=== PATIENT | female | born 1950 | race Caucasian/White ===

== ENCOUNTER → 2023-02-08 13:36 | Outpatient (BNVA) | payer MEDICARE, OTHER, SELFPAY | PROVIDERS: PCP Internal Medicine; Visit Provider Hospitalist | DX: J45.909 Unspecified asthma, uncomplicated (principal); R06.09 Other forms of dyspnea; I27.82 Chronic pulmonary embolism; I27.20 Pulmonary hypertension, unspecified; G47.33 Obstructive sleep apnea (adult) (pediatric) | CPT/HCPCS: 99202 ==

== ENCOUNTER 2023-02-21 10:24 | Outpatient (REF) | payer MEDICARE, OTHER, SELFPAY ==
--- NOTE | ~2023-02-21 | XR_ITS ---
EXAMINATION: XR CHEST 2 VIEWS CLINICAL INFORMATION: Cough. COMPARISON: Chest radiographs dated 05/19/2011. TECHNIQUE: Frontal and lateral views of the chest were obtained. FINDINGS: The heart, great vessels, pulmonary vasculature and mediastinum are normal. The lungs show no focal infiltrate, effusion or pneumothorax. There is minimal linear scar/subsegmental atelectasis at the lateral left base, similar to 05/19/2011. There is no acute osseous abnormality. XR/XR chest 2V IMPRESSION: 1. No focal infiltrate or congestive heart failure is seen. 2. There is chronic minimal scar/subsegmental atelectasis at the lateral left base.
== END 2023-02-21 10:25 | disposition home or self-care (01) ==
LOC: HO.RESP 10:24
PROVIDERS: PCP Internal Medicine; Visit Provider Hospitalist
DX: I27.82 Chronic pulmonary embolism (principal)
CPT/HCPCS: 71046; 78580; 94060; 94727; 94729; A9540

== ENCOUNTER 2023-03-16 09:53 | Outpatient (AMB) | payer MEDICARE, OTHER, SELFPAY ==
--- NOTE | 2023-03-16 09:56 | A.OFFVIS_ITS ---
Intake Vital Signs 03/16/23 09:57 Height 5 ft 4 in Weight 167 lb 8.821 oz BMI 28.8 BP 128/72 Blood Pressure Location Lt brachial Position Sitting Pulse 59 Pulse Source Pulse Oximeter Pulse Oximetry (%) 92 Oxygen Delivery Method Room Air Intake Visit Reasons: sick visit Allergies hydromorphone [From Dilaudid] Allergy (Severe, Verified 03/16/23 10:04) Confusion Sulfa Drugs Allergy (Severe, Uncoded 03/16/23 10:04) Rash HPI sick visit HPI Details is a very pleasant 72 year old female, followed for asthma, JACKIE on CPAP, supplemental oxygen with exertion and chronic pulmonary embolism, on eliquis, 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 At baseline, she is moderately controlled on flovent, singulair, spiriva, xopenex, lasix and flonase. Today she presents for an acute visit. She reports dry cough in the morning the past two days with associated fatigue and chills. She had brown sputum yesterday morning and then this morning had white sputum. Both only occurring once, upon awakening. She denies any fevers or sick contacts, but did report chills yesterday. She denies any chest tightness, new chest pain or hemoptysis. She denies any wheezing or persistent cough throughout the day. Her concern is that she had similar symptoms in the past and ended up admitted with pneumonia. Of note, she also reports redness of right wrist with associated swelling and pain with movement. She reports mild itchiness of the skin and initially though it was poison petra. She denied any injury. She has had this for three days and feels it has been worsening. Advised to go to urgent care for imaging to rule out cellulitis vs septic arthritis. [facility] Medical History (Updated 03/16/23 @ 12:08 by Marquita Mosqueda NP) Asthma Dyspnea JACKIE (obstructive sleep apnea) Pulmonary emboli Pulmonary hypertension Social History Patient Tobacco Use Status: Never used Tobacco Review of Systems ENT Reports Normal hearing present Neuro Reports Normal hearing present Physical Exam Vital Signs: Last Vital Signs Pulse 59 03/16/23 09:57 BP 128/72 03/16/23 09:57 Pulse Ox 92 03/16/23 09:57 Oxygen Delivery Method Room Air 03/16/23 09:57 BMI result Body Mass Index 28.8 Const General: cooperative, healthy appearing, comfortable, no acute distress, well developed and alert Orientation/consciousness: patient oriented x3 Limitations: no limitations HEENT Head: Yes normal to inspection, Yes normocephalic and Yes atraumatic Ears: hearing grossly normal bilaterally and external ears normal Eyes Other: subconjuctival hemorrhage of right eye per Ophthalmology Eyelids: Yes eyelids normal Sclerae: scleral abnormal right EOM: EOMs intact bilaterally Neck Neck: Yes normal visual inspection and Yes no lymphadenopathy Lymphatic: no lymphadenopathy noted Chest Chest palpation & inspection: normal inspection of the chest Resp Effort & Inspection: normal respiratory effort, able to speak in complete sentences, no audible wheezes, no cough, no stridor, not tachypneic, no tripod positioning and no use of accessory muscles Auscultation: clear to auscultation bilaterally Cardio Jugular venous distension: no JVD Rate: regular rate Rhythm: regular rhythm Skin Other: skin warm. right wrist with erythematous and edematous in proximity of distal radius with appearance of ulceration centrally as well as noted limited mobility of wrist Neuro General: patient oriented x3 Cranial nerves: Yes Normal hearing present Cognition (Neuro): normal cognition Gait exam (Neuro): Normal gait present Extrem General: Yes normal to inspection, Yes capillary refill normal and Yes no pedal edema Psych Appearance: grossly normal and well kempt Speech and movement: Normal speech and movement present and Clear speech present Affect: normal affect Attitude: cooperative Thought process: Normal thought process present Thought content: Normal thought content present Insight: Good insight present (Psych) Judgement: Good judgement present (Psych) Assessment & Plan Assessment & Plan (1) Asthma: Code(s): J45.909 - Unspecified asthma, uncomplicated (2) JACKIE (obstructive sleep apnea): Code(s): G47.33 - Obstructive sleep apnea (adult) (pediatric) (3) Pulmonary hypertension: Code(s): I27.20 - Pulmonary hypertension, unspecified (4) Pulmonary emboli: Code(s): I26.99 - Other pulmonary embolism without acute cor pulmonale Qualifiers: Pulmonary embolism type: other Chronicity: chronic Acute cor pulmonale presence: unspecified Qualified Code(s): I27.82 - Chronic pulmonary embolism Plan 's symptoms at this time do not warrant antibiotics but if increased sputum production develops or continued brown sputum occurs advised taking a zpak and obtain CXR. Will put orders in preemptively. Discussed with patient, given her prior history of PE, if she develops worsening shortness of breath or chest pain to seek emergent care. At this time, she denies any significant dyspnea or chest pain. She is not wearing oxygen, as she is sitting, and she is not hypoxic or tachycardic. In regards to her right wrist, strongly encouraged patient to go urgent care for evaluation as she may need antibiotics for cellulitis or imaging. All questions were answered and patient is in agreement of plan. She will follow up for her regularly scheduled appointment next week with Dr. Deleon. Orders: Orders XR chest 2V Today R05.9 - Cough, unspecified Overnight Pulse Oximetry Today R06.00 - Dyspnea, unspecified Medications: New azithromycin For 250 mg dose pack: take 500 mg today (day 1), then 250 mg for 4 days (days 2-5) PO 6 tabs 0RF Coding Level of Care Code Est Pt Level 4 (03373) Diagnoses Asthma J45.909 JACKIE (obstructive sleep apnea) G47.33 Pulmonary hypertension I27.20 Pulmonary emboli I27.82 Pulmonary embolism type: other Chronicity: chronic Acute cor pulmonale presence: unspecified
[2023-03-16 09:57] VITALS: BP 128/72; PULSE 59; O2SAT 92; BMI 28.8
== END 2023-03-16 10:54 | disposition home or self-care (01) ==
PROVIDERS: PCP Internal Medicine; Visit Provider Nurse Practitioner Family
DX: J45.909 Unspecified asthma, uncomplicated (principal); G47.33 Obstructive sleep apnea (adult) (pediatric); I27.20 Pulmonary hypertension, unspecified; I27.82 Chronic pulmonary embolism
CPT/HCPCS: 99214

== ENCOUNTER → 2023-03-16 09:53 | Outpatient (BNVA) | payer MEDICARE, OTHER, SELFPAY | PROVIDERS: PCP Internal Medicine; Visit Provider Nurse Practitioner Family | DX: J45.909 Unspecified asthma, uncomplicated (principal); I27.20 Pulmonary hypertension, unspecified; I27.82 Chronic pulmonary embolism; G47.33 Obstructive sleep apnea (adult) (pediatric) | CPT/HCPCS: 99212 ==

== ENCOUNTER 2023-03-20 14:20 | Outpatient (AMB) | payer MEDICARE, OTHER, SELFPAY ==
[2023-03-20 14:48] VITALS: BP 124/70; PULSE 53; O2SAT 92; BMI 28.8
--- NOTE | 2023-03-20 14:48 | A.OFFVIS_ITS ---
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 Apparently back in 2018 the patient has significant shortness of breath and was evaluated in the hospital. She did have a full cardiac evaluation in addition to a CTA. No evidence of any blood clots at that time. The patient did have an echocardiogram demonstrating pulmonary hypertension. Because her ongoing symptoms in the pulmonary hypertension she was referred to [place] for further care. There she had a level 3 cardiopulmonary exercise tolerance test. Her pulmonary pressures increased minimally without any significant evidence of significant pulmonary hyperten paul. She was not placed on any medicines. She also had a full pulmonary function study done at that time. It appeared that a pulmonary capacity was within normal limits. Only had a mild diffusion impairment. The patient continues to have ongoing symptoms without a clear explanation. She was also started on CPAP in the meantime. Still no improvement. Then in October she was evaluated in [place] which she had a CTA demonstrating evidence of pulmonary emboli. The patient started on Eliquis. Echocardiogram afterwards demonstrated a moderate amount of pulmonary hypertension. 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 She is tolerating the anticoagulation well. She is still short of breath. During the visit we did go for 6 minutes walk test. We did go up an incline. The patient was visibly dyspneic and also she became hypoxic down to 88%. Not only that when she was hypoxic it was noted that she had more ectopy in some degree of bigeminy. Likely induced by the level of hypoxia. I we did try her on oxygen and 2 L did improve her oxygenation and her energy with activity. So therefore will go ahead and start the patient on oxygen as we try to continue to monitor and evaluate her for her ongoing dyspnea symptoms. In part we have to assess the possibility of underlying chronic thromboembolic disease. We will do further testing for this condition. 03/20/2023 the patient is here for a pulmonary follow-up visit. she continues to have significant dyspnea on exertion even with minimal activity. The oxygen supplementation has been helpful for her per in the meantime regarding her history of blood clots she is using her anticoagulation with good effect and she has good adherence. She did undergo a V/Q scan ruling out the possibility of chronic thromboembolic disease. She also has been using her CPAP regularly. Her machine had been adjusted and the overnight oximetry had improved. Will go ahead and repeat that again just to make sure. In addition to this we did review her cardiopulmonary exercise stop all rinse test which was a level 3 study done in [place]. 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 She also had excessive systemic hypertension during the study although the wedge pressure did not demonstrate any evidence of any left- sided heart failure that may have resulted in the pulmonary hypertension. Today we had her undergo a 6 minutes walk test and she still desaturating some although better than the last time that she was here. Still requires the oxygen specially to exercise. Patient did undergo pulmonary function studies and we personally reviewed. No significant obstructive nor restrictive disease although she has a low normal total lung capacity. The diffuse capacity is mildly decreased. 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 She did have an echocardiogram back in January which also demonstrated that her pulmonary pressures were elevated even at rest though. at this point the patient has pulmonary attention that appears to be symptomatic and would benefit from vasodilator therapy. [facility] Medical History (Updated 03/16/23 @ 12:08 by Marquita Mosqueda NP) Asthma Dyspnea JACKIE (obstructive sleep apnea) Pulmonary emboli Pulmonary hypertension Social History Patient Tobacco Use Status: Never used Tobacco Review of Systems Const Denies fever(s) Eyes Reports no additional complaints ENT Denies nasal congestion Card Denies chest pain and Reports dyspnea on exertion Resp Reports dyspnea on exertion and Denies wheezing GI Reports no additional complaints Musc Reports no additional complaints Skin/Breast Denies rash Neuro Reports no additional complaints Endo Reports no additional complaints Cameron/Lymph Denies easy bleeding, Denies easy bruising and Denies lymphadenopathy Aller/Immun Denies wheezing Physical Exam Vital Signs: Last Vital Signs Pulse 53 03/20/23 14:48 BP 124/70 03/20/23 14:48 Pulse Ox 92 03/20/23 14:48 Oxygen Delivery Method Room Air 03/20/23 14:48 BMI result Body Mass Index 28.8 Const General: comfortable HEENT Head: Yes normal to inspection Neck Neck: Yes normal visual inspection Chest Chest palpation & inspection: normal inspection of the chest Resp Effort & Inspection: normal respiratory effort Auscultation: clear to auscultation bilaterally Cardio Rate: regular rate Rhythm: regular rhythm Heart sounds: S1 normal heart sound present and S2 normal heart sound present GI Palpation (GI): Soft to palpation Skin General skin exam: no rashes or lesions noted Extrem General: Yes no clubbing, cyanosis or edema Office Procedures 6 Minute Walk Time:: 15:10 SPO2 % at rest: 96 Pulse at rest: 60 SPO2 % during excercise: 91 Pulse during excercise: 86 SPO2 % after excercise: 94 Pulse after excercise: 60 Distance in yards walked: 300 Joe Score: 5 Supplemental Oxygen: NONE Performance Observations:: Pt walked on level surface for a total of 300 yards. Spo2 remained above 90% at all times. Pt did state her work of breathing was at a 5. [address] - 6 Minute Walk Assessment & Plan Assessment & Plan (1) Dyspnea: Code(s): R06.00 - Dyspnea, unspecified Qualifiers: Dyspnea type: dyspnea on exertion Qualified Code(s): R06.09 - Other forms of dyspnea (2) Pulmonary emboli: Code(s): I26.99 - Other pulmonary embolism without acute cor pulmonale Qualifiers: Acute cor pulmonale presence: unspecified Chronicity: chronic Pulmonary embolism type: other Qualified Code(s): I27.82 - Chronic pulmonary embolism (3) Pulmonary hypertension: Code(s): I27.20 - Pulmonary hypertension, unspecified (4) Asthma: Code(s): J45.909 - Unspecified asthma, uncomplicated (5) JACKIE (obstructive sleep apnea): Code(s): G47.33 - Obstructive sleep apnea (adult) (pediatric) Plan Oxygen supplementation 2L/pulse with b cylinders Continue Eliquis BID start Sildenafil 20mg PO TID (no nitrates) continue CPAP therapy repeat overnight oximetry on CPAP continue respiratory therapy with spiriva HARPAL as needed F/U 6-10 weeks Orders: Orders Overnight Pulse Oximetry Today I27.20 - Pulmonary hypertension, unspecified AMB 6 minute walk Today R06.00 - Dyspnea, unspecified Medications: New sildenafil (pulm.hypertension) administer doses at least 4-6 hours apart 20 mg PO TID 30 days 90 tabs 3RF Coding Level of Care Code Est Pt Level 5 (39099) Diagnoses Dyspnea R06.09 Dyspnea type: dyspnea on exertion Pulmonary emboli I27.82 Acute cor pulmonale presence: unspecified Chronicity: chronic Pulmonary embolism type: other Pulmonary hypertension I27.20 Asthma J45.909 JACKIE (obstructive sleep apnea) G47.33 CPT Codes Coding ([id number]) Time Spent (min) 45
[2023-03-20 15:37] VITALS: PULSE 60; O2SAT 96
== END 2023-03-20 15:29 | disposition home or self-care (01) ==
PROVIDERS: PCP Internal Medicine; Visit Provider Hospitalist
DX: I27.82 Chronic pulmonary embolism (principal); I27.20 Pulmonary hypertension, unspecified; R06.09 Other forms of dyspnea; G47.33 Obstructive sleep apnea (adult) (pediatric)
CPT/HCPCS: 94618; 99215

== ENCOUNTER → 2023-03-20 14:20 | Outpatient (BNVA) | payer MEDICARE, OTHER, SELFPAY | PROVIDERS: PCP Internal Medicine; Visit Provider Hospitalist | DX: R06.09 Other forms of dyspnea (principal); J45.909 Unspecified asthma, uncomplicated; I27.82 Chronic pulmonary embolism; I26.99 Other pulmonary embolism without acute cor pulmonale; G47.33 Obstructive sleep apnea (adult) (pediatric); Z99.89 Dependence on other enabling machines and devices | CPT/HCPCS: 94618; 99212 ==

== ENCOUNTER 2023-04-12 10:53 | Outpatient (AMB) | payer MEDICARE, OTHER, SELFPAY ==
[2023-04-12 11:21] VITALS: BP 126/70; PULSE 50; O2SAT 95; BMI 29.3
--- NOTE | 2023-04-12 11:21 | A.OFFVIS_ITS ---
Intake Vital Signs 04/12/23 11:21 Height 5 ft 4 in Weight 171 lb BMI 29.3 BP 126/70 Blood Pressure Location Lt brachial Position Sitting Pulse 50 Pulse Source Pulse Oximeter Pulse Oximetry (%) 95 Oxygen Delivery Method Room Air Intake Visit Reasons: Pulmonary Embolism Subject Scientific Research Required: No Allergies hydromorphone [From Dilaudid] Allergy (Severe, Verified 04/12/23 11:23) Confusion Sulfa Drugs Allergy (Severe, Uncoded 04/12/23 11:23) Rash HPI HPI Comments History of Present Illness Details The patient is a 72 year woman who has been complaining of worsening shortness of breath for the last several years. Apparently back in 2018 the patient has significant shortness of breath and was evaluated in the hospital. She did have a full cardiac evaluation in addition to a CTA. No evidence of any blood clots at that time. The patient did have an echocardiogram demonstrating pulmonary hypertension. Because her ongoing symptoms in the pulmonary hypertension she was referred to [place] for further care. There she had a level 3 cardiopulmonary exercise tolerance test. Her pulmonary pressures increased minimally without any significant evidence of significant pulmonary hypertension. She was not placed on any medicines. She also had a full pulmonary function study done at that time. It appeared that a pulmonary capacity was within normal limits. Only had a mild diffusion impairment. The patient continues to have ongoing symptoms without a clear explanation. She was also started on CPAP in the meantime. Still no improvement. Then in October she was evaluated in [place] which she had a CTA demonstrating evidence of pulmonary emboli. The patient started on Eliquis. Echocardiogram afterwards demonstrated a moderate amount of pulmonary hypertension. 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 She is tolerating the anticoagulation well. She is still short of breath. During the visit we did go for 6 minutes walk test. We did go up an incline. The patient was visibly dyspneic and also she became hypoxic down to 88%. Not only that when she was hypoxic it was noted that she had more ectopy in some degree of bigeminy. Likely induced by the level of hypoxia. I we did try her on oxygen and 2 L did improve her oxygenation and her energy with activity. So therefore will go ahead and start the patient on oxygen as we try to continue to monitor and evaluate her for her ongoing dyspnea symptoms. In part we have to assess the possibility of underlying chronic thromboembolic disease. We will do further testing for this condition. 03/20/2023 the patient is here for a pulmonary follow-up visit. she continues to have significant dyspnea on exertion even with minimal activity. The oxygen supplementation has been helpful for her per in the meantime regarding her history of blood clots she is using her anticoagulation with good effect and she has good adherence. She did undergo a V/Q scan ruling out the possibility of chronic thromboembolic disease. She also has been using her CPAP regularly. Her machine had been adjusted and the overnight oximetry had improved. Will go ahead and repeat that again just to make sure. In addition to this we did review her cardiopulmonary exercise stop all rinse test which was a level 3 study done in [place]. 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 She also had excessive systemic hypertension during the study although the wedge pressure did not demonstrate any evidence of any left- sided heart failure that may have resulted in the pulmonary hypertension. Today we had her undergo a 6 minutes walk test and she still desaturating some although better than the last time that she was here. Still requires the oxygen specially to exercise. Patient did undergo pulmonary function studies and we personally reviewed. No significant obstructive nor restrictive disease although she has a low normal total lung capacity. The diffuse capacity is mildly decreased. 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 She did have an echocardiogram back in January which also demonstrated that her pulmonary pressures were elevated even at rest though. at this point the patient has pulmonary attention that appears to be symptomatic and would benefit from vasodilator therapy. 04/12/2023 the patient is here for pulmonary follow-up visit. Continues to have dyspnea on exertion moderate severity. The oxygen continues to be helpful. She continues on the Lasix 20 mg daily. She is not weighing herself daily at this time. We were trying to get her on sildenafil although her insurance denied it. We did send a prior approval for in order to get her on sildenafil for the pulmonary hypertension but they still denied it. We did review her level 3 CPET that she had about 4 years ago demonstrating exercise-induced pulmonary hypertension. Ultimately after that she ended up with the thromboembolic disease back in October 2022. We did perform a V/Q scan that was reassuring she will have another CTA ordered by her scrap bunch maker to make sure that there is no further evidence of thrombolic disease. The patient had an echocardiogram demo nstrating elevated pulmonary pressures in addition to that had a brain natretic peptide was significantly elevated at 1900. Therefore, the appears to be some degree of ardiac strain. I do believe the patient will benefit from vaso- dilatory therapy for her pulmonary hypertension. At this point she will require a referral back to [place] to further address the degree of pulmonary hypertension with a repeat evaluation. Currently she is within the [facility] [facility] system therefore will go ahead and refer her to [facility]. In the meantime she will increase her Lasix to 40 mg daily for about 5 days and then she will weigh herself daily and monitor for any weight gain and she will take additional Lasix if her weight increases to a certain degree. I did give her instructions. She continues on the Eliquis and she is adherent to the therapy. She will follow-up with the scrap bunch maker regarding the thromboembolic disease and hyper hypercoagulable state. At this point it is considered to be unprovoked. Not clear if this is related to COVID or not. At this point she will follow up with scrap bunch maker for further evaluation. [facility] Medical History (Updated 03/16/23 @ 12:08 by Marquita Mosqueda NP) Asthma Dyspnea JACKIE (obstructive sleep apnea) Pulmonary emboli Pulmonary hypertension Social History Patient Tobacco Use Status: Never used Tobacco Review of Systems Const Denies fever(s) Eyes Reports no additional complaints ENT Denies nasal congestion Card Denies chest pain and Reports dyspnea on exertion Resp Reports dyspnea on exertion and Denies wheezing GI Reports no additional complaints Musc Reports no additional complaints Skin/Breast Denies rash Neuro Reports no additional complaints Endo Reports no additional complaints Cameron/Lymph Denies easy bleeding, Denies easy bruising and Denies lymphadenopathy Aller/Immun Denies wheezing Physical Exam Vital Signs: Last Vital Signs Pulse 50 04/12/23 11:21 BP 126/70 04/12/23 11:21 Pulse Ox 95 04/12/23 11:21 Oxygen Delivery Method Room Air 04/12/23 11:21 BMI result Body Mass Index 29.3 Const General: comfortable HEENT Head: Yes normal to inspection Neck Neck: Yes normal visual inspection Chest Chest palpation & inspection: normal inspection of the chest Resp Effort & Inspection: normal respiratory effort Auscultation: clear to auscultation bilaterally Cardio Palpation: thrill Rate: regular rate Rhythm: regular rhythm Heart sounds: S1 normal heart sound present, S2 normal heart sound present and Abnormal heart opening sounds loud S2 GI Palpation (GI): Soft to palpation Skin General skin exam: no rashes or lesions noted Extrem General: Yes no clubbing, cyanosis or edema Assessment & Plan Assessment & Plan (1) Dyspnea: Code(s): R06.00 - Dyspnea, unspecified Qualifiers: Dyspnea type: dyspnea on exertion Qualified Code(s): R06.09 - Other forms of dyspnea (2) Pulmonary emboli: Code(s): I26.99 - Other pulmonary embolism without acute cor pulmonale Qualifiers: Acute cor pulmonale presence: unspecified Chronicity: chronic Pulmonary embolism type: other Qualified Code(s): I27.82 - Chronic pulmonary embolism (3) Pulmonary hypertension: Code(s): I27.20 - Pulmonary hypertension, unspecified (4) Asthma: Code(s): J45.909 - Unspecified asthma, uncomplicated (5) JACKIE (obstructive sleep apnea): Code(s): G47.33 - Obstructive sleep apnea (adult) (pediatric) Plan Oxygen supplementation 2L/pulse with b cylinders Continue Eliquis BID increase lasix 40mg daily x 5 days, then back to 20mg daily weights continue CPAP therapy continue respiratory therapy with spiriva HARPAL as needed refer to [facility] pulmonary HTN clinic F/U 4 months Coding Level of Care Code Est Pt Level 5 (27947) Diagnoses Dyspnea R06.09 Dyspnea type: dyspnea on exertion Pulmonary emboli I27.82 Acute cor pulmonale presence: unspecified Chronicity: chronic Pulmonary embolism type: other Pulmonary hypertension I27.20 Asthma J45.909 JACKIE (obstructive sleep apnea) G47.33 Time Spent (min) 45
== END 2023-04-12 11:48 | disposition home or self-care (01) ==
PROVIDERS: PCP Internal Medicine; Visit Provider Hospitalist
DX: I27.82 Chronic pulmonary embolism (principal); J45.909 Unspecified asthma, uncomplicated; I27.20 Pulmonary hypertension, unspecified; G47.33 Obstructive sleep apnea (adult) (pediatric)
CPT/HCPCS: 99215

== ENCOUNTER → 2023-04-12 10:53 | Outpatient (BNVA) | payer MEDICARE, OTHER, SELFPAY | PROVIDERS: PCP Internal Medicine; Visit Provider Hospitalist | DX: I27.82 Chronic pulmonary embolism (principal); I27.20 Pulmonary hypertension, unspecified; J45.909 Unspecified asthma, uncomplicated; G47.33 Obstructive sleep apnea (adult) (pediatric); R06.09 Other forms of dyspnea | CPT/HCPCS: 99212 ==

== ENCOUNTER 2023-05-29 14:18 | Outpatient (REF) | payer MEDICARE, OTHER, SELFPAY | END 2023-05-29 14:19 | disposition home or self-care (01) | LOC: HO.LAB 14:18 | PROVIDERS: PCP Internal Medicine; Visit Provider Hospitalist | DX: R06.09 Other forms of dyspnea (principal) | CPT/HCPCS: 36415; 80048; 83735; 85025 ==

== ENCOUNTER 2023-06-01 10:27 | Outpatient (REF) | payer MEDICARE, OTHER, SELFPAY ==
[2023-06-01 11:48] LABS: Venous Blood Gas Refer to POC result
[2023-06-01 11:53] LABS: VBG Base Excess 7.1 mmol/L; VBG HCO3 32 mmol/L (22-26); VBG pCO2 47 mmHg; VBG pH 7.43 (7.32-7.43); VBG pO2 76 mmHg
[2023-06-01 11:54] LABS: Ammonia 31 umol/L (13-55)
[2023-06-01 11:59] LABS: B Type Natriuretic Peptide 1063 pg/mL (<100)
[2023-06-01 12:01] LABS: Troponin-I High Sensitivity < 2.7 ng/L (<3.5-17.0)
[2023-06-01 12:14] LABS: TSH reflex Free T4 2.47 uIU/mL (0.32-4.0)
[2023-06-09 18:34] LABS: Cortisol, Free 0.28 mcg/dL
== END 2023-06-01 10:28 | disposition home or self-care (01) ==
LOC: HO.LAB 10:27
PROVIDERS: PCP Internal Medicine; Visit Provider Hospitalist
DX: I27.20 Pulmonary hypertension, unspecified (principal); I27.82 Chronic pulmonary embolism; J45.40 Moderate persistent asthma, uncomplicated; R06.09 Other forms of dyspnea; G47.33 Obstructive sleep apnea (adult) (pediatric); Z79.01 Long term (current) use of anticoagulants; Z99.81 Dependence on supplemental oxygen
CPT/HCPCS: 36415; 82140; 82530; 82803; 83880; 84443; 84484; 99212

== ENCOUNTER 2023-06-01 10:27 | Outpatient (AMB) | payer MEDICARE, OTHER, SELFPAY ==
--- NOTE | 2023-06-01 10:33 | MHC.OFFVIS ---
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 Apparently back in 2018 the patient has significant shortness of breath and was evaluated in the hospital. She did have a full cardiac evaluation in addition to a CTA. No evidence of any blood clots at that time. The patient did have an echocardiogram demonstrating pulmonary hypertension. Because her ongoing symptoms in the pulmonary hypertension she was referred to [place] for further care. There she had a level 3 cardiopulmonary exercise tolerance test. Her pulmonary pressures increased minimally without any significant evidence of significant pulmonary hypertension. She was not placed on any medicines. She also had a full pulmonary function study done at that time. It appeared that a pulmonary capacity was within normal limits. Only had a mild diffusion impairment. The patient continues to have ongoing symptoms without a clear explanation. She was also started on CPAP in the meantime. Still no improvement. Then in October she was evaluated in [place] which she had a CTA demonstrating evidence of pulmonary emboli. The patient started on Eliquis. Echocardiogram afterwards demonstrated a moderate amount of pulmonary hypertension. She does have a disposition clerk in that area. She is tolerating the anticoagulation well. She is still short of breath. During the visit we did go for 6 minutes walk test. We did go up an incline. The patient was visibly dyspneic and also she became hypoxic down to 88%. Not only that when she was hypoxic it was noted that she had more ectopy in some degree of bigeminy. Likely induced by the level of hypoxia. I we did try her on oxygen and 2 L did improve her oxygenation and her energy with activity. So therefore will go ahead and start the patient on oxygen as we try to continue to monitor and evaluate her for her ongoing dyspnea symptoms. In part we have to assess the possibility of underlying chronic thromboembolic disease. We will do further testing for this condition. 03/20/2023 the patient is here for a pulmonary follow-up visit. she continues to have significant dyspnea on exertion even with minimal activity. The oxygen supplementation has been helpful for her per in the meantime regarding her history of blood clots she is using her anticoagulation with good effect and she has good adherence. She did undergo a V/Q scan ruling out the possibility of chronic thromboembolic disease. She also has been using her CPAP regularly. Her machine had been adjusted and the overnight oximetry had improved. Will go ahead and repeat that again just to make sure. In addition to this we did review her cardiopulmonary exercise stop all rinse test which was a level 3 study done in [place]. 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 She also had excessive systemic hypertension during the study although the wedge pressure did not demonstrate any evidence of any left-sided heart failure that may have resulted in the pulmonary hypertension. Today we had her undergo a 6 minutes walk test and she still desaturating some although better than the last time that she was here. Still requires the oxygen specially to exercise. Patient did undergo pulmonary function studies and we personally reviewed. No significant obstructive nor restrictive disease although she has a low normal total lung capacity. The diffuse capacity is mildly decreased. 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 She did have an echocardiogram back in January which also demonstrated that her pulmonary pressures were elevated even at rest though. at this point the patient has pulmonary attention that appears to be symptomatic and would benefit from vasodilator therapy. 04/12/2023 the patient is here for pulmonary follow-up visit. Continues to have dyspnea on exertion moderate severity. The oxygen continues to be helpful. She continues on the Lasix 20 mg daily. She is not weighing herself daily at this time. We were trying to get her on sildenafil although her insurance denied it. We did send a prior approval for in order to get her on sildenafil for the pulmonary hypertension but they still denied it. We did review her level 3 CPET that she had about 4 years ago demonstrating exercise-induced pulmonary hypertension. Ultimately after that she ended up with the thromboembolic disease back in October 2022. We did perform a V/Q scan that was reassuring she will have another CTA ordered by her disposition clerk to make sure that there is no further evidence of thrombolic disease. The patient had an echocardiogram demonstrating elevated pulmonary pressures in addition to that had a brain natretic peptide was significantly elevated at 1900. Therefore, the appears to be some degree of ardiac strain. I do believe the patient will benefit from vaso-dilatory therapy for her pulmonary hypertension. At this point she will require a referral back to [place] to further address the degree of pulmonary hypertension with a repeat evaluation. Currently she is within the [facility] system therefore will go ahead and refer her to [facility]. In the meantime she will increase her Lasix to 40 mg daily for about 5 days and then she will weigh herself daily and monitor for any weight gain and she will take additional Lasix if her weight increases to a certain degree. I did give her instructions. She continues on the Eliquis and she is adherent to the therapy. She will follow-up with the disposition clerk regarding the thromboembolic disease and hyper hypercoagulable state. At this point it is considered to be unprovoked. Not clear if this is related to COVID or not. At this point she will follow up with disposition clerk for further evaluation. 06/01/2023 the patient is here for a pulmonary follow-up visit. She is feeling more drowsy during the daytime. She says that she tends to fall asleep during the day. She has decreased energy. She has been also noticing she is been needing additional oxygen. She is wondering if that is related. Explained to her that is unlikely to be her oxygen. Although will go ahead and check a venous gas to make sure that his CO2 is okay. the patient did follow-up with cardiology. Her brain natriuretic peptide was elevated. She is already on Lasix. These recommended talking to pulmonary. The patient understands that this is likely due to significant straining to the right ventricle. She was given a referral to [facility] hypertension [facility] but there is a long delay. We will call them again to see if they can move up her appointment. In the meantime we will increase her diuretics if her brain atretic peptide continues be elevated and also if she is continues to be symptomatic. she continues use the oxygen with activity. We did go for brief walking oximetry and she actually did fairly well and there was reassuring for her. I encouraged her to stay active. Also did review her CT scan of the chest PE protocol demonstrating interval resolution her blood clots and otherwise stable findings. [facility] Medical History (Updated 06/01/23 @ 10:58 by Joni Deleon MD) JACKIE (obstructive sleep apnea) Asthma Pulmonary hypertension Pulmonary emboli Dyspnea Social History Patient Tobacco Use Status: Never used Tobacco Review of Systems Const Reports daytime sleepiness and Denies fever(s) Eyes Reports no additional complaints ENT Denies nasal congestion Card Denies chest pain and Reports dyspnea on exertion Resp Reports dyspnea on exertion and Denies wheezing GI Reports no additional complaints Musc Reports no additional complaints Skin/Breast Denies rash Neuro Reports no additional complaints Endo Reports no additional complaints Cameron/Lymph Denies easy bleeding, Denies easy bruising and Denies lymphadenopathy Aller/Immun Denies wheezing Physical Exam Vital Signs: Last Vital Signs Pulse 60 06/01/23 10:34 BP 140/90 H 06/01/23 10:34 Pulse Ox 97 06/01/23 10:34 Oxygen Delivery Method Room Air 06/01/23 10:34 BMI result Body Mass Index 29.2 Const General: comfortable HEENT Head: Yes normal to inspection Neck Neck: Yes normal visual inspection Chest Chest palpation & inspection: normal inspection of the chest Resp Effort & Inspection: normal respiratory effort Auscultation: clear to auscultation bilaterally Cardio Palpation: thrill Rate: regular rate Rhythm: regular rhythm Heart sounds: S1 normal heart sound present, S2 normal heart sound present and Abnormal heart opening sounds loud S2 GI Palpation (GI): Soft to palpation Skin General skin exam: no rashes or lesions noted Extrem General: Yes no clubbing, cyanosis or edema Results Reviewed Results Reviewed: reviewed by me. Assessment & Plan Assessment & Plan (1) Dyspnea: Code(s): R06.00 - Dyspnea, unspecified Qualifiers: Dyspnea type: dyspnea on exertion Qualified Code(s): R06.09 - Other forms of dyspnea (2) Pulmonary emboli: Code(s): I26.99 - Other pulmonary embolism without acute cor pulmonale Qualifiers: Acute cor pulmonale presence: unspecified Chronicity: chronic Pulmonary embolism type: other Qualified Code(s): I27.82 - Chronic pulmonary embolism (3) Pulmonary hypertension: Code(s): I27.20 - Pulmonary hypertension, unspecified (4) Asthma: Code(s): J45.909 - Unspecified asthma, uncomplicated Qualifiers: Asthma complication type: uncomplicated Asthma persistence: persistent Asthma severity: moderate Qualified Code(s): J45.40 - Moderate persistent asthma, uncomplicated (5) JACKIE (obstructive sleep apnea): Code(s): G47.33 - Obstructive sleep apnea (adult) (pediatric) Plan Oxygen supplementation 2L/pulse with b cylinders Continue Eliquis BID bloodwork increase lasix 40mg daily x 5 days, then back to 20mg daily weights continue CPAP therapy overnight oximetry on CPAP RA continue respiratory therapy with spiriva HARPAL as needed refer to [facility] [place] [place] pulmonary HTN clinic pending F/U 4 months Orders: Orders Venous Blood Gas 06/01/23 I27.20 - Pulmonary hypertension, unspecified Cortisol, Free 06/01/23 I27.20 - Pulmonary hypertension, unspecified Troponin-I High Sensitivity 06/01/23 I27.20 - Pulmonary hypertension, unspecified B Type Natriuretic Peptide 06/01/23 I27.20 - Pulmonary hypertension, unspecified TSH reflex Free T4 06/01/23 I27.20 - Pulmonary hypertension, unspecified Ammonia 06/01/23 I27.20 - Pulmonary hypertension, unspecified Overnight Pulse Oximetry Today I27.20 - Pulmonary hypertension, unspecified Coding Level of Care Code Est Pt Level 5 (50259) Diagnoses Dyspnea on exertion R06.09 Dyspnea type: dyspnea on exertion Other chronic pulmonary embolism, unspecified whether acute cor pulmonale present I27.82 Acute cor pulmonale presence: unspecified Chronicity: chronic Pulmonary embolism type: other Pulmonary hypertension I27.20 Moderate persistent asthma without complication J45.40 Asthma complication type: uncomplicated Asthma persistence: persistent Asthma severity: moderate JACKIE (obstructive sleep apnea) G47.33 Time Spent (min) 35
[2023-06-01 10:34] VITALS: BP 140/90; PULSE 60; O2SAT 97; BMI 29.2
== END 2023-06-01 11:12 | disposition home or self-care (01) ==
PROVIDERS: PCP Internal Medicine; Visit Provider Hospitalist
DX: J45.40 Moderate persistent asthma, uncomplicated (principal); I27.82 Chronic pulmonary embolism; I27.20 Pulmonary hypertension, unspecified; G47.33 Obstructive sleep apnea (adult) (pediatric)
CPT/HCPCS: 99214

== ENCOUNTER 2023-07-05 10:20 | Outpatient (AMB) | payer MEDICARE, OTHER, SELFPAY ==
--- NOTE | 2023-07-05 10:28 | A.OFFVIS_ITS ---
Intake Vital Signs 07/05/23 10:29 Height 5 ft 4 in Weight 170 lb BMI 29.2 BP 128/70 Blood Pressure Location Lt brachial Position Sitting Pulse 60 Pulse Source Pulse Oximeter Pulse Oximetry (%) 94 Oxygen Delivery Method Room Air Comment 2 Liters Oxygen(Inogen One) Intake Visit Reasons: Hypoxia Exhibit Electrician Required: No Allergies hydromorphone [From Dilaudid] Allergy (Severe, Verified 07/05/23 10:32) Confusion Sulfa Drugs Allergy (Severe, Uncoded 07/05/23 10:32) Rash HPI HPI Comments History of Present Illness Details The patient is a 73 year woman who has been complaining of worsening shortness of breath for the last several years. Apparently back in 2018 the patient has significant shortness of breath and was evaluated in the hospital. She did have a full cardiac evaluation in addition to a CTA. No evidence of any blood clots at that time. The patient did have an echocardiogram demonstrating pulmonary hypertension. Because her ongoing symptoms in the pulmonary hypertension she was referred to [place] for further care. There she had a level 3 cardiopulmonary exercise tolerance test. Her pulmonary pressures increased minimally without any significant evidence of significant pulmonary hypertension. She was not placed on any medicines. She also had a full pulmonary function study done at that time. It appeared that a pulmonary capacity was within normal limits. Only had a mild diffusion impairment. The patient continues to have ongoing symptoms without a clear explanation. She was also started on CPAP in the meantime. Still no improvement. Then in October she was evaluated in [place] which she had a CTA demonstrating evidence of pulmonary emboli. The patient started on Eliquis. Echocardiogram afterwards demonstrated a moderate amount of pulmonary hypertension. She does have a master pilot in that area. She is tolerating the anticoagulation well. She is still short of breath. During the visit we did go for 6 minutes walk test. We did go up an incline. The patient was visibly dyspneic and also she became hypoxic down to 88%. Not only that when she was hypoxic it was noted that she had more ectopy in some degree of bigeminy. Likely induced by the level of hypoxia. I we did try her on oxygen and 2 L did improve her oxygenation and her energy with activity. So therefore will go ahead and start the patient on oxygen as we try to continue to monitor and evaluate her for her ongoing dyspnea symptoms. In part we have to assess the possibility of underlying chronic thromboembolic disease. We will do further testing for this condition. 03/20/2023 the patient is here for a pulmonary follow-up visit. she continues to have significant dyspnea on exertion even with minimal activity. The oxygen supplementation has been helpful for her per in the meantime regarding her history of blood clots she is using her anticoagulation with good effect and she has good adherence. She did undergo a V/Q scan ruling out the possibility of chronic thromboembolic disease. She also has been using her CPAP regularly. Her machine had been adjusted and the overnight oximetry had improved. Will go ahead and repeat that again just to make sure. In addition to this we did review her cardiopulmonary exercise stop all rinse test which was a level 3 study done in [place]. 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 She also had excessive systemic hypertension during the study although the wedge pressure did not demonstrate any evidence of any left- sided heart failure that may have resulted in the pulmonary hypertension. Today we had her undergo a 6 minutes walk test and she still desaturating some although better than the last time that she was here. Still requires the oxygen specially to exercise. Patient did undergo pulmonary function studies and we personally reviewed. No significant obstructive nor restrictive disease although she has a low normal total lung capacity. The diffuse capacity is mildly decreased. 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 She did have an echocardiogram back in January which also demonstrated that her pulmonary pressures were elevated even at rest though. at this point the patient has pulmonary attention that appears to be symptomatic and would benefit from vasodilator therapy. 04/12/2023 the patient is here for pulmon thomas follow-up visit. Continues to have dyspnea on exertion moderate severity. The oxygen continues to be helpful. She continues on the Lasix 20 mg daily. She is not weighing herself daily at this time. We were trying to get her on sildenafil although her insurance denied it. We did send a prior approval for in order to get her on sildenafil for the pulmonary hypertension but they still denied it. We did review her level 3 CPET that she had about 4 years ago demonstrating exercise-induced pulmonary hypertension. Ultimately after that she ended up with the thromboembolic disease back in October 2022. We did perform a V/Q scan that was reassuring she will have another CTA ordered by her master pilot to make sure that there is no further evidence of thrombolic disease. The patient had an echocardiogram demonstrating elevated pulmonary pressures in addition to that had a brain natretic peptide was significantly elevated at 1900. Therefore, the appears to be some degree of ardiac strain. I do believe the patient will benefit from vaso-dilatory therapy for her pulmonary hypertension. At this point she will require a referral back to [place] to further address the degree of pulmonary hypertension with a repeat evaluation. Currently she is within the [facility] [employer] system therefore will go ahead and refer her to [facility]. In the meantime she will increase her Lasix to 40 mg daily for about 5 days and then she will weigh herself daily and monitor for any weight gain and she will take additional Lasix if her weight increases to a certain degree. I did give her instructions. She continues on the Eliquis and she is adherent to the therapy. She will follow-up with the master pilot regarding the thromboembolic disease and hyper hypercoagulable state. At this point it is considered to be unprovoked. Not clear if this is related to COVID or not. At this point she will follow up with master pilot for further evaluation. 06/01/2023 the patient is here for a pulmonary follow-up visit. She is feeling more drowsy during the daytime. She says that she tends to fall asleep during the day. She has decreased energy. She has been also noticing she is been needing additional oxygen. She is wondering if that is related. Explained to her that is unlikely to be her oxygen. Although will go ahead and check a venous gas to make sure that his CO2 is okay. the patient did follow-up with cardiology. Her brain natriuretic peptide was elevated. She is already on Lasix. These recommended talking to pulmonary. The patient understands that this is likely due to significant straining to the right ventricle. She was given a referral to [facility] but there is a long delay. We will call them again to see if they can move up her appointment. In the meantime we will increase her diuretics if her brain atretic peptide continues be elevated and also if she is continues to be symptomatic. she continues use the oxygen with activity. We did go for brief walking oximetry and she actually did fairly well and there was reassuring for her. I encouraged her to stay active. Also did review her CT scan of the chest PE protocol demonstrating interval resolution her blood clots and otherwise stable findings. 07/05/2023 the patient is here for a pulmonary follow-up visit. The patient overall is doing about the same. She is using her portable oxygen concentrator. The therapy has been effective providing her with better portability outside of the home. She continues with her diuresis. The lower extremity edema is overall better. The patient did have the visit with [facility] pulmonary hypertension clinic. They did go ahead and order a level 3 cardiopulmonary exercise study. Although it is not till September. The patient continues to be symptomatic therefore, I am going to speak to her cardiology team to see if we can at least do a right heart catheterization locally in to see if we can get all the answers that we need. If the right heart catheterization is not helpful then she can proceed have her level 3 CPAP. The patient continues to be more symptomatic so I do believe that the her CT hopefully can give us enough information to start her on vasodilators carole therapy if does what she needs. [facility] Medical History (Updated 06/01/23 @ 10:58 by Joni Deleon MD) JACKIE (obstructive sleep apnea) Asthma Pulmonary hypertension Pulmonary emboli Dyspnea Social History Patient Tobacco Use Status: Never used Tobacco Review of Systems Const Reports daytime sleepiness and Denies fever(s) Eyes Reports no additional complaints ENT Denies nasal congestion Card Denies chest pain and Reports dyspnea on exertion Resp Reports dyspnea on exertion and Denies wheezing GI Reports no additional complaints Musc Reports no additional complaints Skin/Breast Denies rash Neuro Reports no additional complaints Endo Reports no additional complaints Cameron/Lymph Denies easy bleeding, Denies easy bruising and Denies lymphadenopathy Aller/Immun Denies wheezing Physical Exam Vital Signs: Last Vital Signs Pulse 60 07/05/23 10:29 BP 128/70 07/05/23 10:29 Pulse Ox 94 07/05/23 10:29 Oxygen Delivery Method Room Air 07/05/23 10:29 BMI result Body Mass Index 29.2 Const General: comfortable HEENT Head: Yes normal to inspection Neck Neck: Yes normal visual inspection Chest Chest palpation & inspection: normal inspection of the chest Resp Effort & Inspection: normal respiratory effort Auscultation: clear to auscultation bilaterally Cardio Palpation: thrill Rate: regular rate Rhythm: regular rhythm Heart sounds: S1 normal heart sound present, S2 normal heart sound present and Abnormal heart opening sounds loud S2 GI Palpation (GI): Soft to palpation Skin General skin exam: no rashes or lesions noted Extrem General: Yes no clubbing, cyanosis or edema Assessment & Plan Assessment & Plan (1) Dyspnea: Code(s): R06.00 - Dyspnea, unspecified Qualifiers: Dyspnea type: dyspnea on exertion Qualified Code(s): R06.09 - Other forms of dyspnea (2) Pulmonary emboli: Code(s): I26.99 - Other pulmonary embolism without acute cor pulmonale Qualifiers: Acute cor pulmonale presence: unspecified Chronicity: chronic Pulmonary embolism type: other Qualified Code(s): I27.82 - Chronic pulmonary embolism (3) Pulmonary hypertension: Code(s): I27.20 - Pulmonary hypertension, unspecified (4) Asthma: Code(s): J45.909 - Unspecified asthma, uncomplicated Qualifiers: Asthma complication type: uncomplicated Asthma persistence: persistent Asthma severity: moderate Qualified Code(s): J45.40 - Moderate persistent asthma, uncomplicated (5) JACKIE (obstructive sleep apnea): Code(s): G47.33 - Obstructive sleep apnea (adult) (pediatric) Plan Oxygen supplementation 2L/pulse with POC Continue Eliquis BID continue diuresis as tolerated daily weights continue CPAP therapy continue respiratory therapy with spiriva HARPAL as needed refer to [facility] pulmonary HTN clinic, Level 3 CPET for September In the meantime, will request RHC from her cardiology team F/U 4 months Coding Level of Care Code Est Pt Level 4 ([id number]) Diagnoses Dyspnea on exertion R06.09 Dyspnea type: dyspnea on exertion Other chronic pulmonary embolism, unspecified whether acute cor pulmonale present I27.82 Acute cor pulmonale presence: unspecified Chronicity: chronic Pulmonary embolism type: other Pulmonary hypertension I27.20 Moderate persistent asthma without complication J45.40 Asthma complication type: uncomplicated Asthma persistence: persistent Asthma severity: moderate JACKIE (obstructive sleep apnea) G47.33 Time Spent (min) 18
[2023-07-05 10:29] VITALS: BP 128/70; PULSE 60; O2SAT 94; BMI 29.2
== END 2023-07-05 11:02 | disposition home or self-care (01) ==
PROVIDERS: PCP Internal Medicine; Visit Provider Hospitalist
DX: R06.09 Other forms of dyspnea (principal); I27.82 Chronic pulmonary embolism; I27.20 Pulmonary hypertension, unspecified; J45.40 Moderate persistent asthma, uncomplicated; G47.33 Obstructive sleep apnea (adult) (pediatric)
CPT/HCPCS: 99214

== ENCOUNTER → 2023-07-05 10:20 | Outpatient (BNVA) | payer MEDICARE, OTHER, SELFPAY | PROVIDERS: PCP Internal Medicine; Visit Provider Hospitalist | DX: R06.09 Other forms of dyspnea (principal); I27.20 Pulmonary hypertension, unspecified; I27.82 Chronic pulmonary embolism; J45.40 Moderate persistent asthma, uncomplicated; G47.33 Obstructive sleep apnea (adult) (pediatric) | CPT/HCPCS: 99212 ==

== ENCOUNTER 2023-08-17 09:39 | Outpatient (REF) | payer MEDICARE, OTHER, SELFPAY | END 2023-08-17 09:40 | disposition home or self-care (01) | LOC: HO.XRAY 09:39 | PROVIDERS: PCP Internal Medicine; Visit Provider Hospitalist | DX: R05.9 Cough, unspecified (principal) | CPT/HCPCS: 71046 ==

== ENCOUNTER 2023-11-26 15:21 | Outpatient (AMB) | payer MEDICARE, OTHER, SELFPAY ==
--- NOTE | 2023-11-26 15:31 | A.OFFVIS_ITS ---
Intake Vital Signs 11/26/23 15:32 Height 5 ft 4 in Weight 174 lb BMI 29.9 Pulse 90 Pulse Source Pulse Oximeter Pulse Oximetry (%) 95 Oxygen Delivery Method Room Air Intake Visit Reasons: Pulmonary embolism Integrity Manager Required: No Allergies hydromorphone [From Dilaudid] Allergy (Severe, Verified 11/26/23 15:33) Confusion Sulfa Drugs Allergy (Severe, Uncoded 11/26/23 15:33) Rash HPI HPI Comments History of Present Illness Details The patient is a 73 year woman who has been complaining of worsening shortness of breath for the last several years. Apparently back in 2018 the patient has significant shortness of breath and was evaluated in the hospital. She did have a full cardiac evaluation in addition to a CTA. No evidence of any blood clots at that time. The patient did have an echocardiogram demonstrating pulmonary hypertension. Because her ongoing symptoms in the pulmonary hypertension she was referred to [place] for further care. There she had a level 3 cardiopulmonary exercise tolerance test. Her pulmonary pressures increased minimally without any significant evidence of significant pulmonary hypertension. She was not placed on any medicines. She also had a full pulmonary function study done at that time. It appeared that a pulmonary capacity was within normal limits. Only had a mild diffusion impairment. The patient continues to have ongoing symptoms without a clear explanation. She was also started on CPAP in the meantime. Still no improvement. Then in October she was evaluated in [place] which she had a CTA demonstrating evidence of pulmonary emboli. The patient started on Eliquis. Echocardiogram afterwards demonstrated a moderate amount of pulmonary hypertension. She does have a mobile homes repairer in that area. She is tolerating the anticoagulation well. She is still short of breath. During the visit we did go for 6 minutes walk test. We did go up an incline. The patient was visibly dyspneic and also she became hypoxic down to 88%. Not only that when she was hypoxic it was noted that she had more ectopy in some degree of bigeminy. Likely induced by the level of hypoxia. I we did try her on oxygen and 2 L did improve her oxygenation and her energy with activity. So therefore will go ahead and start the patient on oxygen as we try to continue to monitor and evaluate her for her ongoing dyspnea symptoms. In part we have to assess the possibility of underlying chronic thromboembolic disease. We will do further testing for this condition. 03/20/2023 the patient is here for a pulmonary follow-up visit. she continues to have significant dyspnea on exertion even with minimal activity. The oxygen supplementation has been helpful for her per in the meantime regarding her history of blood clots she is using her anticoagulation with good effect and she has good adherence. She did undergo a V/Q scan ruling out the possibility of chronic thromboembolic disease. She also has been using her CPAP regularly. Her machine had been adjusted and the overnight oximetry had improved. Will go ahead and repeat that again just to make sure. In addition to this we did review her cardiopulmonary exercise stop all rinse test which was a level 3 study done in [place]. 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 She also had excessive systemic hypertension during the study although the wedge pressure did not demonstrate any evidence of any left- sided heart failure that may have resulted in the pulmonary hypertension. Today we had her undergo a 6 minutes walk test and she still desaturating some although better than the last time that she was here. Still requires the oxygen specially to exercise. Patient did undergo pulmonary function studies and we personally reviewed. No significant obstructive nor restrictive disease although she has a low normal total lung capacity. The diffuse capacity is mildly decreased. 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 She did have an echocardiogram back in January which also demonstrated that her pulmonary pressures were elevated even at rest though. at this point the patient has pulmonary attention that appears to be symptomatic and would benefit from vasodilator therapy. 04/12/2023 the patient is here for pulmon thomas follow-up visit. Continues to have dyspnea on exertion moderate severity. The oxygen continues to be helpful. She continues on the Lasix 20 mg daily. She is not weighing herself daily at this time. We were trying to get her on sildenafil although her insurance denied it. We did send a prior approval for in order to get her on sildenafil for the pulmonary hypertension but they still denied it. We did review her level 3 CPET that she had about 4 years ago demonstrating exercise-induced pulmonary hypertension. Ultimately after that she ended up with the thromboembolic disease back in October 2022. We did perform a V/Q scan that was reassuring she will have another CTA ordered by her mobile homes repairer to make sure that there is no further evidence of thrombolic disease. The patient had an echocardiogram demonstrating elevated pulmonary pressures in addition to that had a brain natretic peptide was significantly elevated at 1900. Therefore, the appears to be some degree of ardiac strain. I do believe the patient will benefit from vaso-dilatory therapy for her pulmonary hypertension. At this point she will require a referral back to [place] to further address the degree of pulmonary hypertension with a repeat evaluation. Currently she is within the [facility] system therefore will go ahead and refer her to [facility]. In the meantime she will increase her Lasix to 40 mg daily for about 5 days and then she will weigh herself daily and monitor for any weight gain and she will take additional Lasix if her weight increases to a certain degree. I did give her instructions. She continues on the Eliquis and she is adherent to the therapy. She will follow-up with the mobile homes repairer regarding the thromboembolic disease and hyper hypercoagulable state. At this point it is considered to be unprovoked. Not clear if this is related to COVID or not. At this point she will follow up with mobile homes repairer for further evaluation. 06/01/2023 the patient is here for a pulmonary follow-up visit. She is feeling more drowsy during the daytime. She says that she tends to fall asleep during the day. She has decreased energy. She has been also noticing she is been needing additional oxygen. She is wondering if that is related. Explained to her that is unlikely to be her oxygen. Although will go ahead and check a venous gas to make sure that his CO2 is okay. the patient did follow-up with cardiology. Her brain natriuretic peptide was elevated. She is already on Lasix. These recommended talking to pulmonary. The patient understands that this is likely due to significant straining to the right ventricle. She was given a referral to [facility] but there is a long delay. We will call them again to see if they can move up her appointment. In the meantime we will increase her diuretics if her brain atretic peptide continues be elevated and also if she is continues to be symptomatic. she continues use the oxygen with activity. We did go for brief walking oximetry and she actually did fairly well and there was reassuring for her. I encouraged her to stay active. Also did review her CT scan of the chest PE protocol demonstrating interval resolution her blood clots and otherwise stable findings. 07/05/2023 the patient is here for a pulmonary follow-up visit. The patient overall is doing about the same. She is using her portable oxygen concentrator. The therapy has been effective providing her with better portability outside of the home. She continues with her diuresis. The lower extremity edema is overall better. The patient did have the visit with [facility] pulmonary hypertension clinic. They did go ahead and order a level 3 cardiopulmonary exercise study. Although it is not till September. The patient continues to be symptomatic therefore, I am going to speak to her cardiology team to see if we can at least do a right heart catheterization locally in to see if we can get all the answers that we need. If the right heart catheterization is not helpful then she can proceed have her level 3 CPAP. The patient continues to be more symptomatic so I do believe that the her CT hopefully can give us enough information to start her on vasodilators carole therapy if does what she needs. 11/26/2023 the patient is here for a pulmonary follow-up visit. She continues to struggle with her breathing. Although it has improved to some degree. She did follow-up in [place]. She was placed on diltiazem for significant PVCs. It appears to be helping. She also has been using her oxygen with activity, but less. She did undergo a level 3 CPET in [place]. Demonstrated that she does have pulmonary vascular disease with exercise suggesting exercise-induced pulmonary hypertension. The patient did have a repeat 6 minutes walk test today with me. We did go up 4 flights of stairs. The patient did desaturate down to 89% heart rate went up to about 130 beats per minute. Her hypoxia worsened after rested. She did take around 2-3 minutes to recover. Therefore, will continue providing her with the oxygen with activity specially as we psych where his to start pulmonary rehabilitation. The patient was prescribed sildenafil based on her exercise-induced pulmonary hypertension and I did speak to her specialist in [place] and they did agree with the intervention. Will hoping to start on sildenafil soon with the help improvement her vascular resistance with exercise and improve her hypoxia and tachycardia. I did answer all her questions. We did talk about her inhalers. She is going to try to simplify them at this time specially since she has not seen a significant improvement on the improved. [facility] Medical History (Updated 06/01/23 @ 10:58 by Joni Deleon MD) JACKIE (obstructive sleep apnea) Asthma Pulmonary hypertension Pulmonary emboli Dyspnea Social History Patient Tobacco Use Status: Never used Tobacco Review of Systems Const Reports daytime sleepiness and Denies fever(s) Eyes Reports no additional complaints ENT Denies nasal congestion Card Denies chest pain and Reports dyspnea on exertion Resp Reports dyspnea on exertion and Denies wheezing GI Reports no additional complaints Musc Reports no additional complaints Skin/Breast Denies rash Neuro Reports no additional complaints Endo Reports no additional complaints Cameron/Lymph Denies easy bleeding, Denies easy bruising and Denies lymphadenopathy Aller/Immun Denies wheezing Physical Exam Vital Signs: Last Vital Signs Pulse 90 11/26/23 15:32 Pulse Ox 95 11/26/23 15:32 Oxygen Delivery Method Room Air 11/26/23 15:32 BMI result Body Mass Index 29.9 Const General: comfortable HEENT Head: Yes normal to inspection Neck Neck: Yes normal visual inspection Chest Chest palpation & inspection: normal inspection of the chest Resp Effort & Inspection: normal respiratory effort Auscultation: clear to auscultation bilaterally Cardio Palpation: thrill Rate: regular rate Rhythm: regular rhythm Heart sounds: S1 normal heart sound present, S2 normal heart sound present and Abnormal heart opening sounds loud S2 GI Palpation (GI): Soft to palpation Skin General skin exam: no rashes or lesions noted Extrem General: Yes no clubbing, cyanosis or edema Office Procedures 6 Minute Walk Time:: 22:33 SPO2 % at rest: 95 Pulse at rest: 87 SPO2 % during excercise: 89 Pulse during excercise: 130 Distance in yards walked: 300 Joe Score: 8 [id number] - 6 Minute Walk Assessment & Plan Assessment & Plan (1) Dyspnea: Code(s): R06.00 - Dyspnea, unspecified Qualifiers: Dyspnea type: dyspnea on exertion Qualified Code(s): R06.09 - Other forms of dyspnea (2) Pulmonary emboli: Code(s): I26.99 - Other pulmonary embolism without acute cor pulmonale Qualifiers: Acute cor pulmonale presence: unspecified Chronicity: chronic Pulmonary embolism type: other Qualified Code(s): I27.82 - Chronic pulmonary embolism (3) Pulmonary hypertension: Code(s): I27.20 - Pulmonary hypertension, unspecified (4) Asthma: Code(s): J45.909 - Unspecified asthma, uncomplicated Qualifiers: Asthma complication type: uncomplicated Asthma persistence: persistent Asthma severity: moderate Qualified Code(s): J45.40 - Moderate persistent asthma, uncomplicated (5) JACKIE (obstructive sleep apnea): Code(s): G47.33 - Obstructive sleep apnea (adult) (pediatric) Plan Oxygen supplementation 2L/pulse with POC, still desats with activity Continue Eliquis BID continue diuresis as tolerated daily weights continue CPAP therapy continue respiratory therapy with spiriva HARPAL as needed start pulmonary rehab Awaiting [facility] medicine TID F/U 2-3 months Orders: Orders Pulmonary Rehab Today I27.20 - Pulmonary hypertension, unspecified Coding Level of Care Code Est Pt Level 5 (59191) Diagnoses Dyspnea on exertion R06.09 Dyspnea type: dyspnea on exertion Other chronic pulmonary embolism, unspecified whether acute cor pulmonale present I27.82 Acute cor pulmonale presence: unspecified Chronicity: chronic Pulmonary embolism type: other Pulmonary hypertension I27.20 Moderate persistent asthma without complication J45.40 Asthma complication type: uncomplicated Asthma persistence: persistent Asthma severity: moderate JACKIE (obstructive sleep apnea) G47.33 CPT Codes Coding ([id number]) Time Spent (min) 60
[2023-11-26 15:32] VITALS: PULSE 90; O2SAT 95; BMI 29.9
[2023-11-26 22:32] VITALS: PULSE 87; O2SAT 95
== END 2023-11-26 16:11 | disposition home or self-care (01) ==
PROVIDERS: PCP Internal Medicine; Visit Provider Hospitalist
DX: I27.82 Chronic pulmonary embolism (principal); I27.20 Pulmonary hypertension, unspecified; J45.40 Moderate persistent asthma, uncomplicated; G47.33 Obstructive sleep apnea (adult) (pediatric)
CPT/HCPCS: 94618; 99215

== ENCOUNTER → 2023-11-26 15:21 | Outpatient (BNVA) | payer MEDICARE, OTHER, SELFPAY | PROVIDERS: PCP Internal Medicine; Visit Provider Hospitalist | DX: J45.40 Moderate persistent asthma, uncomplicated (principal); G47.33 Obstructive sleep apnea (adult) (pediatric); R06.09 Other forms of dyspnea; I27.82 Chronic pulmonary embolism; I27.20 Pulmonary hypertension, unspecified | CPT/HCPCS: 94618; 99212 ==

== ENCOUNTER 2023-12-11 12:14 | Outpatient (REF) | payer MEDICARE, OTHER, SELFPAY ==
--- NOTE | ~2023-12-11 | XR_ITS ---
EXAMINATION: XR CHEST CLINICAL INFORMATION: Chest pain COMPARISON: Chest 08/17/2023 TECHNIQUE: 2 views of the chest were obtained. FINDINGS: No significant abnormality is noted involving the heart, lungs, mediastinum or soft tissues. No interstitial pulmonary edema or pleural effusion. Interval moderate compression of a midthoracic vertebral body suggestive of osteoporosis. XR/XR chest 2V IMPRESSION: No acute cardiopulmonary disease. Interval moderate compression of a midthoracic vertebral body suggestive of osteoporosis.
[2023-12-11 12:59] LABS: MANUAL DIFF FLAG NO
[2023-12-11 13:45] LABS: Basophils Percent Auto 0.4 % (0-2); Eosinophils Absolute Auto 0.1 X10*3/uL (0.0-0.4); Eosinophils Percent Auto 1.6 % (0-4); Hematocrit 42.2 % (37.0-47.0); Hemoglobin 14.3 g/dl (12.0-16.0); Imm Gran Abs Auto 0.01 X10*3/uL (0.00-0.03); Imm Gran Pct Auto 0.2 % (0.0-0.4); Lymphocytes Percent Auto 36.2 % (20-40); Mean Corpuscular HGB Conc 33.9 g/dl (31.0-35.0); Mean Corpuscular Hemoglobin 31.7 pg (27.0-33.0); Mean Corpuscular Volume 93.6 fL (80.0-98.0); Mean Platelet Volume 11.6 fL (9.4-12.3); Monocytes Absolute Auto 0.4 X10*3/uL (0.1-1.2); Monocytes Percent Auto 7.9 % (2-11); Neutrophils Absolute Auto 2.9 x10*3/uL (2.0-8.3); Neutrophils Percent Auto 53.7 % (45-73); Platelet Count 153 X10*3/uL (160-400); Red Blood Count 4.51 X10*6/uL (4.20-5.50); Red Cell Distribution Width 12.3 % (11.0-16.0); White Blood Count 5.5 X10*3/uL (4.8-10.8)
[2023-12-11 14:08] LABS: Anion Gap 11 (12-20); Blood Urea Nitrogen 18 mg/dL (9-16); Calcium 9.7 mg/dL (8.4-10.2); Carbon Dioxide 33 mmol/L (22-29); Chloride 102 mmol/L (96-108); Estimated Glomerular Filt Rate > 60; Glucose Random 103 mg/dL (60-115); Sodium 142 mmol/L (135-145)
[2023-12-11 14:15] LABS: B Type Natriuretic Peptide 152 pg/mL (<100)
[2023-12-11 14:18] LABS: Troponin-I High Sensitivity < 2.7 ng/L (<3.5-17.0)
== END 2023-12-11 12:15 | disposition home or self-care (01) ==
LOC: HO.LAB 12:14
PROVIDERS: PCP Internal Medicine; Visit Provider Hospitalist
DX: I50.9 Heart failure, unspecified (principal); R06.09 Other forms of dyspnea; I27.20 Pulmonary hypertension, unspecified
CPT/HCPCS: 36415; 71046; 80048; 83880; 84484; 85025; 99212

== ENCOUNTER 2023-12-11 13:14 | Outpatient (AMB) | payer MEDICARE, OTHER, SELFPAY ==
--- NOTE | 2023-12-11 13:18 | A.OFFVIS_ITS ---
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 Apparently back in 2018 the patient has significant shortness of breath and was evaluated in the hospital. She did have a full cardiac evaluation in addition to a CTA. No evidence of any blood clots at that time. The patient did have an echocardiogram demonstrating pulmonary hypertension. Because her ongoing symptoms in the pulmonary hypertension she was referred to [place] for further care. There she had a level 3 cardiopulmonary exercise tolerance test. Her pulmonary pressures increased minimally without any significant evidence of significant pulmonary hypertension. She was not placed on any medicines. She also had a full pulmonary function study done at that time. It appeared that a pulmonary capacity was within normal limits. Only had a mild diffusion impairment. The patient continues to have ongoing symptoms without a clear explanation. She was also started on CPAP in the meantime. Still no improvement. Then in October she was evaluated in [place] which she had a CTA demonstrating evidence of pulmonary emboli. The patient started on Eliquis. Echocardiogram afterwards demonstrated a moderate amount of pulmonary hypertension. She does have a informatics scientist in that area. She is tolerating the anticoagulation well. She is still short of breath. During the visit we did go for 6 minutes walk test. We did go up an incline. The patient was visibly dyspneic and also she became hypoxic down to 88%. Not only that when she was hypoxic it was noted that she had more ectopy in some degree of bigeminy. Likely induced by the level of hypoxia. I we did try her on oxygen and 2 L did improve her oxygenation and her energy with activity. So therefore will go ahead and start the patient on oxygen as we try to continue to monitor and evaluate her for her ongoing dyspnea symptoms. In part we have to assess the possibility of underlying chronic thromboembolic disease. We will do further testing for this condition. 03/20/2023 the patient is here for a pulmonary follow-up visit. she continues to have significant dyspnea on exertion even with minimal activity. The oxygen supplementation has been helpful for her per in the meantime regarding her history of blood clots she is using her anticoagulation with good effect and she has good adherence. She did undergo a V/Q scan ruling out the possibility of chronic thromboembolic disease. She also has been using her CPAP regularly. Her machine had been adjusted and the overnight oximetry had improved. Will go ahead and repeat that again just to make sure. In addition to this we did review her cardiopulmonary exercise stop all rinse test which was a level 3 study done in [place]. 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 She also had excessive systemic hypertension during the study although the wedge pressure did not demonstrate any evidence of any left- sided heart failure that may have resulted in the pulmonary hypertension. Today we had her undergo a 6 minutes walk test and she still desaturating some although better than the last time that she was here. Still requires the oxygen specially to exercise. Patient did undergo pulmonary function studies and we personally reviewed. No significant obstructive nor restrictive disease although she has a low normal total lung capacity. The diffuse capacity is mildly decreased. 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 She did have an echocardiogram back in January which also demonstrated that her pulmonary pressures were elevated even at rest though. at this point the patient has pulmonary attention that appears to be symptomatic and would benefit from vasodilator therapy. 04/12/2023 the patient is here for pulmonary follow-up visit. Continues to have dyspnea on exertion moderate severity. The oxygen continues to be helpful. She continues on the Lasix 20 mg daily. She is not weighing herself daily at this time. We were trying to get her on sildenafil although her insurance denied it. We did send a prior approval for in order to get her on sildenafil for the pulmonary hypertension but they still denied it. We did review her level 3 CPET that she had about 4 years ago demonstrating exercise-induced pulmonary hypertension. Ultimately after that she ended up with the thromboembolic disease back in October 2022. We did perform a V/Q scan that was reassuring she will have another CTA ordered by her informatics scientist to make sure that there is no further evidence of thrombolic disease. The patient had an echocardiogram demonstrating elevated pulmonary pressures in addition to that had a brain natretic peptide was significantly elevated at 1900. Therefore, the appears to be some degree of ardiac strain. I do believe the patient will benefit from vaso-dilatory therapy for her pulmonary hypertension. At this point she will require a referral back to [place] to further address the degree of pulmonary hypertension with a repeat evaluation. Currently she is within the [facility] system therefore will go ahead and refer her to [facility]. In the meantime she will increase her Lasix to 40 mg daily for about 5 days and then she will weigh herself daily and monitor for any weight gain and she will take additional Lasix if her weight increases to a certain degree. I did give her instructions. She continues on the Eliquis and she is adherent to the therapy. She will follow-up with the informatics scientist regarding the thromboembolic disease and hyper hypercoagulable state. At this point it is considered to be unprovoked. Not clear if this is related to COVID or not. At this point she will follow up with informatics scientist for further evaluation. 06/01/2023 the patient is here for a pulmonary follow-up visit. She is feeling more drowsy during the daytime. She says that she tends to fall asleep during the day. She has decreased energy. She has been also noticing she is been needing additional oxygen. She is wondering if that is related. Explained to her that is unlikely to be her oxygen. Although will go ahead and check a venous gas to make sure that his CO2 is okay. the patient did follow-up with cardiology. Her brain natriuretic peptide was elevated. She is already on Lasix. These recommended talking to pulmonary. The patient understands that this is likely due to significant straining to the right ventricle. She was given a referral to [facility] but there is a long delay. We will call them again to see if they can move up her appointment. In the meantime we will increase her diuretics if her brain atretic peptide continues be elevated and also if she is continues to be symptomatic. she continues use the oxygen with activity. We did go for brief walking oximetry and she actually did fairly well and there was reassuring for her. I encouraged her to stay active. Also did review her CT scan of the chest PE protocol demonstrating interval resolution her blood clots and otherwise stable findings. 07/05/2023 the patient is here for a pulmonary follow-up visit. The patient overall is doing about the same. She is using her portable oxygen concentrator. The therapy has been effective providing her with better portability outside of the home. She continues with her diuresis. The lower extremity edema is overall better. The patient did have the visit with [facility] pulmonary hypertension clinic. They did go ahead and order a level 3 cardiopulmonary exercise study. Although it is not till September. The patient continues to be symptomatic therefore, I am going to speak to her cardiology team to see if we can at least do a right heart catheterization locally in to see if we can get all the answers that we need. If the right heart catheterization is not helpful then she can proceed have her level 3 CPAP. The patient continues to be more symptomatic so I do believe that the her CT hopefully can give us enough information to start her on vasodilators carole therapy if does what she needs. 11/26/2023 the patient is here for a pulmonary follow-up visit. She continues to struggle with her breathing. Although it has improved to some degree. She did follow-up in [place]. She was placed on diltiazem for significant PVCs. It appears to be helping. She also has been using her oxygen with activity, but less. She did undergo a level 3 CPET in [place]. Demonstrated that she does have pulmonary vascular disease with exercise suggesting exercise-induced pulmonary hypertension. The patient did have a repeat 6 minutes walk test today with me. We did go up 4 flights of stairs. The patient did desaturate down to 89% heart rate went up to about 130 beats per minute. Her hypoxia worsened afte r rested. She did take around 2-3 minutes to recover. Therefore, will continue providing her with the oxygen with activity specially as we psych where his to start pulmonary rehabilitation. The patient was prescribed sildenafil based on her exercise-induced pulmonary hypertension and I did speak to her specialist in [place] and they did agree with the intervention. Will hoping to start on silde nafil soon with the help improvement her vascular resistance with exercise and improve her hypoxia and tachycardia. I did answer all her questions. We did talk about her inhalers. She is going to try to simplify them at this time specially since she has not seen a significant improvement on the improved. 12/11/2023 the patient is here for a sick visit. The patient ultimately started on sildenafil. She is started slow in a low dose half a tablet initially and then increase to full tablet 3 times a day. She was started to feel ?funny?. She started noticing some leg swelling. Although she did make anything of it. And ultimately she started developing worsening shortness of breath in noticed that she was more hypoxic requiring oxygen more regularly. At that point she did call us and also called [facility]. They stopped the sildenafil the patient has started taking her additional diuretic. She still feels like she has not her baseline she is still using the oxygen more regularly. Therefore we had a firemen. The patient did have a chest x-ray which I personally reviewed without any overt heart failure or any pulmonary edema which is reassuring. Her blood work is also reassuring with normal cardiac enzymes and a normal brain atretic peptide where it was elevated before. In addition to that we did go for brief walking oximetry the patient did desaturate down to 88% on room air. Although she maintain her pulse ox around 91% for most of the ambulation. She did have a portable oxygen concentrator and she had been wearing it. At this point we did review her previous echocardiogram from January of 2023 demonstrating normal EF although it did mentioned about the [id number] mitral regurgitation. From wondering if this could have resulted in worsening heart failure from full the mitral valve. In addition to that we talked about diastolic dysfunction and also veno-occlusive disease that is less likely. For now though she will stop the vasodilators therapy will continue with diuretic therapy as she is responding well. Will go ahead and request a repeat echocardiogram and she should follow-up with cardiology. [facility] Medical History (Updated 12/11/23 @ 19:14 by Joni Deleon MD) CHF (congestive heart failure) JACKIE (obstructive sleep apnea) Asthma Pulmonary hypertension Pulmonary emboli Dyspnea Social History Patient Tobacco Use Status: Never used Tobacco Review of Systems Const Denies fever(s) Eyes Reports no additional complaints ENT Denies nasal congestion Card Denies chest pain, Reports leg edema, Reports dyspnea and Reports dyspnea on exertion Resp Reports dyspnea, Reports dyspnea on exertion and Denies wheezing GI Reports no additional complaints Musc Reports no additional complaints Skin/Breast Denies rash Neuro Reports no additional complaints Endo Reports no additional complaints Cameron/Lymph Denies easy bleeding, Denies easy bruising and Denies lymphadenopathy Aller/Immun Denies wheezing Physical Exam Vital Signs: Last Vital Signs Pulse 76 12/11/23 13:20 Pulse Ox 94 12/11/23 13:20 Oxygen Delivery Method Room Air 12/11/23 13:20 BMI result Body Mass Index 30.4 Const General: comfortable HEENT Head: Yes normal to inspection Neck Neck: Yes normal visual inspection Chest Chest palpation & inspection: normal inspection of the chest Resp Effort & Inspection: normal respiratory effort Auscultation: clear to auscultation bilaterally Cardio Rate: regular rate Rhythm: regular rhythm Heart sounds: S1 normal heart sound present and S2 normal heart sound present GI Palpation (GI): Soft to palpation Skin General skin exam: no rashes or lesions noted Extrem General: Yes no clubbing, cyanosis or edema Results Reviewed Results Reviewed: personally reviewed CXR-no acute disease, labs reviewed Assessment & Plan Assessment & Plan (1) Dyspnea: Code(s): R06.00 - Dyspnea, unspecified Category: Medical Qualifiers: Dyspnea type: dyspnea on exertion Qualified Code(s): R06.09 - Other forms of dyspnea (2) Pulmonary emboli: Code(s): I26.99 - Other pulmonary embolism without acute cor pulmonale Category: Medical Qualifiers: Acute cor pulmonale presence: unspecified Chronicity: chronic Pulmonary embolism type: other Qualified Code(s): I27.82 - Chronic pulmonary embolism (3) Pulmonary hypertension: Code(s): I27.20 - Pulmonary hypertension, unspecified Category: Medical (4) Asthma: Code(s): J45.909 - Unspecified asthma, uncomplicated Category: Medical Qualifiers: Asthma complication type: uncomplicated Asthma persistence: persistent Asthma severity: moderate Qualified Code(s): J45.40 - Moderate persistent asthma, uncomplicated (5) JACKIE (obstructive sleep apnea): Code(s): G47.33 - Obstructive sleep apnea (adult) (pediatric) Category: Medical (6) CHF (congestive heart failure): Code(s): I50.9 - Heart failure, unspecified Category: Medical Qualifiers: Heart failure type: high output Qualified Code(s): I50.83 - High output heart failure Plan Oxygen supplementation 2L/pulse with POC. Will request oxygen adapter from [employer] for her CPAP so she can also use it while sleeping Continue Eliquis BID continue diuresis as tolerated, BNP is better daily weights continue CPAP therapy continue respiratory therapy with spiriva HARPAL as needed start pulmonary rehab Stop vasodilator due to high output HF. I suspect that this was due to diastolic dysfuction or worsening MR. Doubt veno-occlussive disease. I will request a repeat ECHO F/U 1-2 months Orders: Orders CA echo transthoracic complete Today I27.20 - Pulmonary hypertension, unspecified, I50.9 - Heart failure, unspecified Coding Level of Care Code Est Pt Level 5 (13897) Diagnoses Dyspnea on exertion R06.09 Dyspnea type: dyspnea on exertion Other chronic pulmonary embolism, unspecified whether acute cor pulmonale present I27.82 Acute cor pulmonale presence: unspecified Chronicity: chronic Pulmonary embolism type: other Pulmonary hypertension I27.20 Moderate persistent asthma without complication J45.40 Asthma complication type: uncomplicated Asthma persistence: persistent Asthma severity: moderate JACKIE (obstructive sleep apnea) G47.33 High output congestive heart failure I50.83 Heart failure type: high output Time Spent (min) 35
[2023-12-11 13:20] VITALS: PULSE 76; O2SAT 94; BMI 30.4
== END 2023-12-11 13:58 | disposition home or self-care (01) ==
PROVIDERS: PCP Internal Medicine; Visit Provider Hospitalist
DX: I27.82 Chronic pulmonary embolism (principal); J45.40 Moderate persistent asthma, uncomplicated; I27.20 Pulmonary hypertension, unspecified; I50.83 High output heart failure; G47.33 Obstructive sleep apnea (adult) (pediatric)
CPT/HCPCS: 99214

== ENCOUNTER → 2024-01-03 10:48 | Outpatient (REF) | payer MEDICARE, OTHER, SELFPAY ==
--- NOTE | 2024-01-03 10:51 | CA_ITS ---
Transthoracic Echocardiogram Patient (Last, First, Middle): Mary Delgado S Gender: Female Date of : 1950 Age: 73 Procedure Date: 01/03/2024 Procedure Type: Transthoracic Echocardiogram Location: OP Height: 160.02 cm Weight: 79.38 kg BSA: 1.83 m2 Heart Rate: 73 bpm BP: 128 / 85 mmHg Compliance Reviewer: FERNANDO Referring MD: Joni Deleon MD Sourcing Analyst: Sean Pichardo MD Symptoms: I27.20 - Pulmonary hypertension, unspecified Study Quality: Adequate ECG Rhythm: Frequent ventricular premature beats Conclusions: - 1. Normal LV ejection fraction of 60 65% with impaired relaxation filling pattern 2. Moderately dilated left atrium 3. Mild aortic stenosis 4. Moderate mitral annular calcification and mild mitral regurgitation 5. Normal RV systolic pressure 6. No gross pericardial effusion Findings Left Ventricle Normal left ventricular size, thickness, and systolic function. The visually estimated ejection fraction is between 60-65%. Spectral Doppler is indicative of an impaired relaxation filling pattern. E/E prime ratio is between 8 and 15 consistent with indeterminate filling pressures. Right Ventricle Normal right ventricular cavity size and systolic function. Atria The left atrium is moderately dilated. There is no evidence of interatrial shunt. The right atrium is mildly dilated. Aortic Valve There is mild aortic valve stenosis. The peak aortic gradient is 11 mmHg.The mean gradient is 7 mmHg. The aortic valve area is 1.98 cm2. There is no aortic valve regurgitation. Mitral Valve There is mild anterior and moderate posterior mitral leaflet thickening. There is moderate mitral annular calcification. There is mild mitral valve regurgitation. There is no mitral valve stenosis. Pulmonic Valve The pulmonic valve is likely normal. There is trace pulmonic valve regurgitation. Tricuspid Valve Normal tricuspid valve structure. There is mild tricuspid valve regurgitation. The right ventricular systolic pressure is normal. The right ventricular systolic pressure is 19 mmHg. Normal right atrial pressure. There is no evidence of pulmonary hypertension. Great Vessels The pulmonary artery was not well visualized. There is no dilatation of the ascending aorta measuring 3.00 cm. Small plaque is seen in the sino tubular ridge. Venous The inferior vena cava is normal in size and collapses greater than 50% with inspiration. Pericardium/Pleural There is no evidence of pericardial effusion. Prior Study Comparison No prior study available for comparison. Measurements 2D Linear Measurements IVSd: 1.02 0.6-0.9/0.6-1.0 cm LVIDd: 4.56 3.9-5.3/4.2-5.9 cm LVIDd Index: 2.49 2.4-3.2/2.2-3.1 cm/m2 LVIDs: 2.14 2.0-3.6 cm LVPWd: 0.82 0.7-1.1 cm LA Diam: 4.40 2.7-3.8/3.0-4.0 cm LAIDs Index: 2.40 1.5-2.3 cm/m2 LV Mass: 173.63 67-162/88-224 g LV Mass Index: 94.88 43-95/49-115 g/m2 LVOT Diam: 1.80 3.0+(-)1.3 cm 2D Systolic Function EF 4C: 59.40 >55% EF 2C: 69.20 >55% EF BiP: 65.40 >55% Mitral Valve MV Pk E: 0.87 MV PK A: 0.88 MV Decel Time: 258.00 E/A: 1.00 E'Lateral: 7.98 E'Medial: 5.66 E/E' Med: 15.40 E/E' Lat: 11.00 PHT: 76.00 MVA PHT: 2.89 Decel [place]: 3.38 Aortic Valve AoV Pk Gerardo: 1.69 AoV Mn Gerardo: 1.19 AoV VTI: 0.36 AoV Pk Grad: 11.00 Aov Mn Grad: 7.00 MIGUELITO Cont.VTI: 1.98 LVOT LVOT Pk Gearrdo: 1.35 LVOT Mn Gerardo: 0.91 LVOT VTI: 0.28 LVOT Pk Grad: 7.00 LVOT Mn Grad: 4.00 LVOT Diam: 1.80 LVOT Area: 2.54 Diastolic Function MV Pk E: 0.87 MV Pk A: 0.88 E/A: 1.00 E'Medial: 5.66 E/E' Med: 15.40 E' Laterial: 7.98 E/E' Lat: 11.00 Right Ventricle TAPSE (mm): 23.30 TVS' Gerardo: 15.33 Tricuspid Valve TR Pk Gerardo: 2.01 TR Pk Grad: 16.00 RA Press: 3.00 RVSP: 19.00 Great Vessels Aorta Sinus of Valsalva: 3.10 2.0-3.5 cm Ao Asc: 3.00 2.1-3.4 cm Pulmonary Valve PV Pk Gerardo: 0.84 Peak PV Grad: 3.00 Updated in Other Vendor System with Status of Final Sean Pichardo MD electronically signed on 01/03/2024 6:13:32 PM with status of Final
== END ==
LOC: HO.CARD 10:48
PROVIDERS: PCP Internal Medicine; Visit Provider Hospitalist
DX: I27.20 Pulmonary hypertension, unspecified (principal); I50.9 Heart failure, unspecified
CPT/HCPCS: 93306

== ENCOUNTER → 2024-01-03 10:51 | Outpatient (BNV) | payer MEDICARE, OTHER, SELFPAY | PROVIDERS: PCP Internal Medicine; Visit Provider Internal Medicine Cardiovascular Disease | DX: I35.0 Nonrheumatic aortic (valve) stenosis (principal); I34.0 Nonrheumatic mitral (valve) insufficiency; I34.81 Nonrheumatic mitral (valve) annulus calcification; I36.1 Nonrheumatic tricuspid (valve) insufficiency | CPT/HCPCS: 93306 ==

== ENCOUNTER 2024-01-10 10:50 | Outpatient (AMB) | payer MEDICARE, OTHER, SELFPAY ==
[2024-01-10 10:56] VITALS: PULSE 87; O2SAT 93; BMI 29.7
--- NOTE | 2024-01-10 10:56 | A.OFFVIS_ITS ---
Vital Signs 01/10/24 10:56 Height 5 ft 4 in Weight 173 lb BMI 29.7 Pulse 87 Pulse Source Pulse Oximeter Pulse Oximetry (%) 93 Oxygen Delivery Method Room Air Intake Visit Reasons: Pulmonary Embolism Vessel Manager Required: No Allergies hydromorphone [From Dilaudid] Allergy (Severe, Verified 01/10/24 10:58) Confusion Sulfa Drugs Allergy (Severe, Uncoded 01/10/24 10:58) Rash HPI Comments Details: The patient is a 73 year woman who has been complaining of worsening shortness of breath for the last several years. Apparently back in 2018 the patient has significant shortness of breath and was evaluated in the hospital. She did have a full cardiac evaluation in addition to a CTA. No evidence of any blood clots at that time. The patient did have an echocardiogram demonstrating pulmonary hypertension. Because her ongoing symptoms in the pulmonary hypertension she was referred to [place] for further care. There she had a level 3 cardiopulmonary exercise tolerance test. Her pulmonary pressures increased minimally without any significant evidence of significant pulmonary hypertension. She was not placed on any medicines. She also had a full pulmonary function study done at that time. It appeared that a pulmonary capacity was within normal limits. Only had a mild diffusion impairment. The patient continues to have ongoing symptoms without a clear explanation. She was also started on CPAP in the meantime. Still no improvement. Then in October she was evaluated in [place] which she had a CTA demonstrating evidence of pulmonary emboli. The patient started on Eliquis. Echocardiogram afterwards demonstrated a moderate amount of pulmonary hypertension. She does have a dragsaw operator in that area. She is tolerating the anticoagulation well. She is still short of breath. During the visit we did go for 6 minutes walk test. We did go up an incline. The patient was visibly dyspneic and also she became hypoxic down to 88%. Not only that when she was hypoxic it was noted that she had more ectopy in some degree of bigeminy. Likely induced by the level of hypoxia. I we did try her on oxygen and 2 L did improve her oxygenation and her energy with activity. So therefore will go ahead and start the patient on oxygen as we try to continue to monitor and evaluate her for her ongoing dyspnea symptoms. In part we have to assess the possibility of underlying chronic thromboembolic disease. We will do further testing for this condition. 03/20/2023 the patient is here for a pulmonary follow-up visit. she continues to have significant dyspnea on exertion even with minimal activity. The oxygen supplementation has been helpful for her per in the meantime regarding her history of blood clots she is using her anticoagulation with good effect and she has good adherence. She did undergo a V/Q scan ruling out the possibility of chronic thromboembolic disease. She also has been using her CPAP regularly. Her machine had been adjusted and the overnight oximetry had improved. Will go ahead and repeat that again just to make sure. In addition to this we did review her cardiopulmonary exercise stop all rinse test which was a level [address] udy done in [place]. 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 She also had excessive systemic hypertension during the study although the wedge pressure did not demonstrate any evidence of any left- sided heart failure that may have resulted in the pulmonary hypertension. Today we had her undergo a 6 minutes walk test and she still desaturating some although better than the last time that she was here. Still requires the oxygen specially to exercise. Patient did undergo pulmonary function studies and we personally reviewed. No significant obstructive nor restrictive disease although she has a low normal total lung capacity. The diffuse capacity is mildly decreased. 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 She did have an echocardiogram back in January which also demonstrated that her pulmonary pressures were elevated even at rest though. at this point the patient has pulmonary attention that appears to be symptomatic and would benefit from vasodilator therapy. 04/12/2023 the patient is here for pulmonary follow-up visit. Continues to have dyspnea on exertion moderate severity. The oxygen continues to be helpful. She continues on the Lasix 20 mg daily. She is not weighing herself daily at this time. We were trying to get her on sildenafil although her insurance denied it. We did send a prior approval for in order to get her on sildenafil for the pulmonary hypertension but they still denied it. We did review her level 3 CPET that she had about 4 years ago demonstrating exercise-induced pulmonary hypertension. Ultimately after that she ended up with the thromboembolic disease back in October 2022. We did perform a V/Q scan that was reassuring she will have another CTA ordered by her dragsaw operator to make sure that there is no further evidence of thrombolic disease. The patient had an echocardiogram demonstrating elevated pulmonary pressures in addition to that had a brain natretic peptide was significantly elevated at 1900. Therefore, the appears to be some degree of ardiac strain. I do believe the patient will benefit from vaso-dilatory therapy for her pulmonary hypertension. At this point she will require a referral back to [place] to further address the degree of pulmonary hypertension with a repeat evaluation. Currently she is within the [facility] [employer] system therefore will go ahead and refer her to [facility]. In the meantime she will increase her Lasix to 40 mg daily for about 5 days and then she will weigh herself daily and monitor for any weight gain and she will take additional Lasix if her weight increases to a certain degree. I did give her instructions. She continues on the Eliquis and she is adherent to the therapy. She will follow-up with the dragsaw operator regarding the thromboembolic disease and hyper hypercoagulable state. At this point it is considered to be unprovoked. Not clear if this is related to COVID or not. At this point she will follow up with dragsaw operator for further evaluation. 06/01/2023 the patient is here for a pulmonary follow-up visit. She is feeling more drowsy during the daytime. She says that she tends to fall asleep during the day. She has decreased energy. She has been also noticing she is been needing additional oxygen. She is wondering if that is related. Explained to her that is unlikely to be her oxygen. Although will go ahead and check a venous gas to make sure that his CO2 is okay. the patient did follow-up with cardiology. Her brain natriuretic peptide was elevated. She is already on Lasix. These recommended talking to pulmonary. The patient understands that this is likely due to significant straining to the right ventricle. She was given a referral to [facility] hypertension [facility] but there is a long delay. We will call them again to see if they can move up her appointment. In the meantime we will increase her diuretics if her brain atretic peptide continues be elevated and also if she is continues to be symptomatic. she continues use the oxygen with activity. We did go for brief walking oximetry and she actually did fairly well and there was reassuring for her. I encouraged her to stay active. Also did review her CT scan of the chest PE protocol demonstrating interval resolution her blood clots and otherwise stable findings. 07/05/2023 the patient is here for a pulmonary follow-up visit. The patient overall is doing about the same. She is using her portable oxygen concentrator. The therapy has been effective providing her with better portability outside of the home. She continues with her diuresis. The lower extremity edema is overall better. The patient did have the visit with [facility] pulmonary hypertension clinic. They did go ahead and order a level 3 cardiopulmonary exercise study. Although it is not till September. The patient continues to be symptomatic therefore, I am going to speak to her cardiology team to see if we can at least do a right heart catheterization locally in to see if we can get all the answers that we need. If the right heart catheterization is not helpful then she can proceed have her level 3 CPAP. The patient continues to be more symptomatic so I do believe that the her CT hopefully can give us enough information to start her on vasodilators carole therapy if does what she needs. 11/26/2023 the patient is here for a pulmonary follow-up visit. She continues to struggle with her breathing. Although it has improved to some degree. She did follow-up in [place]. She was placed on diltiazem for significant PVCs. It appears to be helping. She also has been using her oxygen with activity, but less. She did undergo a level 3 CPET in [place]. Demonstrated that she does have pulmonary vascular disease with exercise suggesting exercise-induced pulmonary hypertension. The patient did have a repeat 6 minutes walk test today with me. We did go up 4 flights of stairs. The patient did desaturate down to 89% heart rate went up to about 130 beats per minute. Her hypoxia worsened after rested. She did take around 2-3 minutes to recover. Therefore, will continue providing her with the oxygen with activity specially as we psych where his to start pulmonary rehabilitation. The patient was prescribed sildenafil based on her exercise-induced pulmonary hypertension and I did speak to her specialist in [place] and they did agree with the intervention. Will hoping to start on sildenafil soon with the help improvement her vascular resistance with exercise and improve her hypoxia and tachycardia. I did answer all her questions. We did talk about her inhalers. She is going to try to simplify them at this time specially since she has not seen a significant improvement on the improved. 12/11/2023 the patient is here for a sick visit. The patient ultimately started on sildenafil. She is started slow in a low dose half a tablet initially and then increase to full tablet 3 times a day. She was started to feel ?funny?. She started noticing some leg swelling. Although she did make anything of it. And ultimately she started developing worsening shortness of breath in noticed that she was more hypoxic requiring oxygen more regularly. At that point she did call us and also called [facility]. They stopped the sildenafil the patient has started taking her additional diuretic. She still feels like she has not her baseline she is still using the oxygen more regularly. Therefore we had a firemen. The patient did have a chest x-ray which I personally reviewed without any overt heart failure or any pulmonary edema which is reassuring. Her blood work is also reassuring with normal cardiac enzymes and a normal brain atretic peptide where it was elevated before. In addition to that we did go for brief walking oximetry the patient did desaturate down to 88% on room air. Although she maintain her pulse ox around 91% for most of the ambulation. She did have a portable oxygen concentrator and she had been wearing it. At this point we did review her previous echocardiogram from January of 2023 demonstrating normal EF although it did mentioned about the [id number] mitral regurgitation. From wondering if this could have resulted in worsening heart failure from full the mitral valve. In addition to that we talked about diastolic dysfunction and also veno-occlusive disease that is less likely. For now though she will stop the vasodilators therapy will continue with diuretic therapy as she is responding well. Will go ahead and request a repeat echocardiogram and she should follow-up with cardiology. 01/10/2024 the patient is here for a pulmonary follow-up visit. Overall she is feeling better. She did have a follow-up with her electrophysiology physician who will start her on antiarrhythmic agent for persistent abnormal findings on her Holter monitor. I do not have those results. In addition to that she did have an echocardiogram demonstrating some degree of diastolic dysfunction and also mitral valve regurgitation. The patient is wondering why she has difficulty with the medication. We and talked about the possibility of veno- occlusive disease and also talked about the possibility of the heart not been able to tolerate the increase in the blood return after the vasodilators was provided. The patient does have a follow-up with [facility] pulmonary to see if they have any further recommendations regarding the exercise-induced pulmonary hypertension. She continues on the Eliquis for history of pulmonary emboli although her V/Q scan was very reassuring that she does not have any residual clots. Her volume status is better. She continues on diuretics. She is having some issues with leg swelling and pain. Will go ahead and request blood work. The patient follow-up in 4 months. If he has any worsening symptoms she will call for [facility] Medical History (Updated 12/11/23 @ 19:14 by Joni Deleon MD) CHF (congestive heart failure) JACKIE (obstructive sleep apnea) Asthma Pulmonary hypertension Pulmonary emboli Dyspnea Social History Patient Tobacco Use Status: Never used Tobacco Review of Systems Const Denies fever(s) Eyes Reports no additional complaints ENT Denies nasal congestion Card Denies chest pain, Reports leg edema, Reports dyspnea and Reports dyspnea on exertion Resp Reports dyspnea, Reports dyspnea on exertion and Denies wheezing GI Reports no additional complaints Musc Reports no additional complaints Skin/Breast Denies rash Neuro Reports no additional complaints Endo Reports no additional complaints Cameron/Lymph Denies easy bleeding, Denies easy bruising and Denies lymphadenopathy Aller/Immun Denies wheezing Physical Exam Vital Signs: Last Vital Signs Pulse 87 01/10/24 10:56 Pulse Ox 93 01/10/24 10:56 Oxygen Delivery Method Room Air 01/10/24 10:56 BMI result Body Mass Index 29.7 Const General: comfortable HEENT Head: Yes normal to inspection Neck Neck: Yes normal visual inspection Chest Chest palpation & inspection: normal inspection of the chest Resp Effort & Inspection: normal respiratory effort Auscultation: clear to auscultation bilaterally Cardio Rate: regular rate Rhythm: regular rhythm Heart sounds: S1 normal heart sound present and S2 normal heart sound present GI Palpation (GI): Soft to palpation Skin General skin exam: no rashes or lesions noted Extrem General: Yes no clubbing, cyanosis or edema Results Reviewed Results Reviewed: [address] [address] Cardiology Report Signed Patient: Mary Delgado MR#: [id number] : 1950 Acct:[id number] Age/Sex: 73 / F ADM Date: 01/03/24 Loc: HO.CARD Attending Dr: Joni Deleon MD Ordering Physician: Joni Deleon MD Date of Service: 01/03/24 Procedure(s): CA echo transthoracic complete Accession Number(s): cc: Joni Deleon MD~ Transthoracic Echocardiogram Patient (Last, First, Middle): Mary Delgado S Gender: Female Date of : 1950 Age: 73 Procedure Date: 01/03/2024 Procedure Type: Transthoracic Echocardiogram Location: OP Height: 160.02 cm Weight: 79.38 kg BSA: 1.83 m2 Heart Rate: 73 bpm BP: 128 / 85 mmHg Clinical Statistical Programmer: FERNANDO Referring MD: Joni Deleon MD Edge Glue Machine Tender: Sean Pichardo MD Symptoms: I27.20 - Pulmonary hypertension, unspecified Study Quality: Adequate ECG Rhythm: Frequent ventricular premature beats Conclusions: - 1. Normal LV ejection fraction of 60 65% with impaired relaxation filling pattern 2. Moderately dilated left atrium 3. Mild aortic stenosis 4. Moderate mitral annular calcification and mild mitral regurgitation 5. Normal RV systolic pressure 6. No gross pericardial effusion Findings Left Ventricle Normal left ventricular size, thickness, and systolic function. The visually estimated ejection fraction is between 60-65%. Spectral Doppler is indicative of an impaired relaxation filling pattern. E/E prime ratio is between 8 and 15 consistent with indeterminate filling pressures. Right Ventricle Normal right ventricular cavity size and systolic function. Atria The left atrium is moderately dilated. There is no evidence of interatrial shunt. The right atrium is mildly dilated. Aortic Valve There is mild aortic valve stenosis. The peak aortic gradient is 11 mmHg.The mean gradient is 7 mmHg. The aortic valve area is 1.98 cm2. There is no aortic valve regurgitation. Mitral Valve There is mild anterior and moderate posterior mitral leaflet thickening. There is moderate mitral annular calcification. There is mild mitral valve regurgitation. There is no mitral valve stenosis. Pulmonic Valve The pulmonic valve is likely normal. There is trace pulmonic valve regurgitation. Tricuspid Valve Normal tricuspid valve structure. There is mild tricuspid valve regurgitation. The right ventricular systolic pressure is normal. The right ventricular systolic pressure is 19 mmHg. Normal right atrial pressure. There is no evidence of pulmonary hypertension. Great Vessels The pulmonary artery was not well visualized. There is no dilatation of the ascending aorta measuring 3.00 cm. Small plaque is seen in the sino tubular ridge. Venous The inferior vena cava is normal in size and collapses greater than 50% with inspiration. Pericardium/Pleural There is no evidence of pericardial effusion. Prior Study Comparison No prior study available for comparison. Measurements 2D Linear Measurements IVSd: 1.02 0.6-0.9/0.6-1.0 cm LVIDd: 4.56 3.9-5.3/4.2-5.9 cm LVIDd Index: 2.49 2.4-3.2/2.2-3.1 cm/m2 LVIDs: 2.14 2.0-3.6 cm LVPWd: 0.82 0.7-1.1 cm LA Diam: 4.40 2.7-3.8/3.0-4.0 cm LAIDs Index: 2.40 1.5-2.3 cm/m2 LV Mass: 173.63 67-162/88-224 g LV Mass Index: 94.88 43-95/49-115 g/m2 LVOT Diam: 1.80 3.0+(-)1.3 cm 2D Systolic Function EF 4C: 59.40 >55% EF 2C: 69.20 >55% EF BiP: 65.40 >55% Mitral Valve MV Pk E: 0.87 MV PK A: 0.88 MV Decel Time: 258.00 E/A: 1.00 E'Lateral: 7.98 E'Medial: 5.66 E/E' Med: 15.40 E/E' Lat: 11.00 PHT: 76.00 MVA PHT: 2.89 Decel [place]: 3.38 Aortic Valve AoV Pk Gerardo: 1.69 AoV Mn Gerardo: 1.19 AoV VTI: 0.36 AoV Pk Grad: 11.00 Aov Mn Grad: 7.00 MIGUELITO Cont.VTI: 1.98 LVOT LVOT Pk Gerardo: 1.35 LVOT Mn Gerardo: 0.91 LVOT VTI: 0.28 LVOT Pk Grad: 7.00 LVOT Mn Grad: 4.00 LVOT Diam: 1.80 LVOT Area: 2.54 Diastolic Function MV Pk E: 0.87 MV Pk A: 0.88 E/A: 1.00 E'Medial: 5.66 E/E' Med: 15.40 E' Laterial: 7.98 E/E' Lat: 11.00 Right Ventricle TAPSE (mm): 23.30 TVS' Gerardo: 15.33 Tricuspid Valve TR Pk Gerardo: 2.01 TR Pk Grad: 16.00 RA Press: 3.00 RVSP: 19.00 Great Vessels Aorta Sinus of Valsalva: 3.10 2.0-3.5 cm Ao Asc: 3.00 2.1-3.4 cm Pulmonary Valve PV Pk Gerardo: 0.84 Peak PV Grad: 3.00 Updated in Other Vendor System with Status of Final Sean Pichardo MD electronically signed on 01/03/2024 6:13:32 PM with status of Final Dictated By: Sean Pichardo MD Signed By: <Electronically signed by Sean Pichardo MD in OV> 01/03/24 1813 DD/ 1102 TD/TT: Fisher: Assessment & Plan Assessment & Plan (1) Dyspnea: Code(s): R06.00 - Dyspnea, unspecified Category: Medical Qualifiers: Dyspnea type: dyspnea on exertion Qualified Code(s): R06.09 - Other forms of dyspnea (2) Pulmonary emboli: Code(s): I26.99 - Other pulmonary embolism without acute cor pulmonale Category: Medical Qualifiers: Acute cor pulmonale presence: unspecified Chronicity: chronic Pulmonary embolism type: other Qualified Code(s): I27.82 - Chronic pulmonary embolism (3) Pulmonary hypertension: Code(s): I27.20 - Pulmonary hypertension, unspecified Category: Medical (4) Asthma: Code(s): J45.909 - Unspecified asthma, uncomplicated Category: Medical Qualifiers: Asthma complication type: uncomplicated Asthma persistence: persistent Asthma severity: moderate Qualified Code(s): J45.40 - Moderate persistent asthma, uncomplicated (5) JACKIE (obstructive sleep apnea): Code(s): G47.33 - Obstructive sleep apnea (adult) (pediatric) Category: Medical (6) CHF (congestive heart failure): Code(s): I50.9 - Heart failure, unspecified Category: Medical Qualifiers: Heart failure type: high output Qualified Code(s): I50.83 - High output heart failure Plan Oxygen supplementation 2L/pulse with POC. Will request oxygen adapter from [facility] for her CPAP so she can also use it while sleeping Continue Eliquis BID daily weights continue CPAP therapy continue respiratory therapy with spiriva HARPAL as needed pulmonary rehab F/U 4 months Orders: Orders IRON PROFILE Today G47.33 - Obstructive sleep apnea (adult) (pediatric), I50.83 - High output heart failure, R06.09 - Other forms of dyspnea Complete Blood Count Auto Diff Today G47.33 - Obstructive sleep apnea (adult) ( pediatric), I50.83 - High output heart failure, R06.09 - Other forms of dyspnea B Type Natriuretic Peptide Today I50.83 - High output heart failure Ferritin Today G47.33 - Obstructive sleep apnea (adult) (pediatric), I50.83 - High output heart failure, R06.09 - Other forms of dyspnea Basic Metabolic Panel Today G47.33 - Obstructive sleep apnea (adult) (pediatric), I50.83 - High output heart failure, R06.09 - Other forms of dyspnea Coding Level of Care Code Est Pt Level 4 (22296) Diagnoses Dyspnea on exertion R06.09 Dyspnea type: dyspnea on exertion Other chronic pulmonary embolism, unspecified whether acute cor pulmonale present I27.82 Acute cor pulmonale presence: unspecified Chronicity: chronic Pulmonary embolism type: other Pulmonary hypertension I27.20 Moderate persistent asthma without complication J45.40 Asthma complication type: uncomplicated Asthma persistence: persistent Asthma severity: moderate JACKIE (obstructive sleep apnea) G47.33 High output congestive heart failure I50.83 Heart failure type: high output Time Spent (min) 18
== END 2024-01-10 11:27 | disposition home or self-care (01) ==
PROVIDERS: PCP Internal Medicine; Visit Provider Hospitalist
DX: R06.09 Other forms of dyspnea (principal); I27.82 Chronic pulmonary embolism; I27.20 Pulmonary hypertension, unspecified; J45.40 Moderate persistent asthma, uncomplicated; G47.33 Obstructive sleep apnea (adult) (pediatric); I50.83 High output heart failure
CPT/HCPCS: 99214

== ENCOUNTER → 2024-01-10 10:50 | Outpatient (BNVA) | payer MEDICARE, OTHER, SELFPAY | PROVIDERS: PCP Internal Medicine; Visit Provider Hospitalist | DX: I11.0 Hypertensive heart disease with heart failure (principal); I50.83 High output heart failure; R06.09 Other forms of dyspnea; J45.40 Moderate persistent asthma, uncomplicated; I27.82 Chronic pulmonary embolism; G47.33 Obstructive sleep apnea (adult) (pediatric); Z79.01 Long term (current) use of anticoagulants; Z99.89 Dependence on other enabling machines and devices | CPT/HCPCS: 99212 ==

== ENCOUNTER 2024-01-29 13:17 | Outpatient (REF) | payer MEDICARE, OTHER, SELFPAY ==
[2024-01-29 13:36] LABS: MANUAL DIFF FLAG NO
[2024-01-29 14:03] LABS: Basophils Percent Auto 0.6 % (0-2); Eosinophils Absolute Auto 0.1 X10*3/uL (0.0-0.4); Eosinophils Percent Auto 1.2 % (0-4); Hematocrit 39.2 % (37.0-47.0); Hemoglobin 13.1 g/dl (12.0-16.0); Imm Gran Abs Auto 0.02 X10*3/uL (0.00-0.03); Imm Gran Pct Auto 0.4 % (0.0-0.4); Lymphocytes Absolute Auto 1.8 X10*3/uL (1.2-4.9); Lymphocytes Percent Auto 35.3 % (20-40); Mean Corpuscular HGB Conc 33.4 g/dl (31.0-35.0); Mean Corpuscular Hemoglobin 31.7 pg (27.0-33.0); Mean Corpuscular Volume 94.9 fL (80.0-98.0); Mean Platelet Volume 11.5 fL (9.4-12.3); Monocytes Absolute Auto 0.4 X10*3/uL (0.1-1.2); Monocytes Percent Auto 8.1 % (2-11); Neutrophils Absolute Auto 2.7 x10*3/uL (2.0-8.3); Neutrophils Percent Auto 54.4 % (45-73); Platelet Count 149 X10*3/uL (160-400); Red Blood Count 4.13 X10*6/uL (4.20-5.50); Red Cell Distribution Width 12.8 % (11.0-16.0)
[2024-01-29 14:26] LABS: B Type Natriuretic Peptide 105 pg/mL (<100)
[2024-01-29 14:33] LABS: Anion Gap 12 (12-20); Blood Urea Nitrogen 12 mg/dL (9-16); Calcium 9.4 mg/dL (8.4-10.2); Carbon Dioxide 27 mmol/L (22-29); Chloride 105 mmol/L (96-108); Estimated Glomerular Filt Rate > 60; Glucose Random 107 mg/dL (60-115); Iron 108 mcg/dL (30-160); Percent Iron Saturation 43 % (15-50); Potassium 3.7 mmol/L (3.3-5.1); Sodium 140 mmol/L (135-145); Total Iron Binding Capacity 251 mcg/dL (228-428); Unsaturated Iron Binding 143 ug/dL
[2024-01-29 14:47] LABS: Ferritin 67 ng/mL (10-250)
== END 2024-01-29 13:18 | disposition home or self-care (01) ==
LOC: HO.LAB 13:17
PROVIDERS: PCP Internal Medicine; Visit Provider Hospitalist
DX: I50.83 High output heart failure (principal); R06.09 Other forms of dyspnea; G47.33 Obstructive sleep apnea (adult) (pediatric)
CPT/HCPCS: 36415; 80048; 82728; 83540; 83880; 85025

== ENCOUNTER 2024-03-04 13:30 | Outpatient (RCR) | payer MEDICARE, OTHER, SELFPAY | END 2024-05-23 14:41 | disposition home or self-care (01) | LOC: HO.PR 13:30 | PROVIDERS: PCP Internal Medicine; Visit Provider Hospitalist | DX: I27.20 Pulmonary hypertension, unspecified (principal) | CPT/HCPCS: 94618; 99212; G0237; G0239 ==

== ENCOUNTER 2024-04-24 10:50 | Outpatient (AMB) | payer MEDICARE, OTHER, SELFPAY ==
--- NOTE | 2024-04-24 10:55 | A.OFFVIS_ITS ---
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 Apparently back in 2018 the patient has significant shortness of breath and was evaluated in the hospital. She did have a full cardiac evaluation in addition to a CTA. No evidence of any blood clots at that time. The patient did have an echocardiogram demonstrating pulmonary hypertension. Because her ongoing symptoms in the pulmonary hypertension she was referred to [place] for further care. There she had a level 3 cardiopulmonary exercise tolerance test. Her pulmonary pressures increased minimally without any significant evidence of significant pulmonary hypertension. She was not placed on any medicines. She also had a full pulmonary function study done at that time. It appeared that a pulmonary c apacity was within normal limits. Only had a mild diffusion impairment. The patient continues to have ongoing symptoms without a clear explanation. She was also started on CPAP in the meantime. Still no improvement. Then in October she was evaluated in [place] which she had a CTA demonstrating evidence of pulmonary emboli. The patient started on Eliquis. Echocardiogram afterwards demonstrated a moderate amount of pulmonary hypertension. She does have a artificial limb maker in that area. She is tolerating the anticoagulation well. She is still short of breath. During the visit we did go for 6 minutes walk test. We did go up an incline. The patient was visibly dyspneic and also she became hypoxic down to 88%. Not only that when she was hypoxic it was noted that she had more ectopy in some degree of bigeminy. Likely induced by the level of hypoxia. I we did try her on oxygen and 2 L did improve her oxygenation and her energy with activity. So therefore will go ahead and start the patient on oxygen as we try to continue to monitor and evaluate her for her ongoing dyspnea symptoms. In part we have to assess the possibility of underlying chronic thromboembolic disease. We will do further testing for this condition. 03/20/2023 the patient is here for a pulmonary follow-up visit. she continues to have significant dyspnea on exertion even with minimal activity. The oxygen supplementation has been helpful for her per in the meantime regarding her history of blood clots she is using her anticoagulation with good effect and she has good adherence. She did undergo a V/Q scan ruling out the possibility of chronic thromboembolic disease. She also has been using her CPAP regularly. Her machine had been adjusted and the overnight oximetry had improved. Will go ahead and repeat that again just to make sure. In addition to this we did review her cardiopulmonary exercise stop all rinse test which was a level 3 study done in [place]. 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 She also had excessive systemic hypertension during the study although the wedge pressure did not demonstrate any evidence of any left- sided heart failure that may have resulted in the pulmonary hypertension. Today we had her undergo a 6 minutes walk test and she still desaturating some although better than the last time that she was here. Still requires the oxygen specially to exercise. Patient did undergo pulmonary function studies and we personally reviewed. No significant obstructive nor restrictive disease although she has a low normal total lung capacity. The diffuse capacity is mildly decreased. 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 She did have an echocardiogram back in January which also demonstrated that her pulmonary pressures were elevated even at rest though. at this point the patient has pulmonary attention that appears to be symptomatic and would benefit from vasodilator therapy. 04/12/2023 the patient is here for pulmonary follow-up visit. Continues to have dyspnea on exertion moderate severity. The oxygen continues to be helpful. She continues on the Lasix 20 mg daily. She is not weighing herself daily at this time. We were trying to get her on sildenafil although her insurance denied it. We did send a prior approval for in order to get her on sildenafil for the pulmonary hypertension but they still denied it. We did review her level 3 CPET that she had about 4 years ago demonstrating exercise-induced pulmonary hypertension. Ultimately after that she ended up with the thromboembolic disease back in October 2022. We did perform a V/Q scan that was reassuring she will have another CTA ordered by her artificial limb maker to make sure that there is no further evidence of thrombolic disease. The patient had an echocardiogram demonstrating elevated pulmonary pressures in addition to that had a brain natretic peptide was significantly elevated at 1900. Therefore, the appears to be some degree of ardiac strain. I do believe the patient will benefit from vaso-dilatory therapy for her pulmonary hypertension. At this point she will require a referral back to [place] to further address the degree of pulmonary hypertension with a repeat evaluation. Currently she is within the [facility] system therefore will go ahead and refer her to [facility]. In the meantime she will increase her Lasix to 40 mg daily for about 5 days and then she will weigh herself daily and monitor for any weight gain and she will take additional Lasix if her weight increases to a certain degree. I did give her instructions. She continues on the Eliquis and she is adherent to the therapy. She will follow-up with the artificial limb maker r egarding the thromboembolic disease and hyper hypercoagulable state. At this point it is considered to be unprovoked. Not clear if this is related to COVID or not. At this point she will follow up with artificial limb maker for further evaluation. 06/01/2023 the patient is here for a pulmonary follow-up visit. She is feeling more drowsy during the daytime. She says that she tends to fall asleep during the day. She has decreased energy. She has been also noticing she is been needing additional oxygen. She is wondering if that is related. Explained to her that is unlikely to be her oxygen. Although will go ahead and check a venous gas to make sure that his CO2 is okay. the patient did follow-up with cardiology. Her brain natriuretic peptide was elevated. She is already on Lasix. These recommended talking to pulmonary. The patient understands that this is likely due to significant straining to the right ventricle. She was given a referral to [facility] but there is a long delay. We will call them again to see if they can move up her appointment. In the meantime we will increase her diuretics if her brain atretic peptide continues be elevated and also if she is continues to be symptomatic. she continues use the oxygen with activity. We did go for brief walking oximetry and she actually did fairly well and there was reassuring for her. I encouraged her to stay active. Also did review her CT scan of the chest PE protocol demonstrating interval resolution her blood clots and otherwise stable findings. 07/05/2023 the patient is here for a pulmonary follow-up visit. The patient overall is doing about the same. She is using her portable oxygen concentrator. The therapy has been effective providing her with better portability outside of the home. She continues with her diuresis. The lower extremity edema is overall better. The patient did have the visit with [facility] pulmonary hypertension clinic. They did go ahead and order a level 3 cardiopulmonary exercise study. Although it is not till September. The patient continues to be symptomatic therefore, I am going to speak to her cardiology team to see if we can at least do a right heart catheterization locally in to see if we can get all the answers that we need. If the right heart catheterization is not helpful then she can proceed have her level 3 CPAP. The patient continues to be more symptomatic so I do believe that the her CT hopefully can give us enough information to start her on vasodilators carole therapy if does what she needs. 11/26/2023 the patient is here for a pulmonary follow-up visit. She continues to struggle with her breathing. Although it has improved to some degree. She did follow-up in [place]. She was placed on diltiazem for significant PVCs. It appears to be helping. She also has been using her oxygen with activity, but less. She did undergo a level 3 CPET in [place]. Demonstrated that she does have pulmonary vascular disease with exercise suggesting exercise-induced pulmonary hypertension. The patient did have a repeat 6 minutes walk test today with me. We did go up 4 flights of stairs. The patient did desaturate down to 89% heart rate went up to about 130 beats per minute. Her hypoxia worsened after rested. She did take around 2-3 minutes to recover. Therefore, will continue providing her with the oxygen with activity specially as we psych where his to start pulmonary rehabilitation. The patient was prescribed sildenafil based on her exercise-induced pulmonary hypertension and I did speak to her specialist in [place] and they did agree with the intervention. Will hoping to start on sildenafil soon with the help improvement her vascular resistance with exercise and improve her hypoxia and tachycardia. I did answer all her questions. We did talk about her inhalers. She is going to try to simplify them at this time specially since she has not seen a significant improvement on the improved. 12/11/2023 the patient is here for a sick visit. The patient ultimately started on sildenafil. She is started slow in a low dose half a tablet initially and then increase to full tablet 3 times a day. She was started to feel ?funny?. She started noticing some leg swelling. Although she did make anything of it. And ultimately she started developing worsening shortness of breath in noticed that she was more hypoxic requiring oxygen more regularly. At that point she did call us and also called [facility]. They stopped the sildenafil the patient has started taking her additional diuretic. She still feels like she has not her baseline she is still using the oxygen more regularly. Therefore we had a firemen. The patient did have a chest x-ray which I personally reviewed without any overt heart failure or any pulmonary edema which is reassuring. Her blood work is also reassuring with normal cardiac enzymes and a normal brain atretic peptide where it was elevated before. In addition to that we did go for brief walking oximetry the patient did desaturate down to 88% on room air. Although she maintain her pulse ox around 91% for most of the ambulation. She did have a portable oxygen concentrator and she had been wearing it. At this point we did review her previous echocardiogram from January of 2023 demonstrating normal EF although it did mentioned about the [id number] mitral regurgitation. From wondering if this could have resulted in worsening heart failure from full the mitral valve. In addition to that we talked about diastolic dysfunction and also veno-occlusive disease that is less likely. For now though she will stop the vasodilators therapy will continue with diuretic therapy as she is responding well. Will go ahead and request a repeat echocardiogram and she should follow-up with cardiology. 01/10/2024 the patient is here for a pulmonary follow-up visit. Overall she is feeling better. She did have a follow-up with her electrophysiology physician who will start her on antiarrhythmic agent for persistent abnormal findings on her Holter monitor. I do not have those results. In addition to that she did have an echocardiogram demonstrating some degree of diastolic dysfunction and also mitral valve regurgitation. The patient is wondering why she has difficulty with the medication. We and talked about the possibility of veno- occlusive disease and also talked about the possibility of the heart not been able to tolerate the increase in the blood return after the vasodilators was provided. The patient does have a follow-up with [facility] pulmonary to see if they have any further recommendations regarding the exercise-induced pulmonary hypertension. She continues on the Eliquis for history of pulmonary emboli although her V/Q scan was very reassuring that she does not have any residual clots. Her volume status is better. She continues on diuretics. She is having some issues with leg swelling and pain. Will go ahead and request blood work. The patient follow-up in 4 months. If he has any worsening symptoms she will call for 04/24/2024 the patient is here for a pulmonary follow-up visit. The patient has been having some difficulties with her sleep. She is having some insomnia. She is using the trazodone 100 mg at nighttime. In addition to that sometimes she uses a small dose of Ativan. Although she can only get about 3-4 hours asleep. The patient also has gabapentin. She is going to start taking the gabapentin more regularly. She uses her more her pain issues. The patient has a CPAP. She is having some difficulties tolerating the CPAP because of her insomnia. We did download her data. Seems like her AHI is less than 1. her pressure settings are adequate. Her average pressure is 11 cm of water. Will go ahead and decrease her maximum pressure from 16-13 to minimize significant elevations in the pressures. From a respiratory status she is doing better after completing pulmonary rehabilitation. She also continues with diuresis. She does continue to have the oxygen. She did have COVID and she was using the oxygen more regularly then. I am hopeful that when she comes back in 2-3 months we can do 6 minute walk test and see if we can hopefully discontinue the oxygen for her. She continues with her diuretics. Will plan to follow-up 2 months. If any issues arise prior to that she will call for an earlier assessment. [facility] Medical History (Updated 04/24/24 @ 22:25 by Joni Deleon MD) Insomnia CHF (congestive heart failure) JACKIE (obstructive sleep apnea) Asthma Pulmonary hypertension Pulmonary emboli Dyspnea Social History Patient Tobacco Use Status: Never used Tobacco Review of Systems Const Denies fever(s) Eyes Reports no additional complaints ENT Denies nasal congestion Card Denies chest pain and Reports dyspnea on exertion Resp Reports dyspnea on exertion and Denies wheezing GI Reports no additional complaints Musc Reports no additional complaints Skin/Breast Denies rash Neuro Reports no additional complaints Endo Reports no additional complaints Cameron/Lymph Denies easy bleeding, Denies easy bruising and Denies lymphadenopathy Aller/Immun Denies wheezing Physical Exam Vital Signs: Last Vital Signs Pulse 74 04/24/24 10:58 BP 132/70 04/24/24 10:58 Pulse Ox 96 04/24/24 10:58 Oxygen Delivery Method Room Air 04/24/24 10:58 BMI result Body Mass Index 30.3 Const General: comfortable HEENT Head: Yes normal to inspection Neck Neck: Yes normal visual inspection Chest Chest palpation & inspection: normal inspection of the chest Resp Effort & Inspection: normal respiratory effort Auscultation: clear to auscultation bilaterally Cardio Rate: regular rate Rhythm: regular rhythm Heart sounds: S1 normal heart sound present and S2 normal heart sound present GI Palpation (GI): Soft to palpation Skin General skin exam: no rashes or lesions noted Extrem General: Yes no clubbing, cyanosis or edema Assessment & Plan Assessment & Plan (1) Dyspnea: Code(s): R06.00 - Dyspnea, unspecified Category: Medical Qualifiers: Dyspnea type: dyspnea on exertion Qualified Code(s): R06.09 - Other forms of dyspnea (2) Pulmonary emboli: Code(s): I26.99 - Other pulmonary embolism without acute cor pulmonale Category: Medical Qualifiers: Pulmonary embolism type: other Chronicity: chronic Acute cor pulmonale presence: unspecified Qualified Code(s): I27.82 - Chronic pulmonary embolism (3) Pulmonary hypertension: Code(s): I27.20 - Pulmonary hypertension, unspecified Category: Medical (4) Asthma: Code(s): J45.909 - Unspecified asthma, uncomplicated Category: Medical Qualifiers: Asthma severity: moderate Asthma persistence: persistent Asthma complication type: uncomplicated Qualified Code(s): J45.40 - Moderate persistent asthma, uncomplicated (5) JACKIE (obstructive sleep apnea): Code(s): G47.33 - Obstructive sleep apnea (adult) (pediatric) Category: Medical (6) CHF (congestive heart failure): Code(s): I50.9 - Heart failure, unspecified Category: Medical Qualifiers: Heart failure type: high output Qualified Code(s): I50.83 - High output heart failure (7) Insomnia: Code(s): G47.00 - Insomnia, unspecified Category: Medical Qualifiers: Insomnia type: primary Qualified Code(s): F51.01 - Primary insomnia Plan Oxygen supplementation 2L/pulse with POC. Will request oxygen adapter from [facility] for her CPAP so she can also use it while sleeping Continue Eliquis BID daily weights continue CPAP therapy, adjusted 8-13 continue respiratory therapy with spiriva HARPAL as needed pulmonary rehab increase Trazodone 150mg QHS should use the gabapentin at night avoid benzos F/U 2-3 months with 6MWT Medications: New trazodone 50 mg PO BEDTIME PRN 30 tabs 3RF sleep 30 days benzonatate 200 mg PO BID PRN 60 caps 4RF cough 30 days Coding Level of Care Code Est Pt Level 4 (33913) Complex EM visit Add On G2211 Diagnoses Dyspnea on exertion R06.09 Dyspnea type: dyspnea on exertion Other chronic pulmonary embolism, unspecified whether acute cor pulmonale present I27.82 Pulmonary embolism type: other Chronicity: chronic Acute cor pulmonale presence: unspecified Pulmonary hypertension I27.20 Moderate persistent asthma without complication J45.40 Asthma severity: moderate Asthma persistence: persistent Asthma complication type: uncomplicated JACKIE (obstructive sleep apnea) G47.33 High output congestive heart failure I50.83 Heart failure type: high output Primary insomnia F51.01 Insomnia type: primary Time Spent (min) 20
[2024-04-24 10:58] VITALS: BP 132/70; PULSE 74; O2SAT 96; BMI 30.3
== END 2024-04-24 11:35 | disposition home or self-care (01) ==
PROVIDERS: PCP Internal Medicine; Visit Provider Hospitalist
DX: R06.09 Other forms of dyspnea (principal); I27.82 Chronic pulmonary embolism; I27.20 Pulmonary hypertension, unspecified; J45.40 Moderate persistent asthma, uncomplicated; G47.33 Obstructive sleep apnea (adult) (pediatric); I50.83 High output heart failure; F51.01 Primary insomnia
CPT/HCPCS: 99214; G2211

== ENCOUNTER → 2024-04-24 10:50 | Outpatient (BNVA) | payer MEDICARE, OTHER, SELFPAY | PROVIDERS: PCP Internal Medicine; Visit Provider Hospitalist | DX: G47.33 Obstructive sleep apnea (adult) (pediatric) (principal); J45.40 Moderate persistent asthma, uncomplicated; R06.09 Other forms of dyspnea; I27.20 Pulmonary hypertension, unspecified; I27.82 Chronic pulmonary embolism; I50.9 Heart failure, unspecified; Z99.81 Dependence on supplemental oxygen; Z99.89 Dependence on other enabling machines and devices | CPT/HCPCS: 99212 ==

== ENCOUNTER 2024-06-27 10:54 | Outpatient (REF) | payer MEDICARE, OTHER, SELFPAY ==
--- NOTE | 2024-06-27 11:11 | PFT_ITS ---
Flows: FEV1: 91 % of predicted at 1.95 L FVC: 95 % of predicted at 2.63 L FEV1/FVC: 74 % Bronchodilator response: Absent Volumes: Total lung capacity: 83 % of predicted at 4.10 L Residual volume: 68 % of predicted at 1.36 L Slow vital capacity: 94 % of predicted at 2.74 L Expiratory reserve volume: 44 % of predicted at 0.31 L Diffusion capacity: Normal Impression: No obstructive or restrictive ventilatory defect. No bronchodilator response. Essentially normal pulmonary function test. MTDD
== END 2024-06-27 10:55 | disposition home or self-care (01) ==
LOC: HO.RESP 10:54
PROVIDERS: Visit Provider Internal Medicine Pulmonary Disease
DX: R06.02 Shortness of breath (principal)
CPT/HCPCS: 94010; 94640; 94727; 94729

== ENCOUNTER → 2024-06-27 11:11 | Outpatient (BNV) | payer MEDICARE, OTHER, SELFPAY | PROVIDERS: Visit Provider Internal Medicine Pulmonary Disease | DX: R06.02 Shortness of breath (principal) | CPT/HCPCS: 94060; 94727; 94729 ==

== ENCOUNTER 2024-08-06 11:29 | Outpatient (AMB) | payer MEDICARE, OTHER, SELFPAY ==
--- OUTSIDE RECORDS SUMMARY | 2024-08-06 11:31 | XMS_ITS | Continuity of Care Document ---
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 No skin changes or drainage to suggest underlying infection. Suggest use of OTC hydrocortisone cream as needed for the itching. We will extend her follow up to annually and we will plan on audiogram next year. [email or web address] Not available 05/20/2024 09:47:28 Plan of Treatment Reminders Order Date Submit Date Provider Last Modified By Organization Details Last Modified Time Details Appointments Establish ed 15 2024 09:00A M Hearing Test Not available Not available Not available Establish ed 15 2024 09:30A M LEE GENAO PA-C Not available Not available Not available Lab None recorded. Referral None recorded. Procedures None recorded. Surgeries None recorded. Imaging None recorded. Medication Orders None recorded. Patient TargetsNo targets recorded. Patient InstructionsNo instructions recorded. Reason for Referral None Reported. Problems Name Problem SNOMED Code Status Onset Date Resolution Date Notes Provider Name and Address Organization Details Recorded Time Sensorin eural hearing loss of bilatera l ears 718192281 Active 2019 Sensorin eural hearing loss, bilatera l; Note: Date Diagnose d: 0 2:40 PM (H90.3) Not Available [facility] 4 02:45:12 Disorder of right Eustachi an tube 24941964345 33095 Active 2019 Other specifie d disorder s of Eustachi an tube, right ear; Note: Date Diagnose d: 04/20/2020 4:01 PM (H69.81) Not Available [facility] 4 02:45:15 Impacted cerumen in right ear 93363384622 38393 Active 2022 Impacted cerumen, right ear; Note: Date Diagnose d: 3 11:11 AM (H61.21) Not Available [facility] 4 02:45:12 Acute serous otitis media of right ear 67791619524 05369 Completed 201903/21/2024 Acute serous otitis media, right ear; Note: Date Diagnose d: 0 2:34 PM (H65.01) Not Available [facility] 4 02:45:08 Posterio r rhinorrh ea 57703359 Active 2017 Postnasa l drip; Note: Date Diagnose d: 12/25/2017 2:12 PM (R09.82) Not Available [facility] 4 02:45:11 Allergic rhinitis 72982236 Active 2017 Allergic rhinitis , unspecif ied; Note: Date Diagnose d: 12/25/2017 2:12 PM (J30.9) Not Available [facility] 4 02:45:10 Cough 74027208 Active 2018 Cough; Note: Date Diagnose d: 09/24/2018 11:18 AM (R05) Not Available [facility] 4 02:45:09 Cough variant asthma 093831009 Active 2018 Cough variant asthma; Note: Date Diagnose d: 11/19/2018 11:34 AM (J45.991 ) Not Available [facility] 4 02:45:09 Impacted cerumen of bilatera l ears 17417385542 59600 Active 2018 Impacted cerumen, bilatera l; Note: Date Diagnose d: 09/24/2018 11:18 AM (H61.23) Not Available [facility] 4 02:45:10 Headache 21303929 Active 2017 Headache ; Note: Date Diagnose d: 12/25/2017 2:12 PM (R51) Not Available [facility] 4 02:45:09 Otalgia of right ear 3644002229 Active 2018 Otalgia, right ear; Note: Date Diagnose d: 09/24/2018 12:52 PM (H92.01) Not Available [facility] 4 02:45:14 Obstruct demarco sleep apnea syndrome 61858282 Active 2018 Obstruct demarco sleep apnea (adult) (pediatr ic); Note: Date Diagnose d: 9 11:20 AM (G47.33) Not Available [facility] 4 02:45:14 Itching of skin 576385880 Active 2023 LEE GENAO PA-C [address] [place] [address], [facility] [place], [address] , [facility] - [facility] 4 09:46:48 Problem Notes None recorded. Medical Equipment None Reported. Allergies Allergen ID Allergen Name Allergen Category Reaction Reaction Severity Criticality Documentation Date Start Date Code Code System Note Provider Name and Address Organization Details Recorded Time 94373 Substance with sulfonami de structure and antibacte rial mechanism of action (substanc e) medicatio n other Not available Not available 01/01/2024 39452 8003 SNOMED React ion: unkno wn, unspe cifie d;; Not Available [facility] 4 00:49:45 Medications Name Sig Start Date Stop Date Status Note LastModified by Organization Details LastModified Time benzonata te 200 mg capsule TAKE 1 CAPSULE BY MOUTH TWICE A DAY NEEDED COUGH active Not Available Not Available No t Available lisinopri l 20 mg tablet TAKE 1 TABLET BY MOUTH TWICE A DAY active Not Available Not Available No t Available gabapenti n 400 mg capsule TAKE 3 CAPSULES (1,200 MG) BY MOUTH AT BEDTIME. active Not Available Not Available No t Available sertralin e 100 mg tablet TAKE 1 TABLET BY MOUTH EVERY DAY active Not Available Not Available No t Available amlodipin e 2.5 mg tablet 02/02 completed Medicati on ID: [id number] D uration Value: 30 Brand Name: amlodipi ne Send Method: E-Prescr ibed Sub s Allowed: subs OK Speci al Instruct ion: take 1 tablet by mouth once daily Me dication GenericN manuela: amlodipi ne Not Available Not Available Not Available bisoprolo l fumarate 10 mg tablet TAKE 1 TABLET BY MOUTH EVERY DAY active Not Available Not Available No t Available bisoprolo l fumarate 5 mg tablet active Medicati on ID: [id number] B rand Name: bisoprol ol fumarate Send Method: E-Prescr ibed Sub s Allowed: subs OK Medic ationGen ericName : bisoprol ol fumarate Not Available Not Available Not Available alprazola m 0.5 mg tablet TAKE 1/2 TO 1 TABLET DAILY NEEDED FOR ANXIETY active Not Available Not Available No t Available gabapenti n 800 mg tablet 02/02 completed Medicati on ID: [id number] D uration Value: 30 Brand Name: gabapent in Send Method: E-Prescr ibed Sub s Allowed: subs OK Speci al Instruct ion: take 1 tablet by mouth at bedtime Medicati onGeneri cName: gabapent in Not Available Not Available Not Available meclizine 25 mg tablet 11/13 completed Medicati on ID: [id number] B rand Name: meclizin e Send Method: E-Prescr ibed Sub s Allowed: subs OK Medic ationGen ericName : meclizin e Not Available Not Available Not Available mexiletin e 150 mg capsule TAKE 1 CAPSULE BY MOUTH TWICE A DAY active Not Available Not Available No t Available cephalexi n 500 mg capsule TAKE 1 CAPSULE BY MOUTH 4 TIMES DAILY FOR 7 DAYS. active Not Available Not Available No t Available lansopraz ole 30 mg capsule,d elayed release TAKE 1 CAPSULE BY MOUTH TWICE A DAY BEFORE A MEAL active Not Available Not Available No t Available metronida zole 0.75 % topical cream APPLY TO FACE IN THE MORNING active Not Available Not Available No t Available diltiazem CD 120 mg capsule,e xtended release 24 hr TAKE 1 CAPSULE BY MOUTH EVERY DAY active Not Available Not Available No t Available mont[address] st 10 mg tablet 1 tablet by mouth active Not Available Not Available No t Available zolpidem 5 mg tablet 02/02 completed Medicati on ID: [id number] D uration Value: 30 Brand Name: zolpidem Send Method: E-Prescr ibed Sub s Allowed: subs OK Speci al Instruct ion: TAKE 1 TABLET BY MOUTH AT BEDTIME Medicati onGeneri cName: zolpidem Not Available Not Available Not Available furosemid e 20 mg tablet TAKE 2 TABLETS BY MOUTH ONCE DAILY active Not Available Not Available No t Available metoprolo l succinate ER 25 mg tablet,ex tended release 24 hr 2020 active Medicati on ID: [id number] B rand Name: metoprol ol succinat e Send Method: E-Prescr ibed Sub s Allowed: subs OK Medic ationGen ericName : metoprol ol succinat e Not Available Not Available Not Available lotepredn ol etabonate 0.5 % eye drops,[facility] ADMIN[facility] ER 1 DROP INTO BOTH EYES 4 TIMES DAILY FOR 14 DAYS. active Not Available Not Available No t Available zolpidem 10 mg tablet 2020 active Medicati on ID: [id number] B rand Name: zolpidem Send Method: E-Prescr ibed Sub s Allowed: subs OK Medic ationGen ericName : zolpidem Not Available Not Available Not Available fluticaso ne propionat e 50 mcg/actua tion nasal spray,david pension 2020 active Medicati on ID: [id number] B rand Name: fluticas one propiona te Send Method: E-Prescr ibed Sub s Allowed: subs OK Medic ationGen ericName : fluticas one propiona te Not Available Not Available Not Available sertralin e 50 mg tablet TAKE 1 TABLET BY MOUTH EVERY DAY WITH 100MG TABLET active Not Available Not Available No t Available bupropion HCl SR 200 mg tablet,12 hr sustained -release 11/13 completed Medicati on ID: [id number] B rand Name: bupropio n HCl Send Method: E-Prescr ibed Sub s Allowed: subs OK Medic ationGen ericName : bupropio n HCl Not Available Not Available Not Available azithromy evelin 500 mg tablet TAKE 1 TABLET ORALLY DAILY FOR 5 DAYS active Not Available Not Available No t Available azelaic acid 15 % topical gel APPLY A THIN LAYER TO FACE IN THE EVENING active Not Available Not Available No t Available Restasis 0.05 % eye drops in a dropperet te ADMINIST ER 1 DROP INTO BOTH EYES 2 TIMES DAILY. active Not Available Not Available No t Available rosuvasta tin 20 mg tablet TAKE 1 TABLET BY MOUTH EVERY DAY active Not Available Not Available No t Available Flovent HFA 110 mcg/actua tion aerosol inhaler 2020 active Medicati on ID: [id number] B rand Name: Flovent HFA Send Method: E-Prescr ibed Sub s Allowed: subs OK Medic ationGen ericName : Flovent HFA Not Available Not Available Not Available Flovent HFA 220 mcg/actua tion aerosol inhaler 11/13 completed Medicati on ID: [id number] B rand Name: Flovent HFA Send Method: E-Prescr ibed Sub s Allowed: subs OK Medic ationGen ericName : Flovent HFA Not Available Not Available Not Available levalbute rol HFA 45 mcg/actua tion aerosol inhaler INHALE 2 PUFF BY MOUTH EVERY 6 HOURS NEEDED FOR SHORTNES S OF BREATH OR WHEEZING FOR 30 DAYS active Not Available Not Available No t Available sildenafi l (pulmonar y hypertens ion) 20 mg tablet active Not Available Not Available No t Available Prolia 60 mg/mL subcutane ous syringe active Not Available Not Available Not Available Eliquis 5 mg tablet TAKE 1 TABLET BY MOUTH TWICE A DAY active Not Available Not Available No t Available Eliquis 2.5 mg tablet TAKE 1 TABLET BY MOUTH 2 TIMES DAILY active Not Available Not Available No t Available Spiriva Respimat 2.5 mcg/actua tion solution for inhalatio n INHALE 2 PUFFS IN THE MORNING active Not Available Not Available No t Available Eliquis DVT-PE Treatment 30-Day Starter 5 mg (74 tablets) in dose pack active Medicati on ID: [id number] B rand Name: Eliquis DVT-PE Treat 30D Start Se nd Method: E-Prescr ibed Sub s Allowed: subs OK Medic ationGen ericName : Eliquis DVT-PE Treat 30D Start Not Available Not Available Not Available Plenvu 140 gram-9 gram-5.2 gram powder packs TAKE DIRECTED active Not Available Not Available No t Available Vitals Date Recorded Body height Body mass index (BMI) Body weight Provider Name and Address Organization Details Last Updated DateTime 05/20/2024 162.56 cm 30 kg/m2 52694.66 g Ruperto Hull [place] - [facility] 05/20/2024 09:37:03 Social History None recorded. Functional Status None recorded. Mental Status None recorded. Family History Nothing Reported. Medical History No medical history recorded. Gynecological HistoryNo gynecological history recorded. Obstetrics History GPAL:G 0 P 0 0 0 0 Past Encounters Encounter ID Performer Location Encounter Start Date Encounter Closed Date Diagnosis/Indication Diagnosis SNOMED-CT Code Diagnosis ICD10 Code [id number] HAYDEN IRBY MD [facility] [address] [place] [address] 05/20/2024 09:25:09 05/20/2024 09:48:11 Itching of skin 938067399 L29.9 Health Concerns Section Related Observation LastModified by Organization Detai ls LastModified Time None Recorded Concern Status LastModified by Organization Details LastModified Time None Recorded Payers Encounter Date Sequence Insurance Name Policy Number Policy Adan Covered Member ID Adan Member ID Guarantor Name 05/20/2024 1 [place] [employer] Mary Delgado [id number] Mary Delgado 05/20/2024 2 [facility] INDEMNITY PLAN - [employer] [id number] Mary Delgado [id number] Mary Delgado Notes Date Note Type Note Provider Name and Address Organization Details Recorded Time 05/20/2024 text/html 74 year old female presents today for an ear cleaning.No specific concerns today. She does have some itching at the ear canal opening. No drainage or pain. HAYDEN BEARDEN MD [address] [place] [address], [phone], [place] - [facility] 05/20/2024 10:12:08 OBGyn Episode No OBEpisode recorded.
--- OUTSIDE RECORDS SUMMARY | 2024-08-06 11:31 | XMS_ITS | Data Portability ---
Author Organization [place] - [facility], Allergy Address [address] [address] Care Team Providers Care Assistant Professor Nurse Education Name Role Phone CARLOS CHILDERS Primary Care Provider [phone] Assessment Encounter Date Assessment Date Assessment LastModified [...] eural hearing loss of bilatera l ears 501884312 Active 2019 Sensorin eural hearing loss, bilatera l; Note: Date Diagnose d: 0 2:40 PM (H90.3) Not Available [facility] 4 02:45:12 Disorder of right Eustachi an tube 06744640138 92265 Active 2019 Other specifie d disorder s of Eustachi an tube, right ear; Note: Date Diagnose d: 04/20/2020 4:01 PM (H69.81) Not Available [facility] 4 02:45:15 Impacted cerumen in right ear 88777119227 41351 Active 2022 Impacted cerumen, right ear; Note: Date Diagnose d: 3 11:11 AM (H61.21) Not Available [facility] 4 02:45:12 Acute serous otitis media of right ear 88648283311 60302 Completed 201903/21/2024 Acute serous otitis media, right ear; Note: Date Diagnose d: 0 2:34 PM (H65.01) Not Available [facility] 4 02:45:08 Posterio r rhinorrh ea 02274331 Active 2017 Postnasa l drip; Note: Date Diagnose d: 12/25/2017 2:12 PM (R09.82) Not Available [facility] 4 02:45:11 Allergic rhinitis 61368378 Active 2017 Allergic rhinitis , unspecif ied; Note: Date Diagnose d: 12/25/2017 2:12 PM (J30.9) Not Available [facility] 4 02:45:10 Cough 96611044 Active 2018 Cough; Note: Date Diagnose d: 09/24/2018 11:18 AM (R05) Not Available [facility] 4 02:45:09 Cough variant asthma 627759050 Active 2018 Cough variant asthma; Note: Date Diagnose d: 11/19/2018 11:34 AM (J45.991 ) Not Available [facility] 4 02:45:09 Impacted cerumen of bilatera l ears 52943117614 67392 Active 2018 Impacted cerumen, bilatera l; Note: Date Diagnose d: 09/24/2018 11:18 AM (H61.23) Not Available [facility] 4 02:45:10 Headache 05022762 Active 2017 Headache ; Note: Date Diagnose d: 12/25/2017 2:12 PM (R51) Not Available [facility] 4 02:45:09 Otalgia of right ear 9609430866 Active 2018 Otalgia, right ear; Note: Date Diagnose d: 09/24/2018 12:52 PM (H92.01) Not Available [facility] 4 02:45:14 Obstruct demarco sleep apnea syndrome 13880077 Active 2018 Obstruct demarco sleep apnea (adult) (pediatr ic); Note: Date Diagnose d: 9 11:20 AM (G47.33) Not Available [facility] 4 02:45:14 Itching of skin 341436263 Active 2023 LEE GENAO PA-C [address] [place] [address],[facility] [address], [place], [address] , [facility] - [facility] 4 09:46:48 Problem Notes None recorded. Medical Equipment None Reported. Allergies Allergen ID Allergen Name Allergen Category Reaction Reaction Severity Criticality Documentation Date Start Date Code Code System Note Provider Name and Address Organization Details Recorded Time 84549 Substance with sulfonami de structure and antibacte rial mechanism of action (substanc e) medicatio n other Not available Not available 01/01/2024 33554 8003 SNOMED React ion: unkno wn, unspe cifie d;; Not Available [facility] 4 00:49:45 Medications Name Sig Start [...] mg tablet 02/02 completed Medicati on ID: [id number] D uration Value: 30 Brand Name: amlodipi [...] 5 mg tablet active Medicati on ID: [id number] B rand Name: bisoprol ol fumarate Send Method: E-Prescr ibed Sub s Allowed: subs OK Medic ationGen ericName : bisoprol ol fumarate Not Available Not Available Not Available alprazola m 0.5 mg tablet TAKE 1/2 TO 1 TABLET DAILY NEEDED FOR ANXIETY active Not Available Not Available No t Available gabapenti n 800 mg tablet 02/02 completed Medicati on ID: [id number] D uration Value: 30 Brand Name: gabapent in Send Method: E-Prescr ibed Sub s Allowed: subs OK Speci al Instruct ion: take 1 tablet by mouth at bedtime Medicati onGeneri cName: gabapent in Not Available Not Available Not Available meclizine 25 mg tablet 11/13 completed Medicati on ID: [id number] B rand Name: meclizin e Send Method: [...] mg tablet 02/02 completed Medicati on ID: [id number] D uration Value: 30 Brand Name: zolpidem [...] 24 hr 2020 active Medicati on ID: [id number] B rand Name: metoprol ol succinat e Send Method: E-Prescr ibed Sub s Allowed: subs OK Medic ationGen ericName : metoprol ol succinat e Not Available Not Available Not Available lotepredn ol etabonate 0.5 % eye drops,david penon ADMINIST ER 1 DROP INTO BOTH EYES 4 TIMES DAILY FOR 14 DAYS. active Not Available Not Available No t Available zolpidem 10 mg tablet 2020 active Medicati on ID: [id number] B rand Name: zolpidem Send Method: E-Prescr ibed Sub s Allowed: subs OK Medic ationGen ericName : zolpidem Not Available Not Available Not Available fluticaso ne propionat e 50 mcg/actua tion nasal spray,david pension 2020 active Medicati on ID: [id number] B rand Name: fluticas one propiona te [...] sustained -release 11/13 completed Medicati on ID: [id number] B rand Name: bupropio n HCl Send [...] aerosol inhaler 2020 active Medicati on ID: [id number] B rand Name: Flovent HFA Send Method: E-Prescr ibed Sub s Allowed: subs OK Medic ationGen ericName : Flovent HFA Not Available Not Available Not Available Flovent HFA 220 mcg/actua tion aerosol inhaler 11/13 completed Medicati on ID: [id number] B rand Name: Flovent HFA Send Method: [...] in dose pack active Medicati on ID: [id number] B rand Name: Eliquis DVT-PE Treat 30D [...] Updated DateTime 05/20/2024 162.56 cm 30 kg/m2 32326.66 g Ruperto Della [place] - [facility] 05/20/2024 09:37:03 Social History None recorded. Functional Status None recorded. Mental Status None recorded. Family History Nothing Reported. Medical History No medical history recorded. Gynecological HistoryNo gynecological history recorded. Obstetrics History GPAL:G 0 P 0 0 0 0 Past Encounters Encounter ID Performer Location Encounter Start Date Encounter Closed Date Diagnosis/Indication Diagnosis SNOMED-CT Code Diagnosis ICD10 Code [id number] HAYDEN IRBY MD [facility] on [address] [place] [address] 05/20/2024 09:25:09 05/20/2024 09:48:11 Itching of skin 979018681 L29.9 Health Concerns Section Related Observation LastModified by Organization Detai ls LastModified Time None Recorded Concern Status LastModified by Organization Details LastModified Time None Recorded Advance Directives Directive None Recorded Payers Encounter Date Sequence Insurance Name Policy Number Policy Adan Covered Member ID Adan Member ID Guarantor Name 05/20/2024 1 [place] [employer] Mary Delgado [id number] Mary Delgado 05/20/2024 2 [facility] INDEMNITY PLAN - [facility] [id number] Mary Delgado [id number] Mary Delgado Notes Date Note Type Note Provider Name and Address Organization Details Recorded Time 05/20/2024 text/html 74 year old female presents today for an ear cleaning.No specific concerns today. She does have some itching at the ear canal opening. No drainage or pain. HAYDEN BEARDEN MD [address] [place] [address], [phone], [place] - [facility] 05/20/2024 10:12:08 OBGyn Episode No OBEpisode recorded.
--- NOTE | 2024-08-06 11:33 | MHC.OFFVIS ---
Vital Signs 08/06/24 11:34 Weight 180 lb 12.465 oz BP 150/90 H Blood Pressure Location Rt brachial Position Sitting Pulse 83 Pulse Source Pulse Oximeter Pulse Oximetry (%) 92 Oxygen Delivery Method Room Air Intake Visit Reasons: Pulmonary embolism Allergies hydromorphone [From Dilaudid] Allergy (Severe, Verified 08/06/24 11:39) Confusion Sulfa Drugs Allergy (Severe, Uncoded 08/06/24 11:39) Rash Medication List - Last Reconciled 08/06/24 by Debbie Villeda LPN alprazolam 0.5 mg PO BID PRN apixaban (Eliquis) 5 mg PO BID azelaic acid 15% 1 appl topical BID benzonatate 200 mg PO BID PRN 30 days CPAP (CPAP Machine/Device) As directed cyclosporine 0.05% (Restasis) drps ophthalmic (eye) ONCE PRN diltiazem HCl CD mg PO ONCE fluticasone propionate 110 mcg/actuation (Flovent HFA) 2 puffs inhalation BID 30 days fluticasone propionate 50 mcg/actuation 1 spray intranasal BID furosemide 40 mg (2 x 20 mg) PO DAILY 30 days furosemide (Lasix) 20 mg PO DAILY PRN 14 days gabapentin mg PO lansoprazole 30 mg PO DAILY levalbuterol HCl mg inhalation levalbuterol tartrate 45 mcg/actuation 2 inhalations inhalation Q6H PRN 30 days lisinopril 20 mg PO BID loteprednol etabonate 0.5% drps ophthalmic (eye) mexiletine 300 mg PO Q8H nebulizers As directed Oxygen Home Use As directed rosuvastatin 20 mg PO DAILY sertraline 100 mg PO DAILY sertraline 50 mg PO DAILY sumatriptan succinate 100 mg PO DAILY PRN tiotropium bromide 2.5 mcg/actuation (Spiriva Respimat) 2 puffs inhalation QAM trazodone 50 mg PO BEDTIME PRN 30 days HPI Comments Details: The patient is a 74 year woman who has been complaining of worsening shortness of breath for the last several years. Apparently back in 2019 the patient has significant shortness of breath and was evaluated in the hospital. She did have a full cardiac evaluation in addition to a CTA. No evidence of any blood clots at that time. The patient did have an echocardiogram demonstrating pulmonary hypertension. Because her ongoing symptoms in the pulmonary hypertension she was referred to [place] for further care. There she had a level 3 cardiopulmonary exercise tolerance test. Her pulmonary pressures increased minimally without any significant evidence of significant pulmonary hypertension. She was not placed on any medicines. She also had a full pulmonary function study done at that time. It appeared that a pulmonary capacity was within normal limits. Only had a mild diffusion impairment. The patient continues to have ongoing symptoms without a clear explanation. She was also started on CPAP in the meantime. Still no improvement. Then in October she was evaluated in [place] which she had a CTA demonstrating evidence of pulmonary emboli. The patient started on Eliquis. Echocardiogram afterwards demonstrated a moderate amount of pulmonary hypertension. She does have a processor helper in that area. She is tolerating the anticoagulation well. She is still short of breath. During the visit we did go for 6 minutes walk test. We did go up an incline. The patient was visibly dyspneic and also she became hypoxic down to 88%. Not only that when she was hypoxic it was noted that she had more ectopy in some degree of bigeminy. Likely induced by the level of hypoxia. I we did try her on oxygen and 2 L did improve her oxygenation and her energy with activity. So therefore will go ahead and start the patient on oxygen as we try to continue to monitor and evaluate her for her ongoing dyspnea symptoms. In part we have to assess the possibility of underlying chronic thromboembolic disease. We will do further testing for this condition. 03/20/2023 the patient is here for a pulmonary follow-up visit. she continues to have significant dyspnea on exertion even with minimal activity. The oxygen supplementation has been helpful for her per in the meantime regarding her history of blood clots she is using her anticoagulation with good effect and she has good adherence. She did undergo a V/Q scan ruling out the possibility of chronic thromboembolic disease. She also has been using her CPAP regularly. Her machine had been adjusted and the overnight oximetry had improved. Will go ahead and repeat that again just to make sure. In addition to this we did review her cardiopulmonary exercise stop all rinse test which was a level 3 study done in [place]. 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 She also had excessive systemic hypertension during the study although the wedge pressure did not demonstrate any evidence of any left-sided heart failure that may have resulted in the pulmonary hypertension. Today we had her undergo a 6 minutes walk test and she still desaturating some although better than the last time that she was here. Still requires the oxygen specially to exercise. Patient did undergo pulmonary function studies and we personally reviewed. No significant obstructive nor restrictive disease although she has a low normal total lung capacity. The diffuse capacity is mildly decreased. 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 She did have an echocardiogram back in January which also demonstrated that her pulmonary pressures were elevated even at rest though. at this point the patient has pulmonary attention that appears to be symptomatic and would benefit from vasodilator therapy. 04/12/2023 the patient is here for pulmonary follow-up visit. Continues to have dyspnea on exertion moderate severity. The oxygen continues to be helpful. She continues on the Lasix 20 mg daily. She is not weighing herself daily at this time. We were trying to get her on sildenafil although her insurance denied it. We did send a prior approval for in order to get her on sildenafil for the pulmonary hypertension but they still denied it. We did review her level 3 CPET that she had about 4 years ago demonstrating exercise-induced pulmonary hypertension. Ultimately after that she ended up with the thromboembolic disease back in October 2022. We did perform a V/Q scan that was reassuring she will have another CTA ordered by her processor helper to make sure that there is no further evidence of thrombolic disease. The patient had an echocardiogram demonstrating elevated pulmonary pressures in addition to that had a brain natretic peptide was significantly elevated at 1900. Therefore, the appears to be some degree of ardiac strain. I do believe the patient will benefit from vaso-dilatory therapy for her pulmonary hypertension. At this point she will require a referral back to [place] to further address the degree of pulmonary hypertension with a repeat evaluation. Currently she is within the [facility] system therefore will go ahead and refer her to [facility]. In the meantime she will increase her Lasix to 40 mg daily for about 5 days and then she will weigh herself daily and monitor for any weight gain and she will take additional Lasix if her weight increases to a certain degree. I did give her instructions. She continues on the Eliquis and she is adherent to the therapy. She will follow-up with the processor helper regarding the thromboembolic disease and hyper hypercoagulable state. At this point it is considered to be unprovoked. Not clear if this is related to COVID or not. At this point she will follow up with processor helper for further evaluation. 06/01/2023 the patient is here for a pulmonary follow-up visit. She is feeling more drowsy during the daytime. She says that she tends to fall asleep during the day. She has decreased energy. She has been also noticing she is been needing additional oxygen. She is wondering if that is related. Explained to her that is unlikely to be her oxygen. Although will go ahead and check a venous gas to make sure that his CO2 is okay. the patient did follow-up with cardiology. Her brain natriuretic peptide was elevated. She is already on Lasix. These recommended talking to pulmonary. The patient understands that this is likely due to significant straining to the right ventricle. She was given a referral to [facility] but there is a long delay. We will call them again to see if they can move up her appointment. In the meantime we will increase her diuretics if her brain atretic peptide continues be elevated and also if she is continues to be symptomatic. she continues use the oxygen with activity. We did go for brief walking oximetry and she actually did fairly well and there was reassuring for her. I encouraged her to stay active. Also did review her CT scan of the chest PE protocol demonstrating interval resolution her blood clots and otherwise stable findings. 07/05/2023 the patient is here for a pulmonary follow-up visit. The patient overall is doing about the same. She is using her portable oxygen concentrator. The therapy has been effective providing her with better portability outside of the home. She continues with her diuresis. The lower extremity edema is overall better. The patient did have the visit with [facility] pulmonary hypertension clinic. They did go ahead and order a level 3 cardiopulmonary exercise study. Although it is not till September. The patient continues to be symptomatic therefore, I am going to speak to her cardiology team to see if we can at least do a right heart catheterization locally in to see if we can get all the answers that we need. If the right heart catheterization is not helpful then she can proceed have her level 3 CPAP. The patient continues to be more symptomatic so I do believe that the her CT hopefully can give us enough information to start her on vasodilators carole therapy if does what she needs. 11/26/2023 the patient is here for a pulmonary follow-up visit. She continues to struggle with her breathing. Although it has improved to some degree. She did follow-up in [place]. She was placed on diltiazem for significant PVCs. It appears to be helping. She also has been using her oxygen with activity, but less. She did undergo a level 3 CPET in [place]. Demonstrated that she does have pulmonary vascular disease with exercise suggesting exercise-induced pulmonary hypertension. The patient did have a repeat 6 minutes walk test today with me. We did go up 4 flights of stairs. The patient did desaturate down to 89% heart rate went up to about 130 beats per minute. Her hypoxia worsened after rested. She did take around 2-3 minutes to recover. Therefore, will continue providing her with the oxygen with activity specially as we psych where his to start pulmonary rehabilitation. The patient was prescribed sildenafil based on her exercise-induced pulmonary hypertension and I did speak to her specialist in [place] and they did agree with the intervention. Will hoping to start on sildenafil soon with the help improvement her vascular resistance with exercise and improve her hypoxia and tachycardia. I did answer all her questions. We did talk about her inhalers. She is going to try to simplify them at this time specially since she has not seen a significant improvement on the improved. 12/11/2023 the patient is here for a sick visit. The patient ultimately started on sildenafil. She is started slow in a low dose half a tablet initially and then increase to full tablet 3 times a day. She was started to feel ?funny?. She started noticing some leg swelling. Although she did make anything of it. And ultimately she started developing worsening shortness of breath in noticed that she was more hypoxic requiring oxygen more regularly. At that point she did call us and also called [facility]. They stopped the sildenafil the patient has started taking her additional diuretic. She still feels like she has not her baseline she is still using the oxygen more regularly. Therefore we had a firemen. The patient did have a chest x-ray which I personally reviewed without any overt heart failure or any pulmonary edema which is reassuring. Her blood work is also reassuring with normal cardiac enzymes and a normal brain atretic peptide where it was elevated before. In addition to that we did go for brief walking oximetry the patient did desaturate down to 88% on room air. Although she maintain her pulse ox around 91% for most of the ambulation. She did have a portable oxygen concentrator and she had been wearing it. At this point we did review her previous echocardiogram from January of 2023 demonstrating normal EF although it did mentioned about the [id number]-be-rwdibcey mitral regurgitation. From wondering if this could have resulted in worsening heart failure from full the mitral valve. In addition to that we talked about diastolic dysfunction and also veno-occlusive disease that is less likely. For now though she will stop the vasodilators therapy will continue with diuretic therapy as she is responding well. Will go ahead and request a repeat echocardiogram and she should follow-up with cardiology. 01/10/2024 the patient is here for a pulmonary follow-up visit. Overall she is feeling better. She did have a follow-up with her electrophysiology physician who will start her on antiarrhythmic agent for persistent abnormal findings on her Holter monitor. I do not have those results. In addition to that she did have an echocardiogram demonstrating some degree of diastolic dysfunction and also mitral valve regurgitation. The patient is wondering why she has difficulty with the medication. We and talked about the possibility of veno-occlusive disease and also talked about the possibility of the heart not been able to tolerate the increase in the blood return after the vasodilators was provided. The patient does have a follow-up with [facility] pulmonary to see if they have any further recommendations regarding the exercise-induced pulmonary hypertension. She continues on the Eliquis for history of pulmonary emboli although her V/Q scan was very reassuring that she does not have any residual clots. Her volume status is better. She continues on diuretics. She is having some issues with leg swelling and pain. Will go ahead and request blood work. The patient follow-up in 4 months. If he has any worsening symptoms she will call for 04/24/2024 the patient is here for a pulmonary follow-up visit. The patient has been having some difficulties with her sleep. She is having some insomnia. She is using the trazodone 100 mg at nighttime. In addition to that sometimes she uses a small dose of Ativan. Although she can only get about 3-4 hours asleep. The patient also has gabapentin. She is going to start taking the gabapentin more regularly. She uses her more her pain issues. The patient has a CPAP. She is having some difficulties tolerating the CPAP because of her insomnia. We did download her data. Seems like her AHI is less than 1. her pressure settings are adequate. Her average pressure is 11 cm of water. Will go ahead and decrease her maximum pressure from 16-13 to minimize significant elevations in the pressures. From a respiratory status she is doing better after completing pulmonary rehabilitation. She also continues with diuresis. She does continue to have the oxygen. She did have COVID and she was using the oxygen more regularly then. I am hopeful that when she comes back in 2-3 months we can do 6 minute walk test and see if we can hopefully discontinue the oxygen for her. She continues with her diuretics. Will plan to follow-up 2 months. If any issues arise prior to that she will call for an earlier assessment. 08/06/2024 the patient is here for a pulmonary follow-up visit. Overall the patient feels like she is getting worse. Feels like she is having more shortness of breath. She is having to use the oxygen more. In the meantime she has been using her CPAP. The CPAP therapy has been affecting beneficial and she does use it for more than 4 hours a night. We had done an overnight oximetry before she did not need oxygen but will go ahead and repeated again to make sure specially with the issue with the pulmonary hypertension. At this point it appears that her pulmonary hypertension is more related to her stiffen left ventricle and diastolic dysfunction specially since she could not tolerate the vasodilators therapy therapy resulting in flash edema. Veno-occlusive diseases less likely specially with her very severe dilated left atrium. The patient is currently on diuretics. She was placed on torsemide for moment but she develops significant reactions to that. She is going to be following up with the congestive Heart failure Clinic at [facility] which is believe is very good option for her. I did ask her to discuss Jardiance with the team there. In the meantime she is going to continue with the oxygen with activity. She was going to have the overnight oximetry test again. The patient will undergo blood work a couple weeks and we can check her electrolytes make sure that she is tolerating the diuresis. She is also having some chest congestion some sinus congestion. Will go ahead and start her on nasal prior and also started on Singulair she had before she seemed to tolerate okay. [facility] Medical History (Updated 08/06/24 @ 22:30 by Joni Deleon MD) Insomnia CHF (congestive heart failure) JACKIE (obstructive sleep apnea) Asthma Pulmonary hypertension Pulmonary emboli Dyspnea Social History Patient Tobacco Use Status: Never used Tobacco Review of Systems Const Denies fever(s) Eyes Reports no additional complaints ENT Denies nasal congestion Card Denies chest pain and Reports dyspnea on exertion Resp Reports dyspnea on exertion and Denies wheezing GI Reports no additional complaints Musc Reports no additional complaints Skin/Breast Denies rash Neuro Reports no additional complaints Endo Reports no additional complaints Cameron/Lymph Denies easy bleeding, Denies easy bruising and Denies lymphadenopathy Aller/Immun Denies wheezing Physical Exam Vital Signs: Last Vital Signs Pulse 83 08/06/24 11:34 BP 150/90 H 08/06/24 11:34 Pulse Ox 92 08/06/24 11:34 Oxygen Delivery Method Room Air 08/06/24 11:34 Const General: comfortable HEENT Head: Yes normal to inspection Neck Neck: Yes normal visual inspection Chest Chest palpation & inspection: normal inspection of the chest Resp Effort & Inspection: normal respiratory effort Auscultation: diminished lung sounds Cardio Rate: regular rate Rhythm: regular rhythm Heart sounds: S1 normal heart sound present and S2 normal heart sound present GI Palpation (GI): Soft to palpation Skin General skin exam: no rashes or lesions noted Extrem General: Yes no clubbing, cyanosis or edema Results Reviewed Results Reviewed: reviewed ECHO, bloodwork Assessment & Plan Assessment & Plan (1) Pulmonary hypertension: Comment: Likely WHO 2>3, no evidence of CTED; Did not tolerate vasodilator therapy due to cardiogenic pulmonary edema Code(s): I27.20 - Pulmonary hypertension, unspecified Category: Medical (2) CHF (congestive heart failure): Comment: HFPEF Code(s): I50.9 - Heart failure, unspecified Category: Medical Qualifiers: Heart failure type: diastolic Heart failure chronicity: chronic Qualified Code(s): I50.32 - Chronic diastolic (congestive) heart failure (3) Dyspnea: Code(s): R06.00 - Dyspnea, unspecified Category: Medical Qualifiers: Dyspnea type: dyspnea on exertion Qualified Code(s): R06.09 - Other forms of dyspnea (4) Pulmonary emboli: Comment: No evidence of CTED Code(s): I26.99 - Other pulmonary embolism without acute cor pulmonale Category: Medical Qualifiers: Acute cor pulmonale presence: unspecified Chronicity: chronic Pulmonary embolism type: other Qualified Code(s): I27.82 - Chronic pulmonary embolism (5) Asthma: Code(s): J45.909 - Unspecified asthma, uncomplicated Category: Medical Qualifiers: Asthma complication type: uncomplicated Asthma persistence: persistent Asthma severity: moderate Qualified Code(s): J45.40 - Moderate persistent asthma, uncomplicated (6) JACKIE (obstructive sleep apnea): Code(s): G47.33 - Obstructive sleep apnea (adult) (pediatric) Category: Medical (7) Insomnia: Code(s): G47.00 - Insomnia, unspecified Category: Medical Qualifiers: Insomnia type: primary Qualified Code(s): F51.01 - Primary insomnia Plan Oxygen supplementation 2L/pulse with POC. Repeat overnight oximetry on CPAP/RA Continue Eliquis BID daily weights continue CPAP therapy, adjusted 8-13 continue respiratory therapy with spiriva HARPAL as needed pulmonary rehab/exercise program Trazodone 150mg QHS gabapentin at night avoid benzos bloodwork CXR F/U with Cardiology/CHF clinic F/U 6-8 weeks Orders: Orders Overnight Pulse Oximetry Today I27.20 - Pulmonary hypertension, unspecified, I50.83 - High output heart failure Complete Blood Count Auto Diff Today I50.83 - High output heart failure, R06.09 - Other forms of dyspnea Basic Metabolic Panel Today I50.83 - High output heart failure, R06.09 - Other forms of dyspnea B Type Natriuretic Peptide Today I50.83 - High output heart failure, R06.09 - Other forms of dyspnea Erythrocyte Sedimentation Rate Today I50.83 - High output heart failure, R06.09 - Other forms of dyspnea Phosphorus Today I50.83 - High output heart failure, R06.09 - Other forms of dyspnea XR chest 2V Today I50.83 - High output heart failure Overnight Pulse Oximetry Today Venous Blood Gas Today I50.83 - High output heart failure, R06.09 - Other forms of dyspnea Magnesium Today I50.83 - High output heart failure, R06.09 - Other forms of dyspnea Ferritin Today I50.83 - High output heart failure, R06.09 - Other forms of dyspnea Medications: New fluticasone propionate 50 mcg/actuation 2 sprays intranasal DAILY 15.8 mL 11RF 30 days J31.0 - Chronic rhinitis Coding Level of Care Code Est Pt Level 5 (22754) Complex EM visit Add On G2211 Diagnoses Pulmonary hypertension I27.20 Chronic diastolic congestive heart failure I50.32 Heart failure type: diastolic Heart failure chronicity: chronic Dyspnea on exertion R06.09 Dyspnea type: dyspnea on exertion Other chronic pulmonary embolism, unspecified whether acute cor pulmonale present I27.82 Acute cor pulmonale presence: unspecified Chronicity: chronic Pulmonary embolism type: other Moderate persistent asthma without complication J45.40 Asthma complication type: uncomplicated Asthma persistence: persistent Asthma severity: moderate JACKIE (obstructive sleep apnea) G47.33 Primary insomnia F51.01 Insomnia type: primary Time Spent (min) 45
[2024-08-06 11:34] VITALS: BP 150/90; PULSE 83; O2SAT 92
== END 2024-08-06 12:17 | disposition home or self-care (01) ==
PROVIDERS: PCP Internal Medicine; Visit Provider Hospitalist
DX: I27.20 Pulmonary hypertension, unspecified (principal); I50.32 Chronic diastolic (congestive) heart failure; I27.82 Chronic pulmonary embolism; J45.40 Moderate persistent asthma, uncomplicated; G47.33 Obstructive sleep apnea (adult) (pediatric); F51.01 Primary insomnia
CPT/HCPCS: 99215; G2211

== ENCOUNTER → 2024-08-06 11:29 | Outpatient (BNVA) | payer MEDICARE, OTHER, SELFPAY | PROVIDERS: PCP Internal Medicine; Visit Provider Hospitalist | DX: I27.82 Chronic pulmonary embolism (principal); I27.20 Pulmonary hypertension, unspecified; I50.32 Chronic diastolic (congestive) heart failure; R06.09 Other forms of dyspnea; J45.40 Moderate persistent asthma, uncomplicated; G47.33 Obstructive sleep apnea (adult) (pediatric); F51.01 Primary insomnia | CPT/HCPCS: 99212 ==

== ENCOUNTER 2024-09-29 11:42 | Outpatient (REF) | payer MEDICARE, OTHER, SELFPAY ==
[2024-09-29 12:16] LABS: MANUAL DIFF FLAG NO
[2024-09-29 12:20] LABS: Basophils Percent Auto 0.4 % (0-2); Eosinophils Absolute Auto 0.1 X10*3/uL (0.0-0.4); Eosinophils Percent Auto 1.3 % (0-4); Hematocrit 37.2 % (37.0-47.0); Hemoglobin 12.4 g/dl (12.0-16.0); Imm Gran Abs Auto 0.01 X10*3/uL (0.00-0.03); Imm Gran Pct Auto 0.2 % (0.0-0.4); Lymphocytes Absolute Auto 1.6 X10*3/uL (1.2-4.9); Lymphocytes Percent Auto 30.1 % (20-40); Mean Corpuscular HGB Conc 33.3 g/dl (31.0-35.0); Mean Corpuscular Hemoglobin 31.6 pg (27.0-33.0); Mean Corpuscular Volume 94.7 fL (80.0-98.0); Mean Platelet Volume 11.6 fL (9.4-12.3); Monocytes Absolute Auto 0.4 X10*3/uL (0.1-1.2); Monocytes Percent Auto 6.9 % (2-11); Neutrophils Absolute Auto 3.3 x10*3/uL (2.0-8.3); Neutrophils Percent Auto 61.1 % (45-73); Platelet Count 130 X10*3/uL (160-400); Red Blood Count 3.93 X10*6/uL (4.20-5.50); Red Cell Distribution Width 12.9 % (11.0-16.0); White Blood Count 5.4 X10*3/uL (4.8-10.8)
[2024-09-29 12:22] LABS: Venous Blood Gas Refer to POC result
[2024-09-29 12:22] LABS: VBG pH 7.43 (7.32-7.43)
[2024-09-29 12:23] LABS: VBG Base Excess 12.2 mmol/L; VBG HCO3 38 mmol/L (22-26); VBG pCO2 58 mmHg; VBG pO2 38 mmHg
[2024-09-29 12:40] LABS: B Type Natriuretic Peptide 155 pg/mL (<100)
[2024-09-29 12:41] LABS: Anion Gap 11 (12-20); Blood Urea Nitrogen 17 mg/dL (9-16); Calcium 9.1 mg/dL (8.4-10.2); Carbon Dioxide 32 mmol/L (22-29); Chloride 105 mmol/L (96-108); Estimated Glomerular Filt Rate > 60; Glucose Random 105 mg/dL (60-115); Magnesium 1.9 mg/dL (1.6-2.6); Phosphorus 3.3 mg/dL (2.7-4.5); Potassium 3.7 mmol/L (3.3-5.1); Sodium 144 mmol/L (135-145)
[2024-09-29 12:55] LABS: Ferritin 46 ng/mL (10-250)
[2024-09-29 12:57] LABS: Erythrocyte Sedimentation Rate 10 MM/HR (0-20)
--- OUTSIDE RECORDS SUMMARY | 2024-09-29 13:03 | XMS_ITS | Encounter Summary ---
Author Organization [employer] Address [address] [place] [address] Care Team Providers Care Print Operator Name Role Phone Sherice John MD Primary Care Provider [phone] Encounter Details Date Type Department Care Team (Late st Contact Info) Description 01/16/2024 Orders Only [facility] MEDICAL [address] [place] [address] Provider, MD Kiersten Social History Tobacco Use Types Packs/Day Years Used Date Smoking Tobacco: Never Passive Smoke Exposure: Past Smokeless Tobacco: Never Alcohol Use Standard Drinks/Week Comments Yes 0 (1 standard drink = 0.6 oz pur e alcohol) Housing Stability Answer Date Recorded What is your housing situation today? I have magda hoskins 06/04/[address] you li ve. Do you have problems with any of the following? None of the above 06/04/2023 Food Insecurity Answer Date Recorded Within the past 12 months, y ou worried that your food would run out before you got money to buy more: Never True 12/04/2023 Within the past 12 months,th e food you bought just didn't last and you didn't have enough money to get more: Never True Transportation Answer Date Recorded In the past 12 months, has l ack of transportation kept you from medical appts, meetings, work or from getting things needed for daily living? No 06/04/2023 Utilities Answer Date Recorded In the past 12 months, has t he electric, gas, oil or water company threatened to shut off services in your home? No 06/04/2023 Depression Answer Date Recorded Patient Health Questionnaire-2 Score 0 12/04/2023 Comments Unknown Sex and Gender Information Value Date Recorded Sex Assigned at Female 08/01/2022 12:40 PM EST Legal Sex Female 8:36 PM EDT Gender Identity Female 08/01/2022 12:40 PM EST Sexual Orientation Straight 10/04/2022 3: 13 PM EST documented as of this encounter Plan of Treatment Upcoming Encounters Date Type Department Care Team (Late st Contact Info) Description 11/20/2024 11:00 AM EDT Office Visit [facility] OPTOMETRY [address] [place] [address] Parris Torres, OD [address] [place] [address] 12/25/2024 10:30 AM EDT Office Visit [facility] MEDICAL [address] [place] [address] Sherice John MD [address] [place] [address] documented as of this encounter Procedures Procedure Name Priority Date/Time Associated Diagnosis Comments TRANSTHORACIC ECHO (TTE) COMPLETE Routine 01/03/2024 4:27 AM EDT documented in this encounter Results * Transthoracic echo (TTE) complete (01/03/2024 4:27 AM EDT) us Historical Provider CV ECHO PROCEDURES Final Result documented in this encounter Visit Diagnoses Not on filedocumented in this encounter Care Teams Print Operator Relationship Specialty Start Date End Date Sherice John MD [address] [place] [address] PCP - General Internal Medicine 08/08/22 documented as of this encounter
--- OUTSIDE RECORDS SUMMARY | 2024-09-29 13:03 | XMS_ITS | Clinical Summary ---
Author Organization [facility] [employer] [facility] Address [address] [place] [address] Phone Care Team Providers Care Recovery Assistant Name Role Phone Sherice John MD Primary Care Provider Allergies Active Allergy Reactions Criticality Noted Date Comments House Dust 03/25/2019 Hydromorphone Nausea And Vomiting 04/19/2022 Other Reaction(s): Hives/Urticaria Hydromorphone Hcl 06/13/2024 Mold 03/25/2019 Sulfa (Sulfonamide Antibiotics) 02/07/2019 Other Reaction(s): Rash/Dermatitis Medications gabapentin (NEURONTIN) 400 mg capsule Take 3 capsules (1,200 mg total) by mouth 1 (one) time each day. Active lansoprazole (PREVACID) [address] capsule Take 1 capsule (30 mg total) by mouth 1 (one) time each day. Active lisinopriL (PRINIVIL,ZESTRI L) 20 mg tablet Take 1 tablet (20 mg total) by mouth 1 (one) time each day. Active rosuvastatin (CRESTOR) 20 mg tablet Take 1 tablet (20 mg total) by mouth 1 (one) time each day. Active sertraline (ZOLOFT) 100 mg tablet Take 1.5 tablets (150 mg total) by mouth 1 (one) time each day. Active SUMAtriptan (IMITREX) 100 mg tablet Take 1 Tab by mouth daily as needed. At the onset of a headache Active mexiletine (MEXITIL) 150 mg capsule Take 1 capsule (150 mg total) by mouth 2 (two) times a day. Active tiotropium (SPIRIVA) 18 mcg per inhalation capsule Inhale into the lungs daily. Inhale the contents of one capsule through the Spiriva device every AM Active dilTIAZem (CARDIZEM) 120 mg immediate release tablet Take 1 tablet (120 mg total) by mouth 1 (one) time each day. Active denosumab (Prolia) 60 mg/mL syringe syringe Inject 60 mg into the skin Every 6 Months. Active cholecalciferol (VITAMIN D-3) 50 mcg (2,000 unit) tablet Take 1 tablet (2,000 Units total) by mouth 1 (one) time each day. Active calcium carbonate (OS-MILLA) 1,250 mg (500 mg elemental calcium) tablet Take 1 tablet by mouth daily. After a meal Active apixaban (Eliquis) 5 mg tablet Take 1 tablet (5 mg total) by mouth 2 (two) times a day. 3 Active ALPRAZolam (NIRAVAM) 0.25 mg dispersible tablet Take 1 tablet (0.25 mg total) by mouth at bedtime as needed for sleep. Take 2 Tabs by mouth at bedtime as needed. Active Oxygen Therapy (O2) gas Inhale by mouth 1 (one) time each day. Oxygen Historical (HISTORICAL OXYGEN) Active LEVALBUTEROL HCL INHL Inhale into the lungs every 4 hours as needed. Active cyclosporine (RESTASIS OPHT) apply 1 Drop to the eye 2 times daily Active BENZONATATE ORAL Take by mouth as needed Active ACETAMINOPHEN ORAL Take by mouth if needed. Active guaifenesin/dext romethorphan (MUCINEX DM ORAL) Take by mouth. Activ e furosemide (LASIX) 40 mg tablet Take 1 tablet (40 mg total) by mouth 1 (one) time each day. 90 each 1 4 Active empagliflozin (JARDIANCE) 10 mg tablet Take 1 tablet (10 mg total) by mouth 1 (one) time each day in the morning. 30 tablet 11 5 Active Active Problems Problem Noted Date Diagnosed Date Chronic diastolic heart failure 09/08/2024 Assessment & Plan (09/08/2024 2:03 PM EST): HfpEF with improved symptoms on adjusted diuretic therapy although remains on O2 and with dyspnea. Interestingly her BNP when last checked was entirely normal and recent echo with normalized PA pressures. Her condition has been challenging to identify because the only sign has consistently been an increased LA size without other typical markers of HFpEF. Nonetheless she clinically has HF. I recommended starting Jardiance. Will plan to check BMP in around 1 week. I will follow up with her and consider Aldactone as a next step. BP is well controlled. I suggested a cardiac MRI to evaluate for other causes of HFpEF such as infiltrative cardiomyopathy or pericardial disease which can be missed on echocardiogram. Pulmonary embolus 11/09/2022 PVC (premature ventricular contraction) 11/08/19 Overview (06/13/2024): Last Assessment & Plan: Symptomatic control and low frequency of PVCs on most recent rhythm monitor. Continue diltiazem and mexiletine. Appreciate management from [facility] [place]. Seasonal allergies 11/07/2022 Moderate persistent asthma 11/07/2022 Bradycardia 03/13/2022 Shortness of breath 03/13/2022 Palpitations 08/09/2020 Overview (06/13/2024): +symptomatic PVCs on ROCT Last Assessment & Plan: Symptomatic PVCs which have been effectively suppressed with bisoprolol. I do not believe these are contributing to her clinical presentation at this time. Osteoporosis 03/25/2019 Nephrolithiasis 03/25/2019 Migraine without aura 03/25/2019 Hypertension 03/25/2019 Overview (06/13/2024): Last Assessment & Plan: Blood pressures controlled on current regimen. Cataract 03/25/2019 Overview (06/13/2024): Bilateral Insomnia 03/25/2019 Restless leg syndrome 03/25/2019 Osteoarthritis 03/25/2019 Overview (06/13/2024): Knees Allergic rhinitis 03/25/2019 Depression 03/25/2019 CAD (coronary artery disease) 03/25/2019 Vitamin D deficiency 03/25/2019 Aortic atherosclerosis 03/25/2019 Mitral valve regurgitation 03/25/2019 Overview (06/13/2024): 11/2018 CAIT: Mild Last Assessment & Plan: Mild to moderate mitral regurgitation. Blood pressure goal less than 130/80. Will plan to repeat echocardiogram in around 6 months. Dilated cardiomyopathy 03/25/2019 Overview (06/13/2024): 11/2018 CAIT: severly dilated Left atrium Pulmonary hypertension 02/07/2019 Overview (06/13/2024): 11/22/18 CAIT: Mild Last Assessment & Plan: Exercise-induced pulmonary hypertension. She did not respond well to sildenafil. I would defer management of this issue to her route relief driver. Fortunately her dyspnea on exertion has been stable and is not significantly interfering with her quality of life. Mild persistent asthma 02/07/2019 GERD (gastroesophageal reflux disease) 9 Encounters Date Type Department Care Team Description 09/19/[address] [facility] [address] [place] [address] Racheal Sears MD Appointment (Cardiac MRI) 09/18/[address] [facility] [address] [place] [address] Racheal Sears MD Med Refill; Other 09/11/2024 Telephone [facility] Cardiology [facility] [address] [facility] [address] [place] [address] Racheal Sears MD Pre-operative Clearance 09/05/2024 11:30 AM EST Office Visit [facility] [address] [place] [address] Racheal Sears MD Hypertension, unspecified type (Primary Dx); Dilated cardiomyopathy (CMS/HCC); Chronic diastolic heart failure (CMS/HCC) 08/25/[address] [facility] [address] [place] [address] Racheal Sears MD Fatigue from Last 3 Months Immunizations Name Administration Dates Next Due Influenza trivalent, 0.5mL, preservative free (Fluarix; FluLaval; Fluzone) ages 6mo and older (Afluria) 3 years and older 06/21/2018,08/24/2017 Moderna SARS-CoV-2 COVID-19, mRNA, LNP-S, preservative free 06/10/2021,11/12/2020,10/15/2020 Pneumococcal polysaccharide 23 valent (Pneumovax 23) 2yo and older 08/24/2017 Tdap Tetanus diptheria acell ular pertussis (Boostrix; Adacel) 7yo and older 05/10/2012 Surgical History Surgery Date Site/Laterality Comments TOTAL KNEE ARTHROPLASTY 08/2017 Left PROCEDURE: HISTORICAL TOTAL KNEE REPLACE KIDNEY STONE SURGERY 01/2017 PROCEDURE: [place] NEPHROLITHOTOMY REMOVAL CALCULUS; COMMENT: Ureteroscopy/stone removal /stent placement & removal Dr Marshall CATARACT EXTRACTION 2011 PROCEDURE: HISTORICAL CATARACT REMOVAL Medical History Medical History Date Comments GERD (gastroesophageal reflu x disease) 02/07/2019 DX:GERD (gastroesophageal re flux disease) Osteoporosis 03/25/2019 DX:Osteoporosis Anxiety 03/25/2019 DX:Anxiety Hyperlipidemia 03/25/2019 DX:Hyperlipidemi a Nephrolithiasis 03/25/2019 DX:Nephrolithias is Migraine without aura 03/25/2019 DX:Migrain e without aura Hypertension 03/25/2019 DX:Hypertension Cataract 03/25/2019 DX:Cataract; COM MENT: Bilateral Insomnia 03/25/2019 DX:Insomnia Restless leg syndrome 03/25/2019 DX:Restles s leg syndrome Osteoarthritis 03/25/2019 DX:Osteoarthriti s; COMMENT: Knees Allergic rhinitis 03/25/2019 DX:Allergic rh initis Depression 03/25/2019 DX:Depression Total knee replacement status 03/25/2019 DX :Total knee replacement status; COMMENT: 2018 Left CAD (coronary artery disease) 03/25/2019 DX :CAD (coronary artery disease) Vitamin D deficiency 03/25/2019 DX:Vitamin D deficiency Mild persistent asthma 02/07/2019 DX:Mild p ersistent asthma JACKIE (obstructive sleep apnea) 02/07/2019 DX :JACKIE (obstructive sleep apnea) Aortic atherosclerosis (CMS/HCC) 03/25/2019 DX:Aortic atherosclerosis (HCC) Mitral valve regurgitation 03/25/2019 DX:Mi tral valve regurgitation; COMMENT: 11/2018 CAIT: Mild Dilated cardiomyopathy (CMS/HCC) 03/25/2019 DX:Dilated cardiomyopathy (HCC); COMMENT: 11/2018 CAIT: severly dilated Left atrium Pulmonary hypertension (CMS/HCC) 02/07/2019 DX:Pulmonary hypertension (HCC); COMMENT: 11/22/18 CAIT: Mild Primary insomnia DX:Primary inso mnia Seasonal allergies DX:Seasonal a llergies Vertigo DX:Vertigo Recurrent sinusitis DX:Recurrent sinusitis Family History Medical History Relation Name Comments Other: Heart Disease Father Stroke Mother Relation Name Status Comments Father Mother Social History Tobacco Use Types Packs/Day Years Used Date Smoking Tobacco: Never Smokeless Tobacco: Never Alcohol Use Standard Drinks/Week Comments Yes 0 (1 standard drink = 0.6 oz pur e alcohol) beer/wine - 2 per wk Comments Unknown Sex and Gender Information Value Date Recorded Sex Assigned at Not on file Legal Sex Female 12:11 PM EST Gender Identity Not on file Sexual Orientation Not on file Obstetrics History Last Filed Vital Signs Vital Sign Reading Time Taken Comments Blood Pressure 124/78 09/05/2024 11:29 AM EST Pulse 87 09/05/2024 11:29 AM EST Temperature - - Respiratory Rate - - Oxygen Saturation 98% 09/05/2024 11:29 AM EST Inhaled Oxygen Concentration - - Weight 80.7 kg (178 lb) 09/05/2024 11:29 AM EST Height 161.3 cm (5' 3.5 ) 09/05/2024 11:29 AM ES T Body Mass Index 31.04 09/05/2024 11:29 AM EST Plan of Treatment Health Maintenance Due Date Last Done Comments Zoster Vaccines (1 of 2) 2002 DTaP,Tdap,and Td Vaccines (2 - Td or Tdap) 06/07/2012 05/10/2012 Colorectal Cancer Screening: Colonoscopy 07/29/2022 Depression Screening 07/29/2022 Falls Risk Assessment 07/29/2022 Hepatitis C Screening 07/29/2022 Medicare Annual Wellness Visit 07/29/2022 Osteoporosis Screening (Bone Density Screening) 07/29/2022 Social Influencers of Health Screening 07/29/2022 Hypertension/CHF/CAD Annual BMP Blood Test 06/25/2025 06/25/2024, 12/06/2023, 10/01/2023, Additional history exists Breast Cancer Screening 12/31/2025 01/01/2024 Cholesterol Screening (Lipid Panel) 09/07/2027 09/07/2022 Pneumococcal Vaccine: 50+ Years Completed 07/14/2019, 08/24/2017 Influenza Vaccine Completed 05/15/2024, , 06/27/2022, Additional history exists RSV Immunization Patients 60+ Years Old Completed 05/21/2024 COVID-19 Vaccine Completed 07/25/2024, , 05/18/2023, Additional history exists HIB Vaccines Aged Out No longer eligi ble based on patient's age to complete this topic HPV Vaccines Aged Out No longer eligi ble based on patient's age to complete this topic Hepatitis A Vaccines Aged Out No long er eligible based on patient's age to complete this topic Hepatitis B Vaccines Aged Out No long er eligible based on patient's age to complete this topic IPV Vaccines Aged Out No longer eligi ble based on patient's age to complete this topic MMR Vaccines Aged Out No longer eligi ble based on patient's age to complete this topic Meningococcal ACWY Vaccine Aged Out N o longer eligible based on patient's age to complete this topic Meningococcal B Vacine Aged Out No lo nger eligible based on patient's age to complete this topic RSV Immunization Patients Under 20 months Aged Out No longer eligible based on patient's age to complete this topic Varicella Vaccines Aged Out No longer eligible based on patient's age to complete this topic Procedures Procedure Name Priority Date/Time Associated Diagnosis Comments ECG 12-LEAD Routine 09/05/2024 11:42 AM EST Hypertension, unspecified type COMPREHENSIVE METABOLIC PANEL Routine 06/25/2024 12:42 PM EST from Last 3 Months or Most Recently Relevant to Health Maintenance Results * ECG 12 lead (09/05/2024 11:42 AM EST) Ventricular Rate ECG 77 BPM GEMUSE Atrial Rate 77 BPM GEMUSE P-R Interval 146 ms GEMUSE QRS Duration 74 ms GEMUSE Q-T Interval 370 ms GEMUSE QTc 418 ms GEMUSE P Wave [place] 66 degrees GEMUSE R [place] 65 degrees GEMUSE T [place] 65 degrees GEMUSE ECG Interpretation Normal sinus rhythm Septal infarct , age undetermined Abnormal ECG No previous ECGs available Confirmed by RACHEAL SEARS ([id number]) on 09/08/2024 1:46:46 PM GEMUSE 09/05/2024 11:4 2 AM EST 09/08/2024 1:46 PM EST Racheal Saers MD ECG ORDERABLES Final Result ISAURA * Comprehensive metabolic panel (06/25/2024 12:42 PM EST) Glucose 85 70 - 99 mg/dL [facility] Blood Urea Nitrogen (BUN) 24 8 - 27 mg/dL [facility] Creatinine 0.93 0.57 - 1.00 mg/dL [facility] 1 eGFR 65 >59 mL/min/1. 73 [facility] 1 BUN/Creatinine Ratio 26 12 - 28 [facility] 1 Sodium 140 134 - 144 mmol/L [facility] 1 Potassium 4.2 3.5 - 5.2 mmol/L [facility] 1 Chloride 98 96 - 106 mmol/L [facility] 1 Carbon Dioxide 28 20 - 29 mmol/L [facility] 1 Calcium 9.5 8.7 - 10.3 mg/dL [facility] 1 Protein Total 6.6 6.0 - 8.5 g/dL [facility] 1 Albumin 4.4 3.8 - 4.8 g/dL [facility] 1 Globulin Total 2.2 1.5 - 4.5 g/dL [facility] 1 Bilirubin Total 0.5 0.0 - 1.2 mg/dL [facility] 1 Alkaline Phosphatase 54 44 - 121 IU/L [facility] 1 Aspartate aminotransferase??(A ST) 22 0 - 40 IU/L [facility] 1 Alanine Aminotransferase (ALT) 24 0 - 32 IU/L [facility] 1 06/25/2024 12:4 2 PM EST 06/25/2024 Narrative [facility] 1 - 06/26/2024 4:07 AM EST Performed at: ??01 - [facility] [address] ??[id number] Whitewasher: Trudy Zamudio MD, Phone: ??[phone] us Reshma Valderrama LEAD SOFTWARE DEVELOPMENT ENGINEER LAB BLOOD ORDERABLES Final R esult [facility] 1 from Last 3 Months or Most Recently Relevant to Health Maintenance Insurance MEDICARE [facility] Care Teams Recovery Assistant Relationship Specialty Start Date End Date Sherice John MD [address] [place] [id number] PCP - General Internal Medicine 01/10/19
--- OUTSIDE RECORDS SUMMARY | 2024-09-29 13:03 | XMS_ITS | Encounter Summary ---
Author Organization [facility] Address [address] [place] [address] Care Team Providers Care Clinical Manager Name Role Phone Sherice John MD Primary Care Provider [phone] Reason for Visit * Reason Onset Date Comments Med Refill 09/18/2024 Other 09/18/2024 Encounter Details Date Type Department Care Team (Late st Contact Info) Description 09/18/2024 Telephone [facility] Cardiology [facility] [address] [place] [address] [place] [id number] Mikal Jones MD [address] [place] [address] [address] [place] [address] Med Refill; Other Social History Tobacco Use Types Packs/Day Years [...] on file Sexual Orientation Not on file documented as of this encounter Progress Notes * Toshia Figueroa RN - 09/25/2024 10:26 AM EST Spoke to and informed her of the below message. * Toshia Figueroa RN - 09/24/2024 4:43 PM EST I spoke to for 18 minutes. She does not need refills for Jardiance. Pt relayed she hasn't noticed much of a difference in her symptoms while taking Jardiance. Pt continues to endorse SOB intermittently. Pt reports her O2 levels are getting worse. Yesterday, she checked her O2 as she was feeling fatigued and off. Her O2 level was 85%. She then applied 2 L of O2 via n/c, then her O2 was rechecked at the doctor's office- 92%. The same thing occurred today and her O2 went up to 94% after applying her oxygen. She denies rapid weight gain or issues voiding. hasn't been able to get BMP drawn as advised during [facility], but she is planning to go next week. She was supposed to see her Differential Tester tomorrow, but had to reschedule to October because she didn't have a ride. Her cardiac [place] [facility] She also mentioned her father did not have ALS. He had his aortic valve replaced twice, believes healso had rheumatic fever and heart failure. Her mother had a stroke. She would like this changed inher record. * Toshia Figueroa RN - 09/18/2024 1:35 PM EST DEMET[facility]O noted, I recommended starting Jardiance. Will plan to check BMP in around 1 week. I will follow up with her and consider Aldactone as a next step. I left a message on 's machine for call back. * N'Renu Mock - 09/18/2024 12:02 PM EST Patient needs a refill for Jardiance 10 mg 1 tab daily. Send to [facility] in [place] for a 90 day supply.She has notice any new changes on this medication. She is able to tolerate her Lasix using this medication. Patient states on her chart under family history it states her father has ALS. This is incorrect. She would like this changed. documented in this encounter Plan of Treatment Not on file documented as of this encounter Visit Diagnoses Not on filedocumented in this encounter Care Teams Clinical Manager Relationship Specialty Start Date End Date Sherice John MD [address] [place] [id number] PCP - General Internal Medicine 01/10/19 documented as of this encounter
--- OUTSIDE RECORDS SUMMARY | 2024-09-29 13:03 | XMS_ITS | Encounter Summary ---
Author Organization [employer] Address [address] [facility] [address] [place] [address] Care Team Providers Care Aircraft Machinist Helper Name Role Phone Sherice John MD Primary Care Provider [phone] Encounter Details Date Type Department Care Team (Late st Contact Info) Description 05/14/2024 Orders Only [facility] [address] [place] [address] Sherice John MD [address] [place] [address] Social History Tobacco Use Types Packs/Day Years [...] Description 11/20/2024 11:00 AM EDT Office Visit [facility] OPTOMETRY [address] [place] [address] Parris Torres, OD [address] [place] [address] 12/25/2024 10:30 AM EDT Office Visit [facility] MEDICAL [address] [place] [address] Sherice John MD [address] [place] [address] documented as of this encounter Procedures Procedure Name Priority Date/Time Associated Diagnosis Comments PATHOLOGY REPORT (HISTOPATHOLOGY) Routine 05/06/2024 11:01 AM EDT PATHOLOGY REPORT (HISTOPATHOLOGY) Routine 05/05/2024 11:01 AM EDT documented in this encounter Results * Pathology Report (Histopathology) (05/06/2024 11:01 AM EDT) Tissue Sherice John MD LAB PATHOLOGY ORDERABLES Final R esult * Pathology Report (Histopathology) (05/05/2024 11:01 AM EDT) Tissue us Sherice John MD LAB PATHOLOGY ORDERABLES Final R esult documented in this encounter Visit Diagnoses Not on filedocumented in this encounter Care Teams Aircraft Machinist Helper Relationship Specialty Start Date End Date Sherice John MD [address] [place] [address] PCP - General Internal Medicine 08/08/22 documented as of this encounter
--- OUTSIDE RECORDS SUMMARY | 2024-09-29 13:03 | XMS_ITS | Encounter Summary ---
Author Organization [employer] Address [address] [facility] [address] [place] [address] Care Team Providers Care Wood Experimental Mechanic Name Role Phone Sherice John MD Primary Care Provider [phone] Encounter Details Date Type Department Care Team (Late st Contact Info) Description 10/01/2023 Orders Only [facility] [address] [place] [address] Sherice John MD [address] [place] [address] Social History Tobacco Use Types Packs/Day Years [...] before you got money to buy more: Sometimes True 2022 Within the past 12 months,th e food you bought just didn't last and you didn't have enough money to get more: Sometimes True 06/04/2023 Transportation Answer Date Recorded In the past 12 months, has l ack of transportation kept you from medical appts, meetings, work or from getting things needed for daily living? No 06/04/2023 Utilities Answer Date Recorded In the past 12 months, has t he electric, gas, oil or water company threatened to shut off services in your home? No 06/04/2023 Comments Unknown Sex and Gender Information Value [...] Description 11/20/2024 11:00 AM EDT Office Visit [facility] OPTOMETRY [address] [place] [address] Parris Torres, OD [address] [place] [address] 12/25/2024 10:30 AM EDT Office Visit [facility] MEDICAL [address] [place] [address] Sherice John MD [address] [place] [address] documented as of this encounter Procedures Procedure Name Priority Date/Time Associated Diagnosis Comments CBC WITH AUTO DIFFERENTIAL Routine 10/01/2023 documented in this encounter Results * CBC auto differential (10/01/2023) Blood Venous blood specimen / Unknown Sherice John MD LAB BLOOD ORDERABLES Edited Resu lt - Final documented in this encounter Visit Diagnoses Not on filedocumented in this encounter Care Teams Wood Experimental Mechanic Relationship Specialty Start Date End Date Sherice John MD [address] [place] [phone] PCP - General Internal Medicine 08/08/22 documented as of this encounter
--- OUTSIDE RECORDS SUMMARY | 2024-09-29 13:03 | XMS_ITS | Encounter Summary ---
Author Organization [employer] Address 75 [facility] 7t [place] [address] Care Team Providers Care Piping Engineer Name Role Phone Sherice John MD Primary Care Provider [phone] Encounter Details Date Type Department Care Team (Late st Contact Info) Description 01/07/2024 Orders Only [facility] [address] [place] [address] Sherice John MD [address] [place] [address] Social History Tobacco Use Types Packs/Day Years [...] Description 11/20/2024 11:00 AM EDT Office Visit [facility] OPTOMETRY [address] [place] [address] Parris Torres, OD [address] [place] [address] 12/25/2024 10:30 AM EDT Office Visit [facility] MEDICAL [address] [place] [address] Sherice John MD [address] [place] [address] documented as of this encounter Procedures Procedure Name Priority Date/Time Associated Diagnosis Comments BI MAMMOGRAM SCREENING TOMOSYNTHESIS BILATERAL Routine 01/01/2024 2:48 PM EDT documented in this encounter Results * BI Mammogram Screening Tomosynthesis Bilateral (01/01/2024 2:48 PM EDT) Anatomical Region Laterality Modality Breast Bilateral Mammography Sherice John MD IMG BI PROCEDURES Final Result documented in this encounter Visit Diagnoses Not on filedocumented in this encounter Care Teams Piping Engineer Relationship Specialty Start Date End Date Sherice John MD [address] [place] [address] PCP - General Internal Medicine 08/08/22 documented as of this encounter
--- OUTSIDE RECORDS SUMMARY | 2024-09-29 13:03 | XMS_ITS | Encounter Summary ---
Author Organization [employer] Address 75 [facility] 7t [place] [address] Care Team Providers Care Marketing Intelligence Analyst Name Role Phone Sherice John MD Primary Care Provider [phone] Reason for Visit * Reason Onset Date Comments Med Refill 09/02/2024 Encounter Details Date Type Department Care Team (Late st Contact Info) Description 09/02/2024 Refill [facility] MEDICAL [address] [place] [address] Sherice John MD [address] [place] [address] Essential hypertension Social History Tobacco Use Types Packs/Day Years [...] Description 11/20/2024 11:00 AM EDT Office Visit [facility] OPTOMETRY [address] [place] [address] Parris Torres, YONI [address] [place] [address] 12/25/2024 10:30 AM EDT Office Visit [facility] MEDICAL [address] [place] [address] Sherice John MD [address] [place] [address] documented as of this encounter Visit Diagnoses Diagnosis Essential hypertension Unspecified essential hypertension documented in this encounter Care Teams Marketing Intelligence Analyst Relationship Specialty Start Date End Date Sherice John MD [address] [place] [id number] PCP - General Internal Medicine 08/08/22 documented as of this encounter
--- OUTSIDE RECORDS SUMMARY | 2024-09-29 13:03 | XMS_ITS | Encounter Summary ---
Author Organization [employer] Address 75 [facility] 7t [place] [address] Care Team Providers Care Research Fellow Name Role Phone Sherice John MD Primary Care Provider [phone] Encounter Details Date Type Department Care Team (Late st Contact Info) Description 12/19/2023 Orders Only [facility] [address] [place] [address] Sherice John MD [address] [place] [address] Social History Tobacco Use Types Packs/Day Years [...] Description 11/20/2024 11:00 AM EDT Office Visit [facility] OPTOMETRY [address] [place] [address] Praris Torres, OD [address] [place] [address] 12/25/2024 10:30 AM EDT Office Visit [facility] MEDICAL [address] [place] [address] Sherice John MD [address] [place] [address] documented as of this encounter Procedures Procedure Name Priority Date/Time Associated Diagnosis Comments XR CHEST 2 VIEWS Routine 12/11/2023 11:11 AM EDT documented in this encounter Results * XR Chest 2 Views (12/11/2023 11:11 AM EDT) Anatomical Region Laterality Modality Chest Radiographic Tami ging Sherice John MD IMG XR PROCEDURES Final Result documented in this encounter Visit Diagnoses Not on filedocumented in this encounter Care Teams Research Fellow Relationship Specialty Start Date End Date Sherice John MD [address] [place] [address] PCP - General Internal Medicine 08/08/22 documented as of this encounter
--- OUTSIDE RECORDS SUMMARY | 2024-09-29 13:03 | XMS_ITS | Encounter Summary ---
Author Organization [employer] Address 75 [facility] 7t [place] [address] Care Team Providers Care Laminate Floor Installer Name Role Phone Sherice John MD Primary Care Provider [phone] Encounter Details Date Type Department Care Team (Late st Contact Info) Description 07/31/2023 Orders Only [facility] [address] [place] [address] Sherice John MD [address] [place] [address] Social History Tobacco Use Types Packs/Day Years [...] Description 11/20/2024 11:00 AM EDT Office Visit [facility] OPTOMETRY [address] [place] [address] Parris Torres, OD [address] [place] [address] 12/25/2024 10:30 AM EDT Office Visit [facility] MEDICAL [address] [place] [address] Sherice John MD [address] [place] [address] documented as of this encounter Procedures Procedure Name Priority Date/Time Associated Diagnosis Comments TSH Routine 07/30/2023 documented in this encounter Results * TSH (07/30/2023) Blood Venous blood specimen / Unknown us Sherice John MD LAB BLOOD ORDERABLES Edited Resu lt - Final documented in this encounter Visit Diagnoses Not on filedocumented in this encounter Care Teams Laminate Floor Installer Relationship Specialty Start Date End Date Sherice John MD [address] [place] [address] PCP - General Internal Medicine 08/08/22 documented as of this encounter
--- OUTSIDE RECORDS SUMMARY | 2024-09-29 13:03 | XMS_ITS | Encounter Summary ---
Author Organization [facility] Address [address] [place] [address] Care Team Providers Care Imaging Center Manager Name Role Phone Sherice John MD Primary Care Provider [phone] Reason for Visit * Reason Onset Date Comments Pre-operative Clearance 09/11/2024 Encounter Details Date Type Department Care Team (Late st Contact Info) Description 09/11/2024 Telephone [facility] [address] [place] [address] [place] [address] Mikal Jones MD [address] [place] [address] Dr [address] [place] [address] Pre-operative Clearance Social History Tobacco Use Types Packs/Day Years [...] as of this encounter Progress Notes * Brenda Maurer MA - 09/11/2024 3:53 PM EST faxed * Vanessa Piña - 09/11/2024 3:08 PM EST Sharmaine prather [facility] called. The patient is having right hip replacement with Dr. Reyes on 11/17/24. She would like to know if an addendum can be made to her appointment from 09/05/24 clearing her for surgery. Please call her back at [phone], fax [phone]. documented in this encounter Plan of Treatment Not on file documented as of this encounter Visit Diagnoses Not on filedocumented in this encounter Care Teams Imaging Center Manager Relationship Specialty Start Date End Date Sherice John MD [address] [place] [address] PCP - General Internal Medicine 01/10/19 documented as of this encounter
--- OUTSIDE RECORDS SUMMARY | 2024-09-29 13:03 | XMS_ITS | Encounter Summary ---
Author Organization [employer] Address 75 [facility] 7t [place] [address] Care Team Providers Care Sort Worker Name Role Phone Sherice John MD Primary Care Provider [phone] Reason for Visit * Reason Onset Date Comments Medical Records request 09/23/2024 Encounter Details Date Type Department Care Team (Late st Contact Info) Description 09/23/2024 Telephone [facility] MEDICAL [address] [place] [address] Sherice John MD [address] [place] [address] Medical Records request Social History Tobacco Use Types Packs/Day Years [...] PM EST documented as of this encounter Miscellaneous Notes * Telephone Encounter - SCOTT Yoo - 09/23/2024 12:32 PM EST Patient had a colonoscopy @ [facility] end of last year documented in this encounter Plan of Treatment Upcoming Encounters Date Type Department Care Team (Late st Contact Info) Description 11/20/2024 11:00 AM EDT Office Visit [facility] OPTOMETRY [address] [place] [address] Parris Torres, YONI [address] [place] [address] 12/25/2024 10:30 AM EDT Office Visit [facility] MEDICAL [address] [place] [address] Sherice John MD [address] [place] [address] documented as of this encounter Visit Diagnoses Not on filedocumented in this encounter Care Teams Sort Worker Relationship Specialty Start Date End Date Sherice John MD [address] [place] [address] PCP - General Internal Medicine 08/08/22 documented as of this encounter
--- OUTSIDE RECORDS SUMMARY | 2024-09-29 13:03 | XMS_ITS | Clinical Summary ---
Author Organization [facility] Address [address] [place] [address] Care Team Providers Care Caramel Cutter Machine Name Role Phone Sherice John MD Primary Care Provider [phone] Allergies Active Allergy Reactions Criticality Noted Date Comments Sulfa Antibiotics Rash/Dermatitis,Myal benjy/Myositis/Ar thralgia/Arthritis Low 12/19/2018 Social History Tobacco Use Types Packs/Day Years Used Date Smoking Tobacco: Never Assessed Sex and Gender Information Value Date Recorded Sex Assigned at Not on file Gender Identity Not on file Sexual Orientation Not on file Last Filed Vital Signs Vital Sign Reading Time Taken Comments Blood Pressure - - Pulse - - Temperature - - Respiratory Rate - - Oxygen Saturation - - Inhaled Oxygen Concentration - - Weight 70.3 kg (155 lb) 12/19/2018 8:14 AM EDT Height 162.6 cm (5' 4 ) 12/19/2018 8:14 AM EDT Body Mass Index 26.61 12/19/2018 8:14 AM EDT Plan of Treatment Health Maintenance Due Date Last Done Comments Hepatitis C Virus Screening 1952 DTaP/Tdap/Td Vaccines (1 - Tdap) 1971 Mammogram 1992 Colonoscopy 1997 Pneumococcal Vaccines 50+ (1 of 1 - PCV) 2002 Zoster (Shingles) Vaccine (1 of 2) 2002 DXA Bone Density (Females,Ag es 65 and older) 2017 Influenza Vaccine 03/20/2024 COVID-19 Vaccine ( - 2023-2 5 season) 2024 RSV Vaccine 60 years and old er and Patients (1 - 1-dose 75+ series) 2027 Hepatitis B Vaccines Aged Out No long er eligible based on patient's age to complete this topic Care Teams Caramel Cutter Machine Relationship Specialty Start Date End Date Sherice John MD [address] [place] [place] [address] PCP - General 12/12/18
--- OUTSIDE RECORDS SUMMARY | 2024-09-29 13:03 | XMS_ITS | Encounter Summary ---
Author Organization [employer] Address [address] [place] [address] [address]t [place] [address] Care Team Providers Care Director Of Digital Platforms Name Role Phone Sherice John MD Primary Care Provider [phone] Reason for Referral * Imaging (Routine) - Pending Review Specialty Diagnoses / Procedures Referred By Tyler yeung Referred To Contact Radiology Diagnoses Syncope, unspecified syncope type Procedures MR Brain w/o Contrast Sherice John MD [address] [place] [address] Phone: tel: fax: [facility] [place] [address] [place] [address] Phone: tel: fax: Referral ID Status Reason Start Date Expiration Date V isits Requested Visits Authorized [id number] Pending Review 09/23/2024 09/23/2025 1 1 Reason for Visit * Reason Comments Follow-up Patient is not getti ng the sx done - this will be a routine follow Encounter Details Date Type Department Care Team (Late st Contact Info) Description 09/23/2024 12:00 PM EST Office Visit [facility] MEDICAL [address] [place] [address] Sherice John MD [address] [place] [address] Syncope, unspecified syncope type (Primary Dx) Social History Tobacco Use Types Packs/Day Years [...] PM EST documented as of this encounter Last Filed Vital Signs Vital Sign Reading Time Taken Comments Blood Pressure 134/69 09/23/2024 12:26 PM EST Pulse 73 09/23/2024 12:26 PM EST Temperature 36.4 ??C (97.5 ??F) 09/23/2024 12:[address] Respiratory Rate 16 09/23/2024 12:26 PM EST Oxygen Saturation 94% 09/23/2024 12:26 PM EST 2L Inhaled Oxygen Concentration - - Weight 79.8 kg (176 lb) 09/23/2024 12:26 PM EST Height 162.6 cm (5' 4 ) 09/23/2024 12:26 PM EST Body Mass Index 30.21 09/23/2024 12:26 PM EST documented in this encounter Plan of Treatment Upcoming Encounters Date Type Department Care Team (Late st Contact Info) Description 11/20/2024 11:00 AM EDT Office Visit [facility] OPTOMETRY [address] [place] [address] Parris Torres, YONI [address] [place] [address] 12/25/2024 10:30 AM EDT Office Visit [facility] MEDICAL [address] [place] [address] Sherice John MD [address] [place] [address] Scheduled Orders Name Type Priority Associated Diagnoses Orde r Schedule MR Brain w/o Contrast Imaging Routine Syncope, unspecified syncope type Expected: 09/23/2024, Expires: 09/23/2025 documented as of this encounter Visit Diagnoses Diagnosis Syncope, unspecified syncope type- Primary documented in this encounter Care Teams Director Of Digital Platforms Relationship Specialty Start Date End Date Sherice John MD [address] [place] [address] PCP - General Internal Medicine 08/08/22 documented as of this encounter
--- OUTSIDE RECORDS SUMMARY | 2024-09-29 13:03 | XMS_ITS | Encounter Summary ---
Author Organization [facility] Address [address] [place] [address] Care Team Providers Care Foreclosure Clerk Name Role Phone Sherice John MD Primary Care Provider [phone] Reason for Visit * Reason Onset Date Comments Appointment 09/19/2024 Cardiac MRI Encounter Details Date Type Department Care Team (Late st Contact Info) Description 09/19/2024 Telephone [facility] Associates [facility] [address] [place] [address] Dr Drew [address] [place] [address] Mikal Jones MD [address] [place] [address] Dr Cedeño [address] [place] [address] Appointment (Cardiac MRI) Social History Tobacco Use Types Packs/Day Years [...] as of this encounter Progress Notes * Sonia Woo - 09/23/2024 8:12 AM EST Pt is scheduled for a Cardiac MRI scan on 10/06/24 at 7:00am. @[facility]. Order and ov note faxed. Letter and lab slip mailed. * Sonia Chilo - 09/19/2024 11:57 AM EST Order, demos and ov note have been faxed to [facility] scheduling to schedule pt for a Cardiac MRI scan. Waiting for appointment info. documented in this encounter Plan of Treatment Not on file documented as of this encounter Visit Diagnoses Not on filedocumented in this encounter Care Teams Foreclosure Clerk Relationship Specialty Start Date End Date Sherice John MD [address] [place] [address] PCP - General Internal Medicine 01/10/19 documented as of this encounter
--- OUTSIDE RECORDS SUMMARY | 2024-09-29 13:03 | XMS_ITS | Clinical Summary ---
Author Organization [employer] Address [address] [facility] 7[address] [place] [address] Care Team Providers Care Finished Cloth Examiner Name Role Phone Sherice John MD Primary Care Provider [phone] Allergies Active Allergy Reactions Criticality Noted Date Comments Hydromorphone 07/11/2022 Patient has confusion on this medication. Sulfa Antibiotics Rash Low 07/11/2022 Medications SUMAtriptan (Imitrex) 100 MG tablet 1 tablet. 019 Active calcium carbonate (Os-Devin) 1250 (500 Ca) MG tablet 1 tablet in the morning. Active Multiple Vitamins-Iron (MULTIPLE VITAMIN/IRON PO) Take 1 tablet by mouth in the morning. Active metroNIDAZOLE (Metrocream) 0.75 % cream APPLY TOPICALLY TO FACE TWICE DAILY 022 Active levalbuterol (Xopenex) 0.63 MG/3ML nebulizer solution Take 3 mL by nebulization every 4 (four) hours if needed for wheezing. 72 mL 2 023 Active levalbuterol (Xopenex) 45 MCG/ACT inhaler Inhale 1 puff every 4 (four) hours if needed for wheezing. 15 g 1 023 Active sertraline (Zoloft) 100 MG tablet Take 1.5 tablets (150 mg) by mouth in the morning. 135 tablet 3 023 Active lansoprazole (Prevacid) [address] capsuleIndicati ons:Gastroesoph ageal reflux disease, unspecified whether esophagitis present Take 1 capsule (30 mg) by mouth before breakfast. 30 capsule 11 023 Active dilTIAZem CD (Cardizem CD) 120 MG 24 hr capsule Take 120 mg by mouth Once per day. Per cardiology Active oxygen (O2) gas by Other route. Active Cholecalciferol (VITAMIN D3 PO) Take by mouth. Active Eliquis 5 MG tablet TAKE 1 TABLET BY MOUTH TWICE A DAY 180 tablet 3 Active denosumab (Prolia) 60 MG/ML solution prefilled syringe INJECT 1 SYRINGE EVERY 6 MONTHS 1 mL 3 Active Additional Information Patient not taking.Reported on 09/23/2024 azelaic acid (Finacea) 15 % gel APPLY A THIN LAYER TO AFFECTED AREAS DIRECTED. Active rosuvastatin (Crestor) 20 MG tablet TAKE 1 TABLET BY MOUTH EVERY DAY 90 tablet 3 Active ALPRAZolam (Xanax) 0.5 MG tablet TAKE 1/2 TO 1 TABLET DAILY NEEDED FOR ANXIETY Active mexiletine (Mexitil) 150 MG capsule Take 150 mg by mouth 2 times daily. Active sertraline (Zoloft) 50 MG tablet TAKE 1 TABLET BY MOUTH EVERY DAY WITH 100MG Active tiotropium (Spiriva Respimat) 2.5 MCG/ACT inhalerIndicati ons:Moderate persistent asthma without complication INHALE 2 PUFFS IN THE MORNING 4 each 11 024 2024 Active gabapentin (Neurontin) 400 MG capsuleIndicati ons:Primary insomnia Take 3 capsules (1,200 mg) by mouth at bedtime. 270 capsule 3 024 2024 Active acetaminophen (Tylenol 8 Hour) 650 MG ER tablet Take 1,300 mg by mouth every 8 (eight) hours if needed. Active benzonatate (Tessalon) 200 MG capsule TAKE 1 CAPSULE BY MOUTH TWICE A DAY NEEDED COUGH Active traZODone (Desyrel) 50 MG tablet Take 50 mg by mouth if needed at bedtime for sleep. Active Restasis 0.05 % ophthalmic emulsionIndicat ions:Keratitis sicca, bilateral ADMINISTER 1 DROP INTO BOTH EYES 2 TIMES DAILY. 180 mL 3 Active furosemide (Lasix) 40 MG tablet Take 40 mg by mouth Once per day. Active lisinopril 20 MG tabletIndicatio ns:Essential hypertension TAKE 1 TABLET BY MOUTH ONCE A DAY 180 tablet 1 025 Active BENZONATATE PO Take by mouth as needed Active raNITIdine HCl (RANITIDINE 75 PO) Take 150 mg by mouth. 018 Active empagliflozin (Jardiance) 10 MG Take 10 mg by mouth in the morning. 025 Active fluticasone (Flonase) 50 MCG/ACT nasal spray 2 SPRAY INTRANASALLY DAILY FOR 30 DAYS Active lisinopril 20 MG tabletIndicatio ns:Essential hypertension TAKE 1 TABLET BY MOUTH TWICE A DAY 180 tablet 1 024 2024 Discontinued(R eorder (will not trigger notification to Pharmacy)) levalbuterol (Xopenex) 45 MCG/ACT inhaler Inhale into the lungs every 4 hours as needed. 2024 Discontinued(D uplicate order (will not trigger notification to Pharmacy)) Active Problems Problem Noted Date Diagnosed Date Driving safety issue 06/25/2024 Assessment & Plan (06/25/2024 8:35 PM EST): See HPI, referral to community health resource team to assist pt and especially link with transportation to medical appointments so she doesn't have to drive herself. Keep followup appointments with specialists and PCP as scheduled. Advised not to drive until she has met with her specialists to discuss her symptoms/concerns regarding fogginess/confusion/distraction that has occurred at times while driving -- importance of this emphasized for her own and other's safety. agrees to this plan and has no further questions or concerns at visit conclusion. Open leg wound, left, initial encounter 04/29/20 24 Overview (04/29/2024): Tiny, on video visit appears to be less than 1 cm diameter, no exudate, very shallow appearing ulceration. No surrounding erythema and no flutuance appreciated on video visit directing patient to press all around the area. States is tender but not currently painful. Is on a higher dose of lasix per direction of her pulm just for the next 3 days, (60 mg daily for 3 days) and then is to recheck with pulm if no improvement in her feet feeling a bit tight in her shoes. States just took the first higher dose (usually takes 40 mg daily) and thinks this has already started helping her feet. No pitting edema seen on video visit with provider guided pt exam pressing at top of each foot and ankle. Okay to continue topical antibiotic/gauze/bandaid and start use of graduated compression stockings recommended, discussed use in detail and sources for comfortable compression stockings with medium compression that she will likely actually wear and be able to don and doff herself. agrees to plan and will f/up with both her pulm and station installer , continue daily weights and report if greater than 2 lb wt gain day to day or 5 lbs in one week. Self monitor closely for any new open wounds or bleeding as she is taking Eliquis 5 mg PO BID d/t hx PE and pulm HTN, ?cardiomyopathy, ? CHF. Recommended schedule her pulm and station installer followup visits soon and agrees to do so. Underimmunized 04/29/2024 Overview (04/29/2024): appears to be due for her Zoster, RSV, seasonal influenza and new COVID vaccines. Encouraged to discuss with her pulm if any concerns but states he actually recommended she get current on her respiratory vaccines too but she just hasn't done. Encouraged to schedule these jhon and agrees to plan. High risk for respiratory complications given her multiple chronic health conditions. Hip arthritis 03/13/2024 Diastolic dysfunction 03/13/2024 Subconjunctival hemorrhage of right eye 03/26/20 Overview (03/26/2023): 03/07/[address] Torres (optho), Dx with subconjunctival hemorrhage. No trauma, no loss/change of vision. On Eliquis - hx of unprovoked pulmonary emboli. Will check labs. Continue eye drops discussed with Dr. Torres. Reviewed when to call clinic, when to go to ER. Class 1 obesity 03/16/2023 PVC (premature ventricular contraction) 11/08/19 Pulmonary embolism 10/25/2022 Carpal tunnel syndrome on both sides 07/24/2022 Essential hypertension 07/11/2022 Assessment & Plan (04/29/2024 8:07 PM EDT): Encouraged to keep current with her solutions architect and station installer given her multple complex pulm and cardio health diagnoses and history. Savannah's bp somewhat elevated and will self monitor bp/pulse and 02 sat daily and make/keep PCP, pulm and station installer followup visits and agrees to consult with reg outboard motorboat operator for dietary advice to help with her chronic health concerns as well as weight reduction. Agrees to keep and bring a daily dietary intake log to that RD consult. Assessment & Plan (07/24/2022 10:23 AM EST): Stable on meds High cholesterol 07/11/2022 Assessment & Plan (07/24/2022 10:25 AM EST): Labs ordered Recurrent sinusitis 07/11/2022 GERD (gastroesophageal reflux disease) Moderate persistent asthma without complication 07/11/2022 Migraine without aura and wi thout status migrainosus, not intractable 07/11/2022 Sleep apnea 07/11/2022 Overview (07/24/2022): Sees Dr. Domínguez Assessment & Plan (07/24/2022 10:21 AM EST): Using CPAP regularly Restless leg syndrome 07/11/2022 Age-related osteoporosis wit hout current pathological fracture 07/11/2022 Assessment & Plan (07/24/2022 10:25 AM EST): Pt will check on when next prolia is due. Vertigo 07/11/2022 Generalized anxiety disorder 07/11/2022 Overview (07/24/2022): Psych prescriber: Rabia Gillespie; Therapist Rc Assessment & Plan (07/24/2022 10:27 AM EST): Doing well weaning zoloft. Primary insomnia 07/11/2022 Nephrolithiasis 07/11/2022 Other chronic pain 07/11/2022 Pain in right knee 07/11/2022 Seasonal allergies 07/11/2022 Cardiac microvascular disease 07/11/2022 Glaucoma suspect of both eyes 07/11/2022 Bradycardia 03/13/2022 Shortness of breath 03/13/2022 Palpitations 08/09/2020 Overview (03/26/2023): +symptomatic PVCs on ROCT Last Assessment & Plan: Symptomatic PVCs which have been effectively suppressed with bisoprolol. I do not believe these are contributing to her clinical presentation at this time. Allergic rhinitis 03/25/2019 Anxiety 03/25/2019 Aortic atherosclerosis 03/25/2019 CAD (coronary artery disease) 03/25/2019 Dilated cardiomyopathy 03/25/2019 Overview (03/26/2023): 11/2018 CAIT: severly dilated Left atrium Cataract 03/25/2019 Overview (03/26/2023): Bilateral Bilateral Depression 03/25/2019 Mitral valve regurgitation 03/25/2019 Overview (03/26/2023): 11/2018 CAIT: Mild 11/2018 CAIT: Mild Osteoarthritis 03/25/2019 Overview (03/26/2023): Knees Knees Osteoporosis 03/25/2019 Total knee replacement status 03/25/2019 Overview (03/26/2023): 2018 Left 2018 Left Vitamin D deficiency 03/25/2019 Pulmonary hypertension 02/07/2019 Overview (03/26/2023): Followed by cardiolgoy 11/22/18 CAIT: Mild Last Assessment & Plan: Pulmonary hypertension which could be related to obstructive sleep apnea although also need to consider recent pulmonary embolism/question of chronic PE or heart failure with preserved ejection fraction. In the past have been hesitant to start diuretics as her right heart catheterization demonstrated a wedge pressure of 10. However the study was over 4 years ago and given the ongoing nature of her symptoms I recommended we start with Lasix 20 mg a day. She will plan to take this in the morning and assess her response and in 4 months. This can be increased to 40 mg a day if she experiences symptomatic improvement. I will also ask for a BNP level to be measured as the prior level was in the context of acute PE. I will follow-up on the results of her echocardiogram from [facility] and discussed with her if there are actionable findings. I did encourage her to follow-up with her new solutions architect to determine if there are further investigations or treatment warranted for pulmonary hypertension. 11/22/18 CAIT: Mild Assessment & Plan (06/25/2024 8:30 PM EST): Followed by cardiology and also pulm HTN specialist in [place] Dr. Tangela Deleon. See HPI, encouraged to f/up both with her station installer who is prescribing her torsemide and with her pulm HTN specialist. No SOB had recent labs ordered by specialist and has f/up with that office (cardiology) this Sunday, states also had recent echo will be addressed then. O2 sat tonight on 2 l oxygen is 96% (states wears mostly at night), 91% on Room Air. No current dizziness, lightheadedness or foggy thinking per pt. Emphasized importance of safety, not driving, until f/up with her specialists if the symptoms of distraction/fogginess/confusion recur/persist and referral order also entered for assistance of community health resource team which is agreeable with - especially if can help with transportation to medical appointments so she does not need to drive herself. Keep f/up appt with Dr. John as scheduled Jun 30 and agrees to this plan also. Mild persistent asthma 02/07/2019 Resolved Problems Problem Noted Date Diagnosed Date Resolved Date Pneumonia of left lower lobe due to infectious organism 10/26/2022 03/26/2023 Overview (10/26/2022): Dx with LLL pneumonia on Xray at Urgent Care on 10/12/22. Rx Augmentin. Assessment & Plan (10/26/2022 11:52 AM EST): Symptoms improved, breathing well. Recommended follow up with PCP in about a month and repeat xray to ensure resolution of pneumonia. Reviewed expected course of improvement and when to call clinic. Reviewed supportive care, adequate hydration, rest, nutrition, etc. Reminded to complete full course of antibiotics even if feeling well. Moderate persistent asthma w ith acute exacerbation 07/11/2022 10/23/2022 Overview (07/24/2022): Sees Dr. Domínguez Assessment & Plan (07/24/2022 10:22 AM EST): Recent exacerbation with infection; still lingering cough will do a prednsione taper and pt will call pulmonary if persists. Age-related nuclear cataract of both eyes 07/11/2022 11/15/2022 Encounters Date Type Department Care Team Description 09/23/2024 12:00 PM EST Office Visit [address] [address] Sherice John MD Syncope, unspecified syncope type (Primary Dx) 09/23/2024 Orders Only [facility] Information Management [address] [place] [address] Sherice John MD 09/23/[address] [address] Sherice John MD Medical Records request 09/02/[address] [address] Sherice John MD Essential hypertension 08/26/[address] [address] Sherice John MD Strange episode 08/06/[address] [facility] [address] [place] [address] JustinteParris, OD Keratitis sicca, bilateral 07/09/[address] [facility] MED[facility] [address] [place] [address] Sherice John MD Referral 07/09/[address] [facility] [address] [place] [address] Sherice John MD Labs Only 06/30/2024 9:[address] [facility] [address] [place] [address] Sherice John MD Pulmonary hypertension (CMS/HCC) (Primary Dx); Essential hypertension; Generalized anxiety disorder; Multiple subsegmental pulmonary emboli without acute cor pulmonale (CMS/HCC); Confusion and disorientation 06/29/2024 Travel from Last 3 Months Immunizations Name Administration Dates Next Due Influenza High-dose Quadriva lent Preservative Free 06/27/2022 Influenza, High Dose Seasona l, Preservative Free 05/11/2021,06/07/2020 Influenza, IIV3, injectable 07/14/2019,1 08/21/2017,08/24/2017,06/05 Influenza, trivalent, adjuvanted 05/15/2024,06/21 Moderna Covid-19 Vaccine 12+ 12/04/2023, 06/10/2021,11/12/2020,10/15 Pfizer Covid-19 Vaccine 12+ 12/02/2021,1 ,11/05/2020,10/15 Pfizer Covid-19 Vaccine 12+ eddy-sucrose (Huertas Cap) 12/02/2021 Pneumococcal Conjugate PCV 13 07/14/2019 Pneumococcal Polysaccharide PPSV23 08/24/2017 Tdap 05/10/2012 Family History Medical History Relation Name Comments Heart disease Father Restless legs syndrome Father Dementia Mother Heart disease Mother Glaucoma Neg Hx Macular degeneration Neg Hx Relation Name Status Comments Father Mother Social History Tobacco Use Types Packs/Day Years Used Date Smoking Tobacco: Never Passive Smoke Exposure: Past Smokeless Tobacco: Never Tobacco Cessation:Counseling Given: Not Answered Alcohol Use Standard Drinks/Week Comments Yes 0 [...] Orientation Straight 10/04/2022 3: 13 PM EST Last Filed Vital Signs Vital Sign Reading [...] Mass Index 30.21 09/23/2024 12:26 PM EST Plan of Treatment Upcoming Encounters Date Type Department Care Team (Late st Contact Info) Description 11/20/2024 11:00 AM EDT Office Visit [facility] [address] [place] [address] Parris Torres, YONI [address] [place] [address] 12/25/2024 10:30 AM EDT Office Visit [facility] [address] [place] [address] Sherice John MD [address] [place] [address] Health Maintenance Due Date Last Done Comments CT Colonography 1952 FIT DNA/Cologuard 1952 FIT 1952 FOBT 1952 Sigmoidoscopy 1952 Alcohol/Substance Use Screening 1964 Zoster Vaccines (1 of 2) 2002 RSV Patients and Patients Aged 60 years or older (1 - Risk 60-74 years 1-dose series) 2012 HPV/Cotest 01/31/2021 DTaP/Tdap/Td Vaccines (2 - Td or Tdap) 05/10/2022 05/10/2012 Depression Screening 12/03/2024 12/04/2023, 12/04/19 24 SDOH Screening 12/03/2024 12/04/2023 Tobacco Screening 09/23/2025 09/23/2024 Mammogram 12/31/2025 01/01/2024, 12/18, 01/20/2022, Additional history exists Lipid Panel 09/07/2027 09/07/2022, 11/08/2021 Colonoscopy 05/06/2034 05/06/2024, 06/0 04/2014, 12/26/2013 Colorectal Cancer Screening 05/06/2034 Hepatitis C Screening Completed 08/20/2011 Pap Smear Discontinued 02/01/2016 Pneumococcal Vaccine: 50+ Years Completed 07/14/2019, 08/24/2017 Influenza Vaccine Completed 05/15/2024, , 06/27/2022, Additional history exists COVID-19 Vaccine Completed 07/25/2024, , 05/18/2023, Additional [...] patient's age to complete this topic Meningococcal Vaccine Aged Out No eliceo david eligible based on patient's age to complete this topic RSV under 20 months Aged Out No longe r eligible based on patient's age to complete this topic Rotavirus Vaccines Aged Out No longer eligible based on patient's age to complete this topic Procedures Procedure Name Priority Date/Time Associated Diagnosis Comments AMB REFERRAL TO OPHTHALMOLOGY Routine 07/09/2024 Ptosis of both eyelids HM COLONOSCOPY Routine 05/06/2024 1:27 PM EDT BI MAMMOGRAM SCREENING TOMOSYNTHESIS BILATERAL Routine 01/01/2024 2:48 PM EDT LIPID PANEL, STANDARD Routine 09/07/2022 12:08 PM EST High cholesterol PAP SMEAR Routine 02/01/2016 12:00 AM EDT HEPATITIS C ANTIBODY (EXTERNAL RESULTS ONLY) Routine 08/20/2011 3:22 PM EST from Last 3 Months or Most Recently Relevant to Health Maintenance Results * Referral to Ophthalmology (07/09/2024) us Parris Torres OD OUTPATIENT REFERRAL ORDERABLES F inal Result * Hm Colonoscopy (05/06/2024 1:27 PM EDT) us Sherice John MD HEALTH MAINTENANCE Final Result * BI Mammogram Screening Tomosynthesis Bilateral (01/01/2024 2:48 PM EDT) Anatomical Region Laterality Modality Breast Bilateral Mammography us Sherice John MD IMG BI PROCEDURES Final Result * Lipid panel (09/07/2022 12:08 PM EST) Cholesterol, Total 164 (<200) MG/DL [facility] Triglyceride (mg/dL) in Serum/Plasma 83 (<150) MG/DL [facility] HDL Cholesterol 75 (>39) MG/DL [facility] LDL Cholesterol, Calculated 72 (0-130) MG/DL [facility] Non HDL Chol. (LDL+VLDL) 89 (<160) MG/DL [facility] Comment: Testing performed or reported by [facility], a Service of [facility], [address] [place] [id number] Lulu Masters MD, Technical Internship [facility]# [id number] Blood Venous blood specimen / Unknown 09/07/2022 12:08 PM EST 09/07/2022 12:10 PM EST Sherice John MD LAB BLOOD ORDERABLES Final Resul t [facility] [address] [address] * Pap Smear (02/01/2016 12:00 AM EDT) Swab Historical Provider LAB CYTOLOGY ORDERABLES F inal Result * Hepatitis C Antibody (08/20/2011 3:22 PM EST) Hepatitis C Antibody Nonreactive Blood 08/20/2011 3:22 PM EST Historical Provider POINT OF CARE TEST ENTER/ EDIT ORDERABLES Final Result from Last 3 Months or Most Recently Relevant to Health Maintenance Insurance [facility] [employer] MEDICARE Care Teams Finished Cloth Examiner Relationship Specialty Start Date End Date Sherice John MD [address] [place] [address] PCP - General Internal Medicine 08/08/22
--- OUTSIDE RECORDS SUMMARY | 2024-09-29 13:03 | XMS_ITS | Encounter Summary ---
Author Organization [employer] Address [address] [facility] [address] [place] [address] Care Team Providers Care Package Worker Name Role Phone Sherice John MD Primary Care Provider [phone] Encounter Details Date Type Department Care Team (Late st Contact Info) Description 08/25/2023 Orders Only [facility] Information Management [address] [place] [address] Sherice John MD [address] [place] [address] Social History Tobacco Use Types Packs/Day Years [...] Description 11/20/2024 11:00 AM EDT Office Visit [facility] OPT[facility]ET[facility] [address] [place] [address] Parris Torres, OD [address] [place] [address] 12/25/2024 10:30 AM EDT Office Visit [facility] MEDICAL [address] [place] [address] Sherice John MD [address] [place] [address] documented as of this encounter Procedures Procedure Name Priority Date/Time Associated Diagnosis Comments XR CHEST 2 VIEWS Routine 08/17/2023 documented in this encounter Results * XR Chest 2 Views (08/17/2023) Anatomical Region Laterality Modality Chest Radiographic Tami ging Sherice John MD IMG XR PROCEDURES Edited Result - Final documented in this encounter Visit Diagnoses Not on filedocumented in this encounter Care Teams Package Worker Relationship Specialty Start Date End Date Sherice John MD [address] [place] [address] PCP - General Internal Medicine 08/08/22 documented as of this encounter
--- OUTSIDE RECORDS SUMMARY | 2024-09-29 13:03 | XMS_ITS | Encounter Summary ---
Author Organization [employer] Address [address] [facility] [address] [place] [address] Care Team Providers Care Country Singer Name Role Phone Sherice John MD Primary Care Provider [phone] Encounter Details Date Type Department Care Team (Late st Contact Info) Description 09/23/2024 Orders Only [place] [facility] Information Management [address] [place] [address] Sherice John MD [address] [place] [address] Social History Tobacco Use Types Packs/Day Years [...] Description 11/20/2024 11:00 AM EDT Office Visit [facility] OPTOMET[facility] [address] [place] [address] Parris Torres, OD [address] [place] [address] 12/25/2024 10:30 AM EDT Office Visit [facility] MEDICAL [address] [place] [address] Sherice John MD [address] [place] [id number] documented as of this encounter Procedures Procedure Name Priority Date/Time Associated Diagnosis Comments HM COLONOSCOPY Routine 05/06/2024 1:27 PM EDT documented in this encounter Results * Hm Colonoscopy (05/06/2024 1:27 PM EDT) Sherice John MD HEALTH MAINTENANCE Final Result documented in this encounter Visit Diagnoses Not on filedocumented in this encounter Care Teams Country Singer Relationship Specialty Start Date End Date Sherice John MD [address] [place] [id number] PCP - General Internal Medicine 08/08/22 documented as of this encounter
--- OUTSIDE RECORDS SUMMARY | 2024-09-29 13:03 | XMS_ITS | Encounter Summary ---
Author Organization [employer] Address [address] [place] [address] Care Team Providers Care Oil Burner Name Role Phone Pauline John MD Primary Care Provider [phone] Reason for Visit * Reason Onset Date Comments Medication Problem 05/25/2023 Encounter Details Date Type Department Care Team (Late st Contact Info) Description 05/25/2023 Telephone [facility] MEDICAL [address] [place] [address] Pauline John MD [address] [place] [address] Medication Problem Social History Tobacco Use Types Packs/Day Years Used Date Smoking Tobacco: Never Passive Smoke Exposure: Past Smokeless Tobacco: Never Alcohol Use Standard Drinks/Week Comments Yes 0 (1 standard drink = 0.6 oz pur e alcohol) Housing Stability Answer Date Recorded What is your housing situation today? I have magdavesta hoskins 05/28/[address] you li ve. Do you have problems with any of the following? None of the above 05/28/2023 Food Insecurity Answer Date Recorded Within the past 12 months, y ou worried that your food would run out before you got money to buy more: Sometimes True 2022 Within the past 12 months,th e food you bought just didn't last and you didn't have enough money to get more: Sometimes True 05/28/2023 Transportation Answer Date Recorded In the past 12 months, has l ack of transportation kept you from medical appts, meetings, work or from getting things needed for daily living? No 05/28/2023 Utilities Answer Date Recorded In the past 12 months, has t he electric, gas, oil or water company threatened to shut off services in your home? No 05/28/2023 Comments Unknown Sex and Gender Information Value Date Recorded Sex Assigned at Female 08/01/2022 12:40 PM EST Legal Sex Female 8:36 PM EDT Gender Identity Female 08/01/2022 12:40 PM EST Sexual Orientation Straight 10/04/2022 3: 13 PM EST documented as of this encounter Miscellaneous Notes * Telephone Encounter - SCOTT Yoo - 05/25/2023 11:57 AM EDT THIS MESSAGE ROUTED TO PAULINE Yanez MONDAYS NOTE IS NOT YET SIGNED PROVIDER TO ENTER AND SEND NEW RX * Telephone Encounter - Bernice Lopez - 05/25/2023 11:50 AM EDT Had a apt with [place] on Sunday she was due to change medication she is taking not seeing any prescriptions in file. documented in this encounter Plan of Treatment Upcoming Encounters Date Type Department Care Team (Late st Contact Info) Description 11/20/2024 11:00 AM EDT Office Visit [facility] OPTOMETRY [address] [place] [address] Parris Torres OD [address] [place] [address] 12/25/2024 10:30 AM EDT Office Visit [facility] MEDICAL [address] [place] [address] Pauline John MD [address] [place] [address] documented as of this encounter Visit Diagnoses Not on filedocumented in this encounter Care Teams Oil Burner Relationship Specialty Start Date End Date Pauline John MD [address] [place] [address] PCP - General Internal Medicine 08/08/22 documented as of this encounter
--- OUTSIDE RECORDS SUMMARY | 2024-09-29 13:03 | XMS_ITS | Data Portability ---
Author Organization [place] - [facility], Allergy Address [address] [address] Care Team Providers Care Voltage Inspector Name Role Phone CARLOS CHILDERS Primary Care Provider Assessment Encounter Date Assessment [...] eural hearing loss of bilatera l ears 027737608 Active 2019 Sensorin eural hearing loss, bilatera l; Note: Date Diagnose d: 0 2:40 PM (H90.3) Not Available [facility] 4 02:45:12 Disorder of right Eustachi an tube 38889196885 58566 Active 2019 Other specifie d disorder s of Eustachi an tube, right ear; Note: Date Diagnose d: 04/20/2020 4:01 PM (H69.81) Not Available [facility] 4 02:45:15 Impacted cerumen in right ear 70009287211 13782 Active 2022 Impacted cerumen, right ear; Note: Date Diagnose d: 3 11:11 AM (H61.21) Not Available [facility] 4 02:45:12 Acute serous otitis media of right ear 03025168824 40210 Completed 201903/21/2024 Acute serous otitis media, right ear; Note: Date Diagnose d: 0 2:34 PM (H65.01) Not Available [facility] 4 02:45:08 Posterio r rhinorrh ea 36576378 Active 2017 Postnasa l drip; Note: Date Diagnose d: 12/25/2017 2:12 PM (R09.82) Not Available [facility] 4 02:45:11 Allergic rhinitis 13258597 Active 2017 Allergic rhinitis , unspecif ied; Note: Date Diagnose d: 12/25/2017 2:12 PM (J30.9) Not Available [facility] 4 02:45:10 Cough 02212481 Active 2018 Cough; Note: Date Diagnose d: 09/24/2018 11:18 AM (R05) Not Available [facility] 4 02:45:09 Cough variant asthma 062483123 Active 2018 Cough variant asthma; Note: Date Diagnose d: 11/19/2018 11:34 AM (J45.991 ) Not Available [facility] 4 02:45:09 Impacted cerumen of bilatera l ears 04813970862 00195 Active 2018 Impacted cerumen, bilatera l; Note: Date Diagnose d: 09/24/2018 11:18 AM (H61.23) Not Available [facility] 4 02:45:10 Headache 39388130 Active 2017 Headache ; Note: Date Diagnose d: 12/25/2017 2:12 PM (R51) Not Available [facility] 4 02:45:09 Otalgia of right ear 7405000695 Active 2018 Otalgia, right ear; Note: Date Diagnose d: 09/24/2018 12:52 PM (H92.01) Not Available [facility] 4 02:45:14 Obstruct demarco sleep apnea syndrome 14563239 Active 2018 Obstruct demarco sleep apnea (adult) (pediatr ic); Note: Date Diagnose d: 9 11:20 AM (G47.33) Not Available [facility] 4 02:45:14 Itching of skin 157921741 Active 2023 LEE GENAO PA-C [address] [place] [address],[facility] [address], [place], [address] , [facility] - [facility] 4 09:46:48 Problem Notes None recorded. Medical Equipment None Reported. Allergies Allergen ID Allergen Name Allergen Category Reaction Reaction Severity Criticality Documentation Date Start Date Code Code System Note Provider Name and Address Organization Details Recorded Time 04264 Substance with sulfonami de structure and antibacte rial mechanism of action (substanc e) medicatio n other Not available Not available 01/01/2024 [id number] SNOMED React ion: unkno wn, unspe cifie d;; Not Available [facility] 4 00:49:45 Medications Name Sig Start Date [...] mg tablet 02/02 completed Medicati on ID: [id number] D uration Value: 30 Brand Name: amlodipi [...] 5 mg tablet active Medicati on ID: [id number] B rand Name: bisoprol ol fumarate Send Method: E-Prescr ibed Sub s Allowed: subs OK Medic ationGen ericName : bisoprol ol fumarate Not Available Not Available Not Available alprazola m 0.5 mg tablet TAKE 1/2 TO 1 TABLET DAILY NEEDED FOR ANXIETY active Not Available Not Available No t Available gabapenti n 800 mg tablet 02/02 completed Medicati on ID: [id number] D uration Value: 30 Brand Name: gabapent in Send Method: E-Prescr ibed Sub s Allowed: subs OK Speci al Instruct ion: take 1 tablet by mouth at bedtime Medicati onGeneri cName: gabapent in Not Available Not Available Not Available meclizine 25 mg tablet 11/13 completed Medicati on ID: [id number] B rand Name: meclizin e Send Method: [...] mg tablet 02/02 completed Medicati on ID: [id number] D uration Value: 30 Brand Name: zolpidem [...] 24 hr 2020 active Medicati on ID: [id number] B rand Name: metoprol ol succinat e [...] mg tablet 2020 active Medicati on ID: [id number] B rand Name: zolpidem Send Method: E-Prescr ibed Sub s Allowed: subs OK Medic ationGen ericName : zolpidem Not Available Not Available Not Available fluticaso ne propionat e 50 mcg/actua tion nasal spray,david pension 2020 active Medicati on ID: [id number] B rand Name: fluticas one propiona te [...] sustained -release 11/13 completed Medicati on ID: [id number] B rand Name: bupropio n HCl Send [...] aerosol inhaler 2020 active Medicati on ID: [id number] B rand Name: Flovent HFA Send Method: E-Prescr ibed Sub s Allowed: subs OK Medic ationGen ericName : Flovent HFA Not Available Not Available Not Available Flovent HFA 220 mcg/actua tion aerosol inhaler 11/13 completed Medicati on ID: [id number] B rand Name: Flovent HFA Send Method: [...] in dose pack active Medicati on ID: [id number] B rand Name: Eliquis DVT-PE Treat 30D [...] Updated DateTime 05/20/2024 162.56 cm 30 kg/m2 92863.66 g Ruperto Della [place] - [facility] 05/20/2024 09:37:03 Social History None recorded. Functional Status None recorded. Mental Status None recorded. Family History Nothing Reported. Medical History No medical history recorded. Gynecological HistoryNo gynecological history recorded. Obstetrics History GPAL:G 0 P 0 0 0 0 Past Encounters Encounter ID Performer Location Encounter Start Date Encounter Closed Date Diagnosis/Indication Diagnosis SNOMED-CT Code Diagnosis ICD10 Code Diagnosis Note [id number] HAYDEN IRBY MD [facility] [id number] [place] [address] 05/20/2024 09:25:09 05/20/2024 09:48:11 Itching of skin [id number] L29.9 Health Concerns Section Related Observation LastModified by Organization Detai ls LastModified Time None Recorded Concern Status LastModified by Organization Details LastModified Time None Recorded Advance Directives Directive None Recorded Payers Encounter Date Sequence Insurance Name Policy Number Policy Adan Covered Member ID Adan Member ID Guarantor Name 05/20/2024 1 [place]ICARE [place] NATIONAL [employer] Mary Delgado [id number] Mary Delgado 05/20/2024 2 [facility] INDEMNITY PLAN - [facility] [id number] Mary Delgado [id number] Mary Delgado Notes Date Note Type Note Provider Name and Address Organization Details Recorded Time 05/20/2024 text/html 74 year old female presents today for an ear cleaning.No specific concerns today. She does have some itching at the ear canal opening. No drainage or pain. HAYDEN BEARDEN MD [address] [place] [address], [phone], [facility] - [facility] 05/20/2024 10:12:08 OBGyn Episode No OBEpisode recorded.
--- OUTSIDE RECORDS SUMMARY | 2024-09-29 13:03 | XMS_ITS | Encounter Summary ---
Author Organization [employer] Address [address] [place] [address] [address] [place] [address] Care Team Providers Care Metal Coater Operator Name Role Phone Sherice John MD Primary Care Provider [phone] Reason for Visit * Reason Onset Date Comments Rx needs clairification 04/22/2024 Gabapent in Rx needs clarification Encounter Details Date Type Department Care Team (Late st Contact Info) Description 04/22/2024 Refill [facility] MED[facility] [address] [place] [address] Sherice John MD [address] [place] [address] Primary insomnia Social History Tobacco Use Types Packs/Day Years [...] the past 12 months, has t he [employer], oil or water [employer] threatened to shut off services in your [...] * Telephone Encounter - SCOTT Yoo - 04/23/2024 8:13 AM EDT Sig: Take 3 capsules (1,200 mg) by mouth at bedtime. TAKE 2 CAPSULES BY MOUTH EVERY DAY AT BEDTIME Please clarify sig and resend RX documented in this encounter Plan of Treatment Upcoming Encounters Date Type Department Care Team (Late st Contact Info) Description 11/20/2024 11:00 AM EDT Office Visit [facility] OPTOMETRY [address] [place] [address] Parris Torres OD [address] [place] [address] 12/25/2024 10:30 AM EDT Office Visit [facility] MEDICAL [address] [place] [address] Sherice John MD [address] [place] [address] documented as of this encounter Visit Diagnoses Diagnosis Primary insomnia Persistent disorder of initiating or maintaining sleep documented in this encounter Care Teams Metal Coater Operator Relationship Specialty Start Date End Date Sherice John MD [address] [place] [address] PCP - General Internal Medicine 08/08/22 documented as of this encounter
--- OUTSIDE RECORDS SUMMARY | 2024-09-29 13:03 | XMS_ITS | Encounter Summary ---
Author Organization [employer] Address [address] [facility] [address] [place] [address] Care Team Providers Care Sewer Contractor Name Role Phone Sherice John MD Primary Care Provider [phone] Encounter Details Date Type Department Care Team (Late st Contact Info) Description 12/07/2023 Orders Only [facility] [address] [place] [address] Sherice John MD [address] [place] [address] Social History Tobacco Use Types Packs/Day Years [...] Description 11/20/2024 11:00 AM EDT Office Visit [facility] OPTOMETRY [address] [place] [address] Parris Torres, OD [address] [place] [address] 12/25/2024 10:30 AM EDT Office Visit [facility] MEDICAL [address] [place] [address] Sherice John MD [address] [place] [address] documented as of this encounter Procedures Procedure Name Priority Date/Time Associated Diagnosis Comments CBC WITH AUTO DIFFERENTIAL Routine 12/06/2023 9:50 AM EDT documented in this encounter Results * CBC auto differential (12/06/2023 9:50 AM EDT) Blood Venous blood specimen / Unknown us Sherice John MD LAB BLOOD ORDERABLES Final Resul t documented in this encounter Visit Diagnoses Not on filedocumented in this encounter Care Teams Sewer Contractor Relationship Specialty Start Date End Date Sherice John MD [address] [place] [address] PCP - General Internal Medicine 08/08/22 documented as of this encounter
--- OUTSIDE RECORDS SUMMARY | 2024-09-29 13:03 | XMS_ITS | Encounter Summary ---
Author Organization [facility] Address [address] [place] [address] Care Team Providers Care Presser First Name Role Phone Sherice John MD Primary Care Provider [phone] Reason for Referral * Imaging (Routine) - Closed Specialty Diagnoses / Procedures Referred By Contac t Referred To Contact Diagnoses Dilated cardiomyopathy (CMS/HCC) Procedures MR Cardiac Morphology and Function wo and w Contrast Racheal Sears MD [address] [place] [address] [place] [address] Phone: tel: fax: External Performed Referral ID Status Reason Start Date Expiration Date Visits Re quested Visits Authorized [id number] Closed 09/05/2024 09/05/2025 1 1 Reason for Visit * Reason Comments Follow-up Encounter Details Date Type Department Care Team (Latest Contact Info) Description 09/05/2024 11:30 AM EST Office Visit [facility] [address] [place] [id number] Racheal Sears MD [address] [place] [address] [address] [place] [address] Hypertension, unspecified type (Primary Dx); Dilated cardiomyopathy (CMS/HCC); Chronic diastolic heart failure (CMS/HCC) Social History Tobacco Use Types Packs/Day Years [...] on file documented as of this encounter Last Filed [...] Mass Index 31.04 09/05/2024 11:29 AM EST documented in this encounter Ordered Prescriptions Prescription Sig Dispense Quantity Refills Last Filled Start Date End Date empagliflozin (JARDIANCE) 10 mg tablet Take 1 tablet (10 mg total) by mouth 1 (one) time each day in the morning. 30 tablet 11 09/05/2024 documented in this encounter Progress Notes * Racheal Sears MD - 09/08/2024 2:03 PM ESTAssociated Problem(s): Chronic diastolic heart failure (CMS/HCC) HfpEF with improved symptoms on adjusted diuretic [...] disease which can be missed on echocardiogram. * Racheal Sears MD - 09/05/2024 11:30 AM EST Images from the original note were not included. ADDENDUM Pre operative cardiac evaluation is being considered for right hip replacement with Dr. Reyes on 11/17/24. Based on my evaluation on 09/05/24, she has chronic shortness of breath however I do not believe she has ongoing symptoms consistent with decompensated heart failure or coronary insufficiency; I estimate her perioperative cardiac risk is average and she does not require additional cardiac testing or changes to her medical therapy prior to the planned surgery. [facility] PCP: Sherice John MD HPI: Mary Delgado is a 74 y.o. old female with past medical history of obstructive sleep apnea (Dr. Deleon at [facility] restless leg syndrome and insomnia, symptomatic PVCs on Diltiazem and mexiletine ( [facility]) , systemic hypertension, dyslipidemia, history of migraines, osteoarthritis status post total left knee replacement, asthma, mild pulmonary hypertension, nonobstructive coronary arterydisease on 2018 angiogram, GERD, unprovoked PE 2022, and vitamin D deficiency. She returns today for follow-up. She reports worsened MCDONALD since around April. This was accompanied by LE edema. The edema was responsive to adjusted diuretics although torsemide made her lightheaded, I suspect this was volume depletion and since converting back to Lasix she has improved. She has not had eight gain, abdominal distention. I reveiwed her visit with pulmonary from July and her oxygen was adjusted and she was referred to the [facility] heart failure clinic. She relays to me that she spoke to the assistant in nursing and it did not seem she met criteria for their office. We discussed whether or not to pursue HF clinic. Prior cardiac testing was reviewed 1. Exercise right heart catheterization performed at [facility] on 04/09/2019 showed resting artery pressure of 2, PA pressure of 18, wedge of 10 and normal cardiac output. With exercise mean pulmonary pressure increased to 27, which pressure increased to 15 and cardiac output nearly tripled. This was considered a normal response to exercise with an exaggerated blood pressure response. 2. Cardiopulmonary stress test performed on 04/09/[address] Del Rio showed a VO2 max of 18. 3. Echocardiogram from 2023 normal EF, normal RV size/function, normal PA pressures, mild MR 4. Left heart catheterization performed on 10/24/2018 showed minimal luminal irregularities of the coronary arteries. 5. PET CT was performed at [facility] on 12/19/2018 which showed normal myocardial flow reserve and vasodilator stress test with PET imaging was normal. 6. Holter monitor from February 2022 identified frequent PVCs. These occurred 29% of the recorded time.Symptoms of shortness of breath lightheadedness and chest pain corresponded with sinus rhythm 7. Echocardiogram from outside facility dated 01/26/2023 demonstrated normal ejection fraction, dilated left atrium, mild to moderate regurgitation, estimated pulmonary pressures 35-40, normal CVP. 8. VQ scan dated 02/21/2023 no segmental perfusion defects ACTIVE MEDICATIONS: Outpatient Medications Marked as Taking for the 09/05/24 encounter (Office Visit) with Racheal Sears MD Medication Sig Dispense Refill ACETAMINOPHEN ORAL Take by mouth if needed. ALPRAZolam (NIRAVAM) 0.25 mg dispersible tablet Take 1 tablet (0.25 mg total) by mouth at bedtime as needed for sleep. Take 2 Tabs by mouth at bedtime as needed. apixaban (Eliquis) 5 mg tablet Take 1 tablet (5 mg total) by mouth 2 (two) times a day. BENZONATATE ORAL Take by mouth as needed calcium carbonate (OS-MILLA) 1,250 mg (500 mg elemental calcium) tablet Take 1 tablet by mouth daily.After a meal cholecalciferol (VITAMIN D-3) 50 mcg (2,000 unit) tablet Take 1 tablet (2,000 Units total) by mouth1 (one) time each day. cyclosporine (RESTASIS OPHT) apply 1 Drop to the eye 2 times daily denosumab (Prolia) 60 mg/mL syringe syringe Inject 60 mg into the skin Every 6 Months. dilTIAZem (CARDIZEM) 120 mg immediate release tablet Take 1 tablet (120 mg total) by mouth 1 (one) time each day. furosemide (LASIX) 40 mg tablet Take 1 tablet (40 mg total) by mouth 1 (one) time each day. 90 each1 gabapentin (NEURONTIN) 400 mg capsule Take 3 capsules (1,200 mg total) by mouth 1 (one) time each day. guaifenesin/dextromethorphan (MUCINEX DM ORAL) Take by mouth. lansoprazole (PREVACID) [address] capsule Take 1 capsule (30 mg total) by mouth 1 (one) time each day. LEVALBUTEROL HCL INHL Inhale into the lungs every 4 hours as needed. lisinopriL (PRINIVIL,ZESTRIL) 20 mg tablet Take 1 tablet (20 mg total) by mouth 1 (one) time each day. mexiletine (MEXITIL) 150 mg capsule Take 1 capsule (150 mg total) by mouth 2 (two) times a day. Oxygen Therapy (O2) gas Inhale by mouth 1 (one) time each day. Oxygen Historical (HISTORICAL OXYGEN) rosuvastatin (CRESTOR) 20 mg tablet Take 1 tablet (20 mg total) by mouth 1 (one) time each day. sertraline (ZOLOFT) 100 mg tablet Take 1.5 tablets (150 mg total) by mouth 1 (one) time each day. tiotropium (SPIRIVA) 18 mcg per inhalation capsule Inhale into the lungs daily. Inhale the contentsof one capsule through the Spiriva device every AM PAST MEDICAL HISTORY: Patient Active Problem List Diagnosis Pulmonary hypertension (CMS/HCC) Mild persistent asthma GERD (gastroesophageal reflux disease) Osteoporosis Nephrolithiasis Migraine without aura Hypertension Cataract Insomnia Restless leg syndrome Osteoarthritis Allergic rhinitis Depression CAD (coronary artery disease) Vitamin D deficiency Aortic atherosclerosis (CMS/HCC) Mitral valve regurgitation Dilated cardiomyopathy (CMS/HCC) Palpitations Bradycardia Shortness of breath PVC (premature ventricular contraction) Seasonal allergies Pulmonary embolus (CMS/HCC) Moderate persistent asthma Chronic diastolic heart failure (CMS/HCC) ALLERGIES: Allergies Allergen Reactions House Dust Hydromorphone Nausea And Vomiting Other Reaction(s): Hives/Urticaria Hydromorphone Hcl Mold Sulfa (Sulfonamide Antibiotics) Other Reaction(s): Rash/Dermatitis FAMILY HISTORY: Family History Problem Relation Name Age of Onset Dementia Mother ALS Father Other (Other: Heart Disease) Father SOCIAL HISTORY: Social History Tobacco Use Smoking status: Never Smokeless tobacco: Never Substance Use Topics Alcohol use: Yes Comment: beer/wine - 2 per wk PHYSICAL EXAM: Vitals: 09/05/24 1129 BP: 124/78 BP Location: Left arm Patient Position: Sitting BP Cuff Size: Adult Pulse: 87 SpO2: 98% Weight: 80.7 kg (178 lb) Height: 1.613 m (63.5 ) Physical Exam Constitutional: Appearance: She is obese. HENT: Head: Normocephalic and atraumatic. Mouth/Throat: Mouth: Mucous membranes are moist. Pharynx: Oropharynx is clear. Cardiovascular: Rate and Rhythm: Normal rate and regular rhythm. Pulmonary: Effort: Pulmonary effort is normal. Breath sounds: Normal breath sounds. Abdominal: General: There is no distension. Palpations: Abdomen is soft. Musculoskeletal: Cervical back: Neck supple. Skin: General: Skin is warm and dry. Capillary Refill: Capillary refill takes less than 2 seconds. Neurological: General: No focal deficit present. Mental Status: She is oriented to person, place, and time. Psychiatric: Mood and Affect: Mood normal. Behavior: Behavior normal. ASSESSMENT/PLAN: Chronic diastolic heart failure (CMS/HCC) HfpEF with improved symptoms on adjusted diuretic [...] disease which can be missed on echocardiogram. Orders Placed This Encounter Procedures Basic metabolic panel Standing Status: Future Standing Expiration Date: 09/05/2025 ECG 12 lead Order Specific Question: Reason for Exam: Answer: Hypertension, Unspec The [facility] team will continue to co-manage this patient following the plan of care as established by my initial visit and as per AHA guidelines for ongoing management and surveillance of Heart Failure This will include medication titration, initiation of appropriate medications and further titration, and diagnostic studies to manage this disease process. documented in this encounter Plan of Treatment Scheduled Orders Name Type Priority Associated Diagnoses Orde r Schedule Basic metabolic panel Lab Routine Hypertension, unspecified type 1 Occurrences starting 09/05/2024 until 09/05/2025 MR Cardiac Morphology and Function wo and w Contrast Cardiac CT/MRI Routine Dilated cardiomyopathy (CMS/HCC) Expected: 09/05/2024, Expires: 09/05/2025 documented as of this encounter Procedures Procedure Name Priority Date/Time Associated Diagnosis Comments ECG 12-LEAD Routine 09/05/2024 11:42 AM EST Hypertension, unspecified type documented in this encounter Results * ECG 12 lead (09/05/2024 11:42 AM EST) Ventricular Rate ECG 77 BPM GEMUSE Atrial Rate 77 BPM GEMUSE P-R Interval 146 ms GEMUSE QRS Duration 74 ms GEMUSE Q-T Interval 370 ms GEMUSE QTc 418 ms GEMUSE P Wave [place] 66 degrees GEMUSE R [place] 65 degrees GEMUSE T [place] 65 degrees GEMUSE ECG Interpretation Normal sinus rhythm Septal infarct , age undetermined Abnormal ECG No previous ECGs available Confirmed by RACHEAL SEARS ([id number]) on 09/08/2024 1:46:46 PM GEMUSE 09/05/2024 11:4 2 AM EST 09/08/2024 1:46 PM EST us Racheal Sears MD ECG ORDERABLES Final Result GEMUSE documented in this encounter Visit Diagnoses Diagnosis Hypertension, unspecified type- Primary Dilated cardiomyopathy (CMS/HCC) Other primary cardiomyopathies Chronic diastolic heart failure (CMS/HCC) Chronic diastolic heart failure documented in this encounter Care Teams Presser First Relationship Specialty Start Date End Date Sherice John MD [address] [place] [id number] PCP - General Internal Medicine 01/10/19 documented as of this encounter
== END 2024-09-29 11:43 | disposition home or self-care (01) ==
LOC: HO.LAB 11:42
PROVIDERS: PCP Internal Medicine; Referring Provider Internal Medicine; Visit Provider Hospitalist
DX: I50.83 High output heart failure (principal); R06.09 Other forms of dyspnea; I10 Essential (primary) hypertension
CPT/HCPCS: 36415; 80048; 82728; 82803; 83735; 83880; 84100; 85025; 85652

== ENCOUNTER 2024-11-25 11:12 | Outpatient (AMB) | payer MEDICARE, OTHER, SELFPAY ==
[2024-11-25 11:19] VITALS: BP 150/88; PULSE 73; O2SAT 95; BMI 30.1
--- NOTE | 2024-11-25 11:19 | A.OFFVIS_ITS ---
Vital Signs 11/25/24 11:19 Height 5 ft 4 in Weight 175 lb 4.28 oz BMI 30.1 BP 150/88 H Blood Pressure Location Rt brachial Position Sitting Pulse 73 Pulse Source Pulse Oximeter Pulse Oximetry (%) 95 Oxygen Delivery Method Room Air Intake Visit Reasons: pulmonary embolism Allergies hydromorphone [From Dilaudid] Allergy (Severe, Verified 11/25/24 11:28) Confusion Sulfa Drugs Allergy (Severe, Uncoded 11/25/24 11:28) Rash HPI Comments Details: The patient is a 74 year woman who has been complaining of worsening shortness of breath for the last several years. Apparently back in 2018 the patient has significant shortness of breath and was evaluated in the hospital. She did have a full cardiac evaluation in addition to a CTA. No evidence of any blood clots at that time. The patient did have an echocardiogram demonstrating pulmonary hypertension. Because her ongoing symptoms in the pulmonary hypertension she was referred to [place] for further care. There she had a level 3 cardiopulmonary exercise tolerance test. Her pulmonary pressures increased minimally without any significant evidence of significant pulmonary hypertension. She was not placed on any medicines. She also had a full pulmonary function study done at that time. It appeared that a pulmonary capacity was within normal limits. Only had a mild diffusion impairment. The patient continues to have ongoing symptoms without a clear explanation. She was also started on CPAP in the meantime. Still no improvement. Then in October she was evaluated in [place] which she had a CTA demonstrating evidence of pulmonary emboli. The patient started on Eliquis. Echocardiogram afterwards demonstrated a moderate amount of pulmonary hypertension. She does have a manager of program in that area. She is tolerating the anticoagulation well. She is still short of breath. During the visit we did go for 6 minutes walk test. We did go up an incline. The patient was visibly dyspneic and also she became hypoxic down to 88%. Not only that when she was hypoxic it was noted that she had more ectopy in some degree of bigeminy. Likely induced by the level of hypoxia. I we did try her on oxygen and 2 L did improve her oxygenation and her energy with activity. So therefore will go ahead and start the patient on oxygen as we try to continue to monitor and evaluate her for her ongoing dyspnea symptoms. In part we have to assess the possibility of underlying chronic thromboembolic disease. We will do further testing for this condition. 03/20/2023 the patient is here for a pulmonary follow-up visit. she continues to have significant dyspnea on exertion even with minimal activity. The oxygen supplementation has been helpful for her per in the meantime regarding her history of blood clots she is using her anticoagulation with good effect and she has good adherence. She did undergo a V/Q scan ruling out the possibility of chronic thromboembolic disease. She also has been using her CPAP regularly. Her machine had been adjusted and the overnight oximetry had improved. Will go ahead and repeat that again just to make sure. In addition to this we did review her cardiopulmonary exercise stop all rinse test which was a level 3 study done in [place]. 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 She also had excessive systemic hypertension during the study although the wedge pressure did not demonstrate any evidence of any left- sided heart failure that may have resulted in the pulmonary hypertension. Today we had her undergo a 6 minutes walk test and she still desaturating some although better than the last time that she was here. Still requires the oxygen specially to exercise. Patient did undergo pulmonary function studies and we personally reviewed. No significant obstructive nor restrictive disease although she has a low normal total lung capacity. The diffuse capacity is mildly decreased. 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 She did have an echocardiogram back in January which also demonstrated that her pulmonary pressures were elevated even at rest though. at this point the patient has pulmonary attention that appears to be symptomatic and would benefit from vasodilator therapy. 04/12/2023 the patient is here for pulmonary follow-up visit. Continues to have dyspnea on exertion moderate severity. The oxygen continues to be helpful. She continues on the Lasix 20 mg daily. She is not weighing herself daily at this time. We were trying to get her on sildenafil although her insurance denied it. We did send a prior approval for in order to get her on sildenafil for the pulmonary hypertension but they still denied it. We did review her level 3 CPET that she had about 4 years ago demonstrating exercise-induced pulmonary hypertension. Ultimately after that she ended up with the thromboembolic disease back in October 2022. We did perform a V/Q scan that was reassuring she will have another CTA ordered by her manager of program to make sure that there is no further evidence of thrombolic disease. The patient had an echocardiogram demonstrating elevated pulmonary pressures in addition to that had a brain natretic peptide was significantly elevated at 1900. Therefore, the appears to be some degree of ardiac strain. I do believe the patient will benefit from vaso-dilatory therapy for her pulmonary hypertension. At this point she will require a referral back to [place] to further address the degree of pulmonary hypertension with a repeat evaluation. Currently she is within the [facility] system therefore will go ahead and refer her to [facility]. In the meantime she will increase her Lasix to 40 mg daily for about 5 days and then she will weigh herself daily and monitor for any weight gain and she will take additional Lasix if her weight increases to a certain degree. I did give her instructions. She continues on the Eliquis and she is adherent to the therapy. She will follow-up with the manager of program regarding the thromboembolic disease and hyper hypercoagulable state. At this point it is considered to be unprovoked. Not clear if this is related to COVID or not. At this point she will follow up with manager of program for further evaluation. 06/01/2023 the patient is here for a pulmonary follow-up visit. She is feeling more drowsy during the daytime. She says that she tends to fall asleep during the day. She has decreased energy. She has been also noticing she is been needing additional oxygen. She is wondering if that is related. Explained to her that is unlikely to be her oxygen. Although will go ahead and check a venous gas to make sure that his CO2 is okay. the patient did follow-up with cardiology. Her brain natriuretic peptide was elevated. She is already on Lasix. These recommended talking to pulmonary. The patient understands that this is likely due to significant straining to the right ventricle. She was given a referral to [facility] but there is a long delay. We will call them again to see if they can move up her appointment. In the meantime we will increase her diuretics if her brain atretic peptide continues be elevated and also if she is continues to be symptomatic. she continues use the oxygen with activity. We did go for brief walking oximetry and she actually did fairly well and there was reassuring for her. I encouraged her to stay active. Also did review her CT scan of the chest PE protocol demonstrating interval resolution her blood clots and otherwise stable findings. 07/05/2023 the patient is here for a pulmonary follow-up visit. The patient overall is doing about the same. She is using her portable oxygen concentrator. The therapy has been effective providing her with better portability outside of the home. She continues with her diuresis. The lower extremity edema is overall better. The patient did have the visit with [facility] pulmonary hypertension clinic. They did go ahead and order a level 3 cardiopulmonary exercise study. Although it is not till September. The patient continues to be symptomatic therefore, I am going to speak to her cardiology team to see if we can at least do a right heart catheterization locally in to see if we can get all the answers that we need. If the right heart catheterization is not helpful then she can proceed have her level 3 CPAP. The patient continues to be more symptomatic so I do believe that the her CT hopefully can give us enough information to start her on vasodilators carole therapy if does what she needs. 11/26/2023 the patient is here for a pulmonary follow-up visit. She continues to struggle with her breathing. Although it has improved to some degree. She did follow-up in [place]. She was placed on diltiazem for significant PVCs. It appears to be helping. She also has been using her oxygen with activity, but less. She did undergo a level 3 CPET in [place]. Demonstrated that she does have pulmonary vascular disease with exercise suggesting exercise-induced pulmonary hypertension. The patient did have a repeat 6 minutes walk test today with me. We did go up 4 flights of stairs. The patient did desaturate down to 89% heart rate went up to about 130 beats per minute. Her hypoxia worsened after rested. She did take around 2-3 minutes to recover. Therefore, will continue providing her with the oxygen with activity specially as we psych where his to start pulmonary rehabilitation. The patient was prescribed sildenafil based on her exercise-induced pulmonary hypertension and I did speak to her specialist in [place] and they did agree with the intervention. Will hoping to start on sildenafil soon with the help improvement her vascular resistance with exercise and improve her hypoxia and tachycardia. I did answer all her question s. We did talk about her inhalers. She is going to try to simplify them at this time specially since she has not seen a significant improvement on the improved. 12/11/2023 the patient is here for a sick visit. The patient ultimately started on sildenafil. She is started slow in a low dose half a tablet initially and then increase to full tablet 3 times a day. She was started to feel ?funny?. She started noticing some leg swelling. Although she did make anything of it. And ultimately she started developing worsening shortness of breath in noticed that she was more hypoxic requiring oxygen more regularly. At that point she did call us and also called [facility]. They stopped the sildenafil the patient has started taking her additional diuretic. She still feels like she has not her baseline she is still using the oxygen more regularly. Therefore we had a firemen. The patient did have a chest x-ray which I personally reviewed without any overt heart failure or any pulmonary edema which is reassuring. Her blood work is also reassuring with normal cardiac enzymes and a normal brain atretic peptide where it was elevated before. In addition to that we did go for brief walking oximetry the patient did desaturate down to 88% on room air. Although she maintain her pulse ox around 91% for most of the ambulation. She did have a portable oxygen concentrator and she had been wearing it. At this point we did review her previous echocardiogram from January of 2023 demonstrating normal EF although it did mentioned about the [id number] mitral regurgitation. From wondering if this could have resulted in worsening heart failure from full the mitral valve. In addition to that we talked about diastolic dysfunction and also veno-occlusive disease that is less likely. For now though she will stop the vasodilators therapy will continue with diuretic therapy as she is responding well. Will go ahead and request a repeat echocardiogram and she should follow-up with cardiology. 01/10/2024 the patient is here for a pulmonary follow-up visit. Overall she is feeling better. She did have a follow-up with her electrophysiology physician who will start her on antiarrhythmic agent for persistent abnormal findings on her Holter monitor. I do not have those results. In addition to that she did have an echocardiogram demonstrating some degree of diastolic dysfunction and also mitral valve regurgitation. The patient is wondering why she has difficulty with the medication. We and talked about the possibility of veno- occlusive disease and also talked about the possibility of the heart not been able to tolerate the increase in the blood return after the vasodilators was provided. The patient does have a follow-up with [facility] pulmonary to see if they have any further recommendations regarding the exercise-induced pulmonary hypertension. She continues on the Eliquis for history of pulmonary emboli although her V/Q scan was very reassuring that she does not have any residual clots. Her volume status is better. She continues on diuretics. She is having some issues with leg swelling and pain. Will go ahead and request blood work. The patient follow-up in 4 months. If he has any worsening symptoms she will call for 04/24/2024 the patient is here for a pulmonary follow-up visit. The patient has been having some difficulties with her sleep. She is having some insomnia. She is using the trazodone 100 mg at nighttime. In addition to that sometimes she uses a small dose of Ativan. Although she can only get about 3-4 hours asleep. The patient also has gabapentin. She is going to start taking the gabapentin more regularly. She uses her more her pain issues. The patient has a CPAP. She is having some difficulties tolerating the CPAP because of her insomnia. We did download her data. Seems like her AHI is less than 1. her pressure settings are adequate. Her average pressure is 11 cm of water. Will go ahead and decrease her maximum pressure from 16-13 to minimize significant elevations in the pressures. From a respiratory status she is doing better after completing pulmonary rehabilitation. She also continues with diuresis. She does continue to have the oxygen. She did have COVID and she was using the oxygen more regularly then. I am hopeful that when she comes back in 2-3 months we can do 6 minute walk test and see if we can hopefully discontinue the oxygen for her. She continues with her diuretics. Will plan to follow-up 2 months. If any issues arise prior to that she will call for an earlier assessment. 08/06/2024 the patient is here for a pulmonary follow-up visit. Overall the patient feels like she is getting worse. Feels like she is having more shortness of breath. She is having to use the oxygen more. In the meantime she has been using her CPAP. The CPAP therapy has been affecting beneficial and she does use it for more than 4 hours a night. We had done an overnight oximetry before she did not need oxygen but will go ahead and repeated again to make sure specially with the issue with the pulmonary hypertension. At this point it appears that her pulmonary hypertension is more related to her stiffen left ventricle and diastolic dysfunction specially since she could not tolerate the vasodilators therapy therapy resulting in flash edema. Veno-occlusive diseases less likely specially with her very severe dilated left atrium. The patient is currently on diuretics. She was placed on torsemide for moment but she develops significant reactions to that. She is going to be following up with the [facility] at [facility] which is believe is very good option for her. I did ask her to discuss Jardiance with the team there. In the meantime she is going to continue with the oxygen with activity. She was going to have the overnight oximetry test again. The patient will undergo blood work a couple weeks and we can check her electrolytes make sure that she is tolerating the diuresis. She is also having some chest congestion some sinus congestion. Will go ahead and start her on nasal prior and also started on Singulair she had before she seemed to tolerate okay. 11/25/2024 the patient is here for pulmonary follow-up visit. The patient continues to have dyspnea on exertion. Moderate severity. Substance now she is getting shortness of breath at rest. Still continues to need oxygen primarily with activity but she has also been noticing that her oxygen drop to 88% at rest. She did follow-up with the heart failure clinic at [facility]. She is being monitored very closely. She was placed on Jardiance that she feels is working better than the Lasix. She also underwent a MRI of the heart which ruled out any intrinsic or infiltrative cardiac disease. She does have Spiriva inhaler although she stopped using it because she felt like she was taken to any medications. I did request that she can restarted been maybe as every other day medication. Her last echocardiogram was back in May demonstrating that dilated left atrium. And also the MRI also picked up the severely dilated left atrium. On my cardiac exam today the patient did have 3/6 systolic murmur best heard at the right sternal border. Seem to radiate to the clavicle. The patient had does have a history of aortic valve disease. 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 I do believe that this may be in part affecting her cardiovascular function. She does continue with CPAP. The CPAP therapy affecting beneficial and she does use it for more than 4 hours a night. Based on the overnight oximetry the patient does benefit from oxygen with CPAP which she is using 2 L per minute with CPAP. She is having issue with the back pain. She was coughing all the sudden started developing severe back pain. She had x- rays done by primary care a Gregor Michelle which demonstrated a compression fracture. Seems like he was older although she may have a new compression fracture. She will also need to follow-up with pain management to see if we need vertebroplasty secondary to significant pain. She is also being looked at for hip replacement. At this point she should hold off until she is better before having elective surgery. [facility] Medical History (Updated 11/25/24 @ 20:08 by Joni Deleon MD) Systolic murmur Insomnia CHF (congestive heart failure) JACKIE (obstructive sleep apnea) Asthma Pulmonary hypertension Pulmonary emboli Dyspnea Social History Patient Tobacco Use Status: Never used Tobacco Review of Systems Const Denies fever(s) Eyes Reports no additional complaints ENT Denies nasal congestion and Reports neck pain Card Denies chest pain and Reports dyspnea on exertion Resp Reports dyspnea on exertion and Denies wheezing GI Reports no additional complaints Musc Reports as per HPI, Reports back pain, Reports loss of height, Reports neck pain, Reports radiating pain into limb and Reports tingling Skin/Breast Denies rash Neuro Reports no additional complaints and Reports tingling Endo Reports no additional complaints Cameron/Lymph Denies easy bleeding, Denies easy bruising and Denies lymphadenopathy Aller/Immun Denies wheezing Physical Exam Vital Signs: Last Vital Signs Pulse 73 11/25/24 11:19 BP 150/88 H 11/25/24 11:19 Pulse Ox 95 11/25/24 11:19 Oxygen Delivery Method Room Air 11/25/24 11:19 BMI result Body Mass Index 30.1 Const General: comfortable HEENT Head: Yes normal to inspection Neck Neck: Yes normal visual inspection Chest Chest palpation & inspection: normal inspection of the chest Resp Effort & Inspection: normal respiratory effort Auscultation: clear to auscultation bilaterally Cardio Rate: regular rate Rhythm: regular rhythm Heart sounds: S1 normal heart sound present, S2 normal heart sound present and Murmur heart sound present systolic early, III/, with radiation and at the right sternal border GI Palpation (GI): Soft to palpation Skin General skin exam: no rashes or lesions noted Extrem General: Yes no clubbing, cyanosis or edema Results Reviewed Results Reviewed: reviewed ECHO, bloodwork Assessment & Plan Assessment & Plan (1) Pulmonary hypertension: Comment: Likely WHO 2>3, no evidence of CTED; Did not tolerate vasodilator therapy due to cardiogenic pulmonary edema Code(s): I27.20 - Pulmonary hypertension, unspecified Category: Medical (2) CHF (congestive heart failure): Comment: HFPEF Code(s): I50.9 - Heart failure, unspecified Category: Medical Qualifiers: Heart failure chronicity: chronic Heart failure type: diastolic Quali fied Code(s): I50.32 - Chronic diastolic (congestive) heart failure (3) Dyspnea: Code(s): R06.00 - Dyspnea, unspecified Category: Medical Qualifiers: Dyspnea type: dyspnea on exertion Qualified Code(s): R06.09 - Other forms of dyspnea (4) Pulmonary emboli: Comment: No evidence of CTED Code(s): I26.99 - Other pulmonary embolism without acute cor pulmonale Category: Medical Qualifiers: Acute cor pulmonale presence: unspecified Chronicity: chronic Pulmonary embolism type: other Qualified Code(s): I27.82 - Chronic pulmonary embolism (5) Asthma: Code(s): J45.909 - Unspecified asthma, uncomplicated Category: Medical Qualifiers: Asthma complication type: uncomplicated Asthma persistence: persistent Asthma severity: moderate Qualified Code(s): J45.40 - Moderate persistent asthma, uncomplicated (6) JACKIE (obstructive sleep apnea): Code(s): G47.33 - Obstructive sleep apnea (adult) (pediatric) Category: Medical (7) Insomnia: Code(s): G47.00 - Insomnia, unspecified Category: Medical Qualifiers: Insomnia type: primary Qualified Code(s): F51.01 - Primary insomnia (8) Back pain: Code(s): M54.9 - Dorsalgia, unspecified Category: Medical Qualifiers: Back pain location: low back pain Chronicity: acute Back pain laterality: unspecified Sciatica presence: without sciatica Qualified Code(s): M54.50 - Low back pain, unspecified (9) Systolic murmur: Code(s): R01.1 - Cardiac murmur, unspecified Category: Medical Plan Oxygen supplementation 2L/pulse with POC. Continue Eliquis BID daily weights continue CPAP therapy, adjusted 8-13 with 2L oxygen continue respiratory therapy with spiriva, ok every other day HARPAL as needed pulmonary rehab/exercise program Trazodone 150mg QHS gabapentin at night Pain referral ?vertebroplasty ECHO at [facility] to assess worsening systolic murmur F/U with Cardiology/CHF clinic F/U 4 months Orders: Orders CA echo transthoracic complete Today R01.1 - Cardiac murmur, unspecified Referrals Pain Management Referral M54.9 - Dorsalgia, unspecified, S22.000A - Wedge compression fracture of unspecified thoracic vertebra, initial encounter for closed fracture Coding Level of Care Code Est Pt Level 5 (95868) Complex EM visit Add On G2211 Diagnoses Pulmonary hypertension I27.20 Chronic diastolic congestive heart failure I50.32 Heart failure chronicity: chronic Heart failure type: diastolic Dyspnea on exertion R06.09 Dyspnea type: dyspnea on exertion Other chronic pulmonary embolism, unspecified whether acute cor pulmonale present I27.82 Acute cor pulmonale presence: unspecified Chronicity: chronic Pulmonary embolism type: other Moderate persistent asthma without complication J45.40 Asthma complication type: uncomplicated Asthma persistence: persistent Asthma severity: moderate JACKIE (obstructive sleep apnea) G47.33 Primary insomnia F51.01 Insomnia type: primary Acute low back pain without sciatica, unspecified back pain laterality M54.50 Back pain location: low back pain Chronicity: acute Back pain laterality: unspecified Sciatica presence: without sciatica Systolic murmur R01.1 Time Spent (min) 60
--- OUTSIDE RECORDS SUMMARY | 2024-11-25 13:41 | XMS_ITS | Encounter Summary ---
Author Organization [facility] Address [address] [place] [address] Care Team Providers Care Senior Laboratory Technician Name Role Phone Sherice John MD Primary Care Provider Unavailab Mikal Rodriguez MD Unavailable Dante Ghotra NP Unavailable Marvin Pritchett MD Unavailable [phone] Shahnaz Sanchez PA-C Unavailable Encounter Details Date Type Department Care Team Description 01/03/2022 SCAN Medical Records [address] [place] [address] Abstract, Provider Social History Tobacco Use Types Packs/Day Years Used Date Smoking Tobacco: Never Smokeless Tobacco: Never Alcohol Use Standard Drinks/Week Comments Yes 0 (1 standard drink = 0.6 oz pure alcohol) wine or beer daily - 1-2 per day Sex Assigned at Date Recorded Not on file Job Start Date Occupation Industry Not on file Not on file Not on file documented as of this encounter Plan of Treatment Not on file documented as of this encounter Procedures Procedure Name Priority Date/Time Associated Diagnosis Comments OUTSIDE LAB Routine 01/03/2022 documented in this encounter Results * OUTSIDE LAB (01/03/2022) Provider Abstract LAB documented in this encounter Visit Diagnoses Not on filedocumented in this encounter Care Teams Senior Laboratory Technician Relationship Specialty Start Date End Date Sherice John MD PCP - General Internal Medicine 01/10/19 Mikal Jones MD [address] [facility] [address] [place] [address] Wood Type Finisher Cardiology 08/06/20 Dante Ghotra NP [address] [facility] [address] [place] [address] Nurse Practitioner Cardiology 03/21/22 Marvin Pritchett MD 300 [facility] [address] [place] [address] Wood Type Finisher Cardiology 04/21/22 Shahnaz Sanchez PA-C 300 [facility] [address] [place] [address] Wood Type Finisher Cardiology 04/21/22 documented as of this encounter
--- OUTSIDE RECORDS SUMMARY | 2024-11-25 13:41 | XMS_ITS | Encounter Summary ---
Author Organization [employer] Address [address] [facility] [address] [place] [address] Care Team Providers Care Business Controller Name Role Phone Sherice John MD Primary Care Provider [phone] Encounter Details Date Type Department Care Team (Latest Contact Info) Description 11/24/2024 Travel Social History Tobacco Use Types Packs/Day Years [...] Care Team (Late st Contact Info) Description 01/29/2025 10:00 AM EDT Office Visit [facility] MEDICAL [address] [place] [address] Sherice John MD [address] [place] [address] documented as of this encounter Visit Diagnoses Not on filedocumented in this encounter Care Teams Business Controller Relationship Specialty Start Date End Date Sherice John MD [address] [place] [address] PCP - General Internal Medicine 08/08/22 documented as of this encounter
--- OUTSIDE RECORDS SUMMARY | 2024-11-25 13:41 | XMS_ITS | Encounter Summary ---
Author Organization [facility] Address [address] [place] [address] Care Team Providers Care Security Investigator Name Role Phone Sherice John MD Primary Care Provider Unavailab Mikal Rodriguez MD Unavailable Dante Ghotra NP Unavailable [phone] Marvin Pritchett MD Unavailable Shahnaz Sanchez PA-C Unavailable Encounter Details Date Type Department Care Team Description 06/03/2024 Pt. Non Urgent Medical Question Cardio PVC [facility] [address] [place] [address] Mikal Jones MD 300 [facility] [address] [place] [address] Social History Tobacco Use Types Packs/Day Years Used Date Smoking Tobacco: Never Smokeless Tobacco: Never Alcohol Use Standard Drinks/Week Comments Yes 0 (1 standard drink = 0.6 oz pure alcohol) wine or beer most days - 1-2 per day Sex Assigned at Date Recorded Not on file Job Start Date Occupation Industry Not on file Not on file Not on file documented as of this encounter Miscellaneous Notes * Telephone Encounter - Reshma Valderrama NP - 06/03/2024 11:43 AM EDT Patient should be scheduled for a visit. * Telephone Encounter - Brenda Maurer C.M.A. - 06/03/2024 11:35 AM EDTFrom: Mary Delgado To: Radha Jones Sent: 06/03/2024 11:32 AM EDT Subject: HFpPF symptoms worsening Hi Dr Jones I called your office SunJun 06 and spoke with Bernice about my symptoms and the message I received from my primary care, Dr Sherice John about having an appointment to discuss worsening symptoms and an echocardiogram. I have not received a call back. Please respond via portal if convenient. Thanks documented in this encounter Plan of Treatment Not on file documented as of this encounter Visit Diagnoses Not on filedocumented in this encounter Care Teams Security Investigator Relationship Specialty Start Date End Date Sherice John MD PCP - General Internal Medicine 01/10/19 Mikal Jones MD [address] [address] Bond Trader Cardiology 08/06/20 Dante Ghotra NP [address] [address] Nurse Practitioner Cardiology 03/21/22 Marvin Pritchett MD [address] [address] Bond Trader Cardiology 04/21/22 Shahnaz Sanchez PA-C [address] [address] Bond Trader Cardiology 04/21/22 documented as of this encounter
--- OUTSIDE RECORDS SUMMARY | 2024-11-25 13:41 | XMS_ITS | Encounter Summary ---
Author Organization [facility] Address [address] [place] [address] Care Team Providers Care Industrial Technology Education Teacher Name Role Phone Sherice John MD Primary Care Provider Unavailab Mikal Rodriguez MD Unavailable Dante Ghotra NP Unavailable [phone] Marvin Pritchett MD Unavailable [phone] Shahnaz Sanchez PA-C Unavailable Encounter Details Date Type Department Care Team Description 04/07/2022 Manager Bridge Report Medical Records [address] [place] [address] Mary Domínguez Jo Social History Tobacco Use Types Packs/Day Years Used Date Smoking Tobacco: Never Smokeless Tobacco: Never Alcohol Use Standard Drinks/Week Comments Yes 0 (1 standard drink = 0.6 oz pure alcohol) wine or beer most days - 1-2 per day Sex Assigned at Date Recorded Not on file Job Start Date Occupation Industry Not on file Not on file Not on file COVID-19 Exposure Response Date Recorded In the last 10 days, have stef lemons been in contact with someone who was confirmed or suspected to have Coronavirus/COVID-19? No / Unsure 03/15/2022 12:22 PM EDT documented as of this encounter Plan of Treatment Not on file documented as of this encounter Visit Diagnoses Not on filedocumented in this encounter Care Teams Industrial Technology Education Teacher Relationship Specialty Start Date End Date Sherice John MD PCP - General Internal Medicine 01/10/19 Mikal Jones MD 300 [facility] [address] [place] [address] Bone Cooking Operator Cardiology 08/06/20 Dante Ghotar NP 300 [facility] [address] [place] [address] Nurse Practitioner Cardiology 03/21/22 Marvin Pritchett MD [address] [facility] 154 [place] [address] Bone Cooking Operator Cardiology 04/21/22 Shahnaz Sanchez PA-C [address] [address] Bone Cooking Operator Cardiology 04/21/22 documented as of this encounter
--- OUTSIDE RECORDS SUMMARY | 2024-11-25 13:41 | XMS_ITS | Encounter Summary ---
Author Organization [facility] Address [address] [place] [address] Care Team Providers Care Cna Per Diem Name Role Phone Sherice John MD Primary Care Provider Unavailab Mikal Rodriguez MD Unavailable Dante Ghotra NP Unavailable Marvin Pritchtet MD Unavailable [phone] Shahnaz Sanchez PA-C Unavailable Encounter Details Date Type Department Care Team Description 05/02/2022 Telephone Cardio PVCA Diag Testing 101 300 [facility] [address] [place] [address] Dante Ghotra NP [address] [place] [address] [id number] Social History Tobacco Use Types Packs/Day Years [...] Recorded In the last 10 days, have tsef u been in contact with someone who was confirmed or suspected to have Coronavirus/COVID-19? No / Unsure 04/26/2022 10:51 AM EDT documented as of this encounter Miscellaneous Notes * Telephone Encounter - Mikal Jones MD - 05/03/2022 2:50 PM EDT Will discuss with her at appt but I'm not sure why her PVCs should not be more aggresively treated although I admit I am not certain at times about correlation with symptoms. * Telephone Encounter - Dante Ghotra NP - 05/02/2022 12:32 PM EDT Please review and let me know your thoughts. * Telephone Encounter - Dante Ghotra NP - 05/02/2022 12:32 PM EDT ----- Message from Bernice Montoya R.N. sent at 05/01/2022 3:06 PM EDT ----- Regarding: FW: Metoprolol and Appointment ----- Message ----- From: Mary Delgado Sent: 05/01/2022 3:03 PM EDT To: [facility] Triage [facility] Subject: Metoprolol and Appointment [facility], Last week after seeing Dr Pritchett, I asked him for a prescription for the 50 mg of Metoprolol. When Ireceived the script it was for 25 mg. Any idea why ? I have been taking two 25 mg tablets at night since March, per your direction. I sent you a message last week and I hope you saw the attachment. Since I have a lot of questions Ithink it would be abdalla to set up an appointment with you or Dr. Jones to discuss my concerns. Thanks again, documented in this encounter Plan of Treatment Not on file documented as of this encounter Visit Diagnoses Not on filedocumented in this encounter Care Teams Cna Per Diem Relationship Specialty Start Date End Date Sherice John MD PCP - General Internal Medicine 01/10/19 Mikal Jones MD [address] [address] Cut Off Operator Scorer Cardiology 08/06/20 Dante Ghotra NP [address] [address] Nurse Practitioner Cardiology 03/21/22 Marvin Pritchett MD [address] [place] [address] Cut Off Operator Scorer Cardiology 04/21/22 Shahnaz Sanchez PA-C [address] [place] [address] Cut Off Operator Scorer Cardiology 04/21/22 documented as of this encounter
--- OUTSIDE RECORDS SUMMARY | 2024-11-25 13:41 | XMS_ITS | Encounter Summary ---
Author Organization [facility] Address [address] [place] [address] Care Team Providers Care Field Adjuster Name Role Phone Sherice John MD Primary Care Provider Unavailab Mikal Rodriguez MD Unavailable Dante Ghotra NP Unavailable [phone] Marvin Pritchett MD Unavailable [phone] Shahnaz Sanchez PA-C Unavailable Encounter Details Date Type Department Care Team Description 10/21/2019 Incident Handler Report Medical Records [address] [place] [address] Heavenly [place] NP Social History Tobacco Use Types Packs/Day Years Used Date Smoking Tobacco: Never Smokeless Tobacco: Never Alcohol Use Standard Drinks/Week Comments Yes 0 (1 standard drink = 0.6 oz pur e alcohol) wine or beer daily Sex Assigned at Date Recorded Not on file Job Start Date Occupation Industry Not on file Not on file Not on file documented as of this encounter Plan of Treatment Not on file documented as of this encounter Visit Diagnoses Not on filedocumented in this encounter Care Teams Field Adjuster Relationship Specialty Start Date End Date Sherice John MD PCP - General Internal Medicine 01/10/19 Mikal Jones MD [address] [address] Locker Plant Attendant Cardiology 08/06/20 Dante Ghotra NP [address] [phone] Nurse Practitioner Cardiology 03/21/22 Marvin Pritchett MD [address] [address] Locker Plant Attendant Cardiology 04/21/22 Shahnaz Sanchez PA-C [address] [place] [address] Locker Plant Attendant Cardiology 04/21/22 documented as of this encounter
--- OUTSIDE RECORDS SUMMARY | 2024-11-25 13:41 | XMS_ITS | Encounter Summary ---
Author Organization [facility] Address [address] [place] [address] Care Team Providers Care Medicare Insurance Specialist Name Role Phone Sherice John MD Primary Care Provider Unavailab Mikal Rodriguez MD Unavailable Dante Ghotra NP Unavailable [phone] Marvin Pritchett MD Unavailable [phone] Shahnaz Sanchez PA-C Unavailable Encounter Details Date Type Department Care Team Description 04/27/2022 Pt. Non Urgent Medical Question Cardio PVC [facility] [address] [facility] [address] [address] [place] [address] Dante Ghotra NP [address] [place] [address] [id number] Social History Tobacco Use Types Packs/Day Years [...] Recorded In the last 10 days, have yo u been in contact with someone who was confirmed or suspected to have Coronavirus/COVID-19? No / Unsure 04/26/2022 10:51 AM EDT documented as of this encounter Plan of Treatment Not on file documented as of this encounter Visit Diagnoses Not on filedocumented in this encounter Care Teams Medicare Insurance Specialist Relationship Specialty Start Date End Date Sherice John MD PCP - General Internal Medicine 01/10/19 Mikal Jones MD 300 [facility] [address] [place] [address] Plate And Frame Filter Operator Cardiology 08/06/20 Dante Ghotra NP 300 [facility] [address] [place] [address] Nurse Practitioner Cardiology 03/21/22 Marvin Pritchett MD [address] [address] Plate And Frame Filter Operator Cardiology 04/21/22 Shahnaz Sanchez PA-C [address] [address] Plate And Frame Filter Operator Cardiology 04/21/22 documented as of this encounter
--- OUTSIDE RECORDS SUMMARY | 2024-11-25 13:41 | XMS_ITS | Encounter Summary ---
Author Organization [facility] Address [address] [place] [address] Care Team Providers Care Bond Manager Name Role Phone Sherice John MD Primary Care Provider Unavailab Mikal Rodriguez MD Unavailable Dante Ghotra NP Unavailable Marvin Pritchett MD Unavailable Shahnaz Sanchez PA-C Unavailable Reason for Visit * Reason Onset Date Comments Pulmonary Testing 03/12/2023 Encounter Details Date Type Department Care Team Description 03/12/2023 Telephone Cardio PVC [facility] [address] [place] [phone] Mikal Jones MD [address] [place] [address] Pulmonary Testing Social History Tobacco Use Types Packs/Day Years [...] encounter Miscellaneous Notes * Telephone Encounter - Linh Preciado - 03/12/2023 11:00 AM EDT Patient calling again and states she wants a call back From Dr Jones and Dr Jones only regarding message below, was able to move her April appointment up to April [phone] * Telephone Encounter - Ta Dallas - 03/12/2023 10:43 AM EDT Patient sent a Mychart message stating she was placed on oxygen by her [employer] Developer and she completes all the tests and blood work she needed. She would like to know what her next steps would be. She has a scheduled appointment in April with Dr. Jones, but she would like answers sooner than later. Please call patient at [phone]. documented in this encounter Plan of Treatment Not on file documented as of this encounter Visit Diagnoses Not on filedocumented in this encounter Care Teams Bond Manager Relationship Specialty Start Date End Date Sherice John MD PCP - General Internal Medicine 01/10/19 Mikal Jones MD [address] [address] Director Foundation Cardiology 08/06/20 Dante Ghotra NP [address] [address] Nurse Practitioner Cardiology 03/21/22 Marvin Pritchett MD [address] [address] Director Foundation Cardiology 04/21/22 Shahnaz Sanchez PA-C [address] [address] Director Foundation Cardiology 04/21/22 documented as of this encounter
--- OUTSIDE RECORDS SUMMARY | 2024-11-25 13:41 | XMS_ITS | Encounter Summary ---
Author Organization [employer] Address [address] [place] [address] [place] [address] Care Team Providers Care Property Administrator Name Role Phone Pauline Paulino MD Primary Care Provider [phone] Reason for Referral * Imaging (Routine) - Pending Review Specialty Diagnoses / Procedures Referred By Contac t Referred To Contact Radiology Diagnoses Acute midline low back pain without sciatica Procedures XR Lumbar Spine 2-3 Views Pauline Paulino MD [address] [place] [address] Phone: tel: fax: [facility] [place] [address] [place] [address] Phone: tel: fax: Referral ID Status Reason Start Date Expiration Date V isits Requested Visits Authorized [id number] Pending Review 11/21/2024 11/21/2025 1 1 Reason for Visit * Reason Onset Date Comments Back Pain 11/17/2024 Encounter Details Date Type Department Care Team (Late st Contact Info) Description 11/17/[address] [place] [facility] MEDICAL [address] [place] [address] Pauline Paulino MD [address] [place] [address] Back Pain Social History Tobacco Use Types Packs/Day Years [...] encounter Miscellaneous Notes * Telephone Encounter - Tegan Hope LPN - 11/24/2024 10:14 AM EDT Call to patient to discuss recent urgent care visit and offer office visit. Date of urgent care visit: 11/22/24 Discharge date: 11/22/24 Hospital: [facility] Urgent Care Records on file: yes Discharge diagnosis: L4 compression fracture of undetermined age Patient described events as: lower back pain, heard a crack in lumbar region 6 days ago Lingering concerns/symptoms for provider: back pain persists Follow-up scheduled: telehealth 11/24/24 * Telephone Encounter - Tegan Hope LPN - 11/24/2024 9:50 AM EDT November 24, 2024 Tegan Kemp to [place] Triage Nurses 11/24/24 8:48 AM Note scanned. * Telephone Encounter - Tegan Hope LPN - 11/22/2024 8:05 AM EDT Spoke with pt. She has an appointment this morning at [facility] Urgent [facility]. X-ray order faxed to [facility] per pt's request. Please monitor for urgent care note. Thank you * Addendum Note - Pauline Paulino MD - 11/21/2024 5:14 PM EDTAddended by: PAULINE PAULINO on: 11/21/2024 05:14 PM Modules accepted: Orders * Telephone Encounter - Pauline Paulino MD - 11/21/2024 5:13 PM EDT I put an order in for an xray, can fax to [facility] or mail to pt. * Telephone Encounter - Heather Kwon LPN - 11/21/2024 11:[address] Lora reports that on 11/17 she coughed and heard a crack in her lower back. Since then she has had pain in lumbar area terrance. While trying to get OOB or pick things up. I advised ED but sheis trying to avoid that as she can't sit very long. She is asking if you would order an x-ray for her to get done at [facility]. No numbness or tingling in lower ext's. No problems with urination. She has ahip replacement coming up and wants to be sure everything is ok. Please advise., * Telephone Encounter - Migdalia Jones - 11/21/2024 8:59 AM EDT Patient called stating I called on 11/17/24 because I had heard a crack in the bottom of my spine when I coughed, I talked to a nurse and the week has gone by, I've taken it easy but I'm kind of worried what's going on, the pain is just continuing, it's not going away, it seems like mostly when I bend but I have trouble getting out of bed and can't picker feeder things off the floor, I wanted to see ifthere was something they might want me to do like an x-ray or something, I did have an MRI on my back a number of years ago (2017 or so from [facility]) that [facility] ordered, I can't find the results but that might be helpful. Patient states she would like a call back, thank you! * Telephone Encounter - Lanny Schneider RN - 11/17/2024 1:21 PM EDT Pt reports popping sound and pain onset this morning after coughing. Pain is improved with ice and with lying dwn. No LE numbness, weakness. No bowel/bladder problems. No warmth at pain site when iceis removed. Has hx RA and is on Eliquis. Will cont to ice and rest area Use OTC diclofenac gel and APAP. Will call for worsening or no improvement after 24 hours. * Telephone Encounter - Sarah Piña - 11/17/2024 12:08 PM EDT Patient called Patient coughed this morning and heard a popping sound from her lower back. Patient currently having lower back pain near spine. Patient is not currently having any problems walking and it does not appear to be swollen. Patient is icing the area but is in pain documented in this encounter Plan of Treatment Upcoming Encounters Date Type Department Care Team (Late st Contact Info) Description 01/29/2025 10:00 AM EDT Office Visit [facility] MEDICAL [address] [place] [address] Pauline Paulino MD [address] [place] [address] Scheduled Orders Name Type Priority Associated Diagnoses Orde r Schedule XR Lumbar Spine 2-3 Views Imaging Routine Acute midline low back pain without sciatica Expected: 11/21/2024, Expires: 11/21/2025 documented as of this encounter Visit Diagnoses Diagnosis Acute midline low back pain without sciatica- Primary documented in this encounter Care Teams Property Administrator Relationship Specialty Start Date End Date Pauline Paulino MD [address] [place] [address] PCP - General Internal Medicine 08/08/22 documented as of this encounter
--- OUTSIDE RECORDS SUMMARY | 2024-11-25 13:41 | XMS_ITS | Encounter Summary ---
Author Organization [facility] Address [address] [place] [address] Care Team Providers Care Manager School Name Role Phone Sherice John MD Primary Care Provider Unavailab Mikal Rodriguez MD Unavailable Dante Ghotra NP Unavailable [phone] Marvin Pritchett MD Unavailable [phone] Shahnaz Sanchez PA-C Unavailable Encounter Details Date Type Department Care Team Description 09/15/2022 Pt. Non Urgent Medical Question Cardio PVC [facility] [address] [facility] [address] [place] [phone] Mikal Jones MD [address] [place] [address] Social History Tobacco Use Types Packs/Day Years [...] on filedocumented in this encounter Care Teams Manager School Relationship Specialty Start Date End Date Sherice John MD PCP - General Internal Medicine 01/10/19 Mikal Jones MD [address] [place] [address] [address] [place] [address] Principal Architect Cardiology 08/06/20 Dante Ghotra NP 300 [facility] [address] [place] [address] Nurse Practitioner Cardiology 03/21/22 Marvin Pritchett MD 300 [facility] 154 [place] [address] Principal Architect Cardiology 04/21/22 Shahnaz Sanchez PA-C 300 [facility] [address] [place] [address] Principal Architect Cardiology 04/21/22 documented as of this encounter
--- OUTSIDE RECORDS SUMMARY | 2024-11-25 13:41 | XMS_ITS | Encounter Summary ---
Author Organization [facility] Address [address] [place] [address] Care Team Providers Care Casing Tier Name Role Phone Sherice John MD Primary Care Provider Unavailab Mikal Rodriguez MD Unavailable Dante Ghotra NP Unavailable Marvin Pritchett MD Unavailable Shahnaz Sancehz PA-C Unavailable Encounter Details Date Type Department Care Team Description 09/12/2023 Pt. Non Urgent Medical Question Cardio PVC [facility] 410 2 [facility] [address] [place] [phone] Mikal Jones MD [address] [place] [address] Social History Tobacco Use Types Packs/Day Years [...] on filedocumented in this encounter Care Teams Casing Tier Relationship Specialty Start Date End Date Sherice John MD PCP - General Internal Medicine 01/10/19 Mikal Jones MD [address] [place] [address] [place] [address] Clinical Registered Nurse Cardiology 08/06/20 Dante Ghotra NP 300 [facility] [address] [place] [address] Nurse Practitioner Cardiology 03/21/22 Marvin Pritchett MD 300 [facility] [address] [place] [address] Clinical Registered Nurse Cardiology 04/21/22 Shahnaz Sanchez PA-C 300 [facility] [address] [place] [address] Clinical Registered Nurse Cardiology 04/21/22 documented as of this encounter
--- OUTSIDE RECORDS SUMMARY | 2024-11-25 13:41 | XMS_ITS | Encounter Summary ---
Author Organization [facility] Address [address] [place] [address] Care Team Providers Care Mirror Machine Feeder Name Role Phone Sherice John MD Primary Care Provider Unavailab Mikal Rodriguez MD Unavailable Dante Ghotra NP Unavailable Marvin Pritchett MD Unavailable Shahnaz Sanchez PA-C Unavailable Reason for Visit * Reason Onset Date Comments other 09/02/2020 Update Encounter Details Date Type Department Care Team Description 09/02/2020 Telephone Cardio P[facility] [address] [place] [phone] Mikal Jones MD [address] [place] [address] other (Update) Social History Tobacco Use Types Packs/Day Years [...] Exposure Response Date Recorded In the last month, have you been in contact with someone who was confirmed or suspected to have Coronavirus / COVID-19? No / Unsure 08/09/2020 9:38 AM EST documented as of this encounter Miscellaneous Notes * Telephone Encounter - Bernice Montoya R.N. - 09/02/2020 1:39 PM EST Pt calling in an update of BP after increasing lisinopril to 20 mg BID. She checked BP in both arms. AM 138/87 (L) 151/90 (R) PM 110/61 (L) 149/77 (R), AM 134/72 (L) 147/101 (R) PM 126/72 (L) 139/81 (R) In general, this is how her BP has been running. States it is still higher in the am than the pm, right arm usually higher than left. * Telephone Encounter - Jazzdebby Fenton - 09/02/2020 11:52 AM EST 09/02/20: KM pt stated that KM explained to her at her laura to call and update him on how she has been doing. Pt did not go into detail. Pt can be reached at [phone]. documented in this encounter Plan of Treatment Not on file documented as of this encounter Visit Diagnoses Not on filedocumented in this encounter Care Teams Mirror Machine Feeder Relationship Specialty Start Date End Date Sherice John MD PCP - General Internal Medicine 01/10/19 Mikal Jones MD [address] [address] [facility] 08/06/20 Dante Ghotra NP [address] [address] Nurse Practitioner Cardiology 03/21/22 Marvin Pritchett MD [address] [address] [facility] 04/21/22 Shahnaz Sanchez PA-C [address] [address] [facility] 04/21/22 documented as of this encounter
--- OUTSIDE RECORDS SUMMARY | 2024-11-25 13:41 | XMS_ITS | Encounter Summary ---
Author Organization [facility] Address [address] [place] [address] Care Team Providers Care Explosive Ordnance Specialist Name Role Phone Sherice John MD Primary Care Provider Unavailab Mikal Rodriguez MD Unavailable Dante Ghotra NP Unavailable [phone] Marvin Pritchett MD Unavailable [phone] Shahnaz Sanchez PA-C Unavailable Encounter Details Date Type Department Care Team Description 04/11/2022 Pt. Non Urgent Medical Question Cardio PVC [facility] [address] [place] [address] Dante Ghotra NP [address] [place] [address] [id number] Social History Tobacco Use Types Packs/Day Years [...] on filedocumented in this encounter Care Teams Explosive Ordnance Specialist Relationship Specialty Start Date End Date Sherice John MD PCP - General Internal Medicine 01/10/19 Mikal Jones MD 300 [facility] 154 [place] [address] Warper Tender Cardiology 08/06/20 Dante Ghotra NP 300 [facility] 154 [place] [address] Nurse Practitioner Cardiology 03/21/22 Marvin Pritchett MD [address] [address] Warper Tender Cardiology 04/21/22 Shahnaz Sanchez PA-C [address] [address] Warper Tender Cardiology 04/21/22 documented as of this encounter
--- OUTSIDE RECORDS SUMMARY | 2024-11-25 13:41 | XMS_ITS | Encounter Summary ---
Author Organization [facility] Address [address] [place] [address] Care Team Providers Care Diesel Crane Operator Name Role Phone Sherice John MD Primary Care Provider Unavailab Mikal Rodriguez MD Unavailable Dante Ghotra NP Unavailable [phone] Marvin Pritchett MD Unavailable Shahnaz Sanchez PA-C Unavailable Encounter Details Date Type Department Care Team Description 08/15/2023 Pt. Non Urgent Medical Question Cardio PVC [facility] [address] [facility] [address] [place] [phone] Dante Ghotra NP [address] [place] [address] [id number] Social History Tobacco Use Types Packs/Day Years [...] on filedocumented in this encounter Care Teams Diesel Crane Operator Relationship Specialty Start Date End Date Sherice John MD PCP - General Internal Medicine 01/10/19 Mikal Jones MD 300 [facility] [address] [place] [address] Grooving Machine Operator Cardiology 08/06/20 Dante Ghotra NP [address] [address] Nurse Practitioner Cardiology 03/21/22 Marvin Pritchett MD 300 [facility] 154 [place] [address] Grooving Machine Operator Cardiology 04/21/22 Shahnaz Sanchez PA-C [address] [address] Grooving Machine Operator Cardiology 04/21/22 documented as of this encounter
--- OUTSIDE RECORDS SUMMARY | 2024-11-25 13:41 | XMS_ITS | Encounter Summary ---
Author Organization [facility] Address [address] [place] [address] Care Team Providers Care Nuclear Supervising Operator Name Role Phone Sherice John MD Primary Care Provider Unavailab Mikal Rodriguez MD Unavailable Dante Ghotra NP Unavailable [phone] Marvin Pritchett MD Unavailable [phone] Shahnaz Sanchez PA-C Unavailable Encounter Details Date Type Department Care Team Description 03/27/2023 SCAN Medical Records [address] [place] [address] Abstract, Provider Social History Tobacco Use Types [...] Date/Time Associated Diagnosis Comments OUTSIDE LAB Routine 03/27/2023 documented in this encounter Results * OUTSIDE LAB (03/27/2023) Provider Default LAB documented in this encounter Visit Diagnoses Not on filedocumented in this encounter Care Teams Nuclear Supervising Operator Relationship Specialty Start Date End Date Sherice John MD PCP - General Internal Medicine 01/10/19 Mikal Jones MD 300 [facility] [address] [place] [address] Nipple Maker Cardiology 08/06/20 Dante Ghotra NP 300 [facility] [address] [place] [address] Nurse Practitioner Cardiology 03/21/22 Marvin Pritchett MD 300 [facility] 154 [place] [address] Nipple Maker Cardiology 04/21/22 Shahnaz Sanchez PA-C [address] [address] Nipple Maker Cardiology 04/21/22 documented as of this encounter
--- OUTSIDE RECORDS SUMMARY | 2024-11-25 13:41 | XMS_ITS | Encounter Summary ---
Author Organization [facility] Address [address] [place] [address] Care Team Providers Care Avionic Technician Name Role Phone Sherice John MD Primary Care Provider Unavailab Mikal Rodriguez MD Unavailable Dante Ghotra NP Unavailable Marvin Pritchett MD Unavailable Shahnaz Sanchez PA-C Unavailable Encounter Details Date Type Department Care Team Description 10/03/2022 Telephone Cardio P[facility] [address] [place] [address] Dante Ghotra NP [address] [place] [address] [phone] Social History Tobacco Use Types Packs/Day Years [...] encounter Miscellaneous Notes * Telephone Encounter - Dante Ghotra NP - 10/03/2022 1:14 PM EST Script sent * Telephone Encounter - Dante Ghotra NP - 10/03/2022 1:11 PM EST ----- Message from Brenda Maurer C.M.A. sent at 10/03/2022 10:43 AM EST ----- Regarding: FW: PVCs Contact: ----- Message ----- From: Mary Delgado Sent: 10/03/2022 10:39 AM EST To: [facility] Subject: PVCs Hi Herman Thanks for your response. I will try the bedtime dose. I didn???t understand what to expect with the bisoprolol except to limit pvcs. I only have the prescription for 5 mg. Please order me the 10 mg if appropriate. documented in this encounter Plan of Treatment Not on file documented as of this encounter Visit Diagnoses Diagnosis Premature ventricular contractions- Primary Other premature beats documented in this encounter Care Teams Avionic Technician Relationship Specialty Start Date End Date Sherice John MD PCP - General Internal Medicine 01/10/19 Mikal Jones MD [address] [address] Taker Off Cardiology 08/06/20 Dante Ghotra NP [address] [address] Nurse Practitioner Cardiology 03/21/22 Marvin Pritchett MD [address] [address] Taker Off Cardiology 04/21/22 Shahnaz Sanchez PA-C [address] [address] Taker Off Cardiology 04/21/22 documented as of this encounter
--- OUTSIDE RECORDS SUMMARY | 2024-11-25 13:41 | XMS_ITS | Encounter Summary ---
Author Organization [facility] Address [address] [place] [address] Care Team Providers Care Finisher Brush Name Role Phone Sherice John MD Primary Care Provider Unavailab Mikal Rodriguez MD Unavailable Dante Ghotra NP Unavailable [phone] Marvin Pritchett MD Unavailable [phone] Shahnaz Sanchez PA-C Unavailable Encounter Details Date Type Department Care Team Description 09/07/2022 SCAN Medical Records [address] [place] [id number] Abstract, Provider Social History Tobacco Use Types [...] Date/Time Associated Diagnosis Comments OUTSIDE LAB Routine 09/07/2022 documented in this encounter Results * OUTSIDE LAB (09/07/2022) Provider Abstract LAB documented in this encounter Visit Diagnoses Not on filedocumented in this encounter Care Teams Finisher Brush Relationship Specialty Start Date End Date Sherice John MD PCP - General Internal Medicine 01/10/19 Mikal Jones MD 300 [facility] [address] [place] [address] Chief Medical Physicist Cardiology 08/06/20 Dante Ghotra NP 300 [facility] [address] [place] [address] Nurse Practitioner Cardiology 03/21/22 Marvin Pritchett MD 300 [facility] 154 [place] [address] Chief Medical Physicist Cardiology 04/21/22 Shahnaz Sanchez PA-C [address] [address] Chief Medical Physicist Cardiology 04/21/22 documented as of this encounter
--- OUTSIDE RECORDS SUMMARY | 2024-11-25 13:41 | XMS_ITS | Encounter Summary ---
Author Organization [facility] Address [address] [place] [address] Care Team Providers Care Antique Refinisher Name Role Phone Sherice John MD Primary Care Provider Unavailab Mikal Rodriguez MD Unavailable Dante Ghotra NP Unavailable Marvin Pritchett MD Unavailable [phone] Shahnaz Sanchez PA-C Unavailable Reason for Visit * Reason Onset Date Comments refill request 04/29/2021 Encounter Details Date Type Department Care Team Description 04/29/2021 Refill Pulmonology - [address] [place] [address] Sherice John MD refill request Social History Tobacco Use Types Packs/Day [...] have Coronavirus / COVID-19? No / Unsure 04/22/2021 10:00 AM EDT documented as of this encounter Miscellaneous Notes * Telephone Encounter - Sarah Borjas - 04/29/2021 10:22 AM EDT Patient would like script to be: E-PRESCRIBED/FAXED TO PHARMACY WHEN WAS THE PATIENT'S LAST APPOINTMENT WITH THE PRESCRIBING PROVIDER? 04/22/21 Does patient have an upcoming appointment? Yes 07/06/21 (THE MEDICATION REQUESTED IS ON THE MED LIST ABOVE) All of the medications requested were on the CURRENT MEDS list (Drug change request drug not covered by patient plan) Did you check the Pharmacy information above?: YES Patient wants: 30 -day supply Is this a mail order prescription request ? NO Patients current insurance carrier is: Payor: MEDICARE-[employer] / Plan: MEDICARE-[employer] / Product Type: MEDICARE [id number] documented in this encounter Plan of Treatment Not on file documented as of this encounter Visit Diagnoses Not on filedocumented in this encounter Care Teams Antique Refinisher Relationship Specialty Start Date End Date Sherice John MD PCP - General Internal Medicine 01/10/19 Mikal Jones MD [address] [address] Heel Boom Operator Cardiology 08/06/20 Dante Ghotra NP [address] [address] Nurse Practitioner Cardiology 03/21/22 Marvin Pritchett MD [address] [address] Heel Boom Operator Cardiology 04/21/22 Shahnaz Sanchez PA-C [address] [address] Heel Boom Operator Cardiology 04/21/22 documented as of this encounter
--- OUTSIDE RECORDS SUMMARY | 2024-11-25 13:41 | XMS_ITS | Encounter Summary ---
Author Organization [facility] Address [address] [facility] [address] [place] [address] Care Team Providers Care Export Agent Name Role Phone Sherice John MD Primary Care Provider [phone] Encounter Details Date Type Department Care Team (Late st Contact Info) Description 09/23/2024 Orders Only [facility] [address] [place] [address] Sherice John MD [address] [place] [address] Social History Tobacco Use Types Packs/Day Years [...] Description 01/29/2025 10:00 AM EDT Office Visit [facility] MEDICAL [address] [place] [address] Sherice John MD [address] [place] [id number] documented as of this encounter Procedures Procedure Name Priority Date/Time Associated Diagnosis Comments HM COLONOSCOPY Routine 05/06/2024 1:27 PM EDT documented in this encounter Results * Hm Colonoscopy (05/06/2024 1:27 PM EDT) Sherice John MD HEALTH MAINTENANCE Final Result documented in this encounter Visit Diagnoses Not on filedocumented in this encounter Care Teams Export Agent Relationship Specialty Start Date End Date Sherice John MD [address] [place] [id number] PCP - General Internal Medicine 08/08/22 documented as of this encounter
--- OUTSIDE RECORDS SUMMARY | 2024-11-25 13:41 | XMS_ITS | Clinical Summary ---
Author Organization [facility] Address [address] [place] [address] Care Team Providers Care Cloud Consultant Name Role Phone Sherice John MD Primary Care Provider Unavailab Mikal Rodriguez MD Unavailable Dante Ghotra NP Unavailable [phone] Marvin Pritchett MD Unavailable [phone] Shahnaz Sanchez PA-C Unavailable Allergies Active Allergy Reactions Severity Noted Date Comments Hydromorphone Hives/Urticaria,Nausea and Vomiting 04/19/2022 Dust 03/25/2019 Hydromorphone Hcl Mold 03/25/2019 Sulfa Drugs Rash/Dermatitis 02/07/2019 Medications Medication Sig Dispensed Refills Start Date End Date Status lansoprazole (PREVACID) 30 MG capsule Take 30 mg by mouth daily. 0 Active sertraline (ZOLOFT) 100 MG tablet Take 1.5 Tablets by mouth daily. 0 Active rosuvastatin (CRESTOR) 20 MG tablet Take 20 mg by mouth daily. 0 Active gabapentin (NEURONTIN) 400 MG capsule Take 2 Capsules by mouth daily. 0 Active alprazolam (NIRAVAM) 0.25 MG dissolvable tablet Take 2 Tabs by mouth at bedtime as needed. 0 Active calcium carbonate (OS-MILLA) 1250 (500 CA) MG tablet Take 1 tablet by mouth daily. After a meal 0 Active Cholecalciferol (VITAMIN D) 2000 UNITS Tab Take 1 Tab by mouth daily. 0 Active Multiple Vitamin (MULTIVITAMINS OR) Take 1 Tab by mouth daily. 0 Active sumatriptan (IMITREX) 100 MG tablet Take 1 Tab by mouth daily as needed. At the onset of a headache 0 Active Denosumab 60 MG/ML Solution Prefilled Syringe Inject 60 mg into the skin Every 6 Months. 0 Active LEVALBUTEROL HCL IN Inhale into the lungs every 4 hours as needed. 0 Active tiotropium (SPIRIVA) 18 MCG inhalation capsule Inhale into the lungs daily. Inhale the contents of one capsule through the Spiriva device every AM 0 Active Eliquis 5 MG Tab Take 1 Tablet by mouth 2 Times Daily. 0 02/22/2023 Active Oxygen Historical (HISTORICAL OXYGEN) Inhale into the lungs daily. 0 Active lisinopril (PRINIVIL,ZESTRIL) 20 MG tablet Take 1 Tablet by mouth daily. 0 Active mexiletine (MEXITIL) 150 MG capsule Take 1 Capsule by mouth 2 times daily. 0 Active diltiazem (CARDIZEM) 120 MG tablet Take 1 Tablet by mouth daily. 0 Active cycloSPORINE (RESTASIS OP) apply 1 Drop to the eye 2 times daily. 0 Active BENZONATATE OR Take by mouth as needed. 0 Active Acetaminophen (TYLENOL ARTHRITIS PAIN OR) Take by mouth as needed. 0 Active Dextromethorphan-guai FENesin (MUCINEX DM OR) Take by mouth. 0 Active Torsemide 40 MG Tab Take 1 Tablet by mouth daily. 90 Tablet 1 06/12/2024 Active Active Problems Problem Noted Date Pulmonary embolus 11/09/2022 Last Assessment & Plan: Patient reports history of pulmonary embolism in the past. She continues on Eliquis for anticoagulation. PVC (premature ventricular contraction) 11/07/2022 Last Assessment & Plan: Patient has history of symptomatic PVCs and has followed with an observatory director in the [facility]. She continues on mexiletine 150 mg twice daily and diltiazem 120 mg daily. Her EKG today is showing sinus rhythm with possible left atrial enlargement, heart rate 66 bpm. Continue with medical therapies as prescribed. Moderate persistent asthma 11/07/2022 Seasonal allergies 11/07/2022 Bradycardia 03/13/2022 Shortness of breath 03/13/2022 Lab test negative for COVID-19 virus Palpitations 08/09/2020 Overview: +symptomatic PVCs on ROCT Last Assessment & Plan: Symptomatic PVCs which have been effectively suppressed with bisoprolol. I do not believe these are contributing to her clinical presentation at this time. Osteoporosis 03/25/2019 Nephrolithiasis 03/25/2019 Migraine without aura 03/25/2019 Hypertension 03/25/2019 Last Assessment & Plan: Patient's blood pressures are well-controlled on present medical regimen with a reading today of 128/76. Cataract 03/25/2019 Overview: Bilateral Insomnia 03/25/2019 Restless leg syndrome 03/25/2019 Osteoarthritis 03/25/2019 Overview: Knees Allergic rhinitis 03/25/2019 Depression 03/25/2019 Total knee replacement status 03/25/2019 Overview: 2018 Left CAD (coronary artery disease) 03/25/2019 Last Assessment & Plan: Patient is history of nonobstructive coronary artery disease on angiogram completed in 2018. She continues on cardioprotective medical therapy with rosuvastatin. I have reviewed with the patient the importance of a heart healthy lifestyle which includes eating a low-fat low-salt diet, getting regular exercise, maintaining a healthy weight, not smoking, and following up with routine medical care. Vitamin D deficiency 03/25/2019 Aortic atherosclerosis 03/25/2019 Mitral valve regurgitation 03/25/2019 Overview: 11/2018 CAIT: Mild Last Assessment & Plan: Mild to moderate mitral regurgitation. Blood pressure goal less than 130/80. Will plan to repeat echocardiogram in around 6 months. Dilated cardiomyopathy 03/25/2019 Overview: 11/2018 CAIT: severly dilated Left atrium Last Assessment & Plan: Patient has history of a dilated cardiomyopathy. Last echocardiogram was quite sometime ago. She presents today reporting increased leg edema and increased abdominal bloating. She has not had any effect from increased doses of furosemide. We had a long discussion regarding her medical therapies and I decided to switch her furosemide to torsemide 40 mg once a day for increased bioavailability. I will have her repeat labs today and then again in 1 week. She has an echocardiogram scheduled in a few months we will move this appointment up and have a sooner appointment arranged. I will have her continue to monitor her blood pressures and weight at home. I will plan to see her back in the office in a few weeks. Patient advised to seek emergency medical attention by calling 911 if they were to develop severe dyspnea, chest pain that did not resolve with rest or nitroglycerin, or if they were to faint. I've asked the patient to call if they develop worsening symptoms of heart failure such as increased shortness of breath, new or worsening cough, increased swelling in the legs or ankles, or weight gain of more than 2 pounds in one day or 4 pounds in one week. Pulmonary hypertension 02/07/2019 Overview: 11/22/18 CAIT: Mild Last Assessment & Plan: Exercise-induced pulmonary hypertension. She did not respond well to sildenafil. I would defer management of this issue to her mail processing associate. Fortunately her dyspnea on exertion has been stable and is not significantly interfering with her quality of life. Mild persistent asthma 02/07/2019 GERD (gastroesophageal reflux disease) 0 02/07/2019 Resolved Problems Problem Noted Date Resolved Date Anxiety 03/25/2019 08/09/2020 Hyperlipidemia 03/25/2019 08/09/2020 JACKIE (obstructive sleep apnea) 02/07/2019 Immunizations Name Administration Dates Next Due Influenza (> 6 Months) 06/21/2018,08/24/2017 Pneumoccoccal(Adult) Polysaccharide PPSV23 08/24 Tdap 05/10/2012 Family History Medical History Relation Name Comments Heart Disease Father Dementia Mother Relation Name Status Comments Father Mother [...] file Not on file Not on file Last Filed Vital Signs Vital Sign Reading Time Taken Comments Blood Pressure 122/70 06/19/2024 8:59 AM EDT Pulse 77 06/12/2024 8:48 AM EDT Temperature 36.8 ??C (98.3 ??F) 07/06/2021 10:[address] Respiratory Rate 12 07/06/2021 10:45 AM EST Oxygen Saturation 96% 06/12/2024 8:48 AM EDT Inhaled Oxygen Concentration - - Weight 83 kg (183 lb) 06/19/2024 8:59 AM EDT Height 162.6 cm (5' 4 ) 06/19/2024 8:59 AM EDT Body Mass Index 31.41 06/19/2024 8:59 AM EDT Plan of Treatment Health Maintenance Due Date Last Done Comments DEPRESSION SCREEN 1964 HEPATITIS C SCREENING 1970 CHOLESTEROL SCREENING 1972 MAMMOGRAM 1992 COLON CANCER SCREENING 2002 SHINGLES VACCINE (1 of 2) 2002 BONE DENSITY SCREENING 2017 FALL RISK ASSESSMENT 2017 DTAP/TDAP/TD (2 - Td or Tdap) 05/10/2022 05/10/2012 Covid-19 Vaccine (2022-09 4 season) 2024 12/02/2021, 06/10/2021, 06/10/2021, Additional history exists BMI CHECK/ADVISE 08/20/2024 11/09/2022, , 03/13/2022, Additional history exists INFLUENZA (Season Ended) 2025 021, 06/07/2020, 06/21/2018, Additional history exists PNEUMOCOCCAL VACCINE Completed 07/14/2019, 08/24/19 18 Care Teams Cloud Consultant Relationship Specialty Start Date End Date Sherice John MD PCP - General Internal Medicine 01/10/19 Mikal Jones MD [address] [address] Crime Prevention Worker Cardiology 08/06/20 Dante Ghotra NP [address] [address] Nurse Practitioner Cardiology 03/21/22 Marvin Pritchett MD [address] [place] [address] Crime Prevention Worker Cardiology 04/21/22 Shahnaz Sanchez PA-C 300 [facility] [address] [place] [address] Crime Prevention Worker Cardiology 04/21/22
--- OUTSIDE RECORDS SUMMARY | 2024-11-25 13:41 | XMS_ITS | Encounter Summary ---
Author Organization [facility] Address [address] [place] [address] Care Team Providers Care Silo Worker Name Role Phone Sherice John MD Primary Care Provider Unavailab Mikal Rodriguez MD Unavailable Dante Ghotra NP Unavailable [phone] Marvin Pritchett MD Unavailable [phone] Shahnaz Sanchez PA-C Unavailable Encounter Details Date Type Department Care Team Description 03/16/2023 SCAN Medical Records [address] [place] [address] Marquita Mosqueda NP Social History Tobacco Use Types Packs/Day [...] on filedocumented in this encounter Care Teams Silo Worker Relationship Specialty Start Date End Date Sherice John MD PCP - General Internal Medicine 01/10/19 Mikal Jones MD [address] [id number] Rug Dyer Helper Cardiology 08/06/20 Dante Ghotra NP [address] [address] Nurse Practitioner Cardiology 03/21/22 Marvin Pritchett MD [address] [place] [address] Rug Dyer Helper Cardiology 04/21/22 Shahnaz Sanchez PA-C [address] [place] [address] Rug Dyer Helper Cardiology 04/21/22 documented as of this encounter
--- OUTSIDE RECORDS SUMMARY | 2024-11-25 13:41 | XMS_ITS | Encounter Summary ---
Author Organization [facility] Address [address] [place] [address] Care Team Providers Care Salvage Machine Operator Name Role Phone Sherice John MD Primary Care Provider Unavailab Mikal Rodriguez MD Unavailable Dante Ghotra NP Unavailable [phone] Marvin Pritchett MD Unavailable [phone] Shahnaz Sanchez PA-C Unavailable Encounter Details Date Type Department Care Team Description 09/24/2023 Pt. Non Urgent Medical Question Cardio PVC [facility] [address] [facility] [address] [place] [id number] Dante Ghotra NP [address] [place] [address] [phone] Social History Tobacco Use Types Packs/Day Years [...] on filedocumented in this encounter Care Teams Salvage Machine Operator Relationship Specialty Start Date End Date Sherice John MD PCP - General Internal Medicine 01/10/19 Mikal Jones MD 300 [facility] [address] [place] [address] Fingernail Sculpturer Cardiology 08/06/20 Dante Ghotra NP [address] [address] Nurse Practitioner Cardiology 03/21/22 Marvin Pritchett MD 300 [facility] 154 [place] [address] Fingernail Sculpturer Cardiology 04/21/22 Shahnaz Sanchez PA-C [address] [address] Fingernail Sculpturer Cardiology 04/21/22 documented as of this encounter
--- OUTSIDE RECORDS SUMMARY | 2024-11-25 13:41 | XMS_ITS | Encounter Summary ---
Author Organization [facility] Address [address] [place] [address] Care Team Providers Care Factory Process Workers Name Role Phone Sherice John MD Primary Care Provider Unavailab Mikal Rodriguez MD Unavailable Dante Ghotra NP Unavailable [phone] Marvin Pritchett MD Unavailable [phone] Shahnaz Sanchez PA-C Unavailable Encounter Details Date Type Department Care Team Description 06/16/2024 SCAN Medical Records [address] [place] [address] Abstract, Provider Social History Tobacco Use Types [...] Date/Time Associated Diagnosis Comments OUTSIDE LAB Routine 06/12/2024 documented in this encounter Results * OUTSIDE LAB (06/12/2024) Provider Default LAB documented in this encounter Visit Diagnoses Not on filedocumented in this encounter Care Teams Factory Process Workers Relationship Specialty Start Date End Date Sherice John MD PCP - General Internal Medicine 01/10/19 Mikal Jones MD 300 [facility] [address] [place] [address] Loom Overhauler Cardiology 08/06/20 Dante Ghotra NP 300 [facility] [address] [place] [address] Nurse Practitioner Cardiology 03/21/22 Marvin Pritchett MD 300 [facility] 154 [place] [address] Loom Overhauler Cardiology 04/21/22 Shahnaz Sanchez PA-C [address] [address] Loom Overhauler Cardiology 04/21/22 documented as of this encounter
--- OUTSIDE RECORDS SUMMARY | 2024-11-25 13:41 | XMS_ITS | Encounter Summary ---
Author Organization [facility] Address [address] [place] [address] Care Team Providers Care Clinical Dietician Name Role Phone Sherice John MD Primary Care Provider Unavailab Mikal Rodriguez MD Unavailable Dante Ghotra NP Unavailable Marvin Pritchett MD Unavailable Shahnaz Sanchez PA-C Unavailable Encounter Details Date Type Department Care Team Description 03/06/2023 Pt. Non Urgent Medical Question Cardio PVC [facility] [address] [facility] [address] [place] [address] Mikal Jones MD 300 [facility] [address] [place] [address] Social History Tobacco Use Types Packs/Day Years [...] encounter Miscellaneous Notes * Telephone Encounter - Raquel Perez - 03/16/2023 9:03 AM EDT PFT and Pulmonology visit note both in Epic from [facility]. Thank you! * Telephone Encounter - Raquel Perez - 03/16/2023 8:21 AM EDT Faxed request for PFT and pulmonology office notes. Fax confirmed sent 1 page on 03/16/23 @ 8:15pm. * Telephone Encounter - Mikal Jones MD - 03/12/2023 12:03 PM EDT We need the PFTs and pulm notes to advise ISA-am I missing this information somewhere? * Telephone Encounter - Brenda Maurer C.M.A. - 03/06/2023 10:35 AM EDTFrom: Mary Delgado To: Radha Jones Sent: 03/06/2023 10:18 AM EDT Subject: Compounder/inspector insulation communications Hi Dr Jones/ISA Please let me know what the results of communications with Dr Joni Deleon. His office staff says that I should contact my inspector insulation (you), probably because the PFT and Perfusion Scan were normal. However, my oxygen level and heart rate did get very low during the PFT and I have been brenda d to use the oxygen whenever I am mobile. What are the next steps, if any? documented in this encounter Plan of Treatment Not on file documented as of this encounter Visit Diagnoses Not on filedocumented in this encounter Care Teams Clinical Dietician Relationship Specialty Start Date End Date Sherice John MD PCP - General Internal Medicine 01/10/19 Mikal Jones MD [address] [address] Putty Patcher Cardiology 08/06/20 Dante Ghotra NP [address] [address] Nurse Practitioner Cardiology 03/21/22 Marvin Pritchett MD 300 [facility] 154 [place] [address] Putty Patcher Cardiology 04/21/22 Shahnaz Sanchez PA-C [address] [place] [address] Putty Patcher Cardiology 04/21/22 documented as of this encounter
--- OUTSIDE RECORDS SUMMARY | 2024-11-25 13:41 | XMS_ITS | Encounter Summary ---
Author Organization [facility] Address [address] [place] [address] Care Team Providers Care Rim Fire Priming Tool Setter Name Role Phone Sherice John MD Primary Care Provider Unavailab Mikal Rodriguez MD Unavailable Dante Ghotra NP Unavailable Marvin Pritchett MD Unavailable [phone] Shahnaz Sanchez PA-C Unavailable Encounter Details Date Type Department Care Team Description 03/20/2022 Pt. Non Urgent Medical Question Cardio PVC [facility] [address] [facility] [address] [place] [address] Dante Ghotra NP [address] [place] [address] [id number] Social History Tobacco Use Types Packs/Day Years [...] PM EDT documented as of this encounter Miscellaneous Notes * Telephone Encounter - Brenda Maurer C.M.A. - 03/20/2022 9:52 AM EDTFrom: Mary Delgado To: Angel Ghotra Sent: 03/20/2022 9:40 AM EDT Subject: Echo and Halter monitor Harvey Mercado Please contact me about the results of the echo cardiogram and 24 hour halter monitor. I am still experiencing shortness of breath with exertion and sometimes when at rest. I wake up at night coughing. Thank you, Mary Delgado 1950 documented in this encounter Plan of Treatment Not on file documented as of this encounter Visit Diagnoses Not on filedocumented in this encounter Care Teams Rim Fire Priming Tool Setter Relationship Specialty Start Date End Date Sherice John MD PCP - General Internal Medicine 01/10/19 Mikal Jones MD [address] [address] Aircraft Quality Control Inspector Cardiology 08/06/20 Dante Ghotra NP [address] [address] Nurse Practitioner Cardiology 03/21/22 Marvin Pritchett MD [address] [address] Aircraft Quality Control Inspector Cardiology 04/21/22 Shahnaz Sanchez PA-C [address] [address] Aircraft Quality Control Inspector Cardiology 04/21/22 documented as of this encounter
--- OUTSIDE RECORDS SUMMARY | 2024-11-25 13:41 | XMS_ITS | Encounter Summary ---
Author Organization [facility] Address [address] [place] [address] Care Team Providers Care Junior Automation Engineer Name Role Phone Sherice John MD Primary Care Provider Unavailab Mikal Rodriguez MD Unavailable Dante Ghotra NP Unavailable Marvin Pritchett MD Unavailable [phone] Shahnaz Sanchez PA-C Unavailable Reason for Visit * Reason Onset Date Comments other 06/13/2024 Updating informa tion Encounter Details Date Type Department Care Team Description 06/13/2024 Telephone Cardio PVC [facility] 410 2 [facility] [address] [place] [address] Mikal Jones MD 300 [facility] [address] [place], [place] [phone] other (Updating information ) Social History Tobacco Use Types Packs/Day Years [...] Telephone Encounter - Reshma Valderrama NP - 06/13/2024 8:04 PM EDT Done. Thanks * Telephone Encounter - Raquel Ann C.M.A. - 06/13/2024 11:22 AM EDT Reshma, please see message below. * Telephone Encounter - Vanessa Wang - 06/13/2024 10:46 AM EDT Patient calling in to correct some information from her last office visit. Her risk advisor is actually Dr. Jose Deleon at [facility] and her father never had ALS. Please update when possible. documented in this encounter Plan of Treatment Not on file documented as of this encounter Visit Diagnoses Not on filedocumented in this encounter Care Teams Junior Automation Engineer Relationship Specialty Start Date End Date Sherice John MD PCP - General Internal Medicine 01/10/19 Mikal Jones MD [address] [address] Aircraft Maintenance Director Cardiology 08/06/20 Dante Ghotra NP [address] [address] Nurse Practitioner Cardiology 03/21/22 Marvin Pritchett MD [address] [address] Aircraft Maintenance Director Cardiology 04/21/22 Shahnaz Sanchez PA-C [address] [address] Aircraft Maintenance Director Cardiology 04/21/22 documented as of this encounter
--- OUTSIDE RECORDS SUMMARY | 2024-11-25 13:41 | XMS_ITS | Encounter Summary ---
Author Organization [employer] Address [address] [place] [address] 7t [place] [address] Care Team Providers Care Curing Machine Operator Name Role Phone Sherice John MD Primary Care Provider [phone] Encounter Details Date Type Department Care Team (Late st Contact Info) Description 11/24/2024 2:[address] [facility] MEDICAL [address] [place] [address] Sherice John MD [address] [place] [address] Acute bilateral low back pain without sciatica (Primary Dx) Social History Tobacco Use Types [...] the past 12 months, has t he [employer], gas, oil or water [employer] threatened to shut off services in your home? No 06/04/2023 Depression Answer Date Recorded Patient Health Questionnaire-2 Score 0 12/04/2023 Comments Unknown Sex and Gender Information Value Date Recorded Sex Assigned at Female 08/01/2022 12:40 PM EST Legal Sex Female 8:36 PM EDT Gender Identity Female 08/01/2022 12:40 PM EST Sexual Orientation Straight 10/04/2022 3: 13 PM EST documented as of this encounter Progress Notes * Sherice John MD - 11/24/2024 2:20 PM EDT Subjective Patient ID: Mary Delgado is a 74 y.o. female who presents for No chief complaint on file.. HPI Sudden back pain: she just coughed and had sudden pain, felt electric pain down the base of her spine and heard a crack. Had some trouble even trying to stand up. Went to urgent care the next day, they did an xray there and showed an old compression fracture but nothing new. They did also see arthritis. They basically said just check in here. Pain is maybe a little better, but still hard to bend. The pain is quite sharp, no trouble walking.No radiation of the pain. Scheduled for her hip surgery in a couple weeks. Does have appt with [facility] so they'll talk about it then but thinks she's going to cancel the surgeryuntil her back feels better. She is basically just lying flat in order to control the pain. Review of Systems No bowel of bladder dysfunction Objective Physical Exam Patient is alert and oriented, no apparent distress Head normo-cephalic, face symmetric Speech clear, no audible wheezing No respiratory distress, speaking full sentences Affect normal Assessment/Plan Diagnoses and all orders for this visit: Acute bilateral low back pain without sciatica Comments: given increased muscle pain, will do short course of muscle relaxant; pt declines anything stornger. Orders: - cyclobenzaprine (Flexeril) 10 MG tablet; Take 1 tablet (10 mg) by mouth if needed in the morning,at noon, and at bedtime for muscle spasms. documented in this encounter Plan of Treatment Upcoming Encounters Date Type Department Care Team (Late st Contact Info) Description 01/29/2025 10:00 AM EDT Office Visit [facility] MED[facility] [address] [place] [address] Sherice Jhon MD [address] [place] [address] documented as of this encounter Visit Diagnoses Diagnosis Acute bilateral low back pain without sciatica- Primary documented in this encounter Care Teams Curing Machine Operator Relationship Specialty Start Date End Date Sherice John MD [address] [place] [address] PCP - General Internal Medicine 08/08/22 documented as of this encounter
--- OUTSIDE RECORDS SUMMARY | 2024-11-25 13:41 | XMS_ITS | Encounter Summary ---
Author Organization [facility] Address [address] [place] [address] Care Team Providers Care Stone Trimmer Name Role Phone Sherice John MD Primary Care Provider Unavailab Mikal Rodriguez MD Unavailable Dante Ghotra NP Unavailable [phone] Marvin Pritchett MD Unavailable [phone] Shahnaz Sanchez PA-C Unavailable Reason for Visit * Reason Onset Date Comments Holter Monitor 07/06/2023 Holter monitor r esult Encounter Details Date Type Department Care Team Description 07/06/2023 Telephone Cardio PVC [facility] [address] [place] [address] Mikal Jones MD 300 [facility] [address] [place] [address] Holter Monitor (Holter monitor result ) Social History Tobacco Use Types Packs/Day [...] encounter Miscellaneous Notes * Telephone Encounter - Lee Ann Greco R.N. - 07/06/2023 4:28 PM EST Results of 10 day holter monitor from 06/09-06/[address] [facility] * Telephone Encounter - Malena Linn - 07/06/2023 4:17 PM EST Mary Delgado called to see if Dr. Jones had seen the result of the monitor that was ordered by Dr. Tangela Cabrera a doctor in [place] .The Patient states the result is in My chart serg documented in this encounter Plan of Treatment Not on file documented as of this encounter Visit Diagnoses Not on filedocumented in this encounter Care Teams Stone Trimmer Relationship Specialty Start Date End Date Sherice John MD PCP - General Internal Medicine 01/10/19 Mikal Jones MD [address] [address] Coach Professional Athletes Cardiology 08/06/20 Dante Ghotra NP [address] [address] Nurse Practitioner Cardiology 03/21/22 Marvin Pritchett MD 300 [address] [facility] [address] [place] [address] Coach Professional Athletes Cardiology 04/21/22 Shahnaz Sanchez PA-C [address] [address] Coach Professional Athletes Cardiology 04/21/22 documented as of this encounter
--- OUTSIDE RECORDS SUMMARY | 2024-11-25 13:41 | XMS_ITS | Encounter Summary ---
Author Organization [facility] Address [address] [place] [address] Care Team Providers Care Correction Officer Name Role Phone Sherice John MD Primary Care Provider Unavailab Mikal Rodriguez MD Unavailable Dante Ghotra NP Unavailable [phone] Marvin Pritchett MD Unavailable [phone] Shahnaz Sanchez PA-C Unavailable Encounter Details Date Type Department Care Team Description 07/16/2023 Pt. Non Urgent Medical Question Cardio PVC [facility] 410 2 [facility] [address] [place] [address] Mikal Jones MD [address] [place] [address] Social History Tobacco Use Types Packs/Day Years [...] on filedocumented in this encounter Care Teams Correction Officer Relationship Specialty Start Date End Date Sherice John MD PCP - General Internal Medicine 01/10/19 Mikal Jones MD 300 [facility] [address] [place] [address] Double End Production Grinder Cardiology 08/06/20 Dante Ghotra NP 300 [facility] [address] [place] [address] Nurse Practitioner Cardiology 03/21/22 Marvin Pritchett MD 300 [facility] [address] [place] [address] Double End Production Grinder Cardiology 04/21/22 Shahnaz Sanchez PA-C 300 [facility] [address] [place] [address] Double End Production Grinder Cardiology 04/21/22 documented as of this encounter
--- OUTSIDE RECORDS SUMMARY | 2024-11-25 13:41 | XMS_ITS | Encounter Summary ---
Author Organization [facility] Address [address] [place] [address] Care Team Providers Care Before School Babysitter Name Role Phone Sherice John MD Primary Care Provider Unavailab Mikal Rodriguez MD Unavailable Dante Ghotra NP Unavailable [phone] Marvin Pritchett MD Unavailable [phone] Shahnaz Sanchez PA-C Unavailable Encounter Details Date Type Department Care Team Description 04/12/2022 Pt. Non Urgent Medical Question Cardio PVC [facility] [address] [facility] [address] [place] [address] Dante Ghotra NP [address] [place] [phone] Social History Tobacco Use Types Packs/Day Years [...] on filedocumented in this encounter Care Teams Before School Babysitter Relationship Specialty Start Date End Date Sherice John MD PCP - General Internal Medicine 01/10/19 Mikal Jones MD 300 [facility] 154 [place] [address] Business Planning Manager Cardiology 08/06/20 Dante Ghotra NP 300 [facility] 154 [place] [address] Nurse Practitioner Cardiology 03/21/22 Marvin Pritchett MD [address] [address] Business Planning Manager Cardiology 04/21/22 Shahnaz Sanchez PA-C [address] [address] Business Planning Manager Cardiology 04/21/22 documented as of this encounter
--- OUTSIDE RECORDS SUMMARY | 2024-11-25 13:42 | XMS_ITS | Encounter Summary ---
Author Organization [facility] Address [address] [place] [address] Care Team Providers Care Boathouse Keeper Name Role Phone Sherice John MD Primary Care Provider Unavailab Mikal Rodriguez MD Unavailable Dante Ghotra NP Unavailable [phone] Marvin Pritchett MD Unavailable [phone] Shahnaz Sanchez PA-C Unavailable Encounter Details Date Type Department Care Team Description 02/08/2023 Mortgage Protection Specialist Report Medical Records [address] [place] [address] Joni Deleon MD Social History Tobacco Use Types Packs/Day Years [...] In the last 10 days, have stef u been in contact with someone who was confirmed or suspected to have Coronavirus/COVID-19? No / Unsure 01/30/2023 10:27 AM EDT documented as of this encounter Plan of Treatment Not on file documented as of this encounter Visit Diagnoses Not on filedocumented in this encounter Care Teams Boathouse Keeper Relationship Specialty Start Date End Date Sherice John MD PCP - General Internal Medicine 01/10/19 Mikal Jones MD 300 [facility] [address] [place] [address] Head Bander And Liner Operator Cardiology 08/06/20 Dante Ghotra NP 300 [facility] [address] [place] [address] Nurse Practitioner Cardiology 03/21/22 Marvin Pritchett MD 300 [facility] [address] [place] [address] Head Bander And Liner Operator Cardiology 04/21/22 Shahnaz Sanchez PA-C 300 [facility] [address] [place] [address] Head Bander And Liner Operator Cardiology 04/21/22 documented as of this encounter
--- OUTSIDE RECORDS SUMMARY | 2024-11-25 13:42 | XMS_ITS | Encounter Summary ---
Author Organization [facility] Address [address] [place] [address] Care Team Providers Care Dairy Helper Name Role Phone Sherice John MD Primary Care Provider Unavailab Mikal Rodriguez MD Unavailable Dante Ghotra NP Unavailable [phone] Marvin Pritchett MD Unavailable Shahnaz Sanchez PA-C Unavailable Encounter Details Date Type Department Care Team Description 02/19/2019 Release of Information Medical Records [address] [place] [address] Abstract, Provider Social History Tobacco Use Types Packs/Day Years Used Date Smoking Tobacco: Never Smokeless Tobacco: Never Sex Assigned at Date Recorded Not on file Job Start Date Occupation Industry Not on file Not on file Not on file documented as of this encounter Plan of Treatment Not on file documented as of this encounter Visit Diagnoses Not on filedocumented in this encounter Care Teams Dairy Helper Relationship Specialty Start Date End Date Sherice John MD PCP - General Internal Medicine 01/10/19 Mikal Jones MD [address] [place] [address] Floor Refinisher Cardiology 08/06/20 Dante Ghotra NP [address] [place] [address] Nurse Practitioner Cardiology 03/21/22 Marvin Pritchett MD [address] [place] [address] Floor Refinisher Cardiology 04/21/22 Shahnaz Sanchez PA-C [address] [place] [address] Floor Refinisher Cardiology 04/21/22 documented as of this encounter
--- OUTSIDE RECORDS SUMMARY | 2024-11-25 13:42 | XMS_ITS | Encounter Summary ---
Author Organization [facility] Address [address] [place] [address] Care Team Providers Care Electrostatic Painter Name Role Phone Sherice John MD Primary Care Provider Unavailab Mikal Rodriguez MD Unavailable Dante Ghotra NP Unavailable [phone] Marvin Pritchett MD Unavailable [phone] Shahnaz Sanchez PA-C Unavailable Encounter Details Date Type Department Care Team Description 02/21/2023 [facility] Medical Records [address] [place] [id number] [place] [address] Social History Tobacco Use Types Packs/Day Years [...] Name Priority Date/Time Associated Diagnosis Comments OUTSIDE PFT Routine 02/21/2023 documented in this encounter Results * OUTSIDE PFT (02/21/2023) Provider Default PULMONOLOGY documented in this encounter Visit Diagnoses Not on filedocumented in this encounter Care Teams Electrostatic Painter Relationship Specialty Start Date End Date Sherice John MD PCP - General Internal Medicine 01/10/19 Mikal Jones MD 300 [facility] [address] [place] [address] Commercial Development Manager Cardiology 08/06/20 Dante Ghotra NP [address] [address] Nurse Practitioner Cardiology 03/21/22 Marvin Pritchett MD [address] [place] [address] Commercial Development Manager Cardiology 04/21/22 Shahnaz Sanchez PA-C [address] [address] Commercial Development Manager Cardiology 04/21/22 documented as of this encounter
--- OUTSIDE RECORDS SUMMARY | 2024-11-25 13:42 | XMS_ITS | Encounter Summary ---
Author Organization [employer] Address [address] [facility] 7t [place] [address] Care Team Providers Care Pre Planning Advisor Name Role Phone Sherice John MD Primary Care Provider [phone] Encounter Details Date Type Department Care Team (Late st Contact Info) Description 12/07/2023 Orders Only [facility] [address] [place] [address] Sherice John MD [address] [place] [address] Social History Tobacco Use Types Packs/Day Years [...] Description 01/29/2025 10:00 AM EDT Office Visit [facility] MEDICAL [address] [place] [address] Sherice John MD [address] [place] [address] documented as of this encounter Procedures Procedure [...] on filedocumented in this encounter Care Teams Pre Planning Advisor Relationship Specialty Start Date End Date Sherice John MD [address] [place] [address] PCP - General Internal Medicine 08/08/22 documented as of this encounter
--- OUTSIDE RECORDS SUMMARY | 2024-11-25 13:42 | XMS_ITS | Clinical Summary ---
Author Organization [facility] [employer] [facility] Address [address] [place] [address] Phone Care Team Providers Care Liberal Arts And Humanities Chair Name Role Phone Shreice John MD Primary Care Provider [phone] Allergies Active Allergy Reactions Criticality Noted Date [...] Continue diltiazem and mexiletine. Appreciate management from [facility] electrophysiology. Seasonal allergies 11/07/2022 Moderate persistent asthma [...] defer management of this issue to her quotation checker. Fortunately her dyspnea on exertion has been stable and is not significantly interfering with her quality of life. Mild persistent asthma 02/07/2019 GERD (gastroesophageal reflux disease) 9 Encounters Date Type Department Care Team Description 09/19/2024 Telephone [facility] Cardiology [facility] [address] [facility] [address] [place] [address] Racheal Sears MD Appointment (Cardiac MRI) 09/18/2024 Telephone [facility] [address] [facility] [address] [facility] [address] [place] [address] Racheal Sears MD Med Refill; Other 09/11/2024 Telephone [facility] [address] [facility] [address] [place] [address] Racheal Sears MD Pre-operative Clearance 09/05/2024 11:30 AM EST Office Visit [facility] [address] [place] [address] Racheal Sears MD Hypertension, unspecified type (Primary Dx); Dilated cardiomyopathy (CMS/HCC); Chronic diastolic heart failure (CMS/HCC) from Last 3 Months Immunizations Name Administration [...] KNEE REPLACE KIDNEY STONE SURGERY 01/2017 PROCEDURE: FL NEPHROLITHOTOMY REMOVAL CALCULUS; COMMENT: Ureteroscopy/stone removal /stent [...] Td Vaccines (2 - Td or Tdap) 05/10/2022 05/10/2012 Colorectal Cancer Screening: Colonoscopy 07/29/2022 Depression [...] , 06/27/2022, Additional history exists RSV Immunization Adult Patients Completed 05/21/2024 COVID-19 Vaccine Completed 07/25/2024, , [...] age to complete this topic Meningococcal B Vaccine Aged Out No l onger eligible based on patient's age to complete [...] GEMUSE QTc 418 ms GEMUSE P Wave [place] 66 degrees GEMUSE R [place] 65 degrees GEMUSE T [place] 65 degrees GEMUSE ECG Interpretation Normal sinus rhythm Septal infarct , age undetermined Abnormal ECG No previous ECGs available Confirmed by RACHEAL SEARS ([id number]) on 09/08/2024 1:46:46 PM GEMUSE 09/05/2024 11:4 2 AM EST 09/08/2024 1:46 PM EST us Racheal Sears MD ECG ORDERABLES Final Result MATTUSE * Comprehensive metabolic panel (06/25/2024 12:42 PM [...] AM EST Performed at: ??01 - [facility] [address] ??[id number] Work And Family Life Consultant: Trudy Zamudio MD, Phone: ??[phone] us Reshma Valderrama CAPACITY PLANNING ANALYST LAB BLOOD ORDERABLES Final R esult [facility] 1 from Last 3 Months or Most Recently Relevant to Health Maintenance Insurance MEDICARE [facility] Care Teams Liberal Arts And Humanities Chair Relationship Specialty Start Date End Date Sherice John MD [address] [place] [address] PCP - General Internal Medicine 01/10/19
--- OUTSIDE RECORDS SUMMARY | 2024-11-25 13:42 | XMS_ITS | Clinical Summary ---
Author Organization [facility] Address [address] [place] [address] Care Team Providers Care Investigator Vice Name Role Phone Sherice John MD Primary Care Provider [phone] Allergies Active Allergy Reactions Criticality Noted Date [...] age to complete this topic Care Teams Investigator Vice Relationship Specialty Start Date End Date Sherice John MD [address] [place] [address] PCP - General 12/12/18
--- OUTSIDE RECORDS SUMMARY | 2024-11-25 13:42 | XMS_ITS | Data Portability ---
Author Organization [place] [facility], Allergy Address [address] [address] Care Team Providers Care Concrete Block Molder Name Role Phone CARLOS CHILDERS Primary Care Provider [phone] Assessment Encounter Date Assessment Date Assessment LastModified [...] available Establish ed 15 2024 09:30A M Not available Not available Not available Lab [...] eural hearing loss of bilatera l ears 311263961 Active 2019 Sensorin eural hearing loss, bilatera l; Note: Date Diagnose d: 0 2:40 PM (H90.3) Not Available [facility] 4 02:45:12 Disorder of right Eustachi an tube 01443460976 50517 Active 2019 Other specifie d disorder s of Eustachi an tube, right ear; Note: Date Diagnose d: 04/20/2020 4:01 PM (H69.81) Not Available [facility] 4 02:45:15 Impacted cerumen in right ear 69863075606 25509 Active 2022 Impacted cerumen, right ear; Note: Date Diagnose d: 3 11:11 AM (H61.21) Not Available [facility] 4 02:45:12 Acute serous otitis media of right ear 71588865672 41623 Completed 201903/21/2024 Acute serous otitis media, right ear; Note: Date Diagnose d: 0 2:34 PM (H65.01) Not Available [facility] 4 02:45:08 Posterio r rhinorrh ea 08151373 Active 2017 Postnasa l drip; Note: Date Diagnose d: 12/25/2017 2:12 PM (R09.82) Not Available [facility] 4 02:45:11 Allergic rhinitis 93956563 Active 2017 Allergic rhinitis , unspecif ied; Note: Date Diagnose d: 12/25/2017 2:12 PM (J30.9) Not Available [facility] 4 02:45:10 Cough 49242901 Active 2018 Cough; Note: Date Diagnose d: 09/24/2018 11:18 AM (R05) Not Available [facility] 4 02:45:09 Cough variant asthma 621813976 Active 2018 Cough variant asthma; Note: Date Diagnose d: 11/19/2018 11:34 AM (J45.991 ) Not Available [facility] 4 02:45:09 Impacted cerumen of bilatera l ears 77643524545 12408 Active 2018 Impacted cerumen, bilatera l; Note: Date Diagnose d: 09/24/2018 11:18 AM (H61.23) Not Available [facility] 4 02:45:10 Headache 46043097 Active 2017 Headache ; Note: Date Diagnose d: 12/25/2017 2:12 PM (R51) Not Available [facility] 4 02:45:09 Otalgia of right ear 3782710049 Active 2018 Otalgia, right ear; Note: Date Diagnose d: 09/24/2018 12:52 PM (H92.01) Not Available [facility] 4 02:45:14 Obstruct demarco sleep apnea syndrome 14416646 Active 2018 Obstruct demarco sleep apnea (adult) (pediatr ic); Note: Date Diagnose d: 9 11:20 AM (G47.33) Not Available [facility] hospital 4 02:45:14 Itching of skin 708856465 Active 2023 Nata garcia [place] - [facility] 4 09:46:48 Problem Notes None recorded. Medical Equipment None Reported. Allergies Allergen ID Allergen Name Allergen Category Reaction Reaction Severity Criticality Documentation Date Start Date Code Code System Note Provider Name and Address Organization Details Recorded Time 80008 Substance with sulfonami de structure and antibacte rial mechanism of action (substanc e) medicatio n other Not available Not available 01/01/2024 74514 8003 SNOMED React ion: unkno wn, unspe cifie d;; Not Available [facility] 4 00:49:45 Medications Name Sig Start Date [...] mg tablet 02/02 completed Medicati on ID: [id number] D uration Value: 30 Brand Name: amlodipi [...] 5 mg tablet active Medicati on ID: [id number] B rand Name: bisoprol ol fumarate Send Method: E-Prescr ibed Sub s Allowed: subs OK Medic ationGen ericName : bisoprol ol fumarate Not Available Not Available Not Available alprazola m 0.5 mg tablet TAKE 1/2 TO 1 TABLET DAILY NEEDED FOR ANXIETY active Not Available Not Available No t Available gabapenti n 800 mg tablet 02/02 completed Medicati on ID: [id number] D uration Value: 30 Brand Name: gabapent in Send Method: E-Prescr ibed Sub s Allowed: subs OK Speci al Instruct ion: take 1 tablet by mouth at bedtime Medicati onGeneri cName: gabapent in Not Available Not Available Not Available meclizine 25 mg tablet 11/13 completed Medicati on ID: [id number] B rand Name: meclizin e Send Method: E-Prescr ibed Sub s Allowed: subs OK [facility] Not Available Not [...] mg tablet 02/02 completed Medicati on ID: [id number] D uration Value: 30 Brand Name: zolpidem [...] 24 hr 2020 active Medicati on ID: [id number] B rand Name: metoprol ol succinat e Send Method: E-Prescr ibed Sub s Allowed: subs OK Medic ationGen ericName : metoprol ol succinat e Not Available Not Available Not Available lotepredn ol etabonate 0.5 % eye drops,[facility] ADMINIST ER 1 DROP INTO BOTH EYES 4 TIMES DAILY FOR 14 DAYS. active Not Available Not Available No t Available zolpidem 10 mg tablet 2020 active Medicati on ID: [id number] B rand Name: zolpidem Send Method: E-Prescr ibed Sub s Allowed: subs OK Medic ationGen ericName : zolpidem Not Available Not Available Not Available fluticaso ne propionat e 50 mcg/actua tion nasal spray,[facility] pension 2020 active Medicati on ID: [id number] B rand Name: fluticas one propiona te [...] sustained -release 11/13 completed Medicati on ID: [id number] B rand Name: bupropio n HCl Send [...] aerosol inhaler 2020 active Medicati on ID: [id number] B rand Name: Flovent HFA Send Method: E-Prescr ibed Sub s Allowed: subs OK Medic ationGen ericName : Flovent HFA Not Available Not Available Not Available Flovent HFA 220 mcg/actua tion aerosol inhaler 11/13 completed Medicati on ID: [id number] B rand Name: Flovent HFA Send Method: [...] in dose pack active Medicati on ID: [id number] B rand Name: Eliquis DVT-PE Treat 30D [...] Updated DateTime 05/20/2024 162.56 cm 30 kg/m2 75214.66 g Ruperto [place] - [facility] 05/20/2024 09:37:03 Social History None recorded. Functional Status None recorded. Mental Status None recorded. Family History Nothing Reported. Medical History No medical history recorded. Gynecological HistoryNo gynecological history recorded. Obstetrics History GPAL:G 0 P 0 0 0 0 Past Encounters Encounter ID Performer Location Encounter Start Date Encounter Closed Date Diagnosis/Indication Diagnosis SNOMED-CT Code Diagnosis ICD10 Code Diagnosis Note [id number] HAYDEN IRBY MD [facility] [id number] [place] [address] 05/20/2024 09:25:09 05/20/2024 09:48:11 Itching of skin 369389099 L29.9 Health Concerns Section Related Observation LastModified by Organization Detai ls LastModified Time None Recorded Concern Status LastModified by Organization Details LastModified Time None Recorded Advance Directives Directive None Recorded Payers Encounter Date Sequence Insurance Name Policy Number Policy Adan Covered Member ID Adan Member ID Guarantor Name 05/20/2024 1 [place]ICARE [place] [facility] Mary Delgado [id number] Mary Delgado 05/20/2024 2 [facility] INDEMNITY PLAN - UNICARE [id number] Mary Delgado [id number] Mary Delgado Notes Date Note Type Note Provider Name and Address Organization Details Recorded Time 05/20/2024 text/html 74 year old female presents today for an ear cleaning.No specific concerns today. She does have some itching at the ear canal opening. No drainage or pain. HAYDEN BEARDEN MD [address] [place] [address], [place], [address], [place] - [facility] 05/20/2024 10:12:08 OBGyn Episode No OBEpisode recorded.
--- OUTSIDE RECORDS SUMMARY | 2024-11-25 13:42 | XMS_ITS | Encounter Summary ---
Author Organization [employer] Address [address] [facility] [address] [place] [address] Care Team Providers Care Reserve Officer Name Role Phone Sherice John MD Primary Care Provider [phone] Encounter Details Date Type Department Care Team (Late st Contact Info) Description 12/19/2023 Orders Only [place] [facility] [address] [place] [address] Sherice John MD [address] [place] [address] Social History Tobacco Use Types Packs/Day Years [...] Description 01/29/2025 10:00 AM EDT Office Visit [facility] MEDICAL [address] [place] [address] Sherice John MD [address] [place] [address] documented as of this encounter Procedures Procedure Name Priority Date/Time Associated Diagnosis Comments XR CHEST 2 VIEWS Routine 12/11/2023 11:11 AM EDT documented in this encounter Results * XR Chest 2 Views (12/11/2023 11:11 AM EDT) Anatomical Region Laterality Modality Chest Radiographic Tami ging us Sherice John MD IMG XR PROCEDURES Final Result documented in this encounter Visit Diagnoses Not on filedocumented in this encounter Care Teams Reserve Officer Relationship Specialty Start Date End Date Sherice John MD [address] [place] [address] PCP - General Internal Medicine 08/08/22 documented as of this encounter
--- OUTSIDE RECORDS SUMMARY | 2024-11-25 13:42 | XMS_ITS | Encounter Summary ---
Author Organization [facility] Address [address] [place] [address] Care Team Providers Care Commercial Loan Specialist Name Role Phone Sherice John MD Primary Care Provider Unavailab Mikal Rodriguez MD Unavailable Dante Ghotra NP Unavailable [phone] Marvin Pritchett MD Unavailable [phone] Shahnaz Sanchez PA-C Unavailable Encounter Details Date Type Department Care Team Description 03/01/2023 SCAN Medical Records [address] [place] [id number] [facility] Social History Tobacco Use Types Packs/Day Years [...] on filedocumented in this encounter Care Teams Commercial Loan Specialist Relationship Specialty Start Date End Date Sherice John MD PCP - General Internal Medicine 01/10/19 Mikal Jones MD [address] [facility] [address] [place] [address] Ichthyologist Cardiology 08/06/20 Dante Ghotra NP [address] [facility] [address] [place] [address] Nurse Practitioner Cardiology 03/21/22 Marvin Pritchett MD [address] [facility] [address] [place] [address] Ichthyologist Cardiology 04/21/22 Shahnaz Sanchez PA-C [address] [facility] [address] [place] [address] Ichthyologist Cardiology 04/21/22 documented as of this encounter
--- OUTSIDE RECORDS SUMMARY | 2024-11-25 13:42 | XMS_ITS | Clinical Summary ---
Author Organization [employer] Address [address] [place] [address] 7t [place] [address] Care Team Providers Care Anode Rebuilder Name Role Phone Sherice John MD Primary Care Provider [phone] Allergies Active Allergy Reactions Criticality Noted Date Comments Hydromorphone 07/11/2022 Patient has confusion on this medication. Sulfa Antibiotics Rash Low 07/11/2022 Medications SUMAtriptan (Imitrex) 100 MG tablet 1 tablet. 05/12/20 19 Active calcium carbonate (Os-Devin) 1250 (500 Ca) MG tablet 1 tablet in the morning. Active Multiple Vitamins-Iron (MULTIPLE VITAMIN/IRON PO) Take 1 tablet by mouth in the morning. Active metroNIDAZOLE (Metrocream) 0.75 % cream APPLY TOPICALLY TO FACE TWICE DAILY 01/20/20 22 Active levalbuterol (Xopenex) 0.63 MG/3ML nebulizer solution Take 3 mL by nebulization every 4 (four) hours if needed for wheezing. 72 mL 2 12/05/19 23 Active levalbuterol (Xopenex) 45 MCG/ACT inhaler Inhale 1 puff every 4 (four) hours if needed for wheezing. 15 g 1 12/22/19 23 Active sertraline (Zoloft) 100 MG tablet Take 1.5 tablets (150 mg) by mouth in the morning. 135 tablet 3 03/26/20 23 Active lansoprazole (Prevacid) [address] capsuleIndicati ons:Gastroesoph ageal reflux disease, unspecified whether esophagitis present Take 1 capsule (30 mg) by mouth before breakfast. 30 capsule 11 06/05/20 23 Active dilTIAZem CD (Cardizem CD) 120 MG 24 hr capsule Take 120 mg by mouth Once per day. Per cardiology 09/12/19 24 Active oxygen (O2) gas by Other route. Active Cholecalciferol (VITAMIN D3 PO) Take by mouth. Active Eliquis 5 MG tablet TAKE 1 TABLET BY MOUTH TWICE A DAY 180 tablet 3 12/03/19 24 Active azelaic acid (Finacea) 15 % gel APPLY A THIN LAYER TO AFFECTED AREAS DIRECTED. 10/25/19 24 Active rosuvastatin (Crestor) 20 MG tablet TAKE 1 TABLET BY MOUTH EVERY DAY 90 tablet 3 12/24/19 24 Active ALPRAZolam (Xanax) 0.5 MG tablet TAKE 1/2 TO 1 TABLET DAILY NEEDED FOR ANXIETY 02/20/20 24 Active mexiletine (Mexitil) 150 MG capsule Take 150 mg by mouth 2 times daily. Active sertraline (Zoloft) 50 MG tablet TAKE 1 TABLET BY MOUTH EVERY DAY WITH 100MG 01/31/20 24 Active tiotropium (Spiriva Respimat) 2.5 MCG/ACT inhalerIndicati ons:Moderate persistent asthma without complication INHALE 2 PUFFS IN THE MORNING 4 each 04/01/20 24 2024 Active gabapentin (Neurontin) 400 MG capsuleIndicati ons:Primary insomnia Take 3 capsules (1,200 mg) by mouth at bedtime. 270 capsule 3 04/24/20 24 2024 Active acetaminophen (Tylenol 8 Hour) 650 MG ER tablet Take 1,300 mg by mouth every 8 (eight) hours if needed. Active benzonatate (Tessalon) 200 MG capsule TAKE 1 CAPSULE BY MOUTH TWICE A DAY NEEDED COUGH 04/24/20 Active traZODone (Desyrel) 50 MG tablet Take 50 mg by mouth if needed at bedtime for sleep. 05/22/20 24 Active Restasis 0.05 % ophthalmic emulsionIndicat ions:Keratitis sicca, bilateral ADMINISTER 1 DROP INTO BOTH EYES 2 TIMES DAILY. 180 mL 3 08/07/20 24 Active furosemide (Lasix) 40 MG tablet Take 40 mg by mouth Once per day. 06/27/20 24 Active lisinopril 20 MG tabletIndicatio ns:Essential hypertension TAKE 1 TABLET BY MOUTH ONCE A DAY 180 tablet 1 09/02/19 25 Active raNITIdine HCl (RANITIDINE 75 PO) Take 150 mg by mouth. 05/02/20 18 Active empagliflozin (Jardiance) 10 MG Take 10 mg by mouth in the morning. 09/05/19 25 Active cyclobenzaprine (Flexeril) 10 MG tabletIndicatio ns:Acute bilateral low back pain without sciatica Take 1 tablet (10 mg) by mouth if needed in the morning, at noon, and at bedtime for muscle spasms. 30 tablet 11/25/19 25 2024 Active denosumab (Prolia) 60 MG/ML solution prefilled syringe INJECT 1 SYRINGE EVERY 6 MONTHS 1 mL 3 12/04/19 24 2024 Discontinued BENZONATATE PO Take by mouth as needed 2024 Discontinued fluticasone (Flonase) 50 MCG/ACT nasal spray 2 SPRAY INTRANASALLY DAILY FOR 30 DAYS 2024 Discontinued Active Problems Problem Noted Date Diagnosed Date [...] Open leg wound, left, initial encounter 04/29/20 Overview (04/29/2024): Tiny, on video visit appears [...] will f/up with both her pulm and network contractor , continue daily weights and report if greater than 2 lb wt gain day to day or 5 lbs in one week. Self monitor closely for any new open wounds or bleeding as she is taking Eliquis 5 mg PO BID d/t hx PE and pulm HTN, ?cardiomyopathy, ? CHF. Recommended schedule her pulm and network contractor followup visits soon and agrees to do [...] EDT): Encouraged to keep current with her feather separator and network contractor given her multple complex pulm and cardio health diagnoses and history. Savannah's bp somewhat elevated and will self monitor bp/pulse and 02 sat daily and make/keep PCP, pulm and network contractor followup visits and agrees to consult with reg shoelace tipping machine operator for dietary advice to help with [...] on the results of her echocardiogram from [facility] and discussed with her if there are actionable findings. I did encourage her to follow-up with her new feather separator to determine if there are further investigations or treatment warranted for pulmonary hypertension. 11/22/18 CAIT: Mild Assessment & Plan (06/25/2024 8:30 PM EST): Followed by cardiology and also pulm HTN specialist in [place] Dr. Tangela Deleon. See HPI, encouraged to f/up both with her network contractor who is prescribing her torsemide and with [...] Encounters Date Type Department Care Team Description 11/24/2024 2:20 PM EDT Telemedicine [address] [address] Sherice John MD Acute bilateral low back pain without sciatica (Primary Dx) 11/24/2024 Travel 11/17/[address] [address] Sherice John MD Back Pain 11/03/2024 10:00 AM EDT Telemedicine [address] [address] Sherice John MD Syncope, unspecified syncope type (Primary Dx) 11/02/2024 Travel 09/23/2024 12:00 PM EST Office Visit [address] [address] Sherice John MD Syncope, unspecified syncope type (Primary Dx); Pulmonary hypertension (CMS/HCC); Essential hypertension; Multiple subsegmental pulmonary emboli without acute cor pulmonale (CMS/HCC); Generalized anxiety disorder 09/23/2024 Orders Only [place] [facility] [address] [place] [address] Sherice John MD 09/23/2024 Telephone [facility] MEDICAL [address] [place] [address] Sherice John MD Medical Records request 09/02/2024 Refill [facility] MEDICAL [address] [place] [address] Sherice John MD Essential hypertension from Last 3 Months Immunizations Name Administration [...] 01/29/2025 10:00 AM EDT Office Visit [facility] [address] [place] [address] Sherice John MD [address] [place] [address] Health Maintenance Due Date Last Done Comments [...] Screening 09/23/2025 09/23/2024 Mammogram 12/31/2025 01/01/2024, 12/18, 01/01/2024, Additional history exists Lipid Panel 09/07/2027 09/07/2022, [...] Procedure Name Priority Date/Time Associated Diagnosis Comments VASC US CAROTID ARTERY DUPLEX BILATERAL Urgent 11/05/2024 Syncope, unspecified syncope type MR BRAIN WO CONTRAST Routine 10/22/2024 Syncope, unspecified syncope type HM COLONOSCOPY Routine 05/06/2024 1:27 PM EDT BI MAMMOGRAM SCREENING TOMOSYNTHESIS BILATERAL Routine 01/01/2024 2:48 PM EDT LIPID PANEL, STANDARD Routine 09/07/2022 12:08 PM EST High cholesterol PAP SMEAR Routine 02/01/2016 12:00 AM EDT HEPATITIS C ANTIBODY (EXTERNAL RESULTS ONLY) Routine 08/20/2011 3:22 PM EST from Last 3 Months or Most Recently Relevant to Health Maintenance Results * Vascular US carotid artery duplex bilateral (11/05/2024) us Sherice John MD CV VASCULAR PROCEDURES Final Res ult * MR Brain w/o Contrast (10/22/2024) Anatomical Region Laterality Modality Brain Magnetic Resonan ce us Sherice John MD IMG MRI PROCEDURES Final Result * Hm Colonoscopy (05/06/2024 1:27 PM EDT) us Sherice John MD HEALTH MAINTENANCE Final Result * BI Mammogram Screening Tomosynthesis Bilateral (01/01/2024 2:48 PM EDT) Anatomical Region Laterality Modality Breast Bilateral Mammography us Sherice John MD IMG BI PROCEDURES Final Result * Lipid panel (09/07/2022 12:08 PM EST) Cholesterol, Total 164 (<200) MG/DL [facility] Triglyceride (mg/dL) in Serum/Plasma 83 (<150) MG/DL [facility] HDL Cholesterol 75 (>39) MG/DL [facility] LDL Cholesterol, Calculated 72 (0-130) MG/DL [facility] Non HDL Chol. (LDL+VLDL) 89 (<160) MG/DL [facility] Comment: Testing performed or reported by [facility], a Service of [facility], [address] [place] [address] Lulu Masters MD, Turning Sander Operator [facility]# [id number] Blood Venous blood specimen / Unknown 09/07/2022 12:08 PM EST 09/07/2022 12:10 PM EST Sherice John MD LAB BLOOD ORDERABLES Final Resul t [facility] [address] [place] [id number] * Pap Smear (02/01/2016 12:00 AM EDT) Swab Historical Provider LAB CYTOLOGY ORDERABLES F inal Result * Hepatitis C Antibody (08/20/2011 3:22 PM EST) Hepatitis C Antibody Nonreactive Blood 08/20/2011 3:22 PM EST Historical Provider POINT OF CARE TEST ENTER/ EDIT ORDERABLES Final Result from Last 3 Months or Most Recently Relevant to Health Maintenance Insurance [facility] Member Subscriber Plan / Payer (Ef fective 2022-Present) Name:Mary Delgado Relation to Subscriber:Self Name:Mary Delgado Payer ID:Not on file Type:Not on file Address: [address] [id number] MEDICARE Care Teams Anode Rebuilder Relationship Specialty Start Date End Date Sherice John MD [address] [place] [id number] PCP - General Internal Medicine 08/08/22
--- OUTSIDE RECORDS SUMMARY | 2024-11-25 13:42 | XMS_ITS | Encounter Summary ---
Author Organization [facility] Address [address] [place] [address] Care Team Providers Care Irrigationist Name Role Phone Sherice John MD Primary Care Provider Unavailab Mikal Rodriguez MD Unavailable Dante Ghotra NP Unavailable Marvin Pritchett MD Unavailable Shahnaz Sanchez PA-C Unavailable Reason for Visit * Reason Onset Date Comments medication problems 02/11/2019 Encounter Details Date Type Department Care Team Description 02/11/2019 Telephone Pulmonology - [place] 175 [facility] [address] [place] [address] Monae Reece MD 175 [place] [address] medication problems Social History Tobacco Use Types Packs/Day Years Used Date Smoking Tobacco: Never Smokeless Tobacco: Never Sex Assigned at Date Recorded Not on file Job Start Date Occupation Industry Not on file Not on file Not on file documented as of this encounter Miscellaneous Notes * Telephone Encounter - Stu Sampson - 02/11/2019 10:26 AM EDT Patient states that while talking with Dr. Reece at her last appointment that they were talking about her getting a new type of inhaler. She is calling in today to check to see if there is a new inhaler that he wants her to use or if he wants her to stay with her old one. Please call her about this.Please call her [phone]. documented in this encounter Plan of Treatment Not on file documented as of this encounter Visit Diagnoses Not on filedocumented in this encounter Care Teams Irrigationist Relationship Specialty Start Date End Date Sherice John MD PCP - General Internal Medicine 01/10/19 Mikal Jones MD 300 [facility] [address] [place] [address] Sales Project Coordinator Cardiology 08/06/20 Dante Ghotra NP 300 [facility] [address] [place] [address] Nurse Practitioner Cardiology 03/21/22 Marvin Pritchett MD 300 [facility] [address] [place] [address] Sales Project Coordinator Cardiology 04/21/22 Shahnaz Sanchez PA-C 300 [facility] [address] [place] [address] Sales Project Coordinator Cardiology 04/21/22 documented as of this encounter
--- OUTSIDE RECORDS SUMMARY | 2024-11-25 13:42 | XMS_ITS | Encounter Summary ---
Author Organization [facility] Address [address] [place] [address] Care Team Providers Care Verification Specialist Name Role Phone Sherice John MD Primary Care Provider Unavailab Mikal Rodriguez MD Unavailable Dante Ghotra NP Unavailable [phone] Marvin Pritchett MD Unavailable [phone] Shahnaz Sanchez PA-C Unavailable Encounter Details Date Type Department Care Team Description 01/26/2023 SCAN Medical Records [address] [place] [address] [facility] Social History Tobacco Use Types Packs/Day Years [...] Name Priority Date/Time Associated Diagnosis Comments OUTSIDE ECHO Routine 01/26/2023 documented in this encounter Results * OUTSIDE ECHO (01/26/2023) Provider Abstract CARDIOLOGY documented in this encounter Visit Diagnoses Not on filedocumented in this encounter Care Teams Verification Specialist Relationship Specialty Start Date End Date Sherice John MD PCP - General Internal Medicine 01/10/19 Mikal Jones MD [address] [place] [address] [address] [place] [address] Master Brewer Cardiology 08/06/20 Dante Ghotra NP [address] [address] Nurse Practitioner Cardiology 03/21/22 Marvin Pritchett MD [address] [address] Master Brewer Cardiology 04/21/22 Shahnaz Sanchez PA-C [address] [address] Master Brewer Cardiology 04/21/22 documented as of this encounter
--- OUTSIDE RECORDS SUMMARY | 2024-11-25 13:42 | XMS_ITS | Encounter Summary ---
Author Organization [employer] Address 75 [facility] 7t [place] [address] Care Team Providers Care Concentrator Operator Name Role Phone Sherice John MD Primary Care Provider [phone] Encounter Details Date Type Department Care Team (Late st Contact Info) Description 07/31/2023 Orders Only [facility] [address] [place] [address] Sherice John MD 73 [place] [address] Social History Tobacco Use Types Packs/Day Years [...] Description 01/29/2025 10:00 AM EDT Office Visit [facility] MEDICAL 73 [place] [address] Sherice John MD 73 [place] [address] documented as of this encounter Procedures Procedure Name Priority Date/Time Associated Diagnosis Comments TSH Routine 07/30/2023 documented in this encounter Results * TSH (07/30/2023) Blood Venous blood specimen / Unknown us Sherice John MD LAB BLOOD ORDERABLES Edited Resu lt - Final documented in this encounter Visit Diagnoses Not on filedocumented in this encounter Care Teams Concentrator Operator Relationship Specialty Start Date End Date Sherice John MD [address] [place] [address] PCP - General Internal Medicine 08/08/22 documented as of this encounter
--- OUTSIDE RECORDS SUMMARY | 2024-11-25 13:42 | XMS_ITS | Encounter Summary ---
Author Organization [employer] Address 75 [facility] 7t [place] [address] Care Team Providers Care Perioperative Manager Name Role Phone Sherice John MD Primary Care Provider [phone] Encounter Details Date Type Department Care Team (Late st Contact Info) Description 01/16/2024 Orders Only [facility] MEDICAL [address] [place] [address] ProviderKiersten MD Social History Tobacco Use Types Packs/Day [...] Description 01/29/2025 10:00 AM EDT Office Visit [facility] MEDICAL 73 [place] [address] Sherice John MD 73 [place] [address] documented as of this encounter Procedures Procedure Name Priority Date/Time Associated Diagnosis Comments TRANSTHORACIC ECHO (TTE) COMPLETE Routine 01/03/2024 4:27 AM EDT documented in this encounter Results * Transthoracic echo (TTE) complete (01/03/2024 4:27 AM EDT) us Historical Provider CV ECHO PROCEDURES Final Result documented in this encounter Visit Diagnoses Not on filedocumented in this encounter Care Teams Perioperative Manager Relationship Specialty Start Date End Date Sherice John MD [address] [place] [address] PCP - General Internal Medicine 08/08/22 documented as of this encounter
--- OUTSIDE RECORDS SUMMARY | 2024-11-25 13:42 | XMS_ITS | Encounter Summary ---
Author Organization [employer] Address 75 [facility] 7t [place] [address] Care Team Providers Care Last Sawyer Name Role Phone Sherice John MD Primary Care Provider [phone] Encounter Details Date Type Department Care Team (Late st Contact Info) Description 08/25/2023 Orders Only [facility] [address] [place] [address] Sherice John MD 73 [place] [address] Social History Tobacco Use Types Packs/Day Years [...] Description 01/29/2025 10:00 AM EDT Office Visit [facility] MEDICAL [address] [place] [address] Sherice John MD 73 [place] [address] documented as of this encounter Procedures Procedure Name Priority Date/Time Associated Diagnosis Comments XR CHEST 2 VIEWS Routine 08/17/2023 documented in this encounter Results * XR Chest 2 Views (08/17/2023) Anatomical Region Laterality Modality Chest Radiographic Tami ging Sherice John MD IMG XR PROCEDURES Edited Result - Final documented in this encounter Visit Diagnoses Not on filedocumented in this encounter Care Teams Last Sawyer Relationship Specialty Start Date End Date Sherice John MD 73 [place] [address] PCP - General Internal Medicine 08/08/22 documented as of this encounter
--- OUTSIDE RECORDS SUMMARY | 2024-11-25 13:42 | XMS_ITS | Encounter Summary ---
Author Organization [employer] Address 75 [facility] 7t [place] [address] Care Team Providers Care Dry Press Operator Helper Name Role Phone Sherice John MD Primary Care Provider [phone] Encounter Details Date Type Department Care Team (Late st Contact Info) Description 05/14/2024 Orders Only [facility] [address] [place] [address] Sherice John MD 73 [place] [address] Social History Tobacco Use Types Packs/Day Years [...] AM EDT Office Visit [facility] MEDICAL 73 [place] [address] Sherice John MD 73 [place] [address] documented as of this encounter Procedures Procedure Name Priority Date/Time Associated Diagnosis Comments PATHOLOGY REPORT (HISTOPATHOLOGY) Routine 05/06/2024 11:01 AM EDT PATHOLOGY REPORT (HISTOPATHOLOGY) Routine 05/05/2024 11:01 AM EDT documented in this encounter Results * Pathology Report (Histopathology) (05/06/2024 11:01 AM EDT) Tissue Sherice John MD LAB PATHOLOGY ORDERABLES Final R esult * Pathology Report (Histopathology) (05/05/2024 11:01 AM EDT) Tissue Sherice John MD LAB PATHOLOGY ORDERABLES Final R esult documented in this encounter Visit Diagnoses Not on filedocumented in this encounter Care Teams Dry Press Operator Helper Relationship Specialty Start Date End Date Sherice John MD 73 [place] [address] PCP - General Internal Medicine 08/08/22 documented as of this encounter
--- OUTSIDE RECORDS SUMMARY | 2024-11-25 13:42 | XMS_ITS | Encounter Summary ---
Author Organization [employer] Address 75 [facility] 7t [place] [address] Care Team Providers Care Equipment Service Engineer Name Role Phone Sherice John MD Primary Care Provider Encounter Details Date Type Department Care Team (Late st Contact Info) Description 10/01/2023 Orders Only [facility] [address] [place] [address] Sherice John MD 73 [place] [address] Social History Tobacco Use Types Packs/Day Years [...] Description 01/29/2025 10:00 AM EDT Office Visit [facility] MEDICAL 73 [place] [address] Sherice John MD 73 [place] [address] documented as of this encounter Procedures Procedure Name Priority Date/Time Associated Diagnosis Comments CBC WITH AUTO DIFFERENTIAL Routine 10/01/2023 documented in this encounter Results * CBC auto differential (10/01/2023) Blood Venous blood specimen / Unknown us Sherice John MD LAB BLOOD ORDERABLES Edited Resu lt - Final documented in this encounter Visit Diagnoses Not on filedocumented in this encounter Care Teams Equipment Service Engineer Relationship Specialty Start Date End Date Sherice John MD 73 [place] [address] PCP - General Internal Medicine 08/08/22 documented as of this encounter
--- OUTSIDE RECORDS SUMMARY | 2024-11-25 13:42 | XMS_ITS | Encounter Summary ---
Author Organization [facility] Address [address] [place] [address] Care Team Providers Care Slip Cover Sewer Name Role Phone Sherice John MD Primary Care Provider Unavailab Mikal Rodriguez MD Unavailable Dante Ghotra NP Unavailable [phone] Marvin Pritchett MD Unavailable [phone] Shahnaz Sanchez PA-C Unavailable Encounter Details Date Type Department Care Team Description 06/25/2019 Old Medical Records Medical Records [address] [place] [id number] Abstract, Provider Social History Tobacco Use Types [...] on filedocumented in this encounter Care Teams Slip Cover Sewer Relationship Specialty Start Date End Date Sherice John MD PCP - General Internal Medicine 01/10/19 Mikal Jones MD [address] [address] Window Caser Cardiology 08/06/20 Dante Ghotra NP [address] [phone] Nurse Practitioner Cardiology 03/21/22 Marvin Pritchett MD 300 [facility] 154 [place] [address] Window Caser Cardiology 04/21/22 Shahnaz Sanchez PA-C [address] [place] [address] Window Caser Cardiology 04/21/22 documented as of this encounter
--- OUTSIDE RECORDS SUMMARY | 2024-11-25 13:42 | XMS_ITS | Encounter Summary ---
Author Organization [facility] Address [address] [place] [address] Care Team Providers Care Digester Capper Name Role Phone Sherice John MD Primary Care Provider Unavailab Mikal Rodriguez MD Unavailable Dante Ghotra NP Unavailable Marvin Pritchett MD Unavailable Shahnaz Sanchez PA-C Unavailable Encounter Details Date Type Department Care Team Description 01/02/2023 Pt. Non Urgent Medical Question Cardio PVC [facility] [address] 2 [facility] [address] [place] [phone] Mikal Jones MD 300 [facility] [address] [place] [address] Social History Tobacco Use Types Packs/Day Years [...] Telephone Encounter - Brenda Maurer C.M.A. - 01/02/2023 1:47 PM EDTFrom: Mary Delgado To: Radha Jones Sent: 01/02/2023 12:54 PM EDT Subject: Pulmonary Emboli, PVCs, Pulmonary Hypertension Hi Dr Jones, I continue to experience SOB and fatigue whenever I exercise. I am having more PVCs. I need an appointment sometime soon to go over my symptoms and a plan forward. 1.Please be aware that I am currently seeing Dr Marlo Herrera??kana at [facility]. 2.Dr Herrera??kana has referred me for Pulmonary Rehab. 3.I have an echocardiogram at [facility] on January 26. 4.I am under the care of Dr Sotelo, lumber sticker, at [facility]. My preliminary results are on My Chart. 5.I have a new patient appointment with Dr Kirk Deleon, code inspector, at [facility] on January. Thank you, documented in this encounter Plan of Treatment Not on file documented as of this encounter Visit Diagnoses Not on filedocumented in this encounter Care Teams Digester Capper Relationship Specialty Start Date End Date Sherice John MD PCP - General Internal Medicine 01/10/19 Mikal Jones MD [address] [address] Machine Quilt Stuffer Cardiology 08/06/20 Dante Ghotra NP [address] [address] Nurse Practitioner Cardiology 03/21/22 Marvin Pritchett MD [address] [address] Machine Quilt Stuffer Cardiology 04/21/22 Shahnaz Sanchez PA-C [address] [address] Machine Quilt Stuffer Cardiology 04/21/22 documented as of this encounter
--- OUTSIDE RECORDS SUMMARY | 2024-11-25 13:42 | XMS_ITS | Encounter Summary ---
Author Organization [facility] Address [address] [place] [address] Care Team Providers Care Homicide Squad Lieutenant Name Role Phone Sherice John MD Primary Care Provider Unavailab Mikal Rodriguez MD Unavailable Dante Ghotra NP Unavailable Marvin Pritchett MD Unavailable Shahnaz Sanchez PA-C Unavailable Reason for Visit * Reason Onset Date Comments Medical Records 01/30/2023 Encounter Details Date Type Department Care Team Description 01/30/2023 Telephone Cardio PVC [facility] [address] [facility] [address] [place] [phone] Mikal Jones MD [address] [place] [address] Medical Records Social History Tobacco Use Types Packs/Day Years [...] encounter Miscellaneous Notes * Telephone Encounter - Sriram Cust - 01/30/2023 12:01 PM EDT Patient is requesting visit notes be sent to her mobile home servicer (Joni Deleon at [facility]). documented in this encounter Plan of Treatment Not on file documented as of this encounter Visit Diagnoses Not on filedocumented in this encounter Care Teams Homicide Squad Lieutenant Relationship Specialty Start Date End Date Sherice John MD PCP - General Internal Medicine 01/10/19 Mikal Jones MD 300 [facility] [address] [place] [address] Prototype Machinist Cardiology 08/06/20 Dante Ghotra NP 300 [facility] [address] [place] [address] Nurse Practitioner Cardiology 03/21/22 Marvin Pritchett MD [address] [place] [address] Prototype Machinist Cardiology 04/21/22 Shahnaz Sanchez PA-C [address] [place] [address] Prototype Machinist Cardiology 04/21/22 documented as of this encounter
--- OUTSIDE RECORDS SUMMARY | 2024-11-25 13:42 | XMS_ITS | Encounter Summary ---
Author Organization [employer] Address 75 [facility] 7t [place] [address] Care Team Providers Care Vegetables Cook Name Role Phone Sherice John MD Primary Care Provider [phone] Encounter Details Date Type Department Care Team (Late st Contact Info) Description 01/07/2024 Orders Only [facility] [address] [place] [address] Sherice John MD 73 [place] [address] Social History Tobacco Use Types Packs/Day Years [...] Description 01/29/2025 10:00 AM EDT Office Visit [facility] MEDICAL [address] [place] [address] Sherice John MD 73 [place] [address] documented as of this encounter Procedures Procedure [...] on filedocumented in this encounter Care Teams Vegetables Cook Relationship Specialty Start Date End Date Sherice John MD 73 [place] [address] PCP - General Internal Medicine 08/08/22 documented as of this encounter
--- OUTSIDE RECORDS SUMMARY | 2024-11-25 13:42 | XMS_ITS | Encounter Summary ---
Author Organization [facility] Address [address] [place] [address] Care Team Providers Care Office Manager Name Role Phone Sherice John MD Primary Care Provider Unavailab Mikal Rodriguez MD Unavailable Dante Ghotra NP Unavailable [phone] Marvin Pritchett MD Unavailable Shahnaz Sanchez PA-C Unavailable Encounter Details Date Type Department Care Team Description 06/14/2019 Pt. Non Urgent Medical Question Pulmonology - [place] 175 [facility] 200 [place] [phone] Monae Reece MD 175 [place] [phone] Social History Tobacco Use Types Packs/Day Years [...] on filedocumented in this encounter Care Teams Office Manager Relationship Specialty Start Date End Date Sherice John MD PCP - General Internal Medicine 01/10/19 Mikal Jones MD 300 [facility] [address] [place], [place] [phone] Power Electronics Engineer Cardiology 08/06/20 Dante Ghotra NP 300 [facility] [address] [place] [address] Nurse Practitioner Cardiology 03/21/22 Marvin Pritchett MD [address] [address] Power Electronics Engineer Cardiology 04/21/22 Shahnaz Sanchez PA-C [address] [address] Power Electronics Engineer Cardiology 04/21/22 documented as of this encounter
--- OUTSIDE RECORDS SUMMARY | 2024-11-25 13:42 | XMS_ITS | Encounter Summary ---
Author Organization [employer] Address [address] [place] [address] 7t [place] [address] Care Team Providers Care Nuclear Weapons Mechanical Specialist Name Role Phone Sherice Jonh MD Primary Care Provider [phone] Reason for Visit * Reason Onset Date Comments Rx needs clairification 04/22/2024 Gabapent in Rx needs clarification Encounter Details Date Type Department Care Team (Late st Contact Info) Description 04/22/2024 Refill G[facility] MEDICAL [address] [place] [address] Sherice John MD 73 [place] [address] Primary insomnia Social History Tobacco Use Types [...] 01/29/2025 10:00 AM EDT Office Visit [facility] MEDICAL [address] [place] [address] Sherice John MD 73 [place] [address] documented as of this encounter Visit Diagnoses Diagnosis Primary insomnia Persistent disorder of initiating or maintaining sleep documented in this encounter Care Teams Nuclear Weapons Mechanical Specialist Relationship Specialty Start Date End Date Sherice John MD 73 [place] [address] PCP - General Internal Medicine 08/08/22 documented as of this encounter
--- OUTSIDE RECORDS SUMMARY | 2024-11-25 13:42 | XMS_ITS | Encounter Summary ---
Author Organization [facility] Address [address] [place] [address] Care Team Providers Care Equipment Operat0R Name Role Phone Sherice John MD Primary Care Provider Unavailab Mikal Rodriguez MD Unavailable Dante Ghotra NP Unavailable [phone] Marvin Pritchett MD Unavailable [phone] Shahnaz Sanchez PA-C Unavailable Reason for Visit * Reason Onset Date Comments refill request 02/10/2019 Encounter Details Date Type Department Care Team Description 02/10/2019 Refill Pulmonology - [place] 175 [facility] [address] [place] [address] Monae Reece MD 175 [place] [address] refill request Social History Tobacco Use Types Packs/Day Years Used Date Smoking Tobacco: Never Smokeless Tobacco: Never Sex Assigned at Date Recorded Not on file Job Start Date Occupation Industry Not on file Not on file Not on file documented as of this encounter Miscellaneous Notes * Telephone Encounter - Flor Pancho - 02/10/2019 11:39 AM EDT Patient would like script to be: E-PRESCRIBED/FAXED TO PHARMACY WHEN WAS THE PATIENT'S LAST APPOINTMENT WITH THE PRESCRIBING PROVIDER? 02/07/19 Does patient have an upcoming appointment? Yes 04/07/19 (THE MEDICATION REQUESTED IS ON THE MED LIST ABOVE) All of the medications requested were on the CURRENT MEDS list Did you check the Pharmacy information above?: YES Patient wants: 30 -day supply Is this a mail order prescription request ? NO Patients current [place] is: [place] / Product Type: [place] [id number] documented in this encounter Plan of Treatment Not on file documented as of this encounter Visit Diagnoses Not on filedocumented in this encounter Care Teams Equipment Operat0R Relationship Specialty Start Date End Date Sherice John MD PCP - General Internal Medicine 01/10/19 Mikal Jones MD [address] [address] Mobile Application Engineer Cardiology 08/06/20 Dante Ghotra NP [address] [address] Nurse Practitioner Cardiology 03/21/22 Marvin Pritchett MD [address] [address] Mobile Application Engineer Cardiology 04/21/22 Shahnaz Sanchez PA-C [address] [address] Mobile Application Engineer Cardiology 04/21/22 documented as of this encounter
--- OUTSIDE RECORDS SUMMARY | 2024-11-25 13:43 | XMS_ITS | Encounter Summary ---
Author Organization [employer] Address [address] [place] [address] 7t [place] [address] Care Team Providers Care Broadcast Program Director Name Role Phone Pauline John MD Primary Care Provider [phone] Reason for Visit * Reason Onset Date Comments Medication Problem 05/25/2023 Encounter Details Date Type Department Care Team (Late st Contact Info) Description 05/25/2023 Telephone [facility] MEDICAL [address] [place] [address] Pauline John MD 73 [place] [address] Medication Problem Social History Tobacco Use Types [...] the past 12 months, has t he [employer], gas, oil or water [employer] threatened to shut off services in your [...] 11:50 AM EDT [place] a apt with [place] on Sunday she was due to change medication she is taking not seeing any prescriptions in file. documented in this encounter Plan of Treatment Upcoming Encounters Date Type Department Care Team (Late st Contact Info) Description 01/29/2025 10:00 AM EDT Office Visit [facility] MEDICAL [address] [place] [address] Pauline John MD 73 [place] [address] documented as of this encounter Visit Diagnoses Not on filedocumented in this encounter Care Teams Broadcast Program Director Relationship Specialty Start Date End Date Pauline John MD 73 [place] [address] PCP - General Internal Medicine 08/08/22 documented as of this encounter
== END 2024-11-25 12:08 | disposition home or self-care (01) ==
PROVIDERS: PCP Internal Medicine; Visit Provider Hospitalist
DX: I27.20 Pulmonary hypertension, unspecified (principal); I50.32 Chronic diastolic (congestive) heart failure; I27.82 Chronic pulmonary embolism; J45.40 Moderate persistent asthma, uncomplicated; G47.33 Obstructive sleep apnea (adult) (pediatric); F51.01 Primary insomnia; M54.50 Low back pain, unspecified; R01.1 Cardiac murmur, unspecified
CPT/HCPCS: 99215; G2211

== ENCOUNTER → 2024-11-25 11:12 | Outpatient (BNVA) | payer MEDICARE, OTHER, SELFPAY | PROVIDERS: PCP Internal Medicine; Visit Provider Hospitalist | DX: J45.40 Moderate persistent asthma, uncomplicated (principal); R06.09 Other forms of dyspnea; G47.33 Obstructive sleep apnea (adult) (pediatric); I27.20 Pulmonary hypertension, unspecified; I50.32 Chronic diastolic (congestive) heart failure; I26.99 Other pulmonary embolism without acute cor pulmonale; F51.01 Primary insomnia; R01.1 Cardiac murmur, unspecified; M54.50 Low back pain, unspecified; S22.000A Wedge compression fracture of unspecified thoracic vertebra, initial encounter for closed fracture; X58.XXXA Exposure to other specified factors, initial encounter; Y93.9 Activity, unspecified; Y92.9 Unspecified place or not applicable; Y99.9 Unspecified external cause status; Z99.89 Dependence on other enabling machines and devices; Z99.81 Dependence on supplemental oxygen | CPT/HCPCS: 99212 ==

== ENCOUNTER 2024-12-15 11:28 | Outpatient (AMB) | payer MEDICARE, OTHER, SELFPAY ==
--- NOTE | 2024-12-15 11:50 | A.OFFVIS_ITS ---
Vital Signs 12/15/24 11:56 Height 5 ft 4 in Weight 177 lb BMI 30.4 BP 130/61 Blood Pressure Location Lt brachial Position Sitting Respiration 16 Pulse 103 H Pulse Source Pulse Oximeter Pulse Oximetry (%) 92 Oxygen Delivery Method Nasal Cannula Oxygen Flow Rate 2 Intake Visit Reasons: Dorsalgia, unspecified Production Planning Manager Required: No Allergies hydromorphone [From Dilaudid] Allergy (Severe, Verified 12/29/24 10:05) Confusion Sulfa Drugs Allergy (Severe, Uncoded 12/29/24 10:05) Rash Medication List - Last Reconciled 12/15/24 by Kallie Triana LPN acetaminophen ER (Tylenol Arthritis Pain) 650 mg PO Q12H PRN alprazolam 0.5 mg PO BID PRN apixaban (Eliquis) 5 mg PO BID azelaic acid 15% 1 appl topical BID benzonatate 200 mg PO BID PRN 30 days calcium citrate 250 mg PO DAILY cholecalciferol (vitamin D3) 25 mcg PO DAILY CPAP (CPAP Machine/Device) As directed cyclobenzaprine 10 mg PO TID cyclosporine 0.05% (Restasis) drps ophthalmic (eye) ONCE PRN diltiazem HCl CD mg PO ONCE empagliflozin (Jardiance) 10 mg PO DAILY fluticasone propionate 50 mcg/actuation 2 sprays intranasal DAILY 30 days furosemide (Lasix) 20 mg PO DAILY PRN 14 days gabapentin 400 mg PO TID lansoprazole 30 mg PO DAILY levalbuterol HCl mg inhalation levalbuterol tartrate 45 mcg/actuation 2 inhalations inhalation Q6H PRN 30 days lisinopril 20 mg PO BID magnesium citrate 300 mg PO DAILY mexiletine 300 mg PO Q8H multivitamin 1 tab PO DAILY nebulizers As directed Oxygen Home Use As directed rosuvastatin 20 mg PO DAILY sertraline 100 mg PO DAILY sertraline 50 mg PO DAILY tiotropium bromide 2.5 mcg/actuation (Spiriva Respimat) 2 puffs inhalation QAM tramadol 50 mg PO .4x daily trazodone 50 mg PO BEDTIME PRN 30 days HPI HPI Dorsalgia, unspecified: Details: History of Present Illness The patient is a 74-year-old female presenting with chronic low back pain that began approximately one month ago after an episode of coughing. She described the pain as a sudden lightning-like sensation extending to the base of the spine. Past medical history includes osteopenia with a previous DEXA scan T- score of -2.2, and a history of osteoporosis treated with Prolia. There has been a recent lapse in Prolia treatment, which she recognizes could have contributed to a decline in bone density. Pain Description - Onset: Approximately one month ago following a single cough. - Quality: Sudden lightning-like sensation. - Location: Lower back, extending to the base of the spine. - Radiation: Down the spinal column. - Exacerbating Factors: Bending, lifting, driving over bumps. - Impact on Activities: Significant impairment; unable to proceed with planned hip replacement. Physical Exam - Musculoskeletal- Tenderness to palpation over the lower lumbar spinous processes. Results - Imaging: X-rays taken at [facility] indicate a compression fracture, but the exact timing and stage of healing are unclear. Previous MRI done in 2019. Pain Management - Affect: Patient expresses frustration and significant impact on her daily life due to pain. - Analgesia: Currently prescribed Tramadol and a muscle relaxer; patient unsure of their efficacy. - Activities of Daily Living: Limitations in bending and lifting due to pain. - Aberrant Drug Related Behaviors: None reported. [facility] Medical History (Updated 12/29/24 @ 10:24 by Ciro Chan MD) Systolic murmur Insomnia CHF (congestive heart failure) JACKIE (obstructive sleep apnea) Asthma Pulmonary hypertension Pulmonary emboli Dyspnea Social History Patient Tobacco Use Status: Never used Tobacco Physical Exam Vital Signs: Last Vital Signs Pulse 103 H 12/15/24 11:56 Resp 16 12/15/24 11:56 BP 130/61 12/15/24 11:56 Pulse Ox 92 12/15/24 11:56 Oxygen Delivery Method Nasal Cannula 12/15/24 11:56 Oxygen Flow Rate 2 12/15/24 11:56 BMI result Body Mass Index 30.4 Assessment & Plan Assessment & Plan (1) Osteoporotic compression fracture of vertebra: Code(s): M80.88XA - Other osteoporosis with current pathological fracture, vertebra(e), initial encounter for fracture Category: Medical Plan Plan - Order an MRI of the lumbar spine to verify the extent and location of suspected fractures. - Coordinate with primary care to resume osteoporosis treatment to prevent further bone loss. - Arrange a follow-up after MRI completion to discuss kyphoplasty intervention. - Provide Tramadol and muscle relaxer for symptomatic management if beneficial. Patient was informed and verbally consented to the use of an ambient scribe for clinic note documentation during this visit. Discussion Notes During the consultation, I addressed the patient's concerns about chronic low back pain following a cough-related event. We discussed the possibility of a compression fracture and the importance of obtaining a current MRI to confirm findings for potential kyphoplasty intervention. The procedural details and risks related to kyphoplasty were thoroughly communicated, emphasizing the importance of resuming Prolia therapy to manage osteoporosis and prevent further fractures. The patient was informed to follow up urgently with her primary care physician to restart Prolia. A follow-up appointment will be scheduled shortly after the MRI to plan further interventions. The patient was advised on the limited role of current analgesics and that they should be used only if symptomatic relief is attained. Patient Instructions - Schedule an MRI of the lumbar spine as soon as possible. - Resume Prolia treatment by consulting with your primary care provider. - Follow up with me after your MRI to discuss the results and next steps. - Use Tramadol and the muscle relaxer only if they provide relief. - Be cautious with movements such as bending and lifting to avoid exacerbating the pain. Orders: Orders MR lumbar spine wo con 12/20/24 M80.88XA - Other osteoporosis with current pathological fracture, vertebra(e), initial encounter for fracture Coding Level of Care Code New Pt Level 4 (52784) Diagnoses Osteoporotic compression fracture of vertebra M80.88XA
[2024-12-15 11:56] VITALS: BP 130/61; PULSE 103; RESP 16; O2SAT 92; BMI 30.4
--- OUTSIDE RECORDS SUMMARY | 2024-12-15 13:53 | XMS_ITS | Encounter Summary ---
Author Organization [employer] Address [address] [facility] [address] [place] [address] Care Team Providers Care Latcher Name Role Phone Sherice John MD Primary Care Provider [phone] Encounter Details Date Type Department Care Team (Latest Contact Info) Description 12/12/2024 Travel Social History Tobacco Use Types Packs/Day [...] Care Team (Late st Contact Info) Description 12/15/2024 3:40 PM EDT Telemedicine [address] [address] Sherice John MD [address] [place] [address] 01/29/2025 10:00 AM EDT Office Visit [address] [address] Sherice John MD [address] [place] [address] documented as of this encounter Visit Diagnoses Not on filedocumented in this encounter Care Teams Latcher Relationship Specialty Start Date End Date Sherice John MD [address] [place] [address] PCP - General Internal Medicine 08/08/22 documented as of this encounter
--- OUTSIDE RECORDS SUMMARY | 2024-12-15 13:53 | XMS_ITS | Encounter Summary ---
Author Organization [employer] Address [address] [facility] 7t [place] [address] Care Team Providers Care Review Trainer Name Role Phone Sherice John MD Primary Care Provider [phone] Reason for Visit * Reason Onset Date Comments Medication Question 12/13/2024 Encounter Details Date Type Department Care Team (Late st Contact Info) Description 12/13/2024 Telephone [place] [facility] [address] [place] [address] Sherice John MD [address] [place] [address] Medication Question Social History Tobacco Use Types Packs/Day Years [...] encounter Miscellaneous Notes * Telephone Encounter - Nancy Murphy RN - 12/13/2024 12:04 PM EDT Consulted with [facility] and reviewed patient's medications. Acetaminophen safe to take PRN. Tramadol and cyclobenzaprine should be by a few hours due to sedating effect of both medications. Patient indicates understanding. * Telephone Encounter - Fátima Germain - 12/13/2024 11:11 AM EDT Patient left asking about the Tramadol that she was prescribed. Patient wants to know if it is safe to take Tylenol at the same time, and she also has a muscle relaxer. Patient did not name the muscle relaxer in . Patient is unsure what to do other than taking the tramadol and would like a call back at [phone]. traMADol (Ultram) 50 MG tablet [[id number]] documented in this encounter Plan of Treatment Upcoming Encounters Date Type Department Care Team (Late st Contact Info) Description 12/15/2024 3:40 PM EDT Telemedicine [address] [address] Sherice John MD [address] [place] [address] 01/29/2025 10:00 AM EDT Office Visit [address] [address] Sherice John MD [address] [place] [address] documented as of this encounter Visit Diagnoses Not on filedocumented in this encounter Care Teams Review Trainer Relationship Specialty Start Date End Date Sherice John MD [address] [place] [address] PCP - General Internal Medicine 08/08/22 documented as of this encounter
--- OUTSIDE RECORDS SUMMARY | 2024-12-15 13:54 | XMS_ITS | Clinical Summary ---
Author Organization [facility] Address [address] [place] [address] Care Team Providers Care Straightedge Man Name Role Phone Sherice John MD Primary Care Provider [phone] Allergies Active Allergy Reactions Criticality Noted Date Comments Sulfa Antibiotics Rash/Dermatitis,Myal benjy/Myositis/Ar thralgia/Arthritis Low 12/19/2018 Social History Tobacco Use Types Packs/Day Years Used Date Smoking Tobacco: Never Assessed Comments Unknown Sex and Gender Information Value Date Recorded Sex Assigned at Not on file Legal Sex Female 6:39 PM EST Gender Identity Not on file [...] older) 2017 Influenza Vaccine 03/20/2024 COVID-19 Vaccine (2023-2 5 season) 2024 RSV Vaccine 60 years and old er and Patients (1 - 1-dose 75+ series) 2027 Hepatitis B Vaccines Aged Out No long er eligible based on patient's age to complete this topic Insurance MEDICARE PART A & B [facility] Care Teams Straightedge Man Relationship Specialty Start Date End Date Sherice John MD [address] [place] [address] PCP - General 12/12/18
--- OUTSIDE RECORDS SUMMARY | 2024-12-15 13:54 | XMS_ITS | Encounter Summary ---
Author Organization [employer] Address [address] [facility] 7t [place] [address] Care Team Providers Care Consumer Educator Name Role Phone Sherice John MD Primary Care Provider [phone] Encounter Details Date Type Department Care Team (Late st Contact Info) Description 10/01/2023 Orders Only [facility] [address] [place] [address] Sherice John MD [address] [place] [address] Social History Tobacco Use Types Packs/Day Years [...] Info) Description 12/15/2024 3:40 PM EDT Telemedicine [address] [address] Sherice John MD [address] [place] [address] 01/29/2025 10:00 AM EDT Office Visit [address] [address] Sherice John MD [address] [place] [address] documented as of this encounter Procedures Procedure Name Priority Date/Time Associated Diagnosis Comments CBC WITH AUTO DIFFERENTIAL Routine 10/01/2023 documented in this encounter Results * CBC auto differential (10/01/2023) Blood Venous blood specimen / Unknown Sherice John MD LAB BLOOD ORDERABLES Edited Resu lt - Final documented in this encounter Visit Diagnoses Not on filedocumented in this encounter Care Teams Consumer Educator Relationship Specialty Start Date End Date Sherice John MD [address] [place] [address] PCP - General Internal Medicine 08/08/22 documented as of this encounter
--- OUTSIDE RECORDS SUMMARY | 2024-12-15 13:54 | XMS_ITS | Encounter Summary ---
Author Organization [employer] Address [address] [facility] 7t [place] [address] Care Team Providers Care Auxiliary Equipment Tender Name Role Phone Sherice John MD Primary Care Provider [phone] Encounter Details Date Type Department Care Team (Late st Contact Info) Description 12/19/2023 Orders Only [facility] [address] [place] [address] Sherice John MD [address] [place] [address] Social History Tobacco Use Types Packs/Day Years [...] Info) Description 12/15/2024 3:40 PM EDT Telemedicine [address] [address] Sherice John MD [address] [place] [address] 01/29/2025 10:00 AM EDT Office Visit [address] [address] Sherice John MD [address] [place] [address] documented as of this encounter Procedures Procedure [...] on filedocumented in this encounter Care Teams Auxiliary Equipment Tender Relationship Specialty Start Date End Date Sherice John MD [address] [place] [address] PCP - General Internal Medicine 08/08/22 documented as of this encounter
--- OUTSIDE RECORDS SUMMARY | 2024-12-15 13:54 | XMS_ITS | Data Portability ---
Author Organization [place] [facility] Address [address] [address] Care Team Providers Care Executive Administrative Asst Name Role Phone CARLOS CHILDERS Primary Care Provider [phone] Assessment Encounter Date Assessment Date Assessment LastModified [...] eural hearing loss of bilatera l ears 407119355 Active 2019 Sensorin eural hearing loss, bilatera l; Note: Date Diagnose d: 0 2:40 PM (H90.3) Not Available [employer] 4 02:45:12 Disorder of right Eustachi an tube 32614720481 84599 Active 2019 Other specifie d disorder s of Eustachi an tube, right ear; Note: Date Diagnose d: 04/20/2020 4:01 PM (H69.81) Not Available [facility] 4 02:45:15 Impacted cerumen in right ear 59763110323 69278 Active 2022 Impacted cerumen, right ear; Note: Date Diagnose d: 3 11:11 AM (H61.21) Not Available [facility] 4 02:45:12 Acute serous otitis media of right ear 41132686142 83224 Completed 201903/21/2024 Acute serous otitis media, right ear; Note: Date Diagnose d: 0 2:34 PM (H65.01) Not Available [facility] 4 02:45:08 Posterio r rhinorrh ea 88846026 Active 2017 Postnasa l drip; Note: Date Diagnose d: 12/25/2017 2:12 PM (R09.82) Not Available [facility] 4 02:45:11 Allergic rhinitis 44879995 Active 2017 Allergic rhinitis , unspecif ied; Note: Date Diagnose d: 12/25/2017 2:12 PM (J30.9) Not Available [facility] 4 02:45:10 Cough 18818724 Active 2018 Cough; Note: Date Diagnose d: 09/24/2018 11:18 AM (R05) Not Available [facility] 4 02:45:09 Cough variant asthma 802234223 Active 2018 Cough variant asthma; Note: Date Diagnose d: 11/19/2018 11:34 AM (J45.991 ) Not Available [facility] 4 02:45:09 Impacted cerumen of bilatera l ears 32085408187 38907 Active 2018 Impacted cerumen, bilatera l; Note: Date Diagnose d: 09/24/2018 11:18 AM (H61.23) Not Available [facility] 4 02:45:10 Headache 51085592 Active 2017 Headache ; Note: Date Diagnose d: 12/25/2017 2:12 PM (R51) Not Available [facility] 4 02:45:09 Otalgia of right ear 6619993473 Active 2018 Otalgia, right ear; Note: Date Diagnose d: 09/24/2018 12:52 PM (H92.01) Not Available [facility] 4 02:45:14 Obstruct demarco sleep apnea syndrome 48284809 Active 2018 Obstruct demarco sleep apnea (adult) (pediatr ic); Note: Date Diagnose d: 9 11:20 AM (G47.33) Not Available [facility] 4 02:45:14 Itching of skin 651475221 Active 2023 Nata garcia [place] - [facility] 4 09:46:48 Problem Notes None recorded. Medical Equipment None Reported. Allergies Allergen ID Allergen Name Allergen Category Reaction Reaction Severity Criticality Documentation Date Start Date Code Code System Note Provider Name and Address Organization Details Recorded Time 55081 Substance with sulfonami de structure and antibacte rial mechanism of action (substanc e) medicatio n other Not available Not available 01/01/2024 33496 8003 SNOMED React ion: unkno wn, unspe cifie d;; Not Available [facility] 4 00:49:45 Medications Name Sig Start Date [...] mg tablet 02/02 completed Medicati on ID: [id number] D uration Value: 30 Brand Name: amlodipi [...] 5 mg tablet active Medicati on ID: [id number] B rand Name: bisoprol ol fumarate Send Method: E-Prescr ibed Sub s Allowed: subs OK Medic ationGen ericName : bisoprol ol fumarate Not Available Not Available Not Available alprazola m 0.5 mg tablet TAKE 1/2 TO 1 TABLET DAILY NEEDED FOR ANXIETY active Not Available Not Available No t Available gabapenti n 800 mg tablet 02/02 completed Medicati on ID: [id number] D uration Value: 30 Brand Name: gabapent in Send Method: E-Prescr ibed Sub s Allowed: subs OK Speci al Instruct ion: take 1 tablet by mouth at bedtime Medicati onGeneri cName: gabapent in Not Available Not Available Not Available meclizine 25 mg tablet 11/13 completed Medicati on ID: [id number] B rand Name: meclizin e Send Method: E-Prescr ibed Sub s Allowed: subs OK [facility] meclizin e Not Available Not [...] mg tablet 02/02 completed Medicati on ID: [id number] D uration Value: 30 Brand Name: zolpidem [...] 24 hr 2020 active Medicati on ID: [id number] B rand Name: metoprol ol succinat e Send Method: E-Prescr ibed Sub s Allowed: subs OK Medic ationGen ericName : metoprol ol succinat e Not Available Not Available Not Available lotepredn ol etabonate 0.5 % eye drops,[facility] ADMINIST ER 1 DROP INTO BOTH EYES 4 TIMES DAILY FOR 14 DAYS. active Not Available Not Available No t Available zolpidem 10 mg tablet 2020 active Medicati on ID: [id number] B rand Name: zolpidem Send Method: E-Prescr ibed Sub s Allowed: subs OK Medic ationGen ericName : zolpidem Not Available Not Available Not Available fluticaso ne propionat e 50 mcg/actua tion nasal spray,[facility] pension 2020 active Medicati on ID: [id number] B rand Name: fluticas one propiona te [...] sustained -release 11/13 completed Medicati on ID: [id number] B rand Name: bupropio n HCl Send [...] aerosol inhaler 2020 active Medicati on ID: [id number] B rand Name: Flovent HFA Send Method: E-Prescr ibed Sub s Allowed: subs OK Medic ationGen ericName : Flovent HFA Not Available Not Available Not Available Flovent HFA 220 mcg/actua tion aerosol inhaler 11/13 completed Medicati on ID: [id number] B rand Name: Flovent HFA Send Method: [...] in dose pack active Medicati on ID: [id number] B rand Name: Eliquis DVT-PE Treat 30D [...] Updated DateTime 05/20/2024 162.56 cm 30 kg/m2 58256.66 g Ruperto Hull [place] - [facility] 05/20/2024 09:37:03 Social History None recorded. Functional Status None recorded. Mental Status None recorded. Family History Nothing Reported. Medical History No medical history recorded. Gynecological HistoryNo gynecological history recorded. Obstetrics History GPAL:G 0 P 0 0 0 0 Past Encounters Encounter ID Performer Location Encounter Start Date Encounter Closed Date Diagnosis/Indication Diagnosis SNOMED-CT Code Diagnosis ICD10 Code Diagnosis Note [id number] HAYDEN IRBY MD [facility] [place] [place] [address] 05/20/2024 09:25:09 05/20/2024 09:48:11 Itching of skin 157526097 L29.9 Health Concerns Section Related Observation LastModified by Organization Detai ls LastModified Time None Recorded Concern Status LastModified by Organization Details LastModified Time None Recorded Advance Directives Directive None Recorded Payers Encounter Date Sequence Insurance Name Policy Number Policy Adan Covered Member ID Adan Member ID Guarantor Name 05/20/2024 1 MEDICARE B-HI: [facility] Mary Delgado [id number] Mary Delgado 05/20/2024 2 [facility] INDEMNITY PLAN - UNICARE [id number] Mary Delgado [id number] Mary Delgado Notes Date Note Type Note Provider Name and Address Organization Details Recorded Time 05/20/2024 text/html 74 year old female presents today for an ear cleaning.No specific concerns today. She does have some itching at the ear canal opening. No drainage or pain. HAYDEN BEARDEN MD [address] [place] [address], [place], [address], [place] - [facility] 05/20/2024 10:12:08 OBGyn Episode No OBEpisode recorded.
--- OUTSIDE RECORDS SUMMARY | 2024-12-15 13:54 | XMS_ITS | Encounter Summary ---
Author Organization [employer] Address [address] [facility] 7t [place] [address] Care Team Providers Care Dental Front Office Assistant Name Role Phone Sherice John MD Primary Care Provider Encounter Details Date Type Department Care Team (Late st Contact Info) Description 05/14/2024 Orders Only [facility] [address] [place] [address] Sherice John MD [address] [place] [address] Social History Tobacco Use Types Packs/Day Years [...] Info) Description 12/15/2024 3:40 PM EDT Telemedicine [address] [address] Sherice John MD [address] [place] [address] 01/29/2025 10:00 AM EDT Office Visit [address] [address] Sherice John MD [address] [place] [address] documented as of this encounter Procedures Procedure [...] on filedocumented in this encounter Care Teams Dental Front Office Assistant Relationship Specialty Start Date End Date Sherice John MD [address] [place] [address] PCP - General Internal Medicine 08/08/22 documented as of this encounter
--- OUTSIDE RECORDS SUMMARY | 2024-12-15 13:54 | XMS_ITS | Encounter Summary ---
Author Organization [employer] Address [address] [facility] 7t [place] [address] Care Team Providers Care Loss Prevention/Safety District Manager Name Role Phone Sherice John MD Primary Care Provider [phone] Encounter Details Date Type Department Care Team (Late st Contact Info) Description 01/07/2024 Orders Only [facility] [address] [place] [address] Sherice John MD [address] [place] [address] Social History Tobacco Use Types Packs/Day Years [...] Info) Description 12/15/2024 3:40 PM EDT Telemedicine [address] [address] Sherice John MD [address] [place] [address] 01/29/2025 10:00 AM EDT Office Visit [address] [address] Sherice John MD [address] [place] [address] documented as of this encounter Procedures Procedure [...] on filedocumented in this encounter Care Teams Loss Prevention/Safety District Manager Relationship Specialty Start Date End Date Sherice John MD [address] [place] [phone] PCP - General Internal Medicine 08/08/22 documented as of this encounter
--- OUTSIDE RECORDS SUMMARY | 2024-12-15 13:54 | XMS_ITS | Encounter Summary ---
Author Organization [employer] Address 75 [facility] 7t [place] [address] Care Team Providers Care An/Sqq 89(V)15 Sonar System Journeyman Name Role Phone Sherice John MD Primary Care Provider [phone] Encounter Details Date Type Department Care Team (Late st Contact Info) Description 08/25/2023 Orders Only [place] [facility] [address] [place] [address] Sherice John MD [address] [place] [address] Social History Tobacco Use Types Packs/Day Years [...] Info) Description 12/15/2024 3:40 PM EDT Telemedicine [address] [address] Sherice John MD [address] [place] [address] 01/29/2025 10:00 AM EDT Office Visit [address] [address] Sherice John MD [address] [place] [address] documented as of this encounter Procedures Procedure Name Priority Date/Time Associated Diagnosis Comments XR CHEST 2 VIEWS Routine 08/17/2023 documented in this encounter Results * XR Chest 2 Views (08/17/2023) Anatomical Region Laterality Modality Chest Radiographic Tami ging Sherice John MD IMG XR PROCEDURES Edited Result - Final documented in this encounter Visit Diagnoses Not on filedocumented in this encounter Care Teams An/Sqq 89(V)15 Sonar System Journeyman Relationship Specialty Start Date End Date Sherice John MD [address] [place] [address] PCP - General Internal Medicine 08/08/22 documented as of this encounter
--- OUTSIDE RECORDS SUMMARY | 2024-12-15 13:54 | XMS_ITS | Encounter Summary ---
Author Organization [employer] Address 75 [facility] 7t [place] [address] Care Team Providers Care Subway Repair Supervisor Name Role Phone Sherice John MD Primary Care Provider [phone] Encounter Details Date Type Department Care Team (Late st Contact Info) Description 09/23/2024 Orders Only [place] [facility] [address] [place] [address] Sherice John MD [address] [place] [address] Social History Tobacco Use Types Packs/Day Years [...] Info) Description 12/15/2024 3:40 PM EDT Telemedicine [address] [address] Sherice John MD [address] [place] [address] 01/29/2025 10:00 AM EDT Office Visit [address] [address] Sherice John MD [address] [place] [address] documented as of this encounter Procedures Procedure Name Priority Date/Time Associated Diagnosis Comments HM COLONOSCOPY Routine 05/06/2024 1:27 PM EDT documented in this encounter Results * Hm Colonoscopy (05/06/2024 1:27 PM EDT) Sherice John MD HEALTH MAINTENANCE Final Result documented in this encounter Visit Diagnoses Not on filedocumented in this encounter Care Teams Subway Repair Supervisor Relationship Specialty Start Date End Date Sherice John MD [address] [place] [address] PCP - General Internal Medicine 08/08/22 documented as of this encounter
--- OUTSIDE RECORDS SUMMARY | 2024-12-15 13:54 | XMS_ITS | Clinical Summary ---
Author Organization [employer] Address 75 [facility] 7t [place] [address] Care Team Providers Care Personal Support Worker Name Role Phone Sherice John MD Primary Care Provider [phone] Allergies Active Allergy Reactions Criticality Noted Date [...] (VITAMIN D3 PO) Take by mouth. Active azelaic acid (Finacea) 15 % gel [...] spasms. 30 tablet 11/25/19 25 2024 Active Eliquis 5 MG tablet TAKE 1 TABLET BY MOUTH TWICE A DAY 180 tablet 3 12/03/19 25 Active traMADol (Ultram) 50 MG tabletIndicatio ns:Acute midline low back pain without sciatica Take 1 tablet (50 mg) by mouth every 6 (six) hours if needed for moderate pain for up to 5 days. 20 tablet 12/13/19 25 2024 Active Eliquis 5 MG tablet TAKE 1 TABLET BY MOUTH TWICE A DAY 180 tablet 3 12/03/19 24 2024 Discontinued Active Problems Problem Noted Date [...] will f/up with both her pulm and microfiche duplicator , continue daily weights and report if greater than 2 lb wt gain day to day or 5 lbs in one week. Self monitor closely for any new open wounds or bleeding as she is taking Eliquis 5 mg PO BID d/t hx PE and pulm HTN, ?cardiomyopathy, ? CHF. Recommended schedule her pulm and microfiche duplicator followup visits soon and agrees to do [...] EDT): Encouraged to keep current with her four h club agent and microfiche duplicator given her multple complex pulm and cardio health diagnoses and history. Savannah's bp somewhat elevated and will self monitor bp/pulse and 02 sat daily and make/keep PCP, pulm and microfiche duplicator followup visits and agrees to consult with reg tower director for dietary advice to help with her [...] on the results of her echocardiogram from [facility] and discussed with her if there are actionable findings. I did encourage her to follow-up with her new four h club agent to determine if there are further investigations or treatment warranted for pulmonary hypertension. 11/22/18 CAIT: Mild Assessment & Plan (06/25/2024 8:30 PM EST): Followed by cardiology and also pulm HTN specialist in [place] Dr. Tangela Deleon. See HPI, encouraged to f/up both with her microfiche duplicator who is prescribing her torsemide and with [...] Encounters Date Type Department Care Team Description 12/13/[address] [address] hSerice John MD Medication Question 12/12/2024 Travel 12/02/[address] [address] Sherice John MD 11/24/2024 2:20 PM EDT Telemedicine [address] [address] Sherice John MD Acute bilateral low back pain without sciatica (Primary Dx) 11/24/2024 Travel 11/17/[address] [address] Sherice John MD Back Pain 11/03/2024 10:00 AM EDT Telemedicine [address] [address] Sherice John MD Syncope, unspecified syncope type (Primary Dx) 11/02/2024 Travel 09/23/2024 12:00 PM EST Office Visit [facility] [address] [place] [address] Sherice John MD Syncope, unspecified syncope type (Primary Dx); Pulmonary hypertension (CMS/HCC); Essential hypertension; Multiple subsegmental pulmonary emboli without acute cor pulmonale (CMS/HCC); Generalized anxiety disorder 09/23/2024 Orders Only [place] [facility] [address] [place] [address] Sherice John MD 09/23/2024 Telephone [facility] [address] [place] [address] Sherice John MD Medical Records request from Last 3 Months Immunizations Name Administration [...] Info) Description 12/15/2024 3:40 PM EDT Telemedicine [facility] [address] [place] [address] Sherice John MD [address] [place] [address] 01/29/2025 10:00 AM EDT Office Visit [facility] [address] [place] [address] Sherice John MD [address] [place] [address] Health Maintenance Due Date Last Done Comments [...] Date/Time Associated Diagnosis Comments AMB REFERRAL TO CARDIOLOGY Routine 12/01/2024 Pulmonary hypertension (CMS/HCC) BONE DENSITY/DEXA (HIPS, PELVIS OR SPINE) Routine 11/24/2024 Osteoporosis with current pathological fracture, unspecified osteoporosis type, sequela XR LUMBAR SPINE 2-3 VIEWS Routine 11/22/2024 Acute midline low back pain without sciatica VASC US CAROTID ARTERY DUPLEX BILATERAL Urgent [...] to Health Maintenance Results * Referral to Cardiology (12/01/2024) us Sherice John MD OUTPATIENT REFERRAL ORDERABLES F inal Result * BONE DENSITY/DEXA (HIPS, PELVIS OR SPINE) (11/24/2024) Anatomical Region Laterality Modality L-spine N/A Radiographic Tami ging us Sherice John MD IMG DXA PROCEDURES Final Result * XR Lumbar Spine 2-3 Views (11/22/2024) Anatomical Region Laterality Modality Spine, L-spine Radiographic Tami ging Result Candace John MD IMG XR PROCEDURES Final Result * Vascular US carotid artery duplex bilateral (11/05/2024) Result Candace John MD CV VASCULAR PROCEDURES Final Res ult * MR Brain w/o Contrast (10/22/2024) Anatomical Region Laterality Modality Brain Magnetic Resonan ce Result Candace John MD IMG MRI PROCEDURES Final Result * Hm Colonoscopy (05/06/2024 1:27 PM EDT) Result Candace John MD HEALTH MAINTENANCE Final Result * BI Mammogram Screening Tomosynthesis Bilateral (01/01/2024 2:48 PM EDT) Anatomical Region Laterality Modality Breast Bilateral Mammography Result Candace John MD IMG BI PROCEDURES Final Result * Lipid panel (09/07/2022 12:08 PM EST) Cholesterol, Total 164 (<200) MG/DL [facility] Triglyceride (mg/dL) in Serum/Plasma 83 (<150) MG/DL [facility] HDL Cholesterol 75 (>39) MG/DL [facility] LDL Cholesterol, Calculated 72 (0-130) MG/DL [facility] Non HDL Chol. (LDL+VLDL) 89 (<160) MG/DL [facility] Comment: Testing performed or reported by [facility], a Service of [facility], [address] [place] [address] Lulu Masters MD, Balance Sheet Analyst [facility]# [id number] Blood Venous blood specimen / Unknown 09/07/2022 12:08 PM EST 09/07/2022 12:10 PM EST Result Candace John MD LAB BLOOD ORDERABLES Final Resul t [facility] [address] [place] [address] * Pap Smear (02/01/2016 12:00 AM EDT) Swab Historical Provider LAB CYTOLOGY ORDERABLES F inal Result * Hepatitis C Antibody (08/20/2011 3:22 PM EST) Hepatitis C Antibody Nonreactive Blood 08/20/2011 3:22 PM EST Historical Provider POINT OF CARE TEST ENTER/ EDIT ORDERABLES Final Result from Last 3 Months or Most Recently Relevant to Health Maintenance Insurance [facility] MEDIC[facility] Care Teams Personal Support Worker Relationship Specialty Start Date End Date Sherice John MD [address] [place] [address] PCP - General Internal Medicine 08/08/22
--- OUTSIDE RECORDS SUMMARY | 2024-12-15 13:54 | XMS_ITS | Encounter Summary ---
Author Organization [employer] Address 75 [facility] 7t [place] [address] Care Team Providers Care Montessori Paraprofessional Name Role Phone Sherice John MD Primary Care Provider [phone] Encounter Details Date Type Department Care Team (Late st Contact Info) Description 07/31/2023 Orders Only [place] [facility] [address] [place] [address] Sherice John MD [address] [place] [address] Social History Tobacco Use Types Packs/Day Years [...] Info) Description 12/15/2024 3:40 PM EDT Telemedicine [address] [address] Sherice John MD [address] [place] [address] 01/29/2025 10:00 AM EDT Office Visit [address] [address] Sherice John MD [address] [place] [address] documented as of this encounter Procedures Procedure Name Priority Date/Time Associated Diagnosis Comments TSH Routine 07/30/2023 documented in this encounter Results * TSH (07/30/2023) Blood Venous blood specimen / Unknown Sherice John MD LAB BLOOD ORDERABLES Edited Resu lt - Final documented in this encounter Visit Diagnoses Not on filedocumented in this encounter Care Teams Montessori Paraprofessional Relationship Specialty Start Date End Date Sherice John MD [address] [place] [address] PCP - General Internal Medicine 08/08/22 documented as of this encounter
--- OUTSIDE RECORDS SUMMARY | 2024-12-15 13:54 | XMS_ITS | Encounter Summary ---
Author Organization [employer] Address 75 [facility] 7t [place] [address] Care Team Providers Care Core Manager Name Role Phone Sherice John MD Primary Care Provider [phone] Encounter Details Date Type Department Care Team (Late st Contact Info) Description 12/07/2023 Orders Only [place] [facility] [address] [place] [address] Sherice John MD [address] [place] [address] Social History Tobacco Use Types Packs/Day Years [...] Info) Description 12/15/2024 3:40 PM EDT Telemedicine [address] [address] Sherice John MD [address] [place] [address] 01/29/2025 10:00 AM EDT Office Visit [address] [address] Sherice John MD [address] [place] [address] documented as of this encounter Procedures Procedure Name Priority Date/Time Associated Diagnosis Comments CBC WITH AUTO DIFFERENTIAL Routine 12/06/2023 9:50 AM EDT documented in this encounter Results * CBC auto differential (12/06/2023 9:50 AM EDT) Blood Venous blood specimen / Unknown Sherice John MD LAB BLOOD ORDERABLES Final Resul t documented in this encounter Visit Diagnoses Not on filedocumented in this encounter Care Teams Core Manager Relationship Specialty Start Date End Date Sherice John MD [address] [place] [address] PCP - General Internal Medicine 08/08/22 documented as of this encounter
--- OUTSIDE RECORDS SUMMARY | 2024-12-15 13:54 | XMS_ITS | Encounter Summary ---
Author Organization [employer] Address [address] [place] [address] [address] [place] [address] Care Team Providers Care Pocket Grinder Operator Name Role Phone Pauline Paulino MD Primary Care Provider [phone] Reason for Referral * Imaging (Routine) - Pending Review Specialty Diagnoses / Procedures Referred By Tyler yeung Referred To Contact Radiology Diagnoses Acute midline low back pain without sciatica Procedures XR Lumbar Spine 2-3 Views Pauline Paulino MD [address] [place] [address] Phone: tel: fax: [facility] [place] [address] [place], [place] Phone: tel: fax: Referral ID Status Reason Start Date Expiration Date V isits Requested Visits Authorized [id number] Pending Review 11/21/2024 11/21/2025 1 1 Reason for Visit * Reason Onset Date Comments Back Pain 11/17/2024 Encounter Details Date Type Department Care Team (Late st Contact Info) Description 11/17/2024 Telephone [facility] [address] [place] [address] Pauline Paulino MD [address] [place] [address] Back Pain Social History Tobacco Use Types [...] as of this encounter Miscellaneous Notes * Addendum Note - Pauline Paulino MD - 12/12/2024 4:52 PM EDTAddended by: PAULINE PAULINO on: 12/12/2024 04:52 PM Modules accepted: Orders * Telephone Encounter - Heather Kwno LPN - 12/12/2024 9:[address] Paulino- would like to try the Tramadol-she is really having a hard time getting comfortable. TY! * Telephone Encounter - Pauline Paulino MD - 12/11/2024 5:42 PM EDT She can't be on an nsaid due to her eliquis so really the only other optoin would be narcotic. We could give her tramadol which isn't too strong if she is willing to be on a narcotic short-term. * Telephone Encounter - Heahter Kwon LPN - 12/11/2024 11:18 AM EDT Just spoke with . Reviewed some things that could help alleviate some of her pain. Heat/Cold. Gentle stretching. She has been taking acetaminophen for pain. (Max dose explained to pt.) She is really uncomfortable and is asking if you'd prescribe her something for the pain [facility] with you on Sunday. She just started taking the muscle relaxer because she was so uncomfortable but she doesn't really feel a big difference. Please advise. TY! * Telephone Encounter - Migdalia Jones - 12/11/2024 10:40 AM EDT Patient called stating I can't seem to get rid of the pain, I don't want narcotics but I just wanted to check in to see what might be going on, when I move a certain way it's a really bad pain, I'd be open to trying medication for it. Patient scheduled telehealth appointment with [facility] on 12/15/24 to discuss the possibility of medication for back pain. Patient states she would like a call back with advice from nursing prior to appointment, thank you! * Telephone Encounter - Tegan Hope LPN - 11/24/2024 10:14 AM EDT Call to patient to discuss recent urgent care visit and offer office visit. Date of urgent care visit: 11/22/24 Discharge date: 11/22/24 Hospital: [facility] Urgent Care Records on file: yes Discharge diagnosis: L4 compression fracture of undetermined age Patient described events as: lower back pain, heard a crack in lumbar region 6 days ago Lingering concerns/symptoms for provider: back pain persists Follow-up scheduled: telehealth 11/24/24 * Telephone Encounter - Tegan Hope LPN - 11/24/2024 9:50 AM EDT November 24, 2024 Tegan Kemp to [facility] 11/24/24 8:48 AM Note scanned. * Telephone Encounter - Tegan Hope LPN - 11/22/2024 8:05 AM EDT Spoke with pt. She has an appointment this morning at [facility] Urgent Care. X-ray order faxed to [facility] per pt's request. Please monitor for urgent care note. Thank you * Addendum Note - Pauline Paulino MD - 11/21/2024 5:14 PM EDTAddended by: PAULINE PAULINO on: 11/21/2024 05:14 PM Modules accepted: Orders * Telephone Encounter - Pauline Paulino MD - 11/21/2024 5:13 PM EDT I put an order in for an xray, can fax to [facility] or mail to pt. * Telephone [...] x-ray for her to get done at [facility]. No numbness or tingling in lower [...] trouble getting out of bed and can't molded goods spot picker things off the floor, I wanted to see ifthere was something they might want me to do like an x-ray or something, I did have an MRI on my back a number of years ago (2017 or so from [facility]) that [facility] ordered, I can't find [...] Info) Description 12/15/2024 3:40 PM EDT Telemedicine [address] [address] Pauline Paulino MD [address] [place] [address] 01/29/2025 10:00 AM EDT Office Visit [address] [address] Pauline Paulino MD [address] [place] [address] documented as of this encounter Procedures Procedure Name Priority Date/Time Associated Diagnosis Comments XR LUMBAR SPINE 2-3 VIEWS Routine 11/22/2024 Acute midline low back pain without sciatica documented in this encounter Results * XR Lumbar Spine 2-3 Views (11/22/2024) Anatomical Region Laterality Modality Spine, L-spine Radiographic Tami ging Pauline Paulino MD IMG XR PROCEDURES Final Result documented in this encounter Visit Diagnoses Diagnosis Acute midline low back pain without sciatica- Primary documented in this encounter Care Teams Pocket Grinder Operator Relationship Specialty Start Date End Date Pauline Paulino MD [address] [place] [address] PCP - General Internal Medicine 08/08/22 documented as of this encounter
--- OUTSIDE RECORDS SUMMARY | 2024-12-15 13:54 | XMS_ITS | Encounter Summary ---
Author Organization [employer] Address [address] [facility] [address] 7t [place] [address] Care Team Providers Care News Gathering Technician Name Role Phone Sherice John MD Primary Care Provider [phone] Encounter Details Date Type Department Care Team (Late st Contact Info) Description 01/16/2024 Orders Only [facility] MEDICAL [address] [place] [address] Provider, MD Kiersten Social History Tobacco Use [...] Info) Description 12/15/2024 3:40 PM EDT Telemedicine [address] [address] Sherice John MD [address] [place] [address] 01/29/2025 10:00 AM EDT Office Visit [address] [address] Sherice John MD [address] [place] [address] documented as of this encounter Procedures Procedure Name Priority Date/Time Associated Diagnosis Comments TRANSTHORACIC ECHO (TTE) COMPLETE Routine 01/03/2024 4:27 AM EDT documented in this encounter Results * Transthoracic echo (TTE) complete (01/03/2024 4:27 AM EDT) us Historical Provider CV ECHO PROCEDURES Final Result documented in this encounter Visit Diagnoses Not on filedocumented in this encounter Care Teams News Gathering Technician Relationship Specialty Start Date End Date Sherice John MD [address] [place] [address] PCP - General Internal Medicine 08/08/22 documented as of this encounter
--- OUTSIDE RECORDS SUMMARY | 2024-12-15 13:54 | XMS_ITS | Encounter Summary ---
Author Organization [employer] Address [address] [place] [address] 7t [place] [address] Care Team Providers Care Jewelry Facer Name Role Phone Sherice John MD Primary Care Provider [phone] Reason for Visit * Reason Onset Date Comments Rx needs clairification 04/22/2024 Gabapent in Rx needs clarification Encounter Details Date Type Department Care Team (Late st Contact Info) Description 04/22/2024 Refill [facility] [address] [place] [address] Sherice John MD [address] [place] [address] Primary insomnia Social History Tobacco Use Types [...] the past 12 months, has t he [employer], oil or water [employer] threatened to shut off services in your [...] Info) Description 12/15/2024 3:40 PM EDT Telemedicine [facility] [address] [place] [address] Sherice John MD [address] [place] [address] 01/29/2025 10:00 AM EDT Office Visit [address] [address] Sherice John MD [address] [place] [address] documented as of this encounter Visit Diagnoses Diagnosis Primary insomnia Persistent disorder of initiating or maintaining sleep documented in this encounter Care Teams Jewelry Facer Relationship Specialty Start Date End Date Sherice John MD [address] [place] [address] PCP - General Internal Medicine 08/08/22 documented as of this encounter
--- OUTSIDE RECORDS SUMMARY | 2024-12-15 13:55 | XMS_ITS | Clinical Summary ---
Author Organization [facility] Address [address] [place] [address] Phone Care Team Providers Care Credit Union Teller Name Role Phone Sherice John MD Primary Care Provider [phone] Allergies Active Allergy Reactions Criticality Noted Date [...] 1 (one) time each day. Active lisinopriL (PRINIVIL,ZESTR IL) 20 mg tablet Take 1 tablet (20 [...] ORAL Take by mouth if needed. Active guaifenesin/dex tromethorphan (MUCINEX DM ORAL) Take by mouth. Activ e furosemide (LASIX) 40 mg tablet Take 1 tablet (40 mg total) by mouth 1 (one) time each day. 90 each 1 4 Active empagliflozin (JARDIANCE) 10 mg tablet Take 1 tablet (10 mg total) by mouth 1 (one) time each day in the morning. 90 tablet 2 5 Active empagliflozin (JARDIANCE) 10 mg tablet Take 1 tablet (10 mg total) by mouth 1 (one) time each day in the morning. 30 tablet 11 01/17/11/28/19 Discontin ued(Reord er) Active Problems Problem Noted Date Diagnosed Date Chronic diastolic heart failure (CMS/HCC V24, CM S/HCC V28) 09/08/2024 Assessment & Plan (12/01/2024 2:57 PM EDT): HfpEF with improved symptoms on adjusted diuretic therapy and recently added Jardiance. Her volume status based on clinical assessment, last BNP and PA pressures have all been consistent with euvolemia. I reviewed her cardiac MRI which was unremarkable and did not demonstrate evidence of rare causes of HFpEF nor pericardial disease. She does have a murmur on exam likely a flow murmur based on the only valvular finding on MRI being trace MR (notably improved compared to prior echo). Her BP is well controlled and I recommended continuing to monitor weights and report worsening symptoms if they occur. Would continue current dose of Lasix and Jardiance. Assessment & Plan (09/08/2024 2:03 PM EST): [...] can be missed on echocardiogram. Pulmonary embolus (CMS/HCC V24, CMS/HCC V28) PVC (premature ventricular contraction) 11/08/19 Overview (06/13/2024): Last Assessment & Plan: Symptomatic control and low frequency of PVCs on most recent rhythm monitor. Continue diltiazem and mexiletine. Appreciate management from [facility] electrophysiology. Seasonal allergies 11/07/2022 Moderate persistent asthma [...] 03/25/2019 Vitamin D deficiency 03/25/2019 Aortic atherosclerosis (CMS/HCC V24) 03/25/2019 Mitral valve regurgitation 03/25/2019 Overview (06/13/2024): 11/2018 CAIT: Mild Last Assessment & Plan: Mild to moderate mitral regurgitation. Blood pressure goal less than 130/80. Will plan to repeat echocardiogram in around 6 months. Dilated cardiomyopathy (CMS/HCC V24, CMS/HCC V28 ) 03/25/2019 Overview (06/13/2024): 11/2018 CAIT: severly dilated Left atrium Assessment & Plan (12/01/2024 2:58 PM EDT): HfpEF with improved symptoms on adjusted diuretic therapy and recently added Jardiance. Her volume status based on clinical assessment, last BNP and PA pressures have all been consistent with euvolemia. I reviewed her cardiac MRI which was unremarkable and did not demonstrate evidence of rare causes of HFpEF nor pericardial disease. She does have a murmur on exam likely a flow murmur based on the only valvular finding on MRI being trace MR (notably improved compared to prior echo). Her BP is well controlled and I recommended continuing to monitor weights and report worsening symptoms if they occur. Would continue current dose of Lasix and Jardiance. Pulmonary hypertension (CMS/HCC V24, CMS/HCC V28 ) 02/07/2019 Overview (06/13/2024): 11/22/18 CAIT: Mild Last Assessment & Plan: Exercise-induced pulmonary hypertension. She did not respond well to sildenafil. I would defer management of this issue to her accounting assistant. Fortunately her dyspnea on exertion has been stable and is not significantly interfering with her quality of life. Mild persistent asthma 02/07/2019 GERD (gastroesophageal reflux disease) 9 Encounters Date Type Department Care Team Description 12/01/2024 1:30 PM EDT Office Visit [facility] Cardiology [facility] [address] [facility] [address] [place] [address] Mikal Jones MD Chronic diastolic heart failure (CMS/HCC V24, CMS/HCC V28) (Primary Dx); Dilated cardiomyopathy (CMS/HCC V24, CMS/HCC V28) 09/19/[address] [facility] [address] [facility] [address] [place] [address] Mikal Jones MD Appointment (Cardiac MRI) 09/18/[address] [facility] [address] [facility] [address] [place] [address] Mikal Jones MD Med Refill; Other from Last 3 Months Immunizations Name Administration [...] KNEE REPLACE KIDNEY STONE SURGERY 01/2017 PROCEDURE: HI NEPHROLITHOTOMY REMOVAL CALCULUS; COMMENT: Ureteroscopy/stone removal /stent [...] DX :JACKIE (obstructive sleep apnea) Aortic atherosclerosis (CMS/HCC V24) 03/25/2019 DX:Aortic atherosclerosis (HCC) Mitral valve regurgitation 03/25/2019 DX:Mi tral valve regurgitation; COMMENT: 11/2018 CAIT: Mild Dilated cardiomyopathy (CMS/ HCC V24, CMS/HCC V28) 03/25/2019 DX:Dilated cardiomyopathy (H CC); COMMENT: 11/2018 CAIT: severly dilated Left atrium Pulmonary hypertension (CMS/ HCC V24, CMS/HCC V28) 02/07/2019 DX:Pulmonary hypertension (H CC); COMMENT: 11/22/18 CAIT: Mild Primary insomnia DX:Primary inso mnia Seasonal allergies DX:Seasonal a llergies Vertigo DX:Vertigo Recurrent sinusitis DX:Recurrent sinusitis Family History Medical History Relation Name Comments Other: Heart Disease Father Stroke Mother Relation Name Status Comments Father Mother Social History Tobacco Use Types Packs/Day Years Used Date Smoking Tobacco: Never Smokeless Tobacco: Never Tobacco Cessation:Counseling Given: Not [...] Sign Reading Time Taken Comments Blood Pressure 138/80 12/01/2024 1:32 PM EDT Pulse 70 12/01/2024 1:32 PM EDT Temperature - - Respiratory Rate - - Oxygen Saturation 96% 12/01/2024 1:32 PM EDT Inhaled Oxygen Concentration - - Weight 78.9 kg (174 lb) 12/01/2024 1:32 PM EDT Height 162.6 cm (5' 4 ) 12/01/2024 1:32 PM EDT Body Mass Index 29.87 12/01/2024 1:32 PM EDT Plan of Treatment Upcoming Encounters Date Type Department Care Team (Late st Contact Info) Description 06/23/2025 10:40 AM EST Office Visit [facility] [address] [place] [address] Dante Ghotra NP [address] [place] [address] [address] [place] [address] Health Maintenance Due Date Last Done Comments Zoster Vaccines (1 of 2) 2002 DTaP,Tdap,and Td Vaccines (2 - Td or Tdap) 05/10/2022 05/10/2012 Colorectal Cancer Screening: Colonoscopy 07/29/2022 Depression Screening 07/29/2022 Falls Risk Assessment 07/29/2022 Hepatitis C Screening 07/29/2022 Medicare Annual Wellness Visit 07/29/2022 Social Influencers of Health Screening 07/29/2022 COVID-19 Vaccine ( season) 2025 07/25/2024, 12/04/2023, 05/18/2023, Additional history exists Hypertension/CHF/CAD Annual BMP Blood Test 06/25/2025 06/25/2024, 12/06/2023, 10/01/2023, Additional history exists Breast Cancer Screening 12/31/2025 01/01/2024 Cholesterol Screening (Lipid Panel) 09/07/2027 09/07/2022 Osteoporosis Screening (Bone Density Screening) 11/24/2034 11/24/2024 Pneumococcal Vaccine: 50+ Years Completed 07/14/2019, 08/24/2017 Influenza Vaccine Completed 05/15/2024, , 06/27/2022, Additional history exists RSV Immunization Adult Patients Completed 05/21/2024 HIB Vaccines Aged Out No longer eligi [...] Procedure Name Priority Date/Time Associated Diagnosis Comments COMPREHENSIVE METABOLIC PANEL Routine 06/25/2024 12:42 PM EST from Last 3 Months or Most Recently Relevant to Health Maintenance Results * Comprehensive metabolic panel (06/25/2024 12:42 PM EST) [facility] Glucose 85 70 - 99 mg/dL [facility] [...] AM EST Performed at: ??01 - [facility] [address] ??[id number] Application Integration Specialist: Trudy Zamudio MD, Phone: ??[phone] us Reshma Valderrama EKG/ECG TECHNICIAN LAB BLOOD ORDERABLES Final R esult [facility] 1 from Last 3 Months or Most Recently Relevant to Health Maintenance Insurance MEDICARE [facility] Care Teams Credit Union Teller Relationship Specialty Start Date End Date Sherice John MD [address] [place] [address] PCP - General Internal Medicine 01/10/19
--- OUTSIDE RECORDS SUMMARY | 2024-12-15 13:55 | XMS_ITS | Encounter Summary ---
Author Organization [employer] Address [address] [facility] 7t [place] [address] Care Team Providers Care Water Chemist Name Role Phone aPuline John MD Primary Care Provider [phone] Reason for Visit * Reason Onset Date Comments Medication Problem 05/25/2023 Encounter Details Date Type Department Care Team (Late st Contact Info) Description 05/25/[address] [facility] MEDICAL [address] [place] [address] Pauline John MD [address] [place] [address] Medication Problem Social History Tobacco Use Types [...] 11:50 AM EDT Had a apt with [place] on Sunday she was due to change medication she is taking not seeing any prescriptions in file. documented in this encounter Plan of Treatment Upcoming Encounters Date Type Department Care Team (Late st Contact Info) Description 12/15/2024 3:40 PM EDT Telemedicine [address] [address] Pauline John MD [address] [place] [address] 01/29/2025 10:00 AM EDT Office Visit [address] [address] Pauline John MD [address] [place] [address] documented as of this encounter Visit Diagnoses Not on filedocumented in this encounter Care Teams Water Chemist Relationship Specialty Start Date End Date Pauline John MD [address] [place] [address] PCP - General Internal Medicine 08/08/22 documented as of this encounter
== END 2024-12-15 12:31 | disposition home or self-care (01) ==
LOC: HO.PMC 11:28
PROVIDERS: PCP Internal Medicine; Referring Provider Hospitalist; Visit Provider Internal Medicine
DX: M80.88XA Other osteoporosis with current pathological fracture, vertebra(e), initial encounter for fracture (principal)
CPT/HCPCS: 99204

== ENCOUNTER → 2024-12-15 11:28 | Outpatient (BNVA) | payer MEDICARE, OTHER, SELFPAY | PROVIDERS: PCP Internal Medicine; Referring Provider Hospitalist; Visit Provider Internal Medicine | DX: M80.88XA Other osteoporosis with current pathological fracture, vertebra(e), initial encounter for fracture (principal); M54.50 Low back pain, unspecified; G89.29 Other chronic pain; X58.XXXA Exposure to other specified factors, initial encounter; Y93.9 Activity, unspecified; Y92.9 Unspecified place or not applicable; Y99.9 Unspecified external cause status | CPT/HCPCS: 99202 ==

== ENCOUNTER 2024-12-20 11:28 | Outpatient (REF) | payer MEDICARE, OTHER, SELFPAY ==
--- NOTE | ~2024-12-20 | MR_ITS ---
CLINICAL HISTORY: M80.88XA - Other osteoporosis with current pathological fracture, verteb... MR lumbar spine without gadolinium Comparison: None Findings: Normal alignment. There are mild acute osteoporotic type fractures at T11, L2 and L3 with severe associated edema. There are mild chronic osteoporotic type fractures at L1 and L4. No retropulsion of bone at any of the fracture sites. Fatty replacement of bone marrow is noted. There is an hemangioma within the L5 vertebral body. Cauda equina and conus medullaris within normal limits. L1-L2: Mild broad-based disc bulge. Mild facet osteoarthritis. No central canal or neural foraminal stenosis. L2-L3: Minimal disc bulge. Mild osteoarthritis of the facet joints, gkket-jzcirfv-rszo-left. No central canal or neural foraminal stenosis. L3-L4: Mild broad-based disc bulge. Moderate facet osteoarthritis. No central canal stenosis. Mild stenosis of bilateral neural foramina. L4-L5: Small disc osteophyte complex. Moderate facet osteoarthritis. No significant central canal stenosis. Moderate stenosis of the left neural foramen. Mild narrowing of the right neural foramen. L5-S1: Moderate broad-based disc bulge. Moderate facet osteoarthritis. No central canal stenosis. Moderate stenosis of bilateral neural foramina. Paraspinous musculature intact. There is colonic diverticulosis. There is mild hydronephrosis of the bilateral kidneys. IMPRESSION: 1. Acute osteoporotic type fractures at T11, L2 and L3. 2. Mild hydronephrosis of the bilateral kidneys. 3. Multilevel spondylosis and facet osteoarthritis as described. This document has been electronically signed by: Malena Byrne MD on 12/20/2024 13:19:21
--- OUTSIDE RECORDS SUMMARY | 2024-12-20 11:32 | XMS_ITS | Encounter Summary ---
Author Organization [facility] Address [address] [place] [address] Care Team Providers Care Asphalt Tamping Machine Operator Name Role Phone Sherice John MD Primary Care Provider Unavailab Mikal Rodriguez MD Unavailable Dante Ghotra NP Unavailable Marvin Pritchett MD Unavailable [phone] Shahnaz Sanchez PA-C Unavailable Encounter Details Date Type Department Care Team Description 03/24/2022 Telephone [facility]io [facility] [address] [address] Dante Ghotra NP [address] [place] [address] [phone] Social History Tobacco Use Types Packs/Day Years [...] encounter Miscellaneous Notes * Telephone Encounter - Vi Finley - 03/30/2022 9:53 AM EDT Patient has been added the to the cancellation list for Dr Pritchett and Dr Myrick. * Telephone Encounter - Dante Ghotra NP - 03/24/2022 5:07 PM EDT Please try to move up EP appointment for symptomatic PVCs documented in this encounter Plan of Treatment Not on file documented as of this encounter Visit Diagnoses Not on filedocumented in this encounter Care Teams Asphalt Tamping Machine Operator Relationship Specialty Start Date End Date Sherice John MD PCP - General Internal Medicine 01/10/19 Mikal Jones MD [address] [address] Rn Managed Care Cardiology 08/06/20 Dante Ghotra NP 300 [facility] 154 [place] [address] Nurse Practitioner Cardiology 03/21/22 Marvin Pritchett MD [address] [address] Rn Managed Care Cardiology 04/21/22 Shahnaz Sanchez PA-C 300 [facility] 154 [address] Rn Managed Care Cardiology 04/21/22 documented as of this encounter
--- OUTSIDE RECORDS SUMMARY | 2024-12-20 11:32 | XMS_ITS | Encounter Summary ---
Author Organization [employer] Address [address] [place] [address] 7t [place] [address] Care Team Providers Care Apprentice Carpenter Name Role Phone Sherice John MD Primary Care Provider [phone] Reason for Visit * Reason Onset Date Comments Med Refill 12/18/2024 CS Rx refill on Tramadol Encounter Details Date Type Department Care Team (Late st Contact Info) Description 12/18/2024 Refill [facility] MEDICAL [address] [place] [address] Sherice John MD [address] [place] [address] Acute midline low back pain without sciatica Social History Tobacco Use Types Packs/Day Years [...] * Telephone Encounter - SCOTT Yoo - 12/18/2024 10:19 AM EDT [facility] Last fill Date: 12/12/24 #20 [facility] sold Date: 12/13 Last OV: 12/15/24 Next OV: 01/29/25 Last UTOX: CSA Date: DNF Date: refill is due * Telephone Encounter - Sarah Piña - 12/18/2024 8:45 AM EDT Patient called for refill of the following medication traMADol (Ultram) 50 MG tablet Please use the following pharmacy [facility]/pharmacy #[id number] - [facility] [address] [address] [place] #: [id number] documented in this encounter Plan of Treatment Upcoming Encounters Date Type Department Care Team (Late st Contact Info) Description 01/29/2025 10:00 AM EDT Office Visit [place] [facility] MEDICAL [address] [place] [address] Sherice John MD [address] [place] [address] documented as of this encounter Visit Diagnoses Diagnosis Acute midline low back pain without sciatica documented in this encounter Care Teams Apprentice Carpenter Relationship Specialty Start Date End Date Sherice John MD [address] [place] [address] PCP - General Internal Medicine 08/08/22 documented as of this encounter
--- OUTSIDE RECORDS SUMMARY | 2024-12-20 11:32 | XMS_ITS | Encounter Summary ---
Author Organization [employer] Address [address] [place] [address] 7t [place] [address] Care Team Providers Care Grinder Chipper Name Role Phone Sherice John MD Primary Care Provider [phone] Reason for Visit * Reason Onset Date Comments Med Refill 12/18/2024 Prolia Rx to [facility] mail order pharmacy Medication Problem 12/18/2024 Encounter Details Date Type Department Care Team (Late st Contact Info) Description 12/18/2024 Refill [place] [facility] MEDICAL [address] [place] [address] Sherice John MD 73 [place] [address] Age-related osteoporosis with current pathological fracture with delayed healing, subsequent encounter Social History Tobacco Use Types Packs/Day Years [...] Telephone Encounter - SCOTT Yoo - 12/18/2024 9:54 AM EDT Prolia Rx qued - pharmacy changed to [facility] at patients request. Last OV: 12/15/24 Next OV: 01/29/25 * Telephone Encounter - Sarah Piña - 12/18/2024 8:47 AM EDT Patient called regarding the following medication denosumab (Prolia) 60 MG/ML solution prefilled syringe Please resend to the following pharmacy as local pharmacy will not fill this script [facility] - ANAIS [facility] - [facility] AT Portal to Registered [facility] Sites documented in this encounter Plan of Treatment Upcoming Encounters Date Type Department Care Team (Late st Contact Info) Description 01/29/2025 10:00 AM EDT Office Visit [place] [facility] MED[facility] [address] [place] [address] Sherice John MD [address] [place] [address] documented as of this encounter Visit Diagnoses Diagnosis Age-related osteoporosis with current pathological fracture with delayed healing, subsequent encounter documented in this encounter Care Teams Grinder Chipper Relationship Specialty Start Date End Date Sherice John MD [address] [place] [address] PCP - General Internal Medicine 08/08/22 documented as of this encounter
--- OUTSIDE RECORDS SUMMARY | 2024-12-20 11:32 | XMS_ITS | Encounter Summary ---
Author Organization [facility] Address [address] [place] [address] Care Team Providers Care Gymnastics Coach Or Instructor Name Role Phone Sherice John MD Primary Care Provider Unavailab Mikal Rodriguez MD Unavailable Dante Ghotra NP Unavailable Marvin Pritchett MD Unavailable Shahnaz Sanchez PA-C Unavailable Encounter Details Date Type Department Care Team Description 09/24/2023 Pt. Non Urgent Medical Question Cardio [facility] [address] [facility] [address] [place] [phone] Dante Ghotra NP [address] [place] [address] [phone] Social History Tobacco Use Types Packs/Day Years [...] on filedocumented in this encounter Care Teams Gymnastics Coach Or Instructor Relationship Specialty Start Date End Date Sherice John MD PCP - General Internal Medicine 01/10/19 Mikal Jones MD 300 [facility] [address] [place] [address] Tear Down Worker Cardiology 08/06/20 Dante Ghotra NP [address] [address] Nurse Practitioner Cardiology 03/21/22 Marvin Pritchett MD 300 [facility] [address] [place] [address] Tear Down Worker Cardiology 04/21/22 Shahnaz Sanchez PA-C [address] [address] Tear Down Worker Cardiology 04/21/22 documented as of this encounter
--- OUTSIDE RECORDS SUMMARY | 2024-12-20 11:32 | XMS_ITS | Encounter Summary ---
Author Organization [facility] Address [address] [place] [address] Care Team Providers Care Middle School Math Teacher Name Role Phone Sherice John MD Primary Care Provider Unavailab Mikal Rodriguez MD Unavailable Dante Ghotra NP Unavailable [phone] Marvin Pritchett MD Unavailable Shahnaz Sanchez PA-C Unavailable Encounter Details Date Type Department Care Team Description 03/06/2023 Pt. Non Urgent Medical Question Cardio [facility] [address] [place] [address] Mikal Jones MD 300 [facility] [address] [place] [address] Social History Tobacco Use Types Packs/Day Years [...] Pulmonology visit note both in Epic from [facility]. Thank you! * Telephone Encounter - Raquel [...] Jones Sent: 03/06/2023 10:18 AM EDT Subject: Straightedge Worker/client success specialist communications Hi Dr Jones/ISA Please let me know what the results of communications with Dr Joni Deleon. His office staff says that I should contact my client success specialist (you), probably because the PFT and Perfusion [...] on filedocumented in this encounter Care Teams Middle School Math Teacher Relationship Specialty Start Date End Date Sherice John MD PCP - General Internal Medicine 01/10/19 Mikal Jones MD [address] [address] Dairy Chemist Cardiology 08/06/20 Dante Ghotra NP [address] [address] Nurse Practitioner Cardiology 03/21/22 Marvin Pritchett MD 300 [facility] 154 [place] [address] Dairy Chemist Cardiology 04/21/22 Shahnaz Sanchez PA-C [address] [place] [address] Dairy Chemist Cardiology 04/21/22 documented as of this encounter
--- OUTSIDE RECORDS SUMMARY | 2024-12-20 11:32 | XMS_ITS | Encounter Summary ---
Author Organization [facility] Address [address] [place] [address] Care Team Providers Care Irrigation Manager Name Role Phone Sherice John MD Primary Care Provider Unavailab Mikal Rodriguez MD Unavailable Dante Ghotra NP Unavailable [phone] Marvin Pritchett MD Unavailable [phone] Shahnaz Sanchez PA-C Unavailable Encounter Details Date Type Department Care Team Description 01/03/2022 [facility] Medical Records [address] [place] [address] Abstract, Provider Social History Tobacco Use Types [...] on filedocumented in this encounter Care Teams Irrigation Manager Relationship Specialty Start Date End Date Sherice John MD PCP - General Internal Medicine 01/10/19 Mikal Jones MD 300 [facility] [address] [place] [address] District Or District Office Director Cardiology 08/06/20 Dante Ghotra NP 300 [facility] [address] [place] [address] Nurse Practitioner Cardiology 03/21/22 Marvin Pritchett MD [address] [facility] 154 [place] [address] District Or District Office Director Cardiology 04/21/22 Sahhnaz Sanchez PA-C [address] [facility] 154 [place] [address] District Or District Office Director Cardiology 04/21/22 documented as of this encounter
--- OUTSIDE RECORDS SUMMARY | 2024-12-20 11:32 | XMS_ITS | Encounter Summary ---
Author Organization [facility] Address [address] [place] [address] Care Team Providers Care Medical Sales Name Role Phone Sherice John MD Primary Care Provider Unavailab Mikal Rodriguez MD Unavailable Dante Ghotra NP Unavailable [phone] Marvin Pritchett MD Unavailable [phone] Shahnaz Sanchez PA-C Unavailable Encounter Details Date Type Department Care Team Description 11/03/2022 Header Machine Operator Report Medical Records [address] [place] [address] Abstract, Provider Social History Tobacco Use Types [...] on filedocumented in this encounter Care Teams Medical Sales Relationship Specialty Start Date End Date Sherice John MD PCP - General Internal Medicine 01/10/19 Mikal Jones MD [address] [id number] Depot Manager Cardiology 08/06/20 Dante Ghotra NP [address] [phone] Nurse Practitioner Cardiology 03/21/22 Marvin Pritchett MD 300 [facility] 154 [place] [address] Depot Manager Cardiology 04/21/22 Shahnaz Sanchez PA-C [address] [place] [address] Depot Manager Cardiology 04/21/22 documented as of this encounter
--- OUTSIDE RECORDS SUMMARY | 2024-12-20 11:32 | XMS_ITS | Encounter Summary ---
Author Organization [facility] Address [address] [place] [address] Care Team Providers Care Digital Designer Name Role Phone Sherice John MD Primary Care Provider Unavailab Mikal Rodriguez MD Unavailable Dante Ghotra NP Unavailable Marvin Pritchett MD Unavailable [phone] Shahnaz Sanchez PA-C Unavailable Encounter Details Date Type Department Care Team Description 03/20/2022 Pt. Non Urgent Medical Question Cardio PVC [facility] [address] [place] [address] Dante Ghotra NP [address] [place] [phone] Social History Tobacco Use Types Packs/Day Years [...] on filedocumented in this encounter Care Teams Digital Designer Relationship Specialty Start Date End Date Sherice John MD PCP - General Internal Medicine 01/10/19 Mikal Jones MD [address] [address] Sales Vice President Cardiology 08/06/20 Dante Ghotra NP [address] [address] Nurse Practitioner Cardiology 03/21/22 Marvin Pritchett MD [address] [address] Sales Vice President Cardiology 04/21/22 Shahnaz Sanchez PA-C [address] [address] Sales Vice President Cardiology 04/21/22 documented as of this encounter
--- OUTSIDE RECORDS SUMMARY | 2024-12-20 11:32 | XMS_ITS | Encounter Summary ---
Author Organization [facility] Address [address] [place] [address] Care Team Providers Care Scoop Machine Operator Name Role Phone Sherice John MD Primary Care Provider Unavailab Mikal Rodriguez MD Unavailable Dante Ghotra NP Unavailable [phone] Marvin Pritchett MD Unavailable [phone] Shahnaz Sanchez PA-C Unavailable Encounter Details Date Type Department Care Team Description 06/16/2024 SCAN Medical Records [address] [place] [address] Abstract, Provider Social History Tobacco Use Types [...] on filedocumented in this encounter Care Teams Scoop Machine Operator Relationship Specialty Start Date End Date Sherice John MD PCP - General Internal Medicine 01/10/19 Mikal Jones MD [address] [facility] [address] [place] [address] Medication Reconciliation Technician Cardiology 08/06/20 Dante Ghotra NP [address] [facility] [address] [place] [address] Nurse Practitioner Cardiology 03/21/22 Marvin Pritchett MD 300 [facility] 154 [place] [address] Medication Reconciliation Technician Cardiology 04/21/22 Shahnaz Sanchez PA-C [address] [address] Medication Reconciliation Technician Cardiology 04/21/22 documented as of this encounter
--- OUTSIDE RECORDS SUMMARY | 2024-12-20 11:32 | XMS_ITS | Encounter Summary ---
Author Organization [employer] Address [address] [facility] 7t [place] [address] Care Team Providers Care Sock Lining Stitcher Name Role Phone Sherice John MD Primary Care Provider [phone] Encounter Details Date Type Department Care Team (Late st Contact Info) Description 09/23/2024 Orders Only [facility] [address] [place] [address] Sherice John MD [address] [place] [address] Social History Tobacco Use Types Packs/Day Years [...] Description 01/29/2025 10:00 AM EDT Office Visit [facility] MEDICAL [address] [place] [address] Sherice John MD [address] [place] [address] documented as of this encounter Procedures Procedure Name Priority Date/Time Associated Diagnosis Comments COLONOSCOPY Routine 05/06/2024 1:27 PM EDT documented in this encounter Results * Colonoscopy (05/06/2024 1:27 PM EDT) Sherice John MD HEALTH MAINTENANCE Final Result documented in this encounter Visit Diagnoses Not on filedocumented in this encounter Care Teams Sock Lining Stitcher Relationship Specialty Start Date End Date Sherice John MD [address] [place] [address] PCP - General Internal Medicine 08/08/22 documented as of this encounter
--- OUTSIDE RECORDS SUMMARY | 2024-12-20 11:32 | XMS_ITS | Encounter Summary ---
Author Organization [facility] Address [address] [place] [address] Care Team Providers Care Sports Broadcasting Internship Name Role Phone Sherice John MD Primary Care Provider Unavailab Mikal Rodriguez MD Unavailable Dante Ghotra NP Unavailable Marvin Pritchett MD Unavailable [phone] Shahnaz Sanchez PA-C Unavailable Reason for Visit * Reason Onset Date Comments refill request 04/29/2021 Encounter Details Date Type Department Care Team Description 04/29/2021 Refill Pulmonology - [address] [place] [address] Sherice John MD refill request [...] NO Patients current insurance carrier is: Payor: MEDICARE-[employer](BHI) / Plan: MEDICARE[employer](BHI) / Product Type: MEDICARE [id number] documented in this encounter Plan of Treatment Not on file documented as of this encounter Visit Diagnoses Not on filedocumented in this encounter Care Teams Sports Broadcasting Internship Relationship Specialty Start Date End Date Sherice John MD PCP - General Internal Medicine 01/10/19 Mikal Jones MD [address] [address] District Leader Cardiology 08/06/20 Dante Ghotra NP [address] [address] Nurse Practitioner Cardiology 03/21/22 Marvin Pritchett MD [address] [address] District Leader Cardiology 04/21/22 Shahnaz Sanchez PA-C [address] [address] District Leader Cardiology 04/21/22 documented as of this encounter
--- OUTSIDE RECORDS SUMMARY | 2024-12-20 11:32 | XMS_ITS | Encounter Summary ---
Author Organization [facility] Address [address] [place] [address] Care Team Providers Care Marketing Rep Name Role Phone Sherice John MD Primary Care Provider Unavailab Mikal Rodriguez MD Unavailable Dante Ghotra NP Unavailable [phone] Marvin Pritchett MD Unavailable [phone] Shahnaz Sanchez PA-C Unavailable Encounter Details Date Type Department Care Team Description 10/21/2019 Credit Assistant Report Medical Records [address] [place] [address] [place] NP Social History Tobacco Use [...] on filedocumented in this encounter Care Teams Marketing Rep Relationship Specialty Start Date End Date Sherice John MD PCP - General Internal Medicine 01/10/19 Mikal Jones MD [address] [address] Hair Spinner Cardiology 08/06/20 Dante Ghotra NP [address] [id number] Nurse Practitioner Cardiology 03/21/22 Marvin Pritchett MD [address] [address] Hair Spinner Cardiology 04/21/22 Shahnaz Sanchez PA-C [address] [place] [address] Hair Spinner Cardiology 04/21/22 documented as of this encounter
--- OUTSIDE RECORDS SUMMARY | 2024-12-20 11:32 | XMS_ITS | Encounter Summary ---
Author Organization [facility] Address [address] [place] [address] Care Team Providers Care Rigger Apprentice Name Role Phone Sherice John MD Primary Care Provider Unavailab Mikal Rodriguez MD Unavailable Dante Ghotra NP Unavailable [phone] Marvin Pritchett MD Unavailable [phone] Shahnaz Sanchez PA-C Unavailable Encounter Details Date Type Department Care Team Description 03/20/2023 Aquacultural Worker Supervisor Report Medical Records [address] [place] [address] Joni Deleon MD Social History Tobacco Use [...] on filedocumented in this encounter Care Teams Rigger Apprentice Relationship Specialty Start Date End Date Sherice John MD PCP - General Internal Medicine 01/10/19 Mikal Jones MD [address] [phone] Supervisor Aluminum Boat Assembly Cardiology 08/06/20 Dante hGotra NP 300 [facility] 154 [place], [place] [phone] Nurse Practitioner Cardiology 03/21/22 Marvin Pritchett MD [address] [place] [address] Supervisor Aluminum Boat Assembly Cardiology 04/21/22 Shahnaz Sanchez PA-C [address] [place] [address] Supervisor Aluminum Boat Assembly Cardiology 04/21/22 documented as of this encounter
--- OUTSIDE RECORDS SUMMARY | 2024-12-20 11:32 | XMS_ITS | Encounter Summary ---
Author Organization [facility] Address [address] [place] [address] Care Team Providers Care Cut Off Machine Operator Name Role Phone Sherice John MD Primary Care Provider Unavailab Mikal Rodriguez MD Unavailable Dante Ghotra NP Unavailable [phone] Mavrin Pritchett MD Unavailable [phone] Shahnaz Sanchez PA-C Unavailable Encounter Details Date Type Department Care Team Description 03/16/2023 SCAN Medical Records [address] [place] [address] Marquita Mosqueda NP Social History Tobacco Use [...] on filedocumented in this encounter Care Teams Cut Off Machine Operator Relationship Specialty Start Date End Date Sherice John MD PCP - General Internal Medicine 01/10/19 Mikal Jones MD [address] [phone] Bariatric Surgeon Cardiology 08/06/20 Dante Ghotra NP [address] [address] Nurse Practitioner Cardiology 03/21/22 Marvin Pritchett MD [address] [place] [address] Bariatric Surgeon Cardiology 04/21/22 Shahnaz Sanchez PA-C [address] [place] [address] Bariatric Surgeon Cardiology 04/21/22 documented as of this encounter
--- OUTSIDE RECORDS SUMMARY | 2024-12-20 11:32 | XMS_ITS | Encounter Summary ---
Author Organization [facility] Address [address] [place] [address] Care Team Providers Care Dietary Clerk Name Role Phone Sherice John MD Primary Care Provider Unavailab Mikal Rodriguez MD Unavailable Dante Ghotra NP Unavailable [phone] Marvin Pritchett MD Unavailable [phone] Shahnaz Sanchez PA-C Unavailable Reason for Visit * Reason Onset Date Comments Shortness Of Breath 09/14/2022 Encounter Details Date Type Department Care Team Description 09/14/2022 Telephone Cardio PVC [facility] [address] [place] [id number] Mikal Jones MD [address] [facility] [address] [place] [address] Shortness Of Breath Social History Tobacco Use Types Packs/Day Years [...] Telephone Encounter - Bernice Montoya R.N. - 09/14/2022 2:44 PM EST I spoke with pt this afternoon. She has been increasing her exercise/swimming and states she feels so exhausted after. She has also been having more asthma symptoms and a little more sob. She takes bisoprolol 5 mg daily, states she checks per pulse on the oximeter and it often reads 38-39, however,she knows that it can look falsely low because of PVCs. BP has been a little higher, 137/75 153/76.She is questioning if she should increase the bisoprolol, thinks maybe she is having increased PVCs. * Telephone Encounter - David Villalta - 09/14/2022 2:25 PM EST Patient is calling stating she has been on metoprolol and for thee last three days has been having shortness of breathe (not presently), fatigue and believes her pulse has been low, please call patient. documented in this encounter Plan of Treatment Not on file documented as of this encounter Visit Diagnoses Not on filedocumented in this encounter Care Teams Dietary Clerk Relationship Specialty Start Date End Date Sherice John MD PCP - General Internal Medicine 01/10/19 Mikal Jones MD [address] [address] Collections Technician Cardiology 08/06/20 Dante Ghotra NP [address] [address] Nurse Practitioner Cardiology 03/21/22 Marvin Pritchett MD [address] [address] Collections Technician Cardiology 04/21/22 Shahnaz Sanchez PA-C [address] [address] Collections Technician Cardiology 04/21/22 documented as of this encounter
--- OUTSIDE RECORDS SUMMARY | 2024-12-20 11:32 | XMS_ITS | Encounter Summary ---
Author Organization [employer] Address 75 [facility] 7t [place] [address] Care Team Providers Care Sales Assoc Name Role Phone Sherice John MD Primary Care Provider [phone] Encounter Details Date Type Department Care Team (Late st Contact Info) Description 12/15/2024 3:40 PM EDT Telemedicine [facility] MEDICAL [address] [place] [address] Sherice John MD [address] [place] [address] Acute bilateral low back pain without sciatica (Primary Dx); Age-related osteoporosis with current pathological fracture with [...] Progress Notes * Sherice John MD - 12/15/2024 3:40 PM EDT Subjective Patient ID: Mary Delgado is a 74 y.o. female who presents for No chief complaint on file.. HPI Back pain: acutely worse. Went and saw a spine doctor today that her farmworker diversified crops recommended. Does have a compression fracture, sub-acute, seen on xray. He had talked about doing a kyphoplasty. Going for another MRI to see what's going on in more detail, He didn't give her anything for pain, tho, he says he doesn't do that. Took muscle relaxant and tramadol, doses; both seem to be helping a little bit. No real sedation, tho she is not talking prior to driving. Needs refill on flexeril, not on tramadol yet. Noside effects to either. Osteoporosis: Didn't end up taking her prolia dose when it was due ton June, would like to get back on track given her recent fracture. Review of Systems Was supposed to be getting her hip surgery today, so she had to reschedule. Objective Physical Exam Patient is alert and oriented, no apparent distress Head normo-cephalic, face symmetric Speech clear, no audible wheezing No respiratory distress, speaking full sentences Affect normal Assessment/Plan Diagnoses and all orders for this visit: Acute bilateral low back pain without sciatica Comments: pt will be looking into getting kyphoplastry through pain cente.r Orders: - cyclobenzaprine (Flexeril) 10 MG tablet; Take 1 tablet (10 mg) by mouth if needed in the morning,at noon, and at bedtime for muscle spasms. Age-related osteoporosis with current pathological fracture with delayed healing, subsequent encounter - denosumab (Prolia) 60 MG/ML solution prefilled syringe; Inject 1 mL (60 mg) under the skin 1 (one) time for 1 dose. documented in this encounter Plan of Treatment Upcoming Encounters Date Type Department Care Team (Late st Contact Info) Description 01/29/2025 10:00 AM EDT Office Visit [facility] MEDICAL [address] [place] [address] Sherice John MD [address] [place] [address] documented as of this encounter Visit Diagnoses Diagnosis Acute bilateral low back pain without sciatica- Primary Age-related osteoporosis with current pathological fracture with delayed healing, subsequent encounter documented in this encounter Care Teams Sales Assoc Relationship Specialty Start Date End Date Sherice John MD [address] [place] [address] PCP - General Internal Medicine 08/08/22 documented as of this encounter
--- OUTSIDE RECORDS SUMMARY | 2024-12-20 11:32 | XMS_ITS | Encounter Summary ---
Author Organization [facility] Address [address] [place] [address] Care Team Providers Care Student Success Counselor Name Role Phone Sherice John MD Primary Care Provider Unavailab Mikal Rodriguez MD Unavailable Dante Ghotra NP Unavailable Marvin Pritchett MD Unavailable [phone] Shahnaz Sanchez PA-C Unavailable Encounter Details Date Type Department Care Team Description 08/04/2020 SCAN Medical Records [address] [place] [address] Dante Ghotra NP [address] [place], [place] [phone] Social History Tobacco Use Types Packs/Day Years [...] Date/Time Associated Diagnosis Comments OUTSIDE LAB Routine 08/04/2020 documented in this encounter Results * OUTSIDE LAB (08/04/2020) Provider Default LAB documented in this encounter Visit Diagnoses Not on filedocumented in this encounter Care Teams Student Success Counselor Relationship Specialty Start Date End Date Sherice John MD PCP - General Internal Medicine 01/10/19 Mikal Jones MD [address] [address] Marketer Cardiology 08/06/20 Dante Ghotra NP 300 [facility] [address] [place] [address] Nurse Practitioner Cardiology 03/21/22 Marvin Pritchett MD [address] [address] Marketer Cardiology 04/21/22 Shahnaz Sanchez PA-C 300 [facility] 154 [place] [address] Marketer Cardiology 04/21/22 documented as of this encounter
--- OUTSIDE RECORDS SUMMARY | 2024-12-20 11:32 | XMS_ITS | Encounter Summary ---
Author Organization [facility] Address [address] [place] [address] Care Team Providers Care Mill Washer Name Role Phone Sherice John MD Primary Care Provider Unavailab Mikal Rodriguez MD Unavailable Dante Ghotra NP Unavailable [phone] Marvin Pritchett MD Unavailable [phone] Shahnaz Sanchez PA-C Unavailable Encounter Details Date Type Department Care Team Description 04/07/2022 Supervisor Gate Services Report Medical Records [address] [place] [address] Mary Domínguez Jo Social History Tobacco Use [...] on filedocumented in this encounter Care Teams Mill Washer Relationship Specialty Start Date End Date Sherice John MD PCP - General Internal Medicine 01/10/19 Mikal Jones MD [address] [facility] [address] [place] [address] Raveler Cardiology 08/06/20 Dante Ghotra NP [address] [facility] [address] [place] [address] Nurse Practitioner Cardiology 03/21/22 Marvin Pritchett MD 300 [facility] 154 [place] [address] Raveler Cardiology 04/21/22 Shahnaz Sanchez PA-C [address] [address] Raveler Cardiology 04/21/22 documented as of this encounter
--- OUTSIDE RECORDS SUMMARY | 2024-12-20 11:32 | XMS_ITS | Encounter Summary ---
Author Organization [facility] Address [address] [place] [address] Care Team Providers Care Clip Bolter And Wrapper Name Role Phone Sherice John MD Primary Care Provider Unavailab Mikal Rodriguze MD Unavailable Dante Ghotra NP Unavailable [phone] Marvin Pritchett MD Unavailable [phone] Shahnaz Sanchez PA-C Unavailable Encounter Details Date Type Department Care Team Description 03/27/2023 SCAN Medical Records [address] [place] [address] Abstract, Provider Social History Tobacco Use Types [...] on filedocumented in this encounter Care Teams Clip Bolter And Wrapper Relationship Specialty Start Date End Date Sherice John MD PCP - General Internal Medicine 01/10/19 Mikal Jones MD 300 [facility] [address] [place] [address] Meat Slicer Cardiology 08/06/20 Dante Ghotra NP 300 [facility] [address] [place] [address] Nurse Practitioner Cardiology 03/21/22 Marvin Pritchett MD 300 [facility] 154 [place] [address] Meat Slicer Cardiology 04/21/22 Shahnaz Sanchez PA-C [address] [address] Meat Slicer Cardiology 04/21/22 documented as of this encounter
--- OUTSIDE RECORDS SUMMARY | 2024-12-20 11:32 | XMS_ITS | Encounter Summary ---
Author Organization [facility] Address [address] [place] [address] Care Team Providers Care Digital Traffic Coordinator Name Role Phone Sherice John MD Primary Care Provider Unavailab Mikal Rodriguez MD Unavailable Dante Ghotra NP Unavailable [phone] Marvin Pritchett MD Unavailable [phone] Shahnaz Sanchez PA-C Unavailable Encounter Details Date Type Department Care Team Description 12/05/2019 Transfer Records Medical Records [address] [place] [address] Abstract, Provider Social History Tobacco Use Types [...] filedocumented in this encounter Care Teams Digital Traffic Coordinator Relationship Specialty Start Date End Date Sherice John MD PCP - General Internal Medicine 01/10/19 Mikal Jones MD [address] [id number] Last Chalker Cardiology 08/06/20 Dante Ghotra NP [address] [phone] Nurse Practitioner Cardiology 03/21/22 Marvin Pritchett MD [address] [address] Last Chalker Cardiology 04/21/22 Shahnaz Sanchez PA-C [address] [place] [address] Last Chalker Cardiology 04/21/22 documented as of this encounter
--- OUTSIDE RECORDS SUMMARY | 2024-12-20 11:32 | XMS_ITS | Encounter Summary ---
Author Organization [facility] Address [address] [place] [address] Care Team Providers Care Supervisor Histology Name Role Phone Sherice John MD Primary Care Provider Unavailab Mikal Rodriguez MD Unavailable Dante Ghotra NP Unavailable [phone] Marvin Pritchett MD Unavailable [phone] Shahnaz Sanchez PA-C Unavailable Encounter Details Date Type Department Care Team Description 03/24/2022 Pt. Non Urgent Medical Question Cardio PVC [facility] [address] [place] [address] Dante Ghotra NP [address] [place] [phone] Social History Tobacco Use Types Packs/Day Years [...] Telephone Encounter - Brenda Maurer C.M.A. - 03/24/2022 11:38 AM EDTFrom: Mary Delgado To: Angel Ghotra Sent: 03/24/2022 11:34 AM EDT Subject: Echocardiogram Harvey Mercado Its been over a week since I had the echocardiogram and I haven't seen any results. I am still getting short of breath especially with exertion. I use my rescue inhaler but it only work for a short time. I went swimming yesterday and was exhausted when I got home. I am still feeling extremely fatigued today. O2 in lower 90s. [address] night: BP 122/66 pulse 40 this morning: BP average 138/91 pulse 48 documented in this encounter Plan of Treatment Not on file documented as of this encounter Visit Diagnoses Not on filedocumented in this encounter Care Teams Supervisor Histology Relationship Specialty Start Date End Date Sherice John MD PCP - General Internal Medicine 01/10/19 Mikal Jones MD [address] [address] Gasoline Truck Operator Cardiology 08/06/20 Dante Ghotra NP [address] [address] Nurse Practitioner Cardiology 03/21/22 Marvin Pritchett MD [address] [address] Gasoline Truck Operator Cardiology 04/21/22 Shahnaz Sanchez PA-C [address] [address] Gasoline Truck Operator Cardiology 04/21/22 documented as of this encounter
--- OUTSIDE RECORDS SUMMARY | 2024-12-20 11:32 | XMS_ITS | Encounter Summary ---
Author Organization [facility] Address [address] [place] [address] Care Team Providers Care Documentation Liaison Name Role Phone Sherice John MD Primary Care Provider Unavailab Mikal Rodriguez MD Unavailable Dante Ghotra NP Unavailable [phone] Marvin Pritchett MD Unavailable [phone] Shahnaz Sanchez PA-C Unavailable Encounter Details Date Type Department Care Team Description 10/03/2022 Telephone Cardio PVC [facility] [address] [place] [address] Dante Ghotra NP [address] [place] [id number] Social History Tobacco Use Types Packs/Day Years [...] beats documented in this encounter Care Teams Documentation Liaison Relationship Specialty Start Date End Date Sherice John MD PCP - General Internal Medicine 01/10/19 Mikal Jones MD [address] [address] Building Supplies Salesperson Retail Cardiology 08/06/20 Dante Ghotra NP [address] [address] Nurse Practitioner Cardiology 03/21/22 Marvin Pritchett MD [address] [address] Building Supplies Salesperson Retail Cardiology 04/21/22 Shahnaz Sanchez PA-C [address] [address] Building Supplies Salesperson Retail Cardiology 04/21/22 documented as of this encounter
--- OUTSIDE RECORDS SUMMARY | 2024-12-20 11:32 | XMS_ITS | Encounter Summary ---
Author Organization [facility] Address [address] [place] [address] Care Team Providers Care Certified Coding Specialist Name Role Phone Sherice John MD Primary Care Provider Unavailab Mikal Rodriguez MD Unavailable Dante Ghotra NP Unavailable Marvin Pritchett MD Unavailable [phone] Shahnaz Sanchez PA-C Unavailable Encounter Details Date Type Department Care Team Description 07/25/2023 SCAN Medical Records [address] [place] [address] Abstract, Provider Social History Tobacco Use Types [...] on filedocumented in this encounter Care Teams Certified Coding Specialist Relationship Specialty Start Date End Date Sherice John MD PCP - General Internal Medicine 01/10/19 Mikal Jones MD [address] [phone] Delivery Aide Cardiology 08/06/20 Dante Ghotra NP [address] [phone] Nurse Practitioner Cardiology 03/21/22 Marvin Pritchett MD [address] [place] [address] Delivery Aide Cardiology 04/21/22 Shahnaz Sanchez PA-C [address] [place] [address] Delivery Aide Cardiology 04/21/22 documented as of this encounter
--- OUTSIDE RECORDS SUMMARY | 2024-12-20 11:32 | XMS_ITS | Encounter Summary ---
Author Organization [facility] Address [address] [place] [address] Care Team Providers Care Overnight Cashier Name Role Phone Sherice John MD Primary Care Provider Unavailab Mikal Rodriguez MD Unavailable Dante Ghotra NP Unavailable Marvin Pritchett MD Unavailable Shahnaz Sanchez PA-C Unavailable Encounter Details Date Type Department Care Team Description 09/18/2023 Pt. Non Urgent Medical Question Cardio PVC [facility] 410 [address] [facility] [address] [place] [phone] Mikal Jones MD [address] [place] [address] Social History Tobacco Use Types Packs/Day Years [...] on filedocumented in this encounter Care Teams Overnight Cashier Relationship Specialty Start Date End Date Sherice John MD PCP - General Internal Medicine 01/10/19 Mikal Jones MD [address] [place] [address] [place] [address] Chromium Plater Cardiology 08/06/20 Dante Ghotra NP 300 [facility] [address] [place] [address] Nurse Practitioner Cardiology 03/21/22 Marvin Pritchett MD 300 [facility] 154 [place] [address] Chromium Plater Cardiology 04/21/22 Shahnaz Sanchez PA-C 300 [facility] 154 [place] [address] Chromium Plater Cardiology 04/21/22 documented as of this encounter
--- OUTSIDE RECORDS SUMMARY | 2024-12-20 11:33 | XMS_ITS | Encounter Summary ---
Author Organization [facility] Address [address] [place] [address] Care Team Providers Care Olive Grower Name Role Phone Sherice John MD Primary Care Provider Unavailab Mikal Rodriguez MD Unavailable Dante Ghotra NP Unavailable Marvin Pritchett MD Unavailable [phone] Shahnaz Sanchez PA-C Unavailable Reason for Visit * Reason Onset Date Comments Error 01/04/2023 Encounter Details Date Type Department Care Team Description 01/04/2023 Telephone Cardio P[facility] [address] [place] [address] Mikal Jones MD [address] [place] [id number] Error Social History Tobacco Use Types Packs/Day Years [...] on filedocumented in this encounter Care Teams Olive Grower Relationship Specialty Start Date End Date Sherice John MD PCP - General Internal Medicine 01/10/19 Mikal Jones MD [address] [place] [address] Anesthesiology Fellow Cardiology 08/06/20 Dante Ghotra NP 300 [facility] [address] [place] [address] Nurse Practitioner Cardiology 03/21/22 Marvin Pritchett MD 300 [facility] [address] [place] [address] Anesthesiology Fellow Cardiology 04/21/22 Shahnaz Sanchez PA-C [address] [address] Anesthesiology Fellow Cardiology 04/21/22 documented as of this encounter
--- OUTSIDE RECORDS SUMMARY | 2024-12-20 11:33 | XMS_ITS | Clinical Summary ---
Author Organization [facility] [employer] [facility] Address [address] [place] [address] Phone Care Team Providers Care Sketch Liner Name Role Phone Sherice John MD Primary Care Provider [phone] Allergies Active Allergy Reactions Criticality Noted Date [...] Continue diltiazem and mexiletine. Appreciate management from [facility] electrophysiology. Seasonal allergies 11/07/2022 Moderate persistent asthma [...] dose of Lasix and Jardiance. Pulmonary hypertension ([facility] V24, [facility] V28 ) 02/07/2019 Overview (06/13/2024): 11/22/18 CAIT: Mild Last Assessment & Plan: Exercise-induced pulmonary hypertension. She did not respond well to sildenafil. I would defer management of this issue to her head of history. Fortunately her dyspnea on exertion has been stable and is not significantly interfering with her quality of life. Mild persistent asthma 02/07/2019 GERD (gastroesophageal reflux disease) 9 Encounters Date Type Department Care Team Description 12/01/2024 1:30 PM EDT Office Visit [facility] [address] [facility] [address] [place] [address] Mikal Jones MD Chronic diastolic heart failure (CMS/HCC V24, CMS/[facility] V28) (Primary Dx); Dilated cardiomyopathy ([facility] V24, CMS/[facility] V28) from Last 3 Months Immunizations Name Administration [...] KNEE REPLACE KIDNEY STONE SURGERY 01/2017 PROCEDURE: MT NEPHROLITHOTOMY REMOVAL CALCULUS; COMMENT: Ureteroscopy/stone removal /stent [...] 03/25/2019 DX :Total knee replacement status; COMMENT: 2017 Left CAD (coronary artery disease) 03/25/2019 DX [...] Description 06/23/2025 10:40 AM EST Office Visit [facility] [address] [place] [address] Dante Ghotra NP [address] [place] [address] [address] [place] [address] Health Maintenance Due Date Last Done Comments [...] AM EST Performed at: ??01 - [facility] [address] ??[id number] [employer] Wireless Manager: Trudy Zamudio MD, Phone: ??[phone] us Reshma Valderrama IMMIGRATION LAWYER LAB BLOOD ORDERABLES Final R esult [facility] 1 from Last 3 Months or Most Recently Relevant to Health Maintenance Insurance MEDICARE [facility] Care Teams Sketch Liner Relationship Specialty Start Date End Date Sherice John MD [address] [place] [address] PCP - General Internal Medicine 01/10/19
--- OUTSIDE RECORDS SUMMARY | 2024-12-20 11:33 | XMS_ITS | Encounter Summary ---
Author Organization [employer] Address [address] [facility] 7t [place] [address] Care Team Providers Care Windows Server Specialist Name Role Phone Sherice John MD Primary Care Provider [phone] Encounter Details Date Type Department Care Team (Late st Contact Info) Description 05/14/2024 Orders Only [facility] [address] [place] [address] Sherice John MD [address] [place] [address] Social History Tobacco Use Types Packs/Day Years [...] Description 01/29/2025 10:00 AM EDT Office Visit [facility] MEDICAL [address] [place] [address] Sherice John MD 73 [place] [address] documented as of this encounter Procedures Procedure [...] on filedocumented in this encounter Care Teams Windows Server Specialist Relationship Specialty Start Date End Date Sherice John MD 73 [place] [address] PCP - General Internal Medicine 08/08/22 documented as of this encounter
--- OUTSIDE RECORDS SUMMARY | 2024-12-20 11:33 | XMS_ITS | Encounter Summary ---
Author Organization [employer] Address [address] [facility] 7t [place] [address] Care Team Providers Care Party Plan Salesperson Name Role Phone Sherice John MD Primary Care Provider [phone] Encounter Details Date Type Department Care Team (Late st Contact Info) Description 01/07/2024 Orders Only [facility] [address] [place] [address] Sherice John MD [address] [place] [address] Social History Tobacco Use Types Packs/Day Years [...] Description 01/29/2025 10:00 AM EDT Office Visit [facility] MEDICAL [address] [place] [address] Sherice John MD [address] [place] [address] documented as of this encounter Procedures Procedure [...] on filedocumented in this encounter Care Teams Party Plan Salesperson Relationship Specialty Start Date End Date Sherice John MD [address] [place] [address] PCP - General Internal Medicine 08/08/22 documented as of this encounter
--- OUTSIDE RECORDS SUMMARY | 2024-12-20 11:33 | XMS_ITS | Encounter Summary ---
Author Organization [facility] Address [address] [place] [address] Care Team Providers Care Art Objects Repairer Name Role Phone Sherice John MD Primary Care Provider Unavailab Mikal Rodriguez MD Unavailable Dante Ghotra NP Unavailable [phone] Marvin Pritchett MD Unavailable [phone] Shahnaz Sanchez PA-C Unavailable Encounter Details Date Type Department Care Team Description 04/09/2019 [facility] [address] [place] [address] Ben Del Rio MD Social History Tobacco Use Types Packs/Day [...] Name Priority Date/Time Associated Diagnosis Comments OUTSIDE CARDIAC CATH Routine 04/09/2019 documented in this encounter Results * OUTSIDE CARDIAC CATH (04/09/2019) Provider Abstract CARDIOLOGY documented in this encounter Visit Diagnoses Not on filedocumented in this encounter Care Teams Art Objects Repairer Relationship Specialty Start Date End Date Sherice John MD PCP - General Internal Medicine 01/10/19 Mikal Jones MD 300 [facility] [address] [place] [address] Pairer Cardiology 08/06/20 Dante Ghotra NP 300 [facility] [address] [place] [address] Nurse Practitioner Cardiology 03/21/22 Marvin Pritchett MD 300 [facility] [address] [place] [address] Pairer Cardiology 04/21/22 Shahnaz Sanchez PA-C 300 [facility] [address] [place] [address] Pairer Cardiology 04/21/22 documented as of this encounter
--- OUTSIDE RECORDS SUMMARY | 2024-12-20 11:33 | XMS_ITS | Encounter Summary ---
Author Organization [facility] Address [address] [place] [address] Care Team Providers Care Sole Stainer Name Role Phone Sherice John MD Primary Care Provider Unavailab Mikal Rodriguez MD Unavailable Dante Ghotra NP Unavailable [phone] Marvin Pritchett MD Unavailable [phone] Shahnaz Sanchez PA-C Unavailable Encounter Details Date Type Department Care Team Description 01/26/2023 [facility] [address] [place] [address] [facility] Social History Tobacco Use Types Packs/Day Years [...] on filedocumented in this encounter Care Teams Sole Stainer Relationship Specialty Start Date End Date Sherice John MD PCP - General Internal Medicine 01/10/19 Mikal Jones MD [address] [place] [address] [address] [place] [address] Campus Recruiter Cardiology 08/06/20 Dante Ghotra NP [address] [address] Nurse Practitioner Cardiology 03/21/22 Marvin Pritchett MD [address] [address] Campus Recruiter Cardiology 04/21/22 Shahnaz Sanchez PA-C [address] [address] Campus Recruiter Cardiology 04/21/22 documented as of this encounter
--- OUTSIDE RECORDS SUMMARY | 2024-12-20 11:33 | XMS_ITS | Encounter Summary ---
Author Organization [facility] Address [address] [place] [address] Care Team Providers Care Concaving Machine Operator Name Role Phone Sherice John MD Primary Care Provider Unavailab Mikal Rodriguez MD Unavailable Dante Ghotra NP Unavailable [phone] Marvin Pritchett MD Unavailable [phone] Shahnaz Sanchez PA-C Unavailable Encounter Details Date Type Department Care Team Description 03/01/2023 [facility] Records [address] [place] [address] [facility] Social History Tobacco Use Types Packs/Day Years [...] on filedocumented in this encounter Care Teams Concaving Machine Operator Relationship Specialty Start Date End Date Sherice John MD PCP - General Internal Medicine 01/10/19 Mikal Jones MD 300 [facility] [address] [place] [address] Water Taxi Captain Cardiology 08/06/20 Dante Ghotra NP 300 [facility] [address] [place] [address] Nurse Practitioner Cardiology 03/21/22 Marvin Pritchett MD 300 [facility] [address] [place] [address] Water Taxi Captain Cardiology 04/21/22 Shahnaz Sanchez PA-C 300 [facility] [address] [place] [address] Water Taxi Captain Cardiology 04/21/22 documented as of this encounter
--- OUTSIDE RECORDS SUMMARY | 2024-12-20 11:33 | XMS_ITS | Encounter Summary ---
Author Organization [facility] Address [address] [place] [address] Care Team Providers Care Fire Technician Name Role Phone Sherice John MD Primary Care Provider Unavailab Mikal Rodriguez MD Unavailable Dante Ghotra NP Unavailable [phone] Marvin Pritchett MD Unavailable [phone] Shahnaz Sanchez PA-C Unavailable Encounter Details Date Type Department Care Team Description 02/21/2023 [facility] Medical Records [address] [place] [id number] [place] [address] Social History Tobacco Use Types Packs/Day Years [...] on filedocumented in this encounter Care Teams Fire Technician Relationship Specialty Start Date End Date Sherice John MD PCP - General Internal Medicine 01/10/19 Mikal Jones MD 300 [facility] [address] [place] [address] Etl Lead Cardiology 08/06/20 Dante Ghotra NP [address] [address] Nurse Practitioner Cardiology 03/21/22 Marvin Pritchett MD [address] [place] [address] Etl Lead Cardiology 04/21/22 Shahnaz Sanchez PA-C [address] [address] Etl Lead Cardiology 04/21/22 documented as of this encounter
--- OUTSIDE RECORDS SUMMARY | 2024-12-20 11:33 | XMS_ITS | Encounter Summary ---
Author Organization [employer] Address 75 [facility] 7t [place] [address] Care Team Providers Care Visual And Stock Associate Name Role Phone Sherice John MD Primary Care Provider [phone] Encounter Details Date Type Department Care Team (Late st Contact Info) Description 08/25/2023 Orders Only [facility] [address] [place] [address] Sherice John MD 73 [place] [address] Social History Tobacco Use Types Packs/Day Years [...] AM EDT Office Visit [facility] MEDICAL [address] [place] [address] Sherice John MD 73 [place] [address] documented as of this encounter Procedures Procedure Name Priority Date/Time Associated Diagnosis Comments XR CHEST 2 VIEWS Routine 08/17/2023 documented in this encounter Results * XR Chest 2 Views (08/17/2023) Anatomical Region Laterality Modality Chest Radiographic Tami ging Sherice John MD IMG XR PROCEDURES Edited Result - Final documented in this encounter Visit Diagnoses Not on filedocumented in this encounter Care Teams Visual And Stock Associate Relationship Specialty Start Date End Date Sherice John MD [address] [place] [address] PCP - General Internal Medicine 08/08/22 documented as of this encounter
--- OUTSIDE RECORDS SUMMARY | 2024-12-20 11:33 | XMS_ITS | Encounter Summary ---
Author Organization [facility] Address [address] [place] [address] Care Team Providers Care Clip Loading Machine Adjuster Name Role Phone Sherice John MD Primary Care Provider Unavailab Mikal Rodriguez MD Unavailable Dante Ghotra NP Unavailable Marvin Pritchett MD Unavailable Shahnaz Sanchez PA-C Unavailable Reason for Visit * Reason Onset Date Comments medication problems 02/11/2019 Encounter Details Date Type Department Care Team Description 02/11/2019 Telephone [facility]ology - [place] [address] [facility] [address] [place] [address] Monae Reece MD [address] [place] [address] medication problems Social History Tobacco [...] Please call her about this.Please call her [phone]. documented in this encounter Plan of Treatment Not on file documented as of this encounter Visit Diagnoses Not on filedocumented in this encounter Care Teams Clip Loading Machine Adjuster Relationship Specialty Start Date End Date Sherice John MD PCP - General Internal Medicine 01/10/19 Mikal Jones MD 300 [facility] [address] [place] [address] Die Technician Cardiology 08/06/20 Dante Ghotra NP 300 [facility] 154 [place] [address] Nurse Practitioner Cardiology 03/21/22 Marvin Pritchett MD 300 [facility] [address] [place] [address] Die Technician Cardiology 04/21/22 Shahnaz Sanchez PA-C 300 [facility] [address] [place] [address] Die Technician Cardiology 04/21/22 documented as of this encounter
--- OUTSIDE RECORDS SUMMARY | 2024-12-20 11:33 | XMS_ITS | Encounter Summary ---
Author Organization [facility] Address [address] [place] [address] Care Team Providers Care Liquid Center Assembler Name Role Phone Sherice John MD Primary Care Provider Unavailab Mikal Rodriguez MD Unavailable Dante Ghotra NP Unavailable [phone] Marvin Pritchett MD Unavailable [phone] Shahnaz Sanchez PA-C Unavailable Encounter Details Date Type Department Care Team Description 05/01/2022 Pt. Non Urgent Medical Question Cardio PVC [facility] [address] [facility] [address] [place] [address] Dante Ghotra NP [address] [place] [id number] Social History Tobacco Use Types Packs/Day Years [...] on filedocumented in this encounter Care Teams Liquid Center Assembler Relationship Specialty Start Date End Date Sherice John MD PCP - General Internal Medicine 01/10/19 Mikal Jones MD 300 [facility] 154 [place] [address] Slip Dumper Cardiology 08/06/20 Dante Ghotra NP 300 [facility] [address] [place] [address] Nurse Practitioner Cardiology 03/21/22 Marvin Pritchett MD [address] [address] Slip Dumper Cardiology 04/21/22 Shahnaz Sanchez PA-C [address] [address] Slip Dumper Cardiology 04/21/22 documented as of this encounter
--- OUTSIDE RECORDS SUMMARY | 2024-12-20 11:33 | XMS_ITS | Encounter Summary ---
Author Organization [employer] Address 75 [facility] 7t [place] [address] Care Team Providers Care Head Holder Name Role Phone Pauline John MD Primary Care Provider [phone] Reason for Visit * Reason Onset Date Comments Medication Problem 05/25/2023 Encounter Details Date Type Department Care Team (Late st Contact Info) Description 05/25/2023 Telephone [facility] MEDICAL [address] [place] [address] Pauline John MD [address] [place] [address] Medication Problem Social History Tobacco Use Types [...] 11:50 AM EDT Had a apt with OR on Sunday she was due to change medication she is taking not seeing any prescriptions in file. documented in this encounter Plan of Treatment Upcoming Encounters Date Type Department Care Team (Late st Contact Info) Description 01/29/2025 10:00 AM EDT Office Visit [facility] MEDICAL [address] [place] [address] Pauline John MD [address] [place] [address] documented as of this encounter Visit Diagnoses Not on filedocumented in this encounter Care Teams Head Holder Relationship Specialty Start Date End Date Pauline John MD [address] [place] [address] PCP - General Internal Medicine 08/08/22 documented as of this encounter
--- OUTSIDE RECORDS SUMMARY | 2024-12-20 11:33 | XMS_ITS | Clinical Summary ---
Author Organization [employer] Address [address] [facility] 7t [place] [address] Care Team Providers Care Humidifier Operator Name Role Phone Sherice John MD Primary Care Provider [phone] Allergies Active Allergy Reactions Criticality Noted Date [...] 2 PUFFS IN THE MORNING 4 each 2024 Active gabapentin (Neurontin) 400 MG capsuleIndicati [...] MOUTH ONCE A DAY 180 tablet 1 Active raNITIdine HCl (RANITIDINE 75 PO) Take 150 mg by mouth. Active empagliflozin (Jardiance) 10 MG Take 10 mg by mouth in the morning. Active Eliquis 5 MG tablet TAKE 1 TABLET BY MOUTH TWICE A DAY 180 tablet 3 Active cyclobenzaprine (Flexeril) 10 MG tabletIndicatio ns:Acute bilateral low back pain without sciatica Take 1 tablet (10 mg) by mouth if needed in the morning, at noon, and at bedtime for muscle spasms. 30 tablet 025 2024 Active denosumab (Prolia) 60 MG/ML solution prefilled syringeIndicati ons:Age-related osteoporosis with current pathological fracture with delayed healing, subsequent encounter Inject 1 mL (60 mg) under the skin 1 (one) time for 1 dose. 1 mL Active traMADol (Ultram) 50 MG tabletIndicatio ns:Acute midline low back pain without sciatica Take 1 tablet (50 mg) by mouth every 6 (six) hours if needed for moderate pain for up to 5 days. 20 tablet 025 2024 Active Eliquis 5 MG tablet TAKE 1 TABLET BY MOUTH TWICE A DAY 180 tablet 3 024 2024 Discontinued cyclobenzaprine (Flexeril) 10 MG tabletIndicatio ns:Acute bilateral low back pain without sciatica Take 1 tablet (10 mg) by mouth if needed in the morning, at noon, and at bedtime for muscle spasms. 30 tablet 025 2024 Discontinued(R eorder (will not trigger notification to Pharmacy)) traMADol (Ultram) 50 MG tabletIndicatio ns:Acute midline low back pain without sciatica Take 1 tablet (50 mg) by mouth every 6 (six) hours if needed for moderate pain for up to 5 days. 20 tablet 025 2024 Discontinued(R eorder (will not trigger notification to Pharmacy)) denosumab (Prolia) 60 MG/ML solution prefilled syringeIndicati ons:Age-related osteoporosis with current pathological fracture with delayed healing, subsequent encounter Inject 1 mL (60 mg) under the skin 1 (one) time for 1 dose. 1 mL 025 2024 Discontinued(R eorder (will not trigger notification to Pharmacy)) Active [...] patient to press all around the area. is tender but not currently painful. Is on a higher dose of lasix per direction of her pulm just for the next 3 days, (60 mg daily for 3 days) and then is to recheck with pulm if no improvement in her feet feeling a bit tight in her shoes. just took the first higher dose (usually [...] will f/up with both her pulm and replanting machine crew , continue daily weights and report if greater than 2 lb wt gain day to day or 5 lbs in one week. Self monitor closely for any new open wounds or bleeding as she is taking Eliquis 5 mg PO BID d/t hx PE and pulm HTN, ?cardiomyopathy, ? CHF. Recommended schedule her pulm and replanting machine crew followup visits soon and agrees to do [...] EDT): Encouraged to keep current with her financial solutions advisor and replanting machine crew given her multple complex pulm and cardio health diagnoses and history. Savannah's bp somewhat elevated and will self monitor bp/pulse and 02 sat daily and make/keep PCP, pulm and replanting machine crew followup visits and agrees to consult with reg teletype clerk for dietary advice to help with her chronic health concerns as well as weight reduction. Agrees to keep and bring a daily dietary intake log to that RD consult. Assessment & Plan (07/24/2022 10:23 AM EST): Stable on meds High cholesterol 07/11/2022 Assessment & Plan (07/24/2022 10:25 AM EST): Labs ordered Recurrent sinusitis 07/11/2022 GERD (gastroesophageal reflux disease) 2 Moderate persistent asthma without complication 07/11/2022 Migraine [...] on the results of her echocardiogram from [facility] and discussed with her if there are actionable findings. I did encourage her to follow-up with her new financial solutions advisor to determine if there are further investigations or treatment warranted for pulmonary hypertension. 11/22/18 CAIT: Mild Assessment & Plan (06/25/2024 8:30 PM EST): Followed by cardiology and also pulm HTN specialist in [place] Dr. Tangela Deleon. See HPI, encouraged to f/up both with her replanting machine crew who is prescribing her torsemide and with [...] Encounters Date Type Department Care Team Description 12/18/[address] [address] Sherice John MD Age-related osteoporosis with current pathological fracture with delayed healing, subsequent encounter 12/18/[address] [address] Sherice John MD Acute midline low back pain without sciatica 12/15/2024 3:40 PM EDT Telemedicine [address] [address] Sherice John MD Acute bilateral low back pain without sciatica (Primary Dx); Age-related osteoporosis with current pathological fracture with delayed healing, subsequent encounter 12/13/[address] [address] Sherice John MD Medication Question 12/12/2024 Travel 12/02/[address] [address] Sherice John MD 11/24/2024 2:20 PM EDT Telemedicine [address] [address] Sherice John MD Acute bilateral low back pain without sciatica (Primary Dx) 11/24/2024 Travel 11/17/[address] [address] Sherice John MD Back Pain 11/03/2024 10:00 AM EDT Telemedicine [address] [address] Sherice John MD Syncope, unspecified syncope type (Primary Dx) 11/02/2024 Travel 09/23/2024 12:00 PM EST Office Visit [facility] MED[facility] [address] [place] [address] Sherice John MD Syncope, unspecified syncope type (Primary Dx); Pulmonary hypertension (CMS/HCC); Essential hypertension; Multiple subsegmental pulmonary emboli without acute cor pulmonale (CMS/HCC); Generalized anxiety disorder 09/23/2024 Orders Only [facility] [address] [place] [address] Sherice John MD 09/23/2024 Telephone [facility] [address] [place] [address] Sherice John MD Medical Records request from [...] Description 01/29/2025 10:00 AM EDT Office Visit [place] [facility] [address] [place] [address] Sherice John MD [address] [place] [address] Health Maintenance Due Date Last Done Comments [...] Maintenance Results * Referral to Cardiology (12/01/2024) Result Candace John MD OUTPATIENT REFERRAL ORDERABLES F inal Result * BONE DENSITY/DEXA (HIPS, PELVIS OR SPINE) (11/24/2024) Anatomical Region Laterality Modality L-spine N/A Radiographic Tami ging us Sherice John MD IMG DXA PROCEDURES Final Result * XR Lumbar Spine 2-3 Views (11/22/2024) Anatomical Region Laterality Modality Spine, L-spine Radiographic Tami ging us Sherice John MD IMG XR PROCEDURES Final Result * Vascular US carotid artery duplex bilateral (11/05/2024) us Sherice John MD CV VASCULAR PROCEDURES Final Res ult * MR Brain w/o Contrast (10/22/2024) Anatomical Region Laterality Modality Brain Magnetic Resonan ce Sherice John MD IMG MRI PROCEDURES Final Result * Hm Colonoscopy (05/06/2024 1:27 PM EDT) us Sherice John MD HEALTH MAINTENANCE Final Result * BI Mammogram Screening Tomosynthesis Bilateral (01/01/2024 2:48 PM EDT) Anatomical Region Laterality Modality Breast Bilateral Mammography Sherice KUOG BI PROCEDURES Final Result * Lipid panel (09/07/2022 12:08 PM EST) Cholesterol, Total 164 (<200) MG/DL [facility] Triglyceride (mg/dL) in Serum/Plasma 83 (<150) MG/DL [facility] HDL Cholesterol 75 (>39) MG/DL [facility] LDL Cholesterol, Calculated 72 (0-130) MG/DL [facility] Non HDL Chol. (LDL+VLDL) 89 (<160) MG/DL [facility] Comment: Testing performed or reported by [facility], a Service of [facility], [address] [place] [address] Lulu Masters MD, Drying Rack Changer [facility]# [id number] Blood Venous blood specimen / Unknown 09/07/2022 12:08 PM EST 09/07/2022 12:10 PM EST Result [facility] [place] [facility] Sherice John MD LAB BLOOD ORDERABLES Final Resul t [facility] [address] [place] [address] * Pap Smear (02/01/2016 12:00 AM EDT) Swab Result [facility] Kiersten Dick MD LAB CYTOLOGY ORDERABLES F inal Result * Hepatitis C Antibody (08/20/2011 3:22 PM EST) Hepatitis C Antibody Nonreactive Blood 08/20/2011 3:22 PM EST us Historical Provider POINT OF CARE TEST ENTER/ EDIT ORDERABLES Final Result from Last 3 Months or Most Recently Relevant to Health Maintenance Insurance [facility] Member Subscriber Plan / Payer ( fective 2022-Present) Name:Mary Delgado Member ID:[id number] Relation to Subscriber:Self Name:Mary Delgado Subscriber ID:[id number] Payer ID:[facility] Group ID:Not on file Type:Medicare Address: [facility] [address] [address] Care Teams Humidifier Operator Relationship Specialty Start Date End Date Sherice John MD [address] [place] [address] PCP - General Internal Medicine 08/08/22
--- OUTSIDE RECORDS SUMMARY | 2024-12-20 11:33 | XMS_ITS | Encounter Summary ---
Author Organization [employer] Address [address] [facility] 7t [place] [address] Care Team Providers Care Form Designer Name Role Phone Sherice John MD Primary Care Provider [phone] Encounter Details Date Type Department Care Team (Late st Contact Info) Description 12/19/2023 Orders Only [place] [address] [place] [address] Sherice John MD [address] [place] [address] Social History Tobacco Use Types Packs/Day Years [...] Description 01/29/2025 10:00 AM EDT Office Visit [facility] MED[facility] [address] [place] [address] Sherice John MD [address] [place] [address] documented as of this encounter Procedures Procedure [...] on filedocumented in this encounter Care Teams Form Designer Relationship Specialty Start Date End Date Sherice John MD [address] [place] [address] PCP - General Internal Medicine 08/08/22 documented as of this encounter
--- OUTSIDE RECORDS SUMMARY | 2024-12-20 11:33 | XMS_ITS | Clinical Summary ---
Author Organization [facility] Address [address] [place] [address] Care Team Providers Care Vamp Strap Ironer Name Role Phone Sherice John MD Primary Care Provider [phone] Allergies Active Allergy Reactions Criticality Noted Date [...] topic Insurance MEDICARE PART A & B [facility] Care Teams Vamp Strap Ironer Relationship Specialty Start Date End Date Sherice John MD [address] [place] [address] PCP - General 12/12/18
--- OUTSIDE RECORDS SUMMARY | 2024-12-20 11:33 | XMS_ITS | Encounter Summary ---
Author Organization [facility] Address [address] [place] [address] Care Team Providers Care Zigzag Elastic Attacher Name Role Phone Sherice John MD Primary Care Provider Unavailab Mikal Rodriguez MD Unavailable Dante Ghotra NP Unavailable Marvin Pritchett MD Unavailable [phone] Shahnaz Sanchez PA-C Unavailable Encounter Details Date Type Department Care Team Description 05/02/2022 Telephone Cardio PVCA Diag Testing 101 [address] [facility] [address] [place] [address] Dante Ghotra NP [address] [place] [address] [id number] Social History Tobacco Use Types Packs/Day Years [...] 05/01/2022 3:03 PM EDT To: [facility] Triage [facility] Subject: Metoprolol and Appointment [facility], Last week after seeing Dr Pritchett, I [...] on filedocumented in this encounter Care Teams Zigzag Elastic Attacher Relationship Specialty Start Date End Date Sherice John MD PCP - General Internal Medicine 01/10/19 Mikal Jones MD [address] [address] Bakery Supervisor Cardiology 08/06/20 Dante Ghotra NP [address] [address] Nurse Practitioner Cardiology 03/21/22 Marvin Pritchett MD [address] [place] [address] Bakery Supervisor Cardiology 04/21/22 Shahnaz Sanchez PA-C [address] [place] [address] Bakery Supervisor Cardiology 04/21/22 documented as of this encounter
--- OUTSIDE RECORDS SUMMARY | 2024-12-20 11:33 | XMS_ITS | Encounter Summary ---
Author Organization [employer] Address [address] [facility] 7t [place] [address] Care Team Providers Care X Ray Inspector Name Role Phone Sherice John MD Primary Care Provider [phone] Encounter Details Date Type Department Care Team (Late st Contact Info) Description 12/07/2023 Orders Only [place] [facility] [address] [place] [address] Sherice John MD [address] [place] [address] Social History Tobacco Use Types Packs/Day Years [...] 01/29/2025 10:00 AM EDT Office Visit [facility] MED[facility] [address] [place] [address] Sherice John MD [address] [place] [address] documented as of this encounter Procedures Procedure [...] on filedocumented in this encounter Care Teams X Ray Inspector Relationship Specialty Start Date End Date Sherice John MD [address] [place] [address] PCP - General Internal Medicine 08/08/22 documented as of this encounter
--- OUTSIDE RECORDS SUMMARY | 2024-12-20 11:33 | XMS_ITS | Encounter Summary ---
Author Organization [email or web address] Address [address] [facility] [address] 7[address] [place] [address] Care Team Providers Care Family Life Educator Name Role Phone Sherice John MD Primary Care Provider [phone] Encounter Details Date Type Department Care Team (Late st Contact Info) Description 01/16/2024 Orders Only [facility] MEDICAL [address] [place] [address] Provider, MD Kiersten Social History Tobacco Use [...] 01/29/2025 10:00 AM EDT Office Visit [facility] [address] [place] [address] Sherice John MD [address] [place] [address] documented as of this encounter Procedures Procedure Name Priority Date/Time Associated Diagnosis Comments TRANSTHORACIC ECHO (TTE) COMPLETE Routine 01/03/2024 4:27 AM EDT documented in this encounter Results * Transthoracic echo (TTE) complete (01/03/2024 4:27 AM EDT) us Historical Provider MD ZAMUDIO ECHO PROCEDURES Final Result documented in this encounter Visit Diagnoses Not on filedocumented in this encounter Care Teams Family Life Educator Relationship Specialty Start Date End Date Sherice John MD [address] [place] [address] PCP - General Internal Medicine 08/08/22 documented as of this encounter
--- OUTSIDE RECORDS SUMMARY | 2024-12-20 11:33 | XMS_ITS | Encounter Summary ---
Author Organization [facility] Address [address] [place] [address] Care Team Providers Care Engine Lathe Set Up Operator Name Role Phone Sherice John MD Primary Care Provider Unavailab Mikal Rodriguez MD Unavailable Dante Ghotra NP Unavailable [phone] Marvin Pritchett MD Unavailable [phone] Shahnaz Sanchez PA-C Unavailable Reason for Visit * Reason Onset Date Comments refill request 02/10/2019 Encounter Details Date Type Department Care Team Description 02/10/2019 Refill Pulmonology - [place] [address] [facility] [address] [place] [address] Monae Reece MD [address] [place] [address] refill request Social History Tobacco [...] / Plan[place] / Product Type: MEDICARE [id number] documented in this encounter Plan of Treatment Not on file documented as of this encounter Visit Diagnoses Not on filedocumented in this encounter Care Teams Engine Lathe Set Up Operator Relationship Specialty Start Date End Date Sherice John MD PCP - General Internal Medicine 01/10/19 Mikal Jones MD [address] [address] Data Power Consultant Cardiology 08/06/20 Dante Ghotra NP [address] [address] Nurse Practitioner Cardiology 03/21/22 Marvin Pritchett MD [address] [address] Data Power Consultant Cardiology 04/21/22 Shahnaz Sanchez PA-C [address] [address] Data Power Consultant Cardiology 04/21/22 documented as of this encounter
--- OUTSIDE RECORDS SUMMARY | 2024-12-20 11:33 | XMS_ITS | Encounter Summary ---
Author Organization [facility] Address [address] [place] [address] Care Team Providers Care Ruling Machine Feeder Name Role Phone Sherice John MD Primary Care Provider Unavailab Mikal Rodriguez MD Unavailable Dante Ghotra NP Unavailable [phone] Marvin Pritchett MD Unavailable [phone] Shahnaz Sanchez PA-C Unavailable Encounter Details Date Type Department Care Team Description 06/25/2019 Release of Information Medical Records [address] [place] [id number] Abstract, Provider Social History Tobacco Use Types [...] on filedocumented in this encounter Care Teams Ruling Machine Feeder Relationship Specialty Start Date End Date Sherice John MD PCP - General Internal Medicine 01/10/19 Mikal Jones MD [address] [address] Senior Environmental Engineer Cardiology 08/06/20 Dante Ghotra NP [address] [id number] Nurse Practitioner Cardiology 03/21/22 Marvin Pritchett MD 300 [facility] [address] [place] [address] Senior Environmental Engineer Cardiology 04/21/22 Shahnaz Sanchez PA-C [address] [place] [address] Senior Environmental Engineer Cardiology 04/21/22 documented as of this encounter
--- OUTSIDE RECORDS SUMMARY | 2024-12-20 11:33 | XMS_ITS | Data Portability ---
Author Organization [place] - [facility], Allergy Address [address] [address] Care Team Providers Care Fac Engineer Name Role Phone CARLOS CHILDERS Primary Care [...] eural hearing loss of bilatera l ears [id number] Active 2019 Sensorin eural hearing loss, bilatera l; Note: Date Diagnose d: 0 2:40 PM (H90.3) Not Available [facility] 4 02:45:12 Disorder of right Eustachi an tube [id number] 93096 Active 2019 Other specifie d disorder s of Eustachi an tube, right ear; Note: Date Diagnose d: 04/20/2020 4:01 PM (H69.81) Not Available [facility] 4 02:45:15 Impacted cerumen in right ear [id number] 01815 Active 2022 Impacted cerumen, right ear; Note: Date Diagnose d: 3 11:11 AM (H61.21) Not Available [facility] 4 02:45:12 Acute serous otitis media of right ear [id number] 72640 Completed 201903/21/2024 Acute serous otitis media, right ear; Note: Date Diagnose d: 0 2:34 PM (H65.01) Not Available [facility] 4 02:45:08 Posterio r rhinorrh ea 51411740 Active 2017 Postnasa l drip; Note: Date Diagnose d: 12/25/2017 2:12 PM (R09.82) Not Available [facility] 4 02:45:11 Allergic rhinitis 90523151 Active 2017 Allergic rhinitis , unspecif ied; Note: Date Diagnose d: 12/25/2017 2:12 PM (J30.9) Not Available [facility] 4 02:45:10 Cough 25627074 Active 2018 Cough; Note: Date Diagnose d: 09/24/2018 11:18 AM (R05) Not Available [facility] 4 02:45:09 Cough variant asthma 743685873 Active 2018 Cough variant asthma; Note: Date Diagnose d: 11/19/2018 11:34 AM (J45.991 ) Not Available [facility] 4 02:45:09 Impacted cerumen of bilatera l ears 62869230087 17192 Active 2018 Impacted cerumen, bilatera l; Note: Date Diagnose d: 09/24/2018 11:18 AM (H61.23) Not Available [facility] 4 02:45:10 Headache 89245476 Active 2017 Headache ; Note: Date Diagnose d: 12/25/2017 2:12 PM (R51) Not Available [facility] 4 02:45:09 Otalgia of right ear 4580576257 Active 2018 Otalgia, right ear; Note: Date Diagnose d: 09/24/2018 12:52 PM (H92.01) Not Available [facility] 4 02:45:14 Obstruct demarco sleep apnea syndrome 60529710 Active 2018 Obstruct demarco sleep apnea (adult) (pediatr ic); Note: Date Diagnose d: 9 11:20 AM (G47.33) Not Available [facility] 4 02:45:14 Itching of skin 385134849 Active 2023 Nata garcia [place] - [facility] 4 09:46:48 Problem Notes None recorded. Medical Equipment None Reported. Allergies Allergen ID Allergen Name Allergen Category Reaction Reaction Severity Criticality Documentation Date Start Date Code Code System Note Provider Name and Address Organization Details Recorded Time 79543 Substance with sulfonami de structure and antibacte rial mechanism of action (substanc e) medicatio n other Not available Not available 01/01/2024 99383 8003 SNOMED React ion: unkno wn, unspe cifie d;; Not Available [facility] 4 00:49:45 Medications Name Sig Start [...] mg tablet 02/02 completed Medicati on ID: [id number] D uration Value: 30 Brand Name: amlodipi [...] 5 mg tablet active Medicati on ID: 884387 B rand Name: bisoprol ol fumarate Send Method: E-Prescr ibed Sub s Allowed: subs OK Medic ationGen ericName : bisoprol ol fumarate Not Available Not Available Not Available alprazola m 0.5 mg tablet TAKE 1/2 TO 1 TABLET DAILY NEEDED FOR ANXIETY active Not Available Not Available No t Available gabapenti n 800 mg tablet 02/02 completed Medicati on ID: 959885 D uration Value: 30 Brand Name: gabapent in Send Method: E-Prescr ibed Sub s Allowed: subs OK Speci al Instruct ion: take 1 tablet by mouth at bedtime Medicati onGeneri cName: gabapent in Not Available Not Available Not Available meclizine 25 mg tablet 11/13 completed Medicati on ID: [id number] B rand Name: meclizin e Send Method: E-Prescr ibed Sub s Allowed: subs OK [facility] : meclizin e Not Available Not [...] mg tablet 02/02 completed Medicati on ID: [id number] D uration Value: 30 Brand Name: zolpidem [...] 24 hr 2020 active Medicati on ID: 449276 B rand Name: metoprol ol succinat e Send Method: E-Prescr ibed Sub s Allowed: subs OK Medic ationGen ericName : metoprol ol succinat e Not Available Not Available Not Available lotepredn ol etabonate 0.5 % eye drops,[facility] ADMINIST ER 1 DROP INTO BOTH EYES 4 TIMES DAILY FOR 14 DAYS. active Not Available Not Available No t Available zolpidem 10 mg tablet 2020 active Medicati on ID: 135919 B rand Name: zolpidem Send Method: E-Prescr ibed Sub s Allowed: subs OK Medic ationGen ericName : zolpidem Not Available Not Available Not Available fluticaso ne propionat e 50 mcg/actua tion nasal spray,[facility] pension 2020 active Medicati on ID: [id number] B rand Name: fluticas one propiona te [...] sustained -release 11/13 completed Medicati on ID: 386764 B rand Name: bupropio n HCl Send [...] aerosol inhaler 2020 active Medicati on ID: [id number] B rand Name: Flovent HFA Send Method: E-Prescr ibed Sub s Allowed: subs OK Medic ationGen ericName : Flovent HFA Not Available Not Available Not Available Flovent HFA 220 mcg/actua tion aerosol inhaler 11/13 completed Medicati on ID: 765987 B rand Name: Flovent HFA Send Method: [...] in dose pack active Medicati on ID: 927140 B rand Name: Eliquis DVT-PE Treat 30D [...] Updated DateTime 05/20/2024 162.56 cm 30 kg/m2 59029.66 g Ruperto Hull [place] - [facility] 05/20/2024 09:37:03 Social History None recorded. Functional Status None recorded. Mental Status None recorded. Family History Nothing Reported. Medical History No medical history recorded. Gynecological HistoryNo gynecological history recorded. Obstetrics History GPAL:G 0 P 0 0 0 0 Past Encounters Encounter ID Performer Location Encounter Start Date Encounter Closed Date Diagnosis/Indication Diagnosis SNOMED-CT Code Diagnosis ICD10 Code Diagnosis Note [id number] NATA GENAO PA-C [facility] [address] [address] 05/20/2024 09:25:09 05/20/2024 09:48:11 Itching of skin [id number] L29.9 Health Concerns Section Related Observation LastModified by Organization Detai ls LastModified Time None Recorded Concern Status LastModified by Organization Details LastModified Time None Recorded Advance Directives Directive None Recorded Payers Encounter Date Sequence Insurance Name Policy Number Policy Adan Covered Member ID Adan Member ID Guarantor Name 05/20/2024 1 MEDICARE B-MT: [facility] [employer] Mary Delgado [id number] Mary Delgado 05/20/2024 2 [employer] [facility] - UNICARE [id number] Mary Delgado [id number] Mary Delgado Notes Date Note Type Note Provider Name and Address Organization Details Recorded Time 05/20/2024 text/html 74 year old female presents today for an ear cleaning.No specific concerns today. She does have some itching at the ear canal opening. No drainage or pain. HAYDEN BEARDEN MD [address] [place] [address], [place], [address], [place] - [facility] 05/20/2024 10:12:08 OBGyn Episode No OBEpisode recorded.
--- OUTSIDE RECORDS SUMMARY | 2024-12-20 11:33 | XMS_ITS | Encounter Summary ---
Author Organization [facility] Address [address] [place] [address] Care Team Providers Care Print Traffic Manager Name Role Phone Sherice John MD Primary Care Provider Unavailab Mikal Rodriguez MD Unavailable Dante Ghotra NP Unavailable Marvin Pritchett MD Unavailable [phone] Shahnaz Sanchez PA-C Unavailable Reason for Visit * Reason Onset Date Comments Information Needed 02/11/2019 from cardiolo gist Encounter Details Date Type Department Care Team Description 02/11/2019 Telephone Pulmonology - [place] [address] [facility] [address] [place] [address] Monae Reece MD [address] [place] [address] Information Needed (from cement finishing supervisor) Social History Tobacco Use Types Packs/Day Years Used Date Smoking Tobacco: Never Smokeless Tobacco: Never Sex Assigned at Date Recorded Not on file Job Start Date Occupation Industry Not on file Not on file Not on file documented as of this encounter Miscellaneous Notes * Telephone Encounter - Stu Sampson - 02/11/2019 4:23 PM EDT Caller requesting call back from provider: Is the caller the patient? YES If caller is not the patient, what is the callers name? N/A Callers relationship to patient? N/A If person calling is not the patient themselves, is there a verbal release in FYI or permanent comments for this person: NO Reason for call back: is calling in to let you know about her appointment today with Cardiology. She just wants to let you know about the fact that the Admissions Supervisor is referring her to Dr. Villegas at [facility]. So you will not have to do so. Also the test that you were going to order Cardio Pulmo Exercise Testing, she is going to wait on this till after she sees Dr. Villegas per the cement finishing supervisor recommendation. Caller offered to speak with the nurse for assistance: NO Response: Patient offered to speak with nurse for assistance and patient agreed. Message forwarded to nurse. documented in this encounter Plan of Treatment Not on file documented as of this encounter Visit Diagnoses Not on filedocumented in this encounter Care Teams Print Traffic Manager Relationship Specialty Start Date End Date Sherice John MD PCP - General Internal Medicine 01/10/19 Mikal Jones MD [address] [address] Admissions Supervisor Cardiology 08/06/20 Dante Ghotra NP [address] [address] Nurse Practitioner Cardiology 03/21/22 Marvin Pritchett MD [address] [address] Admissions Supervisor Cardiology 04/21/22 Shahnaz Sanchez PA-C [address] [address] Admissions Supervisor Cardiology 04/21/22 documented as of this encounter
--- OUTSIDE RECORDS SUMMARY | 2024-12-20 11:33 | XMS_ITS | Encounter Summary ---
Author Organization [facility] Address [address] [place] [address] Care Team Providers Care Teaching Associate Name Role Phone Sherice John MD Primary Care Provider Unavailab Mikal Rodriguez MD Unavailable Dante Ghotra NP Unavailable [phone] Marvin Pritchett MD Unavailable [phone] Shahnaz Sanchez PA-C Unavailable Encounter Details Date Type Department Care Team Description 06/25/2019 Old Medical Records Medical Records [address] [place] [id number] Abstract, Provider Social History Tobacco Use Types [...] on filedocumented in this encounter Care Teams Teaching Associate Relationship Specialty Start Date End Date Sherice John MD PCP - General Internal Medicine 01/10/19 Mikal Jones MD [address] [address] Maternal Child Nurse Cardiology 08/06/20 Dante Ghotra NP [address] [phone] Nurse Practitioner Cardiology 03/21/22 Marvin Pritchett MD 300 [facility] [address] [place] [address] Maternal Child Nurse Cardiology 04/21/22 Shahnaz Sanchez PA-C [address] [place] [address] Maternal Child Nurse Cardiology 04/21/22 documented as of this encounter
--- OUTSIDE RECORDS SUMMARY | 2024-12-20 11:33 | XMS_ITS | Encounter Summary ---
Author Organization [facility] Address [address] [place] [address] Care Team Providers Care Liquid Sugar Fortifier Name Role Phone Sherice John MD Primary Care Provider Unavailab Mikal Rodriguez MD Unavailable Dante Ghotra NP Unavailable [phone] Marvin Pritchett MD Unavailable [phone] Shahnaz Sanchez PA-C Unavailable Encounter Details Date Type Department Care Team Description 08/25/2019 Release of Information Medical Records [address] [place] [id number] Abstract, Provider Social History Tobacco Use Types [...] filedocumented in this encounter Care Teams Liquid Sugar Fortifier Relationship Specialty Start Date End Date Sherice John MD PCP - General Internal Medicine 01/10/19 Mikal Jones MD [address] [address] Test Borer Cardiology 08/06/20 Dante Ghotra NP [address] [phone] Nurse Practitioner Cardiology 03/21/22 Marvin Pritchett MD [address] [address] Test Borer Cardiology 04/21/22 Shahnaz Sanchez PA-C [address] [place] [address] Test Borer Cardiology 04/21/22 documented as of this encounter
--- OUTSIDE RECORDS SUMMARY | 2024-12-20 11:33 | XMS_ITS | Encounter Summary ---
Author Organization [facility] [facility] [employer] Address [address] [place] [address] [address] [place] [address] Care Team Providers Care Compensation And Benefits Administrator Name Role Phone Sherice John MD Primary Care Provider [phone] Reason for Visit * Reason Onset Date Comments Rx needs clairification 04/22/2024 Gabapent in Rx needs clarification Encounter Details Date Type Department Care Team (Late st Contact Info) Description 04/22/[address] [facility] [address] [place] [address] Sherice John MD [address] [place] [address] Primary insomnia Social History Tobacco Use Types [...] the past 12 months, has t he [employer], [employer], oil or water [employer] threatened to shut off services in your [...] Office Visit [facility] [address] [place] [address] Sherice John MD [address] [place] [address] documented as of this encounter Visit Diagnoses Diagnosis Primary insomnia Persistent disorder of initiating or maintaining sleep documented in this encounter Care Teams Compensation And Benefits Administrator Relationship Specialty Start Date End Date Sherice John MD [address] [place] [address] PCP - General Internal Medicine 08/08/22 documented as of this encounter
--- OUTSIDE RECORDS SUMMARY | 2024-12-20 11:33 | XMS_ITS | Encounter Summary ---
Author Organization [employer] Address [address] [facility] [address] [place] [address] Care Team Providers Care Edge Grinder Machine Name Role Phone Sherice John MD Primary Care Provider [phone] Encounter Details Date Type Department Care Team (Late st Contact Info) Description 07/31/2023 Orders Only [place] [facility] [address] [place] [address] Sherice John MD [address] [place] [address] Social History Tobacco Use Types Packs/Day Years [...] Description 01/29/2025 10:00 AM EDT Office Visit [place] [facility] [address] [place] [address] Sherice John MD [address] [place] [address] documented as of this encounter Procedures Procedure Name Priority Date/Time Associated Diagnosis Comments TSH Routine 07/30/2023 documented in this encounter Results * TSH (07/30/2023) Blood Venous blood specimen / Unknown us Sherice John MD LAB BLOOD ORDERABLES Edited Resu lt - Final documented in this encounter Visit Diagnoses Not on filedocumented in this encounter Care Teams Edge Grinder Machine Relationship Specialty Start Date End Date Sherice John MD [address] [place] [address] PCP - General Internal Medicine 08/08/22 documented as of this encounter
--- OUTSIDE RECORDS SUMMARY | 2024-12-20 11:33 | XMS_ITS | Encounter Summary ---
Author Organization [employer] Address [address] [facility] 7[address] [place] [address] Care Team Providers Care Packaging Line Attendant Name Role Phone Sherice John MD Primary Care Provider Encounter Details Date Type Department Care Team (Late st Contact Info) Description 10/01/2023 Orders Only [place] [facility] [address] [place] [address] Sherice John MD [address] [place] [address] Social History Tobacco Use Types Packs/Day Years [...] 01/29/2025 10:00 AM EDT Office Visit [place] [facility] [address] [place] [address] Sherice John MD [address] [place] [address] documented as of this encounter Procedures Procedure Name Priority Date/Time Associated Diagnosis Comments CBC WITH AUTO DIFFERENTIAL Routine 10/01/2023 documented in this encounter Results * CBC auto differential (10/01/2023) Blood Venous blood specimen / Unknown us Sherice John MD LAB BLOOD ORDERABLES Edited Resu lt - Final documented in this encounter Visit Diagnoses Not on filedocumented in this encounter Care Teams Packaging Line Attendant Relationship Specialty Start Date End Date Sherice John MD [address] [place] [address] PCP - General Internal Medicine 08/08/22 documented as of this encounter
--- OUTSIDE RECORDS SUMMARY | 2024-12-20 11:33 | XMS_ITS | Data Portability ---
Author Organization DEVENDRA Kel Prescott Ilanjana [facility], [facility] Address [address] [place] [address] Care Team Providers Care Flask Fitter Name Role Phone PAULINE PAULINO Referring Provider [phone] PAULINE PAULINO Primary Care Provider Assessment Encounter Date Assessment Date Assessment LastModified by Organization Details LastModified Time 07/02/2024 07/02/2024 PROBLEM: Right Hip Endstage Osteoarthritis HISTORY: The patient is a 74-year-old female whom I know well from previous knee arthroplasty. She is generally satisfied with the outcome of that surgical procedure. Patient notes increasing pain in her right hip. She had intra-articular injection performed on 02/18/2024 with modest benefit. She only got about a month of relief from the injection. She uses a cane for long walks. She is having difficulty donning and doffing shoes. Difficulty climbing and descending stairs. She notes increasing impact on her ability of form living. Patient does home exercise program. She is on Eliquis and cannot take anti-inflammatory medications. She has taken Tylenol. The patient's hip symptom profile form was reviewed and included in the record. The patient remains symptomatic and has had unsuccessful history of appropriate conservative therapy (non-surgical medical management). Non surgical medical management has been implemented for 3 months or more to assess effectiveness. Conservative treatment as clinically appropriate for the patient? s current episode of care including, but not limited to, one or more of the following: anti-inflammatory medications, analgesics, flexibility and muscle strengthening exercises, supervised physical therapy (Activities of daily living (ADLs) diminished despite completing a plan of care), activity restrictions as is reasonable, assistive device use, weight reduction as appropriate, and therapeutic injections into the joint as appropriate PFMSH and ROS have been reviewed, updated, and is located in the patient? s chart. PAST MEDICAL HISTORY: Past medical history is significant for palpitations, hypercholesteremi a, asthma, pneumonia, bronchitis, shortness of breath, hypertension, easy bleeding, diverticulitis, acid reflux, anxiety, depression, osteoporosis, blood clots, neck pain, back pain PAST SURGICAL HISTORY: Past surgical history includes bilateral total knee and kidney stones MEDICATIONS: List is available for review in the chart . ALLERGIES: Patient reports an allergy to sulfa and Dilaudid. Does not report an allergy to metal, latex, Iodine, tape, or adhesives. SOCIAL HISTORY: The patient is retired. She does not consume tobacco or illegal drugs. She consumes 3-4 alcoholic beverages per week. She last with dentist in June. She has stairs and lives alone. PHYSICAL EXAMINATION: Please see vitals recorded below Mental status: Alert and lucid. Normal insight, affect, and grooming. AIRPORT OPERATIONS SPECIALIST: Gross motor coordination is intact. No spasticity or clonus noted. Extremities: Calves are soft and non-tender. Skin intact. Palpable pedal pulses equal bilaterally. Peripheral vascular, lymphatic examination, skin, neurological coordination, reflexes, sensation are within normal limits. ORTHOPEDIC EXAMINATION: Negative SLR tests bilaterally. Full ROM of both knees without pain. Patient ambulates with a visible Trendelenburg gait. She said flexion about 95 degrees. She is in degrees of internal/external rotation of her hip. She has minimal lateral tenderness. IMAGING: X-rays ordered, obtained, and reviewed today on [facility] PACS: AP pelvis, Marking AP of the Right hip, and Direct Lateral of the Right Hip. Demonstrate end-stage osteoarthritis of the Right hip with bone on bone articulation. Subchondral sclerosis and osteophyte formation are visible. There is no significant dysplasia.this is largely a concentric pattern of osteoarthritis IMPRESSION: Right hip end-stage osteoarthritis PLAN: I reviewed with the patient surgical and nonsurgical means to control symptoms. At this point the patient would like to proceed with total hip arthroplasty. We discussed the of the recovery period compared to her total knees. The patient understands that they are at potential increased risk of delayed recovery and incomplete pain relief. The patient has exhausted all conservative treatment, therapy and measures. The patient was thoroughly counseled today regarding their hip condition, its natural history and the options, both operative and non-operative. The nature of hip replacement surgery, the potential risks, benefits, and complications, the magnitude of the surgery, the intensity of postoperative recovery as well as its elective nature was explained at length today. Issues regarding lifelong dislocation, infection, and activity precautions were reviewed. The longevity of the implants was discussed. The pros and cons of the different bearing surfaces were explained. The patient understands the potential need for revision surgery within the next 15 years. The patient also understands the potential complexity of a revision situation as well. A copy of my hip replacement information packet was given. The patient will require clearance from a medical doctor prior to surgery. The patient wishes to schedule an elective total hip replacement at this time. They were educated about the goal of discharge home from the hospital and given a prescription for pre-hab physical therapy. Next planned follow-up is at the history and physical. The patient knows I will be happy to meet with them again at any time in order to review any additional questions or concerns that they might have. Patient was satisfied with this plan. I attempted to answer all of the patient's questions. [employer] MXR speech recognition environmental maintenance worker software was used to create portions of this document. An attempt at proofreading has been made to minimize errors. Please call for corrections. Not available 07/02/2024 12:38:55 11/20/2024 11/20/2024 Assessment: Patient presents with symptoms that are consistent with hip OA. Demonstrates good understanding of home program, post-operative mechanics for gait and stairs, hip kit, and expectations following surgery. ? Plan: Discharge patient to hip OA friendly [facility]. Follow up with patient post-operatively. [email or web address] Not available 11/20/2024 07:41:25 Plan of Treatment Reminders Order Date Submit Date Provider Last Modified By Organization Details Last Modified Time Details Appointments RECHECK 15 2024 01:00P Hilton BAL PA-C Not available Not available Not available Lab None recorded. Referral physical therapist referral - Evaluate & RxLumbar Stabiliza tion Program/c ore 2024 025 [email or web address] [facility], [address] [facility], [place], [address], 12/12/2024 13:16:23 Procedures None recorded. Surgeries None recorded. Imaging XR, hip + pelvis, unilatera l, 2 or 3 view - 206, 3 views of right hip[address] Dr. Reyes's protocol. 2023 024 [facility], [address], [address], [place], [address], 07/28/2024 13:29:02 Medication Orders None recorded. Patient TargetsNo targets recorded. Patient InstructionsNo instructions recorded. Reason for Referral Physical Therapist Referral for Low back strain Evaluate & RxLumbar Stabilization Program/core Referring Physician: Yamile Bal, Orthopedic Surgery, Encounter Date: 12/02/2024 Results Created Date Observation Date Name Description Value Unit Range Abnormal Flag Note LastModifiedBy Organization Detail LastModifiedTime 04/18/20 24 12/12/2018 imagi ng/di agnos tic resul t No observ ation record ed. [email or web address] Not Available 03/22 21:51:11 04/18/20 24 12/12/2018 imagi ng/di agnos tic resul t No observ ation record ed. [email or web address] Not Available 03/22 21:51:12 07/02/20 24 07/02/2024 XR, hip + pelvi s, unila teral , 2 or 3 view http:/ [email or web address] ?Encry pted=s hAaTro YD8dLq bEUv6g %2BXZw aYqtaq 0bqfl% 2Fg9IQ a4ajBk vP9nXo QUaueC m3YtLR FvZlgJ JJ8mAn HZtai3 9d2733 AC0Kqa HSGVqq lKiQtr MwF INTERFACE [facility] [address], [place], [address], 07/02/2024 10:41:24 07/02/20 24 07/02/2024 XR, hip + pelvi s, unila teral , 2 or 3 view http:/ [email or web address] ?Encry pted=s hAaTro YD8dLq bEUv6g %2BXZw aYqtaq 0bqfl% 2Fg9IQ a4ajBk vP9nXo QUaueC m3YtLR FvZlgJ JJ8mAn HZtai3 [id number] AC0Kqa HSGVqq lKiQtr MwF INTERFACE [facility] [address], [place], [address], 07/02/2024 10:41:26 11/29/19 25 11/22/2024 imagi ng inter preta tion No observ ation record ed. orad [address], [place], [address], 12/08/2024 09:57:00 Result Notes None recorded. Problems Name Problem SNOMED Code Status Onset Date Resolution Date Notes Provider Name and Address Organization Details Recorded Time Osteoarth ritis of right hip joint 134354142387 107 Active 2023 Tyler Reyes MD [address] [facility] [address], [place], [address] , [facility] 4 19:17:41 Pain of right knee joint 401534633260 100 Active 2017 Problem Code: M25.561; Problem Code Type: ICD-10; Status: 'A'; Not Available [facility] 4 10:57:03 Pre-surge ry evaluatio n Active 2017 Problem Code: Z01.818; Problem Code Type: ICD-10; Status: 'A'; Not Available [facility] 4 10:57:03 Tear of medial meniscus of knee 140828873 Active 2017 Problem Code: S83.232A ; Problem Code Type: ICD-10; Status: 'A'; Not Available [facility] 4 10:57:03 Pain of left knee joint 632207049805 107 Active 2017 Problem Code: M25.562; Problem Code Type: ICD-10; Status: 'A'; Not Available [facility] 4 10:57:03 Idiopathi c osteoarth ritis 863920179 Active 2017 Problem Code: M17.12; Problem Code Type: ICD-10; Status: 'A'; Not Available [facility] 4 10:57:03 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 4 13:43:19 Problem Notes None recorded. Procedures Surgical History Date Name Laterality Status Provider Name and Address Organization Details Recorded Time 5 71882 Therapeutic Exercise (1:1) completed Sophia [place], PT [address], [place], [address], [facility] 11/20/2024 14:49:40 5 00457: Low complexity PT Eval completed Sophia Andree, PT [address], [place], [address], [facility] 11/20/2024 07:41:39 5 G8419 BMI Outside Normal Parameters, F/U not Documented completed Sophia [place], PT [address], [place], [address], [facility] 11/20/2024 07:41:20 5 G8427 Current Medication Documented completed Sophia Andree, PT [address], [place], [address], [facility] 11/20/2024 14:49:41 4 JZHip completed Viviane Alonso PA-C [address], [place], [address], [facility] 02/18/2024 10:13:07 8 Knee Surgery completed KAYLIA L'HEUREUX [facility] 01/04/2024 08:47:20 Other completed KAYLIA L'HEUREUX [facility] 01/04/2024 08:47:20 Imaging Results Imaging Date Name Status LastModified by Organization Details LastModified Time 12/12/2018 imaging/diagnostic result completed Information not available 04/18/2024 21:51:11 12/12/2018 imaging/diagnostic result completed Information not available 04/18/2024 21:51:12 07/02/2024 XR, hip + pelvis, unilateral, 2 or 3 view completed INTERFACE [facility] [address], [place], [address], 07/02/2024 10:41:24 07/02/2024 XR, hip + pelvis, unilateral, 2 or 3 view completed INTERFACE [facility] [address], [place], [address], 07/02/2024 10:41:26 11/22/2024 imaging interpretation completed [address], [address], 12/08/2024 09:57:00 Procedure Notes None recorded. Medical Equipment None Reported. Allergies Allergen ID Allergen Name Allergen Category Reaction Reaction Severity Criticality Documentation Date Start Date Code Code System Note Provider Name and Address Organization Details Recorded Time 114119 Dilaudid medicatio n Not available Not available Not available 01/04/20242017 60893 3 RxNorm SELENA garcia [place] - [facility] 4 08:47:17 22429 Substance with sulfonami de structure and antibacte rial mechanism of action (substanc e) medicatio n Not available Not available Not available 10/22/20232014 38862 8003 SNOMED Not Available [facility] 10:54:02 Medications Name Sig Start Date Stop Date Status Note LastModified by Organization Details LastModified Time cyclobenzap rine 10 mg tablet TAKE 1 TABLET (10 MG) BY MOUTH NEEDED IN THE MORNING , AT NOON, AND AT BEDTIME FOR MUSCLE SPASMS 12/02 completed Not Available Not Available Not Available furosemide 40 mg tablet TAKE 1 TABLET BY MOUTH 1 TIME EACH DAY. 12/02 completed Not Available Not Available Not Available doxycycline hyclate 100 mg capsule TAKE 1 CAPSULE (100 MG) ORALLY 2 TIMES A DAY FOR 10 DAYS 01/02 completed Not Available Not Available Not Available torsemide 20 mg tablet TAKE 2 TABLETS BY MOUTH EVERY DAY (=40MG) 12/02 completed Not Available Not Available Not Available trazodone 50 mg tablet TAKE 1 TABLET ORALLY BEDTIME NEEDED FOR SLEEP FOR 30 DAYS active Not Available Not Available No t Available benzonatate 200 mg capsule TAKE 1 CAPSULE BY MOUTH TWICE A DAY NEEDED COUGH 07/02 completed Not Available Not Available Not Available lisinopril 20 mg tablet TAKE 1 TABLET BY MOUTH EVERY DAY active Not Available Not Available No t Available gabapentin 400 mg capsule TAKE 3 CAPSULES (1,200 MG) BY MOUTH AT BEDTIME. active Not Available Not Available No t Available sertraline 100 mg tablet TAKE 1 TABLET DAILY active Not Available Not Available No t Available bisoprolol fumarate 10 mg tablet TAKE 1 TABLET BY MOUTH EVERY DAY 01/02 completed Not Available Not Available Not Available alprazolam 0.5 mg tablet TAKE 1/2 TO 1 TABLET BY MOUTH DAILY NEEDED FOR ANXIETY active Not Available Not Available No t Available mexiletine 150 mg capsule TAKE 1 CAPSULE BY MOUTH TWICE A DAY active Not Available Not Available No t Available cephalexin 500 mg capsule TAKE 1 CAPSULE BY MOUTH 4 TIMES DAILY FOR 7 DAYS. 07/02 completed Not Available Not Available Not Available lansoprazol e 30 mg capsule,del ayed release TAKE 1 CAPSULE BY MOUTH TWICE A DAY BEFORE A MEAL active Not Available Not Available No t Available metronidazo le 0.75 % topical cream APPLY TO FACE IN THE MORNING 12/02 completed Not Available Not Available Not Available diltiazem CD 120 mg capsule,ext ended release 24 hr TAKE 1 CAPSULE BY MOUTH EVERY DAY active Not Available Not Available No t Available montelukast 10 mg tablet 01/02 completed Not Available Not Available Not Available furosemide 20 mg tablet active Not Available Not Available Not Available loteprednol etabonate 0.5 % eye drops,suspe nsion ADMINISTE R 1 DROP INTO BOTH EYES 4 TIMES DAILY FOR 14 DAYS. 01/02 completed Not Available Not Available Not Available methylpredn isolone 4 mg tablets in a dose pack TAKE 6 TABLETS ON DAY 1 DIRECTED ON PACKAGE AND DECREASE BY 1 TAB EACH DAY FOR A TOTAL OF 6 DAYS 01/02 completed Not Available Not Available Not Available fluticasone propionate 50 mcg/actuati on nasal spray,suspe nsion 2 SPRAY INTRANASA LLY DAILY FOR 30 DAYS active Not Available Not Available No t Available sertraline 50 mg tablet TAKE 1 TABLET BY MOUTH ONCE DAILY WITH 100 MG TABLET active Not Available Not Available No t Available amoxicillin 875 mg-ana m clavulanate 125 mg tablet TAKE 1 TABLET BY MOUTH TWICE A DAY FOR 10 DAYS 07/02 completed Not Available Not Available Not Available azithromyci n 500 mg tablet TAKE 1 TABLET ORALLY DAILY FOR 5 DAYS 01/02 completed Not Available Not Available Not Available azelaic acid 15 % topical gel APPLY A THIN LAYER TO FACE IN THE EVENING active Not Available Not Available No t Available Restasis 0.05 % eye drops in a dropperette ADMINISTE R 1 DROP INTO BOTH EYES 2 TIMES DAILY. active Not Available Not Available No t Available rosuvastati n 20 mg tablet TAKE 1 TABLET BY MOUTH EVERY DAY active Not Available Not Available No t Available levalbutero l HFA 45 mcg/actuati on aerosol inhaler active Not Available Not Available Not Available sildenafil (pulmonary hypertensio n) 20 mg tablet 01/02 completed Not Available Not Available Not Available oxycodone HCl-oxycodo ne-ASA DO NOT DRIVE WHILE TAKING THIS MEDICATIO N 01/02 completed Statu s: 'Curr ent'; Not Available Not Available Not Available Prolia 60 mg/mL subcutaneou s syringe INJECT 1 SYRINGE UNDER THE SKIN EVERY 6 MONTHS active Not Available Not Available No t Available Eliquis 5 mg tablet TAKE 1 TABLET BY MOUTH TWICE A DAY active Not Available Not Available No t Available Eliquis 2.5 mg tablet TAKE 1 TABLET BY MOUTH 2 TIMES DAILY 01/02 completed Not Available Not Available Not Available Jardiance 10 mg tablet TAKE 1 TABLET BY MOUTH 1 TIME EACH DAY IN THE MORNING. active Not Available Not Available No t Available Spiriva Respimat 2.5 mcg/actuati on solution for inhalation INHALE 2 PUFFS IN THE MORNING active Not Available Not Available No t Available Plenvu 140 gram-9 gram-5.2 gram powder packs TAKE DIRECTED active Not Available Not Available No t Available Vitals Date Recorded Body height Body mass index (BMI) Body weight Provider Name and Address Organization Details Last Updated DateTime 02/18/2024 160.02 cm 31.5 kg/m2 17886.44 g KENYA HUMPHREY [facility] 02/18/2024 09:37:15 Date Recorded Body height Body mass index (BMI) Body weight Provider Name and Address Organization Details Last Updated DateTime 03/07/2024 160.02 cm 31.5 kg/m2 17432.44 g Sofy casiano [facility] 03/07/2024 09:09:15 Date Recorded Body height Body mass index (BMI) Body weight Provider Name and Address Organization Details Last Updated DateTime 07/02/2024 161.29 cm 31.9 kg/m2 06357.04 g Juana Parker [facility] 07/02/2024 10:19:39 Date Recorded Body height Body mass index (BMI) Body weight Provider Name and Address Organization Details Last Updated DateTime 11/20/2024 161.29 cm 31.9 kg/m2 21991.04 g Sophia Candelario, PT [address], [place], [address], [facility] 11/20/2024 07:41:07 Date Recorded Body height Body mass index (BMI) Body weight Provider Name and Address Organization Details Last Updated DateTime 12/02/2024 161.29 cm 31.9 kg/m2 41798.04 g CED MARTINES [facility] 12/02/2024 13:54:37 Social History Question Answer Notes LastModified by Organizat ion Details LastModified Time Tobacco Smoking Status Never Smoker SELENA garcia [facility] 01/04/2024 08:09:43 What Is Your Level Of Alcohol Consumption? Occasional Information not available 01/04/2024 How Many Times Per Week Do You Consume Alcohol? 3-4 Times Per Week Information not available 01/04/2024 Do You Or Have You Ever Used E-cigarettes Or Vape? Never Used Electronic Cigarettes Information not available 01/04/2024 Have You Ever Been Counseled For Unhealthy Alcohol Use? No Information not available 01/04/2024 What Is Your Relationship Status? Information not available 01/04/2024 Do You Use Any Illicit Or Recreational Drugs? No Information not available 01/04/2024 Do You Or Have You Ever Used Any Other Forms Of Tobacco Or Nicotine? No Information not available 01/04/2024 Sex: Unknown Functional Status None recorded. Mental Status None recorded. Family History Nothing Reported. Medical History Condition Response Allergies/Hayfever N Coronary Artery Disease Y Breathing or lung disorders Y Anxiety/Depression Y Emphysema N Nerve Disorders Y Thyroid Problems N COPD N Pacemaker N Kidney/Bladder Problems N Anemia N Vascular Disease N Heart Trouble Y Heart Attack ([place]) N Gastrointestinal Disease N Cholesterol Y Diabetes N Autoimmune disease N Bleeding Disorder N Orthotics N Seizures/Epilepsy N Arthritis Y Blood Clot N AIDS/HIV N Congestive Heart Failure (CHF) N Acid Reflux (GERD) Y Cancer N Stroke N Asthma Y Circulation Problems N Peripheral Vascular Disease N Sleep Apnea Y Hepatitis N Heart Disease N Rheumatoid Arthritis N Pulmonary Embolism Y Arrhythmia Y Headaches Y Fibromyalgia N Hypertension Y Osteoporosis Y Gynecological HistoryNo gynecological history recorded. Obstetrics History GPAL:G 0 P 0 0 0 0 Past Encounters Encounter ID Performer Location Encounter Start Date Encounter Closed Date Diagnosis/Indication Diagnosis SNOMED-CT Code Diagnosis ICD10 Code Diagnosis Note [id number] [facility] [address] [place] [address] 01/04/2024 08:37:00 01/29/2024 15:21:34 History of right total knee replacement [id number] 554918 Z96.651 Pain of ri ght knee joint 9186101261 36005 M25.561 Pain of ri ght hip joint 4734895007 00659 M25.551 Osteoarthr itis of right hip joint 0003567784 13951 M16.11 [id number] [facility] [address] [place] [address] 02/18/2024 09:13:47 03/17/2024 13:27:42 Osteoarthritis of right hip joint 5609217489 02659 M16.11 After a long discussion with the patient which included the risk and benefits of the procedure. The patient is interested in proceeding with ultrasound guided {{Right* L eft}} intra-phu cular hip injection. After consent was obtained we proceeded with injection. Risks of the procedure were discussed with patient including worsening osteoarthr itis, small risk to blood vessels and tendons and nerves.Aft er consent was obtained from the patient. Under normal sterile fashion using chlorhexid ine, under ultrasound guidance, neurovascu lar bundle was first identified and then 2 cc of 1% lidocaine 1 cc of 40 mg of Kenalog was injected intra-phu cularly into the patient's hip. Ultrasound documentat ion was saved into PACS. Patient tolerated procedure well. Postproced ure protocol was discussed with the patient. Patient will contact with any questions or worsening symptoms. Follow-up as discussed [id number] Viviane Alonso PA-C [facility] [address] [place] [address] 03/07/2024 08:57:40 04/02/2024 13:13:40 Osteoarthritis of right hip joint 9012543686 11807 M16.11 reviewed in detail patient's imaging and exam findings. Discussed that she certainly has at least moderate underlying right hip osteoarthr itis. Unfortunat tiesha she did not receive any benefit from intra-phu cular cortisone injection even for short period of time. This could either be that the injection just did not take or that her symptoms are coming from an extra-phu cular cause. Offered cortisone injection into the trochanter ic bursa versus referral to [facility] for further workup of sciatica as a potential underlying cause. However she does have pain with range of motion of the hip which she describes as being similar to the pain that she is feeling. She is hoping to avoid surgery although she notes that this pain is inhibiting her activities of daily living and wakes her up from sleep. Therefore recommend referral to Dr. Reyes to discuss her options further. She elects to hold off on any bursal injection or spine referral as she notes that she has had a chronic history of back issues and this feels different. Could consider repeat attempt at intra-phu cular injection after he spent 3 months of low given that she did not even have lidocaine effect improvemen t she would likely not have adequate response. Follow up with Dr. Goodwin will be made. All questions and concerns were addressed and answered. [id number] MD Greta Velazco [address]nd floor [address] [place] [address] 07/02/2024 09:40:01 07/28/2024 13:29:02 Osteoarthritis of right hip joint [id number] M16.11 [id number] Sophia Candelario, PT [facility] on PT [address] [place] [address] 11/20/2024 08:53:31 11/20/2024 10:28:20 Osteoarthritis of right hip joint [id number] 23337 M16.11 [id number] MARLIN NEWBERRY [address] [place] [address] 12/02/2024 13:46:30 12/12/2024 13:16:23 Low back strain [id number] S39.012A Health Concerns Section Related Observation LastModified by Organization Detai ls LastModified Time None Recorded Concern Status LastModified by Organization Details LastModified Time None Recorded Advance Directives Directive None Recorded Payers Encounter Date Sequence Insurance Name Policy Number Policy Adan Covered Member ID Adan Member ID Guarantor Name 02/18/2024 1 [place] Mary Delgado [id number] Mary Delgado 02/18/2024 2 UNICARE - SENIOR SERVICES PLAN F (MEDICARE SUPPLEMENT) [id number] Mary Delgado [id number] Mary Delgado 03/07/2024 1 [place]ERNMENT [place] Mary Delgado [id number] Mary Delgado 03/07/2024 2 COMMONWEALTH INDEMNITY PLAN - UNICARE [id number] Mary Delgado [id number] Mary Delgado 07/02/2024 1 [place]ERNMENT [place] Mary Delgado [id number] Mary Delgado 07/02/2024 2 COMMONWEALTH INDEMNITY PLAN - UNICARE [id number] Mary Delgado [id number] Mary Delgado 11/20/2024 1 [place]ERNMENT [place] Mary Delgado [id number] Mary Delgado 11/20/2024 2 COMMONWEALTH INDEMNITY PLAN - UNICARE [id number] Mary Delgado [id number] Mary Delgado 12/02/2024 1 [place] [facility] [employer] SERVICES Mary Delgado [id number] Mary Delgado 12/02/2024 2 [facility] [id number] Mary Delgado [id number] Mary Delgado Notes Date Note Type Note Provider Name and Address Organization Details Recorded Time 02/18/2024 text/html I am seeing the patient under the general supervision of {{Dr. Ernestine Love*}} who was available but who did not see the patient. Pleasant {{ 73#}} year old {{female* male}} who has known diagnosis of {{right* left bilate ral}} hip {{osteoarthritis* la bral tear}}. Presents today for ultrasound-guided intraarticular cortisone injection. Continues to localize pain to the medial groin. No adverse reactions or side effects from previous injections. No new fall or injury. No neurovascular changes. Viviane Alonso PA-C [address], [place], [address], [facility] 02/18/2024 10:13:37 03/07/2024 text/html I am seeing the patient under the general supervision of {{Dr. Ernestine Love*}} who was available but who did not see the patient. Pleasant {{ 73#}} year old {{female* male}} who has known diagnosis of {{right* left bilate ral}} hip {{osteoarthritis* la bral tear}}. Presents today 2 weeks out from an IA hip injection. She reports she didn't get any relief from the injection whatsoever even for a short period of time. She reports that she has the sensation of giving way and like the leg will give out when she gets up from a seated or sedentary position. Particularly if she gets up quickly. she presents today to discuss further her options moving forward. She notes that if she takes her time getting up from seated position does not bother her as much. Does have a history of underlying sciatica. Currently localizes the pain to the posterior medial buttocks and lateral hip. Viviane Alonso PA-C [address], [place], [address], [facility] 03/07/2024 12:12:38 11/20/2024 text/html Patient is a 74 year old female, with chronic history of (R) hip pain and OA. Presents today for prehab visit for scheduled (R) JELENA on 12/15/[address] Reyes. Arrives today ambulating without AD. Reviewed post-operative mobility and mechanics with appropriate assistive device. Demonstrates good understanding of post-operative expectations, hip kit, and HEP.Functional limitations include restricted hip ROM, difficulty ambulating community distances, and pain navigating stairs. Sophia Andree, PT [address] [facility] [address], [place], [address], [facility] 11/20/2024 14:50:36 12/02/2024 text/html I am seeing the patient today under the supervision of Dr. Villanueva who was available but who did not see the patient. HPI: Patient is a pleasant 74-year-old female who presents for evaluation of ongoing low back pain. Patient reports a history of thoracic spine pain and low back pain. She states about 2 weeks ago when she was outside she coughed and heard a crack and had immediate onset of pain in her low back. The pain somewhat increased over time as the day went on has had some improvement since then. She states initially she had pressure in the low back around the area of the coccyx today she states the pain is primarily along the right low back around the SI joint. She has been taking Tylenol and utilizing topical diclofenac gel at this time. She does endorse a history of an L4 compression fracture. Patient was recently seen at [facility] urgent care on 11/21/2024 where x-rays were taken. TREATMENTS: As noted in HPI Past family, medical, social history and review of systems has been reviewed, updated and signed by me and is located in the patient? ? ?s chart. Examination: The patient is well appearing, alert and oriented x3 and in no acute distress. Gait is antalgic. Patient is able to transition from seated to standing position without difficulty.Inspectio n of the spine reveals no step off, deformity or overlying skin changes or atrophy.The spine is nontender over the paravertebral musculature. Nontender over TFL, greater trochanters or posterior hip musculature.Range of motion of the Lumbar spine is 60% of normal.Range of motion of the hips and knees is full without discomfort.Strength in lower extremity myotomes 5/5 bilaterally.Sensatio n intact.Re? e xes normal 2+at knee and ankle. No ankle clonus X-rays ordered, obtained at an outside facility and reviewed at [facility], 4 views of the lumbar spine reveals no instability or bony lesions. Degenerative disc disease noted most significantly at the L5-S1 region. Patient has stable L4 compression fracture noted on exam. Impression/Plan: Mechanical low back pain and SI joint pain. At this time I recommend physical therapy with lumbar and core stability patient is requesting we will orthopedics in [place]. Prescription was sent to this location. She will follow-up with myself in 8 weeks. We discussed at length it is up to her on whether or not she wants to reschedule her total hip replacement she states she did cancel this for this month as she was concerned that her back would get worse. All her questions asked and answered. Patient expressed understanding agreement the plan she was encouraged to continue Tylenol and diclofenac as needed [facility] speech recognition environmental maintenance worker software was used to create portions of this document. An attempt at proofreading has been made to minimize errors. Please call for corrections. YAMILE BAL PA-C [address] [facility] [address], [place], [address], [place] [facility] [place] [facility] 12/02/2024 14:33:13 OBGyn Episode No OBEpisode recorded.
== END 2024-12-20 11:29 | disposition home or self-care (01) ==
LOC: HO.MRI 11:28
PROVIDERS: PCP Internal Medicine; Visit Provider Internal Medicine
DX: M80.88XA Other osteoporosis with current pathological fracture, vertebra(e), initial encounter for fracture (principal)
CPT/HCPCS: 72148

== ENCOUNTER → 2024-12-20 11:35 | Outpatient (BNV) | payer MEDICARE, OTHER, SELFPAY | PROVIDERS: PCP Internal Medicine; Visit Provider Radiology Diagnostic Radiology | DX: M80.88XA Other osteoporosis with current pathological fracture, vertebra(e), initial encounter for fracture (principal) | CPT/HCPCS: 72148 ==

== ENCOUNTER 2024-12-29 10:00 | Outpatient (AMB) | payer MEDICARE, OTHER, SELFPAY ==
--- NOTE | 2024-12-29 10:02 | MHC.OFFVIS ---
Vital Signs 12/29/24 10:04 Height 5 ft 4 in Weight 175 lb BMI 30.0 BP 122/60 Blood Pressure Location Lt brachial Position Sitting Respiration 16 Pulse 102 H Pulse Source Pulse Oximeter Pulse Oximetry (%) 95 Oxygen Delivery Method Room Air Intake Visit Reasons: MRI results/MRI done on 12/20 Brake Linings Coater Required: No Allergies hydromorphone [From Dilaudid] Allergy (Severe, Verified 12/29/24 10:05) Confusion Sulfa Drugs Allergy (Severe, Uncoded 12/29/24 10:05) Rash Medication List - Last Reconciled 12/29/24 by Kallie Triana LPN acetaminophen ER (Tylenol Arthritis Pain) 650 mg PO Q12H PRN alprazolam 0.5 mg PO BID PRN apixaban (Eliquis) 5 mg PO BID azelaic acid 15% 1 appl topical BID benzonatate 200 mg PO BID PRN 30 days calcium citrate 250 mg PO DAILY cholecalciferol (vitamin D3) 25 mcg PO DAILY CPAP (CPAP Machine/Device) As directed cyclobenzaprine 10 mg PO TID cyclosporine 0.05% (Restasis) drps ophthalmic (eye) ONCE PRN diltiazem HCl CD mg PO ONCE empagliflozin (Jardiance) 10 mg PO DAILY fluticasone propionate 50 mcg/actuation 2 sprays intranasal DAILY 30 days furosemide (Lasix) 20 mg PO DAILY PRN 14 days gabapentin 400 mg PO TID lansoprazole 30 mg PO DAILY levalbuterol HCl mg inhalation levalbuterol tartrate 45 mcg/actuation 2 inhalations inhalation Q6H PRN 30 days lisinopril 20 mg PO BID magnesium citrate 300 mg PO DAILY mexiletine 300 mg PO Q8H multivitamin 1 tab PO DAILY nebulizers As directed Oxygen Home Use As directed rosuvastatin 20 mg PO DAILY sertraline 100 mg PO DAILY sertraline 50 mg PO DAILY tiotropium bromide 2.5 mcg/actuation (Spiriva Respimat) 2 puffs inhalation QAM tramadol 50 mg PO .4x daily trazodone 50 mg PO BEDTIME PRN 30 days HPI HPI MRI results/MRI done on 12/20: Details: History of Present Illness The patient is a 74-year-old female presenting with pain management needs and stabilization of osteoporotic fractures. 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 Following a lapse in her Prolia treatment, she developed acute osteoporotic compression fractures at T11, L2, and L3, detected in her recent MRI. Chronic deformities persist at L1 and L4. While the patient experiences minimal pain at T11, her main discomfort is localized at L2 and L3, evidenced by tenderness in that region. Her symptoms have aggravated over the past few weeks, following a cough or sneeze. She reports significant interference with daily tasks and currently utilizes a brace for support. Constipation has emerged as a side effect of Tramadol, which has failed to provide adequate pain relief. A solitary episode of pulmonary embolism was mentioned during the review, for which she is on Eliquis. The patient is exploring possibilities for endocrinology consultation to restart osteoporosis management and stabilize her condition. Pain Description - Onset and Timing: Pain has worsened over recent weeks, particularly following coughing or sneezing incidents. - Quality and Character: Pain is persistent and predominantly described in the lower back. - Location: Primarily localized to L2 and L3 regions. - Exacerbating Factors: Movement, particularly involving the back. - Relieving Factors: Utilization of a back brace provides some symptomatic relief. - Impact on Function: Significant interference with daily activities and mobility. Physical Exam - Musculoskeletal- Tenderness localized over the L2 and L3 spinous processes. Results - MRI: Acute osteoporotic compression fractures at T11, L2, L3 with edema; mild chronic fractures at L1 and L2. Pain Management - Affect: Increased frustration and emotional distress due to pain. - Analgesia: Currently using Tramadol, minimal relief, considering Tylenol No. 3 with Codeine instead. - Adverse Effects: Constipation reported as a side effect with Tramadol. - Activities of Daily Living: Pain has significantly impaired the patient's ability to perform daily tasks. - Aberrant Drug Related Behaviors: No evidence of misuse or inappropriate medication practices. [facility] Medical History (Updated 12/31/24 @ 16:43 by Ciro Chan MD) Systolic murmur Insomnia CHF (congestive heart failure) JACKIE (obstructive sleep apnea) Asthma Pulmonary hypertension Pulmonary emboli Dyspnea Social History Patient Tobacco Use Status: Never used Tobacco Physical Exam Vital Signs: Last Vital Signs Pulse 102 H 12/29/24 10:04 Resp 16 12/29/24 10:04 BP 122/60 12/29/24 10:04 Pulse Ox 95 12/29/24 10:04 Oxygen Delivery Method Room Air 12/29/24 10:04 BMI result Body Mass Index 30.0 Assessment & Plan Assessment & Plan (1) Osteoporotic compression fracture of vertebra: Code(s): M80.88XA - Other osteoporosis with current pathological fracture, vertebra(e), initial encounter for fracture Category: Medical (2) Osteoporosis: Code(s): M81.0 - Age-related osteoporosis without current pathological fracture Category: Medical Plan Plan - Proceed with kyphoplasty at L2 and L3; reassess T11 involvement/pain contribution post-surgery. - Consult with chassis wirer for osteoporosis management and Prolia reassessment/reinstitution. - Prescribe Tylenol No. 3 with Codeine, providing instructions for appropriate usage and monitoring for continued constipation. - Implement pre-surgical plan for Eliquis cessation and possible Lovenox bridging. - Advise continuous brace use for stability and symptomatic relief. - Coordinate surgical scheduling and ensure necessary pre-operative arrangements and approvals are in place. Patient was informed and verbally consented to the use of an ambient scribe for clinic note documentation during this visit. Discussion Notes I discussed in detail with the patient the nature of her osteoporotic fractures and the decision to proceed with kyphoplasty on L2 and L3. I outlined the need for possible additional intervention at T11 if pain persists. The risks and benefits of surgical stabilization versus conservative management were evaluated, and the patient expressed understanding of the interventions discussed, including withholding Eliquis preoperatively. I addressed the importance of engaging an chassis wirer for further osteoporosis management, noting that miss doses of Prolia require careful clinical supervision to prevent future fractures. Consent towards the proposed pain management transition to Tylenol No. 3 was obtained, addressing previous challenges experienced with Tramadal. Follow-up care and routine surgical planning were agreed upon. Patient Instructions - Continue wearing your back brace to help stabilize your spine and reduce pain. - Begin taking the prescribed Tylenol No. 3 with Codeine as directed for pain. - Stop taking Eliquis three days before your scheduled kyphoplasty and discuss any bridging therapy if needed. - Return unused Tramadol tablets to the pharmacy. - Follow up with your primary care for an chassis wirer referral. - Expect a call to schedule your surgery once the insurance approval is obtained. Orders: Referrals Endocrinology Referral M80.88XA - Other osteoporosis with current pathological fracture, vertebra(e), initial encounter for fracture, M81.0 - Age-related osteoporosis without current pathological fracture Medications: New acetaminophen-codeine 300-30 mg 1 tab PO BID PRN 60 tabs 0RF pain Coding Level of Care Code Est Pt Level 4 (25661) Diagnoses Osteoporotic compression fracture of vertebra M80.88XA Osteoporosis M81.0
[2024-12-29 10:04] VITALS: BP 122/60; PULSE 102; RESP 16; O2SAT 95
--- OUTSIDE RECORDS SUMMARY | 2024-12-29 10:26 | XMS_ITS | Encounter Summary ---
Author Organization [employer] Address [address] [facility] [address]t [place] [address] Care Team Providers Care Fur Matcher Name Role Phone Sherice John MD Primary Care Provider [phone] Encounter Details Date Type Department Care Team (Late st Contact Info) Description 12/07/2023 Orders Only [facility] [address] [place] [address] Sherice John MD [address] [place] [address] Social History Tobacco Use Types Packs/Day Years [...] Description 01/29/2025 10:00 AM EDT Office Visit [facility] MEDICAL [address] [place] [address] Sherice John MD [address] [place] [address] documented as of this encounter Procedures Procedure [...] on filedocumented in this encounter Care Teams Fur Matcher Relationship Specialty Start Date End Date Sherice John MD [address] [place] [address] PCP - General Internal Medicine 08/08/22 documented as of this encounter
--- OUTSIDE RECORDS SUMMARY | 2024-12-29 10:26 | XMS_ITS | Encounter Summary ---
Author Organization [employer] Address [address] [facility] [address]t [place] [address] Care Team Providers Care Mineral Mixer Name Role Phone Sherice John MD Primary Care Provider [phone] Encounter Details Date Type Department Care Team (Late st Contact Info) Description 01/07/2024 Orders Only [facility] [address] [place] [address] Sherice John MD [address] [place] [address] Social History Tobacco Use Types Packs/Day Years [...] 10:00 AM EDT Office Visit [facility] MEDICAL [address] [place] [address] Sherice John MD [address] [place] [address] documented as of this encounter Procedures Procedure [...] on filedocumented in this encounter Care Teams Mineral Mixer Relationship Specialty Start Date End Date Sherice John MD [address] [place] [id number] PCP - General Internal Medicine 08/08/22 documented as of this encounter
--- OUTSIDE RECORDS SUMMARY | 2024-12-29 10:26 | XMS_ITS | Encounter Summary ---
Author Organization [employer] Address [address] [facility] 7t [place] [address] Care Team Providers Care Aviation All Source Intelligence Name Role Phone Sherice John MD Primary Care Provider [phone] Encounter Details Date Type Department Care Team (Late st Contact Info) Description 12/19/2023 Orders Only [facility] [address] [place] [address] Sherice John MD [address] [place] [address] Social History Tobacco Use Types Packs/Day Years [...] Description 01/29/2025 10:00 AM EDT Office Visit [facility] MEDICAL [address] [place] [address] Sherice John MD [address] [place] [address] documented as of this encounter Procedures Procedure [...] on filedocumented in this encounter Care Teams Aviation All Source Intelligence Relationship Specialty Start Date End Date Sherice John MD [address] [place] [id number] PCP - General Internal Medicine 08/08/22 documented as of this encounter
--- OUTSIDE RECORDS SUMMARY | 2024-12-29 10:26 | XMS_ITS | Encounter Summary ---
Author Organization [employer] Address [address] [facility] [address] [place] [address] Care Team Providers Care Inspecting And Testing Lead Hand Name Role Phone Sherice John MD Primary Care Provider [phone] Encounter Details Date Type Department Care Team (Late st Contact Info) Description 01/16/2024 Orders Only [facility] MEDICAL [address] [place] [address] ProviderKiersten MD Social History Tobacco Use Types Packs/Day Years Used Date Smoking Tobacco: Never Passive Smoke Exposure: Past Smokeless Tobacco: Never Alcohol Use Standard Drinks/Week Comments Yes 0 (1 standard drink = 0.6 oz pur e alcohol) Housing Stability Answer Date Recorded What is your housing situation today? I have magdavesta hoskins 06/04/[address] you [...] Description 01/29/2025 10:00 AM EDT [facility] [address] [place] [address] Sherice John MD [address] [place] [address] documented as of this encounter Procedures Procedure Name Priority Date/Time Associated Diagnosis Comments TRANSTHORACIC ECHO (TTE) COMPLETE Routine 01/03/2024 4:27 AM EDT documented in this encounter Results * Transthoracic echo (TTE) complete (01/03/2024 4:27 AM EDT) us Historical Provider MD ZAMUDIO ECHO PROCEDURES Final Result documented in this encounter Visit Diagnoses Not on filedocumented in this encounter Care Teams Inspecting And Testing Lead Hand Relationship Specialty Start Date End Date Sherice John MD [address] [place] [address] PCP - General Internal Medicine 08/08/22 documented as of this encounter
--- OUTSIDE RECORDS SUMMARY | 2024-12-29 10:26 | XMS_ITS | Clinical Summary ---
Author Organization [facility] [employer] [facility] Address [address] [facility] [place] [address] Phone Care Team Providers Care Jacquard Loom Card Changer Name Role Phone Sherice John MD Primary Care Provider [phone] Allergies Active Allergy Reactions Criticality Noted Date [...] the morning. 90 tablet 2 5 Active Active Problems Problem Noted Date [...] CMS/HCC V28) PVC (premature ventricular contraction) 11/08/19 23 Overview (06/13/2024): Last Assessment & Plan: Symptomatic control and low frequency of PVCs on most recent rhythm monitor. Continue diltiazem and mexiletine. Appreciate management from [facility] electrophysiology. Seasonal allergies 11/07/2022 Moderate persistent asthma [...] defer management of this issue to her weed control inspector. Fortunately her dyspnea on exertion has been stable and is not significantly interfering with her quality of life. Mild persistent asthma 02/07/2019 GERD (gastroesophageal reflux disease) 9 Encounters Date Type Department Care Team Description 12/01/2024 1:30 PM EDT Office Visit [facility] [address] [facility] [address] [place] [address] Mikal Jones MD Chronic diastolic heart failure (CMS/HCC V24, CMS/HCC V28) (Primary Dx); Dilated cardiomyopathy (CMS/HCC V24, CMS/HCC V28) from Last 3 Months Immunizations Name [...] KNEE REPLACE KIDNEY STONE SURGERY 01/2017 PROCEDURE: WA NEPHROLITHOTOMY REMOVAL CALCULUS; COMMENT: Ureteroscopy/stone removal /stent [...] Description 06/23/2025 10:40 AM EST Office Visit [facility] - [facility] [address] [place] [address] CycDante feng NP [address] [place] [address] [address] [place] [address] Health Maintenance Due Date Last Done Comments [...] AM EST Performed at: ??01 - [facility] [address] ??[id number] Telecom Field Technician: Trudy Zamudio MD, Phone: ??[phone] us Reshma Valderrama NUT ROASTER HELPER LAB BLOOD ORDERABLES Final R esult [facility] 1 from Last 3 Months or Most Recently Relevant to Health Maintenance Insurance MEDICARE [facility] Care Teams Jacquard Loom Card Changer Relationship Specialty Start Date End Date Sherice John MD [address] [place] [address] PCP - General Internal Medicine 01/10/19
--- OUTSIDE RECORDS SUMMARY | 2024-12-29 10:26 | XMS_ITS | Encounter Summary ---
Author Organization [employer] Address [address] [facility] 7t [place] [address] Care Team Providers Care Library Customer Service Clerk Name Role Phone Sherice John MD Primary Care Provider [phone] Encounter Details Date Type Department Care Team (Late st Contact Info) Description 08/25/2023 Orders Only [facility] [address] [place] [address] Sherice John MD [address] [place] [address] Social History Tobacco Use Types Packs/Day Years [...] 01/29/2025 10:00 AM EDT Office Visit [facility] MEDICAL [address] [place] [address] Sherice John MD [address] [place] [address] documented as of this encounter Procedures Procedure Name Priority Date/Time Associated Diagnosis Comments XR CHEST 2 VIEWS Routine 08/17/2023 documented in this encounter Results * XR Chest 2 Views (08/17/2023) Anatomical Region Laterality Modality Chest Radiographic Tami ging Sherice John MD IMG XR PROCEDURES Edited Result - Final documented in this encounter Visit Diagnoses Not on filedocumented in this encounter Care Teams Library Customer Service Clerk Relationship Specialty Start Date End Date Sherice John MD [address] [place] [address] PCP - General Internal Medicine 08/08/22 documented as of this encounter
--- OUTSIDE RECORDS SUMMARY | 2024-12-29 10:26 | XMS_ITS | Encounter Summary ---
Author Organization [employer] Address [address] [facility] 7t [place] [address] Care Team Providers Care Internet And E Business Project Manager Name Role Phone Sherice John MD Primary Care Provider [phone] Reason for Visit * Reason Onset Date Comments Med Refill 12/18/2024 Prolia Rx to [facility] mail order pharmacy Medication Problem 12/18/2024 Encounter Details Date Type Department Care Team (Late st Contact Info) Description 12/18/[address] [facility] MEDICAL [address] [place] [address] Sherice John MD [address] [place] [address] Age-related osteoporosis with current pathological fracture with [...] encounter Miscellaneous Notes * Telephone Encounter - Nhung Arias RN - 12/25/2024 1:45 PM EDT Called [facility]. Spoke with Elizabeth who said the Prolia is scheduled for delivery tomorrow. * Telephone Encounter - Migdalia Jones - 12/24/2024 3:51 PM EDT Kat ([facility]) called stating I'm calling to schedule the delivery for the office, the earliest I can get it there is next Sunday12/31/24, is that going to work? Please call me back at [phone]. TE sent to nurses, please advise thank you! * Telephone Encounter - SCOTT Yoo - 12/18/2024 9:54 AM EDT Prolia Rx qued - pharmacy changed to [email or web address] at patients request. Last OV: 12/15/24 Next OV: 01/29/25 * Telephone Encounter - Sarah Piña - 12/18/2024 8:47 AM EDT Patient called regarding the following medication denosumab (Prolia) 60 MG/ML solution prefilled syringe Please resend to the following pharmacy as local pharmacy will not fill this script [facility] - ANAIS Champagne - [facility] AT Portal to Registered [facility] Sites documented in this encounter Plan of Treatment Upcoming Encounters Date Type Department Care Team (Late st Contact Info) Description 01/29/2025 10:00 AM EDT Office Visit [facility] MEDICAL [address] [place] [address] Sherice John MD [address] [place] [address] documented as of this encounter Visit Diagnoses Diagnosis Age-related osteoporosis with current pathological fracture with delayed healing, subsequent encounter documented in this encounter Care Teams Internet And E Business Project Manager Relationship Specialty Start Date End Date Sherice John MD [address] [place] [address] PCP - General Internal Medicine 08/08/22 documented as of this encounter
--- OUTSIDE RECORDS SUMMARY | 2024-12-29 10:26 | XMS_ITS | Data Portability ---
Author Organization [place] [facility], Allergy Address [address] [address] Care Team Providers Care Piecer Name Role Phone CARLOS CHILDERS Primary Care [...] eural hearing loss of bilatera l ears 573759241 Active 2019 Sensorin eural hearing loss, bilatera l; Note: Date Diagnose d: 0 2:40 PM (H90.3) Not Available [facility] 4 02:45:12 Disorder of right Eustachi an tube 10800754396 17033 Active 2019 Other specifie d disorder s of Eustachi an tube, right ear; Note: Date Diagnose d: 04/20/2020 4:01 PM (H69.81) Not Available [facility] 4 02:45:15 Impacted cerumen in right ear 55543548561 05321 Active 2022 Impacted cerumen, right ear; Note: Date Diagnose d: 3 11:11 AM (H61.21) Not Available [facility] 4 02:45:12 Acute serous otitis media of right ear 36660470409 58352 Completed 201903/21/2024 Acute serous otitis media, right ear; Note: Date Diagnose d: 0 2:34 PM (H65.01) Not Available [facility] 4 02:45:08 Posterio r rhinorrh ea 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 Active 2017 Postnasa l drip; Note: Date Diagnose d: 12/25/2017 2:12 PM (R09.82) Not Available [facility] 4 02:45:11 Allergic rhinitis 46173608 Active 2017 Allergic rhinitis , unspecif ied; Note: Date Diagnose d: 12/25/2017 2:12 PM (J30.9) Not Available [facility] 4 02:45:10 Cough 02542309 Active 2018 Cough; Note: Date Diagnose d: 09/24/2018 11:18 AM (R05) Not Available [facility] 4 02:45:09 Cough variant asthma 200454806 Active 2018 Cough variant asthma; Note: Date Diagnose d: 11/19/2018 11:34 AM (J45.991 ) Not Available [facility] 4 02:45:09 Impacted cerumen of bilatera l ears 79693690621 00869 Active 2018 Impacted cerumen, bilatera l; Note: Date Diagnose d: 09/24/2018 11:18 AM (H61.23) Not Available [facility] 4 02:45:10 Headache 07554786 Active 2017 Headache ; Note: Date Diagnose d: 12/25/2017 2:12 PM (R51) Not Available [facility] 4 02:45:09 Otalgia of right ear 6319468105 Active 2018 Otalgia, right ear; Note: Date Diagnose d: 09/24/2018 12:52 PM (H92.01) Not Available [facility] 4 02:45:14 Obstruct demarco sleep apnea syndrome 06530901 Active 2018 Obstruct demarco sleep apnea (adult) (pediatr ic); Note: Date Diagnose d: 9 11:20 AM (G47.33) Not Available [facility] 4 02:45:14 Itching of skin 851135062 Active 2023 Nata garcia [place] - [facility] 4 09:46:48 Problem Notes None recorded. Medical Equipment None Reported. Allergies Allergen ID Allergen Name Allergen Category Reaction Reaction Severity Criticality Documentation Date Start Date Code Code System Note Provider Name and Address Organization Details Recorded Time 72366 Substance with sulfonami de structure and antibacte rial mechanism of action (substanc e) medicatio n other Not available Not available 01/01/2024 51778 8003 SNOMED React ion: unkno wn, unspe cifie d;; Not Available [facility] 4 00:49:45 Medications Name Sig Start [...] mg tablet 02/02 completed Medicati on ID: [id number] D uration Value: 30 Brand Name: amlodipi [...] 5 mg tablet active Medicati on ID: [id number] B rand Name: bisoprol ol fumarate Send Method: E-Prescr ibed Sub s Allowed: subs OK Medic ationGen ericName : bisoprol ol fumarate Not Available Not Available Not Available alprazola m 0.5 mg tablet TAKE 1/2 TO 1 TABLET DAILY NEEDED FOR ANXIETY active Not Available Not Available No t Available gabapenti n 800 mg tablet 02/02 completed Medicati on ID: [id number] D uration Value: 30 Brand Name: gabapent in Send Method: E-Prescr ibed Sub s Allowed: subs OK Speci al Instruct ion: take 1 tablet by mouth at bedtime Medicati onGeneri cName: gabapent in Not Available Not Available Not Available meclizine 25 mg tablet 11/13 completed Medicati on ID: [id number] B rand Name: meclizin e Send Method: E-Prescr ibed Sub s Allowed: subs OK [facility] : meclizin e Not Available Not [...] mg tablet 02/02 completed Medicati on ID: [id number] D uration Value: 30 Brand Name: zolpidem [...] 24 hr 2020 active Medicati on ID: [id number] B rand Name: metoprol ol succinat e Send Method: E-Prescr ibed Sub s Allowed: subs OK Medic ationGen ericName : metoprol ol succinat e Not Available Not Available Not Available lotepredn ol etabonate 0.5 % eye drops,[facility] ADMINIST ER 1 DROP INTO BOTH EYES 4 TIMES DAILY FOR 14 DAYS. active Not Available Not Available No t Available zolpidem 10 mg tablet 2020 active Medicati on ID: [id number] B rand Name: zolpidem Send Method: E-Prescr ibed Sub s Allowed: subs OK Medic ationGen ericName : zolpidem Not Available Not Available Not Available fluticaso ne propionat e 50 mcg/actua tion nasal spray,[facility] pension 2020 active Medicati on ID: 376126 B rand Name: fluticas one propiona te [...] sustained -release 11/13 completed Medicati on ID: [id number] B rand Name: bupropio n HCl Send [...] aerosol inhaler 2020 active Medicati on ID: [id number] B rand Name: Flovent HFA Send Method: E-Prescr ibed Sub s Allowed: subs OK Medic ationGen ericName : Flovent HFA Not Available Not Available Not Available Flovent HFA 220 mcg/actua tion aerosol inhaler 11/13 completed Medicati on ID: [id number] B rand Name: Flovent HFA Send Method: [...] in dose pack active Medicati on ID: 612776 B rand Name: Eliquis DVT-PE Treat 30D [...] Updated DateTime 05/20/2024 162.56 cm 30 kg/m2 19165.[address] - [facility] 05/20/2024 09:37:03 Social History None recorded. Functional Status None recorded. Mental Status None recorded. Family History Nothing Reported. Medical History No medical history recorded. Gynecological HistoryNo gynecological history recorded. Obstetrics History GPAL:G 0 P 0 0 0 0 Past Encounters Encounter ID Performer Location Encounter Start Date Encounter Closed Date Diagnosis/Indication Diagnosis SNOMED-CT Code Diagnosis ICD10 Code Diagnosis Note [id number] NATA GENAO PA-C [facility] [address] [address] 05/20/2024 09:25:09 05/20/2024 09:48:11 Itching of skin 940498929 L29.9 Health Concerns Section Related Observation LastModified by Organization Detai ls LastModified Time None Recorded Concern Status LastModified by Organization Details LastModified Time None Recorded Advance Directives Directive None Recorded Payers Insurance Date Sequence Insurance Name Policy Number Policy Adan Covered Member ID Adan Member ID Guarantor Name 05/20/2024 1 MEDICARE B-CT: [facility] [employer] Mary Delgado [id number] Mary Delgado 05/20/2024 2 [facility] IN[employer]ITY [employer] - UNICARE [id number] Mary Delgado [id number] Mary Delgado Notes Date Note Type Note Provider Name and Address Organization Details Recorded Time 05/20/2024 text/html 74 year old female presents today for an ear cleaning.No specific concerns today. She does have some itching at the ear canal opening. No drainage or pain. HAYDEN BEARDEN MD [address] [place] [address], [place], [address], [place] - [facility] 05/20/2024 10:12:08 OBGyn Episode No OBEpisode recorded.
--- OUTSIDE RECORDS SUMMARY | 2024-12-29 10:26 | XMS_ITS | Clinical Summary ---
Author Organization [employer] Address [address] [facility] 7t [place] [address] Care Team Providers Care Data Systems Manager Name Role Phone Sherice John MD Primary Care Provider [phone] Allergies Active Allergy Reactions Criticality Noted Date [...] by mouth Once per day. Per cardiology 01/24/2 024 Active oxygen (O2) gas by Other route. [...] will f/up with both her pulm and mainframe software developer , continue daily weights and report if greater than 2 lb wt gain day to day or 5 lbs in one week. Self monitor closely for any new open wounds or bleeding as she is taking Eliquis 5 mg PO BID d/t hx PE and pulm HTN, ?cardiomyopathy, ? CHF. Recommended schedule her pulm and mainframe software developer followup visits soon and agrees to do [...] EDT): Encouraged to keep current with her sack sorter and mainframe software developer given her multple complex pulm and cardio health diagnoses and history. Tonight's bp somewhat elevated and will self monitor bp/pulse and 02 sat daily and make/keep PCP, pulm and mainframe software developer followup visits and agrees to consult with reg laminate floor installer for dietary advice to help with her [...] on the results of her echocardiogram from [facility] and discussed with her if there are actionable findings. I did encourage her to follow-up with her new sack sorter to determine if there are further investigations or treatment warranted for pulmonary hypertension. 11/22/18 CAIT: Mild Assessment & Plan (06/25/2024 8:30 PM EST): Followed by cardiology and also pulm HTN specialist in [place] Dr. Tangela Deleon. See HPI, encouraged to f/up both with her mainframe software developer who is prescribing her torsemide and with [...] Encounters Date Type Department Care Team Description 12/25/[address] [address] Sherice John MD Acute midline low back pain without sciatica 12/22/2024 Orders Only [facility] Information Management [address] [place] [address] Sherice John MD 12/18/[address] [address] Sherice John MD Age-related osteoporosis with current pathological fracture with delayed healing, subsequent encounter 12/18/[address] [address] Sherice John MD Acute midline low back pain without sciatica 12/15/2024 3:40 PM EDT Telemedicine [address] [address] Sherice John MD Acute bilateral low back pain without sciatica (Primary Dx); Age-related osteoporosis with current pathological fracture with delayed healing, subsequent encounter 12/13/[address] [address] Sherice John MD Medication Question 12/12/2024 Travel 12/02/2024 Refill [facility] MEDICAL [address] [place] [address] Sherice John MD 11/24/2024 2:20 PM EDT Telemedicine [place] [address] [place] [address] Sherice John MD Acute bilateral low back pain without sciatica (Primary Dx) 11/24/2024 Travel 11/17/2024 Telephone [facility] MEDICAL [address] [place] [address] Sherice John MD Back Pain 11/03/2024 10:00 AM EDT Telemedicine [facility] [address] [place] [address] Sherice John MD Syncope, unspecified syncope type (Primary Dx) 11/02/2024 Travel from Last 3 Months Immunizations Name [...] 01/29/2025 10:00 AM EDT Office Visit [facility] [address] [place] [address] Sherice John MD [address] [place] [address] Health Maintenance Due Date Last Done Comments [...] Procedure Name Priority Date/Time Associated Diagnosis Comments MRI LUMBAR SPINE WO CONTRAST Routine 12/20/2024 9:24 AM EDT AMB REFERRAL TO CARDIOLOGY Routine 12/01/2024 Pulmonary [...] Recently Relevant to Health Maintenance Results * MRI LUMBAR SPINE WO CONTRAST (12/20/2024 9:24 AM EDT) Anatomical Region Laterality Modality Magnetic Resonan ce us Sherice John MD [facility] MRI PROCEDURES Final Result * Referral to Cardiology (12/01/2024) us Sherice John MD OUTPATIENT REFERRAL ORDERABLES F inal Result * BONE DENSITY/DEXA (HIPS, PELVIS OR SPINE) (11/24/2024) Anatomical Region Laterality Modality L-spine N/A Radiographic Tami ging us Sherice John MD [facility] DXA PROCEDURES Final Result * XR Lumbar [...] Breast Bilateral Mammography Result Candace John MD [facility] BI PROCEDURES Final Result * Lipid panel (09/07/2022 12:08 PM EST) Cholesterol, Total 164 (<200) MG/DL [facility] Triglyceride (mg/dL) in Serum/Plasma 83 (<150) MG/DL [facility] HDL Cholesterol 75 (>39) MG/DL [facility] LDL Cholesterol, Calculated 72 (0-130) MG/DL [facility] Non HDL Chol. (LDL+VLDL) 89 (<160) MG/DL [facility] Comment: Testing performed or reported by [facility], a Service of [facility], [address] [place] [address] Lulu Masters MD, Warehouse Incentive Selector [facility]# [id number] Blood Venous blood specimen / Unknown 09/07/2022 12:08 PM EST 09/07/2022 12:10 PM EST Result Candace John MD LAB BLOOD ORDERABLES Final Resul t [address] [address] * Pap Smear (02/01/2016 12:00 AM EDT) Swab Historical Provider LAB CYTOLOGY ORDERABLES F inal Result * Hepatitis C Antibody (08/20/2011 3:22 PM EST) Hepatitis C Antibody Nonreactive Blood 08/20/2011 3:22 PM EST Historical Provider POINT OF CARE TEST ENTER/ EDIT ORDERABLES Final Result from Last 3 Months or Most Recently Relevant to Health Maintenance Insurance [facility] MEDICARE Member Subscriber Plan / Payer ( fective 2022-Present) Name:Mary Delgado Member ID:[id number] Relation to Subscriber:Self Name:Mary Delgado Subscriber ID:[id number] Payer ID:STATE Group ID:Not on file Type:Medicare Address: [facility] [address] [address] Care Teams Data Systems Manager Relationship Specialty Start Date End Date Sherice John MD [address] [place] [address] PCP - General Internal Medicine 08/08/22
--- OUTSIDE RECORDS SUMMARY | 2024-12-29 10:26 | XMS_ITS | Encounter Summary ---
Author Organization [employer] Address 75 [facility] 7t [place] [address] Care Team Providers Care Mortgage Branch Manager Name Role Phone Pauline John MD Primary Care Provider [phone] Reason for Visit * Reason Onset Date Comments Medication Problem 05/25/2023 Encounter Details Date Type Department Care Team (Late st Contact Info) Description 05/25/2023 Telephone [facility] MEDICAL [address] [place] [address] Pauline John MD [address] [place] [address] Medication Problem Social History Tobacco Use Types [...] 11:50 AM EDT Had a apt with [place] on Sunday she was due to change medication she is taking not seeing any prescriptions in file. documented in this encounter Plan of Treatment Upcoming Encounters Date Type Department Care Team (Late st Contact Info) Description 01/29/2025 10:00 AM EDT Office Visit [facility] MEDICAL [address] [place] [address] Pauline John MD [address] [place] [address] documented as of this encounter Visit Diagnoses Not on filedocumented in this encounter Care Teams Mortgage Branch Manager Relationship Specialty Start Date End Date Pauline John MD [address] [place] [address] PCP - General Internal Medicine 08/08/22 documented as of this encounter
--- OUTSIDE RECORDS SUMMARY | 2024-12-29 10:26 | XMS_ITS | Encounter Summary ---
Author Organization [employer] Address 75 [facility] 7t [place] [address] Care Team Providers Care Solar Designer Name Role Phone Sherice John MD Primary Care Provider [phone] Encounter Details Date Type Department Care Team (Late st Contact Info) Description 07/31/2023 Orders Only [facility] [address] [place] [address] Sherice John MD [address] [place] [address] Social History Tobacco Use Types Packs/Day Years [...] 10:00 AM EDT Office Visit [facility] MEDICAL [address] [place] [address] Sherice John MD [address] [place] [address] documented as of this encounter Procedures Procedure Name Priority Date/Time Associated Diagnosis Comments TSH Routine 07/30/2023 documented in this encounter Results * TSH (07/30/2023) Blood Venous blood specimen / Unknown us Sherice John MD LAB BLOOD ORDERABLES Edited Resu lt - Final documented in this encounter Visit Diagnoses Not on filedocumented in this encounter Care Teams Solar Designer Relationship Specialty Start Date End Date Sherice John MD [address] [place] [address] PCP - General Internal Medicine 08/08/22 documented as of this encounter
--- OUTSIDE RECORDS SUMMARY | 2024-12-29 10:26 | XMS_ITS | Encounter Summary ---
Author Organization [employer] Address 75 [facility] 7t [place] [address] Care Team Providers Care Piccolo Mechanic Name Role Phone Sherice John MD Primary Care Provider [phone] Encounter Details Date Type Department Care Team (Late st Contact Info) Description 05/14/2024 Orders Only [place] [facility] Information Management [address] [place] [address] Sherice John MD [address] [place] [address] Social History Tobacco Use Types Packs/Day Years [...] Description 01/29/2025 10:00 AM EDT Office Visit [facility] MEDICAL [address] [place] [address] Sherice John MD [address] [place] [address] documented as of this encounter Procedures Procedure [...] on filedocumented in this encounter Care Teams Piccolo Mechanic Relationship Specialty Start Date End Date Sherice John MD [address] [place] [address] PCP - General Internal Medicine 08/08/22 documented as of this encounter
--- OUTSIDE RECORDS SUMMARY | 2024-12-29 10:26 | XMS_ITS | Encounter Summary ---
Author Organization [employer] Address [address] [facility] 7t [place] [address] Care Team Providers Care Wardrobe Technician Name Role Phone Sherice John MD Primary Care Provider [phone] Reason for Visit * Reason Onset Date Comments Rx needs clairification 04/22/2024 Gabapent in Rx needs clarification Encounter Details Date Type Department Care Team (Late st Contact Info) Description 04/22/2024 Refill [facility] [address] [place] [address] Sherice John MD [address] [place] [address] Primary insomnia Social History Tobacco Use Types [...] [facility] [address] [place] [address] Sherice John MD [address] [place] [address] documented as of this encounter Visit Diagnoses Diagnosis Primary insomnia Persistent disorder of initiating or maintaining sleep documented in this encounter Care Teams Wardrobe Technician Relationship Specialty Start Date End Date Sherice John MD [address] [place] [address] PCP - General Internal Medicine 08/08/22 documented as of this encounter
--- OUTSIDE RECORDS SUMMARY | 2024-12-29 10:26 | XMS_ITS | Encounter Summary ---
Author Organization [email or web address] Address [address] [facility] 7t [place] [address] Care Team Providers Care Clinical Services Director Name Role Phone Sherice John MD Primary Care Provider [phone] Encounter Details Date Type Department Care Team (Late st Contact Info) Description 10/01/2023 Orders Only [facility] [address] [place] [address] Sherice John MD [address] [place] [address] Social History Tobacco Use Types Packs/Day Years [...] Description 01/29/2025 10:00 AM EDT Office Visit [facility] MEDICAL [address] [place] [address] Sherice John MD [address] [place] [address] documented as of this encounter Procedures Procedure Name Priority Date/Time Associated Diagnosis Comments CBC WITH AUTO DIFFERENTIAL Routine 10/01/2023 documented in this encounter Results * CBC auto differential (10/01/2023) Blood Venous blood specimen / Unknown us Sherice John MD LAB BLOOD ORDERABLES Edited Resu lt - Final documented in this encounter Visit Diagnoses Not on filedocumented in this encounter Care Teams Clinical Services Director Relationship Specialty Start Date End Date Sherice John MD [address] [place] [address] PCP - General Internal Medicine 08/08/22 documented as of this encounter
--- OUTSIDE RECORDS SUMMARY | 2024-12-29 10:26 | XMS_ITS | Encounter Summary ---
Author Organization [employer] Address [address] [facility] 7t [place] [address] Care Team Providers Care Paedodontist Name Role Phone Sherice John MD Primary Care Provider [phone] Encounter Details Date Type Department Care Team (Late st Contact Info) Description 09/23/2024 Orders Only [facility] [address] [place] [address] Sherice John MD [address] [place] [address] Social History Tobacco Use Types Packs/Day Years [...] [facility] MEDICAL [address] [place] [address] Sherice John MD [address] [place] [phone] documented as of this encounter Procedures Procedure Name Priority Date/Time Associated Diagnosis Comments HM COLONOSCOPY Routine 05/06/2024 1:27 PM EDT documented in this encounter Results * Hm Colonoscopy (05/06/2024 1:27 PM EDT) Sherice John MD HEALTH MAINTENANCE Final Result documented in this encounter Visit Diagnoses Not on filedocumented in this encounter Care Teams Paedodontist Relationship Specialty Start Date End Date Sherice John MD [address] [place] [id number] PCP - General Internal Medicine 08/08/22 documented as of this encounter
--- OUTSIDE RECORDS SUMMARY | 2024-12-29 10:26 | XMS_ITS | Clinical Summary ---
Author Organization [facility] Address [address] [place] [address] Care Team Providers Care Clinical Laboratory Assistant Name Role Phone Sherice John MD Primary Care Provider [phone] Allergies Active Allergy Reactions Criticality Noted Date [...] Density (Females,Ag es 65 and older) 2017 COVID-19 Vaccine ( - 2023-2 5 season) 2024 Influenza Vaccine 03/20/2025 RSV Vaccine 60 years and old er and Patients (1 - 1-dose 75+ series) 2027 Hepatitis B Vaccines Aged Out No long er eligible based on patient's age to complete this topic Insurance MEDICARE PART A & B [facility] [place] [employer] Care Teams Clinical Laboratory Assistant Relationship Specialty Start Date End Date Sherice John MD [address] [place] [address] PCP - General 12/12/18
--- OUTSIDE RECORDS SUMMARY | 2024-12-29 10:26 | XMS_ITS | Encounter Summary ---
Author Organization [employer] Address [address] [facility] 7t [place] [address] Care Team Providers Care Jr. Systems Administrator Name Role Phone Sherice John MD Primary Care Provider [phone] Encounter Details Date Type Department Care Team (Late st Contact Info) Description 12/22/2024 Orders Only [facility] [address] [place] [address] Sherice John MD [address] [place] [address] Social History Tobacco Use Types Packs/Day Years [...] Description 01/29/2025 10:00 AM EDT Office Visit [facility] MED[facility] [address] [place] [address] Sherice John MD [address] [place] [phone] documented as of this encounter Procedures Procedure Name Priority Date/Time Associated Diagnosis Comments MRI LUMBAR SPINE WO CONTRAST Routine 12/20/2024 9:24 AM EDT documented in this encounter Results * MRI LUMBAR SPINE WO CONTRAST (12/20/2024 9:24 AM EDT) Anatomical Region Laterality Modality Magnetic Resonan ce us Sherice John MD IMG MRI PROCEDURES Final Result documented in this encounter Visit Diagnoses Not on filedocumented in this encounter Care Teams Jr. Systems Administrator Relationship Specialty Start Date End Date Sherice John MD [address] [place] [id number] PCP - General Internal Medicine 08/08/22 documented as of this encounter
--- OUTSIDE RECORDS SUMMARY | 2024-12-29 10:26 | XMS_ITS | Encounter Summary ---
Author Organization [employer] Address [address] [facility] 7t [place] [address] Care Team Providers Care Head Golf Coach Name Role Phone Sherice John MD Primary Care Provider [phone] Reason for Visit * Reason Onset Date Comments Med Refill 12/25/2024 CS Rx refill on Tramadol Encounter Details Date Type Department Care Team (Late st Contact Info) Description 12/25/2024 Refill [place] [facility] [address] [place] [address] Sherice John MD [address] [place] [address] Acute midline low back pain without sciatica [...] encounter Miscellaneous Notes * Telephone Encounter - Migdalia Jones - 12/26/2024 12:13 PM EDT Patient called stating I've been having severe pain but the Tramadol is not helping, I was wondering if SD could prescribe me something stronger perhaps? She knows I have an appointment with my pain management doctor on Sunday12/29/24. Patient states she would like a call back, thank you! * Telephone Encounter - SCOTT Yoo - 12/25/2024 10:54 AM EDT [facility] Last fill Date: 12/18/24 #20 5 d [facility] sold Date: 12/19/24 Last OV:12/15/24 Next OV: 01/29/25 Last UTOX: CSA Date: DNF Date: refill is due * Telephone Encounter - Migdalia oJnes - 12/25/2024 10:33 AM EDT Patient called to refill prescription: traMADol (Ultram) 50 MG tablet Sig: Take 1 tablet (50 mg) by mouth every 6 (six) hours if needed for moderate pain for up to 5 days. Patient states she has 3 left. Pharmacy: [id number] - [place], [place] - [address] [facility] [place]: 09/23/24 NOV: 01/29/25 documented in this encounter Plan of Treatment Upcoming Encounters Date Type Department Care Team (Late st Contact Info) Description 01/29/2025 10:00 AM EDT Office Visit [place] [facility] [address] [place] [address] Sherice John MD [address] [place] [address] documented as of this encounter Visit Diagnoses Diagnosis Acute midline low back pain without sciatica documented in this encounter Care Teams Head Golf Coach Relationship Specialty Start Date End Date Sherice John MD [address] [place] [address] PCP - General Internal Medicine 08/08/22 documented as of this encounter
== END 2024-12-29 10:41 | disposition home or self-care (01) ==
PROVIDERS: PCP Internal Medicine; Visit Provider Internal Medicine
DX: M80.00XA Age-related osteoporosis with current pathological fracture, unspecified site, initial encounter for fracture (principal)
CPT/HCPCS: 99214

== ENCOUNTER → 2024-12-29 10:00 | Outpatient (BNVA) | payer MEDICARE, OTHER, SELFPAY | PROVIDERS: PCP Internal Medicine; Visit Provider Internal Medicine | DX: M80.08XA Age-related osteoporosis with current pathological fracture, vertebra(e), initial encounter for fracture (principal) | CPT/HCPCS: 99212 ==

== ENCOUNTER 2025-01-21 11:52 | Day surgery (SDC) | payer MEDICARE, OTHER, SELFPAY ==
--- NOTE | 2025-01-20 11:45 | P.CONAN_ITS ---
Documented by User: Anya Emery NP 01/20/25 11:58 HPI - Anesthesia Eval Consult details Narrative: 74yo F for L2 and L3 Kyphoplasty Cardiac optimized. Follows [facility] for symptomatic PVCs, nonobstructive CAD, mild pulmo htn, HFpEF. Euvolemic and unremarkable cardiac MRI (trace MR). Follows [facility] pulmo for PE (eliquis), asthma, MCDONALD, prn supplemental O2. Last office eval 11/2024, increased lasix for 3 days. Per telephone eval with Sandra RN, pt reports improvement in breathing, using spiriva as rx'd, no rescue inhaler needed, MCDONALD at baseline Case reviewed with LM Anesthesia Pre-Procedure Meds Is the patient on any of the following meds?: SGLT2 Inhib PMFSH Active Problems Active Problems: All Active Problems Hydronephrosis (Acute) Osteoporosis (Acute) Osteoporotic compression fracture of vertebra (Acute) Compression fracture of body of thoracic vertebra (Acute) Back pain (Acute) Cough (Acute) Systolic murmur (Acute) Insomnia (Acute) CHF (congestive heart failure) (Acute) JACKIE (obstructive sleep apnea) (Acute) Asthma (Acute) Pulmonary hypertension (Acute) Pulmonary emboli (Acute) Dyspnea (Acute) Past Medical History Medical History Premature ventricular contraction Bradycardia SOB (shortness of breath) Palpitations Dilated cardiomyopathy Mitral regurgitation Aortic atherosclerosis Vitamin D deficiency CAD (coronary artery disease) Restless leg syndrome Migraine Nephrolithiasis Cataract Depression Hiatal hernia GERD (gastroesophageal reflux disease) Oxygen dependent On anticoagulant therapy Elevated cholesterol Atrial fibrillation HTN (hypertension) On home oxygen therapy Systolic murmur Insomnia CHF (congestive heart failure) JACKIE (obstructive sleep apnea) Asthma Pulmonary hypertension Pulmonary emboli Dyspnea Surgical History Surgical History Hx of cataract extraction History of esophagogastroduodenoscopy (EGD) H/O colonoscopy Hx of lithotripsy History of total bilateral knee replacement (TKR) Social History Social History Are you a primary healthcare financial analyst to a significant other at home: No Do you presently have visiting nurse or other home services: No Patient Tobacco Use Status: Never used Tobacco Meds Allergies Allergy/AdvReac Type Severity Reaction Status Date / Time hydromorphone [From Dilaudid] Allergy Severe Confusion Verified 12/29/24 10:05 Sulfa Drugs Allergy Severe Rash Uncoded 12/29/24 10:05 Home Medications ?Medication ?Instructions ?Recorded ?Confirmed ?Last Taken ?Type alprazolam 0.5 mg tablet 0.5 mg PO BID PRN Anxiety 02/08/23 01/19/25 Unknown History apixaban 5 mg tablet (Eliquis) 5 mg PO BID 02/08/23 01/19/25 01/16/25 History lansoprazole 30 mg capsule,delayed 30 mg PO DAILY 02/08/23 01/19/25 01/21/25 History release levalbuterol HCl 0.63 mg/3 mL 0.63 mg inhalation DIRECTED PRN 02/08/23 01/19/25 Unknown History solution for nebulization Shortness Of Breath Or Wheezing lisinopril 20 mg tablet 20 mg PO DAILY 02/08/23 01/19/25 Unknown History nebulizers 02/08/23 Unknown History rosuvastatin 20 mg tablet 20 mg PO DAILY 02/08/23 01/19/25 Unknown History sertraline 100 mg tablet 150 mg PO DAILY 02/08/23 01/19/25 Unknown History tiotropium bromide 2.5 2 puff inhalation QAM 02/08/23 01/19/25 Unknown History mcg/actuation mist for inhalation (Spiriva Respimat) azelaic acid 15 % topical gel 1 appl topical BID 03/16/23 01/19/25 Unknown History Oxygen Home Use 06/01/23 Unknown History mexiletine 150 mg capsule 300 mg PO BID 01/10/24 01/19/25 01/21/25 History CPAP (CPAP Machine/Device) 04/24/24 Unknown History diltiazem HCl 120 mg 120 mg PO DAILY 04/24/24 01/19/25 01/21/25 History capsule,extended release 24 hr empagliflozin 10 mg tablet 10 mg PO DAILY 11/25/24 01/19/25 01/16/25 History (Jardiance) acetaminophen 650 mg 650 mg PO Q12H PRN Pain 12/15/24 01/19/25 Unknown History tablet,extended release (Tylenol Arthritis Pain) calcium citrate 250 mg PO DAILY 12/15/24 01/19/25 Unknown History cholecalciferol (vitamin D3) 25 25 mcg PO DAILY 12/15/24 01/19/25 Unknown History mcg (1,000 unit) capsule cyclobenzaprine 10 mg tablet 10 mg PO TID PRN Muscle Spasm 12/15/24 01/19/25 Unknown History gabapentin 400 mg capsule 1,200 mg PO BEDTIME 12/15/24 01/19/25 Unknown History magnesium citrate 100 mg capsule 300 mg PO DAILY 12/15/24 01/19/25 Unknown History multivitamin 1 tab PO DAILY 12/15/24 01/19/25 Unknown History acetaminophen 300 mg-codeine 30 mg 1 tab PO Q4-6H PRN pain 01/19/25 01/19/25 Unknown History tablet cyclosporine 0.05 % eye drops in a 1 drp ophthalmic (eye) BID 01/19/25 01/19/25 Unknown History dropperette (Restasis) fluticasone propionate 50 2 spray intranasal DAILY PRN 01/19/25 01/19/25 Unknown History mcg/actuation nasal Allergy Symptoms spray,suspension furosemide 20 mg tablet (Lasix) 40 mg PO DAILY edema 01/19/25 01/19/25 Unknown History Exam Height,Weight and Vital Signs: Height 5 ft 4 in Weight 79.379 kg Pertinent Lab Results Pertinent Lab Results: Laboratory Tests 09/29/24 12:15 WBC 5.4 Hgb 12.4 Hct 37.2 Plt Count 130 L Sodium 144 Potassium 3.7 Chloride 105 Carbon Dioxide 32 H BUN 17 H Creatinine 0.81 Narrative Narrative: Cardiac MRI 09/2024 IMPRESSION: 1. Normal left ventricular size and wall thickness. Globally normal left ventricular systolic function. LVEF = 65 %. No regional wall motion abnormalities. T1 mapping reveals elevated T1 values in the mid inferior and inferolateral segments, which may be due to volume averaging in the setting of cardiac motion.. No increased T2 signal to suggest myocardial edema. Post- contrast imaging demonstrates no discrete delayed myocardial enhancement. Overall, findings do not suggest infiltrative cardiomyopathy. 2. Normal right ventricular size and function. RVEF = 55 %. 3. The left atrium is severely dilated. The right atrium is normal in size. Phase contrast flow quantification suggests no significant interatrial/intracardiac shunt (Qp/Qs 1.0). 4. Trace mitral regurgitation with a regurgitant volume of about 7 mL. 5. No pericardial thickening or enhancement. Trivial pericardial effusion posteriorly. Overall, no MRI findings to suggest pericardial constriction. EKG 05/2024 NSR @ 66 ? LAE Septal infarct, age undetermined No change per manual review ECHO 05/2024 Severely dilated LA Nml LV chamber size. Nml LV wall thickness. Nml RWM. Nml LV sys function. LVEF 60-65% Nml RA size Nml RV size and function Tri-leaflet aortic valve. No aortic stenosis. No aortic insufficiency. Mild MAC. Thickened mitral valve leaflets. No mitral stenosis. Mild mitral regurg Tricuspid valve opens nml. Trace tricuspid regurg. PASP not elevated Pulmonic valve opens nml. Nml pulmonic valve function. Nml Aortic root for BSA. Nml asc aorta. Transverse aorta not well visualized. Nml pericardium without effusion. Assessment and Plan Assessment Anesthesia Assessment: Chart Reviewed Documented by User: Eamon Koch MD 01/21/25 14:53 [facility] Past Medical History Medical History Premature ventricular contraction Bradycardia SOB (shortness of breath) Palpitations Dilated cardiomyopathy Mitral regurgitation Aortic atherosclerosis Vitamin D deficiency CAD (coronary artery disease) Restless leg syndrome Migraine Nephrolithiasis Cataract Depression Hiatal hernia GERD (gastroesophageal reflux disease) Oxygen dependent On anticoagulant therapy Elevated cholesterol Atrial fibrillation HTN (hypertension) On home oxygen therapy Systolic murmur Insomnia CHF (congestive heart failure) JACKIE (obstructive sleep apnea) Asthma Pulmonary hypertension Pulmonary emboli Dyspnea Functional capacity: independent ambulation Patient : No Family History Family history of problems with anesthesia: No Surgical History Surgical History Hx of cataract extraction History of esophagogastroduodenoscopy (EGD) H/O colonoscopy Hx of lithotripsy History of total bilateral knee replacement (TKR) History of Problems with Anesthesia: No Social History Social History Are you a primary healthcare financial analyst to a significant other at home: No Do you presently have visiting nurse or other home services: No Patient Tobacco Use Status: Never used Tobacco Meds Allergies Allergy/AdvReac Type Severity Reaction Status Date / Time hydromorphone [From Dilaudid] Allergy Severe Confusion Verified 12/29/24 10:05 Sulfa Drugs Allergy Severe Rash Uncoded 12/29/24 10:05 Home Medications ?Medication ?Instructions ?Recorded ?Confirmed ?Last Taken ?Type alprazolam 0.5 mg tablet 0.5 mg PO BID PRN Anxiety 02/08/23 01/19/25 Unknown History apixaban 5 mg tablet (Eliquis) 5 mg PO BID 02/08/23 01/19/25 01/16/25 History lansoprazole 30 mg capsule,delayed 30 mg PO DAILY 02/08/23 01/19/25 01/21/25 History release levalbuterol HCl 0.63 mg/3 mL 0.63 mg inhalation DIRECTED PRN 02/08/23 01/19/25 Unknown History solution for nebulization Shortness Of Breath Or Wheezing lisinopril 20 mg tablet 20 mg PO DAILY 02/08/23 01/19/25 Unknown History nebulizers 02/08/23 Unknown History rosuvastatin 20 mg tablet 20 mg PO DAILY 02/08/23 01/19/25 Unknown History sertraline 100 mg tablet 150 mg PO DAILY 02/08/23 01/19/25 Unknown History tiotropium bromide 2.5 2 puff inhalation QAM 02/08/23 01/19/25 Unknown History mcg/actuation mist for inhalation (Spiriva Respimat) azelaic acid 15 % topical gel 1 appl topical BID 03/16/23 01/19/25 Unknown History Oxygen Home Use 06/01/23 Unknown History mexiletine 150 mg capsule 300 mg PO BID 01/10/24 01/19/25 01/21/25 History CPAP (CPAP Machine/Device) 04/24/24 Unknown History diltiazem HCl 120 mg 120 mg PO DAILY 04/24/24 01/19/25 01/21/25 History capsule,extended release 24 hr empagliflozin 10 mg tablet 10 mg PO DAILY 11/25/24 01/19/25 01/16/25 History (Jardiance) acetaminophen 650 mg 650 mg PO Q12H PRN Pain 12/15/24 01/19/25 Unknown History tablet,extended release (Tylenol Arthritis Pain) calcium citrate 250 mg PO DAILY 12/15/24 01/19/25 Unknown History cholecalciferol (vitamin D3) 25 25 mcg PO DAILY 12/15/24 01/19/25 Unknown History mcg (1,000 unit) capsule cyclobenzaprine 10 mg tablet 10 mg PO TID PRN Muscle Spasm 12/15/24 01/19/25 Unknown History gabapentin 400 mg capsule 1,200 mg PO BEDTIME 12/15/24 01/19/25 Unknown History magnesium citrate 100 mg capsule 300 mg PO DAILY 12/15/24 01/19/25 Unknown History multivitamin 1 tab PO DAILY 12/15/24 01/19/25 Unknown History acetaminophen 300 mg-codeine 30 mg 1 tab PO Q4-6H PRN pain 01/19/25 01/19/25 Unknown History tablet cyclosporine 0.05 % eye drops in a 1 drp ophthalmic (eye) BID 01/19/25 01/19/25 Unknown History dropperette (Restasis) fluticasone propionate 50 2 spray intranasal DAILY PRN 01/19/25 01/19/25 Unknown History mcg/actuation nasal Allergy Symptoms spray,suspension furosemide 20 mg tablet (Lasix) 40 mg PO DAILY edema 01/19/25 01/19/25 Unknown History Exam Airway Mallampati Class: II TM Dist: >3cm Neck ROM: Full Heart: rrr Lungs: cta Assessment and Plan Final Anesthetic Review Family History of Problems with Anesthesia: No History of Problems with Anesthesia: No NPO: Yes ASA Class: III Anesthetic Plan Anesthetic Plan: MAC: Disposition: Standard PACU
[2025-01-21] VITALS (16 sets, daily range): BP systolic 80–139; BP diastolic 37–69; PULSE 62–811; RESP 16–20; TEMP 36.1–36.9; O2SAT 93–99; BMI 30.3
--- NOTE | ~2025-01-21 | FL_ITS ---
EXAMINATION: FL GUIDANCE ONLY HISTORY: L2-3 KYPHO COMPARISON: Correlation is made with an MRI of the lumbar spine dated 12/20/2024. TECHNIQUE: Fluoroscopy time: 1.95 minutes. Cumulative Dose: 103.535 mGy. DAP: 18.423 mGym2 Images: 8. FINDINGS: Fluoroscopic spot films of the lumbar spine demonstrate kyphoplasty changes at L2 and L3. FL/FL guidance in OR IMPRESSION: Fluoroscopy during procedure. Please see procedure report for additional information. Electronically signed by: Gino Scott MD 01/22/2025 09:24 AM EDT
[2025-01-21] MEDS: Lactated Ringers 1,000 ML 100 ML IVCONT (12:54)
[2025-01-21 13:44] LABS: MRSA Nasal PCR NEGATIVE (Negative); SA Nasal PCR NEGATIVE (Negative)
--- NOTE | 2025-01-21 14:29 | MHC.SHP ---
Pre-Procedural Eval Section A - 24 Hr Update-Section A only Date of Service: 01/21/25 The patient is an INPATIENT: No Changes since office visit: Yes Patient answered all questions The patient has been examined within 24 hours of the surgical procedure. The History & Physical has been completed within 30 days and I have reviewed it.: No Section B - Complete if H&P > 30 days Chief Complaint: Other osteoporosis with current pathological fx Relevant Family History (Specify if Yes): No Relevant Social History: None Present Medications: see Short Stay Collaborative assessment Medical History: No relevant PMH History of Previous Operations: No relevant previous surgery Allergies: Allergies Allergy/AdvReac Type Severity Reaction Status Date / Time hydromorphone [From Dilaudid] Allergy Severe Confusion Verified 12/29/24 10:05 Sulfa Drugs Allergy Severe Rash Uncoded 12/29/24 10:05 Review of Systems Sugical H&P ROS: Negative: Constitution, Cardiovascular and Respiratory Exam Surgical H&P Exam: Normal: HEENT, Normal: Heart and Normal: Lungs Plan Diagnosis/Plan: Unchanged I have reviewed the history and physical and performed a pertinent physical examination on my patient. No changes have occurred unless specified. Time Spent With Patient Time: Total time managing care of this patient today ____ minutes.
--- NOTE | 2025-01-21 16:48 | W.PM.OPN ---
Operative Note Operative Note Date of Service: 01/21/25 Narrative: Preop Diagnosis: L2, L3 Osteoporotic VCF Postop Diagnosis: Same Procedure: Kyphon Balloon Kyphoplasty with Insertion of HV-R Bone Cement, L2 & L3 Vertebral Bodies The patient was brought to the operating room and sedated. The patient was positioned prone on the table. The back was prepped and draped. Two image intensifiers (C-arms) were brought into the AP and lateral positions and the L3 pedicles were identified and marked with a skin marker. A transpedicular approach to the vertebral body was deemed appropriate. A spinal needle was advanced along the expected course of the introducer up to the pedicle and the tract was anesthetized with 0.25% bupivacaine with epinephrine. A stab incision was made 2 cm lateral to the pedicle with a 15 blade. A 10-gauge bevel introducer was advanced through the L3 pedicle to the junction of the pedicle and vertebral body on the left side first. Positioning was confirmed on the AP and lateral plane at regular intervals to ensure bevel position within the cortical boundaries of the pedicle until the body of the vertebra was accessed. Following satisfactory placement of the osteointroducer, the bevel tip was removed, leaving the cannula in place, positioned approximately 1 cm past the posterior vertebral body wall. Through the cannula, a drill was advanced into the vertebral body under fluoroscopic guidance toward the anterior cortex to create a channel, stopping approximately 3-5 mm posterior to the anterior cortical wall in the lateral view and approaching the ipsilateral edge of the spinous process in the AP view. After completing the entry into the vertebral body, a 15 mm inflatable bone tamp was inserted through the cannula and advanced under fluoroscopic guidance into the vertebral body near the anterior cortex. The radiopaque marker bands on the bone tamp were identified using AP and lateral images and confirmed to be within the anterior 2/3rd of the body. . The above sequence of instrument placement was then repeated on the right side. Once both bone tamps were in position, they were inflated sequentially in increments of 0.25 to 0.5 cc of contrast, with careful attention being paid to the inflation pressures and balloon position. The inflation was monitored with AP and lateral imaging. The final balloon volume was 1 cc on the left and 2 cc on the right side. Maximum pressure applied on either side was [id number] psi. There was no breach of the lateral wall or anterior cortex of the vertebral body. Direct reduction of the fracture was achieved and end plate movement was noted. Under fluoroscopic imaging, and the use of the bone void fillers, internal fixation was achieved through a low-pressure injection of appropriately cured KYPHON HV-R methylmethacrylate bone cement. The cavity was filled with a total volume of 0.6 cc on the left side and 3 cc on the right side. No vascular, disc or spinal extravasation of the cement was noted. Once the bone cement had hardened, the bevel tip was reinserted into each of the cannulas to clear it and they were were then removed. The same process for accessing the vertebral body was then repeated at the L2 level. Once both bone tamps were in position, they were inflated sequentially in increments of 0.25 to 0.5 cc of contrast, with careful attention being paid to the inflation pressures and balloon position. The inflation was monitored with AP and lateral imaging. The final balloon volume was 3 cc on the left and 0.5 cc on the right side. Maximum pressure applied on either side was approximately 300 psi. There was no breach of the lateral wall or anterior cortex of the vertebral body. Direct reduction of the fracture was achieved and end plate movement was noted. Under fluoroscopic imaging, and the use of the bone void fillers, internal fixation was achieved through a low-pressure injection of appropriately cured KYPHON HV-R methylmethacrylate bone cement. The cavity was filled with a total volume of 3 cc on the left side and 1 cc on the right side. No vascular, disc or spinal extravasation of the cement was noted. Once the bone cement had hardened, the bevel tip was reinserted into each of the cannulas to clear it and they were were then removed. Post-procedure, the incisions were closed with 2 silk sutures. The patient was kept in the prone position for approximately 10 minutes post cement injection. She was then turned supine, extubated and brought to the PACU where she reported minimal back pain. She was able to move both her lower extremities at this time. She was subsequently discharged with postprocedure and follow-up instructions. Estimated blood loss was rougly 50 mL.
--- NOTE | 2025-01-21 16:49 | P.BOP_ITS ---
Brief Operative Note Date of Service: 01/21/25 Pre-op diagnosis: Osteoporotic vertebral compression fracture L2, L3 Post-op diagnosis: same Procedure: Kyphon Balloon Kyphoplasty with Insertion of HV-R Bone Cement, L2 and L3 Vertebral Bodies Surgeon: Ciro Chan MD Anesthesia: MAC Was an Trail Maintenance Worker used for this Procedure?: No Estimated blood loss (mL): 50 Pathology: none sent Condition: stable Disposition: PACU
[2025-01-21] MEDS: oxyCODONE HCl Immed Release 5 MG TABLET PO (17:31)
[2025-01-21] MEDS: fentaNYL citrate/PF 100 MCG/2 ML VIAL 25 MCG IVPUSH (18:00)
== END 2025-01-21 19:08 | disposition home or self-care (01) ==
PROVIDERS: Registered Nurse Emergency; PCP Internal Medicine; Visit Provider Internal Medicine
PROC: (CPT 22514; principal; 2025-01-21 13:30)
DX: M80.08XA Age-related osteoporosis with current pathological fracture, vertebra(e), initial encounter for fracture (principal); M54.50 Low back pain, unspecified; R60.9 Edema, unspecified; I48.91 Unspecified atrial fibrillation; I25.10 Atherosclerotic heart disease of native coronary artery without angina pectoris; I11.0 Hypertensive heart disease with heart failure; I50.30 Unspecified diastolic (congestive) heart failure; I27.20 Pulmonary hypertension, unspecified; G47.33 Obstructive sleep apnea (adult) (pediatric); K59.00 Constipation, unspecified; G47.00 Insomnia, unspecified; R06.00 Dyspnea, unspecified; I26.99 Other pulmonary embolism without acute cor pulmonale; Z79.01 Long term (current) use of anticoagulants; Z99.89 Dependence on other enabling machines and devices; Z79.899 Other long term (current) drug therapy; Z79.84 Long term (current) use of oral hypoglycemic drugs; Z99.81 Dependence on supplemental oxygen; Z88.2 Allergy status to sulfonamides; Z88.5 Allergy status to narcotic agent
CPT/HCPCS: 22514; 22515; 87640; 87641; C1713; J0690; J2003; J2371; J2704; J3010; Q9967

== ENCOUNTER → 2025-01-21 11:52 | Outpatient (BNV) | payer MEDICARE, OTHER, SELFPAY | PROVIDERS: PCP Internal Medicine; Visit Provider Internal Medicine | DX: M80.08XA Age-related osteoporosis with current pathological fracture, vertebra(e), initial encounter for fracture (principal) | CPT/HCPCS: 22514; 22515 ==

== ENCOUNTER 2025-01-30 09:59 | Outpatient (AMB) | payer MEDICARE, OTHER, SELFPAY ==
[2025-01-30 10:02] VITALS: BP 136/63; PULSE 96; RESP 16; O2SAT 96; BMI 29.5
--- NOTE | 2025-01-30 10:02 | MHC.OFFVIS ---
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: No Allergies hydromorphone (From Dilaudid) Allergy (Severe, Verified 02/16/25 10:06) Confusion Sulfa Drugs Allergy (Severe, Uncoded 02/16/25 10:06) Rash Medication List - Last Reconciled 01/30/25 by Kallie Triana LPN acetaminophen ER (Tylenol Arthritis Pain) 650 mg PO Q12H PRN alprazolam 0.5 mg PO BID PRN apixaban (Eliquis) 5 mg PO BID azelaic acid 15% 1 appl topical BID benzonatate 200 mg PO BID PRN 30 days calcium citrate 250 mg PO DAILY cholecalciferol (vitamin D3) 25 mcg PO DAILY CPAP (CPAP Machine/Device) As directed cyclobenzaprine 10 mg PO TID PRN cyclosporine 0.05% (Restasis) 1 drp ophthalmic (eye) BID diltiazem HCl CD 120 mg PO DAILY empagliflozin (Jardiance) 10 mg PO DAILY fluticasone propionate 50 mcg/actuation 2 sprays intranasal DAILY PRN furosemide (Lasix) 40 mg PO DAILY gabapentin 1,200 mg PO BEDTIME lansoprazole 30 mg PO DAILY levalbuterol HCl 0.63 mg inhalation DIRECTED PRN levalbuterol tartrate 45 mcg/actuation 2 inhalations inhalation Q6H PRN 30 days lisinopril 20 mg PO DAILY magnesium citrate 300 mg PO DAILY mexiletine 300 mg PO BID multivitamin 1 tab PO DAILY nebulizers As directed Oxygen Home Use As directed rosuvastatin 20 mg PO DAILY sertraline 150 mg PO DAILY tiotropium bromide 2.5 mcg/actuation (Spiriva Respimat) 2 puffs inhalation QAM trazodone 50 mg PO BEDTIME PRN 30 days HPI HPI S/p L2 and L3 Kyphoplasty 01/21/25: Details: History of Present Illness The patient is a 74-year-old female presenting with mid-back pain persisting after L2 and L3 kyphoplasty. She reports a 60% improvement in pain post-procedure, although still experiences discomfort, notably during activities such as lifting and reclining. The pain is specifically aggravated with bending over or sitting with prolonged immobility. Imaging suggests persistent complications involving T11 and L1 vertebral compression fractures. The patient's osteoporosis, previously managed with Prolia, may require a reassessment by an paper goods machine set up operator. Her determination to engage actively in her care reflects her attempt to mitigate symptoms through personal strategies such as reducing bending activities and using muscle relaxants for nocturnal relief. Pain Description - Onset: Chronic, exacerbated by L1 vertebral height loss observed during recent imaging - Quality: Persistent, aggravated by specific postures and movements - Areas: Mid-back, focused around T11 and L1 vertebrae - Exacerbating factors: Lifting objects, reclining, prolonged sitting - Relieving factors: Use of muscle relaxants in the evening - Interference: Activities involving bending, lifting, prolonged sitting, and carrying oxygen backpack Physical Exam - Incisions well healed Results - Imaging: T11 shows edema luba to L2 and L3, L1 appears more collapsed on x-ray compared to before Pain Management - Affect: Pain impacts her ability to carry out daily activities involving physical movement - Analgesia: Muscle relaxants (Cyclobenzaprine) used at night but patient foregoes Tramadol due to lack of efficacy - Adverse Effects: None reported from current medications - Activities of Daily Living: Pain restricts bending and lifting; patient uses oxygen regularly during activities - Aberrant Drug Related Behaviors: None observed; patient is compliant with prescribed analgesic regimen [facility] Medical History Premature ventricular contraction Bradycardia SOB (shortness of breath) Palpitations Dilated cardiomyopathy Mitral regurgitation Aortic atherosclerosis Vitamin D deficiency CAD (coronary artery disease) Restless leg syndrome Migraine Nephrolithiasis Cataract Depression Hiatal hernia GERD (gastroesophageal reflux disease) Oxygen dependent On anticoagulant therapy Elevated cholesterol Atrial fibrillation HTN (hypertension) On home oxygen therapy Systolic murmur Insomnia CHF (congestive heart failure) JACKIE (obstructive sleep apnea) Asthma Pulmonary hypertension Pulmonary emboli Dyspnea Surgical History Hx of cataract extraction History of esophagogastroduodenoscopy (EGD) H/O colonoscopy Hx of lithotripsy History of total bilateral knee replacement (TKR) Social History Are you a primary acute care nursing assistant to a significant other at home: No Do you presently have visiting nurse or other home services: No Patient Tobacco Use Status: Never used Tobacco Physical Exam Vital Signs: Last Vital Signs Pulse 96 01/30/25 10:02 Resp 16 01/30/25 10:02 BP 136/63 01/30/25 10:02 Pulse Ox 96 01/30/25 10:02 Oxygen Delivery Method Nasal Cannula 01/30/25 10:02 Oxygen Flow Rate 2 01/30/25 10:02 BMI result Body Mass Index 29.5 Assessment & Plan Assessment & Plan (1) Osteoporotic compression fracture of vertebra: Code(s): M80.88XA - Other osteoporosis with current pathological fracture, vertebra(e), initial encounter for fracture Category: Medical Plan Plan - Proceed with kyphoplasty scheduling for T11 and L1 for persistent pain; MAC anesthesia in next 4-6 weeks - Expedite endocrinology follow-up to address osteoporosis management, pending urgent referral status - Encourage lifestyle adjustments, avoiding heavy lifting and bending - Monitor improvements and re-evaluate kyphoplasty necessity closer to procedure date Patient was informed and verbally consented to the use of an ambient scribe for clinic note documentation during this visit. Discussion Notes During the consultation, I reviewed the patient's ongoing mid-back pain and the treatment options available. We discussed the potential for additional kyphoplasty at T11 and L1, highlighting the possible benefits of halting further compression and the expected scheduling logistics, emphasizing a need for prompt insurance approval. I communicated the urgent necessity of her endocrinology appointment to reinitiate osteoporosis therapy, ensuring that arrangements were made for her referral to [facility], recognizing their quicker appointment availability. I reviewed the limitations she should adopt in her physical activity, advising against heavy lifting and bending, and elaborated on the monitoring of her symptoms to evaluate the necessity of planned interventions. Patient Instructions - Schedule T11 and L1 kyphoplasty as planned, unless symptoms significantly improve - Follow up with endocrinology for further osteoporosis management - Avoid heavy lifting and bending to prevent further spinal issues - Continue using muscle relaxants for symptom relief as needed - Monitor symptoms and report any significant changes before the scheduled procedure Coding Level of Care Code Est Pt Level 3 (90837) Diagnoses Osteoporotic compression fracture of vertebra M80.88XA
== END 2025-01-30 10:17 | disposition home or self-care (01) ==
LOC: HO.PMC 10:00
PROVIDERS: PCP Internal Medicine; Visit Provider Internal Medicine
DX: M80.88XA Other osteoporosis with current pathological fracture, vertebra(e), initial encounter for fracture (principal)
CPT/HCPCS: 99024

== ENCOUNTER → 2025-01-30 09:59 | Outpatient (BNVA) | payer MEDICARE, OTHER, SELFPAY | PROVIDERS: PCP Internal Medicine; Visit Provider Internal Medicine | DX: M80.88XA Other osteoporosis with current pathological fracture, vertebra(e), initial encounter for fracture (principal) | CPT/HCPCS: 99212 ==

== ENCOUNTER 2025-02-16 09:58 | Outpatient (AMB) | payer MEDICARE, OTHER, SELFPAY ==
--- NOTE | 2025-02-16 10:01 | MHC.OFFVIS ---
Vital Signs 02/16/25 10:03 Height 5 ft 4 in Weight 175 lb BMI 30.0 BP 132/65 Blood Pressure Location Lt brachial Position Sitting Respiration 16 Pulse 89 Pulse Source Pulse Oximeter Pulse Oximetry (%) 94 Oxygen Delivery Method Room Air Intake Visit Reasons: Follow Up Pt. 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 Required: No Allergies hydromorphone (From Dilaudid) Allergy (Severe, Verified 02/16/25 10:06) Confusion Sulfa Drugs Allergy (Severe, Uncoded 02/16/25 10:06) Rash Medication List - Last Reconciled 02/16/25 by Kallie Triana LPN acetaminophen ER (Tylenol Arthritis Pain) 650 mg PO Q12H PRN alprazolam 0.5 mg PO BID PRN apixaban (Eliquis) 5 mg PO BID azelaic acid 15% 1 appl topical BID benzonatate 200 mg PO BID PRN 30 days calcium citrate 250 mg PO DAILY cholecalciferol (vitamin D3) 25 mcg PO DAILY CPAP (CPAP Machine/Device) As directed cyclobenzaprine 10 mg PO TID PRN cyclosporine 0.05% (Restasis) 1 drp ophthalmic (eye) BID diltiazem HCl CD 120 mg PO DAILY empagliflozin (Jardiance) 10 mg PO DAILY fluticasone propionate 50 mcg/actuation 2 sprays intranasal DAILY PRN furosemide (Lasix) 40 mg PO DAILY gabapentin 1,200 mg PO BEDTIME lansoprazole 30 mg PO DAILY levalbuterol HCl 0.63 mg inhalation DIRECTED PRN levalbuterol tartrate 45 mcg/actuation 2 inhalations inhalation Q6H PRN 30 days lisinopril 20 mg PO DAILY magnesium citrate 300 mg PO DAILY mexiletine 300 mg PO BID multivitamin 1 tab PO DAILY nebulizers As directed oxycodone 5 mg PO Q6H PRN Oxygen Home Use As directed rosuvastatin 20 mg PO DAILY sertraline 150 mg PO DAILY tiotropium bromide 2.5 mcg/actuation (Spiriva Respimat) 2 puffs inhalation QAM trazodone 50 mg PO BEDTIME PRN 30 days HPI HPI Follow Up Pt. Request: Details: History of Present Illness The patient is a 74-year-old female presenting with sternum pain and concerns related to osteopenia management. The sternum pain began after an incident involving her cat, which resulted in a scratch and subsequent pain in the chest area. The pain was severe enough to warrant a visit to urgent care and later the emergency room, where a cardiac workup was performed with no significant findings. The pain persists, especially with upper body movement, and is described as sore and discouraging. The patient has a history of osteopenia, with a bone density test in November showing improvement compared to previous results. She has been on Prolia for five years but skipped a dose, leading to a lapse in treatment for a year. The patient is awaiting an endocrinology appointment to reassess her treatment plan. The patient also has a history of a compression fracture in her back, which has contributed to her kyphosis. She reports difficulty with daily activities due to pain and has been advised to avoid carrying heavy weights on her back to prevent further fractures. Pain Description - Onset: Began after an incident involving a cat scratch. - Quality: Described as sore and discouraging. - Location: Sternum, with pain radiating across the chest and into the underarms. - Exacerbating factors: Movement of the upper body. - Interference: Affects daily activities and causes difficulty with movement. Physical Exam - Tenderness to palpation overlying the medial border of the left side. Results - Cardiac workup: No significant findings. - Bone density test: Showed improvement compared to previous results. Pain Management - Affect: Pain is discouraging and impacts mood. - Analgesia: Prescribed Oxycodone, but patient has not been taking it regularly. - Activities of Daily Living: Pain interferes with daily activities, especially lifting and carrying. - Aberrant Drug Related Behaviors: No evidence of medication misuse. [facility] Medical History Premature ventricular contraction Bradycardia SOB (shortness of breath) Palpitations Dilated cardiomyopathy Mitral regurgitation Aortic atherosclerosis Vitamin D deficiency CAD (coronary artery disease) Restless leg syndrome Migraine Nephrolithiasis Cataract Depression Hiatal hernia GERD (gastroesophageal reflux disease) Oxygen dependent On anticoagulant therapy Elevated cholesterol Atrial fibrillation HTN (hypertension) On home oxygen therapy Systolic murmur Insomnia CHF (congestive heart failure) JACKIE (obstructive sleep apnea) Asthma Pulmonary hypertension Pulmonary emboli Dyspnea Surgical History Hx of cataract extraction History of esophagogastroduodenoscopy (EGD) H/O colonoscopy Hx of lithotripsy History of total bilateral knee replacement (TKR) Social History Are you a primary career development counselor to a significant other at home: No Do you presently have visiting nurse or other home services: No Patient Tobacco Use Status: Never used Tobacco Physical Exam Vital Signs: Last Vital Signs Pulse 89 02/16/25 10:03 Resp 16 02/16/25 10:03 BP 132/65 02/16/25 10:03 Pulse Ox 94 02/16/25 10:03 Oxygen Delivery Method Room Air 02/16/25 10:03 BMI result Body Mass Index 30.0 Assessment & Plan Assessment & Plan (1) Osteoporosis: Code(s): M81.0 - Age-related osteoporosis without current pathological fracture Category: Medical (2) Osteoporotic compression fracture of vertebra: Code(s): M80.88XA - Other osteoporosis with current pathological fracture, vertebra(e), initial encounter for fracture Category: Medical Plan Plan - Continue monitoring sternum pain and consider further imaging if symptoms persist. - Await endocrinology consultation to reassess osteopenia management and Prolia treatment. - Advise against carrying heavy weights to prevent further fractures and manage kyphosis. - Consider use of lidocaine patches or diclofenac gel for sternal pain relief. - Defer further kyphoplasty until March until the patient was we will like of the chest in a prone position. Patient was informed and verbally consented to the use of an ambient scribe for clinic note documentation during this visit. Discussion Notes I discussed with the patient the importance of managing her osteopenia and the potential need for further imaging if her sternum pain persists. We talked about the upcoming endocrinology consultation to reassess her treatment plan, including the use of Prolia. I advised her to avoid carrying heavy weights to prevent further fractures and manage her kyphosis. Patient Instructions - Avoid carrying heavy weights to prevent further fractures. - Use lidocaine patches or diclofenac gel for pain relief as needed. - Follow up with endocrinology consultation as scheduled. Coding Level of Care Code Est Pt Level 3 (90608) Diagnoses Osteoporosis M81.0 Osteoporotic compression fracture of vertebra M80.88XA
[2025-02-16 10:03] VITALS: BP 132/65; PULSE 89; RESP 16; O2SAT 94
== END 2025-02-16 10:22 | disposition home or self-care (01) ==
LOC: HO.PMC 09:59
PROVIDERS: PCP Internal Medicine; Visit Provider Internal Medicine
DX: M80.88XA Other osteoporosis with current pathological fracture, vertebra(e), initial encounter for fracture (principal)
CPT/HCPCS: 99213

== ENCOUNTER → 2025-02-16 09:58 | Outpatient (BNVA) | payer MEDICARE, OTHER, SELFPAY | PROVIDERS: PCP Internal Medicine; Visit Provider Internal Medicine | DX: M80.88XA Other osteoporosis with current pathological fracture, vertebra(e), initial encounter for fracture (principal) | CPT/HCPCS: 99212 ==

== ENCOUNTER 2025-02-24 11:08 | Outpatient (REF) | payer MEDICARE, OTHER, SELFPAY ==
--- NOTE | ~2025-02-24 | XR_ITS ---
EXAMINATION: XR RIBS 4 VIEWS BILATERAL WITH PA CHEST HISTORY: R07.81 - Pleurodynia COMPARISON: Comparison is made with the prior examination of the chest dated 12/11/2023. FINDINGS: A single PA view of the chest and 3 views of the bilateral ribs are submitted. The lungs are expanded and clear. There is no pleural effusion, pneumothorax, or pulmonary vascular congestion. The heart is normal in size. The ribs are intact. No fracture is seen. The patient is status post kyphoplasty at L3 and L4. XR/XR ribs BI min 4V w CXR1V IMPRESSION: No evidence of fracture of the bilateral ribs. Electronically signed by: Gino Scott MD 02/24/2025 12:36 PM EDT
== END 2025-02-24 11:09 | disposition home or self-care (01) ==
LOC: HO.XRAY 11:08
PROVIDERS: PCP Internal Medicine; Visit Provider Hospitalist
DX: I27.20 Pulmonary hypertension, unspecified (principal); I50.9 Heart failure, unspecified; I27.82 Chronic pulmonary embolism; J45.40 Moderate persistent asthma, uncomplicated; G47.33 Obstructive sleep apnea (adult) (pediatric); M54.50 Low back pain, unspecified; R07.81 Pleurodynia; F51.01 Primary insomnia
CPT/HCPCS: 71111; 99212

== ENCOUNTER 2025-02-24 11:08 | Outpatient (AMB) | payer MEDICARE, OTHER, SELFPAY ==
[2025-02-24 11:11] VITALS: BP 116/68; PULSE 86; O2SAT 93; BMI 28.8
--- NOTE | 2025-02-24 11:11 | A.OFFVIS_ITS ---
Vital Signs 02/24/25 11:11 Height 5 ft 4 in Weight 167 lb 8.821 oz BMI 28.8 BP 116/68 Blood Pressure Location Lt brachial Position Sitting Pulse 86 Pulse Source Pulse Oximeter Pulse Oximetry (%) 93 Oxygen Delivery Method Room Air Intake Visit Reasons: Pulmonary embolism [employer] Required: No Accompanied by: Self / Same As Patient Allergies hydromorphone (From Dilaudid) Allergy (Severe, Verified 02/24/25 11:14) Confusion Sulfa Drugs Allergy (Severe, Uncoded 02/16/25 10:06) Rash HPI Comments Details: The patient is a 74 year woman who has been complaining of worsening shortness of breath for the last several years. Apparently back in 2018 the patient has significant shortness of breath and was evaluated in the hospital. She did have a full cardiac evaluation in addition to a CTA. No evidence of any blood clots at that time. The patient did have an echocardiogram demonstrating pulmonary hypertension. Because her ongoing symptoms in the pulmonary hypertension she was referred to [place] for further care. There she had a level 3 cardiopulmonary exercise tolerance test. Her pulmonary pressures increased minimally without any significant evidence of significant pulmonary hypertension. She was not placed on any medicines. She also had a full pulmon thomas function study done at that time. It appeared that a pulmonary capacity was within normal limits. Only had a mild diffusion impairment. The patient continues to have ongoing symptoms without a clear explanation. She was also started on CPAP in the meantime. Still no improvement. Then in October she was evaluated in [place] which she had a CTA demonstrating evidence of pulmonary emboli. The patient started on Eliquis. Echocardiogram afterwards demonstrated a moderate amount of pulmonary hypertension. 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 She is tolerating the anticoagulation well. She is still short of breath. During the visit we did go for 6 minutes walk test. We did go up an incline. The patient was visibly dyspneic and also she became hypoxic down to 88%. Not only that when she was hypoxic it was noted that she had more ectopy in some degree of bigeminy. Likely induced by the level of hypoxia. I we did try her on oxygen and 2 L did improve her oxygenation and her energy with activity. So therefore will go ahead and start the patient on oxygen as we try to continue to monitor and evaluate her for her ongoing dyspnea symptoms. In part we have to assess the possibility of underlying chronic thromboembolic disease. We will do further testing for this condition. 03/20/2023 the patient is here for a pulmonary follow-up visit. she continues to have significant dyspnea on exertion even with minimal activity. The oxygen supplementation has been helpful for her per in the meantime regarding her history of blood clots she is using her anticoagulation with good effect and she has good adherence. She did undergo a V/Q scan ruling out the possibility of chronic thromboembolic disease. She also has been using her CPAP regularly. Her machine had been adjusted and the overnight oximetry had improved. Will go ahead and repeat that again just to make sure. In addition to this we did review her cardiopulmonary exercise stop all rinse test which was a level 3 study done in [place]. 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 She also had excessive systemic hypertension during the study although the wedge pressure did not demonstrate any evidence of any left- sided heart failure that may have resulted in the pulmonary hypertension. Today we had her undergo a 6 minutes walk test and she still desaturating some although better than the last time that she was here. Still requires the oxygen specially to exercise. Patient did undergo pulmonary function studies and we personally reviewed. No significant obstructive nor restrictive disease although she has a low normal total lung capacity. The diffuse capacity is mildly decreased. 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 She did have an echocardiogram back in January which also demonstrated that her pulmonary pressures were elevated even at rest though. at this point the patient has pulmonary attention that appears to be symptomatic and would benefit from vasodilator therapy. 04/12/2023 the patient is here for pulmonary follow-up visit. Continues to have dyspnea on exertion moderate severity. The oxygen continues to be helpful. She continues on the Lasix 20 mg daily. She is not weighing herself daily at this time. We were trying to get her on sildenafil although her insurance denied it. We did send a prior approval for in order to get her on sildenafil for the pulmonary hypertension but they still denied it. We did review her level 3 CPET that she had about 4 years ago demonstrating exercise-induced pulmonary hypertension. Ultimately after that she ended up with the thromboembolic disease back in October 2022. We did perform a V/Q scan that was reassuring she will have another CTA ordered by her paper goods machine operator to make sure that there is no further evidence of thrombolic disease. The patient had an echocardiogram demonstrating elevated pulmonary pressures in addition to that had a brain natretic peptide was significantly elevated at 1900. Therefore, the appears to be some degree of ardiac strain. I do believe the patient will benefit from vaso-dilatory therapy for her pulmonary hypertension. At this point she will require a referral back to [place] to further address the degree of pulmonary hypertension with a repeat evaluation. Currently she is within the [facility] [employer] system therefore will go ahead and refer her to [facility]. In the meantime she will increase her Lasix to 40 mg daily for about 5 days and then she will weigh herself daily and monitor for any weight gain and she will take additional Lasix if her weight increases to a certain degree. I did give her instructions. She continues on the Eliquis and she is adherent to the therapy. She will follow-up with the paper goods machine operator regarding the thromboembolic disease and hyper hypercoagulable state. At this point it is considered to be unprovoked. Not clear if this is related to COVID or not. At this point she will follow up with paper goods machine operator for further evaluation. 06/01/2023 the patient is here for a pulmonary follow-up visit. She is feeling more drowsy during the daytime. She says that she tends to fall asleep during the day. She has decreased energy. She has been also noticing she is been needing additional oxygen. She is wondering if that is related. Explained to her that is unlikely to be her oxygen. Although will go ahead and check a venous gas to make sure that his CO2 is okay. the patient did follow-up with cardiology. Her brain natriuretic peptide was elevated. She is already on Lasix. These recommended talking to pulmonary. The patient understands that this is likely due to significant straining to the right ventricle. She was given a referral to [facility] but there is a long delay. We will call them again to see if they can move up her appointment. In the meantime we will increase her diuretics if her brain atretic peptide continues be elevated and also if she is continues to be symptomatic. she continues use the oxygen with activity. We did go for brief walking oximetry and she actually did fairly well and there was reassuring for her. I encouraged her to stay active. Also did review her CT scan of the chest PE protocol demonstrating interval resolution her blood clots and otherwise stable findings. 07/05/2023 the patient is here for a pulmonary follow-up visit. The patient overall is doing about the same. She is using her portable oxygen concentrator. The therapy has been effective providing her with better portability outside of the home. She continues with her diuresis. The lower extremity edema is overall better. The patient did have the visit with [facility] pulmonary hypertension clinic. They did go ahead and order a level 3 cardiopulmonary exercise study. Although it is not till September. The patient continues to be symptomatic therefore, I am going to speak to her cardiology team to see if we can at least do a right heart catheterization locally in to see if we can get all the answers that we need. If the right heart catheterization is not helpful then she can proceed have her level 3 CPAP. The patient continues to be more symptomatic so I do believe that the her CT hopefully can give us enough information to start her on vasodilators carole therapy if does what she needs. 11/26/2023 the patient is here for a pulmonary follow-up visit. She continues to struggle with her breathing. Although it has improved to some degree. She did follow-up in [place]. She was placed on diltiazem for significant PVCs. It appears to be helping. She also has been using her oxygen with activity, but less. She did undergo a level 3 CPET in [place]. Demonstrated that she does have pulmonary vascular disease with exercise suggesting exercise-induced pulmonary hypertension. The patient did have a repeat 6 minutes walk test today with me. We did go up 4 flights of stairs. The patient did desaturate down to 89% heart rate went up to about 130 beats per minute. Her hypoxia worsened after rested. She did take around 2-3 minutes to recover. Therefore, will continue providing her with the oxygen with activity specially as we psych where his to start pulmonary rehabilitation. The patient was prescribed sildenafil based on her exercise-induced pulmonary hypertension and I did speak to her specialist in [place] and they did agree with the intervention. Will hoping to start on sildenafil soon with the help improvement her vascular resistance with exercise and improve her hypoxia and tachycardia. I did answer all her questions. We did talk about her inhalers. She is going to try to simplify them at this time specially since she has not seen a significant improvement on the improved. 12/11/2023 the patient is here for a sick visit. The patient ultimately started on sildenafil. She is started slow in a low dose half a tablet initially and then increase to full tablet 3 times a day. She was started to feel ?funny?. She started noticing some leg swelling. Although she did make anything of it. And ultimately she started developing worsening shortness of breath in noticed that she was more hypoxic requiring oxygen more regularly. At that point she did call us and also called [facility]. They stopped the sildenafil the patient has started taking her additional diuretic. She still feels like she has not her baseline she is still using the oxygen more regularly. Therefore we had a firemen. The patient did have a chest x-ray which I personally reviewed without any overt heart failure or any pulmonary edema which is reassuring. Her blood work is also reassuring with normal cardiac enzymes and a normal brain atretic peptide where it was elevated before. In addition to that we did go for brief walking oximetry the patient did desaturate down to 88% on room air. Although she maintain her pulse ox around 91% for most of the ambulation. She did have a portable oxygen concentrator and she had been wearing it. At this point we did review her previous echocardiogram from January of 2023 demonstrating normal EF although it did mentioned about the [id number] mitral regurgitation. From wondering if this could have resulted in worsening heart failure from full the mitral valve. In addition to that we talked about diastolic dysfunction and also veno-occlusive disease that is less likely. For now though she will stop the vasodilators therapy will continue with diuretic therapy as she is responding well. Will go ahead and request a repeat echocardiogram and she should follow-up with cardiology. 01/10/2024 the patient is here for a pulmonary follow-up visit. Overall she is feeling better. She did have a follow-up with her electrophysiology physician who will start her on antiarrhythmic agent for persistent abnormal findings on her Holter monitor. I do not have those results. In addition to that she did have an echocardiogram demonstrating some degree of diastolic dysfunction and also mitral valve regurgitation. The patient is wondering why she has difficulty with the medication. We and talked about the possibility of veno- occlusive disease and also talked about the possibility of the heart not been able to tolerate the increase in the blood return after the vasodilators was provided. The patient does have a follow-up with [facility] pulmonary to see if they have any further recommendations regarding the exercise-induced pulmonary hypertension. She continues on the Eliquis for history of pulmonary emboli although her V/Q scan was very reassuring that she does not have any residual clots. Her volume status is better. She continues on diuretics. She is having some issues with leg swelling and pain. Will go ahead and request blood work. The patient follow-up in 4 months. If he has any worsening symptoms she will call for 04/24/2024 the patient is here for a pulmonary follow-up visit. The patient has been having some difficulties with her sleep. She is having some insomnia. She is using the trazodone 100 mg at nighttime. In addition to that sometimes she uses a small dose of Ativan. Although she can only get about 3-4 hours asleep. The patient also has gabapentin. She is going to start taking the gabapentin more regularly. She uses her more her pain issues. The patient has a CPAP. She is having some difficulties tolerating the CPAP because of her insomnia. We did download her data. Seems like her AHI is less than 1. her pressure settings are adequate. Her average pressure is 11 cm of water. Will go ahead and decrease her maximum pressure from 16-13 to minimize significant elevations in the pressures. From a respiratory status she is doing better after completing pulmonary rehabilitation. She also continues with diuresis. She does continue to have the oxygen. She did have COVID and she was using the oxygen more regularly then. I am hopeful that when she comes back in 2-3 months we can do 6 minute walk test and see if we can hopefully discontinue the oxygen for her. She continues with her diuretics. Will plan to follow-up 2 months. If any issues arise prior to that she will call for an earlier assessment. 08/06/2024 the patient is here for a pulmonary follow-up visit. Overall the patient feels like she is getting worse. Feels like she is having more shortness of breath. She is having to use the oxygen more. In the meantime she has been using her CPAP. The CPAP therapy has been affecting beneficial and she does use it for more than 4 hours a night. We had done an overnight oximetry before she did not need oxygen but will go ahead and repeated again to make sure specially with the issue with the pulmonary hypertension. At this point it appears that her pulmonary hypertension is more related to her stiffen left ventricle and diastolic dysfunction specially since she could not tolerate the vasodilators therapy therapy resulting in flash edema. Veno-occlusive diseases less likely specially with her very severe dilated left atrium. The patient is currently on diuretics. She was placed on torsemide for moment but she develops significant reactions to that. She is going to be following up with the congestive Heart failure Clinic at [facility] which is believe is very good option for her. I did ask her to discuss Jardiance with the team there. In the meantime she is going to continue with the oxygen with activity. She was going to have the overnight oximetry test again. The patient will undergo blood work a couple weeks and we can check her electrolytes make sure that she is tolerating the diuresis. She is also having some chest congestion some sinus congestion. Will go ahead and start her on nasal prior and also started on Singulair she had before she seemed to tolerate okay. 11/25/2024 the patient is here for pulmonary follow-up visit. The patient continues to have dyspnea on exertion. Moderate severity. Substance now she is getting shortness of breath at rest. Still continues to need oxygen primarily with activity but she has also been noticing that her oxygen drop to 88% at rest. She did follow-up with the heart failure clinic at [facility]. She is being monitored very closely. She was placed on Jardiance that she feels is working better than the Lasix. She also underwent a MRI of the heart which ruled out any intrinsic or infiltrative cardiac disease. She does have Spiriva inhaler although she stopped using it because she felt like she was taken to any medications. I did request that she can restarted been maybe as every other day medication. Her last echocardiogram was back in May demonstrating that dilated left atrium. And also the MRI also picked up the severely dilated left atrium. On my cardiac exam today the patient did have 3/6 systolic murmur best heard at the right sternal border. Seem to radiate to the clavicle. The patien t had does have a history of aortic valve disease. 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 I do believe that this may be in part affecting her cardiovascular function. She does continue with CPAP. The CPAP therapy affecting beneficial and she does use it for more than 4 hours a night. Based on the overnight oximetry the patient does benefit from oxygen with CPAP which she is using 2 L per minute with CPAP. She is having issue with the back pain. She was coughing all the sudden started developing severe back pain. She had x- rays done by primary care a [facility] which demonstrated a compression fracture. Seems like he was older although she may have a new compression fracture. She will also need to follow-up with pain management to see if we need vertebroplasty secondary to significant pain. She is also being looked at for hip replacement. At this point she should hold off until she is better before having elective surgery. 02/24/2025 the patient is here for pulmonary follow-up visit. Since we last spoke she started developing pleuritic discomfort of the chest substernal in location moderate to severe. This happened after having an incident with her cat where she had to quickly move the CAT and therefore by doing so straining herself or hurting herself causing significant pain. She was evaluated in an urgent care and she did have an x-ray. Apparently this was done a [facility]. We do not have those films. Although she was kept to make sure she did have any cardiac abnormalities more than anything else. She was discharged when she ruled out for any myocardial injury. This happened about 3 weeks so she still having significant pain although little bit better. She still has a hard time taking a deep breath in. She is on Eliquis because she has had a history of blood clots back in 2022 but those resolved therefore responding well to the Eliquis and she has not stopped the Eliquis at any point to suggest recurrent clots. Therefore will have her get a rib series and also treat her pain and her inflammation to see if they can provide some relief. If the patient continues to be uncomfortable and it if the x-rays on helpful then will go ahead and request a CT scan of the chest. In the meantime I did provide her an incentive spirometer for her to work on deep breathing exercises. She should use the oxygen to keep her pulse ox above 90%. And she is also using the CPAP at nighttime. The CPAP therapy continues to be affecting beneficial. And she does use it for more than 4 hours a night. She did have an echocardiogram scheduled but right now she will have to hold off because he has too much tenderness in costochondral area. [facility] Medical History Premature ventricular contraction Bradycardia SOB (shortness of breath) Palpitations Dilated cardiomyopathy Mitral regurgitation Aortic atherosclerosis Vitamin D deficiency CAD (coronary artery disease) Restless leg syndrome Migraine Nephrolithiasis Cataract Depression Hiatal hernia GERD (gastroesophageal reflux disease) Oxygen dependent On anticoagulant therapy Elevated cholesterol Atrial fibrillation HTN (hypertension) On home oxygen therapy Systolic murmur Insomnia CHF (congestive heart failure) JACKIE (obstructive sleep apnea) Asthma Pulmonary hypertension Pulmonary emboli Dyspnea Surgical History Hx of cataract extraction History of esophagogastroduodenoscopy (EGD) H/O colonoscopy Hx of lithotripsy History of total bilateral knee replacement (TKR) Social History Are you a primary live in caregiver to a significant other at home: No Do you presently have visiting nurse or other home services: No Patient Tobacco Use Status: Never used Tobacco Review of Systems Const Denies fever(s) Eyes Reports no additional complaints ENT Denies nasal congestion and Reports neck pain Card Reports chest pain, Reports chest pain with activity and Reports dyspnea on exertion Resp Reports pain on inspiration, Reports pain with cough, Reports dyspnea on exertion and Denies wheezing GI Reports no additional complaints Musc Reports as per HPI, Reports back pain, Reports loss of height, Reports neck pain, Reports radiating pain into limb and Reports tingling Skin/Breast Denies rash Neuro Reports no additional complaints and Reports tingling Endo Reports no additional complaints Cameron/Lymph Denies easy bleeding, Denies easy bruising and Denies lymphadenopathy Aller/Immun Denies wheezing Physical Exam Vital Signs: Last Vital Signs Pulse 86 02/24/25 11:11 BP 116/68 02/24/25 11:11 Pulse Ox 93 02/24/25 11:11 Oxygen Delivery Method Room Air 02/24/25 11:11 BMI result Body Mass Index 28.8 Const General: comfortable HEENT Head: Yes normal to inspection Neck Neck: Yes normal visual inspection Chest Chest palpation & inspection: tenderness Resp Effort & Inspection: normal respiratory effort Auscultation: clear to auscultation bilaterally Cardio Rate: regular rate Rhythm: regular rhythm Heart sounds: S1 normal heart sound present, S2 normal heart sound present and Murmur heart sound present systolic early, III/, with radiation and at the right sternal border GI Palpation (GI): Soft to palpation Skin General skin exam: no rashes or lesions noted Extrem General: Yes no clubbing, cyanosis or edema Assessment & Plan Assessment & Plan (1) Pulmonary hypertension: Comment: Likely WHO 2>3, no evidence of CTED; Did not tolerate vasodilator therapy due to cardiogenic pulmonary edema Code(s): I27.20 - Pulmonary hypertension, unspecified Category: Medical (2) CHF (congestive heart failure): Comment: HFPEF Code(s): I50.9 - Heart failure, unspecified Category: Medical Qualifiers: Heart failure chronicity: chronic Heart failure type: diastolic Qualified Code(s): I50.32 - Chronic diastolic (congestive) heart failure (3) Dyspnea: Code(s): R06.00 - Dyspnea, unspecified Category: Medical Qualifiers: Dyspnea type: dyspnea on exertion Qualified Code(s): R06.09 - Other forms of dyspnea (4) Pulmonary emboli: Comment: No evidence of CTED Code(s): I26.99 - Other pulmonary embolism without acute cor pulmonale Category: Medical Qualifiers: Acute cor pulmonale presence: unspecified Chronicity: chronic Pulmonary embolism type: other Qualified Code(s): I27.82 - Chronic pulmonary embolism (5) Asthma: Code(s): J45.909 - Unspecified asthma, uncomplicated Category: Medical Qualifiers: Asthma complication type: uncomplicated Asthma persistence: persistent Asthma severity: moderate Qualified Code(s): J45.40 - Moderate persistent asthma, uncomplicated (6) JACKIE (obstructive sleep apnea): Comment: uses cpap Code(s): G47.33 - Obstructive sleep apnea (adult) (pediatric) Category: Medical (7) Insomnia: Code(s): G47.00 - Insomnia, unspecified Category: Medical Qualifiers: Insomnia type: primary Qualified Code(s): F51.01 - Primary insomnia (8) Back pain: Code(s): M54.9 - Dorsalgia, unspecified Category: Medical Qualifiers: Back pain laterality: unspecified Back pain location: low back pain Chronicity: acute Sciatica presence: without sciatica Qualified Code(s): M54.50 - Low back pain, unspecified (9) Pleuritic chest pain: Code(s): R07.81 - Pleurodynia Category: Medical Plan Oxygen supplementation 2L/pulse with POC. Continue Eliquis BID daily weights continue CPAP therapy, adjusted 8-13 with 2L oxygen continue respiratory therapy with spiriva, ok every other day HARPAL as needed Lidoderm patch Prednisone x 5-7 days rib xray series Trazodone 150mg QHS gabapentin at night Pain referral ?vertebroplasty ECHO at [facility] to assess worsening systolic murmur, ok to postpone to after she recovers F/U 3-4 months Orders: Orders XR ribs BI min 4V w CXR1V Today R07.81 - Pleurodynia Medications: New prednisone Take 2 tabs daily x 5 days, then 1 tablet daily x 5 days 20 mg PO DAILY 5 days 5 tabs 0RF lidocaine 5% (Lidoderm) leave on most painful area for up to 12 hrs 1 patch topical DAILY 30 ea 4RF 30 days G89.12 - Acute post-thoracotomy pain codeine-guaifenesin 10-100 mg/5 mL 10 mL PO Q6H PRN 300 mL 0RF cough 10 days levalbuterol tartrate 45 mcg/actuation (Xopenex HFA) 2 puffs inhalation Q6H PRN 15 grams 11RF shortness of breath or wheezing 30 days J45.909 - Unspecified asthma, uncomplicated levalbuterol HCl 1.25 mg (3 mL) inhalation DAILY 90 mL 5RF 30 days J44.9 - Chronic obstructive pulmonary disease, unspecified Refilled benzonatate 200 mg PO BID PRN 60 caps 4RF cough 30 days Coding Level of Care Code Est Pt Level 5 (30646) Complex EM visit Add On G2211 Diagnoses Pulmonary hypertension I27.20 Chronic diastolic congestive heart failure I50.32 Heart failure chronicity: chronic Heart failure type: diastolic Dyspnea on exertion R06.09 Dyspnea type: dyspnea on exertion Other chronic pulmonary embolism, unspecified whether acute cor pulmonale present I27.82 Acute cor pulmonale presence: unspecified Chronicity: chronic Pulmonary embolism type: other Moderate persistent asthma without complication J45.40 Asthma complication type: uncomplicated Asthma persistence: persistent Asthma severity: moderate JACKIE (obstructive sleep apnea) G47.33 Primary insomnia F51.01 Insomnia type: primary Acute low back pain without sciatica, unspecified back pain laterality M54.50 Back pain laterality: unspecified Back pain location: low back pain Chronicity: acute Sciatica presence: without sciatica Pleuritic chest pain R07.81 Time Spent (min) 60
--- OUTSIDE RECORDS SUMMARY | 2025-02-24 12:14 | XMS_ITS | Clinical Summary ---
Author Organization [facility] [employer] [facility] Address [address] [facility] [place] [address] Phone Care Team Providers Care Sleeper Cutter Name Role Phone Sherice John MD Primary Care Provider [phone] Allergies Active Allergy Reactions Criticality Noted Date [...] DM ORAL) Take by mouth. Activ e empagliflozin (JARDIANCE) 10 mg tablet Take 1 tablet (10 mg total) by mouth 1 (one) time each day in the morning. 90 tablet 2 5 Active furosemide (LASIX) 40 mg tablet TAKE 1 TABLET BY MOUTH 1 TIME EACH DAY. 90 tablet 1 5 Active Active Problems Problem Noted Date [...] Continue diltiazem and mexiletine. Appreciate management from [facility] electrophysiology. 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 Fortunately her dyspnea on exertion has been stable and is not significantly interfering with her quality of life. Mild persistent asthma 02/07/2019 GERD (gastroesophageal reflux disease) 9 Encounters Date Type Department Care Team Description 01/19/2025 Telephone [facility] [address] [place] [address] Sherice John MD Medical Records 01/08/2025 Telephone [facility] [address] [place] [address] Mikal Jones MD [place] [facility] [place]/01/2024 1:30 PM EDT Office Visit [facility] [address] [place] [address] Mikal Jones MD Chronic diastolic [...] KNEE REPLACE KIDNEY STONE SURGERY 01/2017 PROCEDURE: ND NEPHROLITHOTOMY REMOVAL CALCULUS; COMMENT: Ureteroscopy/stone removal /stent [...] Description 06/23/2025 10:40 AM EST Office Visit [facility] [address] [facility] [address] [place] [address] Dante Ghotra NP [address] [place] [address] [address] [place] [address] Health Maintenance Due Date Last Done Comments Zoster Vaccines (1 of 2) 2002 DTaP,Tdap,and Td Vaccines (2 - Td or Tdap) 05/10/2022 05/10/2012 Colorectal Cancer Screening: Colonoscopy 07/29/2022 Depression Screening 07/29/2022 Falls Risk Assessment 07/29/2022 Hepatitis C Screening 07/29/2022 Medicare Annual Wellness Visit 07/29/2022 Social Influencers of Health Screening 07/29/2022 COVID-19 Vaccine ( season) 2025 07/25/2024, 12/04/2023, 05/18/2023, Additional history exists Influenza Vaccine (#1) 2025 , 05/18/2023, 06/27/2022, Additional history exists Hypertension/CHF/CAD Annual BMP Blood Test 06/25/2025 06/25/2024, 12/06/2023, 10/01/2023, Additional history exists Breast Cancer Screening 12/31/2025 01/01/2024 Cholesterol Screening (Lipid Panel) 09/07/2027 09/07/2022 Osteoporosis Screening (Bone Density Screening) 11/24/2034 11/24/2024 Pneumococcal Vaccine: 50+ Years Completed 07/14/2019, 08/24/2017 RSV Immunization Adult Patients Completed 05/21/2024 HIB [...] 44 - 121 IU/L [facility] 1 Aspartate aminotransferase (AST) 22 0 - 40 IU/L [facility] 1 Alanine Aminotransferase (ALT) 24 0 - 32 IU/L [facility] 1 06/25/2024 12:4 2 PM EST 06/25/2024 Narrative [facility] 1 - 06/26/2024 4:07 AM EST Performed at: 01 - [facility] [address] [id number] Office Manager Receptionist: Trudy Zamudio MD, Phone: [phone] us Reshma Valderrama [employer] [facility] BLOOD ORDERABLES Final R esult [facility] 1 from Last 3 Months or Most Recently Relevant to Health Maintenance Insurance MEDICARE [facility] Care Teams Sleeper Cutter Relationship Specialty Start Date End Date Sherice John MD [address] [place] [address] PCP - General Internal Medicine 01/10/19
--- OUTSIDE RECORDS SUMMARY | 2025-02-24 12:14 | XMS_ITS | Data Portability ---
Author Organization DEVENDRA Polo [facility] Address [address] [place] [address] Care Team Providers Care Appliance Installer Name Role Phone PAULINE PAULINO Referring Provider PAULINE PAULINO Primary Care Provider [phone] Assessment Encounter Date Assessment Date Assessment LastModified [...] Conservative treatment as clinically appropriate for the patient s current episode of care including, but [...] reviewed, updated, and is located in the patient s chart. PAST MEDICAL HISTORY: Past medical [...] and lucid. Normal insight, affect, and grooming. INTERNET DATABASE SPECIALIST: Gross motor coordination is intact. No [...] X-rays ordered, obtained, and reviewed today on [facility]: AP pelvis, Marking AP of the [...] to answer all of the patient's questions. [employer] speech recognition cell tower climber software was used to create portions of this document. An attempt at proofreading has been made to minimize errors. Please call for corrections. [email or web address] Not available 07/02/2024 12:38:55 11/20/2024 11/20/2024 Assessment: Patient presents with symptoms that are consistent with hip OA. Demonstrates good understanding of home program, post-operative mechanics for gait and stairs, hip kit, and expectations following surgery. Plan: Discharge patient to hip OA friendly [facility]. Follow up with patient post-operatively. Not available 11/20/2024 07:41:25 Plan of Treatment Reminders Order Date Submit Date Provider Last Modified By Organization Details Last Modified Time Details Appointments None recorded. Lab None recorded. Referral physical therapist referral - Evaluate & Rx Lumbar Stabilizati on Program/cor e 2024 025 [email or web address] [facility], [address] [facility] [address], [place], [address], 13:16:23 Procedures None recorded. Surgeries None recorded. Imaging XR, hip + pelvis, unilateral, 2 or 3 view - 206, 3 views of right hip. Dr. Reyes's protocol. 2023 024 [email or web address] [facility] Office, [address], [place], [address], 13:29:02 Medication Orders None recorded. Patient TargetsNo [...] a4ajBk vP9nXo QUaueC m3YtLR FvZlgJ JJ8mAn HZtai3 3m9512 AC0Kqa HSGVqq lKiQtr MwF INTERFACE [facility] [address], [place], [address], 07/02/2024 10:41:24 07/02/20 24 07/02/2024 XR, hip + pelvi s, unila teral , 2 or 3 view http:/ [email or web address] ?Encry pted=s hAaTro YD8dLq bEUv6g %2BXZw aYqtaq 0bqfl% 2Fg9IQ a4ajBk vP9nXo QUaueC m3YtLR FvZlgJ JJ8mAn HZtai3 9c4915 AC0Kqa HSGVqq lKiQtr MwF INTERFACE [facility] [address], [place], [address], 07/02/2024 10:41:26 11/29/19 25 11/22/2024 imagi ng inter preta tion No observ ation record ed. veto [address], [address], 12/08/2024 09:57:00 Result Notes Documentation Provider Name and Address Organization Details Recorded Time Xr, Hip + Pelvis, Unilateral, 2 Or 3 View : [email or web address]? Encrypted=tyDwQvmQU7oCbxV Uv6g%9RLCtmMwksk3fodn%2Fg 1QEw1unXtyT4kBaRKwslHp1Kv SBSjSntOFF4hIzDMeio09t031 1UI4OvxRYNPsxiEpIlrWxR Not Available [facility] 07/02/2024 10:41: 25 Xr, Hip + Pelvis, Unilateral, 2 Or 3 View : [email or web address]? Encrypted=ztFqDirCC5qJivF Uv6g%9OOEjaVqzzd3qlkt%2Fg 2YHa7yeLtbN3hTmJJeiqEe8Vt QJSaMwxWZS6nVhLWvhg80r610 0WA9LciLZVCnpcVlIzjPxT Not Available [facility] 07/02/2024 10:41: 27 Problems Name Problem SNOMED Code Status Onset Date Resolution Date Notes Provider Name and Address Organization Details Recorded Time Osteoarth ritis of right hip joint 489179739822 107 Active 2023 Tyler Reyes MD [address], [place], [address] , [facility] 19:17:41 Pain of right knee joint 269040420094 100 Active 2017 Problem Code: M25.561; Problem Code Type: ICD-10; Status: 'A'; Not Available [facility] 4 10:57:03 Pre-surge ry evaluatio n Active 2017 Problem Code: Z01.818; Problem Code Type: ICD-10; Status: 'A'; Not Available [facility] 4 10:57:03 Tear of medial meniscus of knee 390098275 Active 2017 Problem Code: S83.232A ; Problem Code Type: ICD-10; Status: 'A'; Not Available [facility] 4 10:57:03 Pain of left knee joint 432535210480 107 Active 2017 Problem Code: M25.562; Problem Code Type: ICD-10; Status: 'A'; Not Available [facility] 4 10:57:03 Idiopathi c osteoarth ritis 617968672 Active 2017 Problem Code: M17.12; Problem Code Type: ICD-10; Status: 'A'; Not Available [facility] 4 10:57:03 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 Procedures Surgical History Date Name Laterality Status Provider Name and Address Organization Details Recorded Time 5 40164 Therapeutic Exercise (1:1) completed Sophia Candelario, PT [address], [place], [address], [facility] 11/20/2024 14:49:40 5 44813: Low complexity PT Eval completed Sophia Candelario, PT [address], [place], [address], [facility] 11/20/2024 07:41:39 5 G8419 BMI Outside Normal Parameters, F/U not Documented completed Sophia Candelario, PT [address], [place], [address], [facility] 11/20/2024 07:41:20 5 G8427 Current Medication Documented completed Sophia Andree, PT [address], [place], [address], [facility] 11/20/2024 14:49:41 4 JZHip completed ANAIS Freeman-C [address], [place], [address], [facility] 02/18/2024 10:13:07 8 Knee Surgery completed KAYLIA L'HEUREUX [facility] 01/04/2024 08:47:20 Other completed KAYLIA L'HEUREUX [facility] 01/04/2024 08:47:20 Imaging Results None recorded. Procedure Notes None recorded. Medical Equipment None Reported. Allergies Allergen ID Allergen Name Allergen Category Reaction Reaction Severity Criticality Documentation Date Start Date Code Code System Note Provider Name and Address Organization Details Recorded Time 674952 Dilaudid medicatio n Not available Not available Not available 01/04/20242017 50108 3 RxNorm KAYLIA L'HEUREUX [facility] 4 08:47:17 40777 Substance with sulfonami de structure and antibacte rial mechanism of action (substanc e) medicatio n Not available Not available Not available 10/22/20232014 86939 8003 SNOMED Not Available [facility] 4 10:54:02 Medications Name Sig Start Date Stop Date Status Note LastModified by Organization Details LastModified Time cyclobenzap rine 10 mg tablet TAKE 1 TABLET (10 MG) BY MOUTH NEEDED IN THE MORNING , AT NOON, AND AT BEDTIME FOR MUSCLE SPASMS active Not Available Not Available No t Available furosemide 40 mg tablet TAKE 1 TABLET BY MOUTH 1 TIME EACH DAY. active Not Available Not Available No t Available doxycycline hyclate 100 mg capsule TAKE [...] completed Not Available Not Available Not Available hydrocodone 5 mg-acetamin ophen 325 mg tablet TAKE 1 TABLET BY MOUTH EVERY 6 HOURS NEEDED FOR MODERATE PAIN FOR UP TO 5 DAYS active Not Available Not Available No t Available lisinopril 20 mg tablet TAKE 1 TABLET BY MOUTH EVERY DAY active Not Available Not Available No t Available gabapentin 400 mg capsule TAKE 3 CAPSULES (1,200 MG) BY MOUTH AT BEDTIME. active Not Available Not Available No t Available sertraline 100 mg tablet TAKE 1 TABLET DAILY active Not Available Not Available No t Available acetaminoph en 300 mg-codeine 30 mg tablet TAKE 1 TABLET BY MOUTH 2 TIMES A DAY NEEDED FOR PAIN active Not Available Not Available No t Available tramadol 50 mg tablet TAKE 1 TABLET (50 MG) BY MOUTH EVERY 6 (SIX) HOURS IF NEEDED FOR MODERATE PAIN FOR UP TO 5 DAYS. active Not Available Not Available No [...] Not Available No t Available amoxicillin 875 mg-potassiu m clavulanate 125 mg tablet TAKE 1 [...] Not Available Not Available No t Available Journavx 50 mg tablet TAKE 1 TABLET BY MOUTH TWICE A DAY FOR 28 DAYS active Not Available Not Available No t Available Vitals Date Recorded Body height Body mass index (BMI) Body weight Provider Name and Address Organization Details Last Updated DateTime 11/20/2024 161.29 cm 31.9 kg/m2 79899.04 g Sophia Andree, PT [address] [facility] [address], [place], [address], [facility] 11/20/2024 07:41:07 Date Recorded Body height Body mass index (BMI) Body weight Provider Name and Address Organization Details Last Updated DateTime 12/02/2024 161.29 cm 31.9 kg/m2 12140.04 g CED MARTINES [facility] 12/02/2024 13:54:37 Date Recorded Body height Body mass index (BMI) Body weight Provider Name and Address Organization Details Last Updated DateTime 02/18/2024 160.02 cm 31.5 kg/m2 71186.44 g KENYA HUMPHREY [facility] 02/18/2024 09:37:15 Date Recorded Body height Body mass index (BMI) Body weight Provider Name and Address Organization Details Last Updated DateTime 03/07/2024 160.02 cm 31.5 kg/m2 08739.44 g Sofy casiano [facility] 03/07/2024 09:09:15 Date Recorded Body height Body mass index (BMI) Body weight Provider Name and Address Organization Details Last Updated DateTime 07/02/2024 161.29 cm 31.9 kg/m2 10487.04 g Juana Parker [facility] 07/02/2024 10:19:39 Social History Question Answer Notes LastModified by Organizat ion Details LastModified Time Tobacco Smoking Status Never Smoker SELENA garcia [facility] 01/04/2024 08:09:43 Have You Ever Been Counseled For Unhealthy Alcohol Use? No Information not available 01/04/2024 What Is Your Relationship Status? Information not available 01/04/2024 Sex: Unknown Functional Status Question Answer Note LastModified by Organizat ion Details LastModified Time How many times per week do you consume alcohol? 3-4 times per week Information not available 01/04/2024 Do you use any illicit or recreational drugs? No Information not available 01/04/2024 Do you or have you ever used any other forms of tobacco or nicotine? No Information not available 01/04/2024 What is your level of alcohol consumption? Occasional Information not available 01/04/2024 Do you or have you ever used e-cigarettes or vape? Never used electronic cigarettes Information not available 01/04/2024 Mental Status None recorded. Family History Nothing Reported. Medical History Condition Response Allergies/Hayfever N Coronary Artery Disease Y Breathing or lung disorders Y Anxiety/Depression Y Emphysema N Nerve Disorders Y Thyroid Problems N COPD N Pacemaker N Kidney/Bladder Problems N Anemia N Vascular Disease N Heart Trouble Y Gastrointestinal Disease N Heart Attack (CA) N Cholesterol Y Diabetes N Autoimmune disease N Bleeding Disorder N Orthotics N Arthritis Y Seizures/Epilepsy N Blood Clot N AIDS/HIV N Congestive Heart Failure (CHF) N Acid Reflux (GERD) Y Cancer N Stroke N Asthma Y Circulation Problems N Peripheral Vascular Disease N Sleep Apnea Y Hepatitis N Heart Disease N Rheumatoid Arthritis N Arrhythmia Y Pulmonary Embolism Y Headaches Y Fibromyalgia N Hypertension Y Osteoporosis Y Gynecological HistoryNo gynecological history recorded. Obstetrics History GPAL:G 0 P 0 0 0 0 Past Encounters Encounter ID Performer Location Encounter Start Date Encounter Closed Date Diagnosis/Indication Diagnosis SNOMED-CT Code Diagnosis ICD10 Code Diagnosis Note [id number] Viviane Alonso PA-C [address] [address] 01/04/2024 08:37:00 01/29/2024 15:21:34 History of right total knee replacement 1516202372 455706 Z96.651 Pain of ri ght knee joint 8505159473 82203 M25.561 Pain of ri ght hip joint 4473829913 96563 M25.551 Osteoarthr itis of right hip joint 7662557952 55717 M16.11 [id number] Viviane Alonso PA-C [facility] [address] [place] [address] 02/18/2024 09:13:47 03/17/2024 13:27:42 Osteoarthritis of right hip joint 3238584954 64750 M16.11 After a long discussion with the patient which included the risk and benefits of the procedure. The patient is interested in proceeding with ultrasound guided Right intra-phu cular hip injection. After consent was [...] questions or worsening symptoms. Follow-up as discussed [id number] Viviane Alonso PA-C [facility] [address] [place] [address] 03/07/2024 08:57:40 04/02/2024 13:13:40 Osteoarthritis of right hip joint 8562414273 17433 M16.11 reviewed in detail patient's imaging and [...] questions and concerns were addressed and answered. [id number] MD [address] [place] [address] 07/02/2024 09:40:01 07/28/2024 13:29:02 Osteoarthritis of right hip joint 0464219943 67566 M16.11 [id number] Sophia Candelario, PT [facility] on PT [address] [place] [address] 11/20/2024 08:53:31 11/20/2024 10:28:20 Osteoarthritis of right hip joint 9181222829 29701 M16.11 [id number] MARLIN NEWBERRY [address] [place] [address] 12/02/2024 13:46:30 12/12/2024 13:16:23 Low back strain 450724701 S39.012A Health Concerns Section Related Observation LastModified by Organization Detai ls LastModified Time None Recorded Concern Status LastModified by Organization Details LastModified Time None Recorded Advance Directives Directive None Recorded Payers Insurance Date Sequence Insurance Name Policy Number Policy Adan Covered Member ID Adan Member ID Guarantor Name 07/01/2024 [address] [facility] - [facility]ITICAL ACCESS [facility]OSP[facility] [place] (MEDICARE REPLACEMENT/ADV ANTAGE - HMO) Mary Delgado [id number] Mary Delgado 01/25/2025 1 [place] Mary Delgado [id number] Mary Delgado 08/26/2024 2 [employer] - SENIOR SERVICES PLAN F (MEDICARE SUPPLEMENT) [id number] Mary Delgado [id number] Mary Delgado 01/26/2025 2 CRITICAL ACCESS HOSPITAL INDEMNITY PLAN - UNICARE [id number] Mary Delgado [id number] Mary Delgado Notes Date Note Type Note Provider Name and Address Organization Details Recorded Time 02/18/2024 text/html I am seeing the patient under the general supervision of Dr. Love who was available but who did not see the patient. Thompson 73 year old female who has known diagnosis of right hip osteoarthritis. Presents today for ultrasound-guided intraarticular cortisone injection. Continues to localize pain to the medial groin. No adverse reactions or side effects from previous injections. No new fall or injury. No neurovascular changes. Viviane Alonso PA-C [address], [place], [address], [facility] 02/18/2024 10:13:37 03/07/2024 text/html I am seeing the patient under the general supervision of Dr. Love who was available but who did not see the patient. Thompson 73 year old female who has known diagnosis of right hip osteoarthritis. Presents today 2 weeks out from an [...] and lateral hip. Viviane Alonso PA-C [address], [place], [address], [facility] 03/07/2024 12:12:38 11/20/2024 text/html Patient is a [...] community distances, and pain navigating stairs. Sophia Candelario, PT [address], [place], [address], [place] [facility] 11/20/2024 14:50:36 12/02/2024 text/html I am seeing [...] compression fracture. Patient was recently seen at [facility] urgent care on 11/21/2024 where x-rays were taken. TREATMENTS: As noted in HPI Past family, medical, social history and review of systems has been reviewed, updated and signed by me and is located in the patient s chart. Examination: The patient is well appearing, [...] in lower extremity myotomes 5/5 bilaterally.Sensatio n intact.Re exes normal 2+at knee and ankle. No ankle clonus X-rays ordered, obtained at an outside facility and reviewed at [facility], 4 views of the lumbar spine reveals no instability or bony lesions. Degenerative disc disease noted most significantly at the L5-S1 region. Patient has stable L4 compression fracture noted on exam. Impression/Plan: Mechanical low back pain and SI joint pain. At this time I recommend physical therapy with lumbar and core stability patient is requesting we will orthopedics in [place]. Prescription was sent to this location. She [...] to continue Tylenol and diclofenac as needed [facility] speech recognition cell tower climber software was used to create portions of this document. An attempt at proofreading has been made to minimize errors. Please call for corrections. YAMILE BAL PA-C [address] [facility] [address], [place], [address], [facility] 12/02/2024 14:33:13 OBGyn Episode No OBEpisode recorded.
--- OUTSIDE RECORDS SUMMARY | 2025-02-24 12:14 | XMS_ITS | Clinical Summary ---
Author Organization [facility] Address [address] [place] [address] Care Team Providers Care Bank Credit Card Collection Clerk Name Role Phone Sherice John MD Primary Care Provider [phone] Allergies Active Allergy Reactions Criticality Noted Date [...] topic Insurance MEDICARE PART A & B [facility] Care Teams Bank Credit Card Collection Clerk Relationship Specialty Start Date End Date Sherice John MD [address] [place] [address] PCP - General 12/12/18
--- OUTSIDE RECORDS SUMMARY | 2025-02-24 12:14 | XMS_ITS | Encounter Summary ---
Author Organization [employer] Address [address] [facility] [address] [place] [address] Care Team Providers Care It Systems Manager Name Role Phone Sherice John MD Primary Care Provider [phone] Reason for Visit * Reason Onset Date Comments advice on back pain 12/29/2024 Encounter Details Date Type Department Care Team (Late st Contact Info) Description 12/29/2024 Telephone [facility] MEDICAL [address] [place] [address] Sherice John MD [address] [place] [address] advice on back pain Social History Tobacco Use Types Packs/Day Years Used Date Smoking Tobacco: Never Passive Smoke Exposure: Past Smokeless Tobacco: Never Alcohol Use Standard Drinks/Week Comments Yes 0 (1 standard drink = 0.6 oz pur e alcohol) Alcohol Answer Date Recorded How often do you have a drink containing alcohol ? 2 01/01/2025 How many drinks containing a lcohol do you have on a typical day when you are drinking? 0 01/01/2025 How often do you have six or more drinks on one occasion? 0 01/01/2025 Housing Stability Answer Date Recorded What is your housing situation today? I have magda hoskins 01/01/[address] you li ve. Do you have problems with any of the following? None of the above 01/01/2025 Food Insecurity Answer Date Recorded Within the past 12 months, y ou worried that your food would run out before you got money to buy more: Never True 01/01/2025 Within the past 12 months,th e food you bought just didn't last and you didn't have enough money to get more: Never True Transportation Answer Date Recorded In the past 12 months, has l ack of transportation kept you from medical appts, meetings, work or from getting things needed for daily living? No 01/01/2025 Utilities Answer Date Recorded In the past 12 months, has t he electric, gas, oil or water company threatened to shut off services in your home? No 01/01/2025 Depression Answer Date Recorded Patient Health Questionnaire-2 Score 0 12/04/2023 Internet Access Answer Date Recorded Internet Access Q1 Yes 01/01/2025 Internet Access Q2 Not on file 01/01/2025 Comments Unknown Sex and Gender Information Value Date Recorded Sex Assigned at Female 08/01/2022 12:40 PM EST Legal Sex Female 8:36 PM EDT Gender Identity Female 08/01/2022 12:40 PM EST Sexual Orientation Straight 10/04/2022 3: 13 PM EST documented as of this encounter Miscellaneous Notes * Telephone Encounter - Lanny Schneider RN - 12/29/2024 2:59 PM EDT Pt reports she saw pain management MD Chan today (see 12/15 ViS message) and was rx'd APAP withcodeine. Also will be scheduled with him for kyphoplasty. Encouraged pt to take new rx as needed and not to wait for pain to get too bad. Pt states tramdol, which PCP prescribed, has not been helpful for the pain. Advised pt to not take pain med that is not helping. Med list updated. States Dr. Chan told her to not take Prolia for now. Should see endocrinology first, as this med can be counterproductive if you take it off and on. Pt did not take Nathan dose. Pt questions hydronephrosis found on recent MRI of spine. Note has already been added to 01/01 OV note to review MRI results. Support provided to pt with longstanding back pain. * Telephone Encounter - Migdalia Jones - 12/29/2024 11:24 AM EDT Patient called stating I've been dealing with back pain for awhile and I'd like some advice on howto manage it until my appointment with [facility] on 01/01/25. Patient states she would like a call back with advice prior to appointment, thank you! documented in this encounter Plan of Treatment Upcoming Encounters Date Type Department Care Team (Late st Contact Info) Description 05/01/2025 10:00 AM EDT Office Visit [facility] MEDICAL [address] [place] [address] Sherice John MD [address] [place] [address] documented as of this encounter Visit Diagnoses Not on filedocumented in this encounter Care Teams It Systems Manager Relationship Specialty Start Date End Date Sherice John MD [address] [place] [address] PCP - General Internal Medicine 08/08/22 documented as of this encounter
== END 2025-02-24 12:21 | disposition home or self-care (01) ==
LOC: HO.HPS 11:09
PROVIDERS: PCP Internal Medicine; Visit Provider Hospitalist
DX: I27.20 Pulmonary hypertension, unspecified (principal); I50.32 Chronic diastolic (congestive) heart failure; R06.09 Other forms of dyspnea; I27.82 Chronic pulmonary embolism; J45.40 Moderate persistent asthma, uncomplicated; G47.33 Obstructive sleep apnea (adult) (pediatric); F51.01 Primary insomnia; M54.50 Low back pain, unspecified; R07.81 Pleurodynia
CPT/HCPCS: 99215; G2211

== ENCOUNTER → 2025-02-24 11:54 | Outpatient (BNV) | payer MEDICARE, OTHER, SELFPAY | PROVIDERS: PCP Internal Medicine; Visit Provider Radiology Diagnostic Radiology | DX: R07.81 Pleurodynia (principal) | CPT/HCPCS: 71111 ==

== ENCOUNTER 2025-03-11 09:00 | Outpatient (AMB) | payer MEDICARE, OTHER, SELFPAY ==
--- NOTE | 2025-03-11 09:07 | HO.NEPHOV ---
Vital Signs 03/11/25 09:12 Height 5 ft 4 in Weight 171 lb 8 oz BMI 29.4 BP 110/70 Blood Pressure Location Rt brachial Position Sitting Pulse 76 Pulse Source Pulse Oximeter Pulse Oximetry (%) 93 Oxygen Delivery Method Room Air Intake Visit Reasons: Hydronephrosis-Conf Operating Room Coordinator Required: No Accompanied by: Self / Same As Patient Allergies hydromorphone (From Dilaudid) Allergy (Severe, Verified 03/11/25 09:11) Confusion Sulfa Drugs Allergy (Severe, Uncoded 02/16/25 10:06) Rash HPI Comments Details: I had the pleasure of seeing in consultation for hydronephrosis. She is a 74 year woman who has H/O shortness of breath for the last several years who a full cardiac evaluation in addition to seeing a pulmonary physician regularly. She had an echocardiogram demonstrating pulmonary hypertension for which she was seen in [place] for further care. She was later found to have pulmonary emboli. She also had been on CPAP. The patient started on Eliquis. Echocardiogram afterwards demonstrated a moderate amount of pulmonary hypertension. She also has been having back issues for which she had undergone MRI of the back which showed B/L hydronephrosis. She has no flank pain, recurrent UTI, hematuria, renal dysfunction, H/O UPJ obstruction, symptoms suggestive of renal calculi ( Has H/O renal calculi) or proteinuria. Her BP has been at goal. [facility] Medical History Premature ventricular contraction Bradycardia SOB (shortness of breath) Palpitations Dilated cardiomyopathy Mitral regurgitation Aortic atherosclerosis Vitamin D deficiency CAD (coronary artery disease) Restless leg syndrome Migraine Nephrolithiasis Cataract Depression Hiatal hernia GERD (gastroesophageal reflux disease) Oxygen dependent On anticoagulant therapy Elevated cholesterol Atrial fibrillation HTN (hypertension) On home oxygen therapy Systolic murmur Insomnia CHF (congestive heart failure) JACKIE (obstructive sleep apnea) Asthma Pulmonary hypertension Pulmonary emboli Dyspnea Surgical History Hx of cataract extraction History of esophagogastroduodenoscopy (EGD) H/O colonoscopy Hx of lithotripsy History of total bilateral knee replacement (TKR) Social History Are you a primary healthcare corporate account director to a significant other at home: No Do you presently have visiting nurse or other home services: No Patient Tobacco Use Status: Never used Tobacco Review of Systems Const All systems reviewed & are unremarkable except as noted in HPI and below Physical Exam Vital Signs: Last Vital Signs Pulse 76 03/11/25 09:12 BP 110/70 03/11/25 09:12 Pulse Ox 93 03/11/25 09:12 Oxygen Delivery Method Room Air 03/11/25 09:12 BMI result Body Mass Index 29.4 Const General: comfortable and no acute distress Orientation/consciousness: patient oriented x3 HEENT Head: Yes normocephalic Mouth: Normal oral and palatal mucosa present Eyes EOM: EOMs intact bilaterally Neck Neck: Yes supple Resp Auscultation: clear to auscultation bilaterally Cardio Jugular venous distension: no JVD Rate: regular rate GI Palpation (GI): Soft to palpation Auscultation: normal bowel sounds General: Yes no CVA tenderness Back/Spine/Pelvis Back: no CVA tenderness Skin General skin exam: no rashes or lesions noted Neuro General: patient oriented x3 and moves all extremities Extrem General: Yes no pedal edema Assessment & Plan Assessment & Plan (1) Hydronephrosis: Code(s): N13.30 - Unspecified hydronephrosis Category: Medical Qualifiers: Hydronephrosis type: unspecified Qualified Code(s): N13.30 - Unspecified hydronephrosis Plan Has incidental finding of B/L hydronephrosis No H/O pelvic tumors or neurogenic bladder No H/O flank pain, hematuria, proteinuria Known to have hypertension but controlled No H/O UPJ obtruction, PKD, Diabetic Kidney disease No reason to suspect inflitrative renal disease Renal function normal. USS/Labs ordered Differential diagnosis discussed Answered all questions and F/U given Orders: Orders Electrolytes 03/11/25 N13.30 - Unspecified hydronephrosis Blood Urea Nitrogen 03/11/25 N13.30 - Unspecified hydronephrosis US renal BI 1 Month N13.30 - Unspecified hydronephrosis Creatinine 03/11/25 N13.30 - Unspecified hydronephrosis Coding Level of Care Code New Pt Level 4 (95415) Diagnoses Hydronephrosis, unspecified hydronephrosis type N13.30 Hydronephrosis type: unspecified
[2025-03-11 09:12] VITALS: BP 110/70; PULSE 76; O2SAT 93; BMI 29.4
--- OUTSIDE RECORDS SUMMARY | 2025-03-11 09:29 | XMS_ITS | Encounter Summary ---
Author Organization [employer] Address [address] [facility] [address] [place] [address] Care Team Providers Care Senior Technical Architect Name Role Phone Sherice John MD Primary Care Provider [phone] Reason for Visit * Reason Onset Date Comments advice on back pain 12/29/2024 Encounter Details Date Type Department Care Team (Late st Contact Info) Description 12/29/2024 Telephone [facility] MED[facility] [address] [place] [address] Sherice John MD [address] [place] [address] advice on back pain Social History Tobacco [...] pain management MD Chan today (see 12/15 [employer] message) and was rx'd APAP withcodeine. Also [...] Description 05/01/2025 10:00 AM EDT Office Visit [facility] MED[facility] [address] [place] [address] Sherice John MD [address] [place] [address] documented as of this encounter Visit Diagnoses Not on filedocumented in this encounter Care Teams Senior Technical Architect Relationship Specialty Start Date End Date Sherice John MD [address] [place] [id number] PCP - General Internal Medicine 08/08/22 documented as of this encounter
--- OUTSIDE RECORDS SUMMARY | 2025-03-11 09:30 | XMS_ITS | Encounter Summary ---
Author Organization [facility] Address [address] [place] [phone] Phone Care Team Providers Care Elementary [employer] Music Teacher Name Role Phone Sherice John MD Primary Care Provider Deya Sotelo MD Unavailable Joni Deleon MD Unavailable Mikal Jones MD Unavailable [phone] Lulú Vizcaino Unavailable [phone] Encounter Details Date Type Department Care Team (Late st Contact Info) Description 12/15/2020 Ancillary Orders [facility],Outside Imaging [address] [place], [place] [id number] System, Provider Not In, [facility] [address] [address] Social History Tobacco Use Types Packs/Day Years Used Date Smoking Tobacco: Never Smokeless Tobacco: Never Alcohol Use Standard Drinks/Week Comments Yes 0 (1 standard drink = 0.6 oz pur e alcohol) Comments Unknown Sex and Gender Information Value [...] PM EDT Office Visit [facility] [address] [place] [address] Rogelio Torrez DO [address] [place] [address] [email or web address] 12/10/2025 10:40 AM EDT Appointment [facility] [address] [place] [address] Lulú Vizcaino MBBS [address] [place] [address] [email or web address] 12/10/2025 11:40 AM EDT Office Visit [facility] [address] [place] [address] Lulú Vizcaino MBBS [address] [place] [address] [email or web address] 03/03/2026 8:30 AM EDT Telemedicine [facility] Cardiac Arrhythmia Service [address] [facility], 5th Floor, [address] [place] [address] Angel Domínguez MD [address] [facility] [place] [address] [email or web address] documented as of this encounter Results * Mammogram Outside (No Interpretation) (08/27/2019 12:00 AM EST) Narrative SYSTEMGENERATED, DOCUMENTATION - 12/15/2020 8:16 AM EDT This study is for PACS storage only and not for interpretation. us Provider Not In System PhD IMG OUTSIDE IMAGING W /OUT INTERPRETATION Final Result * Mammogram Outside (No Interpretation) (07/24/2018 12:00 AM EST) Narrative SYSTEMGENERATED, DOCUMENTATION - 12/15/2020 8:17 AM EDT This study is for PACS storage only and not for interpretation. us Provider Not In System PhD IMG OUTSIDE IMAGING W /OUT INTERPRETATION Final Result * Mammogram Outside (No Interpretation) (06/07/2017 12:00 AM EDT) Narrative SYSTEMGENERATED, DOCUMENTATION - 12/15/2020 8:17 AM EDT This study is for PACS storage only and not for interpretation. us Provider Not In System PhD IMG OUTSIDE IMAGING W /OUT INTERPRETATION Final Result * Mammogram Outside (No Interpretation) (05/29/2016 12:00 AM EDT) Narrative SYSTEMGENERATED, DOCUMENTATION - 12/15/2020 8:18 AM EDT This study is for PACS storage only and not for interpretation. us Provider Not In System PhD IMG OUTSIDE IMAGING W /OUT INTERPRETATION Final Result * Mammogram Outside (No Interpretation) (05/11/2015 12:00 AM EDT) Narrative SYSTEMGENERATED, DOCUMENTATION - 12/15/2020 8:18 AM EDT This study is for PACS storage only and not for interpretation. us Provider Not In System PhD IMG OUTSIDE IMAGING W /OUT INTERPRETATION Final Result documented in this encounter Visit Diagnoses Not on filedocumented in this encounter Additional Health Concerns Infection Onset Date Last Indicated Resolved Time CoV-Risk 03/13/2021 03/13/2021 03/23/2021 1:23 AM EDT CoV-Risk 05/27/2021 05/27/2021 06/06/2021 1:23 AM EDT CoV-Risk 06/16/2021 06/16/2021 06/26/2021 1:22 AM EDT CoV-Risk 07/04/2022 07/04/2022 07/15/2022 4:44 AM EST CoV-Risk 10/12/2022 10/12/2022 10/23/2022 1:22 AM EST CoV-Risk 10/25/2022 10/25/2022 11/05/2022 1:22 AM EDT CoV-Risk 11/24/2022 11/24/2022 12/05/2022 1:22 AM EDT documented as of this encounter Care Teams Elementary [employer] Music Teacher Relationship Specialty Start Date End Date Sherice John MD [address] [place] [address] [email or web address] PCP - General Internal Medicine 03/08/18 Deya Sotelo MD [address] [address] [email or web address] Primary Oncologist Hematology and Oncology 11/27/2211/18 Joni Deleon MD [address] [place] [address] [place] [address] Pulmonary Disease 07/18/23 Mikal Jones MD [address] [facility] [address] [place] [address] Cardiology 07/23/23 Lulú Vizcaino MBBS [address] [facility] [address] [place] [address] [email or web address] Primary Oncologist Medical Oncology 11/29/23 documented as of this encounter Additional Source Comments The information contained in this document represents components of the legal health record. It is not the complete legal health record.[facility]
--- OUTSIDE RECORDS SUMMARY | 2025-03-11 09:30 | XMS_ITS | Clinical Summary ---
Author Organization [facility] Address [address] [place] [address] Phone Care Team Providers Care Hand Printed Circuit Board Assembler Name Role Phone Sherice John MD Primary Care Provider [phone] Allergies Active Allergy Reactions Criticality Noted Date [...] Continue diltiazem and mexiletine. Appreciate management from [facility] electrophysiology. Seasonal allergies 11/07/2022 Moderate persistent asthma [...] defer management of this issue to her rn admit. Fortunately her dyspnea on exertion has been stable and is not significantly interfering with her quality of life. Mild persistent asthma 02/07/2019 GERD (gastroesophageal reflux disease) 9 Encounters Date Type Department Care Team Description 01/19/2025 Telephone [facility] [address] [place] [address] [address] [place] [address] Sherice John MD Medical Records 01/08/2025 Telephone [facility] [address] [place] [address] Mikal Jones MD Call from [facility] from Last 3 Months Immunizations Name Administration [...] KNEE REPLACE KIDNEY STONE SURGERY 01/2017 PROCEDURE: MO NEPHROLITHOTOMY REMOVAL CALCULUS; COMMENT: Ureteroscopy/stone removal /stent [...] Description 06/23/2025 10:40 AM EST Office Visit [facility] [address] [place] [address] CycDante feng NP [address] [place] [address] [address] [place] [address] Health Maintenance Due Date Last Done Comments Zoster Vaccines (1 of 2) 2002 DTaP,Tdap,and Td Vaccines (2 - Td or Tdap) 05/10/2022 05/10/2012 Colorectal Cancer Screening: Colonoscopy 07/29/2022 Falls Risk Assessment 07/29/2022 Hepatitis C Screening 07/29/2022 Medicare Annual Wellness Visit 07/29/2022 Social Influencers of Health Screening 07/29/2022 Depression Screening 08/20/2024 COVID-19 Vaccine ( season) 2025 07/25/2024, 12/04/2023, [...] AM EST Performed at: 01 - [facility] [address] [id number] Oyster Preparer: Trudy Zamudio MD, Phone: [phone] us Reshma Valderrama MANUFACTURING AREA MANAGER LAB BLOOD ORDERABLES Final R esult [facility] 1 from Last 3 Months or Most Recently Relevant to Health Maintenance Insurance MEDICARE [facility] Care Teams Hand Printed Circuit Board Assembler Relationship Specialty Start Date End Date Sherice John MD [address] [place] [address] PCP - General Internal Medicine 01/10/19
--- OUTSIDE RECORDS SUMMARY | 2025-03-11 09:30 | XMS_ITS | Clinical Summary ---
Author Organization [facility] Address [address] [place] [address] Care Team Providers Care Inspector Machined Parts Name Role Phone Sherice John MD Primary Care Provider [phone] Allergies Active Allergy Reactions Criticality Noted Date [...] topic Insurance MEDICARE PART A & B [facility] COMMERCIAL Care Teams Inspector Machined Parts Relationship Specialty Start Date End Date Sherice John MD [address] [place] [address] PCP - General 12/12/18
--- OUTSIDE RECORDS SUMMARY | 2025-03-11 09:30 | XMS_ITS | Data Portability ---
Author Organization DEVENDRA Polo [facility], [facility] Address [address] [place] [address] Care Team Providers Care Client Care Specialist Name Role Phone PAULINE PAULINO Referring Provider [phone] PAULINE PAULINO Primary Care Provider Assessment Encounter [...] and lucid. Normal insight, affect, and grooming. 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 No spasticity [...] X-rays ordered, obtained, and reviewed today on [facility] PACS: AP pelvis, Marking AP of the [...] to answer all of the patient's questions. [employer] speech recognition cylinder die machine helper software was used to create portions of this document. An attempt at proofreading has been made to minimize errors. Please call for corrections. [email or web address] Not available 07/02/2024 12:38:55 11/20/2024 11/20/2024 Assessment: Patient presents with symptoms that are consistent with hip OA. Demonstrates good understanding of home program, post-operative mechanics for gait and stairs, hip kit, and expectations following surgery. Plan: Discharge patient to hip OA friendly [facility]. Follow up with patient post-operatively. [email or web address] Not available 11/20/2024 07:41:25 Plan of Treatment Reminders Order Date Submit Date Provider Last Modified By Organization Details Last Modified Time Details Appointments None recorded. Lab None recorded. Referral physical therapist referral - Evaluate & Rx Lumbar Stabilizati on Program/cor e 2024 025 [facility], [address] [facility] [address], [place], [address], 13:16:23 Procedures None recorded. Surgeries None recorded. Imaging XR, hip + pelvis, unilateral, 2 or 3 view - 206, 3 views of right hip. Dr. Reyes's protocol. 2023 024 [facility] Office, [address], [place], [address], 13:29:02 Medication Orders None recorded. Patient TargetsNo [...] a4ajBk vP9nXo QUaueC m3YtLR FvZlgJ JJ8mAn HZtai3 [id number] AC0Kqa HSGVqq lKiQtr MwF INTERFACE [facility] Office [address], [place], [address], 07/02/2024 10:41:24 07/02/20 24 07/02/2024 XR, hip + pelvi s, unila teral , 2 or 3 view http:/ [email or web address] ?Encry pted=s hAaTro YD8dLq bEUv6g %2BXZw aYqtaq 0bqfl% 2Fg9IQ a4ajBk vP9nXo QUaueC m3YtLR FvZlgJ JJ8mAn HZtai3 5b8726 AC0Kqa HSGVqq lKiQtr MwF INTERFACE [facility] Office [address] [facility] [address], [place], [address], 07/02/2024 10:41:26 11/29/19 25 11/22/2024 imagi ng inter preta tion No observ ation record ed. veto [address], [place], [address], 12/08/2024 09:57:00 Result Notes Documentation Provider Name and Address Organization Details Recorded Time Xr, Hip + Pelvis, Unilateral, 2 Or 3 View : [email or web address]? Encrypted=fkGfEmyJJ0yKbfO Uv6g%3JXJkhOxovd9iext%2Fg 0DMf4gqCuoV8rLpPNixvDn0Wt ZMQbUhoSEM9mQuDGawk20h238 2FS0JubWBMInrrVuPilVbW Not Available [facility] 07/02/2024 10:41: 25 Xr, Hip + Pelvis, Unilateral, 2 Or 3 View : [email or web address] Encrypted=nuFpAoaHA9nJlgL Uv6g%1XIQvoOvpuf0zarn%2Fg 4CRj6wmFqzD5rSlPFjisTh4Qt HGSsExdEUM2sNpFUwii37y877 4HX9YryIIBUjnyPqMtbKqZ Not Available [facility] 07/02/2024 10:41: 27 Problems Name Problem SNOMED Code Status Onset Date Resolution Date Notes Provider Name and Address Organization Details Recorded Time Pain of right knee joint 378591258274 100 Active 2017 Problem Code: M25.561; Problem Code Type: ICD-10; Status: 'A'; Not Available [facility] 10:57:03 Pre-surge ry evaluatio n Active 2017 Problem Code: Z01.818; Problem Code Type: ICD-10; Status: 'A'; Not Available [facility] 4 10:57:03 Tear of medial meniscus of knee 719945876 Active 2017 Problem Code: S83.232A ; Problem Code Type: ICD-10; Status: 'A'; Not Available [facility] 4 10:57:03 Pain of left knee joint 256060311680 107 Active 2017 Problem Code: M25.562; Problem Code Type: ICD-10; Status: 'A'; Not Available [facility] 4 10:57:03 Idiopathi c osteoarth ritis 961225693 Active 2017 Problem Code: M17.12; Problem Code Type: ICD-10; Status: 'A'; Not Available [facility] 4 10:57:03 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 Procedures Surgical History Date Name Laterality Status Provider Name and Address Organization Details Recorded Time 5 16966 Therapeutic Exercise (1:1) completed Sophia Candelario, PT [address], [place], [address], [facility] 11/20/2024 14:49:40 5 75584: Low complexity PT Eval completed Sophia Candelario, PT [address], [place], [address], [facility] 11/20/2024 07:41:39 5 G8419 BMI Outside Normal Parameters, F/U not Documented completed Sophia Candelario, PT [address], [place], [address], [facility] 11/20/2024 07:41:20 5 G8427 Current Medication Documented completed Sophia Andree, PT [address], [place], [address], [facility] 11/20/2024 14:49:41 4 JZHip completed ANAIS Freeman-C [address], [place], [address], [facility] 02/18/2024 10:13:07 8 Knee Surgery completed KAYLIA L'HEUREUX [facility] 01/04/2024 08:47:20 Other completed KAYLIA L'HEUREUX [facility] 01/04/2024 08:47:20 Imaging Results None recorded. Procedure Notes None recorded. Medical Equipment None Reported. Allergies Allergen ID Allergen Name Allergen Category Reaction Reaction Severity Criticality Documentation Date Start Date Code Code System Note Provider Name and Address Organization Details Recorded Time 562059 Dilaudid medicatio n Not available Not available Not available 01/04/20242017 19575 3 RxNorm KAYLIA L'HEUREUX [facility] 4 08:47:17 54078 Substance with sulfonami de structure and antibacte rial mechanism of action (substanc e) medicatio n Not available Not available Not available 10/22/20232014 00536 8003 SNOMED Not Available [facility] 4 10:54:02 Medications Name Sig Start Date [...] Updated DateTime 11/20/2024 161.29 cm 31.9 kg/m2 60429.04 g Sophia Andree, PT [address] [facility] [address], [place], [address], [facility] 11/20/2024 07:41:07 Date Recorded Body height Body mass index (BMI) Body weight Provider Name and Address Organization Details Last Updated DateTime 12/02/2024 161.29 cm 31.9 kg/m2 90436.04 g CED MARTINES [facility] 12/02/2024 13:54:37 Date Recorded Body height Body mass index (BMI) Body weight Provider Name and Address Organization Details Last Updated DateTime 02/18/2024 160.02 cm 31.5 kg/m2 63751.44 g KENYA HUMPHREY [facility] 02/18/2024 09:37:15 Date Recorded Body height Body mass index (BMI) Body weight Provider Name and Address Organization Details Last Updated DateTime 03/07/2024 160.02 cm 31.5 kg/m2 71715.44 g Sofy casiano [facility] 03/07/2024 09:09:15 Date Recorded Body height Body mass index (BMI) Body weight Provider Name and Address Organization Details Last Updated DateTime 07/02/2024 161.29 cm 31.9 kg/m2 66068.04 g Juana Parker [facility] 07/02/2024 10:19:39 Social History Question Answer Notes LastModified by Organizat ion Details LastModified Time Tobacco Smoking Status Never Smoker SELENA garcia [facility] 01/04/2024 08:09:43 Have You Ever Been [...] History Nothing Reported. Medical History Condition Response Coronary Artery Disease Y Anxiety/Depression Y Emphysema N COPD N Pacemaker N Vascular Disease N Heart Trouble Y Gastrointestinal Disease N Autoimmune disease N Orthotics N Arthritis Y Blood Clot N Acid Reflux (GERD) Y Cancer N Stroke N Circulation Problems N Rheumatoid Arthritis N Arrhythmia Y Headaches Y Fibromyalgia N Allergies/Hayfever N Breathing or lung disorders Y Nerve Disorders Y Thyroid Problems N Kidney/Bladder Problems N Anemia N Heart Attack (VA) N Cholesterol Y Diabetes N Bleeding Disorder N Seizures/Epilepsy N AIDS/HIV N Congestive Heart Failure (CHF) N Asthma Y Peripheral Vascular Disease N Sleep Apnea Y Hepatitis N Heart Disease N Pulmonary Embolism Y Hypertension Y Osteoporosis Y Gynecological HistoryNo gynecological history recorded. Obstetrics History GPAL:G 0 P 0 0 0 0 Past Encounters Encounter ID Performer Location Encounter Start Date Encounter Closed Date Diagnosis/Indication Diagnosis SNOMED-CT Code Diagnosis ICD10 Code Diagnosis Note [id number] Viviane Alonso PA-C [address] [address] 01/04/2024 08:37:00 01/29/2024 15:21:34 History of right total knee replacement 0843135126 061696 Z96.651 Pain of ri ght knee joint 8943461549 90517 M25.561 Pain of ri ght hip joint 4422825704 92537 M25.551 Osteoarthr itis of right hip joint 4934564965 55152 M16.11 [id number] Viviane Alonso PA-C [facility] [address] [place] [address] 02/18/2024 09:13:47 03/17/2024 13:27:42 Osteoarthritis of right hip joint 2218754683 03629 M16.11 After a long discussion with the [...] questions or worsening symptoms. Follow-up as discussed [id number] Viviane Alonso PA-C [facility] [address] [place] [address] 03/07/2024 08:57:40 04/02/2024 13:13:40 Osteoarthritis of right hip joint 8849106386 00955 M16.11 reviewed in detail patient's imaging and [...] questions and concerns were addressed and answered. [id number] MD [address] [place] [place] [address] 07/02/2024 09:40:01 07/28/2024 13:29:02 Osteoarthritis of right hip joint 6013831095 25902 M16.11 [id number] Sophia Candelario, PT [facility] on PT [address] [place] [address] 11/20/2024 08:53:31 11/20/2024 10:28:20 Osteoarthritis of right hip joint 9785479089 81685 M16.11 [id number] MARLIN NEWBERRY [address] [place] [address] 12/02/2024 13:46:30 12/12/2024 13:16:23 Low back strain 992228546 S39.012A Health Concerns Section Related Observation LastModified by Organization Detai ls LastModified Time None Recorded Concern Status LastModified by Organization Details LastModified Time None Recorded Advance Directives Directive None Recorded Payers Insurance Date Sequence Insurance Name Policy Number Policy Adan Covered Member ID Adan Member ID Guarantor Name 07/01/2024 1 [facility] (MEDICARE REPLAC[place]/ADV ANTAGE - HMO) Mary Delgado [id number] Mary Delgado 01/25/2025 1 [place] Mary Delgado [id number] Mary Delgado 08/26/2024 2 [employer] - SENIOR SERVICES PLAN F (MEDICARE SUPPLEMENT) [id number] Mary Delgado [id number] Mary Delgado 01/26/[address] [facility] INDEMNITY PLAN - UNICARE [id number] Mary Delgado [id number] Mary Delgado Notes Date Note Type Note [...] No neurovascular changes. Viviane Alonso PA-C [address], [place], [address], [facility] 02/18/2024 10:13:37 03/07/2024 text/html I am [...] and lateral hip. Viviane Alonso PA-C [address], [place], [address], [facility] 03/07/2024 12:12:38 11/20/2024 text/html Patient is [...] pain navigating stairs. Sophia Candelario, PT [address], [place], [address], [place] [facility] 11/20/2024 14:50:36 12/02/2024 text/html [...] compression fracture. Patient was recently seen at [facility] urgent care on 11/21/2024 where x-rays [...] at an outside facility and reviewed at [facility], 4 views of the lumbar spine reveals no instability or bony lesions. Degenerative disc disease noted most significantly at the L5-S1 region. Patient has stable L4 compression fracture noted on exam. Impression/Plan: Mechanical low back pain and SI joint pain. At this time I recommend physical therapy with lumbar and core stability patient is requesting we will orthopedics in [place]. Prescription was sent to this location. She [...] to continue Tylenol and diclofenac as needed [facility] speech recognition cylinder die machine helper software was used to create portions of this document. An attempt at proofreading has been made to minimize errors. Please call for corrections. YAMILE BAL PA-C [address] [facility] [address], [place], [address], [facility] 12/02/2024 14:33:13 OBGyn Episode No OBEpisode recorded.
== END 2025-03-11 09:47 | disposition home or self-care (01) ==
LOC: HO.HKA 09:01
PROVIDERS: PCP Internal Medicine; Visit Provider Internal Medicine Nephrology
DX: N13.30 Unspecified hydronephrosis (principal)
CPT/HCPCS: 99204

== ENCOUNTER → 2025-03-11 09:00 | Outpatient (BNVA) | payer MEDICARE, OTHER, SELFPAY | PROVIDERS: PCP Internal Medicine; Visit Provider Internal Medicine Nephrology | DX: N13.30 Unspecified hydronephrosis (principal) | CPT/HCPCS: 99202 ==

== ENCOUNTER 2025-04-06 14:53 | Emergency (ER) | payer MEDICARE, OTHER, SELFPAY ==
--- NOTE | ~2025-04-06 | XR_ITS ---
EXAMINATION: XR CHEST CLINICAL INFORMATION: shortness of breath COMPARISON: December 11, 2023. TECHNIQUE: 2 views of the chest were obtained. FINDINGS: Linear opacity left hemithorax. Pulmonary reticular pattern. No gross consolidation, pleural effusion or pneumothorax. Cardiomediastinal silhouette size is normal. Calcified plaque thoracic aorta. Multilevel thoracic and lumbar spondylosis. Wedge-shaped compression deformity representing 70% volume loss in the upper to mid thoracic spine. Radiopaque material in the upper lumbar spine. Multilevel superior endplate compression deformities in the lower thoracic spine vertebral bodies. Questionable calcifications in the subcoracoid dorsalis shoulder.. XR/XR chest 2V IMPRESSION: No acute airspace disease. Probable interstitial lung disease. Subacute to old compression deformities throughout the axial skeleton slightly worsened since prior examination. Is the patient's symptoms complaining for back pain recommend dedicated CT thoracic spine. Kyphoplasty/vertebroplasty procedure in the upper lumbar spine. Electronically signed by: Adams Virk MD 04/06/2025 03:29 PM EDT
--- NOTE | 2025-04-06 14:55 | ECG_ITS ---
Test Reason : SOB Blood Pressure : */* mmHG Vent. Rate : 70 BPM Atrial Rate : 70 BPM P-R Int : 136 ms QRS Dur : 72 ms QT Int : 384 ms P-R-T Axes : 37 9 37 degrees QTcB Int : 414 ms Normal sinus rhythm Possible Left atrial enlargement Anteroseptal infarct , age undetermined Abnormal ECG No previous ECGs available Referred By: Generic ED Physician Electronically Signed By: ELIZABETH DAWSON MD
[2025-04-06 14:58] VITALS: BP 134/70; PULSE 73; RESP 16; TEMP 36.7; O2SAT 95; BMI 29.0
--- NOTE | 2025-04-06 14:58 | ED.GENADULT ---
HPI - General Adult General Chief complaint: Dyspnea Stated complaint: sob, confused Related Data Home Medications ?Medication ?Instructions ?Recorded ?Confirmed alprazolam 0.5 mg tablet 0.5 mg PO BID PRN Anxiety 02/08/23 02/16/25 apixaban 5 mg tablet (Eliquis) 5 mg PO BID 02/08/23 02/16/25 lansoprazole 30 mg capsule,delayed 30 mg PO DAILY 02/08/23 02/16/25 release levalbuterol HCl 0.63 mg/3 mL 0.63 mg inhalation DIRECTED PRN 02/08/23 02/16/25 solution for nebulization Shortness Of Breath Or Wheezing lisinopril 20 mg tablet 20 mg PO DAILY 02/08/23 02/16/25 nebulizers 02/08/23 02/16/25 rosuvastatin 20 mg tablet 20 mg PO DAILY 02/08/23 02/16/25 sertraline 100 mg tablet 150 mg PO DAILY 02/08/23 02/16/25 tiotropium bromide 2.5 2 puff inhalation QAM 02/08/23 02/16/25 mcg/actuation mist for inhalation (Spiriva Respimat) azelaic acid 15 % topical gel 1 appl topical BID 03/16/23 02/16/25 Oxygen Home Use 06/01/23 02/16/25 mexiletine 150 mg capsule 300 mg PO BID 01/10/24 02/16/25 CPAP (CPAP Machine/Device) 04/24/24 02/16/25 diltiazem HCl 120 mg 120 mg PO DAILY 04/24/24 02/16/25 capsule,extended release 24 hr empagliflozin 10 mg tablet 10 mg PO DAILY 11/25/24 02/16/25 (Jardiance) acetaminophen 650 mg 650 mg PO Q12H PRN Pain 12/15/24 02/16/25 tablet,extended release (Tylenol Arthritis Pain) calcium citrate 250 mg PO DAILY 12/15/24 02/16/25 cholecalciferol (vitamin D3) 25 25 mcg PO DAILY 12/15/24 02/16/25 mcg (1,000 unit) capsule gabapentin 400 mg capsule 1,200 mg PO BEDTIME 12/15/24 02/16/25 magnesium citrate 100 mg capsule 300 mg PO DAILY 12/15/24 02/16/25 multivitamin 1 tab PO DAILY 12/15/24 02/16/25 cyclosporine 0.05 % eye drops in a 1 drp ophthalmic (eye) BID 01/19/25 02/16/25 dropperette (Restasis) fluticasone propionate 50 2 spray intranasal DAILY PRN 01/19/25 02/16/25 mcg/actuation nasal Allergy Symptoms spray,suspension furosemide 20 mg tablet (Lasix) 20 mg PO DAILY edema 03/11/25 Previous Rx's ?Medication ?Instructions ?Recorded trazodone 50 mg tablet 50 mg PO BEDTIME PRN sleep 30 days 09/15/24 #30 tabs benzonatate 200 mg capsule 200 mg PO BID PRN cough 30 days 02/24/25 #60 caps codeine 10 mg-guaifenesin 100 mg/5 10 ml PO Q6H PRN cough 10 days 02/24/25 mL oral liquid #300 mL levalbuterol HCl 1.25 mg/3 mL 1.25 mg (3 mL) inhalation DAILY 30 02/24/25 solution for nebulization days #90 mL levalbuterol tartrate 45 2 puff inhalation Q6H PRN 02/24/25 mcg/actuation aerosol inhaler shortness of breath or wheezing 30 (Xopenex HFA) days #15 grams Ventolin HFA 90 mcg/actuation 2 puff inhalation QID PRN 03/17/25 aerosol inhaler (albuterol sulfate) shortness of breath or wheezing 30 days #18 grams Allergies Allergy/AdvReac Type Severity Reaction Status Date / Time hydromorphone (From Dilaudid) Allergy Severe Confusion Verified 04/06/25 15:04 Sulfa Drugs Allergy Severe Rash Uncoded 02/16/25 10:06 [facility] Past Medical History Medical History Premature ventricular contraction Bradycardia SOB (shortness of breath) Palpitations Dilated cardiomyopathy Mitral regurgitation Aortic atherosclerosis Vitamin D deficiency CAD (coronary artery disease) Restless leg syndrome Migraine Nephrolithiasis Cataract Depression Hiatal hernia GERD (gastroesophageal reflux disease) Oxygen dependent On anticoagulant therapy Elevated cholesterol Atrial fibrillation HTN (hypertension) On home oxygen therapy Systolic murmur Insomnia CHF (congestive heart failure) JACKIE (obstructive sleep apnea) Asthma Pulmonary hypertension Pulmonary emboli Dyspnea Surgical History Hx of cataract extraction History of esophagogastroduodenoscopy (EGD) H/O colonoscopy Hx of lithotripsy History of total bilateral knee replacement (TKR) Social History Social History Are you a primary career placement services counselor to a significant other at home: No Do you presently have visiting nurse or other home services: No Patient Tobacco Use Status: Never used Tobacco Advance Directives: No Advance Directives Information Provided: No Physical Exam ED Vital Signs: BMI result Body Mass Index 29.0 Course Course Course Narrative: This is a Rapid Medical Examination (RME) performed by Anna Conte PA-C in triage. Full HPI, ROS, assessment and treatment plan per primary provider in the Main ED. Hx: 74 yo F hx of CHF, pulmonary HTN, PE (on eliquis), asthma, HTN, afib, GERD, CAD here for eval of shortness of breath, feeling anxious, and left sided chest pain which began late morning today while doing chores around the house. put on her oximeter and noted her O2 to be in the 80s, had to put on her O2 and increase it to 4-5L. took off her O2 just prior to driving herself to ED. typically wears suppl O2 2L while exercising only. reports assoc brain fog. reports recent congested cough at night. no recent stressors/ anxiety. 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 tee who she states suspected costocondritis. PE/vitals: satting 95% on RA in triage Plan: labs, ekg, cxr, viral swabs Reevaluation(s) Reevaluation #1: Patient left the emergency department before myself or any of the other clinicians could review or explain physical exam findings, test results, need or lack there of for additional testing, treatment options, or a treatment plan. Medical Decision Making Lab Data 04/06/25 15:19 04/06/25 15:19 Labs: Lab Results 04/06/25 Range/Units 15:19 WBC 6.2 (4.8-10.8) X10*3/uL RBC 4.16 L (4.20-5.50) X10*6/uL Hgb 13.0 (12.0-16.0) g/dl Hct 39.1 (37.0-47.0) % MCV 94.0 (80.0-98.0) fL MCH 31.3 (27.0-33.0) pg MCHC 33.2 (31.0-35.0) g/dl RDW 13.1 (11.0-16.0) % Plt Count 144 L (160-400) X10*3/uL MPV 11.3 (9.4-12.3) fL Immature Gran % (Auto) 0.3 (0.0-0.4) % Neut % (Auto) 58.6 (45-73) % Lymph % (Auto) 29.1 (20-40) % [place] % (Auto) 7.8 (2-11) % Eos % (Auto) 3.6 (0-4) % Baso % (Auto) 0.6 (0-2) % Lymph # (Auto) 1.8 (1.2-4.9) X10*3/uL [place] # (Auto) 0.5 (0.1-1.2) X10*3/uL Eos # (Auto) 0.2 (0.0-0.4) X10*3/uL Baso # (Auto) 0.0 (0.0-0.2) X10*3/uL Abs Immat Gran (auto) 0.02 (0.00-0.03) X10*3/uL Absolute Neuts (auto) 3.6 (2.0-8.3) x10*3/uL Absolute Nucleated RBC 0.000 (0.0-0.012) X10*3/uL Nucleated RBC % (auto) 0.0 (0.0-0.2) /100WBC Sodium 142 (135-145) mmol/L Potassium 4.1 (3.3-5.1) mmol/L Chloride 107 (96-108) mmol/L Carbon Dioxide 26 (22-29) mmol/L Anion Gap 13 (12-20) BUN 20 H (9-16) mg/dL Creatinine 0.84 (0.5-1.4) mg/dL Estim Creat Clear Calc 60.6 Estimated GFR > 60 Random Glucose 87 (60-115) mg/dL Calcium 8.4 D (8.4-10.2) mg/dL Magnesium 2.3 (1.6-2.6) mg/dL Total Bilirubin 0.5 (0.0-1.0) mg/dL AST 24 (5-31) U/L ALT 16 (0-31) U/L Alkaline Phosphatase 90 (39-117) U/L Troponin I High Sens < 2.7 (<3.5-17.0) ng/L B-Natriuretic Peptide 116 H (<100) pg/mL Total Protein 6.9 (6.5-8.0) g/dL Albumin 4.5 (3.5-5.0) g/dL Influenza Type A (PCR) NEGATIVE (Negative) Influenza Type B (PCR) NEGATIVE (Negative) RSV RNA Qual (PCR) NEGATIVE (Negative) SARS-CoV-2 RNA (RT-PCR) NEGATIVE (Negative) Discharge Plan Discharge Clinical Impression: Dyspnea Patient Disposition: Left W/O Completing Treatment Prescriptions: No Action trazodone 50 mg tablet 50 mg PO BEDTIME PRN (Reason: sleep) 30 Days Qty: 30 11RF albuterol sulfate [Ventolin HFA] 90 mcg/actuation HFA aerosol inhaler 2 puff inhalation QID PRN (Reason: shortness of breath or wheezing) 30 Days Qty: 18 11RF fluticasone propionate 50 mcg/actuation spray,suspension 2 spray intranasal DAILY PRN (Reason: Allergy Symptoms) cyclosporine [Restasis] 0.05 % dropperette 1 drp ophthalmic (eye) BID (DME) Oxygen Home Use Kit See Rx Instructions .Route Rx Instructions: As directed multivitamin Tablet 1 tab PO DAILY cholecalciferol (vitamin D3) 25 mcg (1,000 unit) capsule 25 mcg PO DAILY calcium citrate 250 mg calcium tablet 250 mg PO DAILY magnesium citrate 100 mg capsule 300 mg PO DAILY acetaminophen [Tylenol Arthritis Pain] 650 mg tablet extended release 650 mg PO Q12H PRN (Reason: Pain) alprazolam 0.5 mg tablet 0.5 mg PO BID PRN (Reason: Anxiety) Spiriva Respimat 2.5 mcg/actuation mist 2 puff inhalation QAM sertraline 100 mg tablet 150 mg PO DAILY lisinopril 20 mg tablet 20 mg PO DAILY rosuvastatin 20 mg tablet 20 mg PO DAILY levalbuterol HCl 0.63 mg/3 mL solution for nebulization 0.63 mg inhalation DIRECTED PRN (Reason: Shortness Of Breath Or Wheezing) lansoprazole 30 mg capsule,delayed release(DR/EC) 30 mg PO DAILY Eliquis 5 mg tablet 5 mg PO BID (DME) nebulizers Mis See Rx Instructions .Route Rx Instructions: As directed gabapentin 400 mg capsule 1,200 mg PO BEDTIME azelaic acid 15 % gel 1 appl topical BID mexiletine 150 mg capsule 300 mg PO BID diltiazem HCl 120 mg capsule,extended release 24hr 120 mg PO DAILY (DME) CPAP Machine/Device Device See Rx Instructions .Route Rx Instructions: As directed Jardiance 10 mg tablet 10 mg PO DAILY benzonatate 200 mg capsule 200 mg PO BID PRN (Reason: cough) 30 Days Qty: 60 4RF codeine-guaifenesin 10-100 mg/5 mL liquid 10 ml PO Q6H PRN (Reason: cough) 10 Days Qty: 300 0RF levalbuterol HCl 1.25 mg/3 mL solution for nebulization 1.25 mg inhalation DAILY 30 Days Qty: 90 5RF levalbuterol tartrate [Xopenex HFA] 45 mcg/actuation HFA aerosol inhaler 2 puff inhalation Q6H PRN (Reason: shortness of breath or wheezing) 30 Days Qty: 15 11RF furosemide [Lasix] 20 mg tablet 20 mg PO DAILY Discharge Date/Time: 04/06/25 21:15
[2025-04-06 15:23] LABS: MANUAL DIFF FLAG NO
[2025-04-06 15:25] LABS: Hematocrit 39.1 % (37.0-47.0); Hemoglobin 13.0 g/dl (12.0-16.0); Imm Gran Abs Auto 0.02 X10*3/uL (0.00-0.03); Imm Gran Pct Auto 0.3 % (0.0-0.4); Lymphocytes Absolute Auto 1.8 X10*3/uL (1.2-4.9); Mean Corpuscular HGB Conc 33.2 g/dl (31.0-35.0); Mean Corpuscular Hemoglobin 31.3 pg (27.0-33.0); Mean Corpuscular Volume 94.0 fL (80.0-98.0); NRBC Abs Auto 0.000 X10*3/uL (0.0-0.012); NRBC Pct Auto 0.0 /100WBC (0.0-0.2); Platelet Count 144 X10*3/uL (160-400); Red Blood Count 4.16 X10*6/uL (4.20-5.50); White Blood Count 6.2 X10*3/uL (4.8-10.8)
[2025-04-06 15:46] LABS: Alanine Aminotransferase 16 U/L (0-31); Albumin Level 4.5 g/dL (3.5-5.0); Alkaline Phosphatase 90 U/L (39-117); Anion Gap 13 (12-20); Aspartate Amino Transferase 24 U/L (5-31); Blood Urea Nitrogen 20 mg/dL (9-16); Calcium 8.4 mg/dL (8.4-10.2); Carbon Dioxide 26 mmol/L (22-29); Chloride 107 mmol/L (96-108); Creatinine Clr Calc Pharmacy 60.6; Estimated Glomerular Filt Rate > 60; Magnesium 2.3 mg/dL (1.6-2.6); Potassium 4.1 mmol/L (3.3-5.1); Sodium 142 mmol/L (135-145); Total Protein 6.9 g/dL (6.5-8.0)
[2025-04-06 15:55] LABS: Troponin-I High Sensitivity < 2.7 ng/L (<3.5-17.0)
[2025-04-06 16:15] LABS: Resp Syncy Virus RNA Qual PCR NEGATIVE (Negative); SARS COV2 PCR INHOUSE NEGATIVE (Negative)
[2025-04-07 12:17] LABS: B Type Natriuretic Peptide 116 pg/mL (<100)
== END 2025-04-06 21:15 | disposition left against medical advice (07) ==
PROVIDERS: Physician Assistant Medical; Emergency Provider Emergency Medicine; PCP Internal Medicine
DX: R06.00 Dyspnea, unspecified (principal)
CPT/HCPCS: 36415; 71046; 80053; 83735; 83880; 84484; 85025; 87637; 93005; 99281; 99283

== ENCOUNTER → 2025-04-06 14:55 | Outpatient (BNV) | payer MEDICARE, OTHER, SELFPAY | PROVIDERS: Emergency Provider Emergency Medicine; PCP Internal Medicine; Visit Provider Internal Medicine Cardiovascular Disease | DX: R94.31 Abnormal electrocardiogram [ECG] [EKG] (principal); R06.02 Shortness of breath | CPT/HCPCS: 93010 ==

== ENCOUNTER → 2025-04-06 15:03 | Outpatient (BNV) | payer MEDICARE, OTHER, SELFPAY | PROVIDERS: PCP Internal Medicine; Visit Provider Radiology Diagnostic Radiology | DX: R06.02 Shortness of breath (principal) | CPT/HCPCS: 71046 ==

== ENCOUNTER 2025-04-10 13:27 | Outpatient (AMB) | payer MEDICARE, OTHER, SELFPAY ==
[2025-04-10 13:29] VITALS: BP 122/64; PULSE 86; O2SAT 95; BMI 29.0
--- NOTE | 2025-04-10 13:29 | MHC.OFFVIS ---
Vital Signs 04/10/25 13:29 Height 5 ft 4 in Weight 169 lb BMI 29.0 BP 122/64 Blood Pressure Location Lt brachial Position Sitting Pulse 86 Pulse Source Pulse Oximeter Pulse Oximetry (%) 95 Oxygen Delivery Method Room Air Intake Visit Reasons: Shortness of breath Allergies hydromorphone (From Dilaudid) Allergy (Severe, Verified 04/10/25 13:38) Confusion Sulfa Drugs Allergy (Severe, Uncoded 02/16/25 10:06) Rash HPI Comments Details: The patient is a 74 year woman who has been complaining of worsening shortness of breath for the last several years. Apparently back in 2018 the patient has significant shortness of breath and was evaluated in the hospital. She did have a full cardiac evaluation in addition to a CTA. No evidence of any blood clots at that time. The patient did have an echocardiogram demonstrating pulmonary hypertension. Because her ongoing symptoms in the pulmonary hypertension she was referred to [place] for further care. There she had a level 3 cardiopulmonary exercise tolerance test. Her pulmonary pressures increased minimally without any significant evidence of significant pulmonary hypertension. She was not placed on any medicines. She also had a full pulmonary function study done at that time. It appeared that a pulmonary capacity was within normal limits. Only had a mild diffusion impairment. The patient continues to have ongoing symptoms without a clear explanation. She was also started on CPAP in the meantime. Still no improvement. Then in October she was evaluated in [place] which she had a CTA demonstrating evidence of pulmonary emboli. The patient started on Eliquis. Echocardiogram afterwards demonstrated a moderate amount of pulmonary hypertension. She does have a roving hauler in that area. She is tolerating the anticoagulation well. She is still short of breath. During the visit we did go for 6 minutes walk test. We did go up an incline. The patient was visibly dyspneic and also she became hypoxic down to 88%. Not only that when she was hypoxic it was noted that she had more ectopy in some degree of bigeminy. Likely induced by the level of hypoxia. I we did try her on oxygen and 2 L did improve her oxygenation and her energy with activity. So therefore will go ahead and start the patient on oxygen as we try to continue to monitor and evaluate her for her ongoing dyspnea symptoms. In part we have to assess the possibility of underlying chronic thromboembolic disease. We will do further testing for this condition. 03/20/2023 the patient is here for a pulmonary follow-up visit. she continues to have significant dyspnea on exertion even with minimal activity. The oxygen supplementation has been helpful for her per in the meantime regarding her history of blood clots she is using her anticoagulation with good effect and she has good adherence. She did undergo a V/Q scan ruling out the possibility of chronic thromboembolic disease. She also has been using her CPAP regularly. Her machine had been adjusted and the overnight oximetry had improved. Will go ahead and repeat that again just to make sure. In addition to this we did review her cardiopulmonary exercise stop all rinse test which was a level 3 study done in [place]. 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 She also had excessive systemic hypertension during the study although the wedge pressure did not demonstrate any evidence of any left-sided heart failure that may have resulted in the pulmonary hypertension. Today we had her undergo a 6 minutes walk test and she still desaturating some although better than the last time that she was here. Still requires the oxygen specially to exercise. Patient did undergo pulmonary function studies and we personally reviewed. No significant obstructive nor restrictive disease although she has a low normal total lung capacity. The diffuse capacity is mildly decreased. 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 She did have an echocardiogram back in January which also demonstrated that her pulmonary pressures were elevated even at rest though. at this point the patient has pulmonary attention that appears to be symptomatic and would benefit from vasodilator therapy. 04/12/2023 the patient is here for pulmonary follow-up visit. Continues to have dyspnea on exertion moderate severity. The oxygen continues to be helpful. She continues on the Lasix 20 mg daily. She is not weighing herself daily at this time. We were trying to get her on sildenafil although her insurance denied it. We did send a prior approval for in order to get her on sildenafil for the pulmonary hypertension but they still denied it. We did review her level 3 CPET that she had about 4 years ago demonstrating exercise-induced pulmonary hypertension. Ultimately after that she ended up with the thromboembolic disease back in October 2022. We did perform a V/Q scan that was reassuring she will have another CTA ordered by her roving hauler to make sure that there is no further evidence of thrombolic disease. The patient had an echocardiogram demonstrating elevated pulmonary pressures in addition to that had a brain natretic peptide was significantly elevated at 1900. Therefore, the appears to be some degree of ardiac strain. I do believe the patient will benefit from vaso-dilatory therapy for her pulmonary hypertension. At this point she will require a referral back to [place] to further address the degree of pulmonary hypertension with a repeat evaluation. Currently she is within the [facility] system therefore will go ahead and refer her to [facility]. In the meantime she will increase her Lasix to 40 mg daily for about 5 days and then she will weigh herself daily and monitor for any weight gain and she will take additional Lasix if her weight increases to a certain degree. I did give her instructions. She continues on the Eliquis and she is adherent to the therapy. She will follow-up with the roving hauler regarding the thromboembolic disease and hyper hypercoagulable state. At this point it is considered to be unprovoked. Not clear if this is related to COVID or not. At this point she will follow up with roving hauler for further evaluation. 06/01/2023 the patient is here for a pulmonary follow-up visit. She is feeling more drowsy during the daytime. She says that she tends to fall asleep during the day. She has decreased energy. She has been also noticing she is been needing additional oxygen. She is wondering if that is related. Explained to her that is unlikely to be her oxygen. Although will go ahead and check a venous gas to make sure that his CO2 is okay. the patient did follow-up with cardiology. Her brain natriuretic peptide was elevated. She is already on Lasix. These recommended talking to pulmonary. The patient understands that this is likely due to significant straining to the right ventricle. She was given a referral to [facility] but there is a long delay. We will call them again to see if they can move up her appointment. In the meantime we will increase her diuretics if her brain atretic peptide continues be elevated and also if she is continues to be symptomatic. she continues use the oxygen with activity. We did go for brief walking oximetry and she actually did fairly well and there was reassuring for her. I encouraged her to stay active. Also did review her CT scan of the chest PE protocol demonstrating interval resolution her blood clots and otherwise stable findings. 07/05/2023 the patient is here for a pulmonary follow-up visit. The patient overall is doing about the same. She is using her portable oxygen concentrator. The therapy has been effective providing her with better portability outside of the home. She continues with her diuresis. The lower extremity edema is overall better. The patient did have the visit with [facility] pulmonary hypertension clinic. They did go ahead and order a level 3 cardiopulmonary exercise study. Although it is not till September. The patient continues to be symptomatic therefore, I am going to speak to her cardiology team to see if we can at least do a right heart catheterization locally in to see if we can get all the answers that we need. If the right heart catheterization is not helpful then she can proceed have her level 3 CPAP. The patient continues to be more symptomatic so I do believe that the her CT hopefully can give us enough information to start her on vasodilators carole therapy if does what she needs. 11/26/2023 the patient is here for a pulmonary follow-up visit. She continues to struggle with her breathing. Although it has improved to some degree. She did follow-up in [place]. She was placed on diltiazem for significant PVCs. It appears to be helping. She also has been using her oxygen with activity, but less. She did undergo a level 3 CPET in [place]. Demonstrated that she does have pulmonary vascular disease with exercise suggesting exercise-induced pulmonary hypertension. The patient did have a repeat 6 minutes walk test today with me. We did go up 4 flights of stairs. The patient did desaturate down to 89% heart rate went up to about 130 beats per minute. Her hypoxia worsened after rested. She did take around 2-3 minutes to recover. Therefore, will continue providing her with the oxygen with activity specially as we psych where his to start pulmonary rehabilitation. The patient was prescribed sildenafil based on her exercise-induced pulmonary hypertension and I did speak to her specialist in [place] and they did agree with the intervention. Will hoping to start on sildenafil soon with the help improvement her vascular resistance with exercise and improve her hypoxia and tachycardia. I did answer all her questions. We did talk about her inhalers. She is going to try to simplify them at this time specially since she has not seen a significant improvement on the improved. 12/11/2023 the patient is here for a sick visit. The patient ultimately started on sildenafil. She is started slow in a low dose half a tablet initially and then increase to full tablet 3 times a day. She was started to feel ?funny?. She started noticing some leg swelling. Although she did make anything of it. And ultimately she started developing worsening shortness of breath in noticed that she was more hypoxic requiring oxygen more regularly. At that point she did call us and also called [facility]. They stopped the sildenafil the patient has started taking her additional diuretic. She still feels like she has not her baseline she is still using the oxygen more regularly. Therefore we had a firemen. The patient did have a chest x-ray which I personally reviewed without any overt heart failure or any pulmonary edema which is reassuring. Her blood work is also reassuring with normal cardiac enzymes and a normal brain atretic peptide where it was elevated before. In addition to that we did go for brief walking oximetry the patient did desaturate down to 88% on room air. Although she maintain her pulse ox around 91% for most of the ambulation. She did have a portable oxygen concentrator and she had been wearing it. At this point we did review her previous echocardiogram from January of 2023 demonstrating normal EF although it did mentioned about the [id number] mitral regurgitation. From wondering if this could have resulted in worsening heart failure from full the mitral valve. In addition to that we talked about diastolic dysfunction and also veno-occlusive disease that is less likely. For now though she will stop the vasodilators therapy will continue with diuretic therapy as she is responding well. Will go ahead and request a repeat echocardiogram and she should follow-up with cardiology. 01/10/2024 the patient is here for a pulmonary follow-up visit. Overall she is feeling better. She did have a follow-up with her electrophysiology physician who will start her on antiarrhythmic agent for persistent abnormal findings on her Holter monitor. I do not have those results. In addition to that she did have an echocardiogram demonstrating some degree of diastolic dysfunction and also mitral valve regurgitation. The patient is wondering why she has difficulty with the medication. We and talked about the possibility of veno-occlusive disease and also talked about the possibility of the heart not been able to tolerate the increase in the blood return after the vasodilators was provided. The patient does have a follow-up with [facility] pulmonary to see if they have any further recommendations regarding the exercise-induced pulmonary hypertension. She continues on the Eliquis for history of pulmonary emboli although her V/Q scan was very reassuring that she does not have any residual clots. Her volume status is better. She continues on diuretics. She is having some issues with leg swelling and pain. Will go ahead and request blood work. The patient follow-up in 4 months. If he has any worsening symptoms she will call for 04/24/2024 the patient is here for a pulmonary follow-up visit. The patient has been having some difficulties with her sleep. She is having some insomnia. She is using the trazodone 100 mg at nighttime. In addition to that sometimes she uses a small dose of Ativan. Although she can only get about 3-4 hours asleep. The patient also has gabapentin. She is going to start taking the gabapentin more regularly. She uses her more her pain issues. The patient has a CPAP. She is having some difficulties tolerating the CPAP because of her insomnia. We did download her data. Seems like her AHI is less than 1. her pressure settings are adequate. Her average pressure is 11 cm of water. Will go ahead and decrease her maximum pressure from 16-13 to minimize significant elevations in the pressures. From a respiratory status she is doing better after completing pulmonary rehabilitation. She also continues with diuresis. She does continue to have the oxygen. She did have COVID and she was using the oxygen more regularly then. I am hopeful that when she comes back in 2-3 months we can do 6 minute walk test and see if we can hopefully discontinue the oxygen for her. She continues with her diuretics. Will plan to follow-up 2 months. If any issues arise prior to that she will call for an earlier assessment. 08/06/2024 the patient is here for a pulmonary follow-up visit. Overall the patient feels like she is getting worse. Feels like she is having more shortness of breath. She is having to use the oxygen more. In the meantime she has been using her CPAP. The CPAP therapy has been affecting beneficial and she does use it for more than 4 hours a night. We had done an overnight oximetry before she did not need oxygen but will go ahead and repeated again to make sure specially with the issue with the pulmonary hypertension. At this point it appears that her pulmonary hypertension is more related to her stiffen left ventricle and diastolic dysfunction specially since she could not tolerate the vasodilators therapy therapy resulting in flash edema. Veno-occlusive diseases less likely specially with her very severe dilated left atrium. The patient is currently on diuretics. She was placed on torsemide for moment but she develops significant reactions to that. She is going to be following up with the congestive Heart failure Clinic at [facility] which is believe is very good option for her. I did ask her to discuss Jardiance with the team there. In the meantime she is going to continue with the oxygen with activity. She was going to have the overnight oximetry test again. The patient will undergo blood work a couple weeks and we can check her electrolytes make sure that she is tolerating the diuresis. She is also having some chest congestion some sinus congestion. Will go ahead and start her on nasal prior and also started on Singulair she had before she seemed to tolerate okay. 11/25/2024 the patient is here for pulmonary follow-up visit. The patient continues to have dyspnea on exertion. Moderate severity. Substance now she is getting shortness of breath at rest. Still continues to need oxygen primarily with activity but she has also been noticing that her oxygen drop to 88% at rest. She did follow-up with the heart failure clinic at [facility]. She is being monitored very closely. She was placed on Jardiance that she feels is working better than the Lasix. She also underwent a MRI of the heart which ruled out any intrinsic or infiltrative cardiac disease. She does have Spiriva inhaler although she stopped using it because she felt like she was taken to any medications. I did request that she can restarted been maybe as every other day medication. Her last echocardiogram was back in May demonstrating that dilated left atrium. And also the MRI also picked up the severely dilated left atrium. On my cardiac exam today the patient did have 3/6 systolic murmur best heard at the right sternal border. Seem to radiate to the clavicle. The patient had does have a history of aortic valve disease. Will go ahead and request a repeat echo at [facility] since does where she had the last 1 and does wear bisque kiln drawer is. I do believe that this may be in part affecting her cardiovascular function. She does continue with CPAP. The CPAP therapy affecting beneficial and she does use it for more than 4 hours a night. Based on the overnight oximetry the patient does benefit from oxygen with CPAP which she is using 2 L per minute with CPAP. She is having issue with the back pain. She was coughing all the sudden started developing severe back pain. She had x-rays done by primary care a [facility] which demonstrated a compression fracture. Seems like he was older although she may have a new compression fracture. She will also need to follow-up with pain management to see if we need vertebroplasty secondary to significant pain. She is also being looked at for hip replacement. At this point she should hold off until she is better before having elective surgery. 02/24/2025 the patient is here for pulmonary follow-up visit. Since we last spoke she started developing pleuritic discomfort of the chest substernal in location moderate to severe. This happened after having an incident with her cat where she had to quickly move the CAT and therefore by doing so straining herself or hurting herself causing significant pain. She was evaluated in an urgent care and she did have an x-ray. Apparently this was done a [facility]. We do not have those films. Although she was kept to make sure she did have any cardiac abnormalities more than anything else. She was discharged when she ruled out for any myocardial injury. This happened about 3 weeks so she still having significant pain although little bit better. She still has a hard time taking a deep breath in. She is on Eliquis because she has had a history of blood clots back in 2022 but those resolved therefore responding well to the Eliquis and she has not stopped the Eliquis at any point to suggest recurrent clots. Therefore will have her get a rib series and also treat her pain and her inflammation to see if they can provide some relief. If the patient continues to be uncomfortable and it if the x-rays on helpful then will go ahead and request a CT scan of the chest. In the meantime I did provide her an incentive spirometer for her to work on deep breathing exercises. She should use the oxygen to keep her pulse ox above 90%. And she is also using the CPAP at nighttime. The CPAP therapy continues to be affecting beneficial. And she does use it for more than 4 hours a night. She did have an echocardiogram scheduled but right now she will have to hold off because he has too much tenderness in costochondral area. 04/10/2025 the patient is here for a pulmonary follow-up visit. She had 1 event where she had some symptoms of shortness of breath in addition to left-sided chest pain and was noted to be hypoxic. Her symptoms were moderate to severe. She was dizzy and did not feel good. She did call our office and she was recommended to go to the ER. She should call the ambulance but she actually drove because she was starting to feel little bit better. She waited in the ER about 6 hours. She did have a chest x-ray which I personally reviewed demonstrating no acute disease and she also had blood work which is reassuring except for slightly elevated brain atretic peptide. The patient's symptoms felt like when she had a blood clot. Currently she is on Eliquis but does not been perfect. Therefore based on the fact that she developed significant hypoxia chest pain in the symptoms were similar to when she had a blood clot it will be very reasonable to order a CTA this time to rule out PE. Indeed the patient has been adherent to the Eliquis but the Eliquis is not 100% preventing blood clots. The patient also was having issues with cardiac arrhythmias in his have any additional ectopy. She is due for an echo and she needs to call to schedule. The patient is look into transfer her care over to [place] so therefore I will refer her also to Cardiology in order to be assessed from a cardiology standpoint as well. She may need a Holter. She does have a business solution analyst from [place] that had been following her because of the irregular heart rhythm that was noted on previous testing. The patient also his having back issues. The x-ray demonstrated a new compression fracture. The CAT scan will help also delineate if any additional fractures that will need further interventions. She will continue to use the oxygen for now she is on the respiratory medications as prescribed. Will plan to follow-up in 6 weeks. If she has not issues prior to this she will call for an earlier assessment. [facility] Medical History (Updated 04/12/25 @ 20:05 by Joni Deleon MD) Chest pain Premature ventricular contraction Bradycardia SOB (shortness of breath) Palpitations Dilated cardiomyopathy Mitral regurgitation Aortic atherosclerosis Vitamin D deficiency CAD (coronary artery disease) Restless leg syndrome Migraine Nephrolithiasis Cataract Depression Hiatal hernia GERD (gastroesophageal reflux disease) Oxygen dependent On anticoagulant therapy Elevated cholesterol Atrial fibrillation HTN (hypertension) On home oxygen therapy Systolic murmur Insomnia CHF (congestive heart failure) JACKIE (obstructive sleep apnea) Asthma Pulmonary hypertension Pulmonary emboli Dyspnea Surgical History Hx of cataract extraction History of esophagogastroduodenoscopy (EGD) H/O colonoscopy Hx of lithotripsy History of total bilateral knee replacement (TKR) Social History Are you a primary lawn care technician to a significant other at home: No Do you presently have visiting nurse or other home services: No Patient Tobacco Use Status: Never used Tobacco Review of Systems Const Denies fever(s) Eyes Reports no additional complaints ENT Denies nasal congestion and Reports neck pain Card Reports chest pain, Reports chest pain with activity and Reports dyspnea on exertion Resp Reports pain on inspiration, Reports pain with cough, Reports dyspnea on exertion and Denies wheezing GI Reports no additional complaints Musc Reports as per HPI, Reports back pain, Reports loss of height, Reports neck pain, Reports radiating pain into limb and Reports tingling Skin/Breast Denies rash Neuro Reports no additional complaints and Reports tingling Endo Reports no additional complaints Cameron/Lymph Denies easy bleeding, Denies easy bruising and Denies lymphadenopathy Aller/Immun Denies wheezing Physical Exam Vital Signs: Last Vital Signs Pulse 86 04/10/25 13:29 BP 122/64 04/10/25 13:29 Pulse Ox 95 04/10/25 13:29 Oxygen Delivery Method Room Air 04/10/25 13:29 BMI result Body Mass Index 29.0 Const General: comfortable and no acute distress Orientation/consciousness: patient oriented x3 HEENT Head: Yes normocephalic Mouth: Normal oral and palatal mucosa present Eyes EOM: EOMs intact bilaterally Neck Neck: Yes supple Chest Chest palpation & inspection: no tenderness Resp Effort & Inspection: normal respiratory effort Auscultation: diminished lung sounds Cardio Jugular venous distension: no JVD Rate: regular rate Rhythm: regular rhythm Heart sounds: S1 normal heart sound present, S2 normal heart sound present and Murmur heart sound present systolic early, III/, with radiation and at the right sternal border GI Palpation (GI): Soft to palpation Auscultation: normal bowel sounds General: Yes no CVA tenderness Back/Spine/Pelvis Back: no CVA tenderness Skin General skin exam: no rashes or lesions noted Neuro General: patient oriented x3 and moves all extremities Extrem General: Yes no pedal edema Assessment & Plan Assessment & Plan (1) Pulmonary hypertension: Comment: Likely WHO 2>3, no evidence of CTED; Did not tolerate vasodilator therapy due to cardiogenic pulmonary edema Code(s): I27.20 - Pulmonary hypertension, unspecified Category: Medical (2) CHF (congestive heart failure): Comment: HFPEF Code(s): I50.9 - Heart failure, unspecified Category: Medical Qualifiers: Heart failure chronicity: chronic Heart failure type: diastolic Qualified Code(s): I50.32 - Chronic diastolic (congestive) heart failure (3) Dyspnea: Code(s): R06.00 - Dyspnea, unspecified Category: Medical Qualifiers: Dyspnea type: dyspnea on exertion Qualified Code(s): R06.09 - Other forms of dyspnea (4) Pulmonary emboli: Comment: No evidence of CTED Code(s): I26.99 - Other pulmonary embolism without acute cor pulmonale Category: Medical Qualifiers: Acute cor pulmonale presence: unspecified Chronicity: chronic Pulmonary embolism type: other Qualified Code(s): I27.82 - Chronic pulmonary embolism (5) Asthma: Code(s): J45.909 - Unspecified asthma, uncomplicated Category: Medical Qualifiers: Asthma complication type: uncomplicated Asthma persistence: persistent Asthma severity: moderate Qualified Code(s): J45.40 - Moderate persistent asthma, uncomplicated (6) JACKIE (obstructive sleep apnea): Comment: uses cpap Code(s): G47.33 - Obstructive sleep apnea (adult) (pediatric) Category: Medical (7) Insomnia: Code(s): G47.00 - Insomnia, unspecified Category: Medical Qualifiers: Insomnia type: primary Qualified Code(s): F51.01 - Primary insomnia (8) Back pain: Comment: New Compression fracture Code(s): M54.9 - Dorsalgia, unspecified Category: Medical Qualifiers: Back pain laterality: unspecified Back pain location: low back pain Chronicity: acute Sciatica presence: without sciatica Qualified Code(s): M54.50 - Low back pain, unspecified (9) Chest pain: Code(s): R07.9 - Chest pain, unspecified Category: Medical Qualifiers: Chest pain type: chest pain on breathing Qualified Code(s): R07.1 - Chest pain on breathing Plan Oxygen supplementation 2L/pulse with POC. Continue Eliquis BID daily weights continue CPAP therapy, adjusted 8-13 with 2L oxygen continue respiratory therapy with spiriva, ok every other day HARPAL as needed Lidoderm patch CTA to R/O PE, high risk Trazodone 150mg QHS gabapentin at night Cardiology referral ECHO pending F/U 1-2 months Orders: Orders CT angio chest PE protocol 04/10/25 I27.20 - Pulmonary hypertension, unspecified, I27.82 - Chronic pulmonary embolism, R07.9 - Chest pain, unspecified Referrals Cardiology Referral I50.32 - Chronic diastolic (congestive) heart failure, R07.81 - Pleurodynia Coding Level of Care Code Est Pt Level 5 (55883) Complex EM visit Add On G2211 Diagnoses Pulmonary hypertension I27.20 Chronic diastolic congestive heart failure I50.32 Heart failure chronicity: chronic Heart failure type: diastolic Dyspnea on exertion R06.09 Dyspnea type: dyspnea on exertion Other chronic pulmonary embolism, unspecified whether acute cor pulmonale present I27.82 Acute cor pulmonale presence: unspecified Chronicity: chronic Pulmonary embolism type: other Moderate persistent asthma without complication J45.40 Asthma complication type: uncomplicated Asthma persistence: persistent Asthma severity: moderate JACKIE (obstructive sleep apnea) G47.33 Primary insomnia F51.01 Insomnia type: primary Acute low back pain without sciatica, unspecified back pain laterality M54.50 Back pain laterality: unspecified Back pain location: low back pain Chronicity: acute Sciatica presence: without sciatica Chest pain on breathing R07.1 Chest pain type: chest pain on breathing Time Spent (min) 40
--- OUTSIDE RECORDS SUMMARY | 2025-04-10 13:30 | XMS_ITS | Encounter Summary ---
Author Organization [facility] Address [address] [place] [address] Care Team Providers Care Ophthalmic Assistant Name Role Phone Sherice John MD Primary Care Provider Unavailab Mikal Rodriguez MD Unavailable Dante Ghotra NP Unavailable Marvin Pritchett MD Unavailable Shahnaz Sanchez PA-C Unavailable Reason for Visit * Reason Onset Date Comments Holter Monitor 07/06/2023 Holter monitor r esult Encounter Details Date Type Department Care Team Description 07/06/2023 Telephone Cardio [facility] [address] [place] [address] Mikla Jones MD [address] [facility] [address] [place] [address] Holter Monitor (Holter monitor result ) Social [...] by Dr Cabrera are viewable in [facility]. * Telephone Encounter - Malena Linn - 07/06/2023 4:17 PM EST Mary Delgado called to see if Dr. Jones had seen the result of the monitor that was ordered by Dr. Tangela Cabrera a doctor in [place] .The Patient states the result is in My chart serg documented in this encounter Plan of Treatment Not on file documented as of this encounter Visit Diagnoses Not on filedocumented in this encounter Care Teams Ophthalmic Assistant Relationship Specialty Start Date End Date Sherice John MD PCP - General Internal Medicine 01/10/19 Mikal Jones MD [address] [address] Demolition Worker Cardiology 08/06/20 Dante Ghotra NP [address] [address] Nurse Practitioner Cardiology 03/21/22 Marvin Pritchett MD [address] [facility] [address] [place] [address] Demolition Worker Cardiology 04/21/22 Shahnaz Sanchez PA-C [address] [address] Demolition Worker Cardiology 04/21/22 documented as of this encounter
--- OUTSIDE RECORDS SUMMARY | 2025-04-10 13:30 | XMS_ITS | Clinical Summary ---
Author Organization [facility] Address [address] [place] [address] Phone Care Team Providers Care Stem Assembler Name Role Phone Sherice John MD Primary Care Provider [phone] Allergies Active Allergy Reactions Criticality Noted Date [...] Continue diltiazem and mexiletine. Appreciate management from [facility] electrophysiology. Seasonal allergies 11/07/2022 Moderate persistent asthma [...] defer management of this issue to her cyber incident responder. Fortunately her dyspnea on exertion has been stable and is not significantly interfering with her quality of life. Mild persistent asthma 02/07/2019 GERD (gastroesophageal reflux disease) 9 Encounters Date Type Department Care Team Description 01/19/2025 Telephone [facility] [address] [place] [address] Center [address] [place] [address] Sherice John MD Medical Records 01/08/2025 Telephone [facility] [address] [place] [address] Mikal Jones MD Call from [facility] from Last 3 Months Immunizations Name Administration [...] KNEE REPLACE KIDNEY STONE SURGERY 01/2017 PROCEDURE: CA NEPHROLITHOTOMY REMOVAL CALCULUS; COMMENT: Ureteroscopy/stone removal /stent [...] Description 06/23/2025 10:40 AM EST Office Visit [facility] [address] [place] [address] CycDante feng NP [address] [place] [address] Dr [address] [place] [address] Health Maintenance Due Date Last Done Comments [...] AM EST Performed at: 01 - [facility] [address] [id number] Supervisor Acoustical Tile Carpenters: Trudy Zamudio MD, Phone: [phone] us Reshma Valderrama POWER PLANT ASSISTANT LAB BLOOD ORDERABLES Final R esult [facility] 1 from Last 3 Months or Most Recently Relevant to Health Maintenance Insurance MEDICARE [facility] Care Teams Stem Assembler Relationship Specialty Start Date End Date Sherice John MD [address] [place] [address] PCP - General Internal Medicine 01/10/19
--- OUTSIDE RECORDS SUMMARY | 2025-04-10 13:30 | XMS_ITS | Encounter Summary ---
Author Organization [facility] Address [address] [place] [address] Phone Care Team Providers Care Fixing Carpenter Name Role Phone Sherice John MD Primary Care Provider [phone] Deya Sotelo MD Unavailable Joni Deleon MD Unavailable Mikal Jones MD Unavailable Lulú Vizcaino Unavailable [phone] Encounter Details Date Type Department Care Team (Late st Contact Info) Description 12/15/2020 Ancillary Orders [facility],Outside Imaging [address] [place], [place] [phone] System, Provider Not In, [facility] Partners [address] [address] Social History Tobacco Use Types Packs/Day Years [...] PM EDT Office Visit [facility] [address] [place] [address] Rogelio Torrez DO 22 [place] [address] [email or web address] 12/10/2025 10:40 AM EDT Appointment [facility] [address] [place] [address] Lulú Vizcaino MBBS 30 [place] [address] [email or web address] 12/10/2025 11:40 AM EDT Office Visit [facility] Miguel Angel [address] [place] [address] Lulú Vizcaino MBBS [address] [place] [address] [email or web address] 03/03/2026 8:30 AM EDT Telemedicine [facility] Cardiac Arrhythmia Service [address] [facility], 5th Floor, [address] [place] [address] Angel Domínguez MD 55 [facility] [place] [address] [email or web address] documented as of this encounter Results * [...] documented as of this encounter Care Teams Fixing Carpenter Relationship Specialty Start Date End Date Sherice John MD [address] [place] [address] [email or web address] PCP - General Internal Medicine 03/08/18 Deya Sotelo MD [address] [address] [email or web address] Primary Oncologist Hematology and Oncology 11/27/2211/18 Joni Deleon MD [address] [place] [address] [place] [address] Pulmonary Disease 07/18/23 Mikal Jones MD 2 [facility] Center [address] [place] [address] Cardiology 07/23/23 Lulú Vizcaino MBBS [address] [facility] Center [address] [place] [address] [email or web address] Primary Oncologist Medical Oncology 11/29/23 documented as of this encounter Additional Source Comments The information contained in this document represents components of the legal health record. It is not the complete legal health record.[facility]
--- OUTSIDE RECORDS SUMMARY | 2025-04-10 13:30 | XMS_ITS | Clinical Summary ---
Author Organization [facility] Address [address] [place] [address] Care Team Providers Care Technical Operations Specialist Name Role Phone Sherice John MD Primary Care Provider [phone] Allergies Active Allergy Reactions Criticality Noted Date [...] topic Insurance MEDICARE PART A & B [facility] Care Teams Technical Operations Specialist Relationship Specialty Start Date End Date Sherice John MD [address] [place] [address] PCP - General 12/12/18
--- OUTSIDE RECORDS SUMMARY | 2025-04-10 13:30 | XMS_ITS | Encounter Summary ---
Author Organization [employer] Address [address] [facility] 7t [place] [address] Care Team Providers Care Weaving Machine Operator Name Role Phone Sherice John MD Primary Care Provider [phone] Encounter Details Date Type Department Care Team (Late st Contact Info) Description 04/08/2025 Orders Only [facility] MEDICAL [address] [place] [address] Provider, MD Kiersten Social History Tobacco Use Types Packs/Day Years Used Date Smoking Tobacco: Never Passive Smoke Exposure: Past Smokeless Tobacco: Never Alcohol Use Standard Drinks/Week Comments Yes 0 (1 standard drink = 0.6 oz pur e alcohol) occassionally Alcohol Answer Date Recorded How often do you have a drink containing alcohol ? 2 01/01/2025 How many drinks containing a lcohol do you have on a typical day when you are drinking? 0 01/01/2025 How often do you have six or more drinks on one occasion? 0 01/01/2025 Housing Stability Answer Date Recorded What is your housing situation today? I have magda sing 01/01/[address] you li [...] Internet Access Q2 Not on file 01/01/2025 Education Answer Date Recorded What is the highest level of school you have completed or the highest degree you have received? Master's degree (e.g., DEVENDRA, MS, Luis Eduardo, MEd, HOSPITAL TECHNICIAN, [employer]) 02/17/2025 Comments Unknown Sex and Gender Information Value Date Recorded Sex Assigned at Female 08/01/2022 12:40 PM EST Legal Sex Female 8:36 PM EDT Gender Identity Female 08/01/2022 12:40 PM EST Sexual Orientation Straight 10/04/2022 3: 13 PM EST documented as of this encounter Plan of Treatment Upcoming Encounters Date Type Department Care Team (Late st Contact Info) Description 04/30/2025 10:30 AM EDT Office Visit [facility] OPTOMETRY [address] [place] [address] Parris Torres, YONI [address] [place] [address] 05/01/2025 10:00 AM EDT Office Visit [facility] MEDICAL [address] [place] [address] Sherice John MD [address] [place] [address] documented as of this encounter Procedures Procedure Name Priority Date/Time Associated Diagnosis Comments XR CHEST 2 VIEWS Routine 04/06/2025 11:28 AM EDT documented in this encounter Results * XR Chest 2 Views (04/06/2025 11:28 AM EDT) Anatomical Region Laterality Modality Chest Radiographic Tami ging us Historical Provider MD MILLER XR PROCEDURES Final R esult documented in this encounter Visit Diagnoses Not on filedocumented in this encounter Care Teams Weaving Machine Operator Relationship Specialty Start Date End Date Sherice John MD [address] [place] [address] PCP - General Internal Medicine 08/08/22 documented as of this encounter
== END 2025-04-10 14:07 | disposition home or self-care (01) ==
LOC: HO.HPS 13:28
PROVIDERS: PCP Internal Medicine; Visit Provider Hospitalist
DX: I27.20 Pulmonary hypertension, unspecified (principal); I50.32 Chronic diastolic (congestive) heart failure; R06.09 Other forms of dyspnea; I27.82 Chronic pulmonary embolism; J45.40 Moderate persistent asthma, uncomplicated; G47.33 Obstructive sleep apnea (adult) (pediatric); F51.01 Primary insomnia; M54.50 Low back pain, unspecified; R07.1 Chest pain on breathing
CPT/HCPCS: 99215; G2211

== ENCOUNTER → 2025-04-10 13:27 | Outpatient (BNVA) | payer MEDICARE, OTHER, SELFPAY | PROVIDERS: PCP Internal Medicine; Visit Provider Hospitalist | DX: I27.20 Pulmonary hypertension, unspecified (principal); I50.32 Chronic diastolic (congestive) heart failure; I27.82 Chronic pulmonary embolism; R06.09 Other forms of dyspnea | CPT/HCPCS: 99212 ==

== ENCOUNTER 2025-04-14 14:50 | Outpatient (REF) | payer MEDICARE, OTHER, SELFPAY ==
--- OUTSIDE RECORDS SUMMARY | 2020-05-27 11:40 | XMS_ITS | Encounter Summary ---
Author Organization [facility] Address [address] [place] [address] [place] [address] Phone Care Team Providers Care Printed Circuit Boards Beveler Name Role Phone Sherice John MD Primary Care Provider [phone] Encounter Details Date Type Department Care Team (Late st Contact Info) Description 05/27/2020 11:40 AM EDT Hospital Encounter [facility] Ur[facility] Care 12 [place] [address] Guido Frankel PA [address] [place] [address] [email or web address] Social History Tobacco Use Types Packs/Day [...] No Risk Indicated 02/10/2025 6:23 PM EDT aTmi Jorge RN * [place] Suicide Severity Rating Scale (Screener/Recent Self-Report) Question [...] 1:00 PM EDT Office Visit [facility] [address] [place] [address] Rogelio Torrez, 22 [place] [address] 12/10/2025 10:40 AM EDT Appointment [facility] 30 [place] [address] Lulú Vizcaino, JORGE 30 [place] [address] [email or web address] 12/10/2025 11:40 AM EDT Office Visit [facility] Miguel Angel [address] [place] [address] Lulú Vizcaino MBBS 30 [place] [address] [email or web address] 03/03/2026 8:30 AM EDT Telemedicine [facility] Cardiac Arrhythmia Service 32 [facility], 5th Floor, [address] [place] [address] Angel Domínguez MD 55 [facility] [address] [place] [address] [email or web address] documented as of this encounter Procedures Procedure [...] Nondisplaced distal phalangeal fracture or fractures POS [id number] Narrative 05/27/2020 11:57 AM EDT 3 views. [...] Nondisplaced distal phalangeal fracture or fractures POS [id number] Guido MANZO IMG XR LOWER EXTREMITY Hailey [...] documented as of this encounter Care Teams Printed Circuit Boards Beveler Relationship Specialty Start Date End Date Sherice John MD [address] [place] [address] [email or web address] PCP - General Internal Medicine 03/08/18 documented as of this encounter Additional Source Comments The information contained in this document represents components of the legal health record. It is not the complete legal health record.[facility]
--- OUTSIDE RECORDS SUMMARY | 2020-06-01 10:45 | XMS_ITS | Encounter Summary ---
Author Organization [facility] Address [address] [place] [address] [place] [address] Phone Care Team Providers Care Rand Butting Machine Operator Name Role Phone Sherice John MD Primary Care Provider [phone] Encounter Details Date Type Department Care Team (Late st Contact Info) Description 06/01/2020 10:45 AM EDT Hospital Encounter [facility] 12 [place] [address] [place] SPENT GRAIN DRYER 12 [place] [address] [email or web address] Social History Tobacco Use Types Packs/Day Years [...] 6:23 PM EDT Tami Jorge RN * [place] Suicide Severity Rating Scale (Screener/Recent Self-Report) Question [...] 1:00 PM EDT Office Visit [facility] [address] [place] [address] Rogelio Torrez DO 22 [place] [address] 12/10/2025 10:40 AM EDT Appointment [facility] 30 [place] [address] Lulú Vizcaino, JORGE 30 [place] [address] [email or web address] 12/10/2025 11:40 AM EDT Office Visit [facility] [place] 30 [place] [address] Lulú Vizcaino, JORGE 30 [place] [address] [email or web address] 03/03/2026 8:30 AM EDT Telemedicine [facility] Cardiac Arrhythmia Service 32 [facility], 5th Floor, [address] [place] [address] Angel Domínguez MD 55 [facility] [address] [place] [address] [email or web address] documented as of this encounter Procedures [...] AM EDT No acute bony abnormality. POS [id number] Narrative 06/01/2020 11:24 AM EDT A total of 3 views reveal no fracture or other significant bony abnormality. No abnormal pleural-based density is apparent. Procedure Note Angel Garcia MD - 06/01/2020 A total of 3 views reveal no fracture or other significant bonyabnormality. No abnormal pleural-based density is apparent. IMPRESSION: No acute bony abnormality. POS [id number] us [place] SPENT GRAIN DRYER IMG XR CHEST Final Resul t documented [...] documented as of this encounter Care Teams Rand Butting Machine Operator Relationship Specialty Start Date End Date Sherice John MD [address] [place] [address] [email or web address] PCP - General Internal Medicine 03/08/18 documented as of this encounter Additional Source Comments The information contained in this document represents components of the legal health record. It is not the complete legal health record.[facility]
--- OUTSIDE RECORDS SUMMARY | 2021-04-29 14:22 | XMS_ITS | Encounter Summary ---
Author Organization [facility] Address [address] [place] [address] [place] [address] Phone Care Team Providers Care Telecasting Technician Name Role Phone Sherice John MD Primary Care Provider [phone] Encounter Details Date Type Department Care Team (Late st Contact Info) Description 04/29/2021 2:22 PM EDT Hospital Encounter [facility] [address] [place] [address] Francisca Baldwin PA 12 [place] [address] [email or web address] Social History Tobacco Use Types Packs/Day [...] 6:23 PM EDT Tami Jorge RN * [place] Suicide Severity Rating Scale (Screener/Recent Self-Report) Question [...] 1:00 PM EDT Office Visit [facility] [address] [place] [address] Rogelio Torrez, 22 [place] [address] 12/10/2025 10:40 AM EDT Appointment [facility] 30 [place] [address] Lulú Vizcaino, JORGE 30 [place] [address] [email or web address] 12/10/2025 11:40 AM EDT Office Visit [facility] [place] 30 [place] [address] Lulú Vizcaino, JORGE 30 [place] [address] [email or web address] 03/03/2026 8:30 AM EDT Telemedicine [facility] Cardiac Arrhythmia Service 32 [facility], 5th Floor, [address] [place] [address] Angel Domínguez MD 55 [facility] [address] [place] [address] [email or web address] documented as of this encounter Procedures [...] documented as of this encounter Care Teams Telecasting Technician Relationship Specialty Start Date End Date Sherice John MD [address] [place] [address] [email or web address] PCP - General Internal Medicine 03/08/18 documented as of this encounter Additional Source Comments The information contained in this document represents components of the legal health record. It is not the complete legal health record.[facility]
--- OUTSIDE RECORDS SUMMARY | 2021-12-21 12:40 | XMS_ITS | Encounter Summary ---
Author Organization [facility] Address [address] [place] [address] [place] [address] Phone Care Team Providers Care Telecom Manager Name Role Phone Sherice John MD Primary Care Provider [phone] Encounter Details Date Type Department Care Team (Late st Contact Info) Description 12/21/2021 12:40 PM EDT Hospital Encounter [facility] [address] [place] [address] [place] NUT ROASTER 12 [place] [address] [email or web address] Social History Tobacco Use Types Packs/Day Years [...] 6:23 PM EDT Tami Jorge RN * [place] Suicide Severity Rating Scale (Screener/Recent Self-Report) Question [...] 1:00 PM EDT Office Visit [facility] [address] [place] [address] Rogelio Torrez, 22 [place] [address] 12/10/2025 10:40 AM EDT Appointment [facility] 30 [place] [address] Lulú Vizcaino, JORGE 30 [place] [address] [email or web address] 12/10/2025 11:40 AM EDT Office Visit [facility] [place] 30 [place] [address] Lulú Vizcaino MBBS 30 [place] [address] [email or web address] 03/03/2026 8:30 AM EDT Telemedicine [facility] Cardiac Arrhythmia Service 32 [facility], 5th Floor, [address] [place] [address] Angel Domínguez MD 55 [facility] [address] [place] [address] [email or web address] documented as of this encounter Procedures Procedure [...] No acute osseous abnormality. [place] Sergio NUT ROASTER IMG XR LOWER EXTREMITY Hailey l Result [...] documented as of this encounter Care Teams Telecom Manager Relationship Specialty Start Date End Date Sherice John MD [address] [place] [address] [email or web address] PCP - General Internal Medicine 03/08/18 documented as of this encounter Additional Source Comments The information contained in this document represents components of the legal health record. It is not the complete legal health record.[facility]
--- OUTSIDE RECORDS SUMMARY | 2022-10-12 12:54 | XMS_ITS | Encounter Summary ---
Author Organization [facility] Address [address] [place] [address] [place] [address] Phone Care Team Providers Care Sustainability Analyst Name Role Phone Sherice John MD Primary Care Provider [phone] Encounter Details Date Type Department Care Team (Late st Contact Info) Description 10/12/2022 11:54 AM EST Hospital Encounter [facility] 12 [place] [address] Imelda Anders FNP 12 [place] [address] [email or web address] Social History Tobacco Use Types Packs/Day Years [...] 6:23 PM EDT Tami Jorge RN * [place] Suicide Severity Rating Scale (Screener/Recent Self-Report) Question [...] PM EDT Office Visit [facility] 22 [place] [address] Rogelio Torrez DO 22 [place] [address] 12/10/2025 10:40 AM EDT Appointment [facility] 30 [place] [address] Lulú Vizcaino, JORGE 30 [place] [address] [email or web address] 12/10/2025 11:40 AM EDT Office Visit [facility] [place] Angel 30 [place] [address] Lulú Vizcaino MBBS 30 [place] [address] [email or web address] 03/03/2026 8:30 AM EDT Telemedicine [facility]iac Arrhythmia Service 32 [facility], 5th Floor, [address] [place] [address] Angel Domínguez MD [address] [facility] [address] [place] [address] [email or web address] documented as of this encounter [...] may represent evolving pneumonia oratelectasis. Imelda Anders STRUCTURES ENGINEER IMG XR CHEST Final Resul t documented in this encounter Visit Diagnoses Not on filedocumented in this encounter Additional Health Concerns Infection Onset Date Last Indicated Resolved Time CoV-Risk 10/12/2022 10/12/2022 10/23/2022 1:22 AM EST CoV-Risk 10/25/2022 10/25/2022 11/05/2022 1:22 AM EDT CoV-Risk 11/24/2022 11/24/2022 12/05/2022 1:22 AM EDT documented as of this encounter Care Teams Sustainability Analyst Relationship Specialty Start Date End Date Sherice John MD [address] [place] [address] [email or web address] PCP - General Internal Medicine 03/08/18 documented as of this encounter Additional Source Comments The information contained in this document represents components of the legal health record. It is not the complete legal health record.[facility]
--- OUTSIDE RECORDS SUMMARY | 2022-10-25 14:17 | XMS_ITS | Encounter Summary ---
Author Organization [facility] Address [address] [facility] [address] [place] [id number] Phone Care Team Providers Care Stylist Assistant Name Role Phone Sherice John MD Primary Care Provider [phone] Encounter Details Date Type Department Care Team (Late st Contact Info) Description 10/25/2022 1:17 PM [facility] Hospital Encounter [facility] [address] [place] [address] Chaitanya Hall PA-C [address] [place] [id number] [email or web address] Social History Tobacco Use Types Packs/Day Years [...] 6:23 PM EDT Tami Jorge RN * [place] Suicide Severity Rating Scale (Screener/Recent Self-Report) Question [...] PM EDT Office Visit [facility] [address] [place] [address] [place] [address] 12/10/2025 10:40 AM EDT Appointment [facility] [address] [place] [address] Lulú Vizcaino, JORGE [address] [place] [address] [email or web address] 12/10/2025 11:40 AM EDT Office Visit [facility] [address] [place] [address] Lulú Vizcaino MBBS [address] [place] [address] [email or web address] 03/03/2026 8:30 AM EDT Telemedicine [facility] Cardiac Arrhythmia Service [address] [facility] 5[address], [address] [place] [address] Angel Domínguez MD [address] [facility] [address] [place] [address] [email or web address] documented as of this encounter [...] documented as of this encounter Care Teams Stylist Assistant Relationship Specialty Start Date End Date Sherice John MD [address] [place] [phone] [email or web address] PCP - General Internal Medicine 03/08/18 documented as of this encounter Additional Source Comments The information contained in this document represents components of the legal health record. It is not the complete legal health record.[facility]
--- NOTE | ~2025-04-14 | XR_ITS ---
EXAMINATION: XR LUMBOSACRAL SPINE CLINICAL INFORMATION: M80.88XA - Other osteoporosis with current pathological fracture, verteb... COMPARISON: MRI from December 20, 2024 TECHNIQUE: Single lateral view of the lumbosacral spine FINDINGS: Moderate atherosclerotic calcification is present in the aorta. L1 demonstrates chronic superior endplate compression fracture. L2 demonstrates mild superior endplate compression fracture methacrylate from kyphoplasty. L3 demonstrates moderate superior and inferior endplate compression fracture following kyphoplasty. There is facet sclerosis and osteophytes. L4 demonstrates stable mild superior endplate compression fracture. Facet sclerosis. L5 demonstrates endplate osteophytes and facet sclerosis. There is moderate disc space narrowing at L4-5 and L5-S1. XR/XR lumbar spine 1V IMPRESSION: Stable compression fractures. Degenerative disc disease and facet arthropathy is most advanced at L4-5 and L5-S1. Electronically signed by: Harish Hugo MD 04/14/2025 03:40 PM EDT
--- NOTE | ~2025-04-14 | CT_ITS ---
EXAMINATION: CT ANGIOGRAM CHEST CLINICAL INFORMATION: Pulmonary hypertension. COMPARISON: None available. TECHNIQUE: Multiple axial images were obtained through the chest after the administration of 65 mL of Omnipaque 350 intravenous contrast. Extensive vascular post-processing including two-dimensional and three-dimensional reformatted images were created and reviewed on an independent workstation. SmartPrep technique This CT examination was performed using dose optimization techniques as appropriate, variously including the following: *Automated exposure control *Adjustment of mA and/or kV according to patient size (this includes techniques or standardized protocols for targeted exams where dose is matched to indication/reason for exam; i.e. extremities or head) *Use of iterative reconstruction technique. DLP: 115 mGy centimeter. FINDINGS: The main pulmonary artery and its main branches are patent without gross intraluminal filling defects. Thoracic aorta demonstrates no aneurysm or dissection. Calcified plaques in the aortic arch and its main branches, specifically left subclavian artery. Calcified plaques in the coronary arteries. Calcified plaque in the mitral valve. Heart appears enlarged mostly the left heart chambers. No pericardial effusion. No pleural effusion. No pneumothorax. No pneumomediastinum. Pulmonary patchy groundglass, bilaterally. No gross consolidation. No bronchiectasis. No honeycombing. No mediastinal or perihilar lymphadenopathy. There is sclerotic compression deformity representing 60-70% volume loss at T6. There is compression deformity representing 60% volume loss at T11, T12, and L1. The clavicles are intact. No acute fracture in the ribs. The scapula is intact bilaterally. CT/CT angio chest PE protocol IMPRESSION: No acute pulmonary artery emboli. Mild pulmonary edema. Displaced fracture, sternum. Compression fracture deformities at T6, T11, T12 and likely L1 pronounced at T6 probable subacute to old. Cardiomegaly. Coronary artery disease and atherosclerosis disease. Calcified mitral valve. Findings communicated via CRAiLAR to the provider Dr. Joni Deleon at 4:29 PM on April 14, 2025. Fleischner guidelines were followed. Electronically signed by: Adams Virk MD 04/14/2025 04:32 PM EDT
--- OUTSIDE RECORDS SUMMARY | 2025-04-14 15:44 | XMS_ITS | Encounter Summary ---
Author Organization [employer] Address [address] [facility] 7t [place] [address] Care Team Providers Care Photography Assistant Name Role Phone Sherice John MD Primary Care Provider [phone] Encounter Details Date Type Department Care Team (Late st Contact Info) Description 04/08/2025 Orders Only [facility] MEDICAL [address] [place] [address] Provider, MD Kiersten Social History Tobacco Use [...] your housing situation today? I have magda gato 01/01/[address] you li [...] degree (e.g., DEVENDRA, MS, Luis Eduardo, MEd, PATTERN SETTER, MARLIN) 02/17/2025 Comments Unknown Sex and Gender [...] Description 04/30/2025 10:30 AM EDT Office Visit [facility] OPTOMETRY [address] [place] [address] Parris Torres, YONI [address] [place] [address] 05/01/2025 10:00 AM EDT Office Visit [facility] MEDICAL [address] [place] [address] Sherice John MD [address] [place] [address] documented as of this encounter Procedures Procedure [...] on filedocumented in this encounter Care Teams Photography Assistant Relationship Specialty Start Date End Date Sherice John MD [address] [place] [address] PCP - General Internal Medicine 08/08/22 documented as of this encounter
--- OUTSIDE RECORDS SUMMARY | 2025-04-14 15:44 | XMS_ITS | Encounter Summary ---
Author Organization [facility] Address [address] [place] [address] Phone Care Team Providers Care Tax Assessor Name Role Phone Sherice John MD Primary Care Provider [phone] Deya Sotelo MD Unavailable Joni Deleon MD Unavailable Mikal Jones MD Unavailable [phone] Lulú Vizcaino Unavailable [phone] Encounter Details Date Type Department Care Team (Late st Contact Info) Description 12/15/2020 Ancillary Orders [facility],Outside Imaging [address] [place], [place] [id number] System, Provider Not In, PhD Partners [address] [address] Social History Tobacco Use Types Packs/Day Years [...] PM EDT Office Visit [facility] 22 [place] [address] Rogelio Torrez DO 22 [place] [address] [email or web address] 12/10/2025 10:40 AM EDT Appointment [facility] [address] [place] [address] Lulú Vizcaino MBBS 30 [place] [address] [email or web address] 12/10/2025 11:40 AM EDT Office Visit [facility] Miguel Angel 30 [place] [address] Lulú Vizcaino MBBS 30 [place] [address] [email or web address] 03/03/2026 8:30 AM EDT Telemedicine [facility] Cardiac Arrhythmia Service [address] [facility], 5th Floor, [address] [place] [address] Angel Domínguez MD [address] [facility] [place] [address] [email or web address] documented as of this encounter Results [...] documented as of this encounter Care Teams Tax Assessor Relationship Specialty Start Date End Date Sherice John MD [address] [place] [address] [email or web address] PCP - General Internal Medicine 03/08/18 Deya Sotelo MD [address] [address] [email or web address] Primary Oncologist Hematology and Oncology 11/27/2211/18 Joni Deleon MD [address] [place] [address] [place] [address] Pulmonary Disease 07/18/23 Mikal Jones MD 2 [facility] Center [address] [place] [address] Cardiology 07/23/23 Lulú Vizcaino MBBS 2 [facility] Center [address] [place] [address] [email or web address] Primary Oncologist Medical Oncology 11/29/23 documented as of this encounter Additional Source Comments The information contained in this document represents components of the legal health record. It is not the complete legal health record.[facility]
--- OUTSIDE RECORDS SUMMARY | 2025-04-14 15:45 | XMS_ITS | Encounter Summary ---
Author Organization [facility] Address [address] [place] [address] Phone Care Team Providers Care Bath House Attendant Name Role Phone Sherice John MD Primary Care Provider Deya Sotelo MD Unavailable Joni Deleon MD Unavailable Mikal Jones MD Unavailable Lulú Vizcaino [facility] Unavailable [phone] Encounter Details Date Type Department Care Team (Latest Contact Info) Description 06/10/2020 Transcribe Orders Virtual Department [address] [place] [address] Sherice John MD [address] [place] [address] [email or web address] Rib injury (Primary Dx) Social History Tobacco Use Types [...] PM EDT Office Visit [facility] 22 [place] [address] Rogelio Torrez DO 22 [place] [address] [email or web address] 12/10/2025 10:40 AM EDT Appointment [facility] 30 [place] [address] Lulú Vizcaino MBBS 30 [place] [address] [email or web address] 12/10/2025 11:40 AM EDT Office Visit [facility] [place] [address] [place] [address] Lulú Vizcaino MBBS [address] [place] [address] [email or web address] 03/03/2026 8:30 AM EDT Telemedicine [facility] Cardiac Arrhythmia Service [address] [facility], 5th Floor, [address] [place] [address] Angel Domínguez MD 55 [facility] [address] [place] [address] [email or web address] documented as of this encounter Results * XR RIBS 3 OR MORE VIEWS WITH PA CHEST (RIGHT) (06/10/2020 1:18 PM EDT) Anatomical Region Laterality Modality Chest Computed Radiogr aphy 06/10/2020 1:29 PM EDT Impressions 06/10/2020 1:36 PM EDT Nondisplaced right 8th through 10th rib fractures and right lung base atelectasis. Narrative 06/10/2020 1:36 PM EDT HISTORY: As above. COMPARISON: Right rib x-rays 06/01/2020. Chest x-ray 10/21/2019. RIGHT RIB RADIOGRAPH FINDINGS: 5 views obtained. Heart and mediastinum are normal. New right lung base atelectasis. No pneumothorax or definite effusion. Nondisplaced right 8th through 10th rib fractures are now apparent. Chronic mild L1 superior endplate compression fracture. No acute soft tissue findings. Procedure Note Brayden Venegas MD - 06/10/2020 HISTORY: As above. COMPARISON: Right rib x-rays 06/01/2020. Chest x-ray 10/21/2019. RIGHT RIB RADIOGRAPH FINDINGS: 5 views obtained. Heart and mediastinum are normal. New right lung base atelectasis. No pneumothorax or definite effusion. Nondisplaced right 8th through 10th rib fractures are now apparent.Chronic mild L1 superior endplate compression fracture. No acute soft tissue findings. IMPRESSION: Nondisplaced right 8th through 10th rib fractures and right lung baseatelectasis. Sherice John MD IMG XR CHEST Final Result documented in this encounter Visit Diagnoses Diagnosis Rib injury- Primary Sprain and strain of ribs Rib injury Sprain and strain of ribs documented in this encounter Additional Health Concerns Infection [...] documented as of this encounter Care Teams Bath House Attendant Relationship Specialty Start Date End Date Sherice John MD [address] [place] [address] [email or web address] PCP - General Internal Medicine 03/08/18 Deya Sotelo MD [address] [place] [address] [email or web address] Primary Oncologist Hematology and Oncology 11/27/2211/18 Joni Deleon MD [address] [place] [address] [place] [address] Pulmonary Disease 07/18/23 Mikal Jones MD [address] [place] [address] [address] [place] [address] Cardiology 07/23/23 Lulú Vizcaino MBBS 2 [facility] Center [address] [place] [address] [email or web address] Primary Oncologist Medical Oncology 11/29/23 documented as of this encounter Additional Source Comments The information contained in this document represents components of the legal health record. It is not the complete legal health record.[facility]
--- OUTSIDE RECORDS SUMMARY | 2025-04-14 15:45 | XMS_ITS | Encounter Summary ---
Author Organization [facility] Address [address] [place] [address] Phone Care Team Providers Care General Purchasing Agent Name Role Phone Sherice John MD Primary Care Provider Deya Sotelo MD Unavailable Joni Deleon MD Unavailable [phone] Mikal Jones MD Unavailable Lulú Vizcaino [facility] Unavailable [phone] Encounter Details Date Type Department Care Team (Late st Contact Info) Description 10/01/2020 Ancillary Orders Virtual Department 30 [place] [address] Sherice John MD [address] [place] [address] [email or web address] Breast screening Social History Tobacco Use Types Packs/Day Years [...] PM EDT Office Visit [facility] 22 [place] [address] Rogelio Torrez DO 22 [place] [address] [email or web address] 12/10/2025 10:40 AM EDT Appointment [facility] 30 [place] [address] Lulú Vizcaino MBBS 30 [place] [address] [email or web address] 12/10/2025 11:40 AM EDT Office Visit [facility] at [facility] [address] [place] [address] Lulú Vizcaino MBBS 30 [place] [address] [email or web address] 03/03/2026 8:30 AM EDT Telemedicine [facility] Cardiac Arrhythmia Service 32 [facility], 5th Floor, [address] [place] [address] Angel Domínguez MD 55 [facility] [address] [place] [address] [email or web address] documented as of this encounter Results * BI MAMMOGRAM SCREENING WITH TOMOSYNTHESIS WITH CAD (BILATERAL) (12/29/2020 10:26 AM EDT) Anatomical Region Laterality Modality Breast Left, Breast Right, Breast Bilateral Bila teral Mammography 12/29/2020 10:3 1 AM EDT Impressions 12/29/2020 10:33 AM EDT No mammographic change indicative of malignancy. Routine screening is recommended. BI-RADS CATEGORY: 1 - Negative. DENSITY: There are scattered fibroglandular densities. Narrative 12/29/2020 10:33 AM EDT Bilateral full-field digital screening mammography is obtained and read in conjunction with computer-aided detection. Tomosynthesis as well as 2-D C view imaging of both breasts in two planes also obtained. Comparison made to multiple prior, most recent August 27, 2019, and most remote April 18, 2011. No dominant mass, architectural distortion, worrisome asymmetry, or suspicious calcification is identified. No skin or nipple finding of concern is appreciated. Procedure Note Harinder Lopez MD - 12/29/2020 Bilateral full-field digital screening mammography is obtained and read inconjunction with computer-aided detection. Tomosynthesis as well as 2-D Cview imaging of both breasts in two planes also obtained. Comparison madeto multiple prior, most recent August 27, 2019, and most remote March. No dominant mass, architectural distortion, worrisome asymmetry, orsuspicious calcification is identified. No skin or nipple finding ofconcern is appreciated. IMPRESSION: No mammographic change indicative of malignancy. Routine screening isrecommended. BI-RADS CATEGORY: 1 - Negative. DENSITY: There are scattered fibroglandular densities. Sherice John MD IMG MG EXAMS Final Result documented in this encounter Visit Diagnoses Diagnosis Breast screening Breast screening, unspecified Breast screening Breast screening, unspecified documented in this encounter Additional Health Concerns [...] as of this encounter Care Teams General Purchasing Agent Relationship Specialty Start Date End Date Sherice John MD [address] [place] [address] [email or web address] PCP - General Internal Medicine 03/08/18 Deya Sotelo MD [address] [place] [address] [email or web address] Primary Oncologist Hematology and Oncology 11/27/2211/18 Joni Deleon MD [address] [place] [address] [place] [address] Pulmonary Disease 07/18/23 Mikal Jones MD 2 [facility] [address] [place] [address] Cardiology 07/23/23 Lulú Vizcaino MBBS 2 [facility] Center [address] [place] [address] [email or web address] Primary Oncologist Medical Oncology 11/29/23 documented as of this encounter Additional Source Comments The information contained in this document represents components of the legal health record. It is not the complete legal health record.[facility]
--- OUTSIDE RECORDS SUMMARY | 2025-04-14 15:45 | XMS_ITS | Encounter Summary ---
Author Organization [facility] Address [address] [place] [address] Phone Care Team Providers Care Cashier Name Role Phone Sherice John MD Primary Care Provider Deya Sotelo MD Unavailable Joni Deleon MD Unavailable Mikal Jones MD Unavailable [phone] [facility]ul[facility]aino [facility] Unavailable [phone] Encounter Details Date Type Department Care Team (Late st Contact Info) Description 11/04/2020 Transcribe Orders Virtual Department 30 [place] [address] Mary Hamilton MD 73 [place] [address] Cough (Primary Dx) Social History Tobacco Use Types [...] PM EDT Office Visit [facility] 22 [place] [address] Rogelio Torrez DO 22 [place] [address] [email or web address] 12/10/2025 10:40 AM EDT Appointment [facility] 30 [place] [address] Lulú Vizcaino MBBS 30 [place] [address] [email or web address] 12/10/2025 11:40 AM EDT Office Visit [facility] Center at [facility] 30 [place] [address] Lulú Vizcaino MBBS 30 [place] [address] [email or web address] 03/03/2026 8:30 AM EDT Telemedicine [facility] Cardiac Arrhythmia Service 32 [facility], 5th Floor, [address] [place] [address] Angel Domínguez MD 55 [facility] [address] [place] [address] [email or web address] documented as of this encounter Results * COVID-19 PCR Order (11/05/2020 9:15 AM EDT) COVID Testing Status Specimen received in analyzing lab. Results should be available within 24 to 48 hrs. [facility] Symptomatic? YES [facility] 11/05/2020 9:15 AM EDT 11/05/2020 12:39 PM EDT Mary Hamilton MD BODY FLUIDS AND STOOLS ORDERABLES Final Result [address] [address] [facility] [address] [place] [address] documented in this encounter Visit Diagnoses Diagnosis Cough- Primary documented in this encounter Additional Health Concerns Infection Onset Date Last Indicated Resolved Time CoV-Risk 11/04/2020 11/05/2020 11/14/2020 1:24 AM EDT CoV-Risk 03/13/2021 03/13/2021 03/23/2021 1:23 AM EDT CoV-Risk 05/27/2021 05/27/2021 06/06/2021 1:23 AM EDT CoV-Risk 06/16/2021 06/16/2021 06/26/2021 1:22 AM EDT CoV-Risk 07/04/2022 07/04/2022 07/15/2022 4:44 AM EST CoV-Risk 10/12/2022 10/12/2022 10/23/2022 1:22 AM EST CoV-Risk 10/25/2022 10/25/2022 11/05/2022 1:22 AM EDT CoV-Risk 11/24/2022 11/24/2022 12/05/2022 1:22 AM EDT documented as of this encounter Care Teams Cashier Relationship Specialty Start Date End Date Sherice John MD [address] [place] [address] [email or web address] PCP - General Internal Medicine 03/08/18 Deya Sotelo MD [facility] [address] [address] [email or web address] Primary Oncologist Hematology and Oncology 11/27/2211/18 Joni Deleon MD [address] [place] [address] [place] [address] Pulmonary Disease 07/18/23 Mikal Jones MD 2 [facility] [address] [place] [address] Cardiology 07/23/23 Lulú Vizcaino MBBS [address] [place] [address] Center [address] [place] [address] [email or web address] Primary Oncologist Medical Oncology 11/29/23 documented as of this encounter Additional Source Comments The information contained in this document represents components of the legal health record. It is not the complete legal health record.[facility]
--- OUTSIDE RECORDS SUMMARY | 2025-04-14 15:45 | XMS_ITS | Encounter Summary ---
Author Organization [facility] Address [address] [place] [address] Phone Care Team Providers Care Remote Advisor Name Role Phone Sherice John MD Primary Care Provider [phone] Joni Deleon MD Unavailable [phone] Mikal Jones MD Unavailable Lulú Vizcaino [facility] Unavailable Reason for Referral * MRI/CAT Scan - Closed Specialty Diagnoses / Procedures Referred By Tyler yeung Referred To Contact Radiology Diagnoses Syncope, unspecified syncope type Procedures MRI Brain Sherice John MD Phone: tel: fax: [email or web address] Referral ID Status Reason Start Date Expiration Date Visits Re quested Visits Authorized [id number] Closed 09/24/2024 09/24/2025 1 1 Encounter Details Date Type Department Care Team (Latest Contact Info) Description 09/24/2024 Transcribe Orders Virtual Department 30 [place] [address] Sherice John MD 73 [place] [address] Syncope, unspecified syncope type (Primary Dx) Social [...] as food, clothing, or medical care? No 05/06/2024 In the past 12 months have y ou been in a relationship with a person who hurts, threatens, or tries to control you? No 05/06/2024 Are you denied basic needs s uch as food, clothing, or medical care? No 05/06/2024 In the past 12 months have y ou been in a relationship with a person who hurts, threatens, or tries to control you? No 05/06/2024 Comments No Sex and Gender Information Value [...] PM EDT Office Visit [facility] 22 [place] [address] Rogelio Torrez DO 22 [place] [address] 12/10/2025 10:40 AM EDT Appointment [facility] 30 [place] [address] Lulú Vizcaino, JORGE 30 [place] [address] [email or web address] 12/10/2025 11:40 AM EDT Office Visit [facility] [place] 30 [place] [address] Lulú Vizcaino MBBS 30 [place] [address] [email or web address] 03/03/2026 8:30 AM EDT Telemedicine [facility] Cardiac Arrhythmia Service 32 [facility], 5th Floor, [address] [place] [address] Angel Domínguez MD 55 [facility] [address] [place] [address] [email or web address] documented as of this encounter Results * MRI BRAIN WITHOUT CONTRAST (10/22/2024 6:01 PM EST) Anatomical Region Laterality Modality Head Magnetic Resonan ce 10/23/2024 11:4 8 AM EST Impressions 10/23/2024 11:59 AM EST Unremarkable examination without acute intracranial abnormality. Narrative 10/23/2024 11:59 AM EST MRI BRAIN WITHOUT CONTRAST Referring clinician's provided indication for this examination in Epic: Outside Radiology Order; Syncope, unspecified syncope type TECHNIQUE: MRI BRAIN WITHOUT CONTRAST Multi-sequence, multi-planar MRI of the brain was performed without intravenous contrast. COMPARISON: CT HEAD WITHOUT CONTRAST FINDINGS: Brain Parenchyma: No evidence of acute infarct, mass or hemorrhage. There are scattered foci of T2 hyperintensity in the white matter, likely a manifestation of chronic small vessel disease. Ventricular System and Extra-Axial Spaces: The ventricles and cortical sulci are prominent, as commonly seen in patients of this age. No evidence of midline shift or hydrocephalus. Extracranial Structures: There are normal flow voids of the major intracranial vessels. The visualized paranasal sinuses appear clear. Fluid is noted in the right mastoid air cells, unchanged. Note is made of bilateral cataract extractions. Visualized soft tissues are unremarkable. Procedure Note Elizabeth Palomino MD - 10/23/2024 MRI BRAIN WITHOUT CONTRAST Referring clinician's provided indication for this examination in [facility]:Outside Radiology Order; Syncope, unspecified syncope type TECHNIQUE: MRI BRAIN WITHOUT CONTRAST Multi-sequence, multi-planar MRI of the brain was performed withoutintravenous contrast. COMPARISON: CT HEAD WITHOUT CONTRAST FINDINGS: Brain Parenchyma: No evidence of acute infarct, mass or hemorrhage. Thereare scattered foci of T2 hyperintensity in the white matter, likely amanifestation of chronic small vessel disease. Ventricular System and Extra-Axial Spaces: The ventricles and corticalsulci are prominent, as commonly seen in patients of this age. No evidenceof midline shift or hydrocephalus. Extracranial Structures: There are normal flow voids of the majorintracranial vessels. The visualized paranasal sinuses appear clear. Fluidis noted in the right mastoid air cells, unchanged. Note is made ofbilateral cataract extractions. Visualized soft tissues areunremarkable. IMPRESSION: Unremarkable examination without acute intracranial abnormality. Sherice John MD IMG MR HEAD/NECK Final Result documented in this encounter Visit Diagnoses Diagnosis Syncope, unspecified syncope type- Primary Syncope, unspecified syncope type documented in this encounter Care Teams Remote Advisor Relationship Specialty Start Date End Date Sherice John MD [address] [place] [address] [email or web address] PCP - General Internal Medicine 03/08/18 Joni Deleon MD [address] [place] [address] [place] [address] Pulmonary Disease 07/18/23 Mikal Jones MD [address] [place] [address] [place] [address] Cardiology 07/23/23 Lulú Vizcaino MBBS [address] [place] [address] [address] [place] [address] [email or web address] Primary Oncologist Medical Oncology 11/29/23 documented as of this encounter Additional Source Comments The information contained in this document represents components of the legal health record. It is not the complete legal health record.[facility]
--- OUTSIDE RECORDS SUMMARY | 2025-04-14 15:45 | XMS_ITS | Encounter Summary ---
Author Organization [facility] Address [address] [place] [address] Phone Care Team Providers Care Traverse Rod Assembler Name Role Phone Sherice John MD Primary Care Provider Deya Sotelo MD Unavailable Joni Deleon MD Unavailable Mikal Jones MD Unavailable [phone] Lulú Vizcaino [facility] Unavailable [phone] Encounter Details Date Type Department Care Team (Latest Contact Info) Description 11/04/2019 Transcribe Orders Virtual Department 30 [place] [address] Sherice John MD [address] [place] [address] [email or web address] Pneumonia due to infectious organism, unspecified laterality, unspecified part of lung (Primary Dx) Social History Tobacco Use Types [...] PM EDT Office Visit [facility] 22 [place] [address] Rogelio Torrez DO 22 [place] [address] [email or web address] 12/10/2025 10:40 AM EDT Appointment [facility] 30 [place] [address] Lulú Vizcaino MBBS 30 [place] [address] [email or web address] 12/10/2025 11:40 AM EDT Office Visit [facility] 30 [place] [address] Lulú Vizcaino MBBS 30 [place] [address] [email or web address] 03/03/2026 8:30 AM EDT Telemedicine [facility]iac [facility]hythmia Service 32 [facility], 5th Floor, [address] [place] [address] Angel Domínguez MD 55 [facility] [address] [place] [address] [email or web address] documented as of this encounter Visit Diagnoses Diagnosis Pneumonia due to infectious organism, unspecified laterality, unspecified part of lung- Primary documented in this encounter Additional Health [...] documented as of this encounter Care Teams Traverse Rod Assembler Relationship Specialty Start Date End Date Sherice John MD [address] [place] [address] [email or web address] PCP - General Internal Medicine 03/08/18 Deya Sotelo MD [address] [place] [address] [email or web address] Primary Oncologist Hematology and Oncology 11/27/2211/18 Joni Deleon MD [address] [place] [address] [place] [address] Pulmonary Disease 07/18/23 Mikal Jones MD 2 [facility] Center [address] [place] [address] Cardiology 07/23/23 Lulú Vizcaino MBBS 2 [facility] Center [address] [place] [address] [email or web address] Primary Oncologist Medical Oncology 11/29/23 documented as of this encounter Additional Source Comments The information contained in this document represents components of the legal health record. It is not the complete legal health record.[facility]
--- OUTSIDE RECORDS SUMMARY | 2025-04-14 15:45 | XMS_ITS | Encounter Summary ---
Author Organization [facility] Address [address] [place] [address] Phone Care Team Providers Care Pharmacy Cashier Name Role Phone Sherice oJhn MD Primary Care Provider Deya Sotelo MD Unavailable Joni Deleon MD Unavailable [phone] Mikal Jones MD Unavailable Lulú Vizcaino Unavailable [phone] Encounter Details Date Type Department Care Team (Late st Contact Info) Description 01/31/2023 Procedure Pass [facility], Ct Scan - [address] [address] Social History Tobacco Use Types Packs/Day Years Used Date Smoking Tobacco: Never Smokeless Tobacco: Never Alcohol Use Standard Drinks/Week Comments Yes 2 (1 standard drink = 0.6 oz pur e alcohol) Socially 3x/week Education Answer Date Recorded Are you interested in more education? Not on leland e 12/15/2022 Are you concerned about learning? Not on file 12/15/2022 No 12/15/2022 No 12/15/2022 Digital Access Answer Date Recorded No 01/15/2023 No 01/15/2023 Reliable internet access at home? Not on file 01/15/2023 Device with a working camera? Not on file Comments No Sex and Gender Information Value [...] PM EDT Office Visit [facility] 22 [place] [address] Rogelio Torrez DO 22 [place] [address] [email or web address] 12/10/2025 10:40 AM EDT Appointment [facility] 30 [place] [address] Lulú Vizcaino MBBS 30 [place] [address] [email or web address] 12/10/2025 11:40 AM EDT Office Visit [facility] [place] [facility] Angel 30 [place] [address] Lulú Vizcaino MBBS 30 [place] [address] [email or web address] 03/03/2026 8:30 AM EDT Telemedicine [facility] Cardiac Arrhythmia Service 32 [facility], 5th Floor, [address] [place] [address] Angel Domínguez MD 55 [facility] [address] [place] [address] [email or web address] documented as of this encounter Visit Diagnoses Not on filedocumented in this encounter Care Teams Pharmacy Cashier Relationship Specialty Start Date End Date Sherice John MD [address] [place] [address] [email or web address] PCP - General Internal Medicine 03/08/18 Deya Sotelo MD [address] [address] [email or web address] Primary Oncologist Hematology and Oncology 11/27/2211/18 Joni Deleon MD [address] [place] [address] [place] [address] Pulmonary Disease 07/18/23 Mikal Jones MD [address] [place] [address] [place] [address] Cardiology 07/23/23 Lulú Vizcaino MBBS [address] [place] [address] Center [address] [place] [address] [email or web address] Primary Oncologist Medical Oncology 11/29/23 documented as of this encounter Additional Source Comments The information contained in this document represents components of the legal health record. It is not the complete legal health record.[facility]
--- OUTSIDE RECORDS SUMMARY | 2025-04-14 15:45 | XMS_ITS | Encounter Summary ---
Author Organization [facility] Address [address] [place] [address] Phone Care Team Providers Care Cigar Head Holer Name Role Phone Sherice John MD Primary Care Provider Deya Sotelo MD Unavailable Joni Deleon MD Unavailable Mikal Jones MD Unavailable Lulú Vizcaino [facility] Unavailable [phone] Encounter Details Date Type Department Care Team (Latest Contact Info) Description 06/18/2020 Transcribe Orders Virtual Department 30 [place] [address] Sherice John MD [address] [place] [address] [email or web address] Closed fracture of multiple ribs of right side, initial encounter (Primary Dx) Social History Tobacco Use Types [...] PM EDT Office Visit [facility] 22 [place] [address] Rogelio Torrez DO 22 [place] [address] [email or web address] 12/10/2025 10:40 AM EDT Appointment [facility] 30 [place] [address] Lulú Vizcaino MBBS 30 [place] [address] [email or web address] 12/10/2025 11:40 AM EDT Office Visit [facility] Center at [facility] 30 [place] [address] Lulú Vizcaino MBBS 30 [place] [address] [email or web address] 03/03/2026 8:30 AM EDT Telemedicine [facility] Cardiac Arrhythmia Service 32 [facility], 5th Floor, [address] [place] [address] Angel Domínguez MD 55 [facility] [address] [place] [address] [email or web address] documented as of this encounter Results * XR RIBS 3 OR MORE VIEWS WITH PA CHEST (RIGHT) (07/21/2020 2:44 PM EST) Anatomical Region Laterality Modality Chest Computed Radiogr aphy 07/21/2020 2:59 PM EST Impressions 07/21/2020 3:09 PM EST 1.Interval healing right eighth through 10th rib fractures. 2.Resolved right lung base atelectasis. Narrative 07/21/2020 3:09 PM EST HISTORY: As above. COMPARISON: 06/10/2020. RIGHT RIB RADIOGRAPH FINDINGS: Views: 5. Lines/Tubes: None. Heart and Mediastinum: Stable. No acute findings. Lungs: Lungs are clear. Right lung base atelectasis has resolved. Bones: Interval healing right eighth through 10th rib fractures callus formation. No new fractures. Soft Tissues: No acute findings. Procedure Note Brayden Venegas MD - 07/21/2020 HISTORY: As above. COMPARISON: 06/10/2020. RIGHT RIB RADIOGRAPH FINDINGS: Views: 5. Lines/Tubes: None. Heart and Mediastinum: Stable. No acute findings. Lungs: Lungs are clear. Right lung base atelectasis has resolved. Bones: Interval healing right eighth through 10th rib fractures callusformation. No new fractures. Soft Tissues: No acute findings. IMPRESSION: 1.Interval healing right eighth through 10th rib fractures. 2.Resolved right lung base atelectasis. Sherice John MD IMG XR CHEST Final Result documented in this encounter Visit Diagnoses Diagnosis Closed fracture of multiple ribs of right side, initial encounter- Primary Closed fracture of multiple ribs of right side, initial encounter documented in this encounter Additional Health Concerns [...] documented as of this encounter Care Teams Cigar Head Holer Relationship Specialty Start Date End Date Sherice John MD [address] [place] [address] [email or web address] PCP - General Internal Medicine 03/08/18 Deya Sotelo MD [address] [place] [address] [email or web address] Primary Oncologist Hematology and Oncology 11/27/2211/18 Joni Deleon MD [address] [place] [address] [place] [address] Pulmonary Disease 07/18/23 Mikal Jones MD [address] [place] [address] [place] [address] Cardiology 07/23/23 Lulú Vizcaino MBBS 2 [facility] Center [address] [place] [address] [email or web address] Primary Oncologist Medical Oncology 11/29/23 documented as of this encounter Additional Source Comments The information contained in this document represents components of the legal health record. It is not the complete legal health record.[facility]
--- OUTSIDE RECORDS SUMMARY | 2025-04-14 15:45 | XMS_ITS | Encounter Summary ---
Author Organization [facility] Address [address] [place] [address] Phone Care Team Providers Care Financial Service Professional Name Role Phone Sherice John MD Primary Care Provider Deya Sotelo MD Unavailable Joni Deleon MD Unavailable Mikal Jones MD Unavailable Lulú Vizcaino Unavailable [phone] Encounter Details Date Type Department Care Team (Late st Contact Info) Description 10/01/2020 Procedure Pass [facility], [address] [address] Social History Tobacco Use Types Packs/Day Years Used Date Smoking Tobacco: Never Smokeless Tobacco: Never Alcohol Use Standard Drinks/Week Comments Yes 0 (1 standard drink = 0.6 oz pur e alcohol) Comments No Sex and Gender Information Value [...] PM EDT Office Visit [facility] 22 [place] [address] Rogelio Torrez DO 22 [place] [address] [email or web address] 12/10/2025 10:40 AM EDT Appointment [facility] 30 [place] [address] Lulú Vizcaino MBBS 30 [place] [address] [email or web address] 12/10/2025 11:40 AM EDT Office Visit [facility] Center at [facility] [address] 30 [place] [address] Lulú Vizcaino MBBS [address] [place] [address] [email or web address] 03/03/2026 8:30 AM EDT Telemedicine [facility] Cardiac Arrhythmia Service 32 [facility], 5th Floor, [address] [place] [address] Angel Domínguez MD 55 [facility] [place] [address] [email or web address] documented as of this encounter Visit Diagnoses [...] documented as of this encounter Care Teams Financial Service Professional Relationship Specialty Start Date End Date Sherice John MD [address] [place] [address] [email or web address] PCP - General Internal Medicine 03/08/18 Deya Sotelo MD [address] [place] [address] [email or web address] Primary Oncologist Hematology and Oncology 11/27/2211/18 Joni Deleon MD [address] [place] [address] [place] [address] Pulmonary Disease 07/18/23 Mikal Jones MD [address] [place] [address] [place] [address] Cardiology 07/23/23 Lulú Vizcaino MBBS 2 [facility] Center [address] [place] [address] [email or web address] Primary Oncologist Medical Oncology 11/29/23 documented as of this encounter Additional Source Comments The information contained in this document represents components of the legal health record. It is not the complete legal health record.[facility]
--- OUTSIDE RECORDS SUMMARY | 2025-04-14 15:45 | XMS_ITS | Encounter Summary ---
Author Organization [employer] Address 75 [facility] 7t [place] [address] Care Team Providers Care Painter Touch Up Name Role Phone Sherice John MD Primary Care Provider [phone] Encounter Details Date Type Department Care Team (Late st Contact Info) Description 09/23/2024 Orders Only [facility] [address] [place] [address] Sherice John MD 73 [place] [address] Social History Tobacco Use Types Packs/Day Years [...] Description 04/30/2025 10:30 AM EDT [facility] OPT[facility] 73 [place] [address] Parris Torres, OD 73 [place] [address] 05/01/2025 10:00 AM EDT Office [facility] MEDICAL 73 [place] [address] Sherice John MD [address] [place] [address] documented as of this encounter Procedures Procedure Name Priority Date/Time Associated Diagnosis Comments HM COLONOSCOPY Routine 05/06/2024 1:27 PM EDT documented in this encounter Results * Hm Colonoscopy (05/06/2024 1:27 PM EDT) Sherice John MD HEALTH MAINTENANCE Final Result documented in this encounter Visit Diagnoses Not on filedocumented in this encounter Care Teams Painter Touch Up Relationship Specialty Start Date End Date Sherice John MD [address] [place] [address] PCP - General Internal Medicine 08/08/22 documented as of this encounter
--- OUTSIDE RECORDS SUMMARY | 2025-04-14 15:45 | XMS_ITS | Encounter Summary ---
Author Organization [facility] Address [address] [place] [address] [address] [place] [address] Phone Care Team Providers Care Metal Miner Name Role Phone Sherice John MD Primary Care Provider Deya Sotelo MD Unavailable Joni Deleon MD Unavailable Mikal Jones MD Unavailable [phone] Lulú Vizcaino [facility] Unavailable Encounter Details Date Type Department Care Team (Late st Contact Info) Description 06/07/2023 Procedure Pass [facility] 32 [facility], 5th Floor, [address] [place] [address] Social History Tobacco Use Types Packs/Day Years [...] PM EDT Office Visit [facility] 22 [place] [address] Rogelio Torrez DO 22 [place] [address] [email or web address] 12/10/2025 10:40 AM EDT Appointment [facility] 30 [place] [address] Lulú Vizcaino MBBS 30 [place] [address] [email or web address] 12/10/2025 11:40 AM EDT Office Visit [facility] at [facility] 30 [place] [address] Lulú Vizcaino MBBS [address] [place] [address] [email or web address] 03/03/2026 8:30 AM EDT Telemedicine [facility] Cardiac Arrhythmia Service 32 [facility], 5th Floor, [address] [place] [address] Angel Domínguez MD 55 [facility] [address] [place] [address] [email or web address] documented as of this encounter Visit Diagnoses Not on filedocumented in this encounter Care Teams Metal Miner Relationship Specialty Start Date End Date Sherice John MD [address] [place] [address] [email or web address] PCP - General Internal Medicine 03/08/18 Deya Sotelo MD [address] [address] [email or web address] Primary Oncologist Hematology and Oncology 11/27/2211/18 Joni Deleon MD [address] [place] [address] [place] [address] Pulmonary Disease 07/18/23 Mikal Jones MD [address] [place] [address] [address] [place] [address] Cardiology 07/23/23 Lulú Vizcaino MBBS [address] [place] [address] Center [address] [place] [address] [email or web address] Primary Oncologist Medical Oncology 11/29/23 documented as of this encounter Additional Source Comments The information contained in this document represents components of the legal health record. It is not the complete legal health record.[facility]
--- OUTSIDE RECORDS SUMMARY | 2025-04-14 15:45 | XMS_ITS | Encounter Summary ---
Author Organization [facility] Address [address] [place] [address] Phone Care Team Providers Care Tenter Feeder Name Role Phone Sherice John MD Primary Care Provider Deya Sotelo MD Unavailable Joni Deleon MD Unavailable Mikal Jones MD Unavailable Lulú Vizcaino Unavailable Encounter Details Date Type Department Care Team (Late st Contact Info) Description 11/29/2018 Procedure Pass [facility], [address] [address] Social History Tobacco Use Types Packs/Day Years [...] PM EDT Office Visit [facility] 22 [place] [address] Rogelio Torrez DO 22 [place] [address] [email or web address] 12/10/2025 10:40 AM EDT Appointment [facility] 30 [place] [address] Lulú Vizcaino, BERNABE 30 [place] [address] [email or web address] 12/10/2025 11:40 AM EDT Office Visit [facility] Center at [facility] 30 [place] [address] Lulú Vizcaino, [facility] 30 [place] [address] [email or web address] 03/03/2026 8:30 AM EDT Telemedicine [facility] Cardiac Arrhythmia Service [address] [facility], 5th Floor, [address] [place] [address] Angel Domínguez MD [facility] [place] [address] [email or web address] documented as of this encounter Visit [...] documented as of this encounter Care Teams Tenter Feeder Relationship Specialty Start Date End Date Sherice John MD [address] [place] [address] [email or web address] PCP - General Internal Medicine 03/08/18 Deya Sotelo MD [address] [address] [email or web address] Primary Oncologist Hematology and Oncology 11/27/2211/18 Joni Deleon MD [address] [place] [address] [place] [address] Pulmonary Disease 07/18/23 Mikal Jones MD [address] [place] [address] [place] [address] Cardiology 07/23/23 Lulú Vizcaino MBBS [address] [place] [address] [place] [address] [email or web address] [email or web address] Primary Oncologist Medical Oncology 11/29/23 documented as of this encounter Additional Source Comments The information contained in this document represents components of the legal health record. It is not the complete legal health record.[facility]
--- OUTSIDE RECORDS SUMMARY | 2025-04-14 15:45 | XMS_ITS | Encounter Summary ---
Author Organization [facility] Address [address] [place] [address] [address] [place] [address] Phone Care Team Providers Care Wholesale Representative Name Role Phone Sherice John MD Primary Care Provider Deya Sotelo MD Unavailable Joni Deleon MD Unavailable Mikal Jones MD Unavailable Lulú Vizcaino [facility] Unavailable [phone] Encounter Details Date Type Department Care Team (Late st Contact Info) Description 07/25/2023 Procedure Pass [facility] Holter Lab 32 [facility], 5th Floor, [address] [place] [address] Social History Tobacco Use Types Packs/Day Years [...] PM EDT Office Visit [facility] 22 [place] [address] Rogelio Torrez DO 22 [place] [address] [email or web address] 12/10/2025 10:40 AM EDT Appointment [facility] 30 [place] [address] Lulú Vizcaino MBBS 30 [place] [address] [email or web address] 12/10/2025 11:40 AM EDT Office Visit [facility] 30 [place] [address] Lulú Vizcaino MBBS [address] [place] [address] [email or web address] 03/03/2026 8:30 AM EDT Telemedicine [facility] Cardiac Arrhythmia Service 32 [facility], 5th Floor, [address] [place] [address] Angel Domínguez MD 55 [facility] [address] [place] [address] [email or web address] documented as of this encounter Visit Diagnoses Not on filedocumented in this encounter Care Teams Wholesale Representative Relationship Specialty Start Date End Date Sherice John MD [address] [place] [address] [email or web address] PCP - General Internal Medicine 03/08/18 Deya Sotelo MD [address] [address] [email or web address] Primary Oncologist Hematology and Oncology 11/27/2211/18 Joni Deleon MD [address] [place] [address] [place] [address] Pulmonary Disease 07/18/23 Mikal Jones MD [address] [place] [address] [address] [place] [address] Cardiology 07/23/23 Lulú Vizcaino MBBS [address] [place] [address] Center [address] [place] [address] [email or web address] .[email or web address] Primary Oncologist Medical Oncology 11/29/23 documented as of this encounter Additional Source Comments The information contained in this document represents components of the legal health record. It is not the complete legal health record.[facility]
--- OUTSIDE RECORDS SUMMARY | 2025-04-14 15:46 | XMS_ITS | Encounter Summary ---
Author Organization [facility] Address [address] [place] [address] [address] [place] [address] Phone Care Team Providers Care Turnaround Planner Name Role Phone Sherice John MD Primary Care Provider Deya Sotelo MD Unavailable Joni Deleon MD Unavailable Mikal Jones MD Unavailable Lulú Vizcaino [facility] Unavailable [phone] Encounter Details Date Type Department Care Team (Late st Contact Info) Description 09/26/2023 Procedure Pass [facility] Holter Lab 32 [facility], 5th Floor, [address] [place] [address] Social History Tobacco Use Types Packs/Day Years [...] PM EDT Office Visit [facility] 22 [place] [address] Rogelio Torrez DO 22 [place] [address] [email or web address] 12/10/2025 10:40 AM EDT Appointment [facility] 30 [place] [address] Lulú Vizcaino MBBS 30 [place] [address] [email or web address] 12/10/2025 11:40 AM EDT Office Visit [facility] Cancer Center at [facility] 30 [place] [address] Lulú Vizcaino MBBS [address] [place] [address] [email or web address] 03/03/2026 8:30 AM EDT Telemedicine [facility] Cardiac Arrhythmia Service 32 [facility] [place] [facility], 5th Floor, [address] [place] [address] Angel Domínguez MD 55 [facility] [address] [place] [address] [email or web address] documented as of this encounter Visit Diagnoses Not on filedocumented in this encounter Care Teams Turnaround Planner Relationship Specialty Start Date End Date Sherice John MD [address] [place] [address] [email or web address] PCP - General Internal Medicine 03/08/18 Deya Sotelo MD [address] [address] [email or web address] Primary Oncologist Hematology and Oncology 11/27/2211/18 Joni Deleon MD [address] [place] [address] [place] [address] Pulmonary Disease 07/18/23 Mikal Jones MD [address] [place] [address] [address] [place] [address] Cardiology 07/23/23 Lulú Vizcaino MBBS [address] [place] [address] Center [address] [place] [address] [email or web address] Primary Oncologist Medical Oncology 11/29/23 documented as of this encounter Additional Source Comments The information contained in this document represents components of the legal health record. It is not the complete legal health record.[facility]
--- OUTSIDE RECORDS SUMMARY | 2025-04-14 15:46 | XMS_ITS | Encounter Summary ---
Author Organization [facility] Address [address] [place] [address] Phone Care Team Providers Care Microcomputer Technician Name Role Phone Sherice John MD Primary Care Provider [phone] Deya Sotelo MD Unavailable Joni Deleon MD Unavailable Mikal Jones MD Unavailable [phone] Lulú Vizcaino Unavailable [phone] Encounter Details Date Type Department Care Team (Late st Contact Info) Description 10/25/2023 Procedure Pass [facility] [place], [address] [address] Social History Tobacco Use Types Packs/Day Years [...] PM EDT Office Visit [facility] 22 [place] [address] Rogelio Torrez DO 22 [place] [address] [email or web address] 12/10/2025 10:40 AM EDT Appointment [facility] 30 [place] [address] Lulú Vizcaino MBBS 30 [place] [address] [email or web address] 12/10/2025 11:40 AM EDT Office Visit [facility] at [place] [address] 30 [place] [address] Lulú Vizcaino MBBS 30 [place] [address] [email or web address] 03/03/2026 8:30 AM EDT Telemedicine [facility] Cardiac Arrhythmia Service 32 [facility], 5th Floor, [address] [place] [address] Angel Domínguez MD 55 [facility] [address] [place] [address] [email or web address]@[email or web address] documented as of this encounter Visit Diagnoses Not on filedocumented in this encounter Care Teams Microcomputer Technician Relationship Specialty Start Date End Date Sherice John MD [address] [place] [address] [email or web address] PCP - General Internal Medicine 03/08/18 Deya Sotelo MD [address] [address] [email or web address] Primary Oncologist Hematology and Oncology 11/27/2211/18 Joni Deleon MD [address] [place] [address] [place] [address] Pulmonary Disease 07/18/23 Mikal Jones MD [address] [place] [address] [place] [address] Cardiology 07/23/23 Lulú Vizcaino MBBS [address] [place] [address] Center [address] [place] [address] [email or web address] Primary Oncologist Medical Oncology 11/29/23 documented as of this encounter Additional Source Comments The information contained in this document represents components of the legal health record. It is not the complete legal health record.[facility]
--- OUTSIDE RECORDS SUMMARY | 2025-04-14 15:46 | XMS_ITS | Encounter Summary ---
Author Organization [employer] Address 75 [facility] 7t [place] [address] Care Team Providers Care Chiller Hand Name Role Phone Sherice John MD Primary Care Provider [phone] Encounter Details Date Type Department Care Team (Late st Contact Info) Description 01/07/2024 Orders Only [facility] 58 [place] [address] Sherice John MD 73 [place] [address] Social History Tobacco Use Types Packs/Day Years [...] Description 04/30/2025 10:30 AM EDT Office Visit [facility]] OPTOMETRY 73 [place] [address] Parris Torres, OD 73 [place] [address] 05/01/2025 10:00 AM EDT Office Visit [facility][1] MEDICAL 73 [place] [address] Sherice John MD [address] [place] [address] documented as of this encounter Procedures Procedure [...] on filedocumented in this encounter Care Teams Chiller Hand Relationship Specialty Start Date End Date Sherice John MD [address] [place] [address] PCP - General Internal Medicine 08/08/22 documented as of this encounter
--- OUTSIDE RECORDS SUMMARY | 2025-04-14 15:46 | XMS_ITS | Encounter Summary ---
Author Organization [facility] Address [address] [place] [address] [place] [address] Phone Care Team Providers Care Tire Adjuster Name Role Phone Sherice John MD Primary Care Provider [phone] Joni Deleon MD Unavailable Mikal Jones MD Unavailable Lulú Vizcaino [facility] Unavailable Encounter Details Date Type Department Care Team (Late st Contact Info) Description 01/01/2024 Procedure Pass [facility] 32 [facility], 5th Floor, [address] [place] [address] Social History Tobacco Use Types Packs/Day Years [...] PM EDT Office Visit [facility] [address] [place] [address] Rogelio Torrez DO 22 [place] [address] [email or web address] 12/10/2025 10:40 AM EDT Appointment [facility] 30 [place] [address] Lulú Vizcaino MBBS 30 [place] [address] [email or web address] 12/10/2025 11:40 AM EDT Office [facility] [place] 30 [place] [address] Lulú Vizcaino MBBS 30 [place] [address] [email or web address] 03/03/2026 8:30 AM EDT Telemedicine [facility] Cardiac Arrhythmia Service 32 [facility], 5th Floor, [address] [place] [address] Angel Domínguez MD 55 [facility] [address] [place] [address] [email or web address] documented as of this encounter Visit Diagnoses Not on filedocumented in this encounter Care Teams Tire Adjuster Relationship Specialty Start Date End Date Sherice John MD [address] [place] [address] [email or web address] PCP - General Internal Medicine 03/08/18 Joni Deleon MD [address] [place] [address] [place] [address] Pulmonary Disease 07/18/23 Mikal Jones MD [address] [place] [address] [address] [place] [address] Cardiology 07/23/23 Lulú Vizcaino MBBS 2 [facility] [address] [place] [address] [email or web address] Primary Oncologist Medical Oncology 11/29/23 documented as of this encounter Additional Source Comments The information contained in this document represents components of the legal health record. It is not the complete legal health record.[facility]
--- OUTSIDE RECORDS SUMMARY | 2025-04-14 15:46 | XMS_ITS | Encounter Summary ---
Author Organization [facility] Address [address] [place] [address] Phone Care Team Providers Care Pump Erector Helper Name Role Phone Sherice John MD Primary Care Provider Deya Sotelo MD Unavailable Joni Deleon MD Unavailable Mikal Jones MD Unavailable Lulú Vizcaino Unavailable Encounter Details Date Type Department Care Team (Late st Contact Info) Description 11/29/2018 Procedure Pass [facility], [address] [address] Social History Tobacco Use Types Packs/Day Years [...] PM EDT Office Visit [facility] [address] [place] [address] Rogelio Torrez DO 22 [place] [address] [email or web address] 12/10/2025 10:40 AM EDT Appointment [facility] 30 [place] [address] Lulú Vizcaino, BERNABE 30 [place] [address] [email or web address] 12/10/2025 11:40 AM EDT Office Visit [facility] 30 [place] [address] Lulú Vizcaino, [facility] 30 [place] [address] [email or web address] 03/03/2026 8:30 AM EDT Telemedicine [facility] Cardiac Arrhythmia Service 32 [facility], 5th Floor, [address] [place] [address] Angel Domínguez MD [facility] [place] [address] [email or web address] documented as of this encounter [...] documented as of this encounter Care Teams Pump Erector Helper Relationship Specialty Start Date End Date Sherice John MD [address] [place] [address] [email or web address] PCP - General Internal Medicine 03/08/18 eDya Sotelo MD [address] [address] [email or web address] Primary Oncologist Hematology and Oncology 11/27/2211/18 Joni Deleon MD [address] [place] [address] [place] [address] Pulmonary Disease 07/18/23 Mikal Jones MD [address] [place] [address] [place] [address] Cardiology 07/23/23 Lulú Vizcaino MBBS [address] [place] [address] [place] [address] [email or web address] Primary Oncologist Medical Oncology 11/29/23 documented as of this encounter Additional Source Comments The information contained in this document represents components of the legal health record. It is not the complete legal health record.[facility]
--- OUTSIDE RECORDS SUMMARY | 2025-04-14 15:46 | XMS_ITS | Encounter Summary ---
Author Organization [facility] Address [address] [place] [address] [place] [address] Phone Care Team Providers Care Psych Specialist Name Role Phone Sherice John MD Primary Care Provider [phone] Joni Deleon MD Unavailable Mikal Jones MD Unavailable Lulú Vizcaino [facility] Unavailable Encounter Details Date Type Department Care Team (Late st Contact Info) Description 05/06/2024 Procedure Pass [facility] Admitting Dept Virtual Department 30 [place] [address] Social History Tobacco Use Types Packs/Day Years [...] PM EDT Office Visit [facility] 22 [place] [address] Rogelio Torrez DO 22 [place] [address] 12/10/2025 10:40 AM EDT Appointment [facility] 30 [place] [address] Lulú Vizcaino MBBS 30 [place] [address] [email or web address] 12/10/2025 11:40 AM EDT Office Visit [facility] [place] 30 [place] [address] Lulú Vizcaino MBBS 30 [place] [address] [email or web address] 03/03/2026 8:30 AM EDT Telemedicine [facility] Cardiac Arrhythmia Service 32 [facility], 5th Floor, [address] [place] [address] Angel Domínguez MD 55 [facility] [address] [place] [address] [email or web address] documented as of this encounter Visit Diagnoses Not on filedocumented in this encounter Care Teams Psych Specialist Relationship Specialty Start Date End Date Sherice John MD 73 [place] [address] [email or web address] PCP - General Internal Medicine 03/08/18 Joni Deleon MD [address] [place] [address] [place] [address] Pulmonary Disease 07/18/23 Mikal Jones MD [address] [facility] [address] [place] [address] Cardiology 07/23/23 Lulú Vizcaino MBBS [address] [facility] [address] [place] [address] [email or web address] Primary Oncologist Medical Oncology 11/29/23 documented as of this encounter Additional Source Comments The information contained in this document represents components of the legal health record. It is not the complete legal health record.[facility]
--- OUTSIDE RECORDS SUMMARY | 2025-04-14 15:46 | XMS_ITS | Encounter Summary ---
Author Organization [employer] Address [address] [facility] 7t [place] [address] Care Team Providers Care Parquet Floor Layer'S Helper Name Role Phone Sherice John MD Primary Care Provider [phone] Encounter Details Date Type Department Care Team (Late st Contact Info) Description 02/24/2025 Orders Only [facility] [address] [place] [address] Sherice John MD 73 [place] [address] Social History Tobacco Use Types Packs/Day Years [...] degree (e.g., DEVENDRA, MS, Luis Eduardo, MEd, DEVELOPMENT COORDINATOR, MARLIN) 02/17/2025 Comments Unknown Sex and Gender [...] Description 04/30/2025 10:30 AM EDT Office Visit [facility] OPTOMETRY [address] [place] [address] Parris Torres OD 73 [place] [address] 05/01/2025 10:00 AM EDT Office Visit [facility] MEDICAL [address] [place] [address] Sherice John MD 73 [place] [address] documented as of this encounter Procedures Procedure Name Priority Date/Time Associated Diagnosis Comments XR RIBS BILATERAL 4+ VW W PA CHEST Routine 02/24/2025 12:58 PM EDT documented in this encounter Results * XR RIBS BILATERAL 4+ VW W PA CHEST (02/24/2025 12:58 PM EDT) Anatomical Region Laterality Modality Rib, Abdomen Bilateral Radiographic Tami ging Sherice John MD IMG XR PROCEDURES Final Result documented in this encounter Visit Diagnoses Not on filedocumented in this encounter Care Teams Parquet Floor Layer'S Helper Relationship Specialty Start Date End Date Sherice John MD 73 [place] [address] PCP - General Internal Medicine 08/08/22 documented as of this encounter
--- OUTSIDE RECORDS SUMMARY | 2025-04-14 15:46 | XMS_ITS | Encounter Summary ---
Author Organization [facility] Address [address] [place] [address] [place] [address] Phone Care Team Providers Care Education Spec Name Role Phone Sherice John MD Primary Care Provider Joni Deleon MD Unavailable Mikal Jones MD Unavailable [phone] Lulú Vizcaino [facility] Unavailable [phone] Encounter Details Date Type Department Care Team (Late st Contact Info) Description 05/05/2024 Procedure Pass [facility] Endoscopy Admitting Dept Virtual Department 30 [place] [address] Social History Tobacco Use Types Packs/Day Years [...] PM EDT Office Visit [facility] 22 [place] [address] Rogelio Torrez DO 22 [place] [address] 12/10/2025 10:40 AM EDT Appointment [facility] 30 [place] [address] Lulú Vizcaino MBBS 30 [place] [address] [email or web address] 12/10/2025 11:40 AM EDT Office Visit [facility] [place] 30 [place] [address] Lulú Vizcaino MBBS 30 [place] [address] [email or web address] 03/03/2026 8:30 AM EDT Telemedicine [facility] Cardiac Arrhythmia Service 32 [facility], 5th Floor, [address] [place] [address] Angel Domínguez MD 55 [facility] [address] [place] [address] [email or web address] documented as of this encounter Visit Diagnoses Not on filedocumented in this encounter Care Teams Education Spec Relationship Specialty Start Date End Date Sherice John MD 73 [place] [address] [email or web address] PCP - General Internal Medicine 03/08/18 Joni Deleon MD [address] [place] [address] [place] [address] Pulmonary Disease 07/18/23 Mikal Jones MD 2 [facility] [address] [place] [address] Cardiology 07/23/23 Lulú Vizcaino MBBS 2 [facility] [address] [place] [address] [email or web address] Primary Oncologist Medical Oncology 11/29/23 documented as of this encounter Additional Source Comments The information contained in this document represents components of the legal health record. It is not the complete legal health record.[facility]
--- OUTSIDE RECORDS SUMMARY | 2025-04-14 15:46 | XMS_ITS | Encounter Summary ---
Author Organization [facility] Address [address] [place] [address] [place] [address] Phone Care Team Providers Care Insurance Salesman Name Role Phone Pauline Paulino MD Primary Care Provider Joni Deleon MD Unavailable Mikal Jones MD Unavailable [phone] Lulú Vizcaino [facility] Unavailable [phone] Encounter Details Date Type Department Care Team (Latest Contact Info) Description 06/20/2024 Transcribe Orders Virtual Department 30 [place] [address] Pauline Paulino MD 73 [place] [address] Osteoporosis with current pathological fracture, unspecified osteoporosis type, sequela (Primary Dx) Social History Tobacco Use Types [...] 1:00 PM EDT Office Visit [facility] [address] [place] [address] Rogelio Torrez DO [address] [place] [address] 12/10/2025 10:40 AM EDT Appointment [facility] [address] [place] [address] Lulú Vizcaino MBBS [address] [place] [address] [email or web address] 12/10/2025 11:40 AM EDT Office Visit [facility] 30 [place] [address] Lulú Vizcaino MBBS [address] [place] [address] [email or web address] 03/03/2026 8:30 AM EDT Telemedicine [facility] Cardiac Arrhythmia Service 32 [facility], 5th Floor, [address] [place] [address] Angel Domínguez MD 55 [facility] [address] [place] [address] [email or web address] documented as of this encounter Results * BD DXA AXIAL (SPINE) WITH HIP (11/24/2024 2:28 PM EDT) Anatomical Region Laterality Modality Bone Density Bone Density 11/24/2024 2:16 PM EDT Impressions 11/25/2024 12:54 PM EDT Interpretation: Osteopenia. Narrative 11/25/2024 12:54 PM EDT Referred By: PAULINE PAULINO Indications: Osteoporosis Scanner: [employer] A with serial# of [id number] located at [facility] Bone Density Scan (DXA) 11/24/24 Details of prior DXA scans are available by clicking View Full Report BMD T- Z- Skeletal Site gm/cm2 score score BMD Change Since Prior Scan ------ ----- ----- PA Spine (L1-L4) 0.801 -2.20 0.00 N/A Total Hip (Left) 0.808 -1.10 0.50 N/A Femoral Neck (Left) 0.728 -1.10 0.80 N/A Total Hip (Right) 0.813 -1.10 0.60 N/A Femoral Neck (Right) 0.838 -0.10 1.80 N/A ------ ----- ----- * Denotes significant change when >= 0.022 g/cm2 for the spine, 0.027 g/cm2 for the total hip, 0.029 g/cm2 for the femoral neck. Interpretation: Osteopenia. Technical Quality: Imaging of all sites was of adequate quality. FRAX: Based on FRAX(r) 3.6 ([place] White female), this patient's likelihood of hip fracture is 4.7% and major osteoporotic fracture is 21.1% over the next 10 years. The patient reported the following risks of fracture on a questionnaire: previous fracture as an adult and parental history of hip fracture. Reviewed By: Janis Sahu MD on 11/25/2024 12:54:03 Additional Information: -World Health Organization criteria classify adults based on lowest T-score at PA spine, hip or forearm: Normal (T-score >= -1.0), Osteopenia (T-score between -1 and -2.5), or Osteoporosis (T-score <= -2.5). At [facility], T-scores are compared to peak bone density of a young white gender matched reference population. - For premenopausal women and men under the age of 50, Z-scores (comparison to age, gender, and ethnicity matched reference population) are used: Above expected range for age (Z-score >= 2.0), Within expected range of age (Z-score 1.9 to -1.9), or Below expected range for age (Z-score <= -2.0). - The Bone Health and Osteoporosis Foundation recommends that treatment be considered in men aged more than 50 years and in postmenopausal women with ANY of the following: Prior hip or vertebral fractures; T-score of <= -2.5 at the PA spine or hip; or 10 year fracture probability by FRAX of >= 3% for the hip or >= 20% for major osteoporotic fracture. - The FRAX algorithm (https://www.keturah.ac.uk/FRAX/tool.aspx) is designed to predict 10-year fracture risk in treatment-naive adults between the ages of 40 and 90. It is not intended to be used in those receiving pharmacologic osteoporosis treatment. - The TBS is derived from the texture of the DXA spine image and has been shown to be related to bone microarchitecture and fracture risk. This data provides information independent of BMD value. It adds to fracture risk assessment with a FRAX adjusted for TBS score. If your patient had a TBS and qualified for a FRAX score, the reported FRAX score has been adjusted for TBS. TBS Score Interpretation 1.350 and greater Normal bone microarchitecture 1.200 to 1.350 Partially degraded bone microarchitecture 1.200 and less Degraded bone microarchitecture - Including race/ethnicity in the generation of T- or Z-scores or in the FRAX calculation is complicated, and currently undergoing active review to ensure that we can give patients the best information on their risk of fracture. - Some prior studies may not be compatible with our comparison software. - Click on View Full Report to see subsequent pages with images and prior bone density results. Procedure Note Janis Sahu MD - 11/25/2024 Referred By: PAULINE PAULINO Indications: Osteoporosis Scanner: [employer] A with serial# of [id number] located at [facility] Bone Density Scan (DXA) 11/24/24 Details of prior DXA scans are available by clicking View Full Report BMD T- Z- Skeletal Site gm/cm2 score score BMD Change Since Prior Scan ------ ----- PA Spine (L1-L4) 0.801 -2.20 0.00 N/A Total Hip (Left) 0.808 -1.10 0.50 N/A Femoral Neck (Left) 0.728 -1.10 0.80 N/A Total Hip (Right) 0.813 -1.10 0.60 N/A Femoral Neck (Right) 0.838 -0.10 1.80 N/A ------ ----- * Denotes significant change when >= 0.022 g/cm2 for the spine, 0.027g/cm2 for the total hip, 0.029 g/cm2 for the femoral neck. Interpretation: Osteopenia. Technical Quality: Imaging of all sites was of adequate quality. FRAX: Based on FRAX(r) 3.6 (U.S. White female), this patient's likelihoodof hip fracture is 4.7% and major osteoporotic fracture is 21.1% over thenext 10 years. The patient reported the following risks of fracture on a questionnaire: previous fracture as an adult and parental history of hip fracture. Reviewed By: Janis Sahu MD on 11/25/2024 12:54:03 Additional Information: -World Health Organization criteria classify adults based on lowestT-score at PA spine, hip or forearm: Normal (T-score >= -1.0), Osteopenia (T-score between -1 and -2.5), or Osteoporosis (T-score <= -2.5). At [facility], T-scores are compared to peak bone density of a young white gender matched reference population. - For premenopausal women and men under the age of 50, Z-scores(comparison to age, gender, and ethnicity matched reference population) are used:Above expected range for age (Z-score >= 2.0), Within expected range of age (Z-score 1.9 to -1.9), or Below expected range for age (Z-score <= -2.0). - The Bone Health and Osteoporosis Foundation recommends that treatment be considered in men aged more than 50 years and in postmenopausal women with ANY of the following: Prior hip or vertebral fractures; T-score of <= -2.5 at the PA spine or hip; or 10 year fracture probability by FRAX of >= 3%for the hip or >= 20% for major osteoporotic fracture. - The FRAX algorithm (https://www.keturah.ac.uk/FRAX/tool.aspx) is designed to predict 10-year fracture risk in treatment-naive adultsbetween the ages of 40 and 90. It is not intended to be used in those receiving pharmacologic osteoporosis treatment. - The TBS is derived from the texture of the DXA spine image and has been shown to be related to bone microarchitecture and fracture risk. This data provides information independent of BMD value. It adds to fracture risk assessment with a FRAX adjusted for TBS score. If your patient had a TBSand qualified for a FRAX score, the reported FRAX score has been adjusted for TBS. TBS Score Interpretation 1.350 and greater Normal bone microarchitecture 1.200 to 1.350 Partially degraded bone microarchitecture 1.200 and less Degraded bone microarchitecture - Including race/ethnicity in the generation of T- or Z-scores or in the FRAX calculation is complicated, and currently undergoing active review to ensure that we can give patients the best information on their risk of fracture. - Some prior studies may not be compatible with our comparison software. - Click on View Full Report to see subsequent pages with images andprior bone density results. IMPRESSION: Interpretation: Osteopenia. Pauline Paulino MD IM BD BONE DENSITY DEXA Final Result documented in this encounter Visit Diagnoses Diagnosis Osteoporosis with current pathological fracture, unspecified osteoporosis type, sequela- Primary Osteoporosis with current pathological fracture, unspecified osteoporosis type, sequela documented in this encounter Care Teams Insurance Salesman Relationship Specialty Start Date End Date aPuline Paulino MD [address] [place] [address] PCP - General Internal Medicine 03/08/18 Joni Deleon MD [address] [place] [address] [place] [address] Pulmonary Disease 07/18/23 Mikal Jones MD [address] [place] [address] [place] [address] Cardiology 07/23/23 Lulú Vizcaino MBBS [address] [place] [address] [address] [place] [address] [email or web address] Primary Oncologist Medical Oncology 11/29/23 documented as of this encounter Additional Source Comments The information contained in this document represents components of the legal health record. It is not the complete legal health record.[facility]
--- OUTSIDE RECORDS SUMMARY | 2025-04-14 15:46 | XMS_ITS | Encounter Summary ---
Author Organization [facility] Address [address] [place] [address] Phone Care Team Providers Care Cabana Attendant Name Role Phone Sherice John MD Primary Care Provider [phone] Deya Sotelo MD Unavailable Joni Deleon MD Unavailable Mikal Jones MD Unavailable Lulú Vizcaino Unavailable [phone] Encounter Details Date Type Department Care Team (Latest Contact Info) Description 11/22/2021 Transcribe Orders Virtual Department [address] [place] [address] Fide Tatum PA [address] [place] [address]. [place], [place] [id number] [email or web address] Left foot pain (Primary Dx) Social History Tobacco Use Types [...] PM EDT Office Visit [facility] 22 [place] [address] Rogelio Torrez DO 22 [place] [address] [email or web address] 12/10/2025 10:40 AM EDT Appointment [facility] 30 [place] [address] Lulú Vizcaino MBBS 30 [place] [address] [email or web address] 12/10/2025 11:40 AM EDT Office Visit [facility] 30 [place] [address] Lulú Vizcaino MBBS 30 [place] [address] [email or web address] 03/03/2026 8:30 AM EDT Telemedicine [facility]ia Service 32 [facility], 5th Floor, [address] [place] [address] Angel Domínguez MD 55 [facility] [address] [place] [address] [email or web address] documented as of this encounter Results * XR FOOT 3 OR MORE VIEWS (LEFT) (11/22/2021 3:14 PM EDT) Anatomical Region Laterality Modality Foot Left Computed Radiogr aphy 11/23/2021 10:3 3 AM EDT Impressions 11/23/2021 10:37 AM EDT Mild hallux valgus. Very mild degenerative changes. Small-moderate size plantar calcaneal spur. Narrative 11/23/2021 10:37 AM EDT HISTORY: Lateral pain after walking. No known trauma. COMPARISON: None. VIEWS: 3 views. FINDINGS: Mild hallux valgus. No fractures, subluxations or dislocations. Mild marginal spurring at the first MTP joint and minimally at other joints in the foot and toes. No evidence of erosions. Small-moderate size plantar calcaneal spur. No suspicious soft tissue calcifications. Procedure Note Steve Michael MD - 11/23/2021 HISTORY: Lateral pain after walking. No known trauma. COMPARISON: None. VIEWS: 3 views. FINDINGS: Mild hallux valgus. No fractures, subluxations or dislocations. Mild marginal spurring at the first MTP joint and minimally at otherjoints in the foot and toes. No evidence of erosions. Small-moderate size plantar calcaneal spur. No suspicious soft tissue calcifications. IMPRESSION: Mild hallux valgus. Very mild degenerative changes. Small-moderate sizeplantar calcaneal spur. Fide MANZO IMG XR LOWER EXTREMITY Final Result documented in this encounter Visit Diagnoses Diagnosis Left foot pain- Primary Pain in soft tissues of limb Left foot pain Pain in soft tissues of limb documented in this encounter Additional Health Concerns Infection Onset Date Last Indicated Resolved Time CoV-Risk 07/04/2022 07/04/2022 07/15/2022 4:44 AM EST CoV-Risk 10/12/2022 10/12/2022 10/23/2022 1:22 AM EST CoV-Risk 10/25/2022 10/25/2022 11/05/2022 1:22 AM EDT CoV-Risk 11/24/2022 11/24/2022 12/05/2022 1:22 AM EDT documented as of this encounter Care Teams Cabana Attendant Relationship Specialty Start Date End Date Sherice John MD [address] [place] [address] [email or web address] PCP - General Internal Medicine 03/08/18 Deya Sotelo MD [address] [address] [email or web address] Primary Oncologist Hematology and Oncology 11/27/2211/18 Joni Deleon MD [address] [place] [address] [place] [address] Pulmonary Disease 07/18/23 Mikal Jones MD [address] [facility] [address] [place] [address] Cardiology 07/23/23 Lulú Vizcaino MBBS [address] [facility] [address] [place] [address] [email or web address] Primary Oncologist Medical Oncology 11/29/23 documented as of this encounter Additional Source Comments The information contained in this document represents components of the legal health record. It is not the complete legal health record.[facility]
--- OUTSIDE RECORDS SUMMARY | 2025-04-14 15:46 | XMS_ITS | Encounter Summary ---
Author Organization [facility] Address [address] [place] [address] Phone Care Team Providers Care Comb Winder Name Role Phone Sherice John MD Primary Care Provider Deya Sotelo MD Unavailable Joni Deleon MD Unavailable Mikal Jones MD Unavailable [phone] Lulú Vizcaino Unavailable [phone] Encounter Details Date Type Department Care Team (Late st Contact Info) Description 10/25/2022 Procedure Pass [facility], Ct Scan - [address] [address] Social History Tobacco Use Types Packs/Day Years [...] Date of Assessment Author No Risk Indicated 10/25/2022 2:41 PM Rhea Ordaz, NAREN * [place] Suicide Severity Rating Scale (Screener/Recent Self-Report) Question Answer Date of Assessment Author 1. Wish to be (Past 1 Month) No 023 2:41 PM Rhea Ordaz, NAREN 2. Non-Specific Active Suici wendie Thoughts (Past 1 Month) No 10/25/2022 2:41 PM Rhea Ordaz, RN 6. Suicidal Behavior (Lifetime) No 2:41 PM Rhea Ordaz RN documented as of this encounter Plan of Treatment Upcoming Encounters Date Type Department Care Team (Late st Contact Info) Description 05/21/2025 1:00 PM EDT Office Visit [facility] 22 [place] [address] Rogelio Torrez DO 22 [place] [address] [email or web address] 12/10/2025 10:40 AM EDT Appointment [facility] 30 [place] [address] Lulú Vizcaino MBBS [address] [place] [address] [email or web address] 12/10/2025 11:40 AM EDT Office Visit [facility] [place] 30 [place] [address] Lulú Vizcaino MBBS 30 [place] [address] [email or web address] 03/03/2026 8:30 AM EDT Telemedicine [facility] Cardiac Arrhythmia Service 32 [facility], 5th Floor, [address] [place] [address] Angel Domínguez MD 55 [facility] [address] [place] [address] [email or web address] documented as of this encounter Visit Diagnoses Not on filedocumented in this encounter Additional Health Concerns Infection Onset Date Last Indicated Resolved Time CoV-Risk 10/25/2022 10/25/2022 11/05/2022 1:22 AM EDT CoV-Risk 11/24/2022 11/24/2022 12/05/2022 1:22 AM EDT documented as of this encounter Care Teams Comb Winder Relationship Specialty Start Date End Date Sherice John MD [address] [place] [address] [email or web address] PCP - General Internal Medicine 03/08/18 Deya Sotelo MD [address] [address] [email or web address] Primary Oncologist Hematology and Oncology 11/27/2211/18 Joni Deleon MD [address] [place] [address] [place] [address] Pulmonary Disease 07/18/23 Mikal Jones MD [address] [place] [address] [place] [address] Cardiology 07/23/23 Lulú Vizcaino MBBS 2 [facility] [address] [place] [address] [email or web address] Primary Oncologist Medical Oncology 11/29/23 documented as of this encounter Additional Source Comments The information contained in this document represents components of the legal health record. It is not the complete legal health record.[facility]
--- OUTSIDE RECORDS SUMMARY | 2025-04-14 15:46 | XMS_ITS | Encounter Summary ---
Author Organization [facility] Address [address] [place] [address] Phone Care Team Providers Care Social Human Services Assistants Name Role Phone Sherice John MD Primary Care Provider [phone] Deya Sotelo MD Unavailable Joni Deleon MD Unavailable Mikal Jones MD Unavailable [phone] Lulú Vizcaino [facility] Unavailable Encounter Details Date Type Department Care Team (Late st Contact Info) Description 03/08/2018 Ancillary Orders Virtual Department [address] [place] [address] Juana Woody MD [address] [place] [address], [address] [address] [email or web address] Calculus of ureter Social History Tobacco Use Types Packs/Day Years [...] PM EDT Office Visit [facility] 22 [place] [address] Rogelio Torrez DO 22 [place] [address] [email or web address] 12/10/2025 10:40 AM EDT Appointment [facility] 30 [place] [address] Lulú Vizcaino MBBS 30 [place] [address] [email or web address] 12/10/2025 11:40 AM EDT Office Visit [facility] 30 [place] [address] Lulú Vizcaino MBBS 30 [place] [address] [email or web address] 03/03/2026 8:30 AM EDT Telemedicine [facility] Cardiac Arrhythmia Service 32 [facility], 5th Floor, [address] [place] [address] Angel Domínguez MD 55 [facility] [address] [place] [address] [email or web address] documented as of this encounter Visit Diagnoses Diagnosis Calculus of ureter documented in this encounter Additional Health Concerns [...] documented as of this encounter Care Teams Social Human Services Assistants Relationship Specialty Start Date End Date Sherice John MD [address] [place] [address] PCP - General Internal Medicine 03/08/18 Deya Sotelo MD [address] [place] [address] [email or web address] Primary Oncologist Hematology and Oncology 11/27/2211/18 Joni Deleon MD [address] [place] [address] [place] [address] Pulmonary Disease 07/18/23 Mikal Jones MD [address] [place] [address] [address] [place] [address] Cardiology 07/23/23 Lulú Vizcaino MBBS 2 [facility] [address] [place] [address] [email or web address] Primary Oncologist Medical Oncology 11/29/23 documented as of this encounter Additional Source Comments The information contained in this document represents components of the legal health record. It is not the complete legal health record.[facility]
--- OUTSIDE RECORDS SUMMARY | 2025-04-14 15:46 | XMS_ITS | Encounter Summary ---
Author Organization [facility] Address [address] [place] [address] Phone Care Team Providers Care Air Tester Name Role Phone Sherice John MD Primary Care Provider Deya Sotelo MD Unavailable Joni Deleon MD Unavailable Mikal Jones MD Unavailable [phone] Lulú Vizcaino Unavailable [phone] Encounter Details Date Type Department Care Team (Late st Contact Info) Description 05/10/2022 Procedure Pass [facility], Ct Scan - [address] [address] Social History Tobacco Use Types Packs/Day Years [...] Date of Assessment Author No Risk Indicated 05/10/2022 11:35 AM EDT Elaine Wray RN * [place] Suicide Severity Rating Scale (Screener/Recent Self-Report) Question Answer Date of Assessment Author 1. Wish to be (Past 1 Month) No 022 11:35 AM EDT Elaine Wray RN 2. Non-Specific Active Suici wendie Thoughts (Past 1 Month) No 05/10/2022 11:35 AM EDT Elaine Wray RN 6. Suicidal Behavior (Lifetime) No 11:35 AM EDT Elaine Wray RN documented as of this encounter Plan of Treatment Upcoming Encounters Date Type Department Care Team (Late st Contact Info) Description 05/21/2025 1:00 PM EDT Office Visit [facility] 22 [place] [address] Rogelio Torrez DO 22 [place] [address] [email or web address] 12/10/2025 10:40 AM EDT Appointment [facility] 30 [place] [address] Lulú Vizcaino MBBS [address] [place] [address] [email or web address] 12/10/2025 11:40 AM EDT Office Visit [facility] [place] 30 [place] [address] Lulú Vizcaino MBBS [address] [place] [address] [email or web address] 03/03/2026 8:30 AM EDT Telemedicine [facility] Cardiac Arrhythmia Service 32 [facility], 5th Floor, [address] [place] [address] Angel Domínguez MD 55 [facility] [address] [place] [address] [email or web address] documented as of this encounter Visit Diagnoses Not on filedocumented in this encounter Additional Health Concerns Infection Onset Date Last Indicated Resolved Time CoV-Risk 07/04/2022 07/04/2022 07/15/2022 4:44 AM EST CoV-Risk 10/12/2022 10/12/2022 10/23/2022 1:22 AM EST CoV-Risk 10/25/2022 10/25/2022 11/05/2022 1:22 AM EDT CoV-Risk 11/24/2022 11/24/2022 12/05/2022 1:22 AM EDT documented as of this encounter Care Teams Air Tester Relationship Specialty Start Date End Date Sherice John MD [address] [place] [address] [email or web address] PCP - General Internal Medicine 03/08/18 Deya Sotelo MD [address] [place] [address] [email or web address] Primary Oncologist Hematology and Oncology 11/27/2211/18 Joni Deleon MD [address] [place] [address] [place] [address] Pulmonary Disease 07/18/23 Mikal Jones MD [address] [place] [address] [address] [place] [address] Cardiology 07/23/23 Lulú Vizcaino MBBS 2 [facility] [address] [place] [address] [email or web address] Primary Oncologist Medical Oncology 11/29/23 documented as of this encounter Additional Source Comments The information contained in this document represents components of the legal health record. It is not the complete legal health record.[facility]
--- OUTSIDE RECORDS SUMMARY | 2025-04-14 15:46 | XMS_ITS | Encounter Summary ---
Author Organization [employer] Address 75 [facility] 7t [place] [address] Care Team Providers Care Heat Treat Operator Name Role Phone Sherice John MD Primary Care Provider [phone] Reason for Visit * Reason Onset Date Comments Rx needs clairification 04/22/2024 Gabapent in Rx needs clarification Encounter Details Date Type Department Care Team (Late st Contact Info) Description 04/22/2024 Refill Gisela [facility] MEDICAL [address] [place] [address] Sherice John MD 73 [place] [address] Primary insomnia Social History Tobacco Use Types [...] Description 04/30/2025 10:30 AM EDT Office Visit [facility] OPTOMETRY 73 [place] [address] Parris Torres, YONI 73 [place] [address] 05/01/2025 10:00 AM EDT Office Visit [facility] MEDICAL [address] [place] [address] Sherice John MD 73 [place] [address] documented as of this encounter Visit Diagnoses Diagnosis Primary insomnia Persistent disorder of initiating or maintaining sleep documented in this encounter Care Teams Heat Treat Operator Relationship Specialty Start Date End Date Sherice John MD 73 [place] [address] PCP - General Internal Medicine 08/08/22 documented as of this encounter
--- OUTSIDE RECORDS SUMMARY | 2025-04-14 15:46 | XMS_ITS | Encounter Summary ---
Author Organization [facility] Address [address] [place] [address] Phone Care Team Providers Care Gas Meter Checker Name Role Phone Sherice John MD Primary Care Provider [phone] Deya Sotelo MD Unavailable Joni Deleon MD Unavailable Mikal Jones MD Unavailable [phone] Lulú Vizcaino Unavailable [phone] Encounter Details Date Type Department Care Team (Late st Contact Info) Description 12/07/2021 Procedure Pass [facility], [address] [address] Social History Tobacco Use Types Packs/Day Years [...] PM EDT Office Visit [facility] 22 [place] [address] Rogelio Torrez DO 22 [place] [address] [email or web address] 12/10/2025 10:40 AM EDT Appointment [facility] 30 [place] [address] Lulú Vizcaino MBBS 30 [place] [address] [email or web address] 12/10/2025 11:40 AM EDT Office Visit [facility] [place] 30 [place] [address] Lulú Vizcaino MBBS [address] [place] [address] [email or web address] 03/03/2026 8:30 AM EDT Telemedicine [facility] Cardiac Arrhythmia Service 32 [facility], 5th Floor, [address] [place] [address] Angel Domínguez MD [facility] [place] [address] [email or web address] documented as of this encounter Visit Diagnoses Not on filedocumented in this encounter Additional Health Concerns Infection Onset Date Last Indicated Resolved Time CoV-Risk 07/04/2022 07/04/2022 07/15/2022 4:44 AM EST CoV-Risk 10/12/2022 10/12/2022 10/23/2022 1:22 AM EST CoV-Risk 10/25/2022 10/25/2022 11/05/2022 1:22 AM EDT CoV-Risk 11/24/2022 11/24/2022 12/05/2022 1:22 AM EDT documented as of this encounter Care Teams Gas Meter Checker Relationship Specialty Start Date End Date Sherice John MD 73 [place] [address] [email or web address] PCP - General Internal Medicine 03/08/18 Deya Sotelo MD [address] [address] [email or web address] Primary Oncologist Hematology and Oncology 11/27/2211/18 Joni Deleon MD [address] [place] [address] [place] [address] Pulmonary Disease 07/18/23 Mikal Jones MD [address] [place] [address] [address] [place] [address] Cardiology 07/23/23 Lulú Vizcaino, JORGE [address] [place] [address] Center [address] [place] [address] [email or web address] Primary Oncologist Medical Oncology 11/29/23 documented as of this encounter Additional Source Comments The information contained in this document represents components of the legal health record. It is not the complete legal health record.[facility]
--- OUTSIDE RECORDS SUMMARY | 2025-04-14 15:46 | XMS_ITS | Encounter Summary ---
Author Organization [employer] Address 75 [facility] 7t [place] [address] Care Team Providers Care Flame Hardener Name Role Phone Sherice John MD Primary Care Provider [phone] Encounter Details Date Type Department Care Team (Late st Contact Info) Description 05/14/2024 Orders Only [facility] [address] [place] [address] Sherice John MD 73 [place] [address] Social History Tobacco Use Types Packs/Day Years [...] 10:30 AM EDT Office Visit [facility] OPTOMETRY 73 [place] [address] Parris Torres, OD 73 [place] [address] 05/01/2025 10:00 AM EDT Office Visit [facility] MEDICAL 73 [place] [address] Sherice John MD 73 [place] [address] documented as of this encounter Procedures Procedure Name Priority Date/Time Associated Diagnosis Comments PATHOLOGY REPORT (HISTOPATHOLOGY) Routine 05/06/2024 11:01 AM EDT PATHOLOGY REPORT (HISTOPATHOLOGY) Routine 05/05/2024 11:01 AM EDT documented in this encounter Results * Pathology Report (Histopathology) (05/06/2024 11:01 AM EDT) Tissue us Sherice John MD LAB PATHOLOGY ORDERABLES Final R esult * Pathology Report (Histopathology) (05/05/2024 11:01 AM EDT) Tissue us Sherice John MD LAB PATHOLOGY ORDERABLES Final R esult documented in this encounter Visit Diagnoses Not on filedocumented in this encounter Care Teams Flame Hardener Relationship Specialty Start Date End Date Sherice John MD 73 [place] [address] PCP - General Internal Medicine 08/08/22 documented as of this encounter
--- OUTSIDE RECORDS SUMMARY | 2025-04-14 15:46 | XMS_ITS | Encounter Summary ---
Author Organization [facility] Address [address] [place] [phone] Phone Care Team Providers Care Retail Assistant Store Manager Name Role Phone Sherice John MD Primary Care Provider Deya Sotelo MD Unavailable Joni Deleon MD Unavailable [phone] Mikal Jones MD Unavailable [phone] [address] [facility] Unavailable [phone] Reason for Referral * MRI/CAT Scan - Closed Specialty Diagnoses / Procedures Referred By Contac t Referred To Contact Radiology Diagnoses Radicular pain in left arm Procedures MRI Cervical Spine Sherice John MD Phone: tel: fax: mailto:[email or web address] Referral ID Status Reason Start Date Expiration Date Visits Re quested Visits Authorized [id number] Closed 11/29/2018 11/29/2019 1 1 * MRI/CAT Scan - Closed Specialty Diagnoses / Procedures Referred By Contac t Referred To Contact Radiology Diagnoses Radicular pain in left arm Procedures MRI Thoracic Spine Sherice John MD Phone: tel: fax: mailto:[email or web address] Referral ID Status Reason Start Date Expiration Date Visits Re quested Visits Authorized [id number] Closed 11/29/2018 11/29/2019 1 1 Encounter Details Date Type Department Care Team (Latest Contact Info) Description 11/29/2018 Transcribe Orders Virtual Department [address] [place] [address] Sherice John MD [address] [place] [phone] [email or web address] Radicular pain in left arm (Primary Dx) Social History Tobacco Use Types [...] PM EDT Office Visit [facility] [address] [place] [address] Rogelio Torrez DO [address] [place] [address] 12/10/2025 10:40 AM EDT Appointment [facility] [address] [place] [address] Lulú Vizcaino [employer] [address] [place] [address] [email or web address] 12/10/2025 11:40 AM EDT Office Visit [facility] [address] [place] [address] Lulú Vizcaino [employer] [address] [place] [address] [email or web address] 03/03/2026 8:30 AM EDT Telemedicine [facility] Cardiac Arrhythmia Service [address] [facility], 5th Floor, [address] [place] [address] Angel Domínguez MD [address] [facility] [address] [place] [address] [email or web address] documented as of this encounter Results * MRI CERVICAL SPINE (BONE) WITHOUT CONTRAST (12/12/2018 8:15 PM EDT) Anatomical Region Laterality Modality C-spine Magnetic Resonan ce 12/12/2018 10:0 2 PM EDT Impressions 12/13/2018 9:39 AM EDT 1. Changes of degenerative disc disease most pronounced at C4-C5, C5-C6 and C6-C7. At C4-C5 there is moderate canal stenosis and severe bilateral neural foraminal stenosis. At C5-C6 there is severe canal stenosis and severe bilateral neural foraminal stenosis. At C6-C7 there is moderate to severe canal stenosis and moderate bilateral neural foraminal stenosis. The cervical spinal cord is flattened at these levels, without evidence for cord edema or myelomalacia. POS [id number] Edited by: Brandi Mosley on 12/13/2018 9:32 AM Narrative 12/13/2018 9:39 AM EDT EXAM: MRI CERVICAL SPINE (BONE) WITHOUT CONTRAST HISTORY: Pain in chest, shoulders, back and jaw for a few months.? Pinched nerve. TECHNIQUE: Exam performed on a 1.5 [employer] high-field MRI unit. Sagittal T1, T2 and STIR, axial T2* gradient echo and 3-D T2 sequences obtained. COMPARISON: None. FINDINGS: Bone marrow signal is within normal limits. No bone marrow edema or fracture. There is straightening of the normal cervical curvature. Normal alignment of the cervical vertebrae. There is moderate degenerative loss of disc height at C4-C5, C5-C6 and C6-C7 with anterior and posterior marginal endplate spurring. There are bilateral facet hypertrophic osteophytic changes at all levels. The cervical spinal cord is normal in signal. No evidence for intramedullary mass or cord signal edema. The cervical spinal cord is flattened at C4-C5, C5-C6 and C6-C7 secondary to degenerative disc pathology. Evaluation of the individual levels: C2-C3: Normal. No canal or neural foraminal stenosis. C3-C4: Minimal disc bulging with posterior ridgelike spurring resulting in mild canal stenosis. No significant neural foraminal stenosis. C4-C5: Diffuse disc bulging, posterior ridgelike spurring and uncovertebral spurring. Together with facet degenerative spurring there is moderate canal stenosis. There is indentation upon the anterior thecal sac and there is flattening of the cervical spinal cord. Minimal preservation of CSF signal surrounding the cord. Severe bilateral neural foraminal stenosis. C5-C6: Diffuse disc bulging/posterior ridgelike spurring, uncovertebral spurring bilaterally and bilateral facet degenerative spurring. There is severe canal stenosis, almost complete loss of CSF surrounding the spinal cord which is flattened. There is severe bilateral neural foraminal stenosis. C6-C7: Diffuse disc bulging/posterior ridgelike spurring and uncovertebral spurring. Together with facet hypertrophic changes there is moderate to severe canal stenosis, moderate bilateral neural foraminal stenosis. C7-T1: Mild diffuse disc bulging. No significant canal or neural foraminal stenosis. Procedure Note Christin Hagen MD - 12/13/2018 EXAM: MRI CERVICAL SPINE (BONE) WITHOUT CONTRAST HISTORY: Pain in chest, shoulders, back and jaw for a few months.? Pinchednerve. TECHNIQUE: Exam performed on a 1.5 [employer] high-field MRI unit. SagittalT1, T2 and STIR, axial T2* gradient echo and 3-D T2 sequences obtained. COMPARISON: None. FINDINGS: Bone marrow signal is within normal limits. No bone marrow edema orfracture. There is straightening of the normal cervical curvature. Normalalignment of the cervical vertebrae. There is moderate degenerative lossof disc height at C4-C5, C5-C6 and C6-C7 with anterior and posteriormarginal endplate spurring. There are bilateral facet hypertrophicosteophytic changes at all levels. The cervical spinal cord is normal insignal. No evidence for intramedullary mass or cord signal edema. Thecervical spinal cord is flattened at C4-C5, C5-C6 and C6-C7 secondary todegenerative disc pathology. Evaluation of the individual levels: C2-C3: Normal. No canal or neural foraminal stenosis. C3-C4: Minimal disc bulging with posterior ridgelike spurring resulting inmild canal stenosis. No significant neural foraminal stenosis. C4-C5: Diffuse disc bulging, posterior ridgelike spurring anduncovertebral spurring. Together with facet degenerative spurring there ismoderate canal stenosis. There is indentation upon the anterior thecal sacand there is flattening of the cervical spinal cord. Minimal preservationof CSF signal surrounding the cord. Severe bilateral neural foraminalstenosis. C5-C6: Diffuse disc bulging/posterior ridgelike spurring, uncovertebralspurring bilaterally and bilateral facet degenerative spurring. There issevere canal stenosis, almost complete loss of CSF surrounding the spinalcord which is flattened. There is severe bilateral neural foraminalstenosis. C6-C7: Diffuse disc bulging/posterior ridgelike spurring and uncovertebralspurring. Together with facet hypertrophic changes there is moderate tosevere canal stenosis, moderate bilateral neural foraminal stenosis. C7-T1: Mild diffuse disc bulging. No significant canal or neural foraminalstenosis. IMPRESSION: 1. Changes of degenerative disc disease most pronounced at C4-C5, C5-C6and C6- C7. At C4-C5 there is moderate canal stenosis and severe bilateralneural foraminal stenosis. At C5-C6 there is severe canal stenosis andsevere bilateral neural foraminal stenosis. At C6-C7 there is moderate tosevere canal stenosis and moderate bilateral neural foraminal stenosis.The cervical spinal cord is flattened at these levels, without evidencefor cord edema or myelomalacia. POS [id number] Edited by: Brandi Mosley on 12/13/2018 9:32 AM us Sherice John MD IMG MR XSPECIALTY Final Result * MRI THORACIC SPINE (BONE) WITHOUT CONTRAST (12/12/2018 8:15 PM EDT) Anatomical Region Laterality Modality T-spine Magnetic Resonan ce 12/12/2018 10:1 7 PM EDT Impressions 12/13/2018 10:10 AM EDT 1. Chronic L1 superior endplate Schmorl's node with minimal retropulsion of the posterior superior corner of L1 and minimal disc bulging at T12-L1 resulting in mild canal stenosis. 2. No levels of any significant neural foraminal stenosis in the thoracic spine. 3. Tiny disc protrusions at T5-T6 and T7-T8 without any significant canal narrowing. POS - [id number] Edited by: Brandi Mosley on 12/13/2018 9:33 AM Narrative 12/13/2018 10:10 AM EDT EXAM: MRI THORACIC SPINE (BONE) WITHOUT CONTRAST HISTORY: Pain in chest, shoulders, back and sharp.? Pinched nerve versus vascular. No recent trauma. COMPARISON: None. TECHNIQUE: Exam performed on a 1.5 [employer] high-field MRI scanner. Sagittal T1, T2 and STIR sequences were obtained. FINDINGS: The cervical spinal cord is normal in position, morphology and signal. The conus terminates at the superior L2 level. Thoracic vertebrae are normal in height and alignment. There is no bone marrow edema. No acute fracture. There is a L1 superior endplate Schmorl's node with mild loss of vertebral body height and minimal retropulsion of the posterior superior endplate with mild indentation upon the anterior thecal sac. There is no bone marrow edema to suggest that this would be acute. There are a few levels of anterior disc bulging. At T5-T6 there is a small left paracentral disc protrusion which focally indents upon the anterolateral thecal sac, without significant narrowing of the canal. At T7-T8 there is a tiny central disc protrusion, without any significant canal stenosis. At T12-L1 there is mild canal stenosis secondary to the retropulsed posterior superior L1 endplate and adjacent mild diffuse disc bulging at T12-L1. No levels of any significant neural foraminal stenosis in the thoracic spine. There is no prevertebral or paravertebral fluid or mass. Procedure Note Christin Hagen MD - 12/13/2018 EXAM: MRI THORACIC SPINE (BONE) WITHOUT CONTRAST HISTORY: Pain in chest, shoulders, back and sharp.? Pinched nerve versusvascular. No recent trauma. COMPARISON: None. TECHNIQUE: Exam performed on a 1.5 [employer] high-field MRI scanner. SagittalT1, T2 and STIR sequences were obtained. FINDINGS: The cervical spinal cord is normal in position, morphology and signal. Theconus terminates at the superior L2 level. Thoracic vertebrae are normalin height and alignment. There is no bone marrow edema. No acute fracture.There is a L1 superior endplate Schmorl's node with mild loss of vertebralbody height and minimal retropulsion of the posterior superior endplatewith mild indentation upon the anterior thecal sac. There is no bonemarrow edema to suggest that this would be acute. There are a few levels of anterior disc bulging. At T5-T6 there is a smallleft paracentral disc protrusion which focally indents upon theanterolateral thecal sac, without significant narrowing of the canal. AtT7-T8 there is a tiny central disc protrusion, without any significantcanal stenosis. At T12-L1 there is mild canal stenosis secondary to theretropulsed posterior superior L1 endplate and adjacent mild diffuse discbulging at T12-L1. No levels of any significant neural foraminal stenosis in the thoracicspine. There is no prevertebral or paravertebral fluid or mass. IMPRESSION: 1. Chronic L1 superior endplate Schmorl's node with minimal retropulsionof the posterior superior corner of L1 and minimal disc bulging at [id number] in mild canal stenosis. 2. No levels of any significant neural foraminal stenosis in the thoracicspine. 3. Tiny disc protrusions at T5-T6 and T7-T8 without any significant canalnarrowing. POS - [id number] Edited by: Brandi Mosley on 12/13/2018 9:33 AM Sherice John MD IMG MR XSPECIALTY Final Result documented in this encounter Visit Diagnoses Diagnosis Radicular pain in left arm- Primary Unspecified neuralgia, neuritis, and radiculitis Radicular pain in left arm Unspecified neuralgia, neuritis, and radiculitis documented in this encounter Additional Health Concerns [...] as of this encounter Care Teams Retail Assistant Store Manager Relationship Specialty Start Date End Date Sherice John MD [address] [place] [address] PCP - General Internal Medicine 03/08/18 Deya Sotelo MD [facility] [address] [address] [email or web address] Primary Oncologist Hematology and Oncology 11/27/2211/18 Joni Deleon MD [address] [place] [address] [place] [address] Pulmonary Disease 07/18/23 Mikal Jones MD [address] [place] [address] [place] [id number] Cardiology 07/23/23 Lulú Vizcaino [employer] [address] [place] [address] [address] [place] [address] [email or web address] Primary Oncologist Medical Oncology 11/29/23 documented as of this encounter Additional Source Comments The information contained in this document represents components of the legal health record. It is not the complete legal health record.[facility]
--- OUTSIDE RECORDS SUMMARY | 2025-04-14 15:46 | XMS_ITS | Clinical Summary ---
Author Organization [employer] Address [address] [facility] 7t [place] [address] Care Team Providers Care Office Machine Servicer Apprentice Name Role Phone Sherice John MD Primary Care Provider [phone] Allergies Active Allergy Reactions Criticality Noted Date Comments Hydromorphone 07/11/2022 Patient has confusion on this medication. Sulfa Antibiotics Rash Low 07/11/2022 Sulfamethoxazole-Trimethopri m Rash Low 02/07/2019 Other reaction(s): Flu-like symptoms Medications SUMAtriptan (Imitrex) 100 MG tablet 1 tablet. 05/12/20 19 Active calcium carbonate (Os-Devin) 1250 (500 Ca) MG tablet 1 tablet in the morning. Active Multiple Vitamins-Iron (MULTIPLE VITAMIN/IRON PO) Take 1 tablet by mouth Once per day. Active metroNIDAZOLE (Metrocream) 0.75 % cream 01/20/20 22 Active levalbuterol (Xopenex) 0.63 MG/3ML [...] 23 Active lansoprazole (Prevacid) [address] capsuleBrysonicaangelic ns:Gastroesophag eal reflux disease, unspecified whether esophagitis present Take [...] Active azelaic acid (Finacea) 15 % gel 10/25/19 24 Active ALPRAZolam (Xanax) 0.5 MG tablet 02/20/20 24 Active mexiletine (Mexitil) 150 MG capsule Take 150 mg by mouth in the morning and 150 mg in the evening. Active sertraline (Zoloft) 50 MG tablet 01/31/20 24 Active tiotropium (Spiriva Respimat) 2.5 MCG/ACT inhalerIndicatio ns:Moderate persistent asthma without complication INHALE 2 PUFFS IN THE MORNING 4 each 04/01/20 24 025 Active gabapentin (Neurontin) 400 MG capsuleIndicatio ns:Primary insomnia Take 3 capsules (1,200 mg) by mouth at bedtime. 270 capsule 3 04/24/20 24 025 Active benzonatate (Tessalon) 200 MG capsule 04/24/20 24 Active traZODone (Desyrel) 50 MG tablet Take 50 mg by mouth if needed at bedtime for sleep. 05/22/20 24 Active Restasis 0.05 % ophthalmic emulsionIndicati ons:Keratitis sicca, bilateral ADMINISTER 1 DROP INTO BOTH EYES 2 TIMES DAILY. 180 mL 3 08/07/20 24 Active empagliflozin (Jardiance) 10 MG Take 10 mg by mouth in the morning. 09/05/19 25 Active Eliquis 5 MG tablet TAKE 1 TABLET BY MOUTH TWICE A DAY 180 tablet 3 12/03/19 25 Active denosumab (Prolia) 60 MG/ML solution prefilled syringeIndicatio ns:Age-related osteoporosis with current pathological fracture with delayed healing, subsequent encounter Inject 1 mL (60 mg) under the skin 1 (one) time for 1 dose. 1 mL 12/19/19 25 Active fluticasone (Flonase) 50 MCG/ACT nasal spray Administer 2 sprays into each nostril Once per day. 02/03/20 21 Active cyclobenzaprine (Flexeril) 10 MG tabletIndication s:Acute bilateral low back pain without sciatica TAKE 1 TABLET (10 MG) BY MOUTH NEEDED IN THE MORNING , AT NOON, AND AT BEDTIME FOR MUSCLE SPASMS 30 tablet 01/17/20 25 Active Suzetrigine (Journavx) 50 MG tablet TAKE 1 TABLET BY MOUTH TWICE A DAY FOR 28 DAYS Active rosuvastatin (Crestor) 20 MG tabletIndication s:High cholesterol TAKE 1 TABLET BY MOUTH EVERY DAY 90 tablet 3 03/06/20 25 Active lisinopril 20 MG tabletIndication s:Essential hypertension Take 1 tablet (20 mg) by mouth Once per day. 90 tablet 3 03/12/20 25 026 Active doxycycline (Vibramycin) 100 MG capsule Take 2 capsules (200 mg) by mouth 1 (one) time for 1 dose. Take with at least 8 ounces (large glass) of water, do not lie down for 30 minutes after 2 capsule 03/16/20 25 025 Active Problems Problem Noted Date Diagnosed Date [...] will f/up with both her pulm and drum reel cutter , continue daily weights and report if greater than 2 lb wt gain day to day or 5 lbs in one week. Self monitor closely for any new open wounds or bleeding as she is taking Eliquis 5 mg PO BID d/t hx PE and pulm HTN, ?cardiomyopathy, ? CHF. Recommended schedule her pulm and drum reel cutter followup visits soon and agrees to do [...] EDT): Encouraged to keep current with her concrete boom pump operator and drum reel cutter given her multple complex pulm and cardio health diagnoses and history. Savannah's bp somewhat elevated and will self monitor bp/pulse and 02 sat daily and make/keep PCP, pulm and drum reel cutter followup visits and agrees to consult with reg bilingual school psychologist for dietary advice to help with her [...] on the results of her echocardiogram from [facility] and discussed with her if there are actionable findings. I did encourage her to follow-up with her new concrete boom pump operator to determine if there are further investigations or treatment warranted for pulmonary hypertension. 11/22/18 CAIT: Mild Assessment & Plan (06/25/2024 8:30 PM EST): Followed by cardiology and also pulm HTN specialist in [place] Dr. Tangela Deleon. See HPI, encouraged to f/up both with her drum reel cutter who is prescribing her torsemide and with [...] Encounters Date Type Department Care Team Description 04/08/[address] [address] Sherice John MD ED visit 04/08/2025 Orders Only [address] [address] ProviderKiersten MD 03/16/[address] [address] Sherice John MD tick bite on left shoulder 03/11/[address] [address] Sherice John MD Essential hypertension 03/06/[address] [address] Sherice John MD High cholesterol 02/24/2025 Orders Only [facility] [address] [place] [address] Sherice John MD 02/17/2025 11:00 AM EDT Office Visit [address] [place] [address] Helga Ramirez CNP Encounter for examination following treatment at hospital (Primary Dx); Osteopenia of lumbar spine 02/17/[address] [address] Helga Ramirez CNP Advice Only 02/16/2025 Travel 02/13/[address] [address] Sherice John MD fax from [facility] re: meds 02/12/[address] [address] Sherice John MD request RX for pain 02/11/[address] [address] Sherice John MD Hospital Follow-up; Care Coordination; Chest Pain; Muscle Pain 02/10/[address] [address] Sherice John MD hospital discharge, obtain hospital records 01/29/2025 10:00 AM EDT Office Visit [address] [address] Sherice John MD Abdominal distension (Primary Dx); Immunization due; Osteoporosis, unspecified osteoporosis type, unspecified pathological fracture presence 01/29/2025 Travel 01/28/2025 Travel 01/19/[address] [address] Sherice John MD Care Coordination 01/19/[address] [address] Sherice John MD ongoing back pain, discuss RX 01/16/[address] [address] Sherice John MD Prior Authorization (cyclobenzaprine) 01/16/2025 Refill [facility] [address] [place] [address] Sherice John MD Acute bilateral low back pain without sciatica from Last 3 Months Immunizations Immunization Administration Dates Next Due Influenza High-dose Quadriva lent Preservative Free 05/18/2023,06/27/2022 Influenza, High Dose Seasona l, Preservative Free 05/11/2021,06/07/2020 Influenza, IIV3, injectable 07/14/2019,1 08/21/2017,08/24/2017,06/05 Influenza, seasonal, injecta ble, preservative free 06/21/2018,08/24/2017 Influenza, trivalent, adjuvanted 05/15/2024,06/21 Moderna Covid-19 Vaccine 12+ 12/04/2023, 06/10/2021,11/12/2020,10/15 Pfizer Covid-19 Vaccine 12+ 12/02/2021,1 ,11/05/2020,10/15 Pfizer Covid-19 Vaccine 12+ eddy-sucrose (Huertas Cap) 12/02/2021 Pneumococcal Conjugate PCV 13 07/14/2019 Pneumococcal Polysaccharide PPSV23 08/24/2017 RSV Adjuvant 05/21/2024 Tdap 01/29/2025,05/10/2012 Family History Medical History Relation Name Comments [...] degree you have received? Master's degree (e.g., MA, MS, Luis Eduardo, MEd, DIRECT RESPONSE CONSULTANT, MARLIN) 02/17/2025 Comments Unknown Sex and Gender Information Value Date Recorded Sex Assigned at Female 08/01/2022 12:40 PM EST Legal Sex Female 8:36 PM EDT Gender Identity Female 08/01/2022 12:40 PM EST Sexual Orientation Straight 10/04/2022 3: 13 PM EST Last Filed Vital Signs Vital Sign Reading Time Taken Comments Blood Pressure 129/80 02/17/2025 11:03 AM EDT Pulse 82 02/17/2025 11:03 AM EDT Temperature 36.4 C (97.6 F) 02/17/2025 11:03 AM EDT Respiratory Rate 16 01/29/2025 10:18 AM EDT Oxygen Saturation 95% 02/17/2025 11:03 AM EDT Inhaled Oxygen Concentration - - Weight 70.3 kg (155 lb) 02/17/2025 11:03 AM EDT Height 162.6 cm (5' 4 ) 02/17/2025 11:03 AM EDT Body Mass Index 26.61 02/17/2025 11:03 AM EDT Plan of Treatment Upcoming Encounters Date Type Department Care Team (Late st Contact Info) Description 04/30/2025 10:30 AM EDT Office Visit [facility] OPTOMETRY [address] [place] [address] Parris Torres, YONI [address] [place] [address] 05/01/2025 10:00 AM EDT Office Visit [facility] MED[facility] [address] [place] [address] Sherice John MD [address] [place] [address] Health Maintenance Due Date Last Done Comments CT Colonography 1952 FIT DNA/Cologuard 1952 FIT 1952 FOBT 1950 Sigmoidoscopy 1950 Zoster Vaccines (1 of 2) 2002 HPV/Cotest 01/31/2021 COVID-19 Vaccine ( season) 2025 07/25/2024, 12/04/2023, 05/18/2023, Additional history exists Influenza Vaccine (#1) 2025 , 05/18/2023, 06/27/2022, Additional history exists Depression Screening 12/31/2025 12/31/2024, 01/01/20 25 Mammogram 12/31/2025 01/01/2024, 12/18, 01/01/2024, Additional history exists Alcohol/Substance Use Screening 01/01/2026 01/01/2025 SDOH Screening 01/01/2026 01/01/2025 Tobacco Screening 02/17/2026 02/17/2025 Lipid Panel 09/07/2027 09/07/2022, 11/08/2021 Colonoscopy 05/06/2034 05/06/2024, 06/0 04/2014, 12/26/2013 Colorectal Cancer Screening 05/06/2034 DTaP/Tdap/Td Vaccines (3 - Td or Tdap) 01/29/2035 01/29/2025, 05/10/2012 Hepatitis C Screening Completed 08/20/2011 Pap Smear Discontinued 02/01/2016 Pneumococcal Vaccine: 50+ Years Completed 07/14/2019, 08/24/2017 RSV Patients and Patients Aged 60 years or older Completed 05/21/2024 HIB Vaccines Aged Out No [...] Comments XR CHEST 2 VIEWS Routine 04/06/2025 11:2 8 AM EDT XR RIBS BILATERAL 4+ VW W PA CHEST Routine 02/24/2025 12:58 PM EDT VITAMIN D 25 HYDROXY Routine 01/29/2025 11:00 AM EDT Osteoporosis, unspecified osteoporosis type, unspecified pathological fracture presence COMPREHENSIVE METABOLIC PANEL Routine 01/29/2025 11:00 AM EDT Abdominal distension HM COLONOSCOPY Routine 05/06/2024 1:27 PM EDT BI MAMMOGRAM SCREENING TOMOSYNTHESIS BILATERAL Routine 01/01/2024 2:48 PM EDT LIPID PANEL, STANDARD Routine 09/07/2022 12:08 PM EST High cholesterol PAP SMEAR Routine 02/01/2016 12:00 AM EDT HEPATITIS C ANTIBODY (EXTERNAL RESULTS ONLY) Routine 08/20/2011 3:22 PM EST from Last 3 Months or Most Recently Relevant to Health Maintenance Results * XR Chest 2 Views (04/06/2025 11:28 AM EDT) Anatomical Region Laterality Modality Chest Radiographic Tami ging Historical Provider IMG XR PROCEDURES Final R esult * XR RIBS BILATERAL 4+ VW W PA CHEST (02/24/2025 12:58 PM EDT) Anatomical Region Laterality Modality Rib, Abdomen Bilateral Radiographic Tami ging Sherice John MD IMG XR PROCEDURES Final Result * Vitamin D 25 hydroxy [id number] (01/29/2025 11:00 AM EDT) Vitamin D, 25-OH, Total 56.8 30.0 - 100.0 ng/mL [facility] 1 Comment: Vitamin D deficiency has been defined by the [place] [employer] and an Endocrine Society practice guideline as a level of serum 25-OH vitamin D less than 20 ng/mL (1,2). The Endocrine Society went on to further define vitamin D insufficiency as a level between 21 and 29 ng/mL (2). 1. IOM ([place] [employer]). 2010. Dietary reference intakes for calcium and D. [place]: The National Academies Press. 2. [place] MF, Rudi NC, Leigh Ann-Barak KELLER, et al. Evaluation, treatment, and prevention of vitamin D deficiency: an Endocrine Society clinical practice guideline. JCEM. 2010; 96(7):1911-30. Blood Venous blood specimen / Unknown 01/29/2025 11:00 AM EDT 01/29/2025 Narrative [facility] 1 - 01/30/2025 6:05 AM EDT Performed at: 01 - [facility] [address] [id number] Grocery Cashier: Trudy Zamudio MD, Phone: [phone] Sherice John MD LAB BLOOD ORDERABLES Final Resul t [facility] 1 * (ABNORMAL) Comprehensive metabolic panel (01/29/2025 11:00 AM EDT) Glucose 91 70 - 99 mg/dL [facility] 1 Urea Nitrogen (BUN) 23 8 - 27 mg/dL [facility] 1 Creatinine, Serum 0.87 0.57 - 1.00 mg/dL [facility] 1 eGFR 71 >59 mL/min/1.7 3 [facility] 1 BUN/Creatinine Ratio 26 12 - 28 [facility] 1 Sodium 141 134 - 144 mmol/L [facility] 1 Potassium 4.4 3.5 - 5.2 mmol/L [facility] 1 Chloride 101 96 - 106 mmol/L [facility] 1 Anion Gap 15.0 10.0 - 18.0 mmol/L [facility] 1 Carbon Dioxide 25 20 - 29 mmol/L [facility] 1 Calcium 9.5 8.7 - 10.3 mg/dL [facility] 1 Protein, Total 7.2 6.0 - 8.5 g/dL [facility] 1 Albumin 4.5 3.8 - 4.8 g/dL [facility] 1 Globulin 2.7 1.5 - 4.5 g/dL [facility] 1 Bilirubin, Total 0.4 0.0 - 1.2 mg/dL [facility] 1 Alkaline Phosphatase 210(H) 44 - 121 IU/L [facility] 1 AST 15 0 - 40 IU/L [facility] 1 ALT 15 0 - 32 IU/L [facility] 1 Blood Venous blood specimen / Unknown 01/29/2025 11:00 AM EDT 01/29/2025 Narrative [facility] 1 - 01/30/2025 12:05 AM EDT Performed at: [facility] [id number] Grocery Cashier: Trudy Zamudio MD, Phone: [phone] us Sherice John MD LAB BLOOD ORDERABLES Final Resul t [facility] * Hm Colonoscopy (05/06/2024 1:27 PM EDT) us Sherice John MD HEALTH MAINTENANCE Final Result * BI Mammogram Screening Tomosynthesis Bilateral (01/01/2024 2:48 PM EDT) Anatomical Region Laterality Modality Breast Bilateral Mammography us Sherice John MD IMG BI PROCEDURES Final Result * Lipid panel (09/07/2022 12:08 PM EST) Cholesterol, Total 164 (<200) MG/DL [facility] Triglyceride (mg/dL) in Serum/Plasma 83 (<150) MG/DL [facility] HDL Cholesterol 75 (>39) MG/DL [facility] LDL Cholesterol, Calculated 72 (0-130) MG/DL [facility] Non HDL Chol. (LDL+VLDL) 89 (<160) MG/DL [facility] Comment: Testing performed or reported by [facility], a Service of [facility], [address] [place] [address] Lulu Masters MD, Gambling Cashier [facility]# [id number] Blood Venous blood specimen / Unknown 09/07/2022 12:08 PM EST 09/07/2022 12:10 PM EST Result [facility] Sherice John MD LAB BLOOD ORDERABLES Final Resul t [facility] [address] [place] [address] * Pap Smear (02/01/2016 12:00 AM EDT) Swab Historical Provider LAB CYTOLOGY ORDERABLES F inal Result * Hepatitis C Antibody (08/20/2011 3:22 PM EST) Hepatitis C Antibody Nonreactive Blood 08/20/2011 3:22 PM EST Historical Provider POINT OF CARE TEST ENTER/ EDIT ORDERABLES Final Result from Last 3 Months or Most Recently Relevant to Health Maintenance Insurance MEDICARE [facility] Care Teams Office Machine Servicer Apprentice Relationship Specialty Start Date End Date Sherice John MD [address] [place] [phone] PCP - General Internal Medicine 08/08/22
--- OUTSIDE RECORDS SUMMARY | 2025-04-14 15:46 | XMS_ITS | Clinical Summary ---
Author Organization [facility] Address [address] [place] [address] Care Team Providers Care Medical Reception Specialist Name Role Phone Sherice John MD Primary Care Provider [phone] Allergies Active Allergy Reactions Criticality Noted Date [...] topic Insurance MEDICARE PART A & B [facility] [employer] Care Teams Medical Reception Specialist Relationship Specialty Start Date End Date Sherice John MD [address] [place] [address] PCP - General 12/12/18
--- OUTSIDE RECORDS SUMMARY | 2025-04-14 15:46 | XMS_ITS | Encounter Summary ---
Author Organization [facility] Address [address] [place] [address] Phone Care Team Providers Care Adult Daycare Coordinator Name Role Phone Sherice John MD Primary Care Provider Deya Sotelo MD Unavailable Joni Deleon MD Unavailable Mikal Jones MD Unavailable Lulú Vizcaino [facility] Unavailable [phone] Encounter Details Date Type Department Care Team (Late st Contact Info) Description 10/22/2018 Ancillary Orders Virtual Department [address] [place] [address] Sherice John MD [address] [place] [phone] [email or web address] Shortness of breath Social History Tobacco Use Types Packs/Day Years [...] PM EDT Office Visit [facility] [address] [place] [address] Rogelio Torrez DO [address] [place] [address] [email or web address] 12/10/2025 10:40 AM EDT Appointment [facility] [address] [place] [address] Lulú Vizcaino MBBS [address] [place] [address] [email or web address] 12/10/2025 11:40 AM EDT Office Visit [facility] [address] [place] [address] Lulú Vizcaino MBBS [address] [place] [address] [email or web address] 03/03/2026 8:30 AM EDT Telemedicine [facility] Cardiac Arrhythmia Service 32 [facility], 5th Floor, [address] [place] [address] Angel Domínguez MD [address] [facility] [place] [address] [email or web address] documented as of this encounter Visit Diagnoses Diagnosis Shortness of breath documented in this encounter Additional Health Concerns [...] documented as of this encounter Care Teams Adult Daycare Coordinator Relationship Specialty Start Date End Date Sherice John MD [address] [place] [address] [email or web address] PCP - General Internal Medicine 03/08/18 Deya Sotelo MD [address] [place] [address] [email or web address] Primary Oncologist Hematology and Oncology 11/27/2211/18 Joni Deleon MD [address] [place] [address] [place] [address] Pulmonary Disease 07/18/23 Mikal Jones MD [address] [place] [address] [place] [address] Cardiology 07/23/23 Lulú Vizcaino MBBS 2 [facility] Center [address] [place] [address] [email or web address] Primary Oncologist Medical Oncology 11/29/23 documented as of this encounter Additional Source Comments The information contained in this document represents components of the legal health record. It is not the complete legal health record.[facility]
--- OUTSIDE RECORDS SUMMARY | 2025-04-14 15:46 | XMS_ITS | Encounter Summary ---
Author Organization [employer] Address 75 [facility] 7t [place] [address] Care Team Providers Care Element Burner Name Role Phone Sherice John MD Primary Care Provider [phone] Encounter Details Date Type Department Care Team (Late st Contact Info) Description 12/22/2024 Orders Only [facility] [address] [place] [address] Sherice John MD [address] [place] [address] Social History Tobacco Use Types Packs/Day Years [...] Description 04/30/2025 10:30 AM EDT Office Visit [facility] OPTOMETRY [address] [place] [address] Parris Torres, OD [address] [place] [address] 05/01/2025 10:00 AM EDT Office Visit [facility] MEDICAL [address] [place] [address] Sherice John MD [address] [place] [address] documented as of this encounter Procedures Procedure Name Priority Date/Time Associated Diagnosis Comments MRI LUMBAR SPINE WO CONTRAST Routine 12/20/2024 9:24 AM EDT documented in this encounter Results * MRI LUMBAR SPINE WO CONTRAST (12/20/2024 9:24 AM EDT) Anatomical Region Laterality Modality Magnetic Resonan ce Sherice John MD IMG MRI PROCEDURES Final Result documented in this encounter Visit Diagnoses Not on filedocumented in this encounter Care Teams Element Burner Relationship Specialty Start Date End Date Sherice John MD [address] [place] [address] PCP - General Internal Medicine 08/08/22 documented as of this encounter
--- OUTSIDE RECORDS SUMMARY | 2025-04-14 15:46 | XMS_ITS | Encounter Summary ---
Author Organization [facility] Address [address] [place] [address] Phone Care Team Providers Care Concrete Stone Finisher Name Role Phone Sherice John MD Primary Care Provider Joni Deleon MD Unavailable [phone] Mikal Jones MD Unavailable Lulú Vizcaino [facility] Unavailable Encounter Details Date Type Department Care Team (Latest Contact Info) Description 05/30/2024 Transcribe Orders Virtual Department [address] [place] [address] Sherice John MD [address] [place] [address] [email or web address] Right foot pain (Primary Dx) Social History Tobacco [...] 1:00 PM EDT Office Visit [facility] [address] [place] [address] Rogelio Torrez DO [address] [place] [address] 12/10/2025 10:40 AM EDT Appointment [facility] [address] [place] [address] Lulú Vizcaino MBBS [address] [place] [address] [email or web address] 12/10/2025 11:40 AM EDT Office Visit [facility] [address] [place] [address] Lulú Vizcaino MBBS [address] [place] [address] [email or web address] 03/03/2026 8:30 AM EDT Telemedicine [facility] Cardiac Arrhythmia Service 32 [facility], 5th Floor, [address] [place] [address] Angel Domínguez MD 55 [facility] [address] [place] [address] [email or web address] documented as of this encounter Visit Diagnoses Diagnosis Right foot pain- Primary Pain in soft tissues of limb documented in this encounter Care Teams Concrete Stone Finisher Relationship Specialty Start Date End Date Sheriec John MD [address] [place] [address] [email or web address] PCP - General Internal Medicine 03/08/18 Joni Deleon MD [address] [place] [address] [place] [address] Pulmonary Disease 07/18/23 Mikal Jones MD 2 [facility] Center [address] [place] [address] Cardiology 07/23/23 Lulú Vizcaino MBBS 2 [facility] [address] [place] [address] [email or web address] Primary Oncologist Medical Oncology 11/29/23 documented as of this encounter Additional Source Comments The information contained in this document represents components of the legal health record. It is not the complete legal health record.[facility]
--- OUTSIDE RECORDS SUMMARY | 2025-04-14 15:46 | XMS_ITS | Encounter Summary ---
Author Organization [email or web address] Address 75 [facility] 7t [place] [address] Care Team Providers Care Diamond Grader Name Role Phone Sherice John MD Primary Care Provider [phone] Encounter Details Date Type Department Care Team (Late st Contact Info) Description 01/16/2024 Orders Only [facility] MEDICAL [address] [place] [address] Provider, MD Kiersten Social History Tobacco Use [...] Office Visit [facility] OPTOMETRY [address] [place] [address] Parris Torres, OD [address] [place], [place] [id number] 05/01/2025 10:00 AM EDT Office Visit [facility] MEDICAL [address] [place] [address] Sherice John MD [address] [place] [address] documented as of this encounter Procedures Procedure Name Priority Date/Time Associated Diagnosis Comments TRANSTHORACIC ECHO (TTE) COMPLETE Routine 01/03/2024 4:27 AM EDT documented in this encounter Results * Transthoracic echo (TTE) complete (01/03/2024 4:27 AM EDT) us Historical Provider CV ECHO PROCEDURES Final Result documented in this encounter Visit Diagnoses Not on filedocumented in this encounter Care Teams Diamond Grader Relationship Specialty Start Date End Date Sherice John MD [address] [place] [address] PCP - General Internal Medicine 08/08/22 documented as of this encounter
--- OUTSIDE RECORDS SUMMARY | 2025-04-14 15:47 | XMS_ITS | Encounter Summary ---
Author Organization [facility] Address [address] [place] [address] Phone Care Team Providers Care Chain Mender Name Role Phone Sherice John MD Primary Care Provider [phone] Joni Deleon MD Unavailable Mikal Jones MD Unavailable Lulú Vizcaino [facility] Unavailable Reason for Referral * Outpatient Procedure - Closed Specialty Diagnoses / Procedures Referred By Tyler yeung Referred To Contact Radiology Diagnoses Syncope, unspecified syncope type Procedures US Carotid Duplex Complete (Bilateral) Sherice John MD Phone: tel: fax: mailto:[email or web address] Referral ID Status Reason Start Date Expiration Date Visits Re quested Visits Authorized [id number] Closed 11/03/2024 11/03/2025 1 1 Encounter Details Date Type Department Care Team (Latest Contact Info) Description 11/03/2024 Transcribe Orders Virtual Department 30 [place] [address] Sherice John MD 73 [place] [address] Syncope, unspecified syncope type (Primary Dx) Social [...] PM EDT Office Visit [facility] [address] [place] [address] Rogelio Torrez DO [address] [place] [address] 12/10/2025 10:40 AM EDT Appointment [facility] 30 [place] [address] Lulú Vizcaino MBBS 30 [place] [address] [email or web address] 12/10/2025 11:40 AM EDT Office Visit [facility] 30 [place] [address] Lulú Vizcaino MBBS 30 [place] [address] [email or web address] 03/03/2026 8:30 AM EDT Telemedicine [facility]hythmia Service 32 [facility], 5th Floor, [address] [place] [address] Angel Domínguez MD 55 [facility] [address] [place] [address] [email or web address] documented as of this encounter Results * US Carotid Duplex Complete (Bilateral) (11/05/2024 11:11 AM EDT) Anatomical Region Laterality Modality Heart, Thoracic Vasculature, Neck Ultrasound 11/05/2024 11:3 1 AM EDT Narrative 11/05/2024 5:17 PM EDT US CAROTID DUPLEX COMPLETE (BILATERAL) Referring clinician's provided indication for this examination in Epic: Outside Radiology Order; syncope TECHNIQUE: A duplex ultrasound evaluation of the common carotid, internal carotid, external carotid, vertebral, and subclavian arteries was performed using weston scale, color duplex and spectral Doppler analysis. COMPARISON: No previous relevant examinations FINDINGS: Exam Quality: Technically adequate exam demonstrates: RIGHT Common Carotid Artery (cm/s): Proximal Systolic: 125 Proximal Diastolic: 37 Mid Systolic: 117 Mid Diastolic: 37.3 Distal Systolic: 108 Distal Diastolic: 35 Internal Carotid Artery (cm/s): Proximal Systolic: 115 Proximal Diastolic: 45.4 Mid Systolic: 112 Mid Diastolic: 47 Distal Systolic: 115 Distal Diastolic: 47 External Carotid Artery (cm/s): Systolic: 122 Diastolic: 21 Vertebral Artery (cm/s): Systolic: 94 Diastolic: 24 Subclavian Artery (cm/s): Systolic: 142 Diastolic: 0 ICA/CCA Ratio: 1.0 ICA Stenosis: Normal ICA Plaque: None Visualized LEFT Common Carotid Artery (cm/s): Proximal Systolic: 111 Proximal Diastolic: 35 Mid Systolic: 98.8 Mid Diastolic: 33.5 Distal Systolic: 106 Distal Diastolic: 41 Internal Carotid Artery (cm/s): Proximal Systolic: 102 Proximal Diastolic: 32.2 Mid Systolic: 92 Mid Diastolic: 35 Distal Systolic: 109 Distal Diastolic: 45 External Carotid Artery (cm/s): Systolic: 132 Diastolic: 20 Vertebral Artery (cm/s): Systolic: 91.3 Diastolic: 29.2 Subclavian Artery(cm/s): Systolic: 132 Diastolic: 0 ICA/CCA Ratio: 1.0 ICA Stenosis: Normal ICA Plaque: None Visualized Abbreviations: CCA = Common Carotid Artery. ICA = Internal Carotid Artery. ECA = External Carotid Artery. Vert = Vertebral Artery. ICA/CCA Ratio = maximal ICA PSV divided by the distal CCA PSV. DIRECT TEST FINDINGS: Right: Doppler flow velocities and waveform contours are within normal limits throughout the internal carotid artery, no plaque is visualized. No plaque is visualized in the common carotid artery. Unremarkable external carotid artery. Anterograde flow is noted in the vertebral artery. The subclavian artery is patent. Left: Doppler flow velocities and waveform contours are within normal limits throughout the internal carotid artery, no plaque is visualized. No plaque is visualized in the common carotid artery. Unremarkable external carotid artery. Anterograde flow is noted in the vertebral artery. The subclavian artery is patent. IMPRESSIONS: 1. No stenosis noted in the right internal carotid artery. 2. No stenosis noted in the left internal carotid artery. 3. No stenosis is noted in the common carotid arteries bilaterally. 4. Unremarkable external carotid arteries bilaterally. 5. Antegrade flow in the bilateral cervical vertebral arteries. 6. Normal examination of the bilateral subclavian arteries. STENOSIS: Internal carotid artery stenosis by duplex ultrasonography has been validated by comparing findings with angiographic stenosis. NASCET methods were used, where the most severe stenosis represents the numerator, and the normal internal carotid artery diameter distal to the stenosis where the gilbert are parallel represents the denominator. Procedure Note Azar Kapadia MD - 11/05/2024 US CAROTID DUPLEX COMPLETE (BILATERAL) Referring clinician's provided indication for this examination in Epic:Outside Radiology Order; syncope TECHNIQUE: A duplex ultrasound evaluation of the common carotid, internalcarotid, external carotid, vertebral, and subclavian arteries wasperformed using weston scale, color duplex and spectral Doppler analysis. COMPARISON: No previous relevant examinations FINDINGS: Exam Quality: Technically adequate exam demonstrates: RIGHT Common Carotid Artery (cm/s): Proximal Systolic: 125 Proximal Diastolic: 37 Mid Systolic: 117 Mid Diastolic: 37.3 Distal Systolic: 108 Distal Diastolic: 35 Internal Carotid Artery (cm/s): Proximal Systolic: 115 Proximal Diastolic: 45.4 Mid Systolic: 112 Mid Diastolic: 47 Distal Systolic: 115 Distal Diastolic: 47 External Carotid Artery (cm/s): Systolic: 122 Diastolic: 21 Vertebral Artery (cm/s): Systolic: 94 Diastolic: 24 Subclavian Artery (cm/s): Systolic: 142 Diastolic: 0 ICA/CCA Ratio: 1.0 ICA Stenosis: Normal ICA Plaque: None Visualized LEFT Common Carotid Artery (cm/s): Proximal Systolic: 111 Proximal Diastolic: 35 Mid Systolic: 98.8 Mid Diastolic: 33.5 Distal Systolic: 106 Distal Diastolic: 41 Internal Carotid Artery (cm/s): Proximal Systolic: 102 Proximal Diastolic: 32.2 Mid Systolic: 92 Mid Diastolic: 35 Distal Systolic: 109 Distal Diastolic: 45 External Carotid Artery (cm/s): Systolic: 132 Diastolic: 20 Vertebral Artery (cm/s): Systolic: 91.3 Diastolic: 29.2 Subclavian Artery(cm/s): Systolic: 132 Diastolic: 0 ICA/CCA Ratio: 1.0 ICA Stenosis: Normal ICA Plaque: None Visualized Abbreviations: CCA = Common Carotid Artery. ICA = Internal Carotid Artery. ECA =External Carotid Artery. Vert = Vertebral Artery. ICA/CCA Ratio = maximalICA PSV divided by the distal CCA PSV. DIRECT TEST FINDINGS: Right: Doppler flow velocities and waveform contours are within normallimits throughout the internal carotid artery, no plaque is visualized. [place] is visualized in the common carotid artery. Unremarkable externalcarotid artery. Anterograde flow is noted in the vertebral artery. Thesubclavian artery is patent. Left: Doppler flow velocities and waveform contours are within normallimits throughout the internal carotid artery, no plaque is visualized. [place] is visualized in the common carotid artery. Unremarkable externalcarotid artery. Anterograde flow is noted in the vertebral artery. Thesubclavian artery is patent. IMPRESSIONS: 1. No stenosis noted in the right internal carotid artery. 2. No stenosis noted in the left internal carotid artery. 3. No stenosis is noted in the common carotid arteries bilaterally. 4. Unremarkable external carotid arteries bilaterally. 5. Antegrade flow in the bilateral cervical vertebral arteries. 6. Normal examination of the bilateral subclavian arteries. STENOSIS: Internal carotid artery stenosis by duplex ultrasonography hasbeen validated by comparing findings with angiographic stenosis. NASCETmethods were used, where the most severe stenosis represents thenumerator, and the normal internal carotid artery diameter distal to thestenosis where the gilbert are parallel represents the denominator. us Sherice John MD CV US NEUROVASCULAR Final Resu lt documented in this encounter Visit Diagnoses Diagnosis Syncope, unspecified syncope type- Primary Syncope, unspecified syncope type documented in this encounter Care Teams Chain Mender Relationship Specialty Start Date End Date Sherice John MD [address] [place] [address] [email or web address] PCP - General Internal Medicine 03/08/18 Joni Deleon MD [address] [place] [address] [place] [address] Pulmonary Disease 07/18/23 Mikal Jones MD [facility] [address] [place] [address] Cardiology 07/23/23 Lulú Vizcaino MBBS 2 [facility] [address] [place] [address] [email or web address] Primary Oncologist Medical Oncology 11/29/23 documented as of this encounter Additional Source Comments The information contained in this document represents components of the legal health record. It is not the complete legal health record.[facility]
--- OUTSIDE RECORDS SUMMARY | 2025-04-14 15:47 | XMS_ITS | Encounter Summary ---
Author Organization [facility] Address [address] [facility] [address] [place] [address] Phone Care Team Providers Care Engagement Executive Name Role Phone Sherice John MD Primary Care Provider [phone] Deya Sotelo MD Unavailable Joni Deleon MD Unavailable Mikal Jones MD Unavailable [phone] Lulú Vizcaino Unavailable Encounter Details Date Type Department Care Team (Late st Contact Info) Description 10/15/2023 Procedure Pass [facility] [place] [address] [facility], Floor 9, [address] [place] [address] Social History Tobacco Use Types Packs/Day Years [...] PM EDT Office Visit [facility] 22 [place] [address] Rogelio Torrez DO 22 [place] [address] [email or web address] 12/10/2025 10:40 AM EDT Appointment [facility] 30 [place] [address] Lulú Vizcaino MBBS 30 [place] [address] [email or web address] 12/10/2025 11:40 AM EDT Office Visit [facility] 30 [place] [address] Lulú Vizcaino MBBS [address] [place] [address] [email or web address] 03/03/2026 8:30 AM EDT Telemedicine [facility] [place]iac Arrhythmia Service 32 [facility], 5th Floor, [address] [place] [address] Angel Domínguez MD 55 [facility] [address] [place] [address] [email or web address] documented as of this encounter Visit Diagnoses Not on filedocumented in this encounter Care Teams Engagement Executive Relationship Specialty Start Date End Date Sherice John MD 73 [place] [address] [email or web address] PCP - General Internal Medicine 03/08/18 Deya Sotelo MD [address] [address] [email or web address] Primary Oncologist Hematology and Oncology 11/27/2211/18 Joni Deleon MD [address] [place] [address] [place] [address] Pulmonary Disease 07/18/23 Mikal Jones MD 2 [facility] Center [address] [place] [address] Cardiology 07/23/23 Lulú Vizcaino MBBS 2 [facility] Center [address] [place] [address] [email or web address] Primary Oncologist Medical Oncology 11/29/23 documented as of this encounter Additional Source Comments The information contained in this document represents components of the legal health record. It is not the complete legal health record.[facility]
--- OUTSIDE RECORDS SUMMARY | 2025-04-14 15:47 | XMS_ITS | Encounter Summary ---
Author Organization [employer] Address [address] [facility] 7t [place] [address] Care Team Providers Care Weight Trainer Name Role Phone Sherice John MD Primary Care Provider [phone] Encounter Details Date Type Department Care Team (Late st Contact Info) Description 12/07/2023 Orders Only [place] [facility] 58 [place] [address] Sherice John MD 73 [place] [address] Social History Tobacco Use Types Packs/Day Years [...] 10:30 AM EDT Office Visit [facility] OPTOMETRY 73 [place] [address] Parris Torres, OD 73 [place] [address] 05/01/2025 10:00 AM EDT Office Visit [facility] MEDICAL [address] [place] [address] Sherice John MD [address] [place] [address] documented as of this encounter Procedures Procedure [...] on filedocumented in this encounter Care Teams Weight Trainer Relationship Specialty Start Date End Date Sherice John MD [address] [place] [address] PCP - General Internal Medicine 08/08/22 documented as of this encounter
--- OUTSIDE RECORDS SUMMARY | 2025-04-14 15:47 | XMS_ITS | Encounter Summary ---
Author Organization [employer] Address [address] [facility] 7t [place] [address] Care Team Providers Care Tailings Man Name Role Phone Sherice John MD Primary Care Provider [phone] Encounter Details Date Type Department Care Team (Late st Contact Info) Description 10/01/2023 Orders Only [place] 58 [place] [address] Sherice John MD 73 [place] [address] Social History Tobacco Use Types Packs/Day Years [...] Description 04/30/2025 10:30 AM EDT Office Visit [facility] OPTOMETRY 73 [place] [address] Parris Torres, OD 73 [place] [address] 05/01/2025 10:00 AM EDT Office Visit [facility] MEDICAL 73 [place] [address] Sherice John MD 73 [place] [address] documented as of this encounter Procedures Procedure Name Priority Date/Time Associated Diagnosis Comments CBC WITH AUTO DIFFERENTIAL Routine 10/01/2023 documented in this encounter Results * CBC auto differential (10/01/2023) Blood Venous blood specimen / Unknown us Sherice John MD LAB BLOOD ORDERABLES Edited Resu lt - Final documented in this encounter Visit Diagnoses Not on filedocumented in this encounter Care Teams Tailings Man Relationship Specialty Start Date End Date Sherice John MD [address] [place] [address] PCP - General Internal Medicine 08/08/22 documented as of this encounter
--- OUTSIDE RECORDS SUMMARY | 2025-04-14 15:47 | XMS_ITS | Clinical Summary ---
Author Organization [facility] [employer] [facility] Address [address] [place] [address] Phone Care Team Providers Care Hypoid Gear Tester Name Role Phone Sherice John MD Primary Care Provider [phone] Allergies Active Allergy Reactions Criticality Noted Date [...] diltiazem and mexiletine. Appreciate management from [facility] electrophysiology. Seasonal allergies 11/07/2022 Moderate persistent asthma [...] defer management of this issue to her operations forester. Fortunately her dyspnea on exertion has been stable and is not significantly interfering with her quality of life. Mild persistent asthma 02/07/2019 GERD (gastroesophageal reflux disease) 9 Encounters Date Type Department Care Team Description 01/19/2025 Telephone [facility] Cardiology [facility] 2 [facility] Center [address] [place] [address] Sherice John MD from Last 3 Months Immunizations Name Administration [...] KNEE REPLACE KIDNEY STONE SURGERY 01/2017 PROCEDURE: [place] NEPHROLITHOTOMY REMOVAL CALCULUS; COMMENT: Ureteroscopy/stone removal /stent [...] 06/23/2025 10:40 AM EST Office Visit [facility] Cardiology [facility] [address] [place] [address] Dante Ghotra NP [address] [place] [address] Dr Cedeño [address] [place] [address] Health Maintenance Due Date Last Done Comments [...] AM EST Performed at: 01 - [facility] [address] [id number] Manufacturing Industrial Engineer: Trudy Zamudio MD, Phone: [phone] us Reshma Jannie EARLY CHILDHOOD EDUCATION SPECIALIST LAB BLOOD ORDERABLES Final R esult [facility] 1 from Last 3 Months or Most Recently Relevant to Health Maintenance Insurance MEDICARE [facility]LY [facility] Care Teams Hypoid Gear Tester Relationship Specialty Start Date End Date Sherice John MD 73 [place] [address] PCP - General Internal Medicine 01/10/19
--- OUTSIDE RECORDS SUMMARY | 2025-04-14 15:47 | XMS_ITS | Encounter Summary ---
Author Organization [employer] Address [address] [facility] 7t [place] [address] Care Team Providers Care Microeconomics Professor Name Role Phone Sherice John MD Primary Care Provider [phone] Encounter Details Date Type Department Care Team (Late st Contact Info) Description 12/19/2023 Orders Only [facility] 58 [place] [address] Sherice John MD 73 [place] [address] Social History Tobacco Use Types Packs/Day Years [...] EDT Office Visit [facility] OPTOMETRY 73 [place] [address] Parris Torres, OD 73 [place] [address] 05/01/2025 10:00 AM EDT Office Visit [facility] MEDICAL [address] [place] [address] Sherice John MD 73 [place] [address] documented as of this encounter Procedures Procedure [...] on filedocumented in this encounter Care Teams Microeconomics Professor Relationship Specialty Start Date End Date Sherice John MD [address] [place] [address] PCP - General Internal Medicine 08/08/22 documented as of this encounter
--- OUTSIDE RECORDS SUMMARY | 2025-04-14 15:47 | XMS_ITS | Encounter Summary ---
Author Organization [facility] Address [address] [place] [address] [place] [address] Phone Care Team Providers Care Physician Relations Representative Name Role Phone Sherice John MD Primary Care Provider Joni Deleon MD Unavailable Mikal Jones MD Unavailable Lulú Vizcaino [facility] Unavailable Encounter Details Date Type Department Care Team (Latest Contact Info) Description 11/23/2024 Transcribe Orders Virtual Department 30 [place] [address] Sherice John MD 73 [place] [address] [email or web address] Acute midline low back pain without sciatica (Primary Dx) [...] PM EDT Office Visit [facility] 22 [place] [address] Rogelio Torrez DO 22 [place] [address] 12/10/2025 10:40 AM EDT Appointment [facility] [address] [place] [address] Lulú Vizcaino MBBS [address] [place] [address] [email or web address] 12/10/2025 11:40 AM EDT Office Visit [facility] 30 [place] [address] Lulú Vizcaino MBBS [address] [place] [address] [email or web address] 03/03/2026 8:30 AM EDT Telemedicine [facility] Cardiac Arrhythmia Service [address] [facility], 5th Floor, [address] [place] [address] Angel Domínguez MD [address] [facility] [address] [place] [address] [email or web address] Scheduled Orders Name Type Priority Associated Diagnoses Orde r Schedule XR Lumbar Spine Imaging Routine Acute midline low back pain without sciatica Expected: 11/23/2024, Expires: 11/23/2025 documented as of this encounter Visit Diagnoses Diagnosis Acute midline low back pain without sciatica- Primary documented in this encounter Care Teams Physician Relations Representative Relationship Specialty Start Date End Date Sherice John MD [address] [place] [address] [email or web address] PCP - General Internal Medicine 03/08/18 Joni Deleon MD [address] [place] [address] [place] [address] Pulmonary Disease 07/18/23 Mikal Jones MD [address] [place] [address] Center [address] [place] [address] Cardiology 07/23/23 Lulú Vizcaino MBBS [address] [place] [address] Center [address] [place] [address] [email or web address] Primary Oncologist Medical Oncology 11/29/23 documented as of this encounter Additional Source Comments The information contained in this document represents components of the legal health record. It is not the complete legal health record.[facility]
--- OUTSIDE RECORDS SUMMARY | 2025-04-14 15:47 | XMS_ITS | Encounter Summary ---
Author Organization [facility] Address [address] [place] [address] [place] [address] Phone Care Team Providers Care Account Specialist Name Role Phone Sherice John MD Primary Care Provider [phone] Joni Deleon MD Unavailable [phone] Mikal Jones MD Unavailable [phone] Lulú Vizcaino MB Unavailable [phone] Encounter Details Date Type Department Care Team (Late st Contact Info) Description 09/24/2024 Procedure Pass [facility], [address] [address] Social History Tobacco Use Types Packs/Day Years [...] 1:00 PM EDT Office Visit [facility] [address] [place] [address] Rogelio Torrez DO 22 [place] [address] 12/10/2025 10:40 AM EDT Appointment [facility] 30 [place] [address] Lulú Vizcaino MBBS 30 [place] [address] [email or web address] 12/10/2025 11:40 AM EDT Office Visit [facility] [place] 30 [place] [address] Lulú Vizcaino MBBS [address] [place] [address] [email or web address] 03/03/2026 8:30 AM EDT Telemedicine [facility] Cardiac Arrhythmia Service 32 [facility], 5th Floor, [address] [place] [address] Angel Domínguez MD [address] [facility] [address] [place] [address] [email or web address] documented as of this encounter Visit Diagnoses Not on filedocumented in this encounter Care Teams Account Specialist Relationship Specialty Start Date End Date Sherice John MD [address] [place] [address] [email or web address] PCP - General Internal Medicine 03/08/18 Joni Deleon MD [address] [place] [address] [place] [address] Pulmonary Disease 07/18/23 Mikal Jones MD 2 [facility] [address] [place] [address] Cardiology 07/23/23 Lulú Vizcaino MBBS 2 [facility] [address] [place] [address] [email or web address] Primary Oncologist Medical Oncology 11/29/23 documented as of this encounter Additional Source Comments The information contained in this document represents components of the legal health record. It is not the complete legal health record.[facility]
--- OUTSIDE RECORDS SUMMARY | 2025-04-14 15:47 | XMS_ITS | Encounter Summary ---
Author Organization [employer] Address [address] [facility] [address] [place] [address] Care Team Providers Care National Service Officer Name Role Phone Sherice John MD Primary Care Provider [phone] Encounter Details Date Type Department Care Team (Late st Contact Info) Description 07/31/2023 Orders Only [facility] [address] [place] [address] Sherice John MD [address] [place] [address] Social History Tobacco Use Types Packs/Day Years [...] Description 04/30/2025 10:30 AM EDT Office Visit [facility] OPTOMETRY [address] [place] [address] Parris Torres, OD [address] [place] [address] 05/01/2025 10:00 AM EDT Office Visit [facility] MEDICAL [address] [place] [address] Sherice John MD [address] [place] [address] documented as of this encounter Procedures Procedure Name Priority Date/Time Associated Diagnosis Comments TSH Routine 07/30/2023 documented in this encounter Results * TSH (07/30/2023) Blood Venous blood specimen / Unknown us Sherice John MD LAB BLOOD ORDERABLES Edited Resu lt - Final documented in this encounter Visit Diagnoses Not on filedocumented in this encounter Care Teams National Service Officer Relationship Specialty Start Date End Date Sherice John MD [address] [place] [id number] PCP - General Internal Medicine 08/08/22 documented as of this encounter
--- OUTSIDE RECORDS SUMMARY | 2025-04-14 15:47 | XMS_ITS | Encounter Summary ---
Author Organization [employer] Address [address] [facility] [address] [place] [address] Care Team Providers Care Academic Computing Director Name Role Phone Sherice John MD Primary Care Provider [phone] Encounter Details Date Type Department Care Team (Late st Contact Info) Description 08/25/2023 Orders Only [facility] [address] [place] [address] Sherice John MD [address] [place] [address] Social History Tobacco Use Types Packs/Day Years [...] AM EDT Office Visit [facility] OPTOMETRY [address] [place] [address] Parris Torres, OD [address] [place] [address] 05/01/2025 10:00 AM EDT Office Visit [facility] MEDICAL [address] [place] [address] Sherice John MD [address] [place] [address] documented as of this encounter Procedures Procedure Name Priority Date/Time Associated Diagnosis Comments XR CHEST 2 VIEWS Routine 08/17/2023 documented in this encounter Results * XR Chest 2 Views (08/17/2023) Anatomical Region Laterality Modality Chest Radiographic Tami ging Sherice John MD IMG XR PROCEDURES Edited Result - Final documented in this encounter Visit Diagnoses Not on filedocumented in this encounter Care Teams Academic Computing Director Relationship Specialty Start Date End Date Sherice John MD [address] [place] [id number] PCP - General Internal Medicine 08/08/22 documented as of this encounter
--- OUTSIDE RECORDS SUMMARY | 2025-04-14 15:47 | XMS_ITS | Clinical Summary ---
Author Organization [facility] Address [address] [place] [address] Phone Care Team Providers Care Sql Etl Developer Name Role Phone Sherice Paulino MD Primary Care Provider Joni Deleon MD Unavailable Mikal Jones MD Unavailable Lulú Vizcaino [facility] Unavailable [phone] Allergies Active Allergy Reactions Criticality Noted Date Comments Hydromorphone GI Upset,Mental Status Change 11/06/2019 Other reaction(s): hives and nausea pt states she has had hives and nausea after reciveing this medication in the past Patient has confusion on this medication. Mold 03/25/2019 Sulfa (Sulfonamide Antibiotics) Rash Low 02/07/2019 Other reaction(s): Flu-like symptoms Medications gabapentin (NEURONTIN) 400 MG capsule Take 1,200 mg by mouth nightly at bedtime. Active sertraline (ZOLOFT) 100 MG tablet Take 100 mg by mouth daily. Takes with 50 mg for 150 mg daily Active rosuvastatin (CRESTOR) 20 MG tablet Take 20 mg by mouth. Active cholecalciferol (VITAMIN D3) 2,000 unit tablet Take 1 tablet by mouth. Active levalbuterol (XOPENEX HFA) 45 mcg/actuation inhaler Inhale 1-2 puffs into the lungs every 4 (four) hours as needed for wheezing. Active lansoprazole (PREVACID) 30 MG capsule Take 30 mg by mouth daily. Active therapeutic multivitamin tablet Take 1 tablet by mouth daily. Active ID-denosumab <PROLIA> (17-912) 60 mg/mL subcutaneous injection Inject under the skin. Active levalbuterol (XOPENEX) 0.63 mg/3 mL nebulizer solution 03/19/20 21 Active SPIRIVA RESPIMAT 2.5 mcg/actuation mist for inhalation TAKE 2 PUFFS VIA INHALATION ONCE A DAY 11/30/19 22 Active lisinopril (PRINIVIL,ZESTRI L) 20 MG tabletIndication s:takes 20mg BID Take 20 mg by mouth daily. Indications: takes 20mg BID 11/12/19 22 Active calcium carbonate (OS-MILLA) 1,250 mg (500 mg elemental) tablet 1 tablet every morning. Active metroNIDAZOLE (METROLOTION) 0.75 % Lotn 1 application.. Ac tive ALPRAZolam (XANAX) 0.5 MG tablet Take 0.5 mg by mouth. 09/14/19 23 Active sertraline (ZOLOFT) 50 MG tablet Take 50 mg by mouth daily. 09/28/19 23 Active RESTASIS 0.05 % suspension ADMINISTER 1 DROP INTO BOTH EYES 2 TIMES DAILY. 11/21/19 23 Active furosemide (LASIX) 20 MG tablet Take 40 mg by mouth daily. 01/31/20 23 Active OXYGEN-AIR DELIVERY SYSTEMS MISC 2 L by Miscellaneous route daily as needed. On occasion Active azelaic acid (FINACEA) 15 % gel APPLY A THIN LAYER TO AFFECTED AREAS DIRECTED. 10/25/19 24 Active benzonatate (TESSALON) 200 MG capsule PRN 04/24/20 24 Active acetaminophen (TYLENOL) 650 MG CR tablet Take 1,300 mg by mouth every 8 (eight) hours as needed for pain (specific location in comments). Active JARDIANCE 10 mg tablet 09/05/19 25 Active traZODone (DESYREL) 50 MG tablet TAKE 1 TABLET ORALLY BEDTIME NEEDED FOR SLEEP FOR 30 DAYS Active ELIQUIS 5 mg tablet Take 1 tablet by mouth 2 (two) times a day. Active furosemide (LASIX) 40 MG tablet take 1 tablet by mouth 1 time each day. Active cyclobenzaprine (FLEXERIL) 10 MG tablet TAKE 1 TABLET (10 MG) BY MOUTH NEEDED IN THE MORNING , AT NOON, AND AT BEDTIME FOR MUSCLE SPASMS 01/17/20 25 Active oxyCODONE 5 MG immediate release tablet Take 1 tablet (5 mg total) by mouth every 6 (six) hours as needed for pain (specific location in comments). Partial fill ok 8 tablet 02/11/20 25 Active dilTIAZem (CARDIZEM CD) 120 MG 24 hr capsuleIndicatio ns:Palpitations TAKE 1 CAPSULE BY MOUTH EVERY DAY 90 capsule 3 03/27/20 25 Active mexiletine (MEXITIL) 150 MG capsuleIndicatio ns:PVC (premature ventricular contraction) TAKE 1 CAPSULE BY MOUTH TWICE A DAY 180 capsule 1 03/27/20 25 Active fluticasone propion-salmeter oL (ADVAIR DISKUS) 250-50 mcg/dose DISKUS Inhale 250 mcg/actuation of fluticasone into the lungs. 022 Discontin ued(Dupli axel order) dilTIAZem (CARDIZEM CD) 120 MG 24 hr capsuleIndicatio ns:Palpitations Take 1 capsule (120 mg total) by mouth daily. 90 capsule 3 03/26/20 24 025 Discontin ued(Reord er) mexiletine (MEXITIL) 150 MG capsuleIndicatio ns:PVC (premature ventricular contraction) TAKE 1 CAPSULE BY MOUTH TWICE A DAY 180 capsule 2 06/26/20 24 025 Discontin ued(Reord er) Active Problems Patient Care Coordination No te Formatting of this note migh t be different from the original. Height 161.7 cm no shoes 11/2023 Problem Noted Date Diagnosed Date MCDONALD (dyspnea on exertion) 02/28/2024 Thrombocytopenia 12/06/2023 Class 1 obesity 03/16/2023 03/16/2023 Pulmonary embolus 11/09/2022 03/16/2023 Assessment & Plan (12/05/2024 11:35 AM EDT): IMPRESSION: This is a 74-year-old woman with the following diagnoses: Unprovoked extensive PE Chronic mild thrombocytopenia likely normal variant DISCUSSION: I discussed all impression, natural history disease and further management in this regard. Patient had an unprovoked extensive pulmonary embolism and current guidelines recommend lifelong anticoagulation. Her dose was reduced to 2.5 which is recommended by current guidelines after a year of full therapeutic dose anticoagulation. On the other hand she subsequently developed atrial fibrillation and was placed back on full dose therapeutic Eliquis 5 mg every 12 hours which she will continue indefinitely. Thrombocytopenia. This is likely a normal variant. It has been chronic and overall stable. The fact that the rest of the CBC has been unremarkable is reassuring and speaks against any underlying hematological disease/bone marrow disease process. Patient does not need to undergo any further diagnostic intervention at this time. I recommended surveillance on a yearly basis. RECOMMENDATIONS: Continue Eliquis 5 mg every 12 hours indefinitely Return for follow-up in 1 year with a CBCD Thank you very much for allowing to participate in this patient's care Assessment & Plan (12/06/2023 9:13 PM EDT): IMPRESSION: This is a 73-year-old woman with the following diagnoses: Unprovoked extensive PE Chronic mild thrombocytopenia likely normal variant DISCUSSION: I discussed all impression, natural history disease and further management in this regard. Patient had an unprovoked extensive pulmonary embolism and current guidelines recommend lifelong anticoagulation. Her dose was reduced to 2.5 which is recommended by current guidelines after a year of full therapeutic dose anticoagulation. On the other hand she has not developed atrial fibrillation and is back on full dose therapeutic Eliquis 5 mg every 12 hours which she will continue indefinitely. Thrombocytopenia. This is likely a normal variant. It has been chronic and overall stable. The fact that the rest of the CBC has been unremarkable is reassuring and speaks against any underlying hematological disease/bone marrow disease process. Patient does not need to undergo any further diagnostic intervention at this time. I recommended surveillance on a yearly basis. RECOMMENDATIONS: Continue Eliquis 5 mg every 12 hours indefinitely Return for follow-up in 1 year with a CBCD Thank you very much for allowing to participate in this patient's care PVC (premature ventricular contraction) 11/08/1903/16/2023 Carpal tunnel syndrome on both sides 07/24/2022 03/16/2023 Age-related osteoporosis wit hout current pathological fracture 07/11/2022 03/16/2023 Overview (03/16/2023): Last Assessment & Plan: Pt will check on when next prolia is due. Generalized anxiety disorder 07/11/2022 Overview (03/16/2023): Psych prescriber: Rabia Gillespie; Therapist Rc Tom Assessment & Plan: Doing well weaning zoloft. Moderate persistent asthma without complication 07/11/2022 03/16/2023 Vertigo 07/11/2022 03/16/2023 Seasonal allergies 07/11/2022 03/16/2023 Bradycardia 03/13/2022 03/16/2023 HTN (hypertension) 10/23/2019 Assessment & Plan (10/23/2019 8:18 PM EST): -bp low on admission, lisinopril held Pneumonia 10/22/2019 Assessment & Plan (10/23/2019 8:17 PM EST): -On admission patient with hypotension, however afebrile with no tachycardia no tachypnea and no leukocytosis, no lactic acidosis -She does have very elevated procalcitonin of 12.16 which has now trended down to 6.27 -cont Ceftriaxone and Azithro ordered -continue albuterol PRN -ID consult appreciated, COVID unlikely -blood cx thus far neg -Legionella and strep pneumo neg -follow up flu and rsv pcr Allergic rhinitis 03/25/2019 Anxiety 03/25/2019 Aortic atherosclerosis 03/25/2019 CAD (coronary artery disease) 03/25/2019 Cataract 03/25/2019 Overview (06/01/2020): Bilateral Depression 03/25/2019 Hyperlipidemia 03/25/2019 Insomnia 03/25/2019 Migraine without aura 03/25/2019 Mitral valve regurgitation 03/25/2019 Overview (06/01/2020): 11/2018 CAIT: Mild Nephrolithiasis 03/25/2019 Osteoarthritis 03/25/2019 Overview (06/01/2020): Knees Osteoporosis 03/25/2019 Restless leg syndrome 03/25/2019 Vitamin D deficiency 03/25/2019 Total knee replacement status 03/25/2019 Overview (06/01/2020): 2018 Left GERD (gastroesophageal reflux disease) 9 Mild persistent asthma 02/07/2019 JACKIE (obstructive sleep apnea) 02/07/2019 Pulmonary hypertension 02/07/2019 Overview (06/01/2020): 11/22/18 CAIT: Mild Pneumonia of left lower lobe due to infectious o rganism Encounters Date Type Department Care Team Description 03/25/2025 Refill [facility] Cardiac Arrhythmia Service [address] [place] [address], 5th Floor, [address] [place] [address] Angel Domínguez MD Medication Refill 03/04/2025 9:00 AM EDT Telemedicine [facility] Cardiac Arrhythmia Service [address] [place] [address], 5th Floor, [address] [place] [address] Angel Domínguez MD PVC (premature ventricular contraction) (Primary Dx) 02/27/2025 2:48 PM EDT - 02/27/2025 11:59 PM EDT Hospital Encounter [facility] Laboratory [address] [place] [address] Angel Domínguez MD Discharge Disposition: Home or Self Care 02/10/2025 8:33 PM EDT - 02/10/2025 9:47 PM EDT Emergency [facility] [address] [place] [id number] Anirudh Rivero MD Discharge Disposition: Home or Self Care 02/10/2025 5:30 PM EDT Office Visit [facility] [place] [address] [place] [address] Manuel Garza CNP Chest pain, unspecified type (Primary Dx); Cat scratch 02/10/2025 1:20 PM EDT Telemedicine [facility] [address] [place] [address] Zelalem Johansen MD Cat scratch (Primary Dx) 02/08/2025 10:00 AM EDT Office Visit [facility] [place] [address] [place] [address] Stacey Mckeon CNP Cat scratch (Primary Dx) 01/14/2025 Transcribe Orders [facility] [address] [place] [address] Cinthia Jara MA Other osteoporosis with current pathological fracture, vertebra(e), initial encounter for fracture (Primary Dx); Age-related osteoporosis without current pathological fracture from Last 3 Months Immunizations Immunization Administration Dates Next Due COVID-19 (Pre-06/11) Pfizer Vaccine, Bivalent 12+ 04/28/2022 COVID-19 (Pre-06/11) Pfizer Vaccine, mRNA, PF 12/02/2021,06/10/2021,11/05/2020,10/15 INFLUENZA, SPLIT VIRUS, TRIVALENT PF 06/21/2018, 08/24/2017 INFLUENZA, SPLIT VIRUS, TRIV ALENT W/ PRESERVATIVE IM 07/14/2019,06/21/2018,08/24/2017,06/05 Influenza High-Dose Quadriva lent Preservative Free IM 05/18/2023,06/27/2022 Influenza High-Dose Trivalen t Preservative Free IM 05/11/2021,06/07/2020 Influenza Trivalent Adjuvant ed Preservative free IM 05/15/2024,07/14/2019 Pneumococcal conjugate PCV13 10/22/2019( Deferred: Patient Refused),10/22/2019(Deferred: Patient Refused),10/22/2019(Deferred: Not Available From [employer] Surveillance Officer),07/14/2019 Pneumococcal polysaccharide PPSV23 08/24/2017 RSV Vaccine (monovalent, adjuvanted) 05/21/2024 Tdap 01/29/2025,05/10/2012 Family History Medical History Relation Comments Breast cancer Niece Relation Status Comments Niece Social History Tobacco Use Types Packs/Day Years Used Date Smoking Tobacco: Never Smokeless Tobacco: Never Tobacco Cessation:Counseling Given: Not Answered Alcohol Use Standard Drinks/Week Comments Yes 2 [...] Orientation Straight 05/01/2023 1: 58 PM EDT Last Filed Vital Signs Vital Sign [place] Time Taken Comments Blood Pressure 141/89 02/10/2025 9:30 PM EDT Pulse 78 02/10/2025 9:30 PM EDT Temperature 36.3 C (97.4 F) 02/10/2025 9:46 PM EDT Respiratory Rate 18 02/10/2025 9:46 PM EDT Oxygen Saturation 93% 02/10/2025 9:30 PM EDT Inhaled Oxygen Concentration - - Weight 77.1 kg (170 lb) 02/10/2025 6:22 PM EDT Height 162.6 cm (5' 4 ) 02/10/2025 6:22 PM EDT Body Mass Index 29.18 02/10/2025 6:22 PM EDT Plan of Treatment Upcoming Encounters Date Type Department Care Team (Late st Contact Info) Description 05/21/2025 1:00 PM EDT Office Visit [facility] [address] [place] [address] Rogelio Torrez DO [address] [place] [address] [email or web address] 12/10/2025 10:40 AM EDT Appointment [facility] [address] [place] [address] Lulú Vizcaino MBBS [address] [place] [address] [email or web address] 12/10/2025 11:40 AM EDT Office Visit [facility] [address] [place] [address] Lulú Vizcaino [facility] [address] [place] [address] [email or web address] 03/03/2026 8:30 AM EDT Telemedicine [facility] Cardiac Arrhythmia Service [address], 5[address], [address] [place] [address] Angel Domínguez MD [address] [facility] [address] [place] [address] [email or web address] Health Maintenance Due Date Last Done Comments DEPRESSION SCREENING 1964 HEPATITIS C SCREENING 1970 COLOGUARD 1997 FIT TEST 1997 FOBT 1997 SIGMOIDOSCOPY 1997 VIRTUAL COLONOSCOPY 1997 ZOSTER VACCINES (1 of 2) 2002 COVID-19 VACCINE (2023- season) 2025 07/25/2024, 12/04/2023, 05/18/2023, Additional history exists BLOOD PRESSURE 08/12/2025 02/10/2025 MAMMOGRAM 12/31/2025 01/01/2024, 06/0 10/2021, 01/20/2022, Additional history exists CREATININE LEVEL 02/10/2026 02/10/2025, , 10/01/2023, Additional history exists POTASSIUM LEVEL 02/10/2026 02/10/2025, 11/18, 10/01/2023, Additional history exists COLONOSCOPY 05/06/2034 05/06/2024, 05/05/2024 COLORECTAL CANCER SCREENING 05/06/2034 Adult Td,Tdap Booster 01/29/2035 01/29/2025, 012 PNEUMOCOCCAL VACCINES (50+ years) Completed 07/14/2019, 08/24/2017 RSV VACCINE Completed 05/21/2024 OSTEOPOROSIS SCREENING INITIAL (ONE-TIME) Completed 11/24/2024 SMOKING STATUS SCREENING (Once After 26 Yrs) Completed 12/04/2024 HEPATITIS A VACCINES Aged Out No long er eligible based on patient's age to complete this topic HIB VACCINES Aged Out No longer eligi ble based on patient's age to complete this topic MENINGOCOCCAL VACCINES (ACWY) Aged Out No longer eligible based on patient's age to complete this topic MENINGOCOCCAL VACCINES (B) Aged Out N o longer eligible based on patient's age to complete this topic Medical Devices Implanted Type Area [employer] Surveillance Officer Device Identifier Shelf Expiration Date Model / Serial / Lot Prosthetic Joint Prosthetic Joint Bilatera l: Knee Procedures Procedure Name Priority Date/Time Associated Diagnosis Comments LFTS (HEPATIC PANEL) Routine 02/27/2025 3:07 PM EDT PVC (premature ventricular contraction) TROPONIN STAT 02/10/2025 7:33 PM EDT TROPONIN STAT 02/10/2025 6:42 PM EDT BASIC METABOLIC PANEL STAT 02/10/2025 6:42 PM EDT CBC AND DIFFERENTIAL STAT 02/10/2025 6:42 PM EDT XR CHEST PA AND LATERAL 2 VIEWS Routine 02/10/2025 6:38 PM EDT ECG 12-LEAD STAT 02/10/2025 6:11 PM EDT BD DXA AXIAL (SPINE) WITH HIP Routine 11/24/2024 2:28 PM EDT Osteoporosis with current pathological fracture, unspecified osteoporosis type, sequela ENDOSCOPY, COLON 05/06/2024 11:1 4 AM EDT BI MAMMOGRAM SCREENING WITH TOMOSYNTHESIS WITH CAD (BILATERAL) Routine 01/01/2024 11:41 AM EDT Breast screening from Last 3 Months or Most Recently Relevant to Health Maintenance Results * (ABNORMAL) LFTs (hepatic panel) (02/27/2025 3:07 PM EDT) Pathologist [facility] ALKALINE PHOSPHATASE 131(H) 39 - 117 U/L [facility] TOTAL BILIRUBIN 0.4 0.0 - 1.2 mg/dL [facility] DIRECT BILIRUBIN 0.1 0.0 - 0.2 mg/dL [facility] Bilirubin (Indirect) NOT CALCULATED 0 - 1.5 mg/dL [facility] AST 21 0 - 37 U/L [facility] ALT 11 0 - 40 U/L [facility] TOTAL PROTEIN 7.5 6.5 - 8.0 g/dL [facility] ALBUMIN 4.4 3.9 - 4.8 g/dL [facility] GLOBULIN 3.1 1 - 4.8 g/dL [facility] A/G Ratio 1.42 1.00 - 4.80 RATIO [facility] Blood 02/27/2025 3:07 PM EDT 02/27/2025 3:10 PM EDT us Angel Domínguez MD LAB BLOOD ORDERABLES Fin al Result [facility] [address] [place] [address] * (ABNORMAL) Troponin (02/10/2025 7:33 PM EDT) Only the most recent of2 resultswithin the time period is included. Pathologist [facility] Troponin-T, HS Gen5 14(H) 0 - 9 ng/L [facility] Blood 02/10/2025 7:33 PM EDT 02/10/2025 7:36 PM EDT us Brayden Jiang MD LAB BLOOD ORDERAB LES Final Result [facility] [address] [place] [address] * CBC and differential (02/10/2025 6:42 PM EDT) WBC 6.79 4.00 - 11.00 K/uL [facility] RBC 4.32 4.00 - 5.20 M/uL [facility] HGB 13.4 12.0 - 16.0 g/dL [facility] HCT 41.5 36.0 - 46.0 % [facility] PLT 180 150 - 450 K/uL [facility] MCV 96.1 80.0 - 100.0 [facility] MCH 31.0 27.0 - 31.0 pg [facility] MCHC 32.3 32.0 - 36.0 g/dL [facility] RDW 13.0 11.5 - 14.5 % [facility] MPV 11.3 8.4 - 12.0 [facility] NRBC 0.00 0.00 /100 WBCs [facility] ABSOLUTE NRBC 0.00 0.00 K/uL [facility] DIFF METHOD Auto [facility] NEUTS 55.5 48.0 - 76.0 % [facility] LYMPHS 34.8 18.0 - 41.0 % [facility] MONOS 7.5 4.0 - 11.0 % [facility] EOS 1.8 0.0 - 5.0 % [facility] BASOS 0.3 0.0 - 1.5 % [facility] Granulocytes, immature (%) 0.1 0.0 - 0.9 % [facility] ABSOLUTE NEUTS 3.77 1.92 - 7.60 K/uL [facility] ABSOLUTE LYMPHS 2.36 0.72 - 4.10 K/uL [facility] ABSOLUTE MONOS 0.51 0.16 - 1.10 K/uL [facility] ABSOLUTE EOS 0.12 0.00 - 0.50 K/uL [facility] ABSOLUTE BASOS 0.02 0.00 - 0.15 K/uL [facility] Granulocytes, immature 0.01 0.00 - 0.09 K/uL [facility] Blood 02/10/2025 6:42 PM EDT 02/10/2025 6:45 PM EDT us Anirudh Rivero MD LAB BLOOD ORDERABLES Final Resul t Performing Organization Address [facility] Co de Phone Number [address] [address] * (ABNORMAL) Basic metabolic panel (02/10/2025 6:42 PM EDT) SODIUM 143 133 - 146 mmol/L [facility] CHLORIDE 102 96 - 108 mmol/L [facility] POTASSIUM 4.4 3.3 - 5.1 mmol/L [facility] CO2 30 21 - 35 mmol/L [facility] BUN 18 6 - 19 mg/dL [facility] CREATININE 0.90 0.5 - 1.5 mg/dL [facility] GLUCOSE 103(H) 70 - 99 mg/dL [facility] CALCIUM 9.3 8.4 - 10.3 mg/dL [facility] EGFR 68 >59 mL/min/1.7 3m2 [facility] Comment:Estimated glomerular filtration rate calculated using the CKD-EPI refit equation. ANION GAP 15 10 - 20 mmol/L [facility] Blood 02/10/2025 6:42 PM EDT 02/10/2025 6:45 PM EDT us Anirudh Rivero MD LAB BLOOD ORDERABLES Final Resul t Performing Organization Address [facility]/ZIP Co de Phone Number [address] [address] * XR CHEST PA AND LATERAL 2 VIEWS (02/10/2025 6:38 PM EDT) Anatomical Region Laterality Modality Chest Computed Radiogr aphy 02/10/2025 7:01 PM EDT Impressions 02/10/2025 7:04 PM EDT 1. No acute cardiopulmonary abnormality. Linear bibasilar pulmonary opacities are likely atelectasis or scar. 2. Anterior vertebral body height loss in the thoracic spine is age indeterminate and may be acute or chronic. Correlation with symptoms is recommended. Narrative 02/10/2025 7:04 PM EDT Referring clinician's provided indication for this examination in [facility]: Pain TECHNIQUE: Chest frontal and lateral views. COMPARISON: Chest radiograph 12/11/2023 and relevant prior exams. FINDINGS: Linear opacities in the lung bases bilaterally, left more than right. Otherwise no focal consolidation, pulmonary edema, pleural effusion or pneumothorax. Heart and mediastinum are similar. Aortic atherosclerosis. No acute osseous abnormality. Prior vertebroplasty. There is anterior vertebral body height loss in the midthoracic spine that appears new and increased, age indeterminate. Procedure Note Murali Khan MD - 02/10/2025 Referring clinician's provided indication for this examination in [facility]:Pain TECHNIQUE: Chest frontal and lateral views. COMPARISON: Chest radiograph 12/11/2023 and relevant prior exams. FINDINGS: Linear opacities in the lung bases bilaterally, left more thanright. Otherwise no focal consolidation, pulmonary edema, pleural effusionor pneumothorax. Heart and mediastinum are similar. Aorticatherosclerosis. No acute osseous abnormality. Prior vertebroplasty. Thereis anterior vertebral body height loss in the midthoracic spine thatappears new and increased, age indeterminate. IMPRESSION: 1. No acute cardiopulmonary abnormality. Linear bibasilar pulmonaryopacities are likely atelectasis or scar. 2. Anterior vertebral body height loss in the thoracic spine is ageindeterminate and may be acute or chronic. Correlation with symptoms isrecommended. us Anirudh Rivero MD IMG XR CHEST Final Result * ECG 12-LEAD (02/10/2025 6:11 PM EDT) Ventricular Rate EKG/MIN 92 BPM [facility] Atrial Rate 92 BPM [facility] MO Interval 134 ms [facility] QRS Duration 76 ms [facility] QT Interval 346 ms [facility] QTC Interval 427 ms [facility] P [facility] 49 degrees [facility] R [facility] 3 degrees [facility] T [facility] 43 degrees [facility] 02/10/2025 6:11 PM EDT 02/11/2025 7:48 AM EDT Narrative [facility] - 02/11/2025 7:49 AM EDT Sinus rhythm with Premature atrial complexes Possible Left atrial enlargement Possible Anteroseptal infarct (cited on or before 21-Oct-2019) Abnormal ECG When compared with ECG of 04-Mar-2024 09:07, No significant change was found Confirmed by Harinder Mcwilliams ([id number]) on 02/11/2025 7:48:59 AM us Anirudh Rivero MD ECG ORDERABLES Final Result [facility] * BD DXA AXIAL (SPINE) WITH HIP (11/24/2024 2:28 PM EDT) Anatomical Region Laterality Modality Bone Density Bone Density 11/24/2024 2:16 PM EDT Impressions 11/25/2024 12:54 PM EDT Interpretation: Osteopenia. Narrative 11/25/2024 12:54 PM EDT Referred By: SHERICE PAULINO Indications: Osteoporosis Scanner: intelloCut A with serial# of [id number] located at [facility] Bone Density Scan (DXA) 11/24/24 Details [...] -2.5), or Osteoporosis (T-score <= -2.5). At [facility], T-scores are compared to peak bone [...] Janis Sahu MD - 11/25/2024 Referred By: SHERICE PAULINO Indications: Osteoporosis Scanner: HoloTruffls A with serial# of [id number] located at [facility] Bone Density Scan (DXA) 11/24/24 Details of [...] -2.5), or Osteoporosis (T-score <= -2.5). At [facility], T-scores are compared to peak bone [...] andprior bone density results. IMPRESSION: Interpretation: Osteopenia. us Sherice MILLER BD BONE DENSITY DEXA Final Result * ENDOSCOPY, COLON (05/06/2024 11:14 AM EDT) Narrative Transcriptions Michel Dailey MD - 05/06/2024 11:14 AM EDT [facility] Patient Name: Mary Delgado Attending MD:: MICHEL DAILEY MD, , Procedure Date: 05/06/2024 11:14 AM Date of : 1950 Age: 73 Admit Type: Outpatient Gender: Female Room: [place] [address] Referring MD: Sherice Paulino MD Exam Type: Colonoscopy Indications: Positive Cologuard test Medications: Monitored Anesthesia Care Procedure: Informed consent was obtained from the patientafter discussion of the indications, limitations, alternatives, benefits, and risks of the procedure. Risks specifically discussed include but are not limited to medication reactions, missed lesions, bleeding, perforation, or the need for emergent surgery. Throughout the procedure, the patient's blood pressure, pulse, end-tidal CO2, and oxygensaturations were monitored continuously. The Olympus adult variable colonoscope CF-[id number] #7 was introduced through the anus and advanced to the cecum, identified by appendiceal orifice andileocecal valve. The colonoscopy was performed withdifficulty due to significant looping. Successful completionof the procedure was aided by applying abdominal pressure. The patient tolerated the procedure well. The quality of the bowel preparation was excellent. The quality of the bowel preparation was evaluated using the BBPS ([place] Bowel Preparation Scale)with scores of: Right Colon = 3, Transverse Colon = 3and Left Colon = 3 (entire mucosa seen well with no residual staining, small fragments of stool oropaque liquid). The total BBPS score equals 9. Anatomical landmarks were photographed. Complications: No immediate complications. Estimated blood loss: Minimal. Findings: The perianal and digital rectal examinations were normal. A 3 mm polyp was found in the ascending colon. The polyp was sessile. The polyp was removed with acold snare. Resection and retrieval were complete. Scattered small and large-mouthed diverticula were found in the sigmoid colon. Internal hemorrhoids were found duringretroflexion. The hemorrhoids were mild. The exam was otherwise normal throughout theexamined colon. Impression: - One 3 mm polyp in the ascending colon, removedwith a cold snare. Resected and retrieved. - Mild diverticulosis in the sigmoid colon. - Internal hemorrhoids. Recommendation: - Discharge patient to home. - Await pathology results. MICHEL DAILEY MD, 05/06/2024 11:32:58 AM This report has been signed electronically. Number of Addenda: 0 Note Initiated On: 05/06/2024 11:14 AM Procedure Code(s): --- Professional --- 63801, Colonoscopy, flexible; with removal of tumor(s), polyp(s), or other lesion(s) by snare technique --- Technical --- 76002, Colonoscopy, flexible; with removal of tumor(s), polyp(s), or other lesion(s) by snare technique Diagnosis Code(s): --- Professional --- D12.2, Benign neoplasm of ascending colon K64.8, Other hemorrhoids R19.5, Other fecal abnormalities K57.30, Diverticulosis of large intestine without perforation or abscess without bleeding --- Technical --- D12.2, Benign neoplasm of ascending colon K64.8, Other hemorrhoids R19.5, Other fecal abnormalities K57.30, Diverticulosis of large intestine without perforation or abscess without bleeding CPT copyright 2021 [employer]. All rights reserved. The codes documented in this report are preliminary and upon medical sociologist reviewmay be revised to meet current compliance requirements. Procedure Date: 05/06/2024 11:14:[address] [place] [id number] Sherice Paulino MD GI PROCEDURE ORDERABLES Final Result * BI MAMMOGRAM SCREENING WITH TOMOSYNTHESIS WITH CAD (BILATERAL) (01/01/2024 11:41 AM EDT) Anatomical Region Laterality Modality Breast Left, Breast Right, Breast Bilateral Bila teral Mammography 01/02/2024 2:21 PM EDT Impressions 01/02/2024 2:21 PM EDT No mammographic evidence of malignancy in either breast. Annual screening mammography is recommended. BI-RADS 1 NEGATIVE The patient will be notified of the results and recommendations. Narrative 01/02/2024 2:21 PM EDT BI MAMMOGRAM SCREENING WITH TOMOSYNTHESIS WITH CAD (BILATERAL) Additional patient information: Screening. COMPARISON: Comparison is made with relevant prior imaging. Breast composition: There are scattered areas of fibroglandular density. FINDINGS: No abnormal masses, suspicious calcifications, or other significant findings are identified mammographically in either breast. Procedure Note Silvana Coles MD - 01/02/2024 BI MAMMOGRAM SCREENING WITH TOMOSYNTHESIS WITH CAD (BILATERAL) Additional patient information: Screening. COMPARISON: Comparison is made with relevant prior imaging. Breast composition: There are scattered areas of fibroglandular density. FINDINGS: No abnormal masses, suspicious calcifications, or other significantfindings are identified mammographically in either breast. IMPRESSION: No mammographic evidence of malignancy in either breast. Annual screening mammography is recommended. BI-RADS 1 NEGATIVE The patient will be notified of the results and recommendations. Sherice Paulino MD IMG MG EXAMS Final Result from Last 3 Months or Most Recently Relevant to Health Maintenance Insurance MEDICARE PART A & B [facility] MEDICARE SUPPLEMENT MEDICARE PART A & B [facility] [employer] MEDICARE SUPPLEMENT MEDICARE PART A & B [employer] MEDICARE SUPPLEMENT MEDICARE PART A & B MEDICARE SUPPLEMENT MEDICARE PART A & B [email or web address] EXTENSION MEDICARE SUPPLEMENT MEDICARE PART A & B [email or web address] EXTENSION MEDICARE SUPPLEMENT MEDICARE PART A & B [employer] MEDICARE SUPPLEMENT MEDICARE PART A & B [employer] MEDICARE SUPPLEMENT MEDICARE PART A & B [employer] [facility] EXTENSION MEDICARE SUPPLEMENT Advance Directives For more information, please contact: [phone] (9AM - 5PM Stephanie/[facility], Sunday-Sunday) * Full Code (Presumed) (Latest Code Status on File) Date Activated Date Inactivated Comments 10/22/2019 5:26 AM 10/24/2019 6:33 PM * Full Code (Presumed) Date Activated Date Inactivated Comments 10/22/2019 12:40 AM 10/22/2019 5:26 AM Care Teams Sql Etl Developer Relationship Specialty Start Date End Date Sherice Paulino MD [address] [place] [id number] PCP - General Internal Medicine 03/08/18 Joni Deleon MD [address] [place] [address] [place] [address] Pulmonary Disease 07/18/23 Mikal Jones MD [address] [facility] [address] [place] [address] Cardiology 07/23/23 Lulú Vizcaino MBBS [address] [place] [address] [address] [place] [address] [email or web address] Primary Oncologist Medical Oncology 11/29/23 Additional Source Comments The information contained in this document represents components of the legal health record. It is not the complete legal health record.[facility]
--- OUTSIDE RECORDS SUMMARY | 2025-04-14 15:47 | XMS_ITS | Encounter Summary ---
Author Organization [employer] Address [address] [facility] 7t [place] [address] Care Team Providers Care Hearing Impaired Itinerant Teacher Name Role Phone Pauline John MD Primary Care Provider Reason for Visit * Reason Onset Date Comments Medication Problem 05/25/2023 Encounter Details Date Type Department Care Team (Late st Contact Info) Description 05/25/2023 Telephone [facility] MED[facility] [address] [place] [address] Pauline John MD [address] [place] [address] Medication Problem Social History Tobacco Use Types [...] 10:30 AM EDT Office Visit [facility] OPTOMETRY [address] [place] [address] Parris Torres OD [address] [place] [address] 05/01/2025 10:00 AM EDT Office Visit [facility] MED[facility] [address] [place] [address] Pauline John MD [address] [place] [address] documented as of this encounter Visit Diagnoses Not on filedocumented in this encounter Care Teams Hearing Impaired Itinerant Teacher Relationship Specialty Start Date End Date Pauline John MD [address] [place] [address] PCP - General Internal Medicine 08/08/22 documented as of this encounter
[2025-04-14] MEDS: iohexoL 350 MG/ML 100 ML INFUS..BTL IV (16:13)
== END 2025-04-14 14:51 | disposition home or self-care (01) ==
LOC: HO.CT 14:50
PROVIDERS: Visit Provider Hospitalist
DX: I27.20 Pulmonary hypertension, unspecified (principal); I27.82 Chronic pulmonary embolism; R07.9 Chest pain, unspecified
CPT/HCPCS: 71275; 72020; Q9967

== ENCOUNTER → 2025-04-14 15:21 | Outpatient (BNV) | payer MEDICARE, OTHER, SELFPAY | PROVIDERS: PCP Internal Medicine; Visit Provider Radiology Diagnostic Radiology | DX: J81.1 Chronic pulmonary edema (principal) | CPT/HCPCS: 71275 ==

== ENCOUNTER 2025-05-04 08:19 | Outpatient (REF) | payer MEDICARE, OTHER, SELFPAY ==
--- OUTSIDE RECORDS SUMMARY | 2020-05-27 11:40 | XMS_ITS | Encounter Summary ---
Author Organization [facility] Address [address] [place] [address] [place] [address] Phone Care Team Providers Care Retail Department Manager Name Role Phone Sherice John MD Primary Care Provider Encounter Details Date Type Department Care Team (Late st Contact Info) Description 05/27/2020 11:40 AM EDT Hospital Encounter [facility] Ur[facility] Care 12 [place] [address] Guido Frankel PA [address] [place] [address] [email or web address] Social History Tobacco Use Types Packs/Day [...] 6:23 PM EDT Tami Jorge RN * [place] Suicide Severity Rating Scale (Screener/Recent Self-Report) Question [...] 1:00 PM EDT Office Visit [facility] [address] [place] [address] Rogelio Torrez, 22 [place] [address] 12/10/2025 10:40 AM EDT Appointment [facility] 30 [place] [address] Lulú Vizcaino, JORGE 30 [place] [address] [email or web address] 12/10/2025 11:40 AM EDT Office Visit [facility] [place] 30 [place] [address] Lulú Vizcaino MBBS 30 [place] [address] [email or web address] 03/03/2026 8:30 AM EDT Telemedicine [facility] [place]ia [place] 32 [facility], 5th Floor, [address] [place] [address] Angel Domínguez MD 55 [facility] [address] [place] [address] [email or web address] documented as of this encounter Procedures [...] Nondisplaced distal phalangeal fracture or fractures POS [id number] Narrative 05/27/2020 11:57 AM EDT 3 views. [...] Nondisplaced distal phalangeal fracture or fractures POS [id number] Guido MANZO IMG XR LOWER EXTREMITY Hailey [...] documented as of this encounter Care Teams Retail Department Manager Relationship Specialty Start Date End Date Sherice John MD [address] [place] [address] [email or web address] PCP - General Internal Medicine 03/08/18 documented as of this encounter Additional Source Comments The information contained in this document represents components of the legal health record. It is not the complete legal health record.[facility]
--- OUTSIDE RECORDS SUMMARY | 2020-06-01 10:45 | XMS_ITS | Encounter Summary ---
Author Organization [facility] Address [address] [place] [address] [place] [address] Phone Care Team Providers Care General Freight Agent Name Role Phone Sherice John MD Primary Care Provider Encounter Details Date Type Department Care Team (Late st Contact Info) Description 06/01/2020 10:45 AM EDT Hospital Encounter [facility] Urgent Care [address] [place] [address] [place] INSPECTOR HOT FORGINGS 12 [place] [address] [email or web address] Social History Tobacco Use Types Packs/Day Years [...] 6:23 PM EDT Tami Jorge RN * [place] Suicide Severity Rating Scale (Screener/Recent Self-Report) Question [...] 1:00 PM EDT Office Visit [facility] [address] [place] [address] Rogelio Torrez DO 22 [place] [address] 12/10/2025 10:40 AM EDT Appointment [facility] 30 [place] [address] Lulú Vizcaino, JORGE 30 [place] [address] [email or web address] 12/10/2025 11:40 AM EDT Office Visit [facility] [place] 30 [place] [address] Lulú Vizcaino, JORGE 30 [place] [address] [email or web address] 03/03/2026 8:30 AM EDT Telemedicine [facility] Service 32 [facility], 5th Floor, [address] [place] [address] Angel Domínguez MD 55 [facility] [address] [place] [address] [email or web address] documented as of this encounter [...] AM EDT No acute bony abnormality. POS [id number] Narrative 06/01/2020 11:24 AM EDT A total of 3 views reveal no fracture or other significant bony abnormality. No abnormal pleural-based density is apparent. Procedure Note Angel Garcia MD - 06/01/2020 A total of 3 views reveal no fracture or other significant bonyabnormality. No abnormal pleural-based density is apparent. IMPRESSION: No acute bony abnormality. POS [id number] us [place] INSPECTOR HOT FORGINGS IMG XR CHEST Final Resul t documented [...] documented as of this encounter Care Teams General Freight Agent Relationship Specialty Start Date End Date Sherice John MD [address] [place] [address] [email or web address] PCP - General Internal Medicine 03/08/18 documented as of this encounter Additional Source Comments The information contained in this document represents components of the legal health record. It is not the complete legal health record.[facility]
--- OUTSIDE RECORDS SUMMARY | 2021-04-29 14:22 | XMS_ITS | Encounter Summary ---
Author Organization [facility] Address [address] [place] [address] [place] [address] Phone Care Team Providers Care Soldering Machine Tender Name Role Phone Sherice John MD Primary Care Provider [phone] Encounter Details Date Type Department Care Team (Late st Contact Info) Description 04/29/2021 2:22 PM EDT Hospital Encounter [facility] [address] [place] [address] Francisca Baldwin PA 12 [place] [address] [email or web address] Social History Tobacco Use Types Packs/Day [...] 6:23 PM EDT Tami Jorge RN * [place] Suicide Severity Rating Scale (Screener/Recent Self-Report) Question [...] 1:00 PM EDT Office Visit [facility] [address] [place] [address] Rogelio Torrez, 22 [place] [address] 12/10/2025 10:40 AM EDT Appointment [facility] 30 [place] [address] Lulú Vizcaino, JORGE 30 [place] [address] [email or web address] 12/10/2025 11:40 AM EDT Office Visit [facility] [place] 30 [place] [address] Lulú Vizcaino, JORGE 30 [place] [address] [email or web address] 03/03/2026 8:30 AM EDT Telemedicine [facility] Cardiac Arrhythmia Service 32 [facility], 5th Floor, [address] [place] [address] Angel Domínguez MD 55 [facility] [address] [place] [address] [email or web address] documented as of this encounter Procedures [...] documented as of this encounter Care Teams Soldering Machine Tender Relationship Specialty Start Date End Date Sherice John MD [address] [place] [address] [email or web address] PCP - General Internal Medicine 03/08/18 documented as of this encounter Additional Source Comments The information contained in this document represents components of the legal health record. It is not the complete legal health record.[facility]
--- OUTSIDE RECORDS SUMMARY | 2021-12-21 12:40 | XMS_ITS | Encounter Summary ---
Author Organization [facility] Address [address] [place] [address] [place] [address] Phone Care Team Providers Care Retail Office Manager Name Role Phone Sherice John MD Primary Care Provider [phone] Encounter Details Date Type Department Care Team (Late st Contact Info) Description 12/21/2021 12:40 PM EDT Hospital Encounter [facility] Ur[facility] Care [address] [place] [address] [place] BRIDGE REPAIR CREW PERSON 12 [place] [address] [email or web address] Social History Tobacco Use Types Packs/Day Years [...] 6:23 PM EDT Tami Jorge RN * [place] Suicide Severity Rating Scale (Screener/Recent Self-Report) Question [...] 1:00 PM EDT Office Visit [facility] [address] [place] [address] Rogelio Torrez, 22 [place] [address] 12/10/2025 10:40 AM EDT Appointment [facility] 30 [place] [address] Lulú Vizcaino, JORGE 30 [place] [address] [email or web address] 12/10/2025 11:40 AM EDT Office Visit [facility] [place] 30 [place] [address] Lulú Vizcaino MBBS 30 [place] [address] [email or web address] 03/03/2026 8:30 AM EDT Telemedicine [facility] Cardiac Arrhythmia Service 32 [facility], 5th Floor, [address] [place] [address] Angel Domínguez MD 55 [facility] [address] [place] [address] [email or web address] documented as of this encounter Procedures [...] No acute osseous abnormality. [place] Sergio BRIDGE REPAIR CREW PERSON IMG XR LOWER EXTREMITY Hailey l Result [...] as of this encounter Care Teams Retail Office Manager Relationship Specialty Start Date End Date Sherice John MD [address] [place] [address] [email or web address] PCP - General Internal Medicine 03/08/18 documented as of this encounter Additional Source Comments The information contained in this document represents components of the legal health record. It is not the complete legal health record.[facility]
--- OUTSIDE RECORDS SUMMARY | 2022-10-12 12:54 | XMS_ITS | Encounter Summary ---
Author Organization [facility] Address [address] [place] [address] [place] [address] Phone Care Team Providers Care Tipple Boss Name Role Phone Sherice John MD Primary Care Provider [phone] Encounter Details Date Type Department Care Team (Late st Contact Info) Description 10/12/2022 11:54 AM EST Hospital Encounter [facility] 12 [place] [address] Imelda Anders FNP 12 [place] [address] [email or web address] Social History Tobacco Use [...] 6:23 PM EDT Tami Jorge RN * [place] Suicide Severity Rating Scale (Screener/Recent Self-Report) Question [...] PM EDT Office Visit [facility] 22 [place] [address] Rogelio Torrez DO 22 [place] [address] 12/10/2025 10:40 AM EDT Appointment [facility] 30 [place] [address] Lulú Vizcaino, JORGE 30 [place] [address] [email or web address] 12/10/2025 11:40 AM EDT Office Visit [facility] [place] 30 [place] [address] Lulú Vizcaino MBBS 30 [place] [address] [email or web address] 03/03/2026 8:30 AM EDT Telemedicine [facility] Cardiac Arrhythmia Service 32 [facility], 5th Floor, [address] [place] [address] Angel Domínguez MD 55 [facility] [address] [place] [address] [email or web address] documented as of this encounter Procedures [...] may represent evolving pneumonia oratelectasis. Imelda Anders CHILD CARE ASSOCIATE TEACHER IMG XR CHEST Final Resul t documented in this encounter Visit Diagnoses Not on filedocumented in this encounter Additional Health Concerns Infection Onset Date Last Indicated Resolved Time CoV-Risk 10/12/2022 10/12/2022 10/23/2022 1:22 AM EST CoV-Risk 10/25/2022 10/25/2022 11/05/2022 1:22 AM EDT CoV-Risk 11/24/2022 11/24/2022 12/05/2022 1:22 AM EDT documented as of this encounter Care Teams Tipple Boss Relationship Specialty Start Date End Date Sherice John MD [address] [place] [address] [email or web address] PCP - General Internal Medicine 03/08/18 documented as of this encounter Additional Source Comments The information contained in this document represents components of the legal health record. It is not the complete legal health record.[facility]
--- OUTSIDE RECORDS SUMMARY | 2022-10-25 14:17 | XMS_ITS | Encounter Summary ---
Author Organization [facility] Address [address] [facility] [address] [place] [address] Phone Care Team Providers Care Word Processor Name Role Phone Sherice John MD Primary Care Provider [phone] Encounter Details Date Type Department Care Team (Late st Contact Info) Description 10/25/2022 1:17 PM [facility] Hospital Encounter [facility] 12 [place] [address] Chaitanya Hall PA-C [address] [place] [address] [email or web address] Social History Tobacco Use Types Packs/Day Years [...] 6:23 PM EDT Tami Jorge RN * [place] Suicide Severity Rating Scale (Screener/Recent Self-Report) Question [...] PM EDT Office Visit [facility] 22 [place] [address] [place] [address] 12/10/2025 10:40 AM EDT Appointment [facility] 30 [place] [address] Lulú Vizcaino, JORGE 30 [place] [address] [email or web address] 12/10/2025 11:40 AM EDT Office Visit [facility] [place] 30 [place] [address] Lulú Vizcaino MBBS 30 [place] [address] [email or web address] 03/03/2026 8:30 AM EDT Telemedicine [facility] Cardiac Arrhythmia Service 32 [facility], 5th Floor, [address] [place] [address] Angel Domínguez MD 55 [facility] [address] [place] [address] [email or web address] documented as of this encounter [...] documented as of this encounter Care Teams Word Processor Relationship Specialty Start Date End Date Sherice John MD [address] [place] [address] [email or web address] PCP - General Internal Medicine 03/08/18 documented as of this encounter Additional Source Comments The information contained in this document represents components of the legal health record. It is not the complete legal health record.[facility]
--- OUTSIDE RECORDS SUMMARY | 2025-04-28 13:00 | XMS_ITS | Encounter Summary ---
Author Organization [facility] Address [address] [place] [address] [address] [place] [address] Phone Care Team Providers Care Software Engineer Sales Name Role Phone Sherice John MD Primary Care Provider [phone] Joni Deleon MD Unavailable Mikal Jones MD Unavailable [phone] Lulú Vizcaino [facility] Unavailable Encounter Details Date Type Department Care Team (Latest Contact Info) Description 04/28/2025 1:00 PM EDT - 04/28/2025 11:59 PM EDT Hospital Encounter [facility] Holter Lab [address] [facility], 5th Floor, [address] [place] [address] Angel Domínguez MD [address] [facility] [address] [place] [address] [email or web address] Arrived Discharge Disposition: Home or Self Care Social History Tobacco Use Types Packs/Day Years [...] PM EDT documented as of this encounter Medications at Time of Discharge acetaminophen (TYLENOL) 650 MG CR tablet Take 1,300 mg by mouth every 8 (eight) hours as needed for pain (specific location in comments). azelaic acid (FINACEA) 15 % gel APPLY A THIN LAYER TO AFFECTED AREAS DIRECTED. 10/25/2023 benzonatate (TESSALON) 200 MG capsule PRN 04/24/2024 calcium carbonate (OS-MILLA) 1,250 mg (500 mg elemental) tablet 1 tablet every morning. cholecalciferol (VITAMIN D3) 2,000 unit tablet Take 1 tablet by mouth. cyclobenzaprine (FLEXERIL) 10 MG tablet TAKE 1 TABLET (10 MG) BY MOUTH NEEDED IN THE MORNING , AT NOON, AND AT BEDTIME FOR MUSCLE SPASMS 01/16/2025 dilTIAZem (CARDIZEM CD) 120 MG 24 hr capsuleIndication s:Palpitations TAKE 1 CAPSULE BY MOUTH EVERY DAY 90 capsule 3 03/27/2025 ELIQUIS 5 mg tablet Take 1 tablet by mouth 2 (two) times a day. furosemide (LASIX) 40 MG tablet take 1 tablet by mouth 1 time each day. gabapentin (NEURONTIN) 400 MG capsule Take 1,200 mg by mouth nightly at bedtime. ID-denosumab <PROLIA> (90-798) 60 mg/mL subcutaneous injection Inject under the skin. JARDIANCE 10 mg tablet 09/05/2024 lansoprazole (PREVACID) 30 MG capsule Take 30 mg by mouth daily. levalbuterol (XOPENEX HFA) 45 mcg/actuation inhaler Inhale 1-2 puffs into the lungs every 4 (four) hours as needed for wheezing. levalbuterol (XOPENEX) 0.63 mg/3 mL nebulizer solution 03/19/2021 lisinopril (PRINIVIL,ZESTRIL ) 20 MG tabletIndications :takes 20mg BID Take 20 mg by mouth daily. Indications: takes 20mg BID 11/11/2021 metroNIDAZOLE (METROLOTION) 0.75 % Lotn 1 application.. mexiletine (MEXITIL) 150 MG capsuleIndication s:PVC (premature ventricular contraction) TAKE 1 CAPSULE BY MOUTH TWICE A DAY 180 capsule 1 03/27/2025 oxyCODONE 5 MG immediate release tablet Take 1 tablet (5 mg total) by mouth every 6 (six) hours as needed for pain (specific location in comments). Partial fill ok 8 tablet 02/10/2025 OXYGEN-AIR DELIVERY SYSTEMS MISC 2 L by Miscellaneous route daily as needed. On occasion RESTASIS 0.05 % suspension ADMINISTER 1 DROP INTO BOTH EYES 2 TIMES DAILY. 11/20/2022 rosuvastatin (CRESTOR) 20 MG tablet Take 20 mg by mouth. sertraline (ZOLOFT) 100 MG tablet Take 100 mg by mouth daily. Takes with 50 mg for 150 mg daily sertraline (ZOLOFT) 50 MG tablet Take 50 mg by mouth daily. 09/28/2022 SPIRIVA RESPIMAT 2.5 mcg/actuation mist for inhalation TAKE 2 PUFFS VIA INHALATION ONCE A DAY 11/29/2021 therapeutic multivitamin tablet Take 1 tablet by mouth daily. traZODone (DESYREL) 50 MG tablet TAKE 1 TABLET ORALLY BEDTIME NEEDED FOR SLEEP FOR 30 DAYS documented as of this encounter Plan of Treatment Upcoming Encounters Date Type Department Care Team (Late st Contact Info) Description 05/21/2025 1:00 PM EDT Office Visit [facility] [address] [place] [address] Rogelio Torrez DO [address] [place] [address] [email or web address] 12/10/2025 10:40 AM EDT Appointment [facility] [address] [place] [address] Lulú Vizcaino MBBS [address] [place] [address] [email or web address] 12/10/2025 11:40 AM EDT Office Visit [facility] [address] [place] [address] Lulú Vizcaino MBBS [address] [place] [address] [email or web address] 03/03/2026 8:30 AM EDT Telemedicine [facility] Cardiac Arrhythmia Service [address] [facility], 5th Floor, [address] [place] [address] Angel Domínguez MD [address] [facility] [address] [place] [address] [email or web address] Pending Results Name Type Priority Associated Diagnoses Date /Time Patch Monitor up to 7 Days Cardiac Monitors Routine PVC (premature ventricular contraction) Palpitations 04/27/2025 3:26 PM EDT Scheduled Orders Name Type Priority Associated Diagnoses Orde r Schedule Patch Monitor up to 7 Days Cardiac Monitors Routine PVC (premature ventricular contraction) Palpitations As Needed for 1 Occurrences starting 04/27/2025 until 04/27/2025 documented as of this encounter Visit Diagnoses Diagnosis PVC (premature ventricular contraction) Other premature beats Palpitations documented in this encounter Care Teams Software Engineer Sales Relationship Specialty Start Date End Date Sherice John MD [address] [place] [address] [email or web address] PCP - General Internal Medicine 03/08/18 Joni Deleon MD [address] [place] [address] [place] [address] Pulmonary Disease 07/18/23 Mikal Jones MD [address] [place] [address] [place] [id number] Cardiology 07/23/23 Lulú Vizcaino MBBS [address] [place] [address] [place] [id number] [email or web address] Primary Oncologist Medical Oncology 11/29/23 documented as of this encounter Additional Source Comments The information contained in this document represents components of the legal health record. It is not the complete legal health record.[facility]
--- OUTSIDE RECORDS SUMMARY | 2025-04-30 10:30 | XMS_ITS | Encounter Summary ---
Author Organization [employer] Address [address] [facility] 7t [place] [address] Care Team Providers Care Tool Designer Apprentice Name Role Phone Sherice John MD Primary Care Provider [phone] Reason for Visit * Reason Comments Follow-up Encounter Details Date Type Department Care Team (Late st Contact Info) Description 04/30/2025 10:30 AM EDT Office Visit [facility] OPT[facility] [address] [place] [address] Parris Torres, OD [address] [place], [place] [id number] Glaucoma suspect of both eyes (Primary Dx); Keratitis sicca, bilateral; Presbyopia of both eyes Social History Tobacco Use Types Packs/Day Years [...] degree (e.g., MA, MS, Luis Eduardo, MEd, MEDICAL ADMINISTRATIVE ASSISTANT, [employer]) 02/17/2025 Comments Unknown Sex and Gender Information Value Date Recorded Sex Assigned at Female 08/01/2022 12:40 PM EST Legal Sex Female 8:36 PM EDT Gender Identity Female 08/01/2022 12:40 PM EST Sexual Orientation Straight 10/04/2022 3: 13 PM EST documented as of this encounter Progress Notes * Parris Torres, OD - 04/30/2025 10:30 AM EDT Assessment/Plan Diagnoses and all orders for this visit: Glaucoma suspect of both eyes - OCT, Optic Nerve - OU - Both Eyes Low suspicion due to optic nerve appearance. OCT nerve continues to be normal and stable; intraocular pressure (IOP) normal. Monitor 1 year Keratitis sicca, bilateral Continue restasis BID both eyes (OU) and preservative-free artificial tears PRN Presbyopia of both eyes Spec Rx updated bifocal documented in this encounter Plan of Treatment Upcoming Encounters Date Type Department Care Team (Late st Contact Info) Description 06/15/2025 11:40 AM EDT Telemedicine [facility] MEDICAL [address] [place] [address] Sherice John MD [address] [place] [address] 08/04/2025 9:30 AM EST Office Visit [facility] MED[facility] [address] [place] [address] Sherice John MD [address] [place] [address] documented as of this encounter Procedures Procedure Name Priority Date/Time Associated Diagnosis Comments OCT, OPTIC NERVE - OU - BOTH EYES Routine 04/30/2025 Glaucoma suspect of both eyes documented in this encounter Results * OCT, Optic Nerve - OU - Both Eyes (04/30/2025) Impressions Parris Torres, OD - 04/30/2025 Right eye (OD): RNFL/GCC is normal; stable Left eye (OS): RNFL/GCC is normal; stable Parris Torres OD OPHTH TOMOGRAPHY Final Result documented in this encounter Visit Diagnoses Diagnosis Glaucoma suspect of both eyes- Primary Unspecified preglaucoma Keratitis sicca, bilateral Other forms of keratitis Presbyopia of both eyes documented in this encounter Care Teams Tool Designer Apprentice Relationship Specialty Start Date End Date Sherice John MD [address] [place] [address] PCP - General Internal Medicine 08/08/22 documented as of this encounter
--- OUTSIDE RECORDS SUMMARY | 2025-05-01 10:00 | XMS_ITS | Encounter Summary ---
Author Organization [employer] Address [address] [place] [address] [address] [place] [address] Care Team Providers Care Provider Engagement Executive Name Role Phone Sherice John MD Primary Care Provider [phone] Reason for Referral * Medications - Closed Specialty Diagnoses / Procedures Referred By Tyler yeung Referred To Contact Diagnoses Sciatica of right side Sherice John MD [address] [place] [address] Phone: tel: fax: Referral ID Status Reason Start Date Expiration Date Visits Re quested Visits Authorized [id number] Closed 1 1 * Consultation (Urgent) - Pending Review Specialty Diagnoses / Procedures Referred By Tyler yeung Referred To Contact Cardiothoracic Surgery Diagnoses Closed fracture of sternum with nonunion, unspecified portion of sternum, subsequent encounter Sherice John MD [address] [place] [address] Phone: tel: fax: Referral ID Status Reason Start Date Expiration Date Visits Requested Visits Authorized [id number] Pending Review Specialty Services Required 05/01/2025 05/01/2026 1 1 Reason for Visit * Reason Comments Follow-up Scheduled follow up and flu vax today Encounter Details Date Type Department Care Team (Latest Contact Info) Description 05/01/2025 10:00 AM EDT Office Visit [facility] [address] [place] [address] Sherice oJhn MD [address] [place] [address] Closed fracture of sternum with nonunion, unspecified portion of sternum, subsequent encounter (Primary Dx); Immunization due; Generalized anxiety disorder; Sciatica of right side; Osteoporosis, unspecified osteoporosis type, unspecified pathological fracture presence; Non-traumatic compression fracture of L4 lumbar vertebra with delayed healing, subsequent encounter; Moderate persistent asthma without complication [J45.40 (ICD-10-CM)]; Dilated cardiomyopathy (CMS/HCC); Pulmonary hypertension (CMS/HCC) Social History Tobacco Use Types Packs/Day [...] degree (e.g., MA, MS, Luis Eduardo, MEd, PROPERTY CLAIMS MANAGER, MARLIN) 02/17/2025 Comments Unknown Sex and Gender Information Value Date Recorded Sex Assigned at Female 08/01/2022 12:40 PM EST Legal Sex Female 8:36 PM EDT Gender Identity Female 08/01/2022 12:40 PM EST Sexual Orientation Straight 10/04/2022 3: 13 PM EST documented as of this encounter Last Filed Vital Signs Vital Sign Reading Time Taken Comments Blood Pressure 144/90 05/01/2025 10:06 AM EDT Pulse 76 05/01/2025 10:06 AM EDT Temperature 36.4 C (97.5 F) 05/01/2025 10:06 AM EDT Respiratory Rate 16 05/01/2025 10:06 AM EDT Oxygen Saturation 96% 05/01/2025 10:06 AM EDT 2 L Inhaled Oxygen Concentration - - Weight 77.1 kg (170 lb) 05/01/2025 10:06 AM EDT Height 162.6 cm (5' 4 ) 05/01/2025 10:06 AM EDT Body Mass Index 29.18 05/01/2025 10:06 AM EDT documented in this encounter Progress Notes * Sherice John MD - 05/01/2025 10:00 AM EDT Subjective Patient ID: Mary Delgado is a 74 y.o. female who presents for Follow-up (Scheduled follow up and flu vax today ). HPI --compression fracture: 3 vertebrae fractured!~ was on tramadol and a muscle relaxant without much help. Has seen ortho who ordered an MRI for further evaluation. Jut had her kyphpoplasty donee! Doing well post-op. Will have followup. Did have kyphoplasty of 2 of the fractures. Still just has severe sternal pain. Has been almost 2 months. Noting some stiffness when she gets up. --Hydronephrosis: found on a scan. No h/o frequent UTI's. Saw the neprhologist, they are going to do an ultraound to followup. No protein in uriarlysis done today. Does have h/o kidney stones. --pulmonary embolism. She is on eliquis for this. Seeing heme-onc and pulm Heme onc did recommenend long-term anticioag due to it being unprovoked. They incresased the eiliquis due to her diltiazem. Has appt in the spring to see territory sales professional again. Had recent CT Scan. --asthma/pulmonary hypertesnsion: Dr. Deleon sent her to [place] due to the pulmonary hypertension. 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 will also do the PFT's ,and an exercise stress had repeat right heart cath and stress test recently. 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 Failed sildenafil. On oxygen. Is able to do yardwork, etc, but needs the oxygen and needs to rest. Uses 2-3 liters butneeding to use more often. Has a spirometer now to keep lungs open. Continues to check oxygen at home and it's low in the evening, even at rest sometimes. We tried to get pulmonary rehab but they said she needed new PFT's. Did get new PFT's but doesn't know results. Did see pulmonary after her trip to the ED, he ordered another CT scan which showed multiple conpressoin fractures, some were new, and has a displaced sternum. --CHF: clinically. Improves with oxygen and diuretics; a bit of a mystery though. Saw an electrophysiiologist again also, wsa put on diltiazem due to an irregular heartbeat. Hthe CCB is helpign with her exertional SOB at least a little bit. Didn't tolerated torsemide so back on lasix. Is trying to keep hydrated and keep up electorlyges Just saw cardiology again, they started jardiance and are considering starting aldactone as the next step. She did get a cardiac MRI done that looked ok. Still just on just 40 mg lasix. Did have a weird episode a couple weeks ago, felt off and her oxygen was low in mid-80's and did not respond to her supplemental oxygen, turned it all the way up to 5 liters. Pulmonary said to go to the ED. Has an echo coming up that her pulmonoloigst ordred as he heard a murmur and the CT scan did show CAD and something going on with her mitral valve. --JACKIE: doing CPAP reuglarly --Pt feels like her anxiety has imrpoved now. She has weaned the sertraline some, which she did want to do as she wants to reduce that dose. Sstill not sleeping well. Continues to see psych prescriber. Wondering now if she may have ADD, feels like she's always had it but may be getting worse. Trouble conentrating, keeping mind on things. Moves from one thing to the next. [employer] form mailed. She forgot to fill out but then counsellor had her do it and it was defintiely positive for ADD. Did speak with her psych provider but holding off on meds. Does have her days when she's stressed and has alprazolam but rarely takes. Uses humor to maange thing;s . Continue to see counsellor. --osteoporosis: on prolia, new bone density ordered last visit. No result yet, hasn't got done yet.Would like to see an promotion specialist, prefers [facility]. Did have a fall recdnly and went to urgent care. She was trying to move her cat and the cat tried to climb her and it startled her. She dropped to the floor. The xrays initially did not show a fracture, Does have a displaced sternal fracture on CT scan recently so we are presuming this is related to the did take the prolia in January. And has promotion specialist upcoming in May. --hip: s/p hip replacment. That is doing ok. Review of Systems Objective Physical Exam Vitals reviewed. Constitutional: Appearance: Normal appearance. HENT: Head: Normocephalic and atraumatic. Nose: Nose normal. Eyes: Conjunctiva/sclera: Conjunctivae normal. Cardiovascular: Rate and Rhythm: Normal rate. Rhythm irregular. Pulses: Normal pulses. Heart sounds: Murmur (CHANDLER, 2/6) heard. Pulmonary: Effort: Pulmonary effort is normal. Breath sounds: Normal breath sounds. Skin: General: Skin is warm and dry. Neurological: General: No focal deficit present. Mental Status: She is alert and oriented to person, place, and time. Psychiatric: Mood and Affect: Mood normal. Behavior: Behavior normal. Thought Content: Thought content normal. Judgment: Judgment normal. Assessment/Plan Diagnoses and all orders for this visit: Closed fracture of sternum with nonunion, unspecified portion of sternum, subsequent encounter Comments: it is still causing a significant amount of pain and is displaced. Immunization due - Flu vaccine greater than or equal to 6 months old, preservative free IM Generalized anxiety disorder Sciatica of right side Osteoporosis, unspecified osteoporosis type, unspecified pathological fracture presence Non-traumatic compression fracture of L4 lumbar vertebra with delayed healing, subsequent encounter Moderate persistent asthma without complication [J45.40 (ICD-10-CM)] Dilated cardiomyopathy (CMS/HCC) Pulmonary hypertension (CMS/HCC) documented in this encounter Plan of Treatment Upcoming Encounters Date Type Department Care Team (Late st Contact Info) Description 06/15/2025 11:40 AM EDT Telemedicine [address] [address] Sherice John MD [address] [place] [address] 08/04/2025 9:30 AM EST Office Visit [address] [address] Sherice John MD [address] [place] [address] Scheduled Referrals Name Type Priority Associated Diagnoses Order Schedule Referral to Cardiothoracic Surgery Outpatient Referral Urgent Closed fracture of sternum with nonunion, unspecified portion of sternum, subsequent encounter Expected: 05/01/2025 (Approximate), Expires: 05/01/2026 documented as of this encounter Visit Diagnoses Diagnosis Closed fracture of sternum with nonunion, unspecified portion of sternum, subsequent encounter- Primary Immunization due Generalized anxiety disorder Sciatica of right side Osteoporosis, unspecified osteoporosis type, unspecified pathological fracture presence Non-traumatic compression fracture of L4 lumbar vertebra with delayed healing, subsequent encounter Moderate persistent asthma without complication [J45.40 (ICD-10-CM)] Dilated cardiomyopathy (CMS/HCC) Other primary cardiomyopathies Pulmonary hypertension (CMS/HCC) Other chronic pulmonary heart diseases documented in this encounter Care Teams Provider Engagement Executive Relationship Specialty Start Date End Date Sherice John MD [address] [place] [address] PCP - General Internal Medicine 08/08/22 documented as of this encounter
--- NOTE | ~2025-05-04 | US_ITS ---
EXAMINATION: US RETROPERITONEAL LIMITED (RENAL ONLY) CLINICAL INFORMATION: Unspecified hydronephrosis.. COMPARISON: None available. TECHNIQUE: Real-time ultrasound kidneys using grayscale technique. FINDINGS: RIGHT KIDNEY: 10 x 4 x 5 cm (SAG x AP x TRV). Normal echotexture. Normal renal cortical thickness. No hydronephrosis. No gross solid or cystic lesion detected. LEFT KIDNEY: 10 x 4 x 5 cm (SAG x AP x TRV). Normal echotexture. Normal renal cortical thickness. No hydronephrosis. No gross solid or cystic lesion. US/US renal BI IMPRESSION: No hydronephrosis. Normal exam.. Electronically signed by: Adams Virk MD 05/04/2025 09:04 AM EDT
--- OUTSIDE RECORDS SUMMARY | 2025-05-04 09:17 | XMS_ITS | Encounter Summary ---
Author Organization [facility] Address [address] [place] [address] Phone Care Team Providers Care Chamfering Machine Operator Name Role Phone Sherice John MD Primary Care Provider Deya Sotelo MD Unavailable Joni Deleon MD Unavailable Mikal Jones MD Unavailable Lulú Vizcaino Unavailable [phone] Encounter Details Date Type Department Care Team (Late st Contact Info) Description 10/01/2020 Procedure Pass [facility], [address] [address] Social History Tobacco Use Types Packs/Day Years [...] PM EDT Office Visit [facility] [address] [place] [address] Rogelio Torrez DO [address] [place] [address] [email or web address] 12/10/2025 10:40 AM EDT Appointment [facility] [address] [place] [address] Lulú Vizcaino MBBS [address] [place] [address] [email or web address] 12/10/2025 11:40 AM EDT Office Visit [facility] at [facility] [address] [place] [address] Lulú Vizcaino MBBS [address] [place] [address] [email or web address] 03/03/2026 8:30 AM EDT Telemedicine [facility] Cardiac Arrhythmia Service [address] [facility], 5th Floor, [address] [place] [address] Angel Domínguez MD [facility] [place] [address] [email or web address] documented as of this encounter Visit [...] documented as of this encounter Care Teams Chamfering Machine Operator Relationship Specialty Start Date End Date Sherice John MD [address] [place] [address] [email or web address] PCP - General Internal Medicine 03/08/18 Deya Sotelo MD [address] [place] [address] [email or web address] Primary Oncologist Hematology and Oncology 11/27/2211/18 Joni Deleon MD [address] [place] [address] [place] [address] Pulmonary Disease 07/18/23 Mikal Jones MD [address] [place] [address] [place] [address] Cardiology 07/23/23 Lulú Vizcaino MBBS 2 [facility] [address] [place] [address] [email or web address] Primary Oncologist Medical Oncology 11/29/23 documented as of this encounter Additional Source Comments The information contained in this document represents components of the legal health record. It is not the complete legal health record.[facility]
--- OUTSIDE RECORDS SUMMARY | 2025-05-04 09:17 | XMS_ITS | Encounter Summary ---
Author Organization [facility] Address [address] [place] [address] Phone Care Team Providers Care Band Teacher Name Role Phone Sherice John MD Primary Care Provider Deya Sotelo MD Unavailable Joni Deleon MD Unavailable Mikal Jones MD Unavailable [phone] Lul[facility] Vizcaino Unavailable [phone] Encounter Details Date Type Department Care Team (Late st Contact Info) Description 12/15/2020 Ancillary Orders [facility],Outside Imaging [address] [place], [place] [id number] System, Provider Not In, [facility] [address] [address] Social History Tobacco Use Types Packs/Day Years [...] PM EDT Office Visit [facility] [address] [place] [address] Rogelio Torrez DO [address] [place] [address] [email or web address] 12/10/2025 10:40 AM EDT Appointment [facility] [address] [place] [address] Lulú Vizcaino MBBS 30 [place] [address] [email or web address] 12/10/2025 11:40 AM EDT Office Visit [facility] [place] Miguel Angel [address] [place] [address] Lulú Vizcaino MBBS 30 [place] [address] [email or web address] 03/03/2026 8:30 AM EDT Telemedicine [facility] Cardiac Arrhythmia Service 32 [facility], 5th Floor, [address] [place] [address] Angel Domínguez MD [address] [facility] [place] [address] [email or web address] documented as of this [...] documented as of this encounter Care Teams Band Teacher Relationship Specialty Start Date End Date Sherice John MD [address] [place] [address] [email or web address] PCP - General Internal Medicine 03/08/18 Deya Sotelo MD [address] [address] [email or web address] Primary Oncologist Hematology and Oncology 11/27/2211/18 Joni Deleon MD [address] [place] [address] [place] [address] Pulmonary Disease 07/18/23 Mikal Jones MD 2 [facility] [address] [place] [address] Cardiology 07/23/23 Lul[facility] Vizcaino MBBS 2 [facility] [address] [place] [address] [email or web address] Primary Oncologist Medical Oncology 11/29/23 documented as of this encounter Additional Source Comments The information contained in this document represents components of the legal health record. It is not the complete legal health record.[facility]
--- OUTSIDE RECORDS SUMMARY | 2025-05-04 09:17 | XMS_ITS | Encounter Summary ---
Author Organization [employer] Address [address] [facility] 7t [place] [address] Care Team Providers Care Migratory Worker Name Role Phone Sherice John MD Primary Care Provider [phone] Encounter Details Date Type Department Care Team (Late st Contact Info) Description 04/08/2025 Orders Only [facility] MEDICAL [address] [place] [address] Provider, MD Kiersten Social History Tobacco Use [...] degree (e.g., DEVENDRA, MS, Luis Eduardo, MEd, PICKLE SORTER, MARLIN) 02/17/2025 Comments Unknown Sex and Gender [...] Info) Description 06/15/2025 11:40 AM EDT Telemedicine [address] [address] Sherice John MD [address] [place] [address] 08/04/2025 9:30 AM EST Office Visit [address] [address] Sherice John MD [address] [place] [address] documented as of this encounter Procedures Procedure [...] on filedocumented in this encounter Care Teams Migratory Worker Relationship Specialty Start Date End Date Sherice John MD [address] [place] [address] PCP - General Internal Medicine 08/08/22 documented as of this encounter
--- OUTSIDE RECORDS SUMMARY | 2025-05-04 09:17 | XMS_ITS | Encounter Summary ---
Author Organization [facility] Address [address] [place] [address] Phone Care Team Providers Care Operations Management Professionals Name Role Phone Sherice John MD Primary Care Provider Deya Sotelo MD Unavailable Joni Deleon MD Unavailable [phone] Mikal Jones MD Unavailable Lulú Vizcaino [facility] Unavailable [phone] Encounter Details Date Type Department Care Team (Late st Contact Info) Description 11/04/2020 Transcribe Orders Virtual Department 30 [place] [address] Mary Hamilton MD [address] [place] [address] Cough (Primary Dx) Social History Tobacco Use [...] PM EDT Office Visit [facility] 22 [place] [address] Rogelio Torrez DO 22 [place] [address] [email or web address] 12/10/2025 10:40 AM EDT Appointment [facility] [address] [place] [address] Lulú Vizcaino MBBS 30 [place] [address] [email or web address] 12/10/2025 11:40 AM EDT Office Visit [facility] Center at [facility] 30 [place] [address] Lulú Vizcaino MBBS 30 [place] [address] [email or web address] 03/03/2026 8:30 AM EDT Telemedicine [facility] Cardiac Arrhythmia Service 32 [facility], 5th Floor, [address] [place] [address] Angel Domínguez MD 55 [facility] [address] [place] [address] [email or web address] documented as of this encounter Results * COVID-19 PCR Order (11/05/2020 9:15 AM EDT) COVID Testing Status Specimen received in analyzing lab. Results should be available within 24 to 48 hrs. [facility] Symptomatic? YES [facility] 11/05/2020 9:15 AM EDT 11/05/2020 12:39 PM EDT Mary Hamilton MD BODY FLUIDS AND STOOLS ORDERABLES Final Result [address] [address] [facility] [address] [place] [address] documented in this encounter Visit Diagnoses Diagnosis [...] documented as of this encounter Care Teams Operations Management Professionals Relationship Specialty Start Date End Date Sherice John MD [address] [place] [address] [email or web address] PCP - General Internal Medicine 03/08/18 Deya Sotelo MD [facility] [address] [address] [email or web address] Primary Oncologist Hematology and Oncology 11/27/2211/18 Joni Deleon MD [address] [place] [address] [place] [address] Pulmonary Disease 07/18/23 Mikal Jones MD 2 [facility] [address] [place] [address] Cardiology 07/23/23 Lul[facility] Vizcaino MBBS [address] [place] [address] Center [address] [place] [address] [email or web address] Primary Oncologist Medical Oncology 11/29/23 documented as of this encounter Additional Source Comments The information contained in this document represents components of the legal health record. It is not the complete legal health record.[facility]
--- OUTSIDE RECORDS SUMMARY | 2025-05-04 09:18 | XMS_ITS | Encounter Summary ---
Author Organization [facility] Address [address] [place] [address] Phone Care Team Providers Care Drum Maker Name Role Phone Sherice John MD Primary Care Provider [phone] Deya Sotelo MD Unavailable Joni Deleon MD Unavailable Mikal Jones MD Unavailable Lulú Vizcaino [facility] Unavailable [phone] Encounter Details Date Type Department Care Team (Late st Contact Info) Description 10/01/2020 Ancillary Orders Virtual Department [address] [place] [address] Sherice John MD [address] [place] [address] [email or web address] Breast screening Social History Tobacco Use Types [...] PM EDT Office Visit [facility] [address] [place] [address] Rogelio Torrez DO 22 [place] [address] [email or web address] 12/10/2025 10:40 AM EDT Appointment [facility] [address] [place] [address] Lulú Vizcaino MBBS 30 [place] [address] [email or web address] 12/10/2025 11:40 AM EDT Office Visit [facility] Center at [facility] [address] [place] [address] Lulú Vizcaino MBBS [address] [place] [address] [email or web address] 03/03/2026 8:30 AM EDT Telemedicine [facility] Cardiac Arrhythmia Service [address] [facility], 5th Floor, [address] [place] [address] Angel Domínguez MD 55 [facility] [address] [place] [address] [email or web address] documented as of this encounter Results [...] documented as of this encounter Care Teams Drum Maker Relationship Specialty Start Date End Date Sherice John MD [address] [place] [address] [email or web address] PCP - General Internal Medicine 03/08/18 Deya Sotelo MD [address] [place] [address] [email or web address] Primary Oncologist Hematology and Oncology 11/27/2211/18 Joni Deleon MD [address] [place] [address] [place] [address] Pulmonary Disease 07/18/23 Mikal Jones MD 2 [facility] [address] [place] [address] Cardiology 07/23/23 Lulú Vizcaino MBBS 2 [facility] Center [address] [place] [address] [email or web address] Primary Oncologist Medical Oncology 11/29/23 documented as of this encounter Additional Source Comments The information contained in this document represents components of the legal health record. It is not the complete legal health record.[facility]
--- OUTSIDE RECORDS SUMMARY | 2025-05-04 09:18 | XMS_ITS | Encounter Summary ---
Author Organization [facility] Address [address] [place] [address] [address] [place] [address] Phone Care Team Providers Care Gum Maker Name Role Phone Sherice John MD Primary Care Provider Deya Sotelo MD Unavailable Joni Deleon MD Unavailable [phone] Mikal Jones MD Unavailable Lulú Vizcaino [facility] Unavailable Encounter Details Date Type Department Care Team (Late st Contact Info) Description 07/25/2023 Procedure Pass [facility] Holter Lab 32 [facility], 5th Floor, [address] [place] [address] Social History Tobacco Use Types Packs/Day Years [...] PM EDT Office Visit [facility] 22 [place] [address] Rogelio Torrez DO 22 [place] [address] [email or web address] [email or web address] 12/10/2025 10:40 AM EDT Appointment [facility] 30 [place] [address] Lulú Vizcaino MBBS 30 [place] [address] [email or web address] 12/10/2025 11:40 AM EDT Office [facility] 30 [place] [address] Lulú Vizcaino MBBS [address] [place] [address] [email or web address] 03/03/2026 8:30 AM EDT Telemedicine [facility] Cardiac Arrhythmia Service 32 [facility], 5th Floor, [address] [place] [address] Angel Domínguez MD 55 [facility] [address] [place] [address] [email or web address] [email or web address] documented as of this encounter Visit Diagnoses Not on filedocumented in this encounter Care Teams Gum Maker Relationship Specialty Start Date End Date Sherice John MD [address] [place] [address] [email or web address] PCP - General Internal Medicine 03/08/18 Deya Sotelo MD [address] [address] [email or web address] Primary Oncologist Hematology and Oncology 11/27/2211/18 Joni Deleon MD [address] [place] [address] [place] [address] Pulmonary Disease 07/18/23 Mikal Jones MD [address] [place] [address] [address] [place] [address] Cardiology 07/23/23 Lulú Vizcaino MBBS [address] [place] [address] Center [address] [place] [address] [email or web address] .[email or web address] Primary Oncologist Medical Oncology 11/29/23 documented as of this encounter Additional Source Comments The information contained in this document represents components of the legal health record. It is not the complete legal health record.[facility]
--- OUTSIDE RECORDS SUMMARY | 2025-05-04 09:18 | XMS_ITS | Encounter Summary ---
Author Organization [employer] Address 75 [facility] 7t [place] [address] Care Team Providers Care Industrial Trainer Name Role Phone Sherice John MD Primary Care Provider [phone] Encounter Details Date Type Department Care Team (Late st Contact Info) Description 09/23/2024 Orders Only [facility] 58 [place] [address] Sherice John MD 73 [place] [address] Social History Tobacco Use Types Packs/Day Years [...] Info) Description 06/15/2025 11:40 AM EDT Telemedicine [address] [address] Sherice John MD [address] [place] [address] 08/04/2025 9:30 AM EST Office Visit [address] [address] Sherice John MD [address] [place] [address] documented as of this encounter Procedures Procedure Name Priority Date/Time Associated Diagnosis Comments HM COLONOSCOPY Routine 05/06/2024 1:27 PM EDT documented in this encounter Results * Hm Colonoscopy (05/06/2024 1:27 PM EDT) Sherice John MD HEALTH MAINTENANCE Final Result documented in this encounter Visit Diagnoses Not on filedocumented in this encounter Care Teams Industrial Trainer Relationship Specialty Start Date End Date Sherice John MD [address] [place] [address] PCP - General Internal Medicine 08/08/22 documented as of this encounter
--- OUTSIDE RECORDS SUMMARY | 2025-05-04 09:18 | XMS_ITS | Encounter Summary ---
Author Organization [facility] Address [address] [place] [address] Phone Care Team Providers Care Wooden Furniture Polisher Name Role Phone Sherice John MD Primary Care Provider [phone] Deya Sotelo MD Unavailable Joni Deleon MD Unavailable Mikal Jones MD Unavailable Lulú Vizcaino [facility] Unavailable [phone] Encounter Details Date Type Department Care Team (Latest Contact Info) Description 06/18/2020 Transcribe Orders Virtual Department 30 [place] [address] Sherice John MD [address] [place] [address] [email or web address] Closed fracture of multiple ribs of right [...] PM EDT Office Visit [facility] 22 [place] [address] Rogelio Torrez DO 22 [place] [address] [email or web address] 12/10/2025 10:40 AM EDT Appointment [facility] 30 [place] [address] Lulú Vizcaino MBBS 30 [place] [address] [email or web address] 12/10/2025 11:40 AM EDT Office Visit [facility] 30 [place] [address] Lulú Vizcaino MBBS 30 [place] [address] [email or web address] 03/03/2026 8:30 AM EDT Telemedicine [facility] Cardiac Arrhythmia Service 32 [facility], 5th Floor, [address] [place] [address] Angel Domínguez MD 55 [facility] [address] [place] [address] [email or web address] documented as of this encounter [...] documented as of this encounter Care Teams Wooden Furniture Polisher Relationship Specialty Start Date End Date Sherice John MD [address] [place] [address] [email or web address] PCP - General Internal Medicine 03/08/18 Deya Sotelo MD [address] [place] [address] [email or web address] Primary Oncologist Hematology and Oncology 11/27/2211/18 Joni Deleon MD [address] [place] [address] [place] [address] Pulmonary Disease 07/18/23 Mikal Jones MD [address] [place] [address] [address] [place] [address] Cardiology 07/23/23 Lulú Vizcaino MBBS 2 [facility] Center [address] [place] [address] [email or web address] Primary Oncologist Medical Oncology 11/29/23 documented as of this encounter Additional Source Comments The information contained in this document represents components of the legal health record. It is not the complete legal health record.[facility]
--- OUTSIDE RECORDS SUMMARY | 2025-05-04 09:19 | XMS_ITS | Encounter Summary ---
Author Organization [facility] Address [address] [place] [address] [address] [place] [address] Phone Care Team Providers Care Sales Solutions Associate Name Role Phone Sherice John MD Primary Care Provider Deya Sotelo MD Unavailable Joni Deleon MD Unavailable Mikal Jones MD Unavailable Lulú Vizcaino [facility] Unavailable Encounter Details Date Type Department Care Team (Late st Contact Info) Description 06/07/2023 Procedure Pass [facility] Holter Lab 32 [facility], 5th Floor, [address] [place] [address] Social History Tobacco Use Types Packs/Day Years [...] PM EDT Office Visit [facility] 22 [place] [address] Rogelio Torrez DO 22 [place] [address] [email or web address] 12/10/2025 10:40 AM EDT Appointment [facility] 30 [place] [address] Lulú Vizcaino MBBS 30 [place] [address] [email or web address] 12/10/2025 11:40 AM EDT Office Visit [facility] at [facility] 30 [place] [address] Lulú Vizcaino MBBS [address] [place] [address] [email or web address] 03/03/2026 8:30 AM EDT Telemedicine [facility] Cardiac Arrhythmia Service 32 [facility], 5th Floor, [address] [place] [address] Angel Domínguez MD 55 [facility] [address] [place] [address] [email or web address] documented as of this encounter Visit Diagnoses Not on filedocumented in this encounter Care Teams Sales Solutions Associate Relationship Specialty Start Date End Date Sherice John MD [address] [place] [address] [email or web address] PCP - General Internal Medicine 03/08/18 Deya Sotelo MD [address] [address] [email or web address] Primary Oncologist Hematology and Oncology 11/27/2211/18 Joni Deleon MD [address] [place] [address] [place] [address] Pulmonary Disease 07/18/23 Mikal Jones MD [address] [place] [address] [address] [place] [address] Cardiology 07/23/23 Lulú Vizcaino MBBS [address] [place] [address] Center [address] [place] [address] [email or web address] .[email or web address] Primary Oncologist Medical Oncology 11/29/23 documented as of this encounter Additional Source Comments The information contained in this document represents components of the legal health record. It is not the complete legal health record.[facility]
--- OUTSIDE RECORDS SUMMARY | 2025-05-04 09:19 | XMS_ITS | Encounter Summary ---
Author Organization [facility] Address [address] [place] [address] Phone Care Team Providers Care Tube Filler Name Role Phone Sherice John MD Primary Care Provider Deya Sotelo MD Unavailable Joni Deleon MD Unavailable [phone] Mikal Jones MD Unavailable Lulú Vizcaino [facility] Unavailable [phone] Encounter Details Date Type Department Care Team (Latest Contact Info) Description 06/10/2020 Transcribe Orders Virtual Department 30 [place] [address] Sherice John MD [address] [place] [address] [email or web address] Rib injury (Primary Dx) Social History Tobacco [...] PM EDT Office Visit [facility] 22 [place] [address] Rogelio Torrez DO 22 [place] [address] [email or web address] 12/10/2025 10:40 AM EDT Appointment [facility] 30 [place] [address] Lluú Vizcaino MBBS 30 [place] [address] [email or web address] 12/10/2025 11:40 AM EDT Office Visit [facility] at [place] Miguel Angel 30 [place] [address] Lulú Vizcaino MBBS 30 [place] [address] [email or web address] 03/03/2026 8:30 AM EDT Telemedicine [facility] Cardiac Arrhythmia Service 32 [facility], 5th Floor, [address] [place] [address] Angel Domínguez MD 55 [facility] [address] [place] [address] [email or web address] documented as of this encounter [...] documented as of this encounter Care Teams Tube Filler Relationship Specialty Start Date End Date Sherice John MD [address] [place] [address] [email or web address] PCP - General Internal Medicine 03/08/18 Deya Sotelo MD [address] [place] [address] [email or web address] Primary Oncologist Hematology and Oncology 11/27/2211/18 Joni Deleon MD [address] [place] [address] [place] [address] Pulmonary Disease 07/18/23 Mikal Jones MD [address] [place] [address] Center [address] [place] [address] Cardiology 07/23/23 Lulú Vizcaino MBBS 2 [facility] Center [address] [place] [address] [email or web address] .[facility] Primary Oncologist Medical Oncology 11/29/23 documented as of this encounter Additional Source Comments The information contained in this document represents components of the legal health record. It is not the complete legal health record.[facility]
--- OUTSIDE RECORDS SUMMARY | 2025-05-04 09:19 | XMS_ITS | Encounter Summary ---
Author Organization [facility] Address [address] [place] [address] Phone Care Team Providers Care Annealing Furnace Operator Name Role Phone Sherice John MD Primary Care Provider Deya Sotelo MD Unavailable Joni Deleon MD Unavailable [phone] Mikal Jones MD Unavailable Lulú Vizcaino Unavailable [phone] Encounter Details Date Type Department Care Team (Late st Contact Info) Description 01/31/2023 Procedure Pass [facility], Ct Scan - [address] [address] Social History Tobacco Use Types Packs/Day Years [...] PM EDT Office Visit [facility] 22 [place] [address] Rogelio Torrez DO 22 [place] [address] [email or web address] 12/10/2025 10:40 AM EDT Appointment [facility] 30 [place] [address] Lulú Vizcaino MBBS 30 [place] [address] [email or web address] 12/10/2025 11:40 AM EDT Office Visit [facility] [place] 30 [place] [address] Lulú Vizcaino MBBS 30 [place] [address] [email or web address] 03/03/2026 8:30 AM EDT Telemedicine [facility] Cardiac Arrhythmia Service 32 [facility], 5th Floor, [address] [place] [address] Angel Domínguez MD 55 [facility] [address] [place] [address] [email or web address] documented as of this encounter Visit Diagnoses Not on filedocumented in this encounter Care Teams Annealing Furnace Operator Relationship Specialty Start Date End Date Sherice John MD [address] [place] [address] [email or web address] PCP - General Internal Medicine 03/08/18 Deya Sotelo MD [address] [address] [email or web address] Primary Oncologist Hematology and Oncology 11/27/2211/18 Joni Deleon MD [address] [place] [address] [place] [address] Pulmonary Disease 07/18/23 Mikal Jones MD [address] [place] [address] [place] [address] Cardiology 07/23/23 Lulú Vizcaino MBBS [address] [place] [address] Center [address] [place] [address] [email or web address] .[email or web address] Primary Oncologist Medical Oncology 11/29/23 documented as of this encounter Additional Source Comments The information contained in this document represents components of the legal health record. It is not the complete legal health record.[facility]
--- OUTSIDE RECORDS SUMMARY | 2025-05-04 09:20 | XMS_ITS | Encounter Summary ---
Author Organization [facility] Address [address] [place] [address] Phone Care Team Providers Care Integrated Circuit Layout Designer Name Role Phone Sherice John MD Primary Care Provider [phone] Deya Sotelo MD Unavailable Joni Deleon MD Unavailable Mikal Jones MD Unavailable Lulú Vizcaino [facility] Unavailable [phone] Encounter Details Date Type Department Care Team (Latest Contact Info) Description 11/04/2019 Transcribe Orders Virtual Department 30 [place] [address] Sherice John MD [address] [place] [address] [email or web address] Pneumonia due to infectious [...] PM EDT Office Visit [facility] 22 [place] [address] Rogelio Torrez DO 22 [place] [address] [email or web address] 12/10/2025 10:40 AM EDT Appointment [facility] 30 [place] [address] Lulú Vizcaino MBBS 30 [place] [address] [email or web address] 12/10/2025 11:40 AM EDT Office Visit [facility] at [facility] 30 [place] [address] Lulú Vizcaino MBBS 30 [place] [address] [email or web address] 03/03/2026 8:30 AM EDT Telemedicine [facility] Cardiac Arrhythmia Service 32 [facility], 5th Floor, [address] [place] [address] Angel Domínguez MD 55 [facility] [address] [place] [address] [email or web address] documented as of this [...] documented as of this encounter Care Teams Integrated Circuit Layout Designer Relationship Specialty Start Date End Date Sherice John MD [address] [place] [address] [email or web address] PCP - General Internal Medicine 03/08/18 Deya Sotelo MD [address] [place] [address] [email or web address] Primary Oncologist Hematology and Oncology 11/27/2211/18 Joni Deleon MD [address] [place] [address] [place] [address] Pulmonary Disease 07/18/23 Mikal Jones MD 2 [facility] Center [address] [place] [address] Cardiology 07/23/23 Lulú Vizcaino MBBS 2 [facility] Center [address] [place] [address] [email or web address] Primary Oncologist Medical Oncology 11/29/23 documented as of this encounter Additional Source Comments The information contained in this document represents components of the legal health record. It is not the complete legal health record.[facility]
--- OUTSIDE RECORDS SUMMARY | 2025-05-04 09:20 | XMS_ITS | Encounter Summary ---
Author Organization [facility] Address [address] [place] [address] Phone Care Team Providers Care Bleach Maker Name Role Phone Sherice John MD Primary Care Provider [phone] Deya Sotelo MD Unavailable Joni Deleon MD Unavailable Mikal Jones MD Unavailable [phone] Lulú Vizcaino Unavailable Encounter Details Date Type Department Care Team (Late st Contact Info) Description 11/29/2018 Procedure Pass [facility], [address] [address] Social History Tobacco Use Types Packs/Day Years [...] PM EDT Office Visit [facility] 22 [place] [address] Rogelio Torrez DO 22 [place] [address] [email or web address] 12/10/2025 10:40 AM EDT Appointment [facility] 30 [place] [address] Lulú Vizcaino, BERNABE 30 [place] [address] [email or web address] 12/10/2025 11:40 AM EDT Office [facility] 30 [place] [address] Lulú Vizcaino, [facility] 30 [place] [address] [email or web address] 03/03/2026 8:30 AM EDT Telemedicine [facility] Cardiac Arrhythmia Service 32 [facility], 5th Floor, [address] [place] [address] Angel Domínguez MD 55 [facility] [place] [address] [email or web address]@[email or web address] documented as of this encounter Visit [...] documented as of this encounter Care Teams Bleach Maker Relationship Specialty Start Date End Date Sherice John MD [address] [place] [address] [email or web address] PCP - General Internal Medicine 03/08/18 Deya Sotelo MD [address] [address] [email or web address] Primary Oncologist Hematology and Oncology 11/27/2211/18 Joni Deleon MD [address] [place] [address] [place] [address] Pulmonary Disease 07/18/23 Mikal Jones MD [address] [place] [address] [place] [address] Cardiology 07/23/23 Lulú Vizcaino MBBS [address] [place] [address] [place] [address] [email or web address] Primary Oncologist Medical Oncology 11/29/23 documented as of this encounter Additional Source Comments The information contained in this document represents components of the legal health record. It is not the complete legal health record.[facility]
--- OUTSIDE RECORDS SUMMARY | 2025-05-04 09:20 | XMS_ITS | Encounter Summary ---
Author Organization [facility] Address [address] [place] [address] Phone Care Team Providers Care Theatrical Rigger Name Role Phone Sherice John MD Primary Care Provider [phone] Joni Deleon MD Unavailable Mikal Jones MD Unavailable Lulú Vizcaino [facility] Unavailable [phone] Reason for Referral * MRI/CAT Scan - Closed Specialty Diagnoses / Procedures Referred By Tyler yeung Referred To Contact Radiology Diagnoses Syncope, unspecified syncope type Procedures MRI Brain Sherice John MD Phone: tel: fax: mailto:[email or web address] Referral ID Status Reason Start Date Expiration Date Visits Re quested Visits Authorized [id number] Closed 09/24/2024 09/24/2025 1 1 Encounter Details Date Type Department Care Team (Latest Contact Info) Description 09/24/2024 Transcribe Orders Virtual Department 30 [place] [address] Sherice John MD 73 [place] [address] Syncope, unspecified syncope type (Primary Dx) Social [...] PM EDT Office Visit [facility] 22 [place] [address] Rogelio Torrez DO 22 [place] [address] 12/10/2025 10:40 AM EDT Appointment [facility] 30 [place] [address] Lulú Vizcaino, JORGE 30 [place] [address] [email or web address] 12/10/2025 11:40 AM EDT Office Visit [facility] [place] 30 [place] [address] Lulú Vizcaino MBBS 30 [place] [address] [email or web address] 03/03/2026 8:30 AM EDT Telemedicine [facility] Cardiac Arrhythmia Service 32 [facility], 5th Floor, [address] [place] [address] Angel Domínguez MD 55 [facility] [address] [place] [address] [email or web address] documented as of this [...] clinician's provided indication for this examination in [facility]:Outside Radiology Order; Syncope, unspecified syncope [...] type documented in this encounter Care Teams Theatrical Rigger Relationship Specialty Start Date End Date Sherice John MD [address] [place] [address] [email or web address] PCP - General Internal Medicine 03/08/18 Joni Deleon MD [address] [place] [address] [place] [address] Pulmonary Disease 07/18/23 Mikal Jones MD [address] [place] [address] [place] [address] Cardiology 07/23/23 Lulú Vizcaino MBBS [address] [place] [address] [address] [place] [address] [email or web address] Primary Oncologist Medical Oncology 11/29/23 documented as of this encounter Additional Source Comments The information contained in this document represents components of the legal health record. It is not the complete legal health record.[facility]
--- OUTSIDE RECORDS SUMMARY | 2025-05-04 09:21 | XMS_ITS | Encounter Summary ---
Author Organization [facility] Address [address] [place] [address] [place] [address] Phone Care Team Providers Care Haul Driver Name Role Phone Sherice John MD Primary Care Provider Joni Deleon MD Unavailable [phone] Mikal Jones MD Unavailable Lulú Vizcaino MB Unavailable Encounter Details Date Type Department Care Team (Late st Contact Info) Description 05/06/2024 Procedure Pass [facility] Endoscopy Admitting Dept Virtual Department 30 [place] [address] Social History Tobacco Use Types Packs/Day Years [...] PM EDT Office Visit [facility] 22 [place] [address] Rogelio Torrez DO 22 [place] [address] 12/10/2025 10:40 AM EDT Appointment [facility] 30 [place] [address] Lulú Vizcaino MBBS 30 [place] [address] [email or web address] 12/10/2025 11:40 AM EDT Office Visit [facility] 30 [place] [address] Lulú Vizcaino MBBS 30 [place] [address] [email or web address] 03/03/2026 8:30 AM EDT Telemedicine [facility] Cardiac Arrhythmia Service 32 [facility], 5th Floor, [address] [place] [address] Angel Domínguez MD 55 [facility] [address] [place] [address] [email or web address] documented as of this encounter Visit Diagnoses Not on filedocumented in this encounter Care Teams Haul Driver Relationship Specialty Start Date End Date Sherice John MD 73 [place] [address] [email or web address] PCP - General Internal Medicine 03/08/18 Joni Deleon MD [address] [place] [address] [place] [address] Pulmonary Disease 07/18/23 Mikal Jones MD [address] [facility] [address] [place] [address] Cardiology 07/23/23 Lulú Vizcaino MBBS [address] [facility] [address] [place] [address] [email or web address] Primary Oncologist Medical Oncology 11/29/23 documented as of this encounter Additional Source Comments The information contained in this document represents components of the legal health record. It is not the complete legal health record.[facility]
--- OUTSIDE RECORDS SUMMARY | 2025-05-04 09:21 | XMS_ITS | Encounter Summary ---
Author Organization [facility] Address [address] [place] [address] Phone Care Team Providers Care Stencil Printer Name Role Phone Sherice John MD Primary Care Provider Deya Sotelo MD Unavailable Joni Deleon MD Unavailable Mikal Jones MD Unavailable Lulú Vizcaino Unavailable [phone] Encounter Details Date Type Department Care Team (Late st Contact Info) Description 11/29/2018 Procedure Pass [facility], [address] [address] Social History Tobacco Use Types Packs/Day Years [...] PM EDT Office Visit [facility] [address] [place] [address] Rogelio Torrez DO 22 [place] [address] [email or web address] 12/10/2025 10:40 AM EDT Appointment [facility] 30 [place] [address] Lulú Vizcaino, BERNABE 30 [place] [address] [email or web address] 12/10/2025 11:40 AM EDT Office Visit [facility] 30 [place] [address] Lulú Vizcaino, JD [facility] 30 [place] [address] [email or web address] 03/03/2026 8:30 AM EDT Telemedicine [facility] Cardiac Arrhythmia Service 32 [facility], 5th Floor, [address] [place] [address] Angel Domínguez MD [address] [facility] [place] [address] [email or web address] documented as of this encounter Visit [...] documented as of this encounter Care Teams Stencil Printer Relationship Specialty Start Date End Date Sherice John MD [address] [place] [address] [email or web address] PCP - General Internal Medicine 03/08/18 Deya Sotelo MD [address] [address] [email or web address] Primary Oncologist Hematology and Oncology 11/27/2211/18 Joni Deleon MD [address] [place] [address] [place] [address] Pulmonary Disease 07/18/23 Mikal Jones MD [address] [place] [address] [place] [address] Cardiology 07/23/23 Lulú Vizcaino MBBS [address] [place] [address] [place] [address] [email or web address] Primary Oncologist Medical Oncology 11/29/23 documented as of this encounter Additional Source Comments The information contained in this document represents components of the legal health record. It is not the complete legal health record.[facility]
--- OUTSIDE RECORDS SUMMARY | 2025-05-04 09:21 | XMS_ITS | Encounter Summary ---
Author Organization [facility] Address [address] [place] [address] [place] [address] Phone Care Team Providers Care Drop Forge Hand Name Role Phone Pauline Paulino MD Primary Care Provider [phone] Joni Deleon MD Unavailable [phone] Mikal Jones MD Unavailable [phone] Lulú Vizcaino [facility] Unavailable [phone] Encounter Details Date Type Department Care Team (Latest Contact Info) Description 06/20/2024 Transcribe Orders Virtual Department 30 [place] [address] Pauline Paulino MD 73 [place] [address] Osteoporosis with current pathological fracture, unspecified osteoporosis [...] PM EDT Office Visit [facility] [address] [place] [address] Rogelio Torrez DO [address] [place] [address] 12/10/2025 10:40 AM EDT Appointment [facility] [address] [place] [address] Lulú Vizcaino MBBS [address] [place] [address] [email or web address] 12/10/2025 11:40 AM EDT Office Visit [facility] 30 [place] [address] Lulú Vizcaino MBBS [address] [place] [address] [email or web address] 03/03/2026 8:30 AM EDT Telemedicine [facility] Cardiac Arrhythmia Service 32 [facility], 5th Floor, [address] [place] [address] Angel Domínguez MD 55 [facility] [address] [place] [address] [email or web address] documented as of this encounter Results * BD DXA AXIAL (SPINE) WITH HIP (11/24/2024 2:28 PM EDT) Anatomical Region Laterality Modality Bone Density Bone Density 11/24/2024 2:16 PM EDT Impressions 11/25/2024 12:54 PM EDT Interpretation: Osteopenia. Narrative 11/25/2024 12:54 PM EDT Referred By: PAULINE PAULINO Indications: Osteoporosis Scanner: [employer] A with serial# of [id number] located at [facility] Bone Density Scan (DXA) 11/24/24 Details [...] -2.5), or Osteoporosis (T-score <= -2.5). At [facility], T-scores are compared to peak bone [...] Referred By: PAULINE PAULINO Indications: Osteoporosis Scanner: [employer] A with serial# of [id number] located at [facility] Bone Density Scan (DXA) 11/24/24 Details [...] -2.5), or Osteoporosis (T-score <= -2.5). At [facility], T-scores are compared to peak bone [...] sequela documented in this encounter Care Teams Drop Forge Hand Relationship Specialty Start Date End Date Pauline Paulino MD [address] [place] [address] [email or web address] PCP - General Internal Medicine 03/08/18 Joni Deleon MD [address] [place] [address] [place] [address] Pulmonary Disease 07/18/23 Mikal Jones MD [address] [place] [address] [place] [address] Cardiology 07/23/23 Lulú Vizcaino MBBS [address] [place] [address] [address] [place] [address] [email or web address] Primary Oncologist Medical Oncology 11/29/23 documented as of this encounter Additional Source Comments The information contained in this document represents components of the legal health record. It is not the complete legal health record.[facility]
--- OUTSIDE RECORDS SUMMARY | 2025-05-04 09:21 | XMS_ITS | Encounter Summary ---
Author Organization [facility] Address [address] [place] [address] [place] [address] Phone Care Team Providers Care Renewal Specialist Name Role Phone Sherice John MD Primary Care Provider [phone] Joni Deleon MD Unavailable Mikal Jones MD Unavailable Lulú Vizcaino MB Unavailable [phone] Encounter Details Date Type Department Care Team (Late st Contact Info) Description 05/05/2024 Procedure Pass [facility] Endoscopy Admitting Dept Virtual Department 30 [place] [address] Social History Tobacco Use Types Packs/Day Years [...] PM EDT Office Visit [facility] 22 [place] [address] Rogelio Torrez DO 22 [place] [address] 12/10/2025 10:40 AM EDT Appointment [facility] 30 [place] [address] Lulú Vizcaino MBBS 30 [place] [address] [email or web address] 12/10/2025 11:40 AM EDT Office Visit [facility] [place] 30 [place] [address] Lulú Vizcaino MBBS 30 [place] [address] [email or web address] 03/03/2026 8:30 AM EDT Telemedicine [facility] Cardiac Arrhythmia Service 32 [facility], 5th Floor, [address] [place] [address] Angel Domínguez MD 55 [facility] [address] [place] [address] [email or web address] documented as of this encounter Visit Diagnoses Not on filedocumented in this encounter Care Teams Renewal Specialist Relationship Specialty Start Date End Date Sherice John MD 73 [place] [address] [email or web address] PCP - General Internal Medicine 03/08/18 Joni Deleon MD [address] [place] [address] [place] [address] Pulmonary Disease 07/18/23 Mikal Jones MD 2 [facility] [address] [place] [address] Cardiology 07/23/23 Lulú Vizcaino MBBS 2 [facility] [address] [place] [address] [email or web address] Primary Oncologist Medical Oncology 11/29/23 documented as of this encounter Additional Source Comments The information contained in this document represents components of the legal health record. It is not the complete legal health record.[facility]
--- OUTSIDE RECORDS SUMMARY | 2025-05-04 09:21 | XMS_ITS | Encounter Summary ---
Author Organization [employer] Address [address] [facility] 7t [place] [address] Care Team Providers Care Community Board Member Name Role Phone Sherice John MD Primary Care Provider [phone] Encounter Details Date Type Department Care Team (Late st Contact Info) Description 02/24/2025 Orders Only [place] [facility] [address] [place] [address] Sherice John MD [address] [place] [address] Social History Tobacco Use Types Packs/Day Years [...] degree (e.g., DEVENDRA, MS, Luis Eduardo, MEd, TAXATION ACCOUNTANT, [employer]) 02/17/2025 Comments Unknown Sex and Gender [...] Info) Description 06/15/2025 11:40 AM EDT Telemedicine [address] [address] Sherice John MD [address] [place] [address] 08/04/2025 9:30 AM EST Office Visit [address] [address] Sherice John MD [address] [place] [address] documented as of this encounter Procedures Procedure [...] on filedocumented in this encounter Care Teams Community Board Member Relationship Specialty Start Date End Date Sherice John MD [address] [place] [address] PCP - General Internal Medicine 08/08/22 documented as of this encounter
--- OUTSIDE RECORDS SUMMARY | 2025-05-04 09:21 | XMS_ITS | Clinical Summary ---
Author Organization [employer] Address [address] [facility] 7t [place] [address] Care Team Providers Care Substation Electrician Name Role Phone Sherice John MD Primary Care Provider [phone] Allergies Active Allergy Reactions Criticality Noted Date [...] day. Active metroNIDAZOLE (Metrocream) 0.75 % cream 022 Active levalbuterol (Xopenex) 0.63 MG/3ML nebulizer solution Take 3 mL by nebulization every 4 (four) hours if needed for wheezing. 72 mL 2 023 Active sertraline (Zoloft) 100 MG tablet [...] by mouth Once per day. Per cardiology 024 Active oxygen (O2) gas by Other route. Active Cholecalciferol (VITAMIN D3 PO) Take by mouth. Active azelaic acid (Finacea) 15 % gel Active ALPRAZolam (Xanax) 0.5 MG tablet Active mexiletine (Mexitil) 150 MG capsule Take 150 mg by mouth in the morning and 150 mg in the evening. Active sertraline (Zoloft) 50 MG tablet Active tiotropium (Spiriva Respimat) 2.5 MCG/ACT inhalerIndicati ons:Moderate persistent asthma without complication INHALE 2 PUFFS IN THE MORNING 4 each 11 024 2024 Active benzonatate (Tessalon) 200 MG capsule Active traZODone (Desyrel) 50 MG tablet Take 50 mg by mouth if needed at bedtime for sleep. Active Restasis 0.05 % ophthalmic emulsionIndicat ions:Keratitis sicca, bilateral ADMINISTER 1 DROP INTO BOTH EYES 2 TIMES DAILY. 180 mL 3 Active empagliflozin (Jardiance) 10 MG Take 10 [...] time for 1 dose. 1 mL Active fluticasone (Flonase) 50 MCG/ACT nasal spray Administer 2 sprays into each nostril Once per day. Active Suzetrigine (Journavx) 50 MG tablet TAKE 1 TABLET BY MOUTH TWICE A DAY FOR 28 DAYS Active rosuvastatin (Crestor) 20 MG tabletIndicatio ns:High cholesterol TAKE 1 TABLET BY MOUTH EVERY DAY 90 tablet 3 Active lisinopril 20 MG tabletIndicatio ns:Essential hypertension Take 1 tablet (20 mg) by mouth Once per day. 90 tablet 3 025 2025 Active Ventolin HFA 108 (90 Base) MCG/ACT inhaler 2 PUFF INHALED 4 TIMES A DAY NEEDED FOR SHORTNESS OF BREATH OR WHEEZING FOR 30 DAYS 025 Active furosemide (Lasix) 20 MG tablet TAKE 2 TABLETS ORALLY DAILY FOR EDEMA FOR 30 DAYS 025 Active guaiFENesin-cod eine (Robitussin-AC) 100-10 MG/5ML syrup TAKE 10 ML BY MOUTH EVERY 6 HOURS NEEDED FOR COUGH FOR 10 DAYS 025 Active pregabalin (Lyrica) 25 MG capsuleIndicati ons:Sciatica of right side Take 1 capsule (25 mg) by mouth 3 times daily. 90 capsule 5 025 2025 Active levalbuterol (Xopenex) 45 MCG/ACT inhalerIndicati ons:Moderate persistent asthma without complication Inhale 1 puff every 4 (four) hours if needed for wheezing. 15 g 1 025 2025 Active levalbuterol (Xopenex) 45 MCG/ACT inhaler Inhale 1 puff every 4 (four) hours if needed for wheezing. 15 g 1 023 2024 Discontinued(D uplicate order (will not trigger notification to Pharmacy)) gabapentin (Neurontin) 400 MG capsuleIndicati ons:Primary insomnia Take 3 capsules (1,200 mg) by mouth at bedtime. 270 capsule 3 024 2024 Discontinued cyclobenzaprine (Flexeril) 10 MG tabletIndicatio ns:Acute bilateral low back pain without sciatica TAKE 1 TABLET (10 MG) BY MOUTH NEEDED IN THE MORNING , AT NOON, AND AT BEDTIME FOR MUSCLE SPASMS 30 tablet 025 2024 Discontinued gabapentin (Neurontin) 400 MG capsuleIndicati ons:Primary insomnia TAKE 3 CAPSULES (1,200 MG) BY MOUTH AT BEDTIME. 270 capsule 3 025 2024 Discontinued Active Problems Problem Noted Date [...] will f/up with both her pulm and compensator , continue daily weights and report if greater than 2 lb wt gain day to day or 5 lbs in one week. Self monitor closely for any new open wounds or bleeding as she is taking Eliquis 5 mg PO BID d/t hx PE and pulm HTN, ?cardiomyopathy, ? CHF. Recommended schedule her pulm and compensator followup visits soon and agrees to do [...] EDT): Encouraged to keep current with her lead blender and compensator given her multple complex pulm and cardio health diagnoses and history. Savannah's bp somewhat elevated and will self monitor bp/pulse and 02 sat daily and make/keep PCP, pulm and compensator followup visits and agrees to consult with reg sales operations associate for dietary advice to help with her [...] on the results of her echocardiogram from [facility] and discussed with her if there are actionable findings. I did encourage her to follow-up with her new lead blender to determine if there are further investigations or treatment warranted for pulmonary hypertension. 11/22/18 CAIT: Mild Assessment & Plan (06/25/2024 8:30 PM EST): Followed by cardiology and also pulm HTN specialist in [place] Dr. Tangela Deleon. See HPI, encouraged to f/up both with her compensator who is prescribing her torsemide and with [...] Encounters Date Type Department Care Team Description 05/04/[address] [facility] MEDICAL [address] [place] [address] Sherice John MD Prior Authorization (pregabalin) 05/02/2025 Orders Only [facility] Information [address] [address] Pcp, [place] Unassigned 05/01/2025 10:00 AM EDT Office Visit [address] [address] Sherice John MD Closed fracture of sternum with nonunion, unspecified portion of sternum, subsequent encounter (Primary Dx); Immunization due; Generalized anxiety disorder; Sciatica of right side; Osteoporosis, unspecified osteoporosis type, unspecified pathological fracture presence; Non-traumatic compression fracture of L4 lumbar vertebra with delayed healing, subsequent encounter; Moderate persistent asthma without complication [J45.40 (ICD-10-CM)]; Dilated cardiomyopathy (CMS/HCC); Pulmonary hypertension (CMS/HCC) 05/01/2025 Travel 04/30/2025 10:30 AM EDT Office Visit [facility] OPTOMETRY [address] [place] [address] Parris Torres, OD Glaucoma suspect of both eyes (Primary Dx); Keratitis sicca, bilateral; Presbyopia of both eyes 04/24/2025 Travel 04/24/[address] [address] Sherice John MD Primary insomnia 04/15/2025 Orders Only [facility] Information [address] [address] Sherice John MD 04/08/[address] [address] Sherice John MD ED visit 04/08/2025 Orders Only [address] [address] ProviderKiersten MD 03/16/[address] [facility] MEDICAL [address] [place] [address] Sherice John MD tick bite on left shoulder 03/11/[address] [address] Sherice John MD Essential hypertension 03/06/[address] [address] Sherice John MD High cholesterol 02/24/2025 Orders Only [place] [facility] [address] [place] [address] Sheriec John MD 02/17/2025 11:00 AM EDT Office Visit [address] [address] Helga Ramirez CNP Encounter for examination following treatment at hospital (Primary Dx); Osteopenia of lumbar spine 02/17/[address] [address] Helga Ramirez CNP Advice Only 02/16/2025 Travel 02/13/[address] [address] Sherice John MD fax from [facility] re: CS meds 02/12/[address] [address] Sherice John MD request RX for pain 02/11/[address] [address] Sherice John MD Hospital Follow-up; Care Coordination; Chest Pain; Muscle Pain 02/10/[address] [address] Sherice John MD hospital discharge, obtain hospital records from Last 3 Months Immunizations Immunization Administration Dates Next Due Influenza High-dose Quadriva lent Preservative Free 05/18/2023,06/27/2022 Influenza, High Dose Seasona l, Preservative Free 05/11/2021,06/07/2020 Influenza, IIV3, injectable 07/14/2019,1 08/21/2017,08/24/2017,06/05 Influenza, seasonal, injecta ble, preservative free 05/01/2025,06/21/2018,08/24/2017 Influenza, trivalent, adjuvanted 05/15/2024,06/21 Moderna Covid-19 Vaccine [...] degree (e.g., MA, MS, Luis Eduardo, MEd, [employer], MARLIN) 02/17/2025 Comments Unknown Sex and Gender [...] Mass Index 29.18 05/01/2025 10:06 AM EDT Plan of Treatment Upcoming Encounters Date Type Department Care Team (Late st Contact Info) Description 06/15/2025 11:40 AM EDT Telemedicine [address] [address] Sherice John MD [address] [place] [address] 08/04/2025 9:30 AM EST Office Visit [address] [address] Sherice John MD [address] [place] [address] Health Maintenance Due Date Last Done Comments CT Colonography 1952 FIT DNA/Cologuard 1952 FIT 1952 FOBT 1952 Sigmoidoscopy 1952 Zoster Vaccines (1 of 2) 2002 HPV/Cotest 01/31/2021 COVID-19 Vaccine ( season) 2025 07/25/2024, 12/04/2023, 05/18/2023, Additional history exists Depression Screening 12/31/2025 12/31/2024, 01/01/20 25 Mammogram 12/31/2025 01/01/2024, 12/18, 01/01/2024, Additional history exists Alcohol/Substance Use Screening 01/01/2026 01/01/2025 SDOH Screening 01/01/2026 01/01/2025 Tobacco Screening 05/01/2026 05/01/2025 Lipid Panel 09/07/2027 09/07/2022, 11/08/2021 Colonoscopy 05/06/2034 05/06/2024, 0604/2014, 12/26/2013 Colorectal Cancer Screening 05/06/2034 DTaP/Tdap/Td Vaccines (3 - Td or Tdap) 01/29/2035 01/29/2025, 05/10/2012 Hepatitis C Screening Completed 08/20/2011 Pap Smear Discontinued 02/01/2016 Pneumococcal Vaccine: 50+ Years Completed 07/14/2019, 08/24/2017 RSV Patients and Patients Aged 60 years or older Completed 05/21/2024 Influenza Vaccine Completed 05/01/2025, , 05/18/2023, Additional history exists HIB Vaccines [...] Routine 04/30/2025 Glaucoma suspect of both eyes XR LUMBOSACRAL SPINE 1 VW Routine 04/14/2025 9:[address] ANGIOGRAM CHEST INTERPRETATION Routine 04/14/2025 9:52 AM EDT XR CHEST 2 VIEWS Routine 04/06/2025 11:2 8 AM EDT XR RIBS BILATERAL 4+ VW W PA CHEST Routine 02/24/2025 12:58 PM EDT HM COLONOSCOPY Routine 05/06/2024 1:27 PM EDT BI MAMMOGRAM SCREENING TOMOSYNTHESIS BILATERAL Routine 01/01/2024 2:48 PM EDT LIPID PANEL, STANDARD Routine 09/07/2022 12:08 PM EST High cholesterol PAP SMEAR Routine 02/01/2016 12:00 AM EDT HEPATITIS C ANTIBODY (EXTERNAL RESULTS ONLY) Routine 08/20/2011 3:22 PM EST from Last 3 Months or Most Recently Relevant to Health Maintenance Results * OCT, Optic Nerve - OU - Both Eyes (04/30/2025) Impressions Parris Torres, OD - 04/30/2025 Right eye (OD): RNFL/GCC is normal; stable Left eye (OS): RNFL/GCC is normal; stable us Parris Torres OD OPHTH TOMOGRAPHY Final Result * XR LUMBOSACRAL SPINE 1 VW (04/14/2025 9:53 AM EDT) Anatomical Region Laterality Modality Radiographic Tami ging us Sherice John MD IMG XR PROCEDURES Final Result * CT angiogram chest interpretation (04/14/2025 9:52 AM EDT) Anatomical Region Laterality Modality Computed Tomogra phy Result [facility] Gisela Unassigned Pcp IMG CT PROCEDURES Final Result * XR Chest 2 Views (04/06/2025 11:28 AM EDT) Anatomical Region Laterality Modality Chest Radiographic Tami ging Kiersten Dick MD IMG XR PROCEDURES Final R esult * XR RIBS BILATERAL 4+ VW W PA CHEST (02/24/2025 12:58 PM EDT) Anatomical Region Laterality Modality Rib, Abdomen Bilateral Radiographic Tami ging Result [facility] Sherice John MD IMG XR PROCEDURES Final Result * Hm Colonoscopy (05/06/2024 1:27 PM EDT) Result [facility] Sherice John MD HEALTH MAINTENANCE Final Result * BI Mammogram Screening Tomosynthesis Bilateral (01/01/2024 2:48 PM EDT) Anatomical Region Laterality Modality Breast Bilateral Mammography Result [facility] Sherice John MD IMG BI PROCEDURES Final Result * Lipid panel (09/07/2022 12:08 PM EST) Cholesterol, Total 164 (<200) MG/DL [facility] Triglyceride (mg/dL) in Serum/Plasma 83 (<150) MG/DL [facility] HDL Cholesterol 75 (>39) MG/DL [facility] LDL Cholesterol, Calculated 72 (0-130) MG/DL [facility] Non HDL Chol. (LDL+VLDL) 89 (<160) MG/DL [facility] Comment: Testing performed or reported by [facility], a Service of [facility], [address] [place] [id number] Lulu Masters MD, Farm Crops Teacher [facility]# [id number] Blood Venous blood specimen / Unknown 09/07/2022 12:08 PM EST 09/07/2022 12:10 PM EST us Sherice John MD LAB BLOOD ORDERABLES Final Resul t [facility] [address] [place] [address] * Pap Smear (02/01/2016 12:00 AM EDT) Swab Historical Provider LAB CYTOLOGY ORDERABLES F inal Result * Hepatitis C Antibody (08/20/2011 3:22 PM EST) Hepatitis C Antibody Nonreactive Blood 08/20/2011 3:22 PM EST Historical Provider POINT OF CARE TEST ENTER/ EDIT ORDERABLES Final Result from Last 3 Months or Most Recently Relevant to Health Maintenance Insurance MEDICARE [facility] MEDICARE REPLACEMENT [facility] MEDICARE [facility] MEDICARE [facility]PLACEMENT [facility] Care Teams Substation Electrician Relationship Specialty Start Date End Date Sherice John MD [address] [place] [address] PCP - General Internal Medicine 08/08/22
--- OUTSIDE RECORDS SUMMARY | 2025-05-04 09:21 | XMS_ITS | Encounter Summary ---
Author Organization [facility] Address [address] [place] [address] Phone Care Team Providers Care Dry Curer Name Role Phone Sherice John MD Primary Care Provider [phone] Deya Sotelo MD Unavailable [phone] Joni Deleon MD Unavailable Mikal Jones MD Unavailable [phone] Lulú Vizcaino [facility] Unavailable [phone] Encounter Details Date Type Department Care Team (Late st Contact Info) Description 10/22/2018 Ancillary Orders Virtual Department [address] [place] [address] Sherice John MD [address] [place] [phone] [email or web address] Shortness of breath Social History Tobacco Use [...] PM EDT Office Visit [facility] [address] [place] [address] Rogelio Torrez DO [address] [place] [address] [email or web address] 12/10/2025 10:40 AM EDT Appointment [facility] [address] [place] [address] Lulú Vizcaino MBBS [address] [place] [address] [email or web address] 12/10/2025 11:40 AM EDT Office Visit [facility] [address] [place] [address] Lulú Vizcaino MBBS [address] [place] [address] [email or web address] 03/03/2026 8:30 AM EDT Telemedicine [facility] Cardiac Arrhythmia Service 32 [facility], 5th Floor, [address] [place] [address] Angel Domínguez MD [address] [facility] [place] [address] [email or web address] documented as of this encounter [...] documented as of this encounter Care Teams Dry Curer Relationship Specialty Start Date End Date Sherice John MD [address] [place] [address] [email or web address] PCP - General Internal Medicine 03/08/18 Deya Sotelo MD [address] [place] [address] [email or web address] Primary Oncologist Hematology and Oncology 11/27/2211/18 Joni Deleon MD [address] [place] [address] [place] [address] Pulmonary Disease 07/18/23 Mikal Jones MD [address] [place] [address] [address] [place] [address] Cardiology 07/23/23 Lulú Vizcaino MBBS 2 [facility] Center [address] [place] [address] [email or web address] Primary Oncologist Medical Oncology 11/29/23 documented as of this encounter Additional Source Comments The information contained in this document represents components of the legal health record. It is not the complete legal health record.[facility]
--- OUTSIDE RECORDS SUMMARY | 2025-05-04 09:21 | XMS_ITS | Encounter Summary ---
Author Organization [facility] Address [address] [place] [phone] Phone Care Team Providers Care Agricultural Technical Officer Name Role Phone Sherice John MD Primary Care Provider [phone] Joni Deleon MD Unavailable Mikal Jones MD Unavailable Lulú Vizcaino [facility] Unavailable Encounter Details Date Type Department Care Team (Latest Contact Info) Description 05/30/2024 Transcribe Orders Virtual Department [address] [place] [address] Sherice John MD [address] [place] [address] Right foot pain (Primary Dx) Social History [...] 1:00 PM EDT Office Visit [facility] [address] [place] [address] Rogelio Torrez DO [address] [place] [address] 12/10/2025 10:40 AM EDT Appointment [facility] [address] [place] [address] Lulú Vizcaino MBBS [address] [place] [address] [email or web address] 12/10/2025 11:40 AM EDT Office Visit [facility] [address] [place] [address] Lulú Vizcaino MBBS [address] [place] [address] [email or web address] 03/03/2026 8:30 AM EDT Telemedicine [facility] Cardiac Arrhythmia Service [address] [facility], 5th Floor, [address] [place] [address] Angel Domínguez MD 55 [facility] [address] [place] [address] [email or web address] documented as of this encounter Visit Diagnoses Diagnosis Right foot pain- Primary Pain in soft tissues of limb documented in this encounter Care Teams Agricultural Technical Officer Relationship Specialty Start Date End Date Sherice John MD [address] [place] [address] [email or web address] PCP - General Internal Medicine 03/08/18 Joni Deleon MD [address] [place] [address] [place] [address] Pulmonary Disease 07/18/23 Mikal Jones MD 2 [facility] [address] [place] [address] Cardiology 07/23/23 Lulú Vizcaino MBBS 2 [facility] [address] [place] [address] [email or web address] Primary Oncologist Medical Oncology 11/29/23 documented as of this encounter Additional Source Comments The information contained in this document represents components of the legal health record. It is not the complete legal health record.[facility]
--- OUTSIDE RECORDS SUMMARY | 2025-05-04 09:21 | XMS_ITS | Encounter Summary ---
Author Organization [facility] Address [address] [place] [address] Phone Care Team Providers Care Engineer Geophysical Laboratory Name Role Phone Sherice John MD Primary Care Provider Deya Sotelo MD Unavailable Joni Deleon MD Unavailable Mikal Jones MD Unavailable [phone] Lulú Vizcaino [facility] Unavailable Encounter Details Date Type Department Care Team (Late st Contact Info) Description 03/08/2018 Ancillary Orders Virtual Department [address] [place] [address] Juana Woody MD [address] [place] [address], [address] [address] [email or web address] Calculus of ureter [...] PM EDT Office Visit [facility] [address] [place] [address] Rogelio Torrez DO [address] [place] [address] [email or web address] 12/10/2025 10:40 AM EDT Appointment [facility] 30 [place] [address] Lulú Vizcaino MBBS 30 [place] [address] [email or web address] 12/10/2025 11:40 AM EDT Office Visit [facility] at [employer] [address] [place] [address] Lulú Vizcaino MBBS [address] [place] [address] [email or web address] 03/03/2026 8:30 AM EDT Telemedicine [facility] Cardiac Arrhythmia Service 32 [facility], 5th Floor, [address] [place] [address] Angel Domínguez MD 55 [facility] [address] [place] [address] [email or web address] documented as of this encounter Visit Diagnoses [...] documented as of this encounter Care Teams Engineer Geophysical Laboratory Relationship Specialty Start Date End Date Sherice John MD [address] [place] [address] PCP - General Internal Medicine 03/08/18 Deya Sotelo MD [address] [place] [address] [email or web address] Primary Oncologist Hematology and Oncology 11/27/2211/18 Joni Deleon MD [address] [place] [address] [place] [address] Pulmonary Disease 07/18/23 Mikal Jones MD [address] [place] [address] [address] [place] [address] Cardiology 07/23/23 Lulú Vizcaino MBBS 2 [facility] [address] [place] [address] [email or web address] Primary Oncologist Medical Oncology 11/29/23 documented as of this encounter Additional Source Comments The information contained in this document represents components of the legal health record. It is not the complete legal health record.[facility]
--- OUTSIDE RECORDS SUMMARY | 2025-05-04 09:21 | XMS_ITS | Encounter Summary ---
Author Organization [facility] Address [address] [place] [address] Phone Care Team Providers Care It Business Process Architect Name Role Phone Sherice John MD Primary Care Provider [phone] Deya Sotelo MD Unavailable Joni Deleon MD Unavailable Mikal Jones MD Unavailable Lulú Vizcaino Unavailable [phone] Encounter Details Date Type Department Care Team (Late st Contact Info) Description 10/25/2022 Procedure Pass [facility], Ct Scan - [address] [address] Social History Tobacco Use Types Packs/Day Years [...] 10/25/2022 2:41 PM Rhea Ordaz, NAREN * Green Suicide Severity Rating Scale (Screener/Recent Self-Report) Question [...] PM EDT Office Visit [facility] 22 [place] [address] Rogelio Torrez DO 22 [place] [address] [email or web address] 12/10/2025 10:40 AM EDT Appointment [facility] 30 [place] [address] Lulú Vizcaino MBBS [address] [place] [address] [email or web address] 12/10/2025 11:40 AM EDT Office Visit [facility] [place] 30 [place] [address] Lulú Vizcaino MBBS 30 [place] [address] [email or web address] [place] 03/03/2026 8:30 AM EDT Telemedicine [facility] Cardiac Arrhythmia Service [address], 5th [address], [address] [place] [address] Angel Domínguez MD 55 [facility] [address] [place] [address] [email or web address] documented as of this encounter Visit Diagnoses Not on filedocumented in this encounter Additional Health Concerns Infection Onset Date Last Indicated Resolved Time CoV-Risk 10/25/2022 10/25/2022 11/05/2022 1:22 AM EDT CoV-Risk 11/24/2022 11/24/2022 12/05/2022 1:22 AM EDT documented as of this encounter Care Teams It Business Process Architect Relationship Specialty Start Date End Date Sherice John MD [address] [place] [phone] [email or web address] PCP - General Internal Medicine 03/08/18 Deya Sotelo MD [address] [address] [email or web address] Primary Oncologist Hematology and Oncology 11/27/2211/18 Joni Deleon MD [address] [place] [address] [place] [address] Pulmonary Disease 07/18/23 Mikal Jones MD [address] [place] [address] [place] [address] Cardiology 07/23/23 Lulú Vizcaino MBBS 2 [facility] Center [address] [place] [address] [email or web address] Primary Oncologist Medical Oncology 11/29/23 documented as of this encounter Additional Source Comments The information contained in this document represents components of the legal health record. It is not the complete legal health record.[facility]
--- OUTSIDE RECORDS SUMMARY | 2025-05-04 09:21 | XMS_ITS | Encounter Summary ---
Author Organization [facility] Address [address] [place] [address] Phone Care Team Providers Care Websphere Process Server Developer Name Role Phone Sherice John MD Primary Care Provider Deya Sotelo MD Unavailable [phone] Joni Deleon MD Unavailable [phone] Mikal Jones MD Unavailable Lulú Vizcaino Unavailable [phone] Encounter Details Date Type Department Care Team (Late st Contact Info) Description 05/10/2022 Procedure Pass [facility], Ct Scan - [address] [address] Social History Tobacco Use Types Packs/Day Years [...] 11:35 AM EDT Elaine Wray RN * [place] Suicide Severity Rating Scale (Screener/Recent Self-Report) Question [...] PM EDT Office Visit [facility] 22 [place] [address] Rogelio Torrez DO 22 [place] [address] [email or web address] 12/10/2025 10:40 AM EDT Appointment [facility] 30 [place] [address] Lulú Vizcaino MBBS [address] [place] [address] [email or web address] [email or web address] 12/10/2025 11:40 AM EDT Office Visit [facility] [place] 30 [place] [address] Lulú Vizcaino MBBS [address] [place] [address] [email or web address] [place] 03/03/2026 8:30 AM EDT Telemedicine [facility] Cardiac Arrhythmia Service 32 [facility], 5th Floor, [address] [place] [address] Angel Domínguez MD 55 [facility] [address] [place] [address] [email or web address] documented as of this encounter Visit Diagnoses Not on filedocumented in this encounter Additional Health Concerns Infection Onset Date Last Indicated Resolved Time CoV-Risk 07/04/2022 07/04/2022 07/15/2022 4:44 AM EST CoV-Risk 10/12/2022 10/12/2022 10/23/2022 1:22 AM EST CoV-Risk 10/25/2022 10/25/2022 11/05/2022 1:22 AM EDT CoV-Risk 11/24/2022 11/24/2022 12/05/2022 1:22 AM EDT documented as of this encounter Care Teams Websphere Process Server Developer Relationship Specialty Start Date End Date Sherice Jhon MD [address] [place] [address] [email or web address] PCP - General Internal Medicine 03/08/18 Deya Sotelo MD [address] [place] [address] [email or web address] Primary Oncologist Hematology and Oncology 11/27/2211/18 Joni Deleon MD [address] [place] [address] [place] [address] Pulmonary Disease 07/18/23 Mikal Jones MD [address] [place] [address] [place] [address] Cardiology 07/23/23 Lulú Vizcaino MBBS 2 [facility] [address] [place] [address] [email or web address] Primary Oncologist Medical Oncology 11/29/23 documented as of this encounter Additional Source Comments The information contained in this document represents components of the legal health record. It is not the complete legal health record.[facility]
--- OUTSIDE RECORDS SUMMARY | 2025-05-04 09:21 | XMS_ITS | Encounter Summary ---
Author Organization [facility] Address [address] [place] [address] Phone Care Team Providers Care Supervisor Conditioning Yard Name Role Phone Sherice John MD Primary Care Provider Deya Sotelo MD Unavailable Joni Deleon MD Unavailable Mikal Jones MD Unavailable Lulú Vizcaino Unavailable [phone] Encounter Details Date Type Department Care Team (Late st Contact Info) Description 10/25/2023 Procedure Pass [facility], [address] [address] Social History Tobacco Use Types Packs/Day Years [...] PM EDT Office Visit [facility] 22 [place] [address] Rogelio Torrez DO 22 [place] [address] [email or web address] 12/10/2025 10:40 AM EDT Appointment [facility] 30 [place] [address] Lulú Vizcaino MBBS 30 [place] [address] [email or web address] 12/10/2025 11:40 AM EDT Office [facility] Miguel Angel 30 [place] [address] Lulú Vizcaino MBBS 30 [place] [address] [email or web address] 03/03/2026 8:30 AM EDT Telemedicine [facility] Cardiac Arrhythmia Service 32 [facility], 5th Floor, [address] [place] [address] Angel Domínguez MD 55 [facility] [address] [place] [address] [email or web address] documented as of this encounter Visit Diagnoses Not on filedocumented in this encounter Care Teams Supervisor Conditioning Yard Relationship Specialty Start Date End Date Sherice John MD [address] [place] [address] [email or web address] PCP - General Internal Medicine 03/08/18 Deya Sotelo MD [address] [address] [email or web address] Primary Oncologist Hematology and Oncology 11/27/2211/18 Joni Deleon MD [address] [place] [address] [place] [address] Pulmonary Disease 07/18/23 Mikal Jones MD [address] [place] [address] [place] [address] Cardiology 07/23/23 Lulú Vizcaino MBBS [address] [place] [address] Center [address] [place] [address] [email or web address] Primary Oncologist Medical Oncology 11/29/23 documented as of this encounter Additional Source Comments The information contained in this document represents components of the legal health record. It is not the complete legal health record.[facility]
--- OUTSIDE RECORDS SUMMARY | 2025-05-04 09:21 | XMS_ITS | Encounter Summary ---
Author Organization [facility] Address [address] [place] [address] Phone Care Team Providers Care Workplace Rehabilitation Officer Name Role Phone Sherice John MD Primary Care Provider [phone] Deya Sotelo MD Unavailable Joni Deleon MD Unavailable Mikal Jones MD Unavailable Lulú Vizcaino [facility] Unavailable [phone] Reason for Referral * MRI/CAT Scan - Closed Specialty Diagnoses / Procedures Referred By Contac t Referred To Contact Radiology Diagnoses Radicular pain in left arm Procedures MRI Cervical Spine Sherice John MD Phone: tel: fax: mailto:[email or web address] Referral ID Status Reason Start Date Expiration Date Visits Re quested Visits Authorized [id number] Closed 11/29/2018 11/29/2019 1 1 * MRI/CAT Scan - Closed Specialty Diagnoses / Procedures Referred By Contac t Referred To Contact Radiology Diagnoses Radicular pain in left arm Procedures MRI Thoracic Spine Sherice John MD Phone: tel: fax: mailto:[email or web address] Referral ID Status Reason Start Date Expiration Date Visits Re quested Visits Authorized [id number] Closed 11/29/2018 11/29/2019 1 1 Encounter Details Date Type Department Care Team (Latest Contact Info) Description 11/29/2018 Transcribe Orders Virtual Department 30 [place] [address] Sherice John MD [address] [place] [address] [email or web address] Radicular pain in left arm (Primary Dx) [...] PM EDT Office Visit [facility] 22 [place] [address] Rogelio Torrez DO 22 [place] [address] 12/10/2025 10:40 AM EDT Appointment [facility] 30 [place] [address] Lulú Vizcaino MBBS 30 [place] [address] [email or web address] 12/10/2025 11:40 AM EDT Office Visit [facility] 30 [place] [address] Lulú Vizcaino MBBS 30 [place] [address] [email or web address] 03/03/2026 8:30 AM EDT Telemedicine [facility] Cardiac Arrhythmia Service [address] [facility], 5th Floor, [address] [place] [address] Angel Domínguez MD 55 [facility] [address] [place] [address] [email or web address] documented as of this encounter [...] evidence for cord edema or myelomalacia. POS [id number] Edited by: Brandi Mosley on 12/13/2018 9:32 [...] without evidencefor cord edema or myelomalacia. POS [id number] Edited by: Brandi Mosley on 12/13/2018 9:32 [...] without any significant canal narrowing. POS - [id number] Edited by: Brandi Mosley on 12/13/2018 9:33 [...] of L1 and minimal disc bulging at [id number] in mild canal stenosis. 2. No levels of any significant neural foraminal stenosis in the thoracicspine. 3. Tiny disc protrusions at T5-T6 and T7-T8 without any significant canalnarrowing. POS - [id number] Edited by: Brandi Mosley on 12/13/2018 9:33 [...] documented as of this encounter Care Teams Workplace Rehabilitation Officer Relationship Specialty Start Date End Date Sherice John MD 73 [place] [address] PCP - General Internal Medicine 03/08/18 Deya Sotelo MD [facility] [address] [address] [email or web address] Primary Oncologist Hematology and Oncology 11/27/2211/18 Joni Deleon MD [address] [place] [address] [place] [address] Pulmonary Disease 07/18/23 Mikal Jones MD [address] [place] [address] [place] [address] Cardiology 07/23/23 Lulú Vizcaino MBBS [address] [place] [address] [address] [place] [address] [email or web address] Primary Oncologist Medical Oncology 11/29/23 documented as of this encounter Additional Source Comments The information contained in this document represents components of the legal health record. It is not the complete legal health record.[facility]
--- OUTSIDE RECORDS SUMMARY | 2025-05-04 09:22 | XMS_ITS | Encounter Summary ---
Author Organization [facility] Address [address] [place] [address] Phone Care Team Providers Care Flight Engineer Performance Qualified Name Role Phone Sherice John MD Primary Care Provider Deya Sotelo MD Unavailable Joni Deleon MD Unavailable Mikal Jones MD Unavailable Lulú Vizcaino Unavailable [phone] Encounter Details Date Type Department Care Team (Late st Contact Info) Description 12/07/2021 Procedure Pass [facility], [address] [address] Social History Tobacco Use Types Packs/Day Years [...] PM EDT Office Visit [facility] 22 [place] [address] Rogelio Torrez DO 22 [place] [address] [email or web address] 12/10/2025 10:40 AM EDT Appointment [facility] 30 [place] [address] Lulú Vizcaino MBBS 30 [place] [address] [email or web address] 12/10/2025 11:40 AM EDT Office Visit [facility] [place] 30 [place] [address] Lulú Vizcaino MBBS [address] [place] [address] [email or web address] 03/03/2026 8:30 AM EDT Telemedicine [facility] Cardiac Arrhythmia Service 32 [facility], 5th Floor, [address] [place] [address] Angel Domínguez MD 55 [facility] [place] [address] [email or web address] documented as of this encounter Visit Diagnoses Not on filedocumented in this encounter Additional Health Concerns Infection Onset Date Last Indicated Resolved Time CoV-Risk 07/04/2022 07/04/2022 07/15/2022 4:44 AM EST CoV-Risk 10/12/2022 10/12/2022 10/23/2022 1:22 AM EST CoV-Risk 10/25/2022 10/25/2022 11/05/2022 1:22 AM EDT CoV-Risk 11/24/2022 11/24/2022 12/05/2022 1:22 AM EDT documented as of this encounter Care Teams Flight Engineer Performance Qualified Relationship Specialty Start Date End Date Sherice John MD 73 [place] [address] [email or web address] PCP - General Internal Medicine 03/08/18 Deya Sotelo MD [address] [address] [email or web address] Primary Oncologist Hematology and Oncology 11/27/2211/18 Joni Deleon MD [address] [place] [address] [place] [address] Pulmonary Disease 07/18/23 Mikal Jones MD [address] [place] [address] [address] [place] [address] Cardiology 07/23/23 Lulú Vizcaino, JORGE [address] [place] [address] Center [address] [place] [address] [email or web address] Primary Oncologist Medical Oncology 11/29/23 documented as of this encounter Additional Source Comments The information contained in this document represents components of the legal health record. It is not the complete legal health record.[facility]
--- OUTSIDE RECORDS SUMMARY | 2025-05-04 09:22 | XMS_ITS | Clinical Summary ---
Author Organization [facility] Address [address] [place] [address] Phone Care Team Providers Care Reinforcing Steel Worker Name Role Phone Sherice Paulino MD Primary Care Provider Joni Deleon MD Unavailable Mikal Jones MD Unavailable [phone] Lulú Vizcaino [facility] Unavailable [phone] Allergies Active Allergy Reactions Criticality Noted Date [...] tablet by mouth daily. Active ID-denosumab <PROLIA> (17-840) 60 mg/mL subcutaneous injection Inject under the [...] the lungs. 022 Discontin ued(Dupli axel order) Active Problems Patient Care Coordination No te [...] this patient's care PVC (premature ventricular contraction) 11/08/19 23 03/16/2023 Carpal tunnel syndrome on both sides 07/24/2022 [...] Encounters Date Type Department Care Team Description 04/28/2025 1:00 PM EDT - 04/28/2025 11:59 PM EDT Hospital Encounter [facility] Holter Lab [address] [facility], 5th Floor, [address] [place] [address] Angel Domínguez MD Arrived Discharge Disposition: Home or Self Care 04/27/2025 Procedure Pass [facility] Holter Lab [address] [facility], 5th Floor, [address] [place] [address] 04/27/2025 Orders Only [facility] Cardiac Arrhythmia Service [address] [place] [address], 5th Floor, [address] [place] [address] Silvana Gupta RN PVC (premature ventricular contraction) (Primary Dx); Palpitations 03/25/2025 Refill [facility] Cardiac Arrhythmia Service [address] [facility], 5th Floor, [address] [place] [address] Angel Domínguez MD Medication Refill 03/04/2025 9:00 AM EDT Telemedicine [facility] Cardiac Arrhythmia Service [address] [place] [address], 5th Floor, [address] [place] [address] Angel Domínguez MD PVC (premature ventricular contraction) (Primary Dx) 02/27/2025 2:48 PM EDT - 02/27/2025 11:59 PM EDT Hospital Encounter [facility] [address] [place] [address] Angel Domínguez MD Discharge Disposition: Home or Self Care 02/10/2025 8:33 PM EDT - 02/10/2025 9:47 PM EDT Emergency [facility] [address] [place] [address] Anirudh Rivero MD Discharge Disposition: Home or Self Care 02/10/2025 5:30 PM EDT Office Visit [facility] [place] [address] Manuel Garza CNP Chest pain, unspecified type (Primary Dx); Cat scratch 02/10/2025 1:20 PM EDT Telemedicine [facility] [address] [place] [address] Zelalem Johansen MD Cat scratch (Primary Dx) 02/08/2025 10:00 AM EDT Office Visit [facility] at [address] [address] Stacey Mckeon CNP Cat scratch (Primary Dx) from Last 3 Months Immunizations Immunization Administration [...] Patient Refused),10/22/2019(Deferred: Patient Refused),10/22/2019(Deferred: Not Available From Decorating Machine Operator),07/14/2019 Pneumococcal polysaccharide PPSV23 08/24/2017 RSV Vaccine (monovalent, [...] PM EDT Office Visit [facility] [address] [place] [address] Rogelio Torrez DO 22 [place] [address] [email or web address] 12/10/2025 10:40 AM EDT Appointment [facility] 30 [place] [address] Lulú Vizcaino MBBS [address] [place] [address] [email or web address] 12/10/2025 11:40 AM EDT Office Visit [facility] [place] Miguel Angel [address] [place] [address] Lulú Vzicaino MBBS [address] [place] [address] [email or web address] 03/03/2026 8:30 AM EDT Telemedicine [facility] Cardiac Arrhythmia Service [address] [facility], 5th Floor, [address] [place] [address] Angel Domínguez MD [address] [facility] [address] [place] [address] [email or web address] Health Maintenance Due Date Last Done Comments DEPRESSION SCREENING 1964 HEPATITIS C SCREENING 1970 COLOGUARD 1997 FIT TEST 1997 FOBT 1997 SIGMOIDOSCOPY 1997 VIRTUAL COLONOSCOPY 1997 ZOSTER VACCINES (1 of 2) 2002 INFLUENZA VACCINE (#1) 2025 , 05/18/2023, 06/27/2022, Additional history exists COVID-19 VACCINE ( season) 2025 07/25/2024, 12/04/2023, 05/18/2023, Additional [...] this topic Medical Devices Implanted Type Area Decorating Machine Operator Device Identifier Shelf Expiration Date Model / [...] LFTs (hepatic panel) (02/27/2025 3:07 PM EDT) ALKALINE PHOSPHATASE 131(H) 39 - 117 U/L [facility] TOTAL BILIRUBIN 0.4 0.0 - 1.2 mg/dL [facility] DIRECT BILIRUBIN 0.1 0.0 - 0.2 mg/dL [facility] Bilirubin (Indirect) NOT CALCULATED 0 - 1.5 mg/dL [facility] AST 21 0 - 37 U/L [facility] ALT 11 0 - 40 U/L [facility] TOTAL PROTEIN 7.5 6.5 - 8.0 g/dL [facility] ALBUMIN 4.4 3.9 - 4.8 g/dL [facility] GLOBULIN 3.1 1 - 4.8 g/dL [facility] A/G Ratio 1.42 1.00 - 4.80 RATIO [facility] Blood 02/27/2025 3:07 PM EDT 02/27/2025 3:10 PM EDT us Angel Domínguez MD LAB BLOOD ORDERABLES Fin al Result [facility] [address] [place] [address] * (ABNORMAL) Troponin (02/10/2025 7:33 PM EDT) Only the most recent of2 resultswithin the time period is included. Troponin-T, HS Gen5 14(H) 0 - 9 ng/L [facility] Blood 02/10/2025 7:33 PM EDT 02/10/2025 7:36 PM EDT Brayden Jiang MD LAB BLOOD ORDERAB LES Final Result [address] [address] * CBC and differential (02/10/2025 6:42 PM EDT) WBC 6.79 4.00 - 11.00 K/uL [facility] RBC 4.32 4.00 - 5.20 M/uL [facility] HGB 13.4 12.0 - 16.0 g/dL [facility] HCT 41.5 36.0 - 46.0 % [facility] PLT 180 150 - 450 K/uL [facility] MCV 96.1 80.0 - 100.0 fL [facility] MCH 31.0 27.0 - 31.0 pg [facility] MCHC 32.3 32.0 - 36.0 g/dL [facility] RDW 13.0 11.5 - 14.5 % [facility] MPV 11.3 8.4 - 12.0 fL [facility] NRBC 0.00 0.00 /100 WBCs [facility] ABSOLUTE NRBC 0.00 0.00 K/uL [facility] DIFF METHOD Auto [facility] NEUTS 55.5 48.0 - 76.0 % [facility] LYMPHS 34.8 18.0 - 41.0 % [facility] MONOS 7.5 4.0 - 11.0 % [facility] EOS 1.8 0.0 - 5.0 % [facility] BASOS 0.3 0.0 - 1.5 % [facility] Granulocytes, immature (%) 0.1 0.0 - 0.9 % [facility] ABSOLUTE NEUTS 3.77 1.92 - 7.60 K/uL [facility] ABSOLUTE LYMPHS 2.36 0.72 - 4.10 K/uL [facility] ABSOLUTE MONOS 0.51 0.16 - 1.10 K/uL [facility] ABSOLUTE EOS 0.12 0.00 - 0.50 K/uL [facility] ABSOLUTE BASOS 0.02 0.00 - 0.15 K/uL [facility] Granulocytes, immature 0.01 0.00 - 0.09 K/uL [facility] Blood 02/10/2025 6:42 PM EDT 02/10/2025 6:45 PM EDT us Anirudh Rivero MD LAB BLOOD ORDERABLES Final Resul t Performing Organization Address City/[facility]/ZIP Co de Phone Number [address] [address] * (ABNORMAL) Basic metabolic panel (02/10/2025 6:42 PM EDT) SODIUM 143 133 - 146 mmol/L [facility] CHLORIDE 102 96 - 108 mmol/L [facility] POTASSIUM 4.4 3.3 - 5.1 mmol/L [facility] CO2 30 21 - 35 mmol/L [facility] BUN 18 6 - 19 mg/dL [facility] CREATININE 0.90 0.5 - 1.5 mg/dL [facility] GLUCOSE 103(H) 70 - 99 mg/dL [facility] CALCIUM 9.3 8.4 - 10.3 mg/dL [facility] EGFR 68 >59 mL/min/1.7 3m2 [facility] Comment:Estimated glomerular filtration rate calculated using the CKD-EPI refit equation. ANION GAP 15 10 - 20 mmol/L [facility] Blood 02/10/2025 6:42 PM EDT 02/10/2025 6:45 PM EDT us Anirudh Rivero MD LAB BLOOD ORDERABLES Final Resul t [address] [address] * XR CHEST PA AND LATERAL 2 [...] clinician's provided indication for this examination in [facility]: Pain TECHNIQUE: Chest frontal and lateral views. [...] clinician's provided indication for this examination in [facility]:Pain TECHNIQUE: Chest frontal and lateral views. COMPARISON: [...] acute or chronic. Correlation with symptoms isrecommended. Anirudh Rivero MD IMG XR CHEST Final Result * ECG 12-LEAD (02/10/2025 6:11 PM EDT) Ventricular Rate EKG/MIN 92 BPM [facility] Atrial Rate 92 BPM [facility] IA Interval 134 ms [facility] QRS Duration 76 ms [facility] QT Interval 346 ms [facility] QTC Interval 427 ms [facility] P Crownpoint 49 degrees [facility] R Wave [place] 3 degrees [facility] T Wave [place] 43 degrees [facility] 02/10/2025 6:11 PM EDT [...] Anirudh Rivero MD ECG ORDERABLES Final Result [facility] * BD DXA AXIAL (SPINE) WITH HIP (11/24/2024 2:28 PM EDT) Anatomical Region Laterality Modality Bone Density Bone Density 11/24/2024 2:16 PM EDT Impressions 11/25/2024 12:54 PM EDT Interpretation: Osteopenia. Narrative 11/25/2024 12:54 PM EDT Referred By: SHERICE PAULINO Indications: Osteoporosis Scanner: [employer] A with serial# of [id number] located at [facility] Bone Density Scan (DXA) 11/24/24 Details [...] -2.5), or Osteoporosis (T-score <= -2.5). At [facility], T-scores are compared to peak bone [...] Referred By: SHERICE PAULINO Indications: Osteoporosis Scanner: [employer] A with serial# of [id number] located at [facility] Bone Density Scan (DXA) 11/24/24 Details [...] -2.5), or Osteoporosis (T-score <= -2.5). At [facility], T-scores are compared to peak bone [...] Dailey MD - 05/06/2024 11:14 AM EDT [facility] Patient Name: Mary Delgado Attending MD:: MICHEL DAILEY MD, , Procedure Date: 05/06/2024 11:14 AM Date of : 1950 Age: 73 Admit Type: Outpatient Gender: Female Room: [place] [address] Referring MD: Sherice Paulino MD Exam Type: [...] monitored continuously. The Olympus adult variable colonoscope [id number] #7 was introduced through the anus and advanced to the cecum, identified by appendiceal orifice andileocecal valve. The colonoscopy was performed withdifficulty due to significant looping. Successful completionof the procedure was aided by applying abdominal pressure. The patient tolerated the procedure well. The quality of the bowel preparation was excellent. The quality of the bowel preparation was evaluated using the BBPS ([place] Bowel Preparation Scale)with scores of: Right Colon [...] 11:14 AM Procedure Code(s): --- Professional --- 34363, Colonoscopy, flexible; with removal of tumor(s), polyp(s), or other lesion(s) by snare technique --- Technical --- 32154, Colonoscopy, flexible; with removal of tumor(s), polyp(s), [...] or abscess without bleeding CPT copyright 2021 [employer] [place] [employer]. All rights reserved. The codes documented in this report are preliminary and upon hot man reviewmay be revised to meet current compliance requirements. Procedure Date: 05/06/2024 11:14:49 AM [address] [place] [address] us Sherice Paulino MD GI PROCEDURE ORDERABLES Final [...] Maintenance Insurance MEDICARE PART A & B Member Subscriber Plan / Payer (Ef fective 2017-Present) Name:Mary Delgado Member ID:[id number] Relation to Subscriber:Self Name:Mary Delgado Subscriber ID:[id number] Payer ID:[id number] Group ID:Not on file Type:Medicare Address: [facility] [employer] [facility] [address] [place] [address] [place] [address] [employer] MEDICARE SUPPLEMENT MEDICARE PART A & B Member Subscriber Plan / Payer ( fective 2017-Present) Name:Mary Delgado Member ID:[id number] Relation to Subscriber:Self Name:Mary Delgado Subscriber ID:[id number] Payer ID:[id number] Group ID:Not on file Type:Medicare Address: [facility] [employer] [facility] [address] [place], [place] [id number] [facility] MEDICARE SUPPLEMENT [employer] EXTENSION MEDICARE SUPPLEMENT MEDICARE PART A & B [employer] EXTENSION MEDICARE SUPPLEMENT MEDICARE PART A & B [employer] MEDICARE SUPPLEMENT MEDICARE PART A & B [employer] MEDICARE SUPPLEMENT MEDICARE PART A & B [employer] MEDICARE SUPPLEMENT MEDICARE PART A & B [employer] MEDICARE SUPPLEMENT MEDICARE PART A & B [facility] EXTENSION MEDICARE SUPPLEMENT Advance Directives For more information, please contact: [phone] (9AM - 5PM [facility], Sunday-Sunday) * Full Code (Presumed) (Latest Code Status on File) Date Activated Date Inactivated Comments 10/22/2019 5:26 AM 10/24/2019 6:33 PM * Full Code (Presumed) Date Activated Date Inactivated Comments 10/22/2019 12:40 AM 10/22/2019 5:26 AM Care Teams Reinforcing Steel Worker Relationship Specialty Start Date End Date Sherice Paulino MD [address] [place] [address] [email or web address] PCP - General Internal Medicine 03/08/18 Joni Deleon MD [address] [place] [address] [place] [address] Pulmonary Disease 07/18/23 Mikal Jones MD [address] [place] [address] [place] [address] Cardiology 07/23/23 Lulú Vizcaino MBBS [address] [place] [address] [place] [address] [email or web address] Primary Oncologist Medical Oncology 11/29/23 Additional Source Comments The information contained in this document represents components of the legal health record. It is not the complete legal health record.[facility]
--- OUTSIDE RECORDS SUMMARY | 2025-05-04 09:22 | XMS_ITS | Encounter Summary ---
Author Organization [employer] Address [address] [facility] 7t [place] [address] Care Team Providers Care Beeswax Bleacher Name Role Phone Sherice John MD Primary Care Provider [phone] Encounter Details Date Type Department Care Team (Late st Contact Info) Description 01/16/2024 Orders Only [facility] MED[facility] [address] [place] [address] Provider, MD Kiersten Social History Tobacco Use [...] Info) Description 06/15/2025 11:40 AM EDT Telemedicine [address] [address] Sherice John MD [address] [place] [address] 08/04/2025 9:30 AM EST Office Visit [address] [address] Sherice John MD [address] [place] [address] documented as of this encounter Procedures Procedure Name Priority Date/Time Associated Diagnosis Comments TRANSTHORACIC ECHO (TTE) COMPLETE Routine 01/03/2024 4:27 AM EDT documented in this encounter Results * Transthoracic echo (TTE) complete (01/03/2024 4:27 AM EDT) us Historical Provider MD ZAMUDIO ECHO PROCEDURES Final Result documented in this encounter Visit Diagnoses Not on filedocumented in this encounter Care Teams Beeswax Bleacher Relationship Specialty Start Date End Date Sherice John MD [address] [place] [address] PCP - General Internal Medicine 08/08/22 documented as of this encounter
--- OUTSIDE RECORDS SUMMARY | 2025-05-04 09:22 | XMS_ITS | Encounter Summary ---
Author Organization [employer] Address [address] [facility] 7t [place] [address] Care Team Providers Care Garbage Collector Name Role Phone Sherice John MD Primary Care Provider [phone] Encounter Details Date Type Department Care Team (Late st Contact Info) Description 12/07/2023 Orders Only [facility] [address] [place] [address] Sherice John MD [address] [place] [address] Social History Tobacco Use Types Packs/Day Years [...] Info) Description 06/15/2025 11:40 AM EDT Telemedicine [address] [address] Sherice John MD [address] [place] [address] 08/04/2025 9:30 AM EST Office Visit [address] [address] Sherice John MD [address] [place] [address] documented as of this encounter Procedures Procedure [...] on filedocumented in this encounter Care Teams Garbage Collector Relationship Specialty Start Date End Date Sherice John MD [address] [place] [address] PCP - General Internal Medicine 08/08/22 documented as of this encounter
--- OUTSIDE RECORDS SUMMARY | 2025-05-04 09:22 | XMS_ITS | Encounter Summary ---
Author Organization [employer] Address [address] [facility] 7t [place] [address] Care Team Providers Care Appraiser Timber Name Role Phone Sherice John MD Primary Care Provider [phone] Encounter Details Date Type Department Care Team (Late st Contact Info) Description 04/15/2025 Orders Only [facility] [address] [place] [address] Sherice John MD [address] [place] [address] Social History Tobacco Use Types Packs/Day Years [...] degree (e.g., DEVENDRA, MS, Luis Eduardo, MEd, MANAGER COPY, MARLIN) 02/17/2025 Comments Unknown Sex and Gender [...] Info) Description 06/15/2025 11:40 AM EDT Telemedicine [address] [address] Sherice John MD [address] [place] [address] 08/04/2025 9:30 AM EST Office Visit [address] [address] Sherice John MD [address] [place] [address] documented as of this encounter Procedures Procedure Name Priority Date/Time Associated Diagnosis Comments XR LUMBOSACRAL SPINE 1 VW Routine 04/14/2025 9:53 AM EDT documented in this encounter Results * XR LUMBOSACRAL SPINE 1 VW (04/14/2025 9:53 AM EDT) Anatomical Region Laterality Modality Radiographic Tami ging us Sherice John MD IMG XR PROCEDURES Final Result documented in this encounter Visit Diagnoses Not on filedocumented in this encounter Care Teams Appraiser Timber Relationship Specialty Start Date End Date Sherice John MD [address] [place] [address] PCP - General Internal Medicine 08/08/22 documented as of this encounter
--- OUTSIDE RECORDS SUMMARY | 2025-05-04 09:22 | XMS_ITS | Clinical Summary ---
Author Organization [facility] Address [address] [place] [address] Phone Care Team Providers Care Workers Compensation Specialist Name Role Phone Sherice John MD Primary Care Provider [phone] Allergies Active Allergy Reactions Criticality Noted Date [...] Continue diltiazem and mexiletine. Appreciate management from [facility] electrophysiology. Seasonal allergies 11/07/2022 Moderate persistent asthma [...] defer management of this issue to her technical service specialist. Fortunately her dyspnea on exertion has been stable and is not significantly interfering with her quality of life. Mild persistent asthma 02/07/2019 GERD (gastroesophageal reflux disease) 9 Immunizations Name Administration Dates Next Due Influenza [...] KNEE REPLACE KIDNEY STONE SURGERY 01/2017 PROCEDURE: KS NEPHROLITHOTOMY REMOVAL CALCULUS; COMMENT: Ureteroscopy/stone removal /stent [...] 06/23/2025 10:40 AM EST Office Visit [facility] [address] [place] [phone] Dante Ghotra NP [address] [place] [address] [place] [address] Health Maintenance Due Date Last Done [...] Comprehensive metabolic panel (06/25/2024 12:42 PM EST) Pathologist [facility] Glucose 85 70 - 99 mg/dL [facility] [...] 06/26/2024 4:07 AM EST Performed at: [address] [id number] Pneudraulic Systems Mechanic: Trudy Zamudio MD, Phone: [phone] Reshma Bartolucci HOT PLATE PRESS OPERATOR LAB BLOOD ORDERABLES Final R esult [facility] 1 from Last 3 Months or Most Recently Relevant to Health Maintenance Insurance MEDICARE [facility] Care Teams Workers Compensation Specialist Relationship Specialty Start Date End Date Sherice John MD [address] [place] [address] PCP - General Internal Medicine 01/10/19
--- OUTSIDE RECORDS SUMMARY | 2025-05-04 09:22 | XMS_ITS | Encounter Summary ---
Author Organization [facility] Address [address] [place] [address] Phone Care Team Providers Care Ruffler Name Role Phone Sherice John MD Primary Care Provider Deya Sotelo MD Unavailable Joni Deleon MD Unavailable [phone] Mikal Jones MD Unavailable Lulú Vizcaino Unavailable [phone] Encounter Details Date Type Department Care Team (Latest Contact Info) Description 11/22/2021 Transcribe Orders Virtual Department [address] [place] [address] Fide Tatum PA [address] [place] [address]. [place], [place] [phone] [email or web address] Left foot pain (Primary Dx) Social [...] PM EDT Office Visit [facility] [address] [place] [address] Rogelio Torrez DO 22 [place] [address] [email or web address] 12/10/2025 10:40 AM EDT Appointment [facility] [address] [place] [address] Lulú Vizcaino MBBS [address] [place] [address] [email or web address] 12/10/2025 11:40 AM EDT Office Visit [facility] [address] [place] [address] Lulú Vizcaino MBBS [address] [place] [address] [email or web address] 03/03/2026 8:30 AM EDT Telemedicine [facility] Cardiac Arrhythmia Service [address] [facility], 5th Floor, [address] [place] [address] Angel Domínguez MD [address] [facility] [address] [place] [address] [email or web address] documented as of this encounter [...] documented as of this encounter Care Teams Ruffler Relationship Specialty Start Date End Date Sherice John MD [address] [place] [address] [email or web address] PCP - General Internal Medicine 03/08/18 Deya Sotelo MD [address] [address] [email or web address] Primary Oncologist Hematology and Oncology 11/27/2211/18 Joni Deleon MD [address] [place] [address] [place] [address] Pulmonary Disease 07/18/23 Mikal Jones MD [address] [facility] [address] [place] [address] Cardiology 07/23/23 Lulú Vizcaino MBBS [address] [facility] [address] [place] [address] [email or web address] Primary Oncologist Medical Oncology 11/29/23 documented as of this encounter Additional Source Comments The information contained in this document represents components of the legal health record. It is not the complete legal health record.[facility]
--- OUTSIDE RECORDS SUMMARY | 2025-05-04 09:22 | XMS_ITS | Encounter Summary ---
Author Organization [employer] Address [address] [facility] 7t [place] [address] Care Team Providers Care Ballast Regulator Operator Name Role Phone Sherice John MD Primary Care Provider Reason for Visit * Reason Onset Date Comments Rx needs clairification 04/22/2024 Gabapent in Rx needs clarification Encounter Details Date Type Department Care Team (Late st Contact Info) Description 04/22/2024 Refill [facility] [address] [place] [address] Sherice John MD [address] [place] [address] Primary insomnia Social History Tobacco Use Types [...] Info) Description 06/15/2025 11:40 AM EDT Telemedicine [facility] [address] [place] [address] Sherice John MD [address] [place] [address] 08/04/2025 9:30 AM EST Office Visit [facility] [address] [place] [address] Sherice John MD [address] [place] [address] documented as of this encounter Visit Diagnoses Diagnosis Primary insomnia Persistent disorder of initiating or maintaining sleep documented in this encounter Care Teams Ballast Regulator Operator Relationship Specialty Start Date End Date Sherice John MD [address] [place] [address] PCP - General Internal Medicine 08/08/22 documented as of this encounter
--- OUTSIDE RECORDS SUMMARY | 2025-05-04 09:22 | XMS_ITS | Encounter Summary ---
Author Organization [employer] Address 75 [facility] 7t [place] [address] Care Team Providers Care Intern Name Role Phone Sherice John MD Primary Care Provider [phone] Encounter Details Date Type Department Care Team (Late st Contact Info) Description 08/25/2023 Orders Only [facility] [address] [place] [address] Sherice John MD 73 [place] [address] Social History Tobacco Use Types Packs/Day Years [...] Info) Description 06/15/2025 11:40 AM EDT Telemedicine [facility] MEDICAL 73 [place] [address] Sherice John MD [address] [place] [address] 08/04/2025 9:30 AM EST Office Visit [address] [address] Sherice John MD [address] [place] [address] documented as of this encounter Procedures Procedure Name Priority Date/Time Associated Diagnosis Comments XR CHEST 2 VIEWS Routine 08/17/2023 documented in this encounter Results * XR Chest 2 Views (08/17/2023) Anatomical Region Laterality Modality Chest Radiographic Tami ging Sherice John MD IMG XR PROCEDURES Edited Result - Final documented in this encounter Visit Diagnoses Not on filedocumented in this encounter Care Teams Intern Relationship Specialty Start Date End Date Sherice John MD [address] [place] [address] PCP - General Internal Medicine 08/08/22 documented as of this encounter
--- OUTSIDE RECORDS SUMMARY | 2025-05-04 09:22 | XMS_ITS | Clinical Summary ---
Author Organization [facility] Address [address] [place] [address] Care Team Providers Care Evs Attendant Name Role Phone Sherice John MD [...] Health Maintenance Due Date Last Done Comments Advance Care Planning 1950 Hepatitis C Virus Screening 1950 DTaP/Tdap/Td Vaccines (1 - Tdap) 1971 Mammogram 1992 Colonoscopy 1997 Pneumococcal Vaccines 50+ (1 of 1 - PCV) 2002 Zoster (Shingles) Vaccine (1 of 2) 2002 DXA Bone Density (Females,Ag es 65 and older) 2017 Influenza Vaccine 03/20/2025 COVID-19 Vaccine ( - 2023-2 5 season) 2025 RSV Vaccine 60 years and old er and Patients (1 - 1-dose 75+ series) 2027 Hepatitis B Vaccines Aged Out No long er eligible based on patient's age to complete this topic Insurance MEDICARE PART A & B [facility] [employer] Care Teams Evs Attendant Relationship Specialty Start Date End Date Sherice John MD [address] [place] [address] PCP - General 12/12/18
--- OUTSIDE RECORDS SUMMARY | 2025-05-04 09:22 | XMS_ITS | Encounter Summary ---
Author Organization [employer] Address 75 [facility] 7t [place] [address] Care Team Providers Care Legal Recruiter Name Role Phone Sherice John MD Primary Care Provider [phone] Encounter Details Date Type Department Care Team (Late st Contact Info) Description 07/31/2023 Orders Only [facility] [address] [place] [address] Sherice John MD 73 [place] [address] Social History Tobacco Use Types Packs/Day Years [...] Info) Description 06/15/2025 11:40 AM EDT Telemedicine [facility] MEDICAL [address] [place] [address] Sherice John MD [address] [place] [address] 08/04/2025 9:30 AM EST Office Visit [address] [address] Sherice John MD [address] [place] [address] documented as of this encounter Procedures Procedure Name Priority Date/Time Associated Diagnosis Comments TSH Routine 07/30/2023 documented in this encounter Results * TSH (07/30/2023) Blood Venous blood specimen / Unknown us Sherice John MD LAB BLOOD ORDERABLES Edited Resu lt - Final documented in this encounter Visit Diagnoses Not on filedocumented in this encounter Care Teams Legal Recruiter Relationship Specialty Start Date End Date Sherice John MD [address] [place] [address] PCP - General Internal Medicine 08/08/22 documented as of this encounter
--- OUTSIDE RECORDS SUMMARY | 2025-05-04 09:22 | XMS_ITS | Encounter Summary ---
Author Organization [employer] Address 75 [facility] 7t [place] [address] Care Team Providers Care Tax Credit Leasing Consultant Name Role Phone Sherice John MD Primary Care Provider [phone] Encounter Details Date Type Department Care Team (Late st Contact Info) Description 12/22/2024 Orders Only [facility] 58 [place] [address] Sherice John MD 73 [place] [address] Social History Tobacco Use Types Packs/Day Years [...] Info) Description 06/15/2025 11:40 AM EDT Telemedicine [address] [address] Sherice John MD [address] [place] [address] 08/04/2025 9:30 AM EST Office Visit [address] [address] Sherice John MD [address] [place] [address] documented as of this encounter Procedures Procedure [...] on filedocumented in this encounter Care Teams Tax Credit Leasing Consultant Relationship Specialty Start Date End Date Sherice John MD [address] [place] [address] PCP - General Internal Medicine 08/08/22 documented as of this encounter
--- OUTSIDE RECORDS SUMMARY | 2025-05-04 09:22 | XMS_ITS | Encounter Summary ---
Author Organization [facility] Address [address] [place] [address] [address] [place] [address] Phone Care Team Providers Care Recreational Aide Name Role Phone Sherice John MD Primary Care Provider [phone] Deya Sotelo MD Unavailable Joni Deleon MD Unavailable [phone] Mikal Jones MD Unavailable Lulú Vizc[employer] Unavailable [phone] Encounter Details Date Type Department Care Team (Late st Contact Info) Description 09/26/2023 Procedure Pass [facility] [address] [facility], 5th Floor, [address] [place] [address] Social History Tobacco Use Types Packs/Day Years [...] PM EDT Office Visit [facility] 22 [place] [address] Rogelio Torrez DO 22 [place] [address] [email or web address] 12/10/2025 10:40 AM EDT Appointment [facility] 30 [place] [address] Lulú Vizcaino MBBS 30 [place] [address] [email or web address] 12/10/2025 11:40 AM EDT Office Visit [facility] 30 [place] [address] Lulú Vizcaino MBBS [address] [place] [address] [email or web address] [email or web address] 03/03/2026 8:30 AM EDT Telemedicine [facility] Cardiac Arrhythmia Service [address] [facility], 5th Floor, [address] [place] [address] Angel Domínguez MD 55 [facility] [address] [place] [address] [email or web address] documented as of this encounter Visit Diagnoses Not on filedocumented in this encounter Care Teams Recreational Aide Relationship Specialty Start Date End Date Sherice John MD [address] [place] [address] [email or web address] PCP - General Internal Medicine 03/08/18 Deya Sotelo MD [address] [address] [email or web address] Primary Oncologist Hematology and Oncology 11/27/2211/18 Joni Deleon MD [address] [place] [address] [place] [address] Pulmonary Disease 07/18/23 Mikal Jones MD [address] [place] [address] [address] [place] [address] Cardiology 07/23/23 Lulú Vizcaino MBBS [address] [place] [address] Center [address] [place] [address] [email or web address] [email or web address] Primary Oncologist Medical Oncology 11/29/23 documented as of this encounter Additional Source Comments The information contained in this document represents components of the legal health record. It is not the complete legal health record.[facility]
--- OUTSIDE RECORDS SUMMARY | 2025-05-04 09:22 | XMS_ITS | Encounter Summary ---
Author Organization [employer] Address 75 [facility] 7t [place] [address] Care Team Providers Care Database Administration Project Manager Name Role Phone Pauline John MD Primary Care Provider [phone] Reason for Visit * Reason Onset Date Comments Medication Problem 05/25/2023 Encounter Details Date Type Department Care Team (Late st Contact Info) Description 05/25/2023 Telephone [facility] MEDICAL 73 [place] [address] Pauline John MD 73 [place] [address] Medication Problem Social History Tobacco Use Types [...] 11:50 AM EDT Had a apt with ID on Sunday she was due to change medication she is taking not seeing any prescriptions in file. documented in this encounter Plan of Treatment Upcoming Encounters Date Type Department Care Team (Late st Contact Info) Description 06/15/2025 11:40 AM EDT Telemedicine [facility] 73 [place] [address] Pauline John MD [address] [place] [address] 08/04/2025 9:30 AM EST Office Visit [facility] 73 [place] [address] Pauline John MD [address] [place] [address] documented as of this encounter Visit Diagnoses Not on filedocumented in this encounter Care Teams Database Administration Project Manager Relationship Specialty Start Date End Date Pauline John MD 73 [place] [address] PCP - General Internal Medicine 08/08/22 documented as of this encounter
--- OUTSIDE RECORDS SUMMARY | 2025-05-04 09:22 | XMS_ITS | Encounter Summary ---
Author Organization [employer] Address 75 [facility] 7t [place] [address] Care Team Providers Care Manager Energy Name Role Phone Sherice John MD Primary Care Provider [phone] Encounter Details Date Type Department Care Team (Late st Contact Info) Description 05/14/2024 Orders Only [facility] 58 [place] [address] Sherice John MD 73 [place] [address] Social History Tobacco Use Types Packs/Day Years [...] Info) Description 06/15/2025 11:40 AM EDT Telemedicine [address] [address] Sherice John MD [address] [place] [address] 08/04/2025 9:30 AM EST Office Visit [address] [address] Sherice John MD [address] [place] [address] documented as of this encounter Procedures Procedure [...] filedocumented in this encounter Care Teams Manager Energy Relationship Specialty Start Date End Date Sherice John MD [address] [place] [address] PCP - General Internal Medicine 08/08/22 documented as of this encounter
--- OUTSIDE RECORDS SUMMARY | 2025-05-04 09:22 | XMS_ITS | Encounter Summary ---
Author Organization [facility] Address [address] [facility] [address] [place] [address] Phone Care Team Providers Care Tank Builder Name Role Phone Sherice John MD Primary Care Provider [phone] Joni Deleon MD Unavailable Mikal Jones MD Unavailable [phone] Lulú Vizcaino [facility] Unavailable Encounter Details Date Type Department Care Team (Late st Contact Info) Description 01/01/2024 Procedure Pass [facility] 32 [facility], 5th Floor, [address] [place] [address] Social History Tobacco Use Types Packs/Day Years [...] PM EDT Office Visit [facility] 22 [place] [address] Rogelio Torrez DO 22 [place] [address] [email or web address] 12/10/2025 10:40 AM EDT Appointment [facility] 30 [place] [address] Lulú Vizcaino MBBS 30 [place] [address] [email or web address] 12/10/2025 11:40 AM EDT Office Visit [facility] [place] 30 [place] [address] Lulú Vizcaino MBBS 30 [place] [address] [email or web address] 03/03/2026 8:30 AM EDT Telemedicine [facility] Cardiac Arrhythmia Service 32 [facility], 5th Floor, [address] [place] [address] Angel Domínguez MD 55 [facility] [address] [place] [address] [email or web address] .[email or web address] documented as of this encounter Visit Diagnoses Not on filedocumented in this encounter Care Teams Tank Builder Relationship Specialty Start Date End Date Sherice John MD [address] [place] [address] [email or web address] PCP - General Internal Medicine 03/08/18 Joni Deleon MD [address] [place] [address] [place] [address] Pulmonary Disease 07/18/23 Mikal Jones MD [address] [place] [address] [address] [place] [address] Cardiology 07/23/23 Lulú Vizcaino MBBS 2 [facility] [address] [place] [address] [email or web address] Primary Oncologist Medical Oncology 11/29/23 documented as of this encounter Additional Source Comments The information contained in this document represents components of the legal health record. It is not the complete legal health record.[facility]
--- OUTSIDE RECORDS SUMMARY | 2025-05-04 09:22 | XMS_ITS | Encounter Summary ---
Author Organization [facility] Address [address] [place] [address] Phone Care Team Providers Care Knapsack Sprayer Name Role Phone Sherice John MD Primary Care Provider Deya Sotelo MD Unavailable Joni Deleon MD Unavailable Mikal Jones MD Unavailable Lulú [facility] Unavailable [phone] Encounter Details Date Type Department Care Team (Latest Contact Info) Description 10/25/2023 Transcribe Orders Virtual Department 30 [place] [address] Sherice John MD [address] [place] [address] [email or web address] Breast screening (Primary Dx) Social History Tobacco Use Types [...] PM EDT Office Visit [facility] 22 [place] [address] Rogelio Torrez DO 22 [place] [address] [email or web address] 12/10/2025 10:40 AM EDT Appointment [facility] 30 [place] [address] Lulú Vizcaino MBBS 30 [place] [address] [email or web address] 12/10/2025 11:40 AM EDT Office Visit [facility] [place] 30 [place] [address] Lulú Vizcaino MBBS [address] [place] [address] [email or web address] 03/03/2026 8:30 AM EDT Telemedicine [facility] Cardiac Arrhythmia Service 32 [facility], 5th Floor, [address] [place] [address] Angel Domínguez MD 55 [facility] [address] [place] [address] [email or web address] documented as of [...] be notified of the results and recommendations. us Sherice John MD IMG MG EXAMS Final Result documented in this encounter Visit Diagnoses Diagnosis Breast screening- Primary Breast screening, unspecified Breast screening Breast screening, unspecified documented in this encounter Care Teams Knapsack Sprayer Relationship Specialty Start Date End Date Sherice John MD [address] [place] [address] PCP - General Internal Medicine 03/08/18 Deya Sotelo MD [address] [facility] [address] [address] [email or web address] Primary Oncologist Hematology and Oncology 11/27/2211/18 Joni Deleon MD [address] [place] [address] [place] [address] Pulmonary Disease 07/18/23 Mikal Jones MD 2 [facility] Center [address] [place] [address] Cardiology 07/23/23 Lulú Vizcaino MBBS 2 [facility] Center [address] [place] [address] [email or web address] Primary Oncologist Medical Oncology 11/29/23 documented as of this encounter Additional Source Comments The information contained in this document represents components of the legal health record. It is not the complete legal health record.[facility]
--- OUTSIDE RECORDS SUMMARY | 2025-05-04 09:22 | XMS_ITS | Encounter Summary ---
Author Organization [employer] Address 75 [facility] 7t [place] [address] Care Team Providers Care Reel Tender Name Role Phone Sherice John MD Primary Care Provider [phone] Encounter Details Date Type Department Care Team (Late st Contact Info) Description 10/01/2023 Orders Only [place] [facility] 58 [place] [address] Sherice John MD 73 [place] [address] Social History Tobacco Use Types Packs/Day Years [...] Info) Description 06/15/2025 11:40 AM EDT Telemedicine [facility] MEDICAL [address] [place] [address] Sherice John MD [address] [place] [address] 08/04/2025 9:30 AM EST Office Visit [address] [address] Sherice John MD [address] [place] [address] documented as of this encounter Procedures Procedure Name Priority Date/Time Associated Diagnosis Comments CBC WITH AUTO DIFFERENTIAL Routine 10/01/2023 documented in this encounter Results * CBC auto differential (10/01/2023) Blood Venous blood specimen / Unknown Sherice John MD LAB BLOOD ORDERABLES Edited Resu lt - Final documented in this encounter Visit Diagnoses Not on filedocumented in this encounter Care Teams Reel Tender Relationship Specialty Start Date End Date Sherice John MD [address] [place] [address] PCP - General Internal Medicine 08/08/22 documented as of this encounter
--- OUTSIDE RECORDS SUMMARY | 2025-05-04 09:22 | XMS_ITS | Encounter Summary ---
Author Organization [employer] Address 75 [facility] 7t [place] [address] Care Team Providers Care Seismograph Helper Name Role Phone Sherice John MD Primary Care Provider [phone] Encounter Details Date Type Department Care Team (Late st Contact Info) Description 01/07/2024 Orders Only [facility] 58 [place] [address] Sherice John MD 73 [place] [address] Social History Tobacco Use Types Packs/Day Years [...] Description 06/15/2025 11:40 AM EDT Telemedicine [address] [address] Sherice John MD [address] [place] [address] 08/04/2025 9:30 AM EST Office Visit [address] [address] Sherice John MD [address] [place] [address] documented as of this encounter Procedures Procedure [...] on filedocumented in this encounter Care Teams Seismograph Helper Relationship Specialty Start Date End Date Sherice John MD [address] [place] [address] PCP - General Internal Medicine 08/08/22 documented as of this encounter
--- OUTSIDE RECORDS SUMMARY | 2025-05-04 09:22 | XMS_ITS | Encounter Summary ---
Author Organization [employer] Address 75 [facility] 7t [place] [address] Care Team Providers Care Test Designer Name Role Phone Sherice John MD Primary Care Provider [phone] Encounter Details Date Type Department Care Team (Late st Contact Info) Description 12/19/2023 Orders Only [facility] 58 [place] [address] Sherice John MD 73 [place] [address] Social History Tobacco Use Types Packs/Day Years [...] Info) Description 06/15/2025 11:40 AM EDT Telemedicine [address] [address] Sherice John MD [address] [place] [address] 08/04/2025 9:30 AM EST Office Visit [address] [address] Sherice John MD [address] [place] [address] documented as of this encounter Procedures Procedure [...] on filedocumented in this encounter Care Teams Test Designer Relationship Specialty Start Date End Date Sherice John MD [address] [place] [address] PCP - General Internal Medicine 08/08/22 documented as of this encounter
--- OUTSIDE RECORDS SUMMARY | 2025-05-04 09:23 | XMS_ITS | Encounter Summary ---
Author Organization [employer] Address [address] [facility] 7t [place] [address] Care Team Providers Care Contact And Service Clerks Supervisor Name Role Phone Sherice John MD Primary Care Provider [phone] Reason for Visit * Reason Onset Date Comments Prior Authorization 05/04/2025 pregabalin Encounter Details Date Type Department Care Team (Late st Contact Info) Description 05/04/2025 Telephone [facility] MEDICAL 73 [place] [address] Sherice John MD 73 [place] [address] Prior Authorization (pregabalin) Social History Tobacco Use Types Packs/Day Years [...] degree (e.g., MA, MS, Luis Eduardo, MEd, COMMUNICATION SKILLS INSTRUCTOR, [employer]) 02/17/2025 Comments Unknown Sex and Gender Information Value Date Recorded Sex Assigned at Female 08/01/2022 12:40 PM EST Legal Sex Female 8:36 PM EDT Gender Identity Female 08/01/2022 12:40 PM EST Sexual Orientation Straight 10/04/2022 3: 13 PM EST documented as of this encounter Miscellaneous Notes * Telephone Encounter - Raquel Roldan LPN - 05/04/2025 8:53 AM EDT Outcome Approved today by [employer] NCPDP 2017 Your request has been approved Effective Date: 08/20/2024 Authorization Expiration Date: 05/04/2026 * Telephone Encounter - Raquel Roldan LPN - 05/04/2025 8:38 AM EDT Pa submitted for pregabalin via cm. documented in this encounter Plan of Treatment Upcoming Encounters Date Type Department Care Team (Late st Contact Info) Description 06/15/2025 11:40 AM EDT Telemedicine [facility] MEDICAL 73 [place] [address] Sherice John MD 73 [place] [address] 08/04/2025 9:30 AM EST Office Visit [facility] MEDICAL [address] [place] [address] Sherice John MD 73 [place] [address] documented as of this encounter Visit Diagnoses Not on filedocumented in this encounter Care Teams Contact And Service Clerks Supervisor Relationship Specialty Start Date End Date Sherice John MD 73 [place] [address] PCP - General Internal Medicine 08/08/22 documented as of this encounter
--- OUTSIDE RECORDS SUMMARY | 2025-05-04 09:23 | XMS_ITS | Encounter Summary ---
Author Organization [facility] Address [address] [facility] [address] [place] [address] Phone Care Team Providers Care Station Usher Name Role Phone Sherice John MD Primary Care Provider [phone] Joni Deleon MD Unavailable [phone] Mikal Jones MD Unavailable [phone] Lulú Vizcaino [facility] Unavailable Encounter Details Date Type Department Care Team (Late st Contact Info) Description 04/27/2025 Procedure Pass [facility] Holter Lab [address] [facility], 5th Floor, [address] [place] [address] Social History Tobacco Use Types Packs/Day Years [...] PM EDT Office Visit [facility] [address] [place] [address] Rogelio Torrez DO 22 [place] [address] 12/10/2025 10:40 AM EDT Appointment [facility] 30 [place] [address] Lulú Vizcaino MBBS [address] [place] [address] [email or web address] 12/10/2025 11:40 AM EDT Office Visit [facility] [place] 30 [place] [address] Lulú Vizcaino MBBS 30 [place], [place] [id number] [email or web address] 03/03/2026 8:30 AM EDT Telemedicine [facility] Cardiac Arrhythmia Service [address] [facility], 5th Floor, [address] [place] [address] Angel Domínguez MD [address] [place] [address] [email or web address] documented as of this encounter Visit Diagnoses Not on filedocumented in this encounter Care Teams Station Usher Relationship Specialty Start Date End Date Sherice John MD [address] [place] [address] [email or web address] PCP - General Internal Medicine 03/08/18 Joni Deleon MD [address] [place] [address] [place] [address] Pulmonary Disease 07/18/23 Mikal Jones MD [address] [place] [address] [address] [place] [address] Cardiology 07/23/23 Lulú Vizcaino MBBS [address] [place] [address] [address] [place] [address] [email or web address] Primary Oncologist Medical Oncology 11/29/23 documented as of this encounter Additional Source Comments The information contained in this document represents components of the legal health record. It is not the complete legal health record.[facility]
--- OUTSIDE RECORDS SUMMARY | 2025-05-04 09:23 | XMS_ITS | Encounter Summary ---
Author Organization [employer] Address [address] [facility] [address] 7t [place] [address] Care Team Providers Care Industrial Psychology Professor Name Role Phone Sherice John MD Primary Care Provider [phone] Encounter Details Date Type Department Care Team (Latest Contact Info) Description 05/01/2025 Travel Social History Tobacco Use Types Packs/Day [...] degree (e.g., DEVENDRA, MS, Luis Eduardo, MEd, FASHION DESIGN PROFESSOR, MARLIN) 02/17/2025 Comments Unknown Sex and Gender [...] Info) Description 06/15/2025 11:40 AM EDT Telemedicine [facility] 73 [place] [address] Sherice John MD [address] [place] [address] 08/04/2025 9:30 AM EST Office Visit [address] [address] Sherice John MD [address] [place] [address] documented as of this encounter Visit Diagnoses Not on filedocumented in this encounter Care Teams Industrial Psychology Professor Relationship Specialty Start Date End Date Sherice John MD [address] [place] [address] PCP - General Internal Medicine 08/08/22 documented as of this encounter
--- OUTSIDE RECORDS SUMMARY | 2025-05-04 09:23 | XMS_ITS | Encounter Summary ---
Author Organization [facility] Address [address] [place] [address] [place] [address] Phone Care Team Providers Care Aircraft Engineer Name Role Phone Sherice John MD Primary Care Provider Joni Deleon MD Unavailable Mikal Jones MD Unavailable Lulú Vizcaino [facility] Unavailable [phone] Encounter Details Date Type Department Care Team (Latest Contact Info) Description 11/23/2024 Transcribe Orders Virtual Department 30 [place] [address] Sherice John MD 73 [place] [address] [email or web address] Acute midline low back pain without sciatica [...] PM EDT Office Visit [facility] 22 [place] [address] Rogelio Torrez DO 22 [place] [address] 12/10/2025 10:40 AM EDT Appointment [facility] [address] [place] [address] Lulú Vizcaino MBBS [address] [place] [address] [email or web address] 12/10/2025 11:40 AM EDT Office Visit [facility] 30 [place] [address] Lulú Vizcaino MBBS [address] [place] [address] [email or web address] 03/03/2026 8:30 AM EDT Telemedicine [facility] Cardiac Arrhythmia Service [address] [facility], 5th Floor, [address] [place] [address] Angel Domínguez MD [address] [facility] [address] [place] [address] [email or web address] Scheduled Orders Name Type Priority Associated Diagnoses Orde r Schedule XR Lumbar Spine Imaging Routine Acute midline low back pain without sciatica Expected: 11/23/2024, Expires: 11/23/2025 documented as of this encounter Visit Diagnoses Diagnosis Acute midline low back pain without sciatica- Primary documented in this encounter Care Teams Aircraft Engineer Relationship Specialty Start Date End Date Sherice John MD [address] [place] [address] [email or web address] PCP - General Internal Medicine 03/08/18 Joni Deleon MD [address] [place] [address] [place] [address] Pulmonary Disease 07/18/23 Mikal Jones MD [address] [place] [address] Center [address] [place] [address] Cardiology 07/23/23 Lulú Vizcaino MBBS [address] [place] [address] Center [address] [place] [address] [email or web address] Primary Oncologist Medical Oncology 11/29/23 documented as of this encounter Additional Source Comments The information contained in this document represents components of the legal health record. It is not the complete legal health record.[facility]
--- OUTSIDE RECORDS SUMMARY | 2025-05-04 09:23 | XMS_ITS | Encounter Summary ---
Author Organization [facility] Address [address] [place] [address] Phone Care Team Providers Care Sr. Media Manager Name Role Phone Sherice John MD Primary Care Provider Joni Deleon MD Unavailable [phone] Mikal Jones MD Unavailable Lulú Vizcaino [facility] Unavailable Reason for Referral * Outpatient Procedure - Closed Specialty Diagnoses / Procedures Referred By Tyler yeung Referred To Contact Radiology Diagnoses Syncope, unspecified syncope type Procedures US Carotid Duplex Complete (Bilateral) Sherice John MD Phone: tel: fax: mailto:[email or web address] Referral ID Status Reason Start Date Expiration Date Visits Re quested Visits Authorized [id number] Closed 11/03/2024 11/03/2025 1 1 Encounter Details Date Type Department Care Team (Latest Contact Info) Description 11/03/2024 Transcribe Orders Virtual Department 30 [place] [address] Sherice John MD 73 [place] [address] Syncope, unspecified syncope type (Primary Dx) Social [...] PM EDT Office Visit [facility] [address] [place] [address] Rogelio Torrez DO [address] [place] [address] 12/10/2025 10:40 AM EDT Appointment [facility] 30 [place] [address] Lulú Vizcaino MBBS 30 [place] [address] [email or web address] 12/10/2025 11:40 AM EDT Office Visit [facility] [place] 30 [place] [address] Lulú Vizcaino MBBS 30 [place] [address] [email or web address] 03/03/2026 8:30 AM EDT Telemedicine [facility] Cardiac Arrhythmia Service [address] [facility], 5th Floor, [address] [place] [address] Angel Domínguez MD [address] [facility] [address] [place] [address] [email or web address] documented as of this encounter Results [...] type documented in this encounter Care Teams Sr. Media Manager Relationship Specialty Start Date End Date Sherice John MD [address] [place] [address] [email or web address] PCP - General Internal Medicine 03/08/18 Joni Deleon MD [address] [place] [address] [place] [address] Pulmonary Disease 07/18/23 Mikal Jones MD [facility] [address] [place] [address] Cardiology 07/23/23 Lulú Vizcaino MBBS [address] [facility] [address] [place] [address] [email or web address] Primary Oncologist Medical Oncology 11/29/23 documented as of this encounter Additional Source Comments The information contained in this document represents components of the legal health record. It is not the complete legal health record.[facility]
--- OUTSIDE RECORDS SUMMARY | 2025-05-04 09:23 | XMS_ITS | Encounter Summary ---
Author Organization [employer] Address [address] [facility] 7t [place] [address] Care Team Providers Care Patrol Driver Name Role Phone Sherice John MD Primary Care Provider [phone] Encounter Details Date Type Department Care Team (Late st Contact Info) Description 05/02/2025 Orders Only [facility] [address] [place] [address] PcpGisela Unassigned Social History Tobacco Use Types Packs/Day Years [...] degree (e.g., DEVENDRA, MS, Luis Eduardo, MEd, BUSINESS MACHINE MECHANIC, MARLIN) 02/17/2025 Comments Unknown Sex and Gender [...] Description 06/15/2025 11:40 AM EDT Telemedicine [address] [address] Sherice John MD [address] [place] [address] 08/04/2025 9:30 AM EST Office Visit [address] [address] Sherice John MD [address] [place] [address] documented as of this encounter Procedures Procedure Name Priority Date/Time Associated Diagnosis Comments CT ANGIOGRAM CHEST INTERPRETATION Routine 04/14/2025 9:52 AM EDT documented in this encounter Results * CT angiogram chest interpretation (04/14/2025 9:52 AM EDT) Anatomical Region Laterality Modality Computed Tomogra phy [facility] Pcp IMG CT PROCEDURES Final Result documented in this encounter Visit Diagnoses Not on filedocumented in this encounter Care Teams Patrol Driver Relationship Specialty Start Date End Date Sherice John MD [address] [place] [address] PCP - General Internal Medicine 08/08/22 documented as of this encounter
--- OUTSIDE RECORDS SUMMARY | 2025-05-04 09:23 | XMS_ITS | Encounter Summary ---
Author Organization [facility] Address [address] [place] [address] [place] [address] Phone Care Team Providers Care Washing And Screening Plant Supervisor Name Role Phone Sherice John MD Primary Care Provider [phone] Joni Deleon MD Unavailable Mikal Jones MD Unavailable [phone] Lulú Vizcaino [facility] Unavailable Encounter Details Date Type Department Care Team (Late st Contact Info) Description 09/24/2024 Procedure Pass [facility], [address] [address] Social History Tobacco Use Types Packs/Day Years [...] PM EDT Office Visit [facility] [address] [place] [address] Rogelio Torrez DO 22 [place] [address] 12/10/2025 10:40 AM EDT Appointment [facility] 30 [place] [address] Lulú Vizcaino MBBS 30 [place] [address] [email or web address] 12/10/2025 11:40 AM EDT Office Visit [facility] [place] 30 [place] [address] Lulú Vizcaino MBBS [address] [place] [address] [email or web address] 03/03/2026 8:[address] [facility] Cardiac Arrhythmia Service 32 [facility], 5th Floor, [address] [place] [address] Angel Domínguez MD [address] [place] [address] [email or web address] documented as of this encounter Visit Diagnoses Not on filedocumented in this encounter Care Teams Washing And Screening Plant Supervisor Relationship Specialty Start Date End Date Sherice John MD [address] [place] [address] [email or web address] PCP - General Internal Medicine 03/08/18 Joni Deleon MD [address] [place] [address] [place] [address] Pulmonary Disease 07/18/23 Mikal Jones MD [address] [facility] [address] [place] [address] Cardiology 07/23/23 Lulú Vizcaino MBBS [address] [facility] [address] [place] [address] [email or web address] Primary Oncologist Medical Oncology 11/29/23 documented as of this encounter Additional Source Comments The information contained in this document represents components of the legal health record. It is not the complete legal health record.[facility]
[2025-05-04 10:08] LABS: Anion Gap 13 (12-20); Blood Urea Nitrogen 18 mg/dL (9-16); Carbon Dioxide 27 mmol/L (22-29); Chloride 107 mmol/L (96-108); Estimated Glomerular Filt Rate > 60; Potassium 4.0 mmol/L (3.3-5.1); Sodium 143 mmol/L (135-145)
== END 2025-05-04 08:20 | disposition home or self-care (01) ==
LOC: HO.US 08:19
PROVIDERS: PCP Internal Medicine; Visit Provider Internal Medicine Nephrology
DX: N13.30 Unspecified hydronephrosis (principal)
CPT/HCPCS: 36415; 76775; 80051; 82565; 84520

== ENCOUNTER → 2025-05-04 08:20 | Outpatient (BNV) | payer MEDICARE, OTHER, SELFPAY | PROVIDERS: PCP Internal Medicine; Visit Provider Radiology Diagnostic Radiology | DX: Z87.448 Personal history of other diseases of urinary system (principal) | CPT/HCPCS: 76775 ==

== ENCOUNTER 2025-05-13 11:17 | Outpatient (AMB) | payer MEDICARE, OTHER, SELFPAY ==
--- OUTSIDE RECORDS SUMMARY | 2020-05-27 11:40 | XMS_ITS | Encounter Summary ---
Author Organization [facility] Address [address] [place] [address] [place] [address] Phone Care Team Providers Care Software Applications Specialist Name Role Phone Sherice John MD Primary Care Provider [phone] Encounter Details Date Type Department Care Team (Late st Contact Info) Description 05/27/2020 11:40 AM EDT Hospital Encounter [facility] Urgent Care 12 [place] [address] Guido Frankel PA [address] [place] [address] [email or web address] g Social History Tobacco Use Types Packs/Day [...] 6:23 PM EDT Tami Jorge RN * [place] Suicide Severity Rating Scale (Screener/Recent Self-Report) Question [...] Care Team (Late st Contact Info) Description 05/21/2025 1:00 PM EDT Office Visit [facility] [address] [place] [address] Rogelio Torrez, 22 [place] [address] 12/10/2025 10:40 AM EDT Appointment [facility] 30 [place] [address] Lulú Vizcaino, JORGE 30 [place] [address] [email or web address] 12/10/2025 11:40 AM EDT Office [facility] [place] 30 [place] [address] Lulú Vizcaino MBBS 30 [place] [address] [email or web address] 03/03/2026 8:30 AM EDT Telemedicine [facility] [place] [place] 32 [facility], 5th Floor, [address] [place] [address] Angel Domínguez MD 55 [facility] [address] [place] [address] [email or web address] documented as of this encounter Procedures Procedure [...] Nondisplaced distal phalangeal fracture or fractures POS [id number] Narrative 05/27/2020 11:57 AM EDT 3 views. [...] Nondisplaced distal phalangeal fracture or fractures POS [id number] Guido MANZO IMG XR LOWER EXTREMITY Hailey [...] documented as of this encounter Care Teams Software Applications Specialist Relationship Specialty Start Date End Date Sherice John MD [address] [place] [address] [email or web address] PCP - General Internal Medicine 03/08/18 documented as of this encounter Additional Source Comments The information contained in this document represents components of the legal health record. It is not the complete legal health record.[facility]
--- OUTSIDE RECORDS SUMMARY | 2020-06-01 10:45 | XMS_ITS | Encounter Summary ---
Author Organization [facility] Address [address] [place] [address] [place] [address] Phone Care Team Providers Care Ironer Or Presser Name Role Phone Sherice John MD Primary Care Provider [phone] Encounter Details Date Type Department Care Team (Late st Contact Info) Description 06/01/2020 10:45 AM EDT Hospital Encounter [facility] Ur[facility] Care 12 [place] [address] [place] PROBATION SUPERVISOR 12 [place] [address] [email or web address] Social History Tobacco Use Types Packs/Day Years [...] 6:23 PM EDT Tami Jorge RN * [place] Suicide Severity Rating Scale (Screener/Recent Self-Report) Question [...] 1:00 PM EDT Office Visit [facility] [address] [place] [address] Rogelio Torrez DO 22 [place] [address] 12/10/2025 10:40 AM EDT Appointment [facility] 30 [place] [address] Lulú Vizcaino, JORGE 30 [place] [address] [email or web address] 12/10/2025 11:40 AM EDT Office Visit [facility] [place] 30 [place] [address] Lulú Vizcaino, JORGE 30 [place] [address] [email or web address] 03/03/2026 8:30 AM EDT Telemedicine [facility] [place]iac Arrhythmia Service 32 [facility], 5th Floor, [address] [place] [address] Angel Domínguez MD 55 [facility] [address] [place] [address] [email or web address] documented as of this encounter Procedures [...] AM EDT No acute bony abnormality. POS [id number] Narrative 06/01/2020 11:24 AM EDT A total of 3 views reveal no fracture or other significant bony abnormality. No abnormal pleural-based density is apparent. Procedure Note Angel Garcia MD - 06/01/2020 A total of 3 views reveal no fracture or other significant bonyabnormality. No abnormal pleural-based density is apparent. IMPRESSION: No acute bony abnormality. POS [id number] us [place] PROBATION SUPERVISOR IMG XR CHEST Final Resul t documented [...] documented as of this encounter Care Teams Ironer Or Presser Relationship Specialty Start Date End Date Sherice John MD [address] [place] [address] [email or web address] PCP - General Internal Medicine 03/08/18 documented as of this encounter Additional Source Comments The information contained in this document represents components of the legal health record. It is not the complete legal health record.[facility]
--- OUTSIDE RECORDS SUMMARY | 2021-04-29 14:22 | XMS_ITS | Encounter Summary ---
Author Organization [facility] Address [address] [place] [address] [place] [address] Phone Care Team Providers Care Border Patrol Agent Name Role Phone Sherice John MD Primary Care Provider [phone] Encounter Details Date Type Department Care Team (Late st Contact Info) Description 04/29/2021 2:22 PM EDT Hospital Encounter [facility] [address] [place] [address] Francisca Baldwin PA 12 [place] [address] [email or web address] Social History Tobacco Use Types Packs/Day Years [...] 6:23 PM EDT Tami Jorge RN * [place] Suicide Severity Rating Scale (Screener/Recent Self-Report) Question [...] 1:00 PM EDT Office Visit [facility] [address] [place] [address] Rogelio Torrez, 22 [place] [address] 12/10/2025 10:40 AM EDT Appointment [facility] 30 [place] [address] Lulú Vizcaino, JORGE 30 [place] [address] [email or web address] 12/10/2025 11:40 AM EDT Office Visit [facility] [place] 30 [place] [address] Lulú Vizcaino, JORGE 30 [place] [address] [email or web address] 03/03/2026 8:[address] [facility] Cardiac Arrhythmia Service 32 [facility], 5th Floor, [address] [place] [address] Angel Domínguez MD 55 [facility] [address] [place] [address] [email or web address] documented as of this encounter Procedures Procedure [...] tissueswelling. IMPRESSION: No fracture or dislocation. ATTESTATION: I, Dorinda Leonard as teaching physician, have reviewed theimages for [...] documented as of this encounter Care Teams Border Patrol Agent Relationship Specialty Start Date End Date Sherice John MD [address] [place] [address] [email or web address] PCP - General Internal Medicine 03/08/18 documented as of this encounter Additional Source Comments The information contained in this document represents components of the legal health record. It is not the complete legal health record.[facility]
--- OUTSIDE RECORDS SUMMARY | 2021-12-21 12:40 | XMS_ITS | Encounter Summary ---
Author Organization [facility] Address [address] [place] [address] [place] [address] Phone Care Team Providers Care Black Belt Name Role Phone Sherice John MD Primary Care Provider [phone] Encounter Details Date Type Department Care Team (Late st Contact Info) Description 12/21/2021 12:40 PM EDT Hospital Encounter [facility] Ur[facility] Care [address] [place] [address] [place] TOILET AND LAUNDRY SOAP SUPERVISOR 12 [place] [address] [email or web address] Social History Tobacco Use [...] 6:23 PM EDT Tami Jorge RN * [place] Suicide Severity Rating Scale (Screener/Recent Self-Report) Question [...] 1:00 PM EDT Office Visit [facility] [address] [place] [address] Rogelio Torrez, 22 [place] [address] 12/10/2025 10:40 AM EDT Appointment [facility] 30 [place] [address] Lulú Vizcaino, JORGE 30 [place] [address] [email or web address] 12/10/2025 11:40 AM EDT Office Visit [facility] [place] 30 [place] [address] Lulú Vizcaino MBBS 30 [place] [address] [email or web address] 03/03/2026 8:30 AM EDT Telemedicine [facility] Cardiac Arrhythmia Service 32 [facility], 5th Floor, [address] [place] [address] Angel Domínguez MD 55 [facility] [address] [place] [address] [email or web address] documented as of this encounter Procedures [...] tissues. IMPRESSION: No acute osseous abnormality. [place] Sergio TOILET AND LAUNDRY SOAP SUPERVISOR IMG XR LOWER EXTREMITY Hailey l Result [...] documented as of this encounter Care Teams Black Belt Relationship Specialty Start Date End Date Sherice John MD [address] [place] [address] [email or web address] PCP - General Internal Medicine 03/08/18 documented as of this encounter Additional Source Comments The information contained in this document represents components of the legal health record. It is not the complete legal health record.[facility]
--- OUTSIDE RECORDS SUMMARY | 2022-10-12 12:54 | XMS_ITS | Encounter Summary ---
Author Organization [facility] Address [address] [place] [address] [place] [address] Phone Care Team Providers Care Radiographer Mammographer Name Role Phone Sherice John MD Primary Care Provider [phone] Encounter Details Date Type Department Care Team (Late st Contact Info) Description 10/12/2022 11:54 AM EST Hospital Encounter [facility] 12 [place] [address] Imelda Anders FNP 12 [place] [address] [email or web address] Social History Tobacco Use Types Packs/Day Years [...] 6:23 PM EDT Tami Jorge RN * [place] Suicide Severity Rating Scale (Screener/Recent Self-Report) Question [...] 1:00 PM EDT Office Visit [facility] 22 [place] [address] Rogelio Torrez DO 22 [place] [address] 12/10/2025 10:40 AM EDT Appointment [facility] 30 [place] [address] Lulú Vizcaino, JORGE 30 [place] [address] [email or web address] 12/10/2025 11:40 AM EDT Office Visit [facility] [place] 30 [place] [address] Lulú Vizcaino MBBS 30 [place] [address] [email or web address] 03/03/2026 8:30 AM EDT Telemedicine [facility]iac [facility]rhythmia Service 32 [facility], 5th Floor, [address] [place] [address] Angel Domínguez MD 55 [facility] [address] [place] [address] [email or web address] documented as of this encounter Procedures Procedure [...] may represent evolving pneumonia oratelectasis. Imelda Anders SCOOP MACHINE OPERATOR IMG XR CHEST Final Resul t documented in this encounter Visit Diagnoses Not on filedocumented in this encounter Additional Health Concerns Infection Onset Date Last Indicated Resolved Time CoV-Risk 10/12/2022 10/12/2022 10/23/2022 1:22 AM EST CoV-Risk 10/25/2022 10/25/2022 11/05/2022 1:22 AM EDT CoV-Risk 11/24/2022 11/24/2022 12/05/2022 1:22 AM EDT documented as of this encounter Care Teams Radiographer Mammographer Relationship Specialty Start Date End Date Sherice John MD [address] [place] [address] [email or web address] PCP - General Internal Medicine 03/08/18 documented as of this encounter Additional Source Comments The information contained in this document represents components of the legal health record. It is not the complete legal health record.[facility]
--- OUTSIDE RECORDS SUMMARY | 2022-10-25 14:17 | XMS_ITS | Encounter Summary ---
Author Organization [facility] Address [address] [facility] [address] [place] [address] Phone Care Team Providers Care Warehouse Shipping Clerk Name Role Phone Sherice John MD Primary Care Provider [phone] Encounter Details Date Type Department Care Team (Late st Contact Info) Description 10/25/2022 1:17 PM [facility] Hospital Encounter [facility] 12 [place] [address] Chaitanya Hall PA-C [address] [place] [address] [email or web address] Social History Tobacco Use Types Packs/Day Years [...] 6:23 PM EDT Tami Jorge RN * [place] Suicide Severity Rating Scale (Screener/Recent Self-Report) Question [...] PM EDT Office Visit [facility] 22 [place] [address] [place] [address] 12/10/2025 10:40 AM EDT Appointment [facility] 30 [place] [address] Lulú Vizcaino, JORGE 30 [place] [address] [email or web address] 12/10/2025 11:40 AM EDT Office Visit [facility] [place] 30 [place] [address] Lulú Vizcaino MBBS 30 [place] [address] [email or web address] 03/03/2026 8:30 AM EDT Telemedicine [facility] Cardiac Arrhythmia Service 32 [facility], 5th Floor, [address] [place] [address] Angel Domínguez MD 55 [facility] [address] [place] [address] [email or web address] documented as of this encounter Procedures [...] documented as of this encounter Care Teams Warehouse Shipping Clerk Relationship Specialty Start Date End Date Sherice John MD [address] [place] [address] [email or web address] PCP - General Internal Medicine 03/08/18 documented as of this encounter Additional Source Comments The information contained in this document represents components of the legal health record. It is not the complete legal health record.[facility]
--- NOTE | 2025-05-13 11:34 | HO.NEPHOV_ITS ---
Vital Signs 05/13/25 11:41 Height 5 ft 4 in Weight 171 lb 8 oz BMI 29.4 BP 110/60 Blood Pressure Location Rt brachial Position Sitting Pulse 64 Pulse Source Pulse Oximeter Pulse Oximetry (%) 92 Oxygen Delivery Method Room Air Intake Visit Reasons: 2mon f/u w/labs-Conf Professor Of English Required: No Accompanied by: Self / Same As Patient Allergies hydromorphone (From Dilaudid) Allergy (Severe, Verified 05/13/25 11:40) Confusion Sulfa Drugs Allergy (Severe, Uncoded 02/16/25 10:06) Rash HPI Comments Details: I had the pleasure of seeing in follow up for hydronephrosis. She is a 75 year woman who has H/O shortness of breath for the last several years who a full cardiac evaluation in addition to seeing a pulmonary physician regularly. She had an echocardiogram demonstrating pulmonary hypertension for which she was seen in [place] for further care. She was later found to have pulmonary emboli. She also had been on CPAP. The patient started on Eliquis. Echocardiogram afterwards demonstrated a moderate amount of pulmonary hypertension. She also has been having back issues for which she had undergone MRI of the back which showed B/L hydronephrosis. She has no flank pain, recurrent UTI, hematuria, renal dysfunction, H/O UPJ obstruction, symptoms suggestive of renal calculi ( Has H/O renal calculi) or proteinuria. Her BP has been at goal. [facility] Medical History (Updated 05/13/25 @ 11:38 by Naman Wooten MD) Chest pain Premature ventricular contraction Bradycardia SOB (shortness of breath) Palpitations Dilated cardiomyopathy Mitral regurgitation Aortic atherosclerosis Vitamin D deficiency CAD (coronary artery disease) Restless leg syndrome Migraine Nephrolithiasis Cataract Depression Hiatal hernia GERD (gastroesophageal reflux disease) Oxygen dependent On anticoagulant therapy Elevated cholesterol Atrial fibrillation HTN (hypertension) On home oxygen therapy Systolic murmur Insomnia CHF (congestive heart failure) JACKIE (obstructive sleep apnea) Asthma Pulmonary hypertension Pulmonary emboli Dyspnea Surgical History Hx of cataract extraction History of esophagogastroduodenoscopy (EGD) H/O colonoscopy Hx of lithotripsy History of total bilateral knee replacement (TKR) Social History Are you a primary care partner to a significant other at home: No Do you presently have visiting nurse or other home services: No Patient Tobacco Use Status: Never used Tobacco Review of Systems Const All systems reviewed & are unremarkable except as noted in HPI and below Physical Exam Const General: comfortable and no acute distress Orientation/consciousness: patient oriented x3 HEENT Head: Yes normocephalic Mouth: Normal oral and palatal mucosa present Eyes EOM: EOMs intact bilaterally Neck Neck: Yes supple Resp Auscultation: clear to auscultation bilaterally Cardio Jugular venous distension: no JVD Rate: regular rate GI Palpation (GI): Soft to palpation Auscultation: normal bowel sounds General: Yes no CVA tenderness Back/Spine/Pelvis Back: no CVA tenderness Skin General skin exam: no rashes or lesions noted Neuro General: patient oriented x3 and moves all extremities Extrem General: Yes no pedal edema Results Reviewed Nephrology Results: Hgb, (12.0-16.0) 13.0 g/dl 04/06/25 WBC, (4.8-10.8) 6.2 X10*3/uL 04/06/25 Plt Count, (160-400) 144 X10*3/uL L 04/06/25 Sodium, (135-145) 143 mmol/L 05/04/25 Potassium, (3.3-5.1) 4.0 mmol/L 05/04/25 Chloride, (96-108) 107 mmol/L 05/04/25 Carbon Dioxide, (22-29) 27 mmol/L 05/04/25 BUN, (9-16) 18 mg/dL H 05/04/25 Creatinine, (0.5-1.4) 0.78 mg/dL 05/04/25 Calcium, (8.4-10.2) 8.4 mg/dL Δ 04/06/25 Renal US 05/04/25 Assessment & Plan Assessment & Plan (1) HTN (hypertension): Code(s): I10 - Essential (primary) hypertension Category: Medical Qualifiers: Hypertension type: primary hypertension Qualified Code(s): I10 - Essential (primary) hypertension (2) Hydronephrosis: Code(s): N13.30 - Unspecified hydronephrosis Category: Medical Qualifiers: Hydronephrosis type: unspecified Qualified Code(s): N13.30 - Unspecified hydronephrosis Plan Had incidental finding of B/L hydronephrosis Recent scan- No hydronephrosis No H/O pelvic tumors or neurogenic bladder No H/O flank pain, hematuria, proteinuria Known to have hypertension but controlled No H/O UPJ obtruction, PKD, Diabetic Kidney disease No reason to suspect inflitrative renal disease Renal function normal. Labs reviewed Answered all questions and F/U given Orders: Orders Protein Creatinine Ratio, Ur 10 Months I10 - Essential (primary) hypertension, N13.30 - Unspecified hydronephrosis Electrolytes 10 Months I10 - Essential (primary) hypertension, N13.30 - Unspecified hydronephrosis Creatinine 10 Months I10 - Essential (primary) hypertension, N13.30 - Unspecified hydronephrosis Blood Urea Nitrogen 10 Months I10 - Essential (primary) hypertension, N13.30 - Unspecified hydronephrosis Coding Level of Care Code Est Pt Level 4 (85763) Diagnoses Primary hypertension I10 Hypertension type: primary hypertension Hydronephrosis, unspecified hydronephrosis type N13.30 Hydronephrosis type: unspecified
[2025-05-13 11:41] VITALS: BP 110/60; PULSE 64; O2SAT 92; BMI 29.4
--- OUTSIDE RECORDS SUMMARY | 2025-05-13 14:28 | XMS_ITS | Encounter Summary ---
Author Organization [facility] Address [address] [place] [address] Phone Care Team Providers Care Special Education Curriculum Specialist Name Role Phone Sherice John MD Primary Care Provider [phone] Deya Sotelo MD Unavailable Joni Deleon MD Unavailable Mikal Jones MD Unavailable Lulú Vizcaino Unavailable [phone] Encounter Details Date Type Department Care Team (Late st Contact Info) Description 12/15/2020 Ancillary Orders [facility],Outside Imaging 30 [place], [place] [id number] System, Provider Not In, PhD Partners [address] [address] Social History Tobacco Use Types Packs/Day Years [...] PM EDT Office Visit [facility] 22 [place] [address] Rogelio Torrez DO 22 [place] [address] [email or web address] 12/10/2025 10:40 AM EDT Appointment [facility] 30 [place] [address] Lulú Vizcaino MBBS 30 [place] [address] [email or web address] 12/10/2025 11:40 AM EDT Office Visit [facility] Miguel Angel 30 [place] [address] Lulú Vizcaino MBBS 30 [place] [address] [email or web address] 03/03/2026 8:30 AM EDT Telemedicine [facility] Cardiac Arrhythmia Service 32 [facility], 5th Floor, [address] [place] [address] Angel Domínguez MD [address] [facility] [place] [address] [email or web address] documented as of this encounter Results [...] documented as of this encounter Care Teams Special Education Curriculum Specialist Relationship Specialty Start Date End Date Sherice John MD [address] [place] [address] [email or web address] PCP - General Internal Medicine 03/08/18 Deya Sotelo MD [address] [address] [email or web address] Primary Oncologist Hematology and Oncology 11/27/2211/18 Joni Deleon MD [address] [place] [address] [place] [address] Pulmonary Disease 07/18/23 Mikal Jones MD 2 [facility] Center [address] [place] [address] Cardiology 07/23/23 Lulú Vizcaino MBBS 2 [facility] Center [address] [place] [address] [email or web address] .[email or web address] [email or web address] Primary Oncologist Medical Oncology 11/29/23 documented as of this encounter Additional Source Comments The information contained in this document represents components of the legal health record. It is not the complete legal health record.[facility]
--- OUTSIDE RECORDS SUMMARY | 2025-05-13 14:28 | XMS_ITS | Encounter Summary ---
Author Organization [employer] Address 75 [facility] 7t [place] [address] Care Team Providers Care Syrup Blender Name Role Phone Sherice John MD Primary Care Provider [phone] Encounter Details Date Type Department Care Team (Late st Contact Info) Description 04/08/2025 Orders Only [facility] MEDICAL [address] [place] [address] Provider, MD Kiersten Social History Tobacco Use [...] degree (e.g., DEVENDRA, MS, Luis Eduardo, MEd, POINTER MACHINE OPERATOR, MARLIN) 02/17/2025 Comments Unknown Sex and Gender [...] Info) Description 06/15/2025 11:40 AM EDT Telemedicine [address] [address] Sherice John MD [address] [place] [address] 08/04/2025 9:30 AM EST Office Visit [address] [address] Sherice John MD [address] [place] [address] documented as of this encounter Procedures Procedure [...] on filedocumented in this encounter Care Teams Syrup Blender Relationship Specialty Start Date End Date Sherice John MD [address] [place] [address] PCP - General Internal Medicine 08/08/22 documented as of this encounter
--- OUTSIDE RECORDS SUMMARY | 2025-05-13 14:28 | XMS_ITS | Encounter Summary ---
Author Organization [employer] Address 75 [facility] 7t [place] [address] Care Team Providers Care Retail Shift Supervisor Name Role Phone Sherice John MD Primary Care Provider [phone] Encounter Details Date Type Department Care Team (Late st Contact Info) Description 09/23/2024 Orders Only [facility] [address] [place] [address] Sherice John MD 73 [place] [address] Social History Tobacco Use Types Packs/Day Years [...] Info) Description 06/15/2025 11:40 AM EDT Telemedicine [address] [address] Sherice John MD [address] [place] [address] 08/04/2025 9:30 AM EST Office Visit [address] [address] Sherice John MD [address] [place] [address] documented as of this encounter Procedures Procedure Name Priority Date/Time Associated Diagnosis Comments HM COLONOSCOPY Routine 05/06/2024 1:27 PM EDT documented in this encounter Results * Hm Colonoscopy (05/06/2024 1:27 PM EDT) Sherice John MD HEALTH MAINTENANCE Final Result documented in this encounter Visit Diagnoses Not on filedocumented in this encounter Care Teams Retail Shift Supervisor Relationship Specialty Start Date End Date Sherice John MD [address] [place] [address] PCP - General Internal Medicine 08/08/22 documented as of this encounter
--- OUTSIDE RECORDS SUMMARY | 2025-05-13 14:28 | XMS_ITS | Encounter Summary ---
Author Organization [facility] Address [address] [place] [address] Phone Care Team Providers Care Cork Compounder Name Role Phone Sherice John MD Primary Care Provider [phone] Deya Sotelo MD Unavailable Joni Deleon MD Unavailable Mikal Jones MD Unavailable [phone] Lulú Vizcaino [facility] Unavailable [phone] Encounter Details Date Type Department Care Team (Late st Contact Info) Description 11/04/2020 Transcribe Orders Virtual Department [address] [place] [address] Mary Hamilton MD 73 [place] [address] Cough (Primary Dx) Social History Tobacco Use [...] PM EDT Office Visit [facility] 22 [place] [address] Rogelio Torrez DO 22 [place] [address] [email or web address] 12/10/2025 10:40 AM EDT Appointment [facility] 30 [place] [address] Lulú Vizcaino MBBS 30 [place] [address] [email or web address] 12/10/2025 11:40 AM EDT Office [facility] at [facility] 30 [place] [address] Lulú Vizcaino MBBS 30 [place] [address] [email or web address] 03/03/2026 8:30 AM EDT Telemedicine [facility]ia Service 32 [facility], 5th Floor, [address] [place] [address] Angel Domínguez MD 55 [facility] [address] [place] [address] [email or web address] documented as of this encounter Results * COVID-19 PCR Order (11/05/2020 9:15 AM EDT) COVID Testing Status Specimen received in analyzing lab. Results should be available within 24 to 48 hrs. [facility] Symptomatic? YES [facility] 11/05/2020 9:15 AM EDT 11/05/2020 12:39 PM EDT Mary Hamilton MD BODY FLUIDS AND STOOLS ORDERABLES Final Result [address] [address] [facility] [address] [place] [address] documented in this encounter Visit Diagnoses Diagnosis [...] documented as of this encounter Care Teams Cork Compounder Relationship Specialty Start Date End Date Sherice John MD [address] [place] [address] [email or web address] PCP - General Internal Medicine 03/08/18 Deya Sotelo MD [facility] [address] [address] [email or web address] Primary Oncologist Hematology and Oncology 11/27/2211/18 Joni Deleon MD [address] [place] [address] [place] [address] Pulmonary Disease 07/18/23 Mikal Jones MD 2 [facility] [address] [place] [address] Cardiology 07/23/23 Lulú Vizcaino MBBS [address] [place] [address] Center [address] [place] [address] [email or web address] Primary Oncologist Medical Oncology 11/29/23 documented as of this encounter Additional Source Comments The information contained in this document represents components of the legal health record. It is not the complete legal health record.[facility]
--- OUTSIDE RECORDS SUMMARY | 2025-05-13 14:28 | XMS_ITS | Encounter Summary ---
Author Organization [facility] Address [address] [place] [address] Phone Care Team Providers Care Towboat Pilot Name Role Phone Sherice John MD Primary Care Provider [phone] Deya Sotelo MD Unavailable Joni Deleon MD Unavailable [phone] Mikal Jones MD Unavailable [phone] Lulú Vizcaino Unavailable [phone] Encounter Details Date Type Department Care Team (Late st Contact Info) Description 10/01/2020 Procedure Pass [facility], [address] [address] Social History Tobacco Use Types Packs/Day Years [...] PM EDT Office Visit [facility] 22 [place] [address] Rogelio Torrez DO 22 [place] [address] [email or web address] 12/10/2025 10:40 AM EDT Appointment [facility] 30 [place] [address] Lulú Vizcaino MBBS 30 [place] [address] [email or web address] 12/10/2025 11:40 AM EDT Office [facility] at [facility] 30 [place] [address] Lulú Vizcaino MBBS [address] [place] [address] [email or web address] 03/03/2026 8:30 AM EDT Telemedicine [facility]hythmia Service 32 [facility], 5th Floor, [address] [place] [address] Angel Domínguez MD [facility] [place] [address] [email or web address] documented as of this encounter Visit [...] documented as of this encounter Care Teams Towboat Pilot Relationship Specialty Start Date End Date Sherice John MD [address] [place] [address] [email or web address] PCP - General Internal Medicine 03/08/18 Deya Sotelo MD [address] [place] [address] [email or web address] Primary Oncologist Hematology and Oncology 11/27/2211/18 Joni Deleon MD [address] [place] [address] [place] [address] Pulmonary Disease 07/18/23 Mikal Jones MD [address] [place] [address] [place] [address] Cardiology 07/23/23 Lulú Vizcaino MBBS 2 [facility] [address] [place] [address] [email or web address] Primary Oncologist Medical Oncology 11/29/23 documented as of this encounter Additional Source Comments The information contained in this document represents components of the legal health record. It is not the complete legal health record.[facility]
--- OUTSIDE RECORDS SUMMARY | 2025-05-13 14:28 | XMS_ITS | Encounter Summary ---
Author Organization [facility] Address [address] [place] [address] Phone Care Team Providers Care Tenant Selector Name Role Phone Sherice John MD Primary Care Provider Deya Sotelo MD Unavailable Joni Deleon MD Unavailable Mikal Jones MD Unavailable [phone] Lulú Vizcaino [facility] Unavailable [phone] Encounter Details Date Type Department Care Team (Late st Contact Info) Description 10/01/2020 Ancillary Orders Virtual Department [address] [place] [address] Sherice John MD [address] [place] [address] [email or web address] Breast screening Social History Tobacco Use Types [...] PM EDT Office Visit [facility] 22 [place] [address] Rogelio Torrez DO 22 [place] [address] [email or web address] 12/10/2025 10:40 AM EDT Appointment [facility] [address] [place] [address] Lulú Vizcaino MBBS 30 [place] [address] [email or web address] 12/10/2025 11:40 AM EDT Office Visit [facility] [address] [place] [address] Lulú Vizcaino MBBS 30 [place] [address] [email or web address] 03/03/2026 8:30 AM EDT Telemedicine [facility] [place] Cardiac Arrhythmia Service 32 [facility], 5th Floor, [address] [place] [address] Angel Domínguez MD 55 [facility] [address] [place] [address] [email or web address] documented as [...] documented as of this encounter Care Teams Tenant Selector Relationship Specialty Start Date End Date Sherice John MD 73 [place] [address] [email or web address] PCP - General Internal Medicine 03/08/18 Deya Sotelo MD [address] [place] [address] [email or web address] Primary Oncologist Hematology and Oncology 11/27/2211/18 Joni Deleon MD [address] [place] [address] [place] [address] Pulmonary Disease 07/18/23 Mikal Jones MD [address] [facility] [address] [place] [address] Cardiology 07/23/23 Lulú Vizcaino MBBS 2 [facility] [address] [place] [address] [email or web address] Primary Oncologist Medical Oncology 11/29/23 documented as of this encounter Additional Source Comments The information contained in this document represents components of the legal health record. It is not the complete legal health record.[facility]
--- OUTSIDE RECORDS SUMMARY | 2025-05-13 14:28 | XMS_ITS | Encounter Summary ---
Author Organization [facility] Address [address] [place] [address] [address] [place] [address] Phone Care Team Providers Care Cigarette Making Machine Operator Name Role Phone Sherice John MD Primary Care Provider [phone] Deya Sotelo MD Unavailable Joni Deleon MD Unavailable Mikal Jones MD Unavailable Lulú Vizcaino [facility] Unavailable [phone] Encounter Details Date Type Department Care Team (Late st Contact Info) Description 07/25/2023 Procedure Pass [facility] 32 [facility], 5th Floor, [address] [place] [address] Social History Tobacco Use Types Packs/Day Years [...] PM EDT Office Visit [facility] 22 [place] [address] Rogelio Torrez DO 22 [place] [address] [email or web address] 12/10/2025 10:40 AM EDT Appointment [facility] 30 [place] [address] Lulú Vizcaino MBBS 30 [place] [address] [email or web address] 12/10/2025 11:40 AM EDT Office Visit [facility] 30 [place] [address] Lulú Vizcaino MBBS [address] [place] [address] [email or web address] 03/03/2026 8:30 AM EDT Telemedicine [facility] Cardiac Arrhythmia Service 32 [facility], 5th Floor, [address] [place] [address] Angel Domínguez MD 55 [facility] [address] [place] [address] [email or web address] documented as of this encounter Visit Diagnoses Not on filedocumented in this encounter Care Teams Cigarette Making Machine Operator Relationship Specialty Start Date End Date Sherice John MD [address] [place] [address] [email or web address] PCP - General Internal Medicine 03/08/18 Deya Sotelo MD [address] [address] [email or web address] Primary Oncologist Hematology and Oncology 11/27/2211/18 Joni Deleon MD [address] [place] [address] [place] [address] Pulmonary Disease 07/18/23 Mikal Jones MD [address] [place] [address] [address] [place] [address] Cardiology 07/23/23 Lulú Vizcaino MBBS [address] [place] [address] Center [address] [place] [address] [email or web address] Primary Oncologist Medical Oncology 11/29/23 documented as of this encounter Additional Source Comments The information contained in this document represents components of the legal health record. It is not the complete legal health record.[facility]
--- OUTSIDE RECORDS SUMMARY | 2025-05-13 14:29 | XMS_ITS | Encounter Summary ---
Author Organization [employer] Address 75 [facility] 7t [place] [address] Care Team Providers Care Foundry Molder Name Role Phone Sherice John MD Primary Care Provider [phone] Encounter Details Date Type Department Care Team (Late st Contact Info) Description 12/22/2024 Orders Only [facility] 58 [place] [address] Sherice John MD 73 [place] [address] Social History Tobacco Use Types Packs/Day Years [...] Info) Description 06/15/2025 11:40 AM EDT Telemedicine [address] [address] Sherice John MD [address] [place] [address] 08/04/2025 9:30 AM EST Office Visit [address] [address] Sherice John MD [address] [place] [address] documented as of this encounter Procedures Procedure [...] on filedocumented in this encounter Care Teams Foundry Molder Relationship Specialty Start Date End Date Sherice John MD [address] [place] [address] PCP - General Internal Medicine 08/08/22 documented as of this encounter
--- OUTSIDE RECORDS SUMMARY | 2025-05-13 14:29 | XMS_ITS | Encounter Summary ---
Author Organization [facility] Address [address] [place] [address] Phone Care Team Providers Care Molded Frames Assembler Name Role Phone Sherice John MD Primary Care Provider [phone] Joni Deleon MD Unavailable Mikal Jones MD Unavailable Lulú Vizcaino [facility] Unavailable Encounter Details Date Type Department Care Team (Latest Contact Info) Description 05/30/2024 Transcribe Orders Virtual Department 30 [place] [address] Sherice John MD 73 [place] [address] [email or web address] Right foot pain (Primary Dx) Social History [...] 1:00 PM EDT Office Visit [facility] [address] [place] [address] Rogelio Torrez DO 22 [place] [address] 12/10/2025 10:40 AM EDT Appointment [facility] 30 [place] [address] Lulú Vizcaino MBBS [address] [place] [address] [email or web address] 12/10/2025 11:40 AM EDT Office Visit [facility] 30 [place] [address] Lulú Vizcaino MBBS [address] [place] [address] [email or web address] .[email or web address] 03/03/2026 8:30 AM EDT Telemedicine [facility] Cardiac Arrhythmia Service 32 [facility], 5th Floor, [address] [place] [address] Angel Domínguez MD 55 [facility] [address] [place] [address] [email or web address] documented as of this encounter Visit Diagnoses Diagnosis Right foot pain- Primary Pain in soft tissues of limb documented in this encounter Care Teams Molded Frames Assembler Relationship Specialty Start Date End Date Sherice John MD 73 [place] [address] [email or web address] PCP - General Internal Medicine 03/08/18 Joni Deleon MD [address] [place] [address] [place] [address] Pulmonary Disease 07/18/23 Mikal Jones MD 2 [facility] Center [address] [place] [address] Cardiology 07/23/23 Lulú Vizcaino MBBS 2 [facility] [address] [place] [address] [email or web address] Primary Oncologist Medical Oncology 11/29/23 documented as of this encounter Additional Source Comments The information contained in this document represents components of the legal health record. It is not the complete legal health record.[facility]
--- OUTSIDE RECORDS SUMMARY | 2025-05-13 14:29 | XMS_ITS | Encounter Summary ---
Author Organization [facility] Address [address] [place] [address] [place] [address] Phone Care Team Providers Care Private Branch Exchange Repairer Name Role Phone Sherice Jonh MD Primary Care Provider [phone] Joni Deleon MD Unavailable [phone] Mikal Jones MD Unavailable Lulú Vizcaino [facility] Unavailable [phone] Encounter Details Date Type Department Care Team (Late st Contact Info) Description 05/06/2024 Procedure Pass [facility] Admitting Dept Virtual Department 30 [place] [address] Social History Tobacco Use Types Packs/Day Years [...] PM EDT Office Visit [facility] 22 [place] [address] Rogelio Torrez DO 22 [place] [address] 12/10/2025 10:40 AM EDT Appointment [facility] 30 [place] [address] Lulú Vizcaino MBBS [address] [place] [address] [email or web address] 12/10/2025 11:40 AM EDT Office Visit [facility] [place] 30 [place] [address] Lulú Vizcaino MBBS [address] [place] [address] [email or web address] 03/03/2026 8:30 AM EDT Telemedicine [facility] Cardiac Arrhythmia Service 32 [facility], 5th Floor, [address] [place] [address] Angel Domínguez MD 55 [facility] [address] [place] [address] [email or web address] documented as of this encounter Visit Diagnoses Not on filedocumented in this encounter Care Teams Private Branch Exchange Repairer Relationship Specialty Start Date End Date Sherice John MD 73 [place] [address] [email or web address] PCP - General Internal Medicine 03/08/18 Joni Deleon MD [address] [place] [address] [place] [address] Pulmonary Disease 07/18/23 Mikal Jones MD 2 [facility] [address] [address] Cardiology 07/23/23 Lulú Vizcaino MBBS 2 [facility] [address] [address] [email or web address] Primary Oncologist Medical Oncology 11/29/23 documented as of this encounter Additional Source Comments The information contained in this document represents components of the legal health record. It is not the complete legal health record.[facility]
--- OUTSIDE RECORDS SUMMARY | 2025-05-13 14:29 | XMS_ITS | Encounter Summary ---
Author Organization [facility] Address [address] [place] [address] Phone Care Team Providers Care Aerospace Quality Engineer Name Role Phone Sherice John MD Primary Care Provider Deya Sotelo MD Unavailable Joni Deleon MD Unavailable Mikal Jones MD Unavailable Lulú Vizcaino Unavailable [phone] Encounter Details Date Type Department Care Team (Late st Contact Info) Description 10/25/2022 Procedure Pass [facility] Scan - [address] [address] Social History Tobacco Use Types Packs/Day Years [...] 10/25/2022 2:41 PM Rhea Ordaz, NAREN * [place] Suicide Severity Rating Scale (Screener/Recent Self-Report) Question [...] PM EDT Office Visit [facility] 22 [place] [address] Rogeilo Torrez DO 22 [place] [address] [email or web address] 12/10/2025 10:40 AM EDT Appointment [facility] 30 [place] [address] Lulú Vizcaino MBBS [address] [place] [address] [email or web address] 12/10/2025 11:40 AM EDT Office Visit [facility] [place] 30 [place] [address] Lulú Vizcaino MBBS 30 [place] [address] [email or web address] 03/03/2026 8:30 AM EDT Telemedicine [facility] Cardiac Arrhythmia Service 32 [facility], 5th Floor, [address] [place] [address] Agnel Domínguez MD 55 [facility] [address] [place] [address] [email or web address] documented as of this encounter Visit Diagnoses Not on filedocumented in this encounter Additional Health Concerns Infection Onset Date Last Indicated Resolved Time CoV-Risk 10/25/2022 10/25/2022 11/05/2022 1:22 AM EDT CoV-Risk 11/24/2022 11/24/2022 12/05/2022 1:22 AM EDT documented as of this encounter Care Teams Aerospace Quality Engineer Relationship Specialty Start Date End Date Sherice John MD [address] [place] [address] [email or web address] PCP - General Internal Medicine 03/08/18 Deya Sotelo MD [address] [address] [email or web address] Primary Oncologist Hematology and Oncology 11/27/2211/18 Joni Deleon MD [address] [place] [address] [place] [address] Pulmonary Disease 07/18/23 Mikal Jones MD [address] [place] [address] [place] [address] Cardiology 07/23/23 Lulú Vizcaino MBBS 2 [facility] [address] [place] [address] [email or web address] .[email or web address] Primary Oncologist Medical Oncology 11/29/23 documented as of this encounter Additional Source Comments The information contained in this document represents components of the legal health record. It is not the complete legal health record.[facility]
--- OUTSIDE RECORDS SUMMARY | 2025-05-13 14:29 | XMS_ITS | Encounter Summary ---
Author Organization [facility] Address [address] [place] [address] Phone Care Team Providers Care Shuttle Veneering Supervisor Name Role Phone Sherice John MD Primary Care Provider Deya Sotelo MD Unavailable Joni Deleon MD Unavailable Mikal Jones MD Unavailable [phone] Lulú Vizcaino Unavailable Encounter Details Date Type Department Care Team (Late st Contact Info) Description 11/29/2018 Procedure Pass [facility], [address] [address] Social History Tobacco Use Types Packs/Day Years [...] PM EDT Office Visit [facility] [address] [place] [address] Rogelio Torrez DO 22 [place] [address] [email or web address] 12/10/2025 10:40 AM EDT Appointment [facility] 30 [place] [address] Lulú Vizcaino, BERNABE 30 [place] [address] [email or web address] 12/10/2025 11:40 AM EDT Office Visit [facility] at [facility] 30 [place] [address] Lulú Vizcaino, [facility] 30 [place] [address] [email or web address] 03/03/2026 8:30 AM EDT Telemedicine [facility] Cardiac Arrhythmia Service 32 [facility], 5th Floor, [address] [place] [address] Angel Domínguez MD 55 [facility] [place] [address] [email or web address] [place] [email or web address] documented as of this encounter [...] documented as of this encounter Care Teams Shuttle Veneering Supervisor Relationship Specialty Start Date End Date Sherice John MD [address] [place] [address] [email or web address] PCP - General Internal Medicine 03/08/18 Deya Sotelo MD [address] [address] [email or web address] Primary Oncologist Hematology and Oncology 11/27/2211/18 Joni Deleon MD [address] [place] [address] [place] [address] Pulmonary Disease 07/18/23 Mikal Jones MD [address] [place] [address] [place] [address] Cardiology 07/23/23 Lulú Vizcaino MBBS [address] [place] [address] [place] [address] [email or web address] [email or web address] [email or web address] .[facility] Primary Oncologist Medical Oncology 11/29/23 documented as of this encounter Additional Source Comments The information contained in this document represents components of the legal health record. It is not the complete legal health record.[facility]
--- OUTSIDE RECORDS SUMMARY | 2025-05-13 14:29 | XMS_ITS | Encounter Summary ---
Author Organization [facility] Address [address] [place] [address] Phone Care Team Providers Care Dyeing Machine Feeder Name Role Phone Sherice John MD Primary Care Provider [phone] Deya Sotelo MD Unavailable Joni Deleon MD Unavailable Mikal Jones MD Unavailable [phone] Lulú Vizcaino [facility] Unavailable [phone] Reason for Referral * MRI/CAT Scan - Closed Specialty Diagnoses / Procedures Referred By Contac t Referred To Contact Radiology Diagnoses Radicular pain in left arm Procedures MRI Cervical Spine Sherice John MD Phone: tel: fax: mailto:[email or web address] Referral ID Status Reason Start Date Expiration Date Visits Re quested Visits Authorized [id number] Closed 11/29/2018 11/29/2019 1 1 * MRI/CAT Scan - Closed Specialty Diagnoses / Procedures Referred By Contac t Referred To Contact Radiology Diagnoses Radicular pain in left arm Procedures MRI Thoracic Spine Sherice John MD Phone: tel: fax: mailto:[email or web address] Referral ID Status Reason Start Date Expiration Date Visits Re quested Visits Authorized [id number] Closed 11/29/2018 11/29/2019 1 1 Encounter Details Date Type Department Care Team (Latest Contact Info) Description 11/29/2018 Transcribe Orders Virtual Department 30 [place] [address] Sherice John MD [address] [place] [address] [email or web address] Radicular pain in left arm (Primary Dx) [...] PM EDT Office Visit [facility] 22 [place] [address] Rogelio Torrez DO 22 [place] [address] 12/10/2025 10:40 AM EDT Appointment [facility] 30 [place] [address] Lulú Vizcaino MBBS 30 [place] [address] [email or web address] 12/10/2025 11:40 AM EDT Office Visit [facility] 30 [place] [address] Lulú Vizcaino MBBS 30 [place] [address] [email or web address] 03/03/2026 8:30 AM EDT Telemedicine [facility] Cardiac Arrhythmia Service 32 [facility], 5th Floor, [address] [place] [address] Angel Domínguez MD 55 [facility] [place] [address] [email or web address] documented as of this encounter Results [...] evidence for cord edema or myelomalacia. POS [id number] Edited by: Brandi Mosley on 12/13/2018 9:32 [...] without evidencefor cord edema or myelomalacia. POS [id number] Edited by: Brandi Mosley on 12/13/2018 9:32 [...] without any significant canal narrowing. POS - [id number] Edited by: Brandi Mosley on 12/13/2018 9:33 [...] of L1 and minimal disc bulging at C17-X3cmxqrpbqo in mild canal stenosis. 2. No levels of any significant neural foraminal stenosis in the thoracicspine. 3. Tiny disc protrusions at T5-T6 and T7-T8 without any significant canalnarrowing. POS - [id number] Edited by: Brandi Mosley on 12/13/2018 9:33 [...] documented as of this encounter Care Teams Dyeing Machine Feeder Relationship Specialty Start Date End Date Sherice John MD 73 [place] [address] PCP - General Internal Medicine 03/08/18 Deya Sotelo MD [facility] [address] [address] [email or web address] Primary Oncologist Hematology and Oncology 11/27/2211/18 Joni Deleon MD [address] [place] [address] [place] [address] Pulmonary Disease 07/18/23 Mikal Jones MD [address] [place] [address] [place] [address] Cardiology 07/23/23 Lulú Vizcaino MBBS [address] [place] [address] [address] [place] [address] [email or web address] Primary Oncologist Medical Oncology 11/29/23 documented as of this encounter Additional Source Comments The information contained in this document represents components of the legal health record. It is not the complete legal health record.[facility]
--- OUTSIDE RECORDS SUMMARY | 2025-05-13 14:29 | XMS_ITS | Encounter Summary ---
Author Organization [facility] Address [address] [place] [address] [place] [address] Phone Care Team Providers Care Director Media Name Role Phone hSerice John MD Primary Care Provider Joni Deleon MD Unavailable Mikal Jones MD Unavailable Lulú Vizcaino [facility] Unavailable Encounter Details Date Type Department Care Team (Late st Contact Info) Description 05/05/2024 Procedure Pass [facility] Admitting Dept Virtual Department 30 [place] [address] Social History Tobacco Use Types Packs/Day Years [...] PM EDT Office Visit [facility] 22 [place] [address] Rogelio Torrez DO 22 [place] [address] 12/10/2025 10:40 AM EDT Appointment [facility] 30 [place] [address] Lulú Vizcaino MBBS 30 [place] [address] [email or web address] 12/10/2025 11:40 AM EDT Office Visit [facility] [place] 30 [place] [address] Lulú Vizcaino MBBS 30 [place] [address] [email or web address] 03/03/2026 8:30 AM EDT Telemedicine [facility] Cardiac Arrhythmia Service 32 [facility], 5th Floor, [address] [place] [address] Angel Domínguez MD 55 [facility] [address] [place] [address] [email or web address] documented as of this encounter Visit Diagnoses Not on filedocumented in this encounter Care Teams Director Media Relationship Specialty Start Date End Date Sherice John MD 73 [place] [address] [email or web address] PCP - General Internal Medicine 03/08/18 Joni Deleon MD [address] [place] [address] [place] [address] Pulmonary Disease 07/18/23 Mikal Jones MD 2 [facility] [address] [place] [address] Cardiology 07/23/23 Lulú Vizcaino MBBS 2 [facility] [address] [place] [address] [email or web address] Primary Oncologist Medical Oncology 11/29/23 documented as of this encounter Additional Source Comments The information contained in this document represents components of the legal health record. It is not the complete legal health record.[facility]
--- OUTSIDE RECORDS SUMMARY | 2025-05-13 14:29 | XMS_ITS | Encounter Summary ---
Author Organization [facility] Address [address] [place] [address] Phone Care Team Providers Care Tankage Grinder Operator Name Role Phone Sherice John MD Primary Care Provider [phone] Deya Sotelo MD Unavailable [phone] Joni Deleon MD Unavailable [phone] Mikal Jones MD Unavailable [phone] Lulú Vizcaino Unavailable [phone] Encounter Details Date Type Department Care Team (Late st Contact Info) Description 12/07/2021 Procedure Pass [facility], [address] [address] Social History Tobacco Use Types Packs/Day Years [...] PM EDT Office Visit [facility] 22 [place] [address] Rogelio Torrez DO 22 [place] [address] [email or web address] 12/10/2025 10:40 AM EDT Appointment [facility] 30 [place] [address] Lulú Vizcaino MBBS 30 [place] [address] [email or web address] 12/10/2025 11:40 AM EDT Office Visit [facility] at [place] [place] 30 [place] [address] Lulú Vizcaino MBBS [address] [place] [address] [email or web address] 03/03/2026 8:30 AM EDT Telemedicine [facility]iac [facility]hythmia Service 32 [facility], 5th Floor, [address] [place] [address] Angel Domínguez MD 55 [facility] [place] [address] [email or web address] documented as of this encounter Visit Diagnoses Not on filedocumented in this encounter Additional Health Concerns Infection Onset Date Last Indicated Resolved Time CoV-Risk 07/04/2022 07/04/2022 07/15/2022 4:44 AM EST CoV-Risk 10/12/2022 10/12/2022 10/23/2022 1:22 AM EST CoV-Risk 10/25/2022 10/25/2022 11/05/2022 1:22 AM EDT CoV-Risk 11/24/2022 11/24/2022 12/05/2022 1:22 AM EDT documented as of this encounter Care Teams Tankage Grinder Operator Relationship Specialty Start Date End Date Sherice John MD 73 [place] [address] [email or web address] PCP - General Internal Medicine 03/08/18 Deya Sotelo MD [address] [address] [email or web address] Primary Oncologist Hematology and Oncology 11/27/2211/18 Joni Deleon MD [address] [place] [address] [place] [address] Pulmonary Disease 07/18/23 Mikal Jones MD [address] [place] [address] [address] [place] [address] Cardiology 07/23/23 Lulú Vizcaino, JORGE [address] [place] [address] [address] [place] [address] [email or web address] Primary Oncologist Medical Oncology 11/29/23 documented as of this encounter Additional Source Comments The information contained in this document represents components of the legal health record. It is not the complete legal health record.[facility]
--- OUTSIDE RECORDS SUMMARY | 2025-05-13 14:29 | XMS_ITS | Encounter Summary ---
Author Organization [facility] Address [address] [place] [address] Phone Care Team Providers Care Chair Inspector Name Role Phone Sherice John MD Primary Care Provider Deya Sotelo MD Unavailable [phone] Joni Deleon MD Unavailable Mikal Jones MD Unavailable Lulú Vizcaino [facility] Unavailable [phone] Encounter Details Date Type Department Care Team (Latest Contact Info) Description 06/18/2020 Transcribe Orders Virtual Department 30 [place] [address] Sherice John MD [address] [place] [address] [email or web address] Closed fracture of multiple ribs of right [...] PM EDT Office Visit [facility] 22 [place] [address] Rogelio Torrez DO 22 [place] [address] [email or web address] 12/10/2025 10:40 AM EDT Appointment [facility] 30 [place] [address] Lulú Vizcaino MBBS 30 [place] [address] [email or web address] 12/10/2025 11:40 AM EDT Office Visit [facility] 30 [place] [address] Lulú Vizcaino MBBS 30 [place] [address] [email or web address] 03/03/2026 8:30 AM EDT Telemedicine [facility] Cardiac Arrhythmia Service 32 [facility], 5th Floor, [address] [place] [address] Angel Domínguez MD 55 [facility] [address] [place] [address] [email or web address] documented as of this encounter [...] documented as of this encounter Care Teams Chair Inspector Relationship Specialty Start Date End Date Sherice John MD [address] [place] [address] [email or web address] PCP - General Internal Medicine 03/08/18 Deya Sotelo MD [address] [place] [address] [email or web address] Primary Oncologist Hematology and Oncology 11/27/2211/18 Joni Deleon MD [address] [place] [address] [place] [address] Pulmonary Disease 07/18/23 Mikal Jones MD [address] [place] [address] [address] [place] [address] Cardiology 07/23/23 Lulú Vizcaino MBBS 2 [facility] Center [address] [place] [address] [email or web address] Primary Oncologist Medical Oncology 11/29/23 documented as of this encounter Additional Source Comments The information contained in this document represents components of the legal health record. It is not the complete legal health record.[facility]
--- OUTSIDE RECORDS SUMMARY | 2025-05-13 14:29 | XMS_ITS | Encounter Summary ---
Author Organization [employer] Address [address] [facility] 7t [place] [address] Care Team Providers Care Cereal Miller Name Role Phone Sherice John MD Primary Care Provider [phone] Reason for Visit * Reason Onset Date Comments Rx needs clairification 04/22/2024 Gabapent in Rx needs clarification Encounter Details Date Type Department Care Team (Late st Contact Info) Description 04/22/2024 Refill [facility] [address] [place] [address] Sherice John MD 73 [place] [address] Primary insomnia Social History Tobacco Use Types [...] Info) Description 06/15/2025 11:40 AM EDT Telemedicine [facility] 73 [place] [address] Sherice John MD [address] [place] [address] 08/04/2025 9:30 AM EST Office Visit [facility] 73 [place] [address] Sherice John MD [address] [place] [address] documented as of this encounter Visit Diagnoses Diagnosis Primary insomnia Persistent disorder of initiating or maintaining sleep documented in this encounter Care Teams Cereal Miller Relationship Specialty Start Date End Date Sherice John MD 73 [place] [address] PCP - General Internal Medicine 08/08/22 documented as of this encounter
--- OUTSIDE RECORDS SUMMARY | 2025-05-13 14:29 | XMS_ITS | Encounter Summary ---
Author Organization [facility] Address [address] [place] [address] Phone Care Team Providers Care Tobacco Checkout Clerk Name Role Phone Sherice John MD Primary Care Provider [phone] Deya Sotelo MD Unavailable Joni Deleon MD Unavailable [phone] Mikal Jones MD Unavailable Lulú Vizcaino Unavailable Encounter Details Date Type Department Care Team (Late st Contact Info) Description 11/29/2018 Procedure Pass [facility], [address] [address] Social History Tobacco Use Types Packs/Day Years [...] PM EDT Office Visit [facility] 22 [place] [address] Rogelio Torrez DO 22 [place] [address] [email or web address] 12/10/2025 10:40 AM EDT Appointment [facility] 30 [place] [address] Lulú Vizcaino, BERNABE 30 [place] [address] [email or web address] 12/10/2025 11:40 AM EDT Office Visit [facility] 30 [place] [address] Lulú Vizcaino, [facility] 30 [place] [address] [email or web address] 03/03/2026 8:30 AM EDT Telemedicine [facility] Cardiac Arrhythmia Service 32 [facility], 5th Floor, [address] [place] [address] Angel Domínguez MD [facility] [place] [address] [email or web address] documented as of this encounter [...] documented as of this encounter Care Teams Tobacco Checkout Clerk Relationship Specialty Start Date End Date Sherice John MD [address] [place] [address] [email or web address] PCP - General Internal Medicine 03/08/18 Deya Sotelo MD [address] [address] [email or web address] Primary Oncologist Hematology and Oncology 11/27/2211/18 Joni Deleon MD [address] [place] [address] [place] [address] Pulmonary Disease 07/18/23 Mikal Jones MD [address] [place] [address] [place] [address] Cardiology 07/23/23 Lulú Vizcaino MBBS [address] [place] [address] [place] [address] [email or web address] Primary Oncologist Medical Oncology 11/29/23 documented as of this encounter Additional Source Comments The information contained in this document represents components of the legal health record. It is not the complete legal health record.[facility]
--- OUTSIDE RECORDS SUMMARY | 2025-05-13 14:29 | XMS_ITS | Encounter Summary ---
Author Organization [facility] Address [address] [place] [address] Phone Care Team Providers Care Restaurant Hostess Name Role Phone Sherice John MD Primary Care Provider [phone] Joni Deleon MD Unavailable [phone] Mikal Jones MD Unavailable [phone] Lulú Vizcaino [facility] Unavailable [phone] Reason for Referral * MRI/CAT Scan - Closed Specialty Diagnoses / Procedures Referred By Tyler yeung Referred To Contact Radiology Diagnoses Syncope, unspecified syncope type Procedures MRI Brain Sherice John MD Phone: tel: fax: mailto:[email or web address] Referral ID Status Reason Start Date Expiration Date Visits Re quested Visits Authorized [id number] Closed 09/24/2024 09/24/2025 1 1 Encounter Details Date Type Department Care Team (Latest Contact Info) Description 09/24/2024 Transcribe Orders Virtual Department 30 [place] [address] Sherice John MD [address] [place] [address] Syncope, unspecified syncope type (Primary Dx) Social [...] PM EDT Office Visit [facility] 22 [place] [address] Rogelio Torrez DO 22 [place] [address] 12/10/2025 10:40 AM EDT Appointment [facility] 30 [place] [address] Lulú Vizcaino, JORGE 30 [place] [address] [email or web address] 12/10/2025 11:40 AM EDT Office Visit [facility] [place] 30 [place] [address] Lulú Vizcaino MBBS 30 [place] [address] [email or web address] 03/03/2026 8:30 AM EDT Telemedicine [facility]iac [facility]hythmia Service 32 [facility], 5th Floor, [address] [place] [address] Angel Domínguez MD [facility] [address] [place] [address] [email or web address] documented as of this encounter Results * [...] clinician's provided indication for this examination in [facility]:Outside Radiology Order; Syncope, unspecified syncope type TECHNIQUE: [...] type documented in this encounter Care Teams Restaurant Hostess Relationship Specialty Start Date End Date Sherice John MD [address] [place] [address] [email or web address] PCP - General Internal Medicine 03/08/18 Joni Deleon MD [address] [place] [address] [place] [address] Pulmonary Disease 07/18/23 Mikal Jones MD [address] [place] [address] [place] [address] Cardiology 07/23/23 Lulú Vizcaino MBBS [address] [place] [address] [address] [place] [address] [email or web address] Primary Oncologist Medical Oncology 11/29/23 documented as of this encounter Additional Source Comments The information contained in this document represents components of the legal health record. It is not the complete legal health record.[facility]
--- OUTSIDE RECORDS SUMMARY | 2025-05-13 14:29 | XMS_ITS | Encounter Summary ---
Author Organization [facility] Address [address] [place] [address] [address] [place] [address] Phone Care Team Providers Care Restaurant Shift Supervisor Name Role Phone Sherice John MD Primary Care Provider Deya Sotelo MD Unavailable [phone] Joni Deleon MD Unavailable Mikal Jones MD Unavailable [phone] Lulú Vizcaino [facility] Unavailable Encounter Details Date Type Department Care Team (Late st Contact Info) Description 06/07/2023 Procedure Pass [facility] Holter Lab 32 [facility], 5th Floor, [address] [place] [address] Social History Tobacco Use Types Packs/Day Years [...] EDT Office Visit [facility] 22 [place] [address] Rogelio Torrez DO 22 [place] [address] [email or web address] 12/10/2025 10:40 AM EDT Appointment [facility] 30 [place] [address] Lulú Vizcaino MBBS 30 [place] [address] [email or web address] 12/10/2025 11:40 AM EDT Office Visit [facility] 30 [place] [address] Lulú Vizcaino MBBS [address] [place] [address] [email or web address] 03/03/2026 8:30 AM EDT Telemedicine [facility] Cardiac Arrhythmia Service 32 [facility], 5th Floor, [address] [place] [address] Angel Domínguez MD 55 [facility] [address] [place] [address] [email or web address] documented as of this encounter Visit Diagnoses Not on filedocumented in this encounter Care Teams Restaurant Shift Supervisor Relationship Specialty Start Date End Date Sherice John MD [address] [place] [address] [email or web address] PCP - General Internal Medicine 03/08/18 Deya Sotelo MD [address] [address] [email or web address] Primary Oncologist Hematology and Oncology 11/27/2211/18 Joni Deleon MD [address] [place] [address] [place] [address] Pulmonary Disease 07/18/23 Mikal Jones MD [address] [place] [address] [address] [place] [address] Cardiology 07/23/23 Lulú Vizcaino MBBS [address] [place] [address] Center [address] [place] [address] [email or web address] .[email or web address] Primary Oncologist Medical Oncology 11/29/23 documented as of this encounter Additional Source Comments The information contained in this document represents components of the legal health record. It is not the complete legal health record.[facility]
--- OUTSIDE RECORDS SUMMARY | 2025-05-13 14:29 | XMS_ITS | Encounter Summary ---
Author Organization [facility] Address [address] [place] [address] Phone Care Team Providers Care Silk Spreader Name Role Phone Sherice John MD Primary Care Provider Deya Sotelo MD Unavailable Joni Deleon MD Unavailable Mikal Jones MD Unavailable Lulú Vizcaino [facility] Unavailable [phone] Encounter Details Date Type Department Care Team (Late st Contact Info) Description 10/22/2018 Ancillary Orders Virtual Department 30 [place] [address] Sherice John MD [address] [place] [address] [email or web address] Shortness of breath Social History Tobacco Use [...] Encounters Date Type Department Care Team (Late Contact Info) Description 05/21/2025 1:00 PM EDT Office Visit [facility] 22 [place] [address] Rogelio Torrez DO 22 [place] [address] [email or web address] 12/10/2025 10:40 AM EDT Appointment [facility] 30 [place] [address] Lulú Vizcaino MBBS 30 [place] [address] [email or web address] 12/10/2025 11:40 AM EDT Office Visit [facility] 30 [place] [address] Lulú Vizcaino MBBS 30 [place] [address] [email or web address] 03/03/2026 8:30 AM EDT Telemedicine [place] Cardiac Arrhythmia Service 32 [facility], 5th Floor, [address] [place] [address] Angel Domínguez MD 55 [facility] [place] [address] [email or web address] documented as of this encounter [...] documented as of this encounter Care Teams Silk Spreader Relationship Specialty Start Date End Date Sherice John MD [address] [place] [address] [email or web address] PCP - General Internal Medicine 03/08/18 Deya Sotelo MD [address] [place] [address] [email or web address] Primary Oncologist Hematology and Oncology 11/27/2211/18 Joni Deleon MD [address] [place] [address] [place] [address] Pulmonary Disease 07/18/23 Mikal Jones MD [address] [place] [address] [place] [address] Cardiology 07/23/23 Lulú Vizcaino MBBS 2 [facility] Center [address] [place] [address] [email or web address] Primary Oncologist Medical Oncology 11/29/23 documented as of this encounter Additional Source Comments The information contained in this document represents components of the legal health record. It is not the complete legal health record.[facility]
--- OUTSIDE RECORDS SUMMARY | 2025-05-13 14:29 | XMS_ITS | Encounter Summary ---
Author Organization [facility] Address [address] [place] [address] Phone Care Team Providers Care Gis Developer Name Role Phone Sherice John MD Primary Care Provider [phone] Deya Sotelo MD Unavailable Joni Deleon MD Unavailable Mikal Jones MD Unavailable Lulú Vizcaino Unavailable [phone] Encounter Details Date Type Department Care Team (Late st Contact Info) Description 10/25/2023 Procedure Pass [facility], [address] [address] Social History Tobacco Use Types Packs/Day Years [...] PM EDT Office Visit [facility] 22 [place] [address] Rogelio Torrez DO 22 [place] [address] [email or web address] 12/10/2025 10:40 AM EDT Appointment [facility] 30 [place] [address] Lulú Vizcaino MBBS 30 [place] [address] [email or web address] 12/10/2025 11:40 AM EDT Office Visit [facility] Miguel Angel 30 [place] [address] Lulú Vizcaino MBBS 30 [place] [address] [email or web address] 03/03/2026 8:30 AM EDT Telemedicine [facility] Cardiac Arrhythmia Service [address] [facility], 5th Floor, [address] [place] [address] Angel Domínguez MD 55 [facility] [address] [place] [address] [email or web address] documented as of this encounter Visit Diagnoses Not on filedocumented in this encounter Care Teams Gis Developer Relationship Specialty Start Date End Date Sherice John MD [address] [place] [address] [email or web address] PCP - General Internal Medicine 03/08/18 Deya Sotelo MD [address] [address] [email or web address] Primary Oncologist Hematology and Oncology 11/27/2211/18 Joni Deleon MD [address] [place] [address] [place] [address] Pulmonary Disease 07/18/23 Mikal Jones MD [address] [place] [address] [place] [address] Cardiology 07/23/23 Lulú Vizcaino MBBS [address] [place] [address] Center [address] [place] [address] [email or web address] Primary Oncologist Medical Oncology 11/29/23 documented as of this encounter Additional Source Comments The information contained in this document represents components of the legal health record. It is not the complete legal health record.[facility]
--- OUTSIDE RECORDS SUMMARY | 2025-05-13 14:29 | XMS_ITS | Encounter Summary ---
Author Organization [facility] Address [address] [place] [address] [place] [address] Phone Care Team Providers Care Construction Secretary Name Role Phone Pauline Paulino MD Primary Care Provider [phone] Joni Deleon MD Unavailable [phone] Mikal Jones MD Unavailable [phone] Lluú Vizcaino [facility] Unavailable Encounter Details Date Type Department Care Team (Latest Contact Info) Description 06/20/2024 Transcribe Orders Virtual Department 30 [place] [address] Pauline Paulino MD 73 [place] [address] Osteoporosis with current pathological fracture, unspecified osteoporosis [...] PM EDT Office Visit [facility] [address] [place] [address] Rogelio Torrez DO [address] [place] [address] 12/10/2025 10:40 AM EDT Appointment [facility] [address] [place] [address] Lulú Vizcaino MBBS [address] [place] [address] [email or web address] 12/10/2025 11:40 AM EDT Office Visit [facility] 30 [place] [address] Lulú Vizcaino MBBS [address] [place] [address] [email or web address] 03/03/2026 8:30 AM EDT Telemedicine [facility] Cardiac Arrhythmia Service 32 [facility], 5th Floor, [address] [place] [address] Angel Domínguez MD 55 [facility] [address] [place] [address] [email or web address] documented as of this encounter Results * BD DXA AXIAL (SPINE) WITH HIP (11/24/2024 2:28 PM EDT) Anatomical Region Laterality Modality Bone Density Bone Density 11/24/2024 2:16 PM EDT Impressions 11/25/2024 12:54 PM EDT Interpretation: Osteopenia. Narrative 11/25/2024 12:54 PM EDT Referred By: PAULINE PAULINO Indications: Osteoporosis Scanner: BAB[employer] Media A with serial# of [id number] located at [facility] Bone Density Scan (DXA) 11/24/24 Details [...] -2.5), or Osteoporosis (T-score <= -2.5). At [facility], T-scores are compared to peak bone density [...] Referred By: PAULINE PAULINO Indications: Osteoporosis Scanner: HoloSIPX A with serial# of [id number] located at [facility] Bone Density Scan (DXA) 11/24/24 Details [...] -2.5), or Osteoporosis (T-score <= -2.5). At [facility], T-scores are compared to peak bone density [...] sequela documented in this encounter Care Teams Construction Secretary Relationship Specialty Start Date End Date Pauline Paulino MD [address] [place] [address] [email or web address] PCP - General Internal Medicine 03/08/18 Joni Deleon MD [address] [place] [address] [place] [address] Pulmonary Disease 07/18/23 Mikal Jones MD [address] [place] [address] [place] [address] Cardiology 07/23/23 Lulú Vizcaino MBBS [address] [place] [address] [address] [place] [address] [email or web address] Primary Oncologist Medical Oncology 11/29/23 documented as of this encounter Additional Source Comments The information contained in this document represents components of the legal health record. It is not the complete legal health record.[facility]
--- OUTSIDE RECORDS SUMMARY | 2025-05-13 14:29 | XMS_ITS | Encounter Summary ---
Author Organization [employer] Address 75 [facility] 7t [place] [address] Care Team Providers Care Big Data Admin Name Role Phone Sherice John MD Primary Care Provider [phone] Encounter Details Date Type Department Care Team (Late st Contact Info) Description 01/16/2024 Orders Only [facility] MEDICAL [address] [place] [address] Provider, MD Kiersten Social History Tobacco Use [...] Info) Description 06/15/2025 11:40 AM EDT Telemedicine [address] [address] Sherice John MD [address] [place] [address] 08/04/2025 9:30 AM EST Office Visit [address] [address] Sherice John MD [address] [place] [address] documented as of this encounter Procedures Procedure Name Priority Date/Time Associated Diagnosis Comments TRANSTHORACIC ECHO (TTE) COMPLETE Routine 01/03/2024 4:27 AM EDT documented in this encounter Results * Transthoracic echo (TTE) complete (01/03/2024 4:27 AM EDT) us Historical Provider MD ZAMUDIO ECHO PROCEDURES Final Result documented in this encounter Visit Diagnoses Not on filedocumented in this encounter Care Teams Big Data Admin Relationship Specialty Start Date End Date Sherice John MD [address] [place] [address] PCP - General Internal Medicine 08/08/22 documented as of this encounter
--- OUTSIDE RECORDS SUMMARY | 2025-05-13 14:29 | XMS_ITS | Encounter Summary ---
Author Organization [facility] Address [address] [place] [address] Phone Care Team Providers Care Logging Equipment Operator Name Role Phone Sherice John MD Primary Care Provider [phone] Deya Sotelo MD Unavailable Joni Deleon MD Unavailable Mikal Jones MD Unavailable Lulú Vizcaino [facility] Unavailable [phone] Encounter Details Date Type Department Care Team (Latest Contact Info) Description 06/10/2020 Transcribe Orders Virtual Department 30 [place] [address] Sherice John MD [address] [place] [address] [email or web address] Rib injury (Primary Dx) Social History Tobacco [...] PM EDT Office Visit [facility] 22 [place] [address] Rogelio Torrez DO 22 [place] [address] [email or web address] 12/10/2025 10:40 AM EDT Appointment [facility] 30 [place] [address] Lulú Vizcaino MBBS 30 [place] [address] [email or web address] 12/10/2025 11:40 AM EDT Office Visit [facility] Miguel Angel 30 [place] [address] Lulú Vizcaino MBBS 30 [place] [address] [email or web address] 03/03/2026 8:30 AM EDT Telemedicine [facility] Cardiac Arrhythmia Service 32 [facility], 5th Floor, [address] [place] [address] Angel Domínguez MD 55 [facility] [address] [place] [address] [email or web address] documented as of this [...] documented as of this encounter Care Teams Logging Equipment Operator Relationship Specialty Start Date End Date Sherice John MD [address] [place] [address] [email or web address] PCP - General Internal Medicine 03/08/18 Deya Sotelo MD [address] [place] [address] [email or web address] Primary Oncologist Hematology and Oncology 11/27/2211/18 Joni Deleon MD [address] [place] [address] [place] [address] Pulmonary Disease 07/18/23 Mikal Jones MD [address] [place] [address] [address] [place] [address] Cardiology 07/23/23 Lulú Vizcaino MBBS 2 [facility] Center [address] [place] [address] [email or web address] .[email or web address] Primary Oncologist Medical Oncology 11/29/23 documented as of this encounter Additional Source Comments The information contained in this document represents components of the legal health record. It is not the complete legal health record.[facility]
--- OUTSIDE RECORDS SUMMARY | 2025-05-13 14:29 | XMS_ITS | Encounter Summary ---
Author Organization [facility] Address [address] [place] [address] Phone Care Team Providers Care Label Stitcher Name Role Phone Sherice John MD Primary Care Provider [phone] Deya Sotelo MD Unavailable Joni Deleon MD Unavailable Mikal Jones MD Unavailable [phone] Lulú Vizcaino [facility] Unavailable Encounter Details Date Type Department Care Team (Late st Contact Info) Description 03/08/2018 Ancillary Orders Virtual Department [address] [place] [address] Juana Woody MD [address] [place] [address], [address] [address] [email or web address] Calculus of ureter Social History Tobacco Use [...] PM EDT Office Visit [facility] 22 [place] [address] Rogelio Torrez DO 22 [place] [address] [email or web address] 12/10/2025 10:40 AM EDT Appointment [facility] 30 [place] [address] Lulú Vizcaino MBBS 30 [place] [address] [email or web address] 12/10/2025 11:40 AM EDT Office Visit [facility] at [facility] 30 [place] [address] Lulú Vizcaino MBBS 30 [place] [address] [email or web address] 03/03/2026 8:30 AM EDT Telemedicine [facility] Cardiac Arrhythmia Service [address] [facility], 5th Floor, [address] [place] [address] Angel Domínguez MD 55 [facility] [address] [place] [address] [email or web address] documented as of this encounter Visit [...] documented as of this encounter Care Teams Label Stitcher Relationship Specialty Start Date End Date Sherice John MD [address] [place] [address] PCP - General Internal Medicine 03/08/18 Deya Sotelo MD [address] [place] [address] [email or web address] Primary Oncologist Hematology and Oncology 11/27/2211/18 Joni Deleon MD [address] [place] [address] [place] [address] Pulmonary Disease 07/18/23 Mikal Jones MD [address] [place] [address] [address] [place] [address] Cardiology 07/23/23 Lulú Vizcaino MBBS 2 [facility] [address] [place] [address] [email or web address] Primary Oncologist Medical Oncology 11/29/23 documented as of this encounter Additional Source Comments The information contained in this document represents components of the legal health record. It is not the complete legal health record.[facility]
--- OUTSIDE RECORDS SUMMARY | 2025-05-13 14:29 | XMS_ITS | Encounter Summary ---
Author Organization [facility] Address [address] [place] [address] Phone Care Team Providers Care Tab Builder Name Role Phone Sherice John MD Primary Care Provider Deya Sotelo MD Unavailable Joni Deleon MD Unavailable Mikal Jones MD Unavailable Lulú Vizcaino Unavailable [phone] Encounter Details Date Type Department Care Team (Late st Contact Info) Description 05/10/2022 Procedure Pass [facility], Ct Scan - [address] [address] Social History Tobacco Use Types Packs/Day Years [...] 11:35 AM EDT Elaine Wray RN * [place] Suicide Severity Rating Scale (Screener/Recent Self-Report) Question [...] PM EDT Office Visit [facility] 22 [place] [address] Rogelio Torrez DO 22 [place] [address] [email or web address] 12/10/2025 10:40 AM EDT Appointment [facility] 30 [place] [address] Lulú Vizcaino MBBS [address] [place] [address] [email or web address] 12/10/2025 11:40 AM EDT Office Visit [facility] [place] 30 [place] [address] Lulú Vizcaino MBBS [address] [place] [address] [email or web address] 03/03/2026 8:30 AM EDT Telemedicine [facility] Cardiac Arrhythmia Service 32 [facility], 5th Floor, [address] [place] [address] Angel Domínguez MD 55 [facility] [address] [place] [address] [email or web address] documented as of this encounter Visit Diagnoses Not on filedocumented in this encounter Additional Health Concerns Infection Onset Date Last Indicated Resolved Time CoV-Risk 07/04/2022 07/04/2022 07/15/2022 4:44 AM EST CoV-Risk 10/12/2022 10/12/2022 10/23/2022 1:22 AM EST CoV-Risk 10/25/2022 10/25/2022 11/05/2022 1:22 AM EDT CoV-Risk 11/24/2022 11/24/2022 12/05/2022 1:22 AM EDT documented as of this encounter Care Teams Tab Builder Relationship Specialty Start Date End Date Sherice John MD [address] [place] [address] [email or web address] PCP - General Internal Medicine 03/08/18 Deya Sotelo MD [address] [place] [address] [email or web address] Primary Oncologist Hematology and Oncology 11/27/2211/18 Joni Deleon MD [address] [place] [address] [place] [address] Pulmonary Disease 07/18/23 Mikal Jones MD [address] [place] [address] [place] [address] Cardiology 07/23/23 Lulú Vizcaino MBBS 2 [facility] [address] [place] [address] [email or web address] Primary Oncologist Medical Oncology 11/29/23 documented as of this encounter Additional Source Comments The information contained in this document represents components of the legal health record. It is not the complete legal health record.[facility]
--- OUTSIDE RECORDS SUMMARY | 2025-05-13 14:29 | XMS_ITS | Encounter Summary ---
Author Organization [employer] Address 75 [facility] 7t [place] [address] Care Team Providers Care Plastic Surgery Manager Name Role Phone Sherice John MD Primary Care Provider [phone] Encounter Details Date Type Department Care Team (Late st Contact Info) Description 02/24/2025 Orders Only [place] [facility] [address] [place] [address] Sherice John MD 73 [place] [address] Social History Tobacco Use Types Packs/Day Years [...] degree (e.g., DEVENDRA, MS, Luis Eduardo, MEd, PICKER MACHINE OPERATOR, MARLIN) 02/17/2025 Comments Unknown Sex [...] Info) Description 06/15/2025 11:40 AM EDT Telemedicine [address] [address] Sherice John MD [address] [place] [address] 08/04/2025 9:30 AM EST Office Visit [address] [address] Sherice John MD [address] [place] [address] documented as of this encounter Procedures Procedure [...] on filedocumented in this encounter Care Teams Plastic Surgery Manager Relationship Specialty Start Date End Date Sherice John MD [address] [place] [address] PCP - General Internal Medicine 08/08/22 documented as of this encounter
--- OUTSIDE RECORDS SUMMARY | 2025-05-13 14:29 | XMS_ITS | Clinical Summary ---
Author Organization [facility] Address [address] [place] [address] Care Team Providers Care Shipping Room Helper Name Role Phone Sherice John MD [...] topic Insurance MEDICARE PART A [facility] COMMERCIAL Care Teams Shipping Room Helper Relationship Specialty Start Date End Date Sherice John MD [address] [place] [address] PCP - General 12/12/18
--- OUTSIDE RECORDS SUMMARY | 2025-05-13 14:29 | XMS_ITS | Encounter Summary ---
Author Organization [employer] Address [address] [facility] 7t [place] [address] Care Team Providers Care Project Program Manager Name Role Phone Sherice John MD Primary Care Provider [phone] Encounter Details Date Type Department Care Team (Late st Contact Info) Description 05/14/2024 Orders Only [facility] Information Management [address] [place] [address] Sherice John MD [address] [place] [address] Social History Tobacco Use Types Packs/Day Years [...] Description 06/15/2025 11:40 AM EDT Telemedicine [address] [address] Sherice John MD [address] [place] [address] 08/04/2025 9:30 AM EST Office Visit [address] [address] Sherice John MD [address] [place] [address] documented as of this encounter Procedures Procedure [...] on filedocumented in this encounter Care Teams Project Program Manager Relationship Specialty Start Date End Date Sherice John MD [address] [place] [address] PCP - General Internal Medicine 08/08/22 documented as of this encounter
--- OUTSIDE RECORDS SUMMARY | 2025-05-13 14:29 | XMS_ITS | Clinical Summary ---
Author Organization [employer] Address [address] [facility] 7t [place] [address] Care Team Providers Care Cream Cheese Maker Name Role Phone Sherice John MD Primary Care Provider [phone] Allergies Active Allergy Reactions Criticality Noted Date [...] PUFFS IN THE MORNING 4 each 11 Active benzonatate (Tessalon) 200 MG capsule Active [...] will f/up with both her pulm and clean room technician , continue daily weights and report if greater than 2 lb wt gain day to day or 5 lbs in one week. Self monitor closely for any new open wounds or bleeding as she is taking Eliquis 5 mg PO BID d/t hx PE and pulm HTN, ?cardiomyopathy, ? CHF. Recommended schedule her pulm and clean room technician followup visits soon and agrees to do [...] EDT): Encouraged to keep current with her coding quality analyst and clean room technician given her multple complex pulm and cardio health diagnoses and history. Savannah's bp somewhat elevated and will self monitor bp/pulse and 02 sat daily and make/keep PCP, pulm and clean room technician followup visits and agrees to consult with reg handle sewer for dietary advice to help with her [...] on the results of her echocardiogram from [facility] and discussed with her if there are actionable findings. I did encourage her to follow-up with her new coding quality analyst to determine if there are further investigations or treatment warranted for pulmonary hypertension. 11/22/18 CAIT: Mild Assessment & Plan (06/25/2024 8:30 PM EST): Followed by cardiology and also pulm HTN specialist in [place] Dr. Tangela Deleon. See HPI, encouraged to f/up both with her clean room technician who is prescribing her torsemide and with [...] Encounters Date Type Department Care Team Description 2025 Telephone [facility] MEDICAL [address] [place] [address] Sherice John MD 05/04/2025 Results Follow-Up [address] [address] Sherice John MD US RENAL BI 05/04/2025 Orders Only [facility] Information Management [address] [place] [address] Sherice John MD 05/04/[address] [address] Sherice John MD Prior Authorization (pregabalin) 05/02/2025 Orders Only [facility] Information [facility] [address] [place] [address] Pcp, [place] Unassigned 05/01/2025 10:00 AM EDT Office Visit [address] [address] Sherice John MD Closed fracture of sternum [...] Travel 04/30/2025 10:30 AM EDT Office Visit [facility] OPTOMETRY [address] [place] [address] Parris Torres, OD Glaucoma suspect of both eyes (Primary Dx); Keratitis sicca, bilateral; Presbyopia of both eyes 04/24/2025 Travel 04/24/[address] [address] Sherice John MD Primary insomnia 04/15/2025 Orders Only [facility] Information Management [address] [place] [address] Sherice John MD 04/08/2025 Telephone [facility] [address] [place] [address] Sherice John MD ED visit 04/08/2025 Orders Only [facility] [address] [place] [address] ProviderKiersten MD 03/16/[address] [address] Sherice John MD tick bite on left shoulder 03/11/[address] [address] Sherice John MD Essential hypertension 03/06/[address] [address] Sherice John MD High cholesterol 02/24/2025 Orders Only [facility] Information [facility] [address] [place] [address] Sherice John MD 02/17/2025 11:00 AM EDT Office Visit [address] [address] Helga Ramirez CNP Encounter for examination following treatment at hospital (Primary Dx); Osteopenia of lumbar spine 02/17/[address] [address] Helga Ramirez CNP Advice Only 02/16/2025 Travel 02/13/[address] [address] Sherice John MD fax from [facility] re: CS meds 02/12/[address] [address] Sherice John MD request RX for pain 02/11/[address] [address] Sherice John MD Hospital Follow-up; Care Coordination; Chest Pain; Muscle Pain 02/10/[address] [address] Sherice John MD hospital discharge, obtain hospital [...] degree (e.g., MA, MS, Luis Eduardo, MEd, BOOT AND SHOE LABORER, [place]) 02/17/2025 Comments Unknown Sex and Gender [...] Info) Description 06/15/2025 11:40 AM EDT Telemedicine [facility] MEDICAL [address] [place] [address] Sherice John MD [address] [place] [address] 08/04/2025 9:30 AM EST Office Visit [facility] [address] [place] [address] Sherice John MD [address] [place] [address] Health Maintenance Due Date Last Done Comments [...] Panel 09/07/2027 09/07/2022, 11/08/2021 Colonoscopy 05/06/2034 05/06/2024, 06/04/2014, 12/26/2013 Colorectal Cancer Screening 05/06/2034 DTaP/Tdap/Td Vaccines [...] Procedure Name Priority Date/Time Associated Diagnosis Comments US RENAL BI Routine 05/04/2025 10:56 AM EDT OCT, OPTIC NERVE - OU - BOTH [...] Recently Relevant to Health Maintenance Results * US RENAL BI (05/04/2025 10:56 AM EDT) Anatomical Region Laterality Modality Abdomen Ultrasound Sherice John MD IMG US PROCEDURES Final Result * OCT, Optic Nerve - OU - Both Eyes (04/30/2025) Impressions Parris Torres, OD - 04/30/2025 Right eye (OD): RNFL/GCC is normal; stable Left eye (OS): RNFL/GCC is normal; stable Result [facility] Parris Torres OD OPHTH TOMOGRAPHY Final Result * XR LUMBOSACRAL SPINE 1 VW (04/14/2025 9:53 AM EDT) Anatomical Region Laterality Modality Radiographic Tami ging Result [facility] Sherice John MD IMG XR PROCEDURES Final Result * CT angiogram chest interpretation (04/14/2025 9:52 AM EDT) Anatomical Region Laterality Modality Computed Tomogra phy Result [facility] Gisela Unassigned Pcp IMG CT PROCEDURES Final Result * XR Chest 2 Views (04/06/2025 11:28 AM EDT) Anatomical Region Laterality Modality Chest Radiographic Tami ging Result [facility] Kiersten Dick MD IMG XR PROCEDURES Final R esult * XR RIBS BILATERAL 4+ VW W PA CHEST (02/24/2025 12:58 PM EDT) Anatomical Region Laterality Modality Rib, Abdomen Bilateral Radiographic Tami ging Result [facility] Sherice John MD IMG XR PROCEDURES Final Result * Hm Colonoscopy (05/06/2024 1:27 PM EDT) Result Candace John MD HEALTH MAINTENANCE Final Result * BI Mammogram Screening Tomosynthesis Bilateral (01/01/2024 2:48 PM EDT) Anatomical Region Laterality Modality Breast Bilateral Mammography Result [facility] [place] [facility] us Sherice John MD IMG BI PROCEDURES Final Result * Lipid panel (09/07/2022 12:08 PM EST) Cholesterol, Total 164 (<200) MG/DL [facility] Triglyceride (mg/dL) in Serum/Plasma 83 (<150) MG/DL [facility] HDL Cholesterol 75 (>39) MG/DL [facility] LDL Cholesterol, Calculated 72 (0-130) MG/DL [facility] Non HDL Chol. (LDL+VLDL) 89 (<160) MG/DL [facility] Comment: Testing performed or reported by [facility], a Service of [facility], [address] [place] [address] Lulu Masters MD, Product Safety Lead [facility]# [id number] Blood Venous blood specimen / Unknown 09/07/2022 12:08 PM EST 09/07/2022 12:10 PM EST Sherice John MD LAB BLOOD ORDERABLES Final Resul t [address] [address] * Pap Smear (02/01/2016 12:00 AM EDT) Swab Historical Provider LAB CYTOLOGY ORDERABLES F inal Result * Hepatitis C Antibody (08/20/2011 3:22 PM EST) Hepatitis C Antibody Nonreactive Blood 08/20/2011 3:22 PM EST Historical Provider POINT OF CARE TEST ENTER/ EDIT ORDERABLES Final Result from Last 3 Months or Most Recently Relevant to Health Maintenance Insurance MEDICARE [facility] MEDICARE REPLACEMENT Member Subscriber Plan / Payer (Ef fective 2024-Present) Name:Mary Delgado Relation to Subscriber:Self Name:Mary Delgado Payer ID:[id number] (NAIC) Type:Not on file Address: [place] [id number] [facility] MEDICARE [facility] Care Teams Cream Cheese Maker Relationship Specialty Start Date End Date Sherice John MD [address] [place] [address] PCP - General Internal Medicine 08/08/22
--- OUTSIDE RECORDS SUMMARY | 2025-05-13 14:29 | XMS_ITS | Encounter Summary ---
Author Organization [facility] Address [address] [facility] [address] [place] [address] Phone Care Team Providers Care Steam Power Plant Operator Name Role Phone Sherice John MD Primary Care Provider [phone] Joni Deleon MD Unavailable Mikal Jones MD Unavailable [phone] Lulú Vizcaino [facility] Unavailable Encounter Details Date Type Department Care Team (Late st Contact Info) Description 01/01/2024 Procedure Pass [facility] Holter Lab [address] [facility], 5th Floor, [address] [place] [address] Social History Tobacco Use Types Packs/Day Years [...] PM EDT Office Visit [facility] [address] [place] [address] Rogelio Torrez DO [address] [place] [address] [email or web address] 12/10/2025 10:40 AM EDT Appointment [facility] [address] [place] [address] Lulú Vizcaino MBBS 30 [place] [address] [email or web address] 12/10/2025 11:40 AM EDT Office Visit [facility] [place] [address] [place] [address] Lulú Vizcaino MBBS 30 [place] [address] [email or web address] 03/03/2026 8:30 AM EDT Telemedicine [facility] Cardiac Arrhythmia Service [address] [facility], 5th Floor, [address] [place] [address] Angel Domínguez MD [address] [facility] [address] [place] [address] [email or web address] documented as of this encounter Visit Diagnoses Not on filedocumented in this encounter Care Teams Steam Power Plant Operator Relationship Specialty Start Date End Date Sherice John MD [address] [place] [address] [email or web address] PCP - General Internal Medicine 03/08/18 Joni Deleon MD [address] [place] [address] [place] [address] Pulmonary Disease 07/18/23 Mikal Jones MD [address] [place] [address] [address] [place] [address] Cardiology 07/23/23 Lulú Vizcaino MBBS 2 [facility] [address] [place] [address] [email or web address] Primary Oncologist Medical Oncology 11/29/23 documented as of this encounter Additional Source Comments The information contained in this document represents components of the legal health record. It is not the complete legal health record.[facility]
--- OUTSIDE RECORDS SUMMARY | 2025-05-13 14:29 | XMS_ITS | Encounter Summary ---
Author Organization [facility] Address [address] [place] [address] Phone Care Team Providers Care Crepe Maker Name Role Phone Sherice John MD Primary Care Provider [phone] Deya Sotelo MD Unavailable [phone] Joni Deleon MD Unavailable [phone] Mikal Jones MD Unavailable [phone] Lulú Vizcaino Unavailable [phone] Encounter Details Date Type Department Care Team (Late st Contact Info) Description 01/31/2023 Procedure Pass [facility], Ct Scan - [address] [address] Social History Tobacco Use Types Packs/Day Years [...] PM EDT Office Visit [facility] [address] [place] [address] Rogelio Torrez DO [address] [place] [address] [email or web address] 12/10/2025 10:40 AM EDT Appointment [facility] 30 [place] [address] Lulú Vizcaino MBBS 30 [place] [address] [email or web address] 12/10/2025 11:40 AM EDT Office Visit [facility] 30 [place] [address] Lulú Vizcaino MBBS 30 [place] [address] [email or web address] 03/03/2026 8:30 AM EDT Telemedicine [facility] Cardiac Arrhythmia Service [address] [facility], 5th Floor, [address] [place] [address] Angel Domínguez MD [address] [facility] [address] [place] [address] [email or web address] documented as of this encounter Visit Diagnoses Not on filedocumented in this encounter Care Teams Crepe Maker Relationship Specialty Start Date End Date Sherice John MD [address] [place] [address] [email or web address] PCP - General Internal Medicine 03/08/18 Deya Sotelo MD [address] [address] [email or web address] Primary Oncologist Hematology and Oncology 11/27/2211/18 Joni Deleon MD [address] [place] [address] [place] [address] Pulmonary Disease 07/18/23 Mikal Jones MD [address] [place] [address] [place] [address] Cardiology 07/23/23 Lulú Vizcaino MBBS [address] [place] [address] Center [address] [place] [address] [email or web address] Primary Oncologist Medical Oncology 11/29/23 documented as of this encounter Additional Source Comments The information contained in this document represents components of the legal health record. It is not the complete legal health record.[facility]
--- OUTSIDE RECORDS SUMMARY | 2025-05-13 14:29 | XMS_ITS | Encounter Summary ---
Author Organization [facility] Address [address] [place] [address] Phone Care Team Providers Care Web Applications Programmer Name Role Phone Sherice John MD Primary Care Provider Deya Sotelo MD Unavailable Joni Deleon MD Unavailable Mikal Jones MD Unavailable Lulú Vizcaino [facility] Unavailable [phone] Encounter Details Date Type Department Care Team (Latest Contact Info) Description 11/04/2019 Transcribe Orders Virtual Department 30 [place] [address] Sherice John MD [address] [place] [address] [email or web address] Pneumonia due to infectious organism, unspecified laterality, [...] PM EDT Office Visit [facility] 22 [place] [address] Rogelio Torrez DO 22 [place] [address] [email or web address] 12/10/2025 10:40 AM EDT Appointment [facility] 30 [place] [address] Lulú Vizcaino MBBS 30 [place] [address] [email or web address] 12/10/2025 11:40 AM EDT Office Visit [facility] at [facility] 30 [place] [address] Lulú Vizcaino MBBS 30 [place] [address] [email or web address] 03/03/2026 8:30 AM EDT Telemedicine [facility] Cardiac Arrhythmia Service 32 [facility], 5th Floor, [address] [place] [address] Angel Domínguez MD [address] [facility] [address] [place] [address] [email or web address] documented as of this encounter [...] documented as of this encounter Care Teams Web Applications Programmer Relationship Specialty Start Date End Date Sherice John MD [address] [place] [address] [email or web address] PCP - General Internal Medicine 03/08/18 Deya Sotelo MD [address] [place] [address] [email or web address] Primary Oncologist Hematology and Oncology 11/27/2211/18 Joni Deleon MD [address] [place] [address] [place] [address] Pulmonary Disease 07/18/23 Mikal Jones MD [address] [facility] [address] [place] [address] Cardiology 07/23/23 Lulú Vizcaino MBBS 2 [facility] [address] [place] [address] [email or web address] Primary Oncologist Medical Oncology 11/29/23 documented as of this encounter Additional Source Comments The information contained in this document represents components of the legal health record. It is not the complete legal health record.[facility]
--- OUTSIDE RECORDS SUMMARY | 2025-05-13 14:30 | XMS_ITS | Encounter Summary ---
Author Organization [employer] Address [address] [facility] 7t [place] [address] Care Team Providers Care Fireboat Operator Name Role Phone Sherice John MD Primary Care Provider [phone] Encounter Details Date Type Department Care Team (Late st Contact Info) Description 05/04/2025 Results Follow-Up [facility] MEDICAL [address] [place] [address] Sherice John MD 73 [place] [address] US RENAL BI Social History Tobacco Use Types Packs/Day Years [...] degree (e.g., DEVENDRA, MS, Luis Eduardo, MEd, LIGHT CLEANER, [place]) 02/17/2025 Comments Unknown Sex and Gender [...] Info) Description 06/15/2025 11:40 AM EDT Telemedicine [address] [address] Sherice John MD [address] [place] [address] 08/04/2025 9:30 AM EST Office Visit [address] [address] Sherice John MD [address] [place] [address] documented as of this encounter Visit Diagnoses Not on filedocumented in this encounter Care Teams Fireboat Operator Relationship Specialty Start Date End Date Sherice John MD [address] [place] [address] PCP - General Internal Medicine 08/08/22 documented as of this encounter
--- OUTSIDE RECORDS SUMMARY | 2025-05-13 14:30 | XMS_ITS | Encounter Summary ---
Author Organization [facility] Address [address] [place] [address] [place] [address] Phone Care Team Providers Care Matchbook Assembler Name Role Phone Sherice John MD Primary Care Provider [phone] Joni Deleon MD Unavailable Mikal Jones MD Unavailable [phone] Lulú Vizcaino [facility] Unavailable Encounter Details Date Type Department Care Team (Late st Contact Info) Description 09/24/2024 Procedure Pass [facility], [address] [address] Social History Tobacco Use Types Packs/Day Years [...] 1:00 PM EDT Office Visit [facility] [address] [place] [address] Rogelio Torrez DO 22 [place] [address] 12/10/2025 10:40 AM EDT Appointment [facility] 30 [place] [address] Lulú Vizcaino MBBS 30 [place] [address] [email or web address] 12/10/2025 11:40 AM EDT Office Visit [facility] [place] 30 [place] [address] Lulú Vizcaino MBBS [address] [place] [address] [email or web address] 03/03/2026 8:30 AM EDT Telemedicine [facility] Cardiac Arrhythmia Service 32 [facility], 5th Floor, [address] [place] [address] Angel Domínguez MD [address] [facility] [address] [place] [address] [email or web address] documented as of this encounter Visit Diagnoses Not on filedocumented in this encounter Care Teams Matchbook Assembler Relationship Specialty Start Date End Date Sherice John MD [address] [place] [address] [email or web address] PCP - General Internal Medicine 03/08/18 Joni Deleon MD [address] [place] [address] [place] [address] Pulmonary Disease 07/18/23 Mikal Jones MD 2 [facility] [address] [place] [address] Cardiology 07/23/23 Lulú Vizcaino MBBS 2 [facility] [address] [place] [address] [email or web address] Primary Oncologist Medical Oncology 11/29/23 documented as of this encounter Additional Source Comments The information contained in this document represents components of the legal health record. It is not the complete legal health record.[facility]
--- OUTSIDE RECORDS SUMMARY | 2025-05-13 14:30 | XMS_ITS | Encounter Summary ---
Author Organization [employer] Address [address] [facility] 7t [place] [address] Care Team Providers Care Cultured Marble Products Maker Name Role Phone Sherice John MD Primary Care Provider [phone] Encounter Details Date Type Department Care Team (Late st Contact Info) Description 07/31/[address] Health Information Management [address] [place] [address] Sherice John MD 73 [place] [address] Social History Tobacco Use Types Packs/Day Years [...] Info) Description 06/15/2025 11:40 AM EDT Telemedicine [facility] MEDICAL [address] [place] [address] Sherice John MD [address] [place] [address] 08/04/2025 9:30 AM EST Office Visit [address] [address] Sherice John MD [address] [place] [address] documented as of this encounter Procedures Procedure Name Priority Date/Time Associated Diagnosis Comments TSH Routine 07/30/2023 documented in this encounter Results * TSH (07/30/2023) Blood Venous blood specimen / Unknown us Sherice John MD LAB BLOOD ORDERABLES Edited Resu lt - Final documented in this encounter Visit Diagnoses Not on filedocumented in this encounter Care Teams Cultured Marble Products Maker Relationship Specialty Start Date End Date Sherice John MD [address] [place] [address] PCP - General Internal Medicine 08/08/22 documented as of this encounter
--- OUTSIDE RECORDS SUMMARY | 2025-05-13 14:30 | XMS_ITS | Encounter Summary ---
Author Organization [facility] Address [address] [place] [address] Phone Care Team Providers Care Baker Chef Name Role Phone Sherice John MD Primary Care Provider Deya Sotelo MD Unavailable Joni Deleon MD Unavailable [phone] Mikal Jones MD Unavailable [facility] Unavailable [phone] Encounter Details Date Type Department Care Team (Latest Contact Info) Description 10/25/2023 Transcribe Orders Virtual Department [address] [place] [address] Sherice John MD [address] [place] [address] [email or web address] Breast screening (Primary Dx) Social History Tobacco [...] PM EDT Office Visit [facility] [address] [place] [address] Rogelio Torrez DO [address] [place] [address] [email or web address] 12/10/2025 10:40 AM EDT Appointment [facility] [address] [place] [address] Lulú Vizcaino MBBS [address] [place] [address] [email or web address] 12/10/2025 11:40 AM EDT Office Visit [facility] [address] [place] [address] Lulú Vizcaino MBBS [address] [place] [address] [email or web address] 03/03/2026 8:30 AM EDT Telemedicine [facility]hythm[facility] [address] [facility], 5th Floor, [address] [place] [address] Angel Domínguez MD 55 [facility] [address] [place] [address] [email or web address] documented as of this encounter [...] unspecified documented in this encounter Care Teams Baker Chef Relationship Specialty Start Date End Date Sherice John MD [address] [place] [address] PCP - General Internal Medicine 03/08/18 Deya Sotelo MD [address] [facility] [address] [address] [email or web address] Primary Oncologist Hematology and Oncology 11/27/2211/18 Joni Deleon MD [address] [place] [address] [place] [address] Pulmonary Disease 07/18/23 Mikal Jones MD 2 [facility] [address] [place] [address] Cardiology 07/23/23 Lulú Vizcaino MBBS 2 [facility] [address] [place] [address] [email or web address] Primary Oncologist Medical Oncology 11/29/23 documented as of this encounter Additional Source Comments The information contained in this document represents components of the legal health record. It is not the complete legal health record.[facility]
--- OUTSIDE RECORDS SUMMARY | 2025-05-13 14:30 | XMS_ITS | Encounter Summary ---
Author Organization [employer] Address [address] [facility] 7t [place] [address] Care Team Providers Care Critical Care Technician Name Role Phone Sherice John MD Primary Care Provider [phone] Encounter Details Date Type Department Care Team (Late st Contact Info) Description 01/07/2024 Orders Only [facility] [address] [place] [address] Sherice John MD [address] [place] [address] Social History Tobacco Use Types Packs/Day Years Used Date Smoking Tobacco: Never Passive Smoke Exposure: Past Smokeless Tobacco: Never Alcohol Use Standard Drinks/Week Comments Yes 0 (1 standard drink = 0.6 oz pur e alcohol) Housing Stability Answer Date Recorded What is your housing situation today? I have magda hoksins 06/04/[address] you li [...] Info) Description 06/15/2025 11:40 AM EDT Telemedicine [address] [address] Sherice John MD [address] [place] [address] 08/04/2025 9:30 AM EST Office Visit [address] [address] Sherice John MD [address] [place] [address] documented as of this encounter Procedures Procedure [...] on filedocumented in this encounter Care Teams Critical Care Technician Relationship Specialty Start Date End Date Sherice John MD [address] [place] [address] PCP - General Internal Medicine 08/08/22 documented as of this encounter
--- OUTSIDE RECORDS SUMMARY | 2025-05-13 14:30 | XMS_ITS | Encounter Summary ---
Author Organization [employer] Address [address] [facility] 7t [place] [address] Care Team Providers Care Apartment House Manager Name Role Phone Sherice John MD Primary Care Provider [phone] Encounter Details Date Type Department Care Team (Late st Contact Info) Description 05/04/2025 Orders Only [facility] [address] [place] [address] Sherice John MD [address] [place] [address] Social History Tobacco Use Types Packs/Day Years [...] degree (e.g., DEVENDRA, MS, Luis Eduardo, MEd, READINESS PARAPROFESSIONAL, MARLIN) 02/17/2025 Comments Unknown Sex and Gender [...] Info) Description 06/15/2025 11:40 AM EDT Telemedicine [address] [address] Sherice John MD [address] [place] [address] 08/04/2025 9:30 AM EST Office Visit [address] [address] Sherice John MD [address] [place] [address] documented as of this encounter Procedures Procedure Name Priority Date/Time Associated Diagnosis Comments US RENAL BI Routine 05/04/2025 10:56 AM EDT documented in this encounter Results * US RENAL BI (05/04/2025 10:56 AM EDT) Anatomical Region Laterality Modality Abdomen Ultrasound us Sherice John MD IMG US PROCEDURES Final Result documented in this encounter Visit Diagnoses Not on filedocumented in this encounter Care Teams Apartment House Manager Relationship Specialty Start Date End Date Sherice John MD [address] [place] [address] PCP - General Internal Medicine 08/08/22 documented as of this encounter
--- OUTSIDE RECORDS SUMMARY | 2025-05-13 14:30 | XMS_ITS | Encounter Summary ---
Author Organization [facility] Address [address] [facility] [address] [place] [address] Phone Care Team Providers Care Glass Embosser Name Role Phone Sherice John MD Primary Care Provider Deya Sotelo MD Unavailable [phone] Joni Deleon MD Unavailable Mikal Jones MD Unavailable [phone] Lulú Vizcaino Unavailable Encounter Details Date Type Department Care Team (Late st Contact Info) Description 10/15/2023 Procedure Pass [facility] Cardiac Development Architect [address] [facility], [address], [address] [place] [address] Social History Tobacco Use Types [...] PM EDT Office Visit [facility] 22 [place] [address] Rogelio Torrez DO 22 [place] [address] [email or web address] 12/10/2025 10:40 AM EDT Appointment [facility] 30 [place] [address] Lulú Vizcaino MBBS 30 [place] [address] [email or web address] 12/10/2025 11:40 AM EDT Office Visit [facility] 30 [place] [address] Lulú Vizcaino MBBS [address] [place] [address] [email or web address] 03/03/2026 8:30 AM EDT Telemedicine [facility] Cardiac Arrhythmia Service 32 [facility], 5th Floor, [address] [place] [address] Angel Domínguez MD 55 [facility] [address] [place] [address] [email or web address] documented as of this encounter Visit Diagnoses Not on filedocumented in this encounter Care Teams Glass Embosser Relationship Specialty Start Date End Date Sherice John MD [address] [place] [address] [email or web address] PCP - General Internal Medicine 03/08/18 Deya Sotelo MD [address] [address] [email or web address] Primary Oncologist Hematology and Oncology 11/27/2211/18 Joni Deleon MD [address] [place] [address] [place] [address] Pulmonary Disease 07/18/23 Mikal Jones MD 2 [facility] [address] [place] [address] Cardiology 07/23/23 Lulú Vizcaino MBBS 2 [facility] [address] [place] [address] [email or web address] Primary Oncologist Medical Oncology 11/29/23 documented as of this encounter Additional Source Comments The information contained in this document represents components of the legal health record. It is not the complete legal health record.[facility]
--- OUTSIDE RECORDS SUMMARY | 2025-05-13 14:30 | XMS_ITS | Encounter Summary ---
Author Organization [facility] Address [address] [place] [address] Phone Care Team Providers Care Bond Clerk Name Role Phone Sherice John MD Primary Care Provider [phone] Joni Deleon MD Unavailable Mikal Jones MD Unavailable [facility]ul[facility] V[facility]o [facility] Unavailable [phone] Reason for Referral * Outpatient Procedure - Closed Specialty Diagnoses / Procedures Referred By Tyler yeung Referred To Contact Radiology Diagnoses Syncope, unspecified syncope type Procedures US Carotid Duplex Complete (Bilateral) Sherice John MD Phone: tel: fax: mailto:[email or web address] Referral ID Status Reason Start Date Expiration Date Visits Re quested Visits Authorized [id number] Closed 11/03/2024 11/03/2025 1 1 Encounter Details Date Type Department Care Team (Latest Contact Info) Description 11/03/2024 Transcribe Orders Virtual Department [address] [place] [address] Sherice John MD [address] [place] [address] Syncope, unspecified syncope type (Primary Dx) Social [...] PM EDT Office Visit [facility] [address] [place] [address] Rogelio Torrez DO [address] [place] [address] 12/10/2025 10:40 AM EDT Appointment [facility] [address] [place] [address] Lulú Vizcaino MBBS 30 [place] [address] [email or web address] 12/10/2025 11:40 AM EDT Office Visit [facility] Miguel Angel [address] [place] [address] Lulú Vizcaino MBBS 30 [place] [address] [email or web address] 03/03/2026 8:30 AM EDT Telemedicine [facility] Cardiac Arrhythmia Service [address] [facility], 5th Floor, [address] [place] [address] Angel Domínguez MD 55 [facility] [address] [place] [address] [email or web address] documented as of this encounter [...] type documented in this encounter Care Teams Bond Clerk Relationship Specialty Start Date End Date Sherice John MD [address] [place] [address] [email or web address] PCP - General Internal Medicine 03/08/18 Joni Deleon MD [address] [place] [address] [place] [address] Pulmonary Disease 07/18/23 Mikal Jones MD [facility] [address] [place] [address] Cardiology 07/23/23 Lulú Vizcaino MBBS 2 [facility] [address] [place] [address] [email or web address] Primary Oncologist Medical Oncology 11/29/23 documented as of this encounter Additional Source Comments The information contained in this document represents components of the legal health record. It is not the complete legal health record.[facility]
--- OUTSIDE RECORDS SUMMARY | 2025-05-13 14:30 | XMS_ITS | Encounter Summary ---
Author Organization [employer] Address [address] [facility] 7t [place] [address] Care Team Providers Care Mass Spectrometry Manager Name Role Phone Sherice John MD Primary Care Provider [phone] Encounter Details Date Type Department Care Team (Late st Contact Info) Description 12/07/2023 Orders Only [facility] [address] [place] [address] Sherice John MD [address] [place] [address] Social History Tobacco Use Types Packs/Day Years [...] Info) Description 06/15/2025 11:40 AM EDT Telemedicine [address] [address] Sherice John MD [address] [place] [address] 08/04/2025 9:30 AM EST Office Visit [address] [address] Sherice John MD [address] [place] [phone] documented as of this encounter Procedures Procedure [...] on filedocumented in this encounter Care Teams Mass Spectrometry Manager Relationship Specialty Start Date End Date Sherice John MD [address] [place] [address] PCP - General Internal Medicine 08/08/22 documented as of this encounter
--- OUTSIDE RECORDS SUMMARY | 2025-05-13 14:30 | XMS_ITS | Clinical Summary ---
Author Organization [facility] Address [address] [place] [address] Phone Care Team Providers Care Copy Room Technician Name Role Phone Sherice Paulino MD Primary Care Provider Joni Deleon MD Unavailable [phone] Mikal Jones MD Unavailable [phone] Lulú Vizcaino [facility] Unavailable Allergies Active Allergy Reactions Criticality Noted Date [...] tablet by mouth daily. Active ID-denosumab <PROLIA> (17-143) 60 mg/mL subcutaneous injection Inject under the [...] - 04/28/2025 11:59 PM EDT Hospital Encounter [facility] [address] [facility], 5th Floor, [address] [place] [address] Angel Domínguez MD Discharge Disposition: Home or Self Care 04/27/2025 Procedure Pass [facility] [address] [facility], 5th Floor, [address] [place] [address] 04/27/2025 Orders Only [facility]iac Arrhythmia Service [address] [place] [address], 5th Floor, [address] [place] [address] Silvana Gupta RN PVC (premature ventricular contraction) (Primary Dx); Palpitations 03/25/2025 Refill [facility]ia [facility] [address] [facility], 5th Floor, [address] [place] [address] Angel Domínguez MD Medication Refill 03/04/2025 9:00 AM EDT Telemedicine [facility]ia [facility] [address] [place] [address], 5th Floor, [address] [place] [address] Angel Domínguez MD PVC (premature ventricular contraction) (Primary Dx) 02/27/2025 2:48 PM EDT - 02/27/2025 11:59 PM EDT Hospital Encounter [facility] Laboratory [address] [place] [address] Angel Domínguez MD Discharge Disposition: Home or Self Care 02/10/2025 8:33 PM EDT - 02/10/2025 9:47 PM EDT Emergency [facility] [address] [place] [address] Anirudh Rivero MD Discharge Disposition: Home or Self Care 02/10/2025 5:30 PM EDT Office Visit [facility] [address] [place] [address] Manuel Garza CNP Chest pain, unspecified type (Primary Dx); Cat scratch 02/10/2025 1:20 PM EDT Telemedicine [facility] [address] [place] [address] Zelalem Johansen MD Cat scratch (Primary Dx) from Last 3 [...] Patient Refused),10/22/2019(Deferred: Patient Refused),10/22/2019(Deferred: Not Available From Network Program Manager),07/14/2019 Pneumococcal polysaccharide PPSV23 08/24/2017 RSV Vaccine (monovalent, [...] PM EDT Office Visit [facility] [address] [place] [address] Rogelio Torrez DO [address] [place] [address] [email or web address] 12/10/2025 10:40 AM EDT Appointment [facility] [address] [place] [address] Lulú Vizcaino MBBS [address] [place] [address] [email or web address] 12/10/2025 11:40 AM EDT Office Visit [facility] [place] [address] [place] [address] Lulú Vizcaino MBBS 30 [place] [address] [email or web address] 03/03/2026 8:30 AM EDT Telemedicine [facility]iac [facility]hythmia Service [address] [facility], 5th Floor, [address] [place] [address] Angel Domínguez MD [address] [facility] [address] [place] [address] [email or web address] Health Maintenance Due Date Last Done Comments [...] this topic Medical Devices Implanted Type Area Network Program Manager Device Identifier Shelf Expiration Date Model / [...] ALKALINE PHOSPHATASE 131(H) 39 - 117 U/L [facility] TOTAL BILIRUBIN 0.4 0.0 - 1.2 mg/dL [facility] DIRECT BILIRUBIN 0.1 0.0 - 0.2 mg/dL [facility] Bilirubin (Indirect) NOT CALCULATED 0 - 1.5 mg/dL [facility] AST 21 0 - 37 U/L [facility] ALT 11 0 - 40 U/L [facility] TOTAL PROTEIN 7.5 6.5 - 8.0 g/dL [facility] ALBUMIN 4.4 3.9 - 4.8 g/dL [facility] GLOBULIN 3.1 1 - 4.8 g/dL [facility] A/G Ratio 1.42 1.00 - 4.80 RATIO [facility] Blood 02/27/2025 3:07 PM EDT 02/27/2025 3:10 PM EDT us Angel Domínguez MD LAB BLOOD ORDERABLES Fin al Result [facility] [address] [place] [address] * (ABNORMAL) Troponin (02/10/2025 7:33 PM EDT) Only the most recent of2 resultswithin the time period is included. Troponin-T, HS Gen5 14(H) 0 - 9 ng/L [facility] Blood 02/10/2025 7:33 PM EDT 02/10/2025 7:36 PM EDT us Brayden Jiang MD LAB BLOOD ORDERAB LES Final Result [facility] [address] [place] [address] * CBC and differential (02/10/2025 6:42 PM EDT) WBC 6.79 4.00 - 11.00 K/uL [facility] RBC 4.32 4.00 - 5.20 M/uL [facility] HGB 13.4 12.0 - 16.0 g/dL [facility] HCT 41.5 36.0 - 46.0 % [facility] PLT 180 150 - 450 K/uL [facility] MCV 96.1 80.0 - 100.0 fL [facility] MCH 31.0 27.0 - 31.0 pg [facility] MCHC 32.3 32.0 - 36.0 g/dL [facility] RDW 13.0 11.5 - 14.5 % [facility] MPV 11.3 8.4 - 12.0 fL [facility] NRBC 0.00 0.00 /100 WBCs [facility] ABSOLUTE NRBC 0.00 0.00 K/uL [facility] DIFF METHOD Auto [facility] NEUTS 55.5 48.0 - 76.0 % [facility] LYMPHS 34.8 18.0 - 41.0 % [facility] MONOS 7.5 4.0 - 11.0 % [facility] EOS 1.8 0.0 - 5.0 % [facility] BASOS 0.3 0.0 - 1.5 % [facility] Granulocytes, immature (%) 0.1 0.0 - 0.9 % [facility] ABSOLUTE NEUTS 3.77 1.92 - 7.60 K/uL [facility] ABSOLUTE LYMPHS 2.36 0.72 - 4.10 K/uL [facility] ABSOLUTE MONOS 0.51 0.16 - 1.10 K/uL [facility] ABSOLUTE EOS 0.12 0.00 - 0.50 K/uL [facility] ABSOLUTE BASOS 0.02 0.00 - 0.15 K/uL [facility] Granulocytes, immature 0.01 0.00 - 0.09 K/uL [facility] Blood 02/10/2025 6:42 PM EDT 02/10/2025 6:45 PM EDT us Anirudh Rivero MD LAB BLOOD ORDERABLES Final Resul t Performing Organization Address City/[facility]/ZIP Co de Phone Number [address] [address] * (ABNORMAL) Basic metabolic panel (02/10/2025 6:42 PM EDT) SODIUM 143 133 - 146 mmol/L [facility] CHLORIDE 102 96 - 108 mmol/L [facility] POTASSIUM 4.4 3.3 - 5.1 mmol/L [facility] CO2 30 21 - 35 mmol/L [facility] BUN 18 6 - 19 mg/dL [facility] CREATININE 0.90 0.5 - 1.5 mg/dL [facility] GLUCOSE 103(H) 70 - 99 mg/dL [facility] CALCIUM 9.3 8.4 - 10.3 mg/dL [facility] EGFR 68 >59 mL/min/1.7 3m2 [facility] Comment:Estimated glomerular filtration rate calculated using the CKD-EPI refit equation. ANION GAP 15 10 - 20 mmol/L [facility] Blood 02/10/2025 6:42 PM EDT 02/10/2025 6:45 PM EDT us Anirudh Rivero MD LAB BLOOD ORDERABLES Final Resul t Performing Organization Address City/[facility]/ZIP Co de Phone Number [address] [address] * XR CHEST PA AND LATERAL 2 [...] clinician's provided indication for this examination in [facility]: Pain TECHNIQUE: Chest frontal and lateral [...] clinician's provided indication for this examination in [facility]:Pain TECHNIQUE: Chest frontal and lateral views. [...] BPM [facility] Atrial Rate 92 BPM [facility] [place] Interval 134 ms [facility] QRS Duration 76 ms [facility] QT Interval 346 ms [facility] QTC Interval 427 ms [facility] P [place] 49 degrees [facility] R Wave [place] 3 degrees [facility] T Wave [place] 43 degrees [facility] 02/10/2025 6:11 PM EDT [...] Referred By: SHERICE PAULINO Indications: Osteoporosis Scanner: [employer] A with serial# of [id number] located at [facility] Bone Density Scan (DXA) 11/24/24 Details of [...] -2.5), or Osteoporosis (T-score <= -2.5). At [facility], T-scores are compared to peak bone density [...] Referred By: SHERICE PAULINO Indications: Osteoporosis Scanner: [employer] A with serial# of [id number] located at [facility] Bone Density Scan (DXA) 11/24/24 Details of [...] -2.5), or Osteoporosis (T-score <= -2.5). At [facility], T-scores are compared to peak bone density [...] density results. IMPRESSION: Interpretation: Osteopenia. us Sherice Paulino MD IMG BD BONE DENSITY DEXA Final Result * ENDOSCOPY, COLON (05/06/2024 11:14 AM EDT) Narrative Transcriptions Michel Dailey MD - 05/06/2024 11:14 AM EDT [facility] Patient Name: Mary Delgado Attending MD:: MICHEL DAILEY MD, , Procedure Date: 05/06/2024 11:14 AM Date of : 1950 Age: 73 Admit Type: Outpatient Gender: Female Room: [place] [address] Referring MD: Sherice Paulino MD Exam Type: [...] monitored continuously. The Olympus adult variable colonoscope [id number] #7 was introduced through the anus and advanced to the cecum, identified by appendiceal orifice andileocecal valve. The colonoscopy was performed withdifficulty due to significant looping. Successful completionof the procedure was aided by applying abdominal pressure. The patient tolerated the procedure well. The quality of the bowel preparation was excellent. The quality of the bowel preparation was evaluated using the BBPS ([place] Bowel Preparation Scale)with scores of: Right Colon [...] 11:14 AM Procedure Code(s): --- Professional --- 61545, Colonoscopy, flexible; with removal of tumor(s), polyp(s), or other lesion(s) by snare technique --- Technical --- 02894, Colonoscopy, flexible; with removal of tumor(s), polyp(s), [...] or abscess without bleeding CPT copyright 2021 [employer]. All rights reserved. The codes documented in this report are preliminary and upon farm helper reviewmay be revised to meet current compliance requirements. Procedure Date: 05/06/2024 11:14:[address] [place] [address] Sherice Paulino MD GI PROCEDURE ORDERABLES [...] the results and recommendations. Sherice Paulino MD IM MG EXAMS Final Result from Last 3 Months or Most Recently Relevant to Health Maintenance Insurance MEDICARE PART A & B [facility] EXTENSION MEDICARE SUPPLEMENT MEDICARE PART A & B [facility] EXT[employer]ION MEDICARE SUPPLEMENT MEDICARE PART A & B [facility] [place] [phone] MEDICARE PART A & B [facility] [place] [id number] MEDICARE PART A & B [employer] MEDICARE SUPPLEMENT MEDICARE PART A & B MEDICARE SUPPLEMENT MEDICARE PART A & B [facility] EXTENSION MEDICARE SUPPLEMENT MEDICARE PART A & B [facility] EXTENSION MEDICARE SUPPLEMENT MEDICARE PART A & B [facility] EXTENSION MEDICARE SUPPLEMENT Advance Directives For more information, please contact: [phone] (9AM - 5PM [facility], Sunday-Sunday) * Full Code (Presumed) (Latest Code Status on File) Date Activated Date Inactivated Comments 10/22/2019 5:26 AM 10/24/2019 6:33 PM * Full Code (Presumed) Date Activated Date Inactivated Comments 10/22/2019 12:40 AM 10/22/2019 5:26 AM Care Teams Copy Room Technician Relationship Specialty Start Date End Date Sherice Paulino MD [address] [place] [address] [email or web address] PCP - General Internal Medicine 03/08/18 Joni Deleon MD [address] [place] [address] [place] [address] Pulmonary Disease 07/18/23 Mikal Jones MD [address] [place] [address] Cardiology 07/23/23 Lulú Vizcaino MBBS [address] [place] [address] [address] [place] [address] [email or web address] Primary Oncologist Medical Oncology 11/29/23 Additional Source Comments The information contained in this document represents components of the legal health record. It is not the complete legal health record.[facility]
--- OUTSIDE RECORDS SUMMARY | 2025-05-13 14:30 | XMS_ITS | Encounter Summary ---
Author Organization [employer] Address [address] [facility] 7t [place] [address] Care Team Providers Care Legal Technician Name Role Phone Sherice John MD Primary Care Provider [phone] Encounter Details Date Type Department Care Team (Late st Contact Info) Description 08/25/2023 Orders Only [facility] [address] [place] [address] Sherice John MD 73 [place] [address] Social History Tobacco Use Types Packs/Day Years [...] Info) Description 06/15/2025 11:40 AM EDT Telemedicine [facility] MEDICAL [address] [place] [address] Sherice John MD [address] [place] [address] 08/04/2025 9:30 AM EST Office Visit [address] [address] Sherice John MD [address] [place] [address] documented as of this encounter Procedures Procedure Name Priority Date/Time Associated Diagnosis Comments XR CHEST 2 VIEWS Routine 08/17/2023 documented in this encounter Results * XR Chest 2 Views (08/17/2023) Anatomical Region Laterality Modality Chest Radiographic Tami ging Sherice John MD IMG XR PROCEDURES Edited Result - Final documented in this encounter Visit Diagnoses Not on filedocumented in this encounter Care Teams Legal Technician Relationship Specialty Start Date End Date Sherice John MD [address] [place] [address] PCP - General Internal Medicine 08/08/22 documented as of this encounter
--- OUTSIDE RECORDS SUMMARY | 2025-05-13 14:30 | XMS_ITS | Encounter Summary ---
Author Organization [facility] Address [address] [place] [address] Phone Care Team Providers Care Front Office Developer Name Role Phone Sherice John MD Primary Care Provider Deya Sotelo MD Unavailable Joni Deleon MD Unavailable [phone] Mikal Jones MD Unavailable Lulú Vizcaino Unavailable [phone] Encounter Details Date Type Department Care Team (Latest Contact Info) Description 11/22/2021 Transcribe Orders Virtual Department [address] [place] [address] Fide Tatum PA [address] [place] [address]. [place], [place] [phone] [email or web address] Left foot pain (Primary Dx) Social [...] PM EDT Office Visit [facility] 22 [place] [address] Rogelio Torrez DO 22 [place] [address] [email or web address] 12/10/2025 10:40 AM EDT Appointment [facility] 30 [place] [address] Lulú Vizcaino MBBS 30 [place] [address] [email or web address] 12/10/2025 11:40 AM EDT Office Visit [facility] [address] [place] [address] Lulú Vizcaino MBBS 30 [place] [address] [email or web address] 03/03/2026 8:30 AM EDT Telemedicine [facility]ia Service [address] [facility], 5th Floor, [address] [place] [address] Angel Domínguez MD [address] [facility] [address] [place] [address] [email or web address] documented as of this [...] documented as of this encounter Care Teams Front Office Developer Relationship Specialty Start Date End Date Sherice John MD [address] [place] [address] [email or web address] PCP - General Internal Medicine 03/08/18 Deya Sotelo MD [address] [address] [email or web address] Primary Oncologist Hematology and Oncology 11/27/2211/18 Joni Deleon MD [address] [place] [address] [place] [address] Pulmonary Disease 07/18/23 Mikal Jones MD [address] [facility] [address] [place] [address] Cardiology 07/23/23 Lulú Vizcaino MBBS 2 [facility] [address] [place] [address] [email or web address] Primary Oncologist Medical Oncology 11/29/23 documented as of this encounter Additional Source Comments The information contained in this document represents components of the legal health record. It is not the complete legal health record.[facility]
--- OUTSIDE RECORDS SUMMARY | 2025-05-13 14:30 | XMS_ITS | Encounter Summary ---
Author Organization [employer] Address [address] [facility] 7t [place] [address] Care Team Providers Care Flying Instructor Name Role Phone Sherice John MD Primary Care Provider [phone] Encounter Details Date Type Department Care Team (Late st Contact Info) Description 10/01/2023 Orders Only [facility] [address] [place] [address] Sherice John MD 73 [place] [address] Social History Tobacco Use Types Packs/Day Years [...] Info) Description 06/15/2025 11:[address] [facility] MEDICAL [address] [place] [address] Sherice John MD [address] [place] [address] 08/04/2025 9:30 AM EST Office Visit [address] [address] Sherice John MD [address] [place] [address] documented as of this encounter Procedures Procedure Name Priority Date/Time Associated Diagnosis Comments CBC WITH AUTO DIFFERENTIAL Routine 10/01/2023 documented in this encounter Results * CBC auto differential (10/01/2023) Blood Venous blood specimen / Unknown Sherice John MD LAB BLOOD ORDERABLES Edited Resu lt - Final documented in this encounter Visit Diagnoses Not on filedocumented in this encounter Care Teams Flying Instructor Relationship Specialty Start Date End Date Sherice John MD [address] [place] [address] PCP - General Internal Medicine 08/08/22 documented as of this encounter
--- OUTSIDE RECORDS SUMMARY | 2025-05-13 14:30 | XMS_ITS | Encounter Summary ---
Author Organization [employer] Address 75 [facility] 7t [place] [address] Care Team Providers Care Media Production Manager Name Role Phone Pualine John MD Primary Care Provider [phone] Reason for Visit * Reason Onset Date Comments Medication Problem 05/25/2023 Encounter Details Date Type Department Care Team (Late st Contact Info) Description 05/25/2023 Telephone [facility] MEDICAL [address] [place] [address] Pauline John MD 73 [place] [address] Medication Problem Social History Tobacco Use Types [...] 11:50 AM EDT Had a apt with [place] on Sunday she was due to change medication she is taking not seeing any prescriptions in file. documented in this encounter Plan of Treatment Upcoming Encounters Date Type Department Care Team (Late st Contact Info) Description 06/15/2025 11:40 AM EDT Telemedicine [facility] [address] [place] [address] Pauline John MD [address] [place] [address] 08/04/2025 9:30 AM EST Office Visit [facility] [address] [place] [address] Pauline John MD [address] [place] [address] documented as of this encounter Visit Diagnoses Not on filedocumented in this encounter Care Teams Media Production Manager Relationship Specialty Start Date End Date Pauline John MD [address] [place] [address] PCP - General Internal Medicine 08/08/22 documented as of this encounter
--- OUTSIDE RECORDS SUMMARY | 2025-05-13 14:30 | XMS_ITS | Encounter Summary ---
Author Organization [email or web address] Address 75 [facility] 7t [place] [address] Care Team Providers Care Sleep Lab Technologist Name Role Phone Sherice John MD Primary Care Provider [phone] Encounter Details Date Type Department Care Team (Late st Contact Info) Description 2025 Telephone [place] MEDICAL [address] [place] [address] Sherice John MD 73 [place] [address] Social History Tobacco Use Types Packs/Day Years [...] degree (e.g., MA, MS, Luis Eduardo, MEd, BUSINESS TRANSFORMATION MANAGER, [employer]) 02/17/2025 Comments Unknown Sex and Gender Information Value Date Recorded Sex Assigned at Female 08/01/2022 12:40 PM EST Legal Sex Female 8:36 PM EDT Gender Identity Female 08/01/2022 12:40 PM EST Sexual Orientation Straight 10/04/2022 3: 13 PM EST documented as of this encounter Miscellaneous Notes * Telephone Encounter - Jenny Kidd - 05/12/2025 1:45 PM EDT Spoke with [facility], refaxed referral * Telephone Encounter - Marjorie Posey - 2025 10:41 AM EDT from [facility] Cardiothoracic Surgery called in regards to a referral stating Dr. John gave her one for a displaced sternal fracture. [facility] is in need of referral. Any questions you can reach at: [phone] Fax number: [phone] documented in this encounter Plan of Treatment Upcoming Encounters Date Type Department Care Team (Late st Contact Info) Description 06/15/2025 11:40 AM EDT Telemedicine [facility] MEDICAL [address] [place] [address] Sherice John MD 73 [place] [address] 08/04/2025 9:30 AM EST Office Visit [facility] MED[facility] [address] [place] [address] Sherice John MD 73 [place] [address] documented as of this encounter Visit Diagnoses Not on filedocumented in this encounter Care Teams Sleep Lab Technologist Relationship Specialty Start Date End Date Sherice John MD 73 [place] [address] PCP - General Internal Medicine 08/08/22 documented as of this encounter
--- OUTSIDE RECORDS SUMMARY | 2025-05-13 14:30 | XMS_ITS | Encounter Summary ---
Author Organization [facility] Address [address] [place] [address] [place] [address] Phone Care Team Providers Care Steward/Stewardess Tourist Class Name Role Phone Sherice John MD Primary Care Provider Joni Deleon MD Unavailable Mikal Jones MD Unavailable Lul[employer] V[employer] [place] Unavailable Encounter Details Date Type Department Care Team (Latest Contact Info) Description 11/23/2024 Transcribe Orders Virtual Department 30 [place] [address] Sherice John MD [address] [place] [address] [email or web address] Acute midline low back pain without sciatica [...] PM EDT Office Visit [facility] 22 [place] [address] Rogelio Torrez DO 22 [place] [address] 12/10/2025 10:40 AM EDT Appointment [facility] [address] [place] [address] Lulú Vizcaino MBBS [address] [place] [address] [email or web address] 12/10/2025 11:40 AM EDT Office Visit [facility] [address] [place] [address] Lulú Vizcaino MBBS [address] [place] [address] [email or web address] 03/03/2026 8:30 AM EDT Telemedicine [facility] Cardiac Arrhythmia Service 32 [facility], 5th Floor, [address] [place] [address] Angel Domínguez MD 55 [facility] [address] [place] [address] [email or web address] Scheduled Orders Name Type Priority Associated Diagnoses Orde r Schedule XR Lumbar Spine Imaging Routine Acute midline low back pain without sciatica Expected: 11/23/2024, Expires: 11/23/2025 documented as of this encounter Visit Diagnoses Diagnosis Acute midline low back pain without sciatica- Primary documented in this encounter Care Teams Steward/Stewardess Tourist Class Relationship Specialty Start Date End Date Sherice John MD [address] [place] [address] [email or web address] PCP - General Internal Medicine 03/08/18 Joni Deleon MD [address] [place] [address] [place] [address] Pulmonary Disease 07/18/23 Mikal Jones MD [address] [place] [address] Center [address] [place] [address] Cardiology 07/23/23 Lul[employer] V[employer]caino MBBS [address] [place] [address] [address] [place] [address] [email or web address] Primary Oncologist Medical Oncology 11/29/23 documented as of this encounter Additional Source Comments The information contained in this document represents components of the legal health record. It is not the complete legal health record.[facility]
--- OUTSIDE RECORDS SUMMARY | 2025-05-13 14:30 | XMS_ITS | Encounter Summary ---
Author Organization [employer] Address [address] [facility] 7t [place] [address] Care Team Providers Care Mangle Tender Name Role Phone Sherice John MD Primary Care Provider Encounter Details Date Type Department Care Team (Late st Contact Info) Description 04/15/2025 Orders Only [facility] [address] [place] [address] Sherice John MD [address] [place] [address] Social History Tobacco Use Types Packs/Day Years [...] degree (e.g., DEVENDRA, MS, Luis Eduardo, MEd, PRESS SUPERVISOR, MARLIN) 02/17/2025 Comments Unknown Sex and Gender [...] Info) Description 06/15/2025 11:40 AM EDT Telemedicine [address] [address] Sherice John MD [address] [place] [address] 08/04/2025 9:30 AM EST Office Visit [address] [address] Sherice John MD [address] [place] [address] documented as of this encounter Procedures Procedure [...] on filedocumented in this encounter Care Teams Mangle Tender Relationship Specialty Start Date End Date Sherice John MD [address] [place] [address] PCP - General Internal Medicine 08/08/22 documented as of this encounter
--- OUTSIDE RECORDS SUMMARY | 2025-05-13 14:30 | XMS_ITS | Clinical Summary ---
Author Organization [facility] Address 2 [facility] [place] [address] Phone Care Team Providers Care Photostat Operator Helper Name Role Phone Sherice John MD Primary Care Provider [phone] Allergies Active Allergy Reactions Criticality Noted Date [...] Continue diltiazem and mexiletine. Appreciate [place] from [facility] [place]. Seasonal allergies 11/07/2022 Moderate persistent asthma [...] defer management of this issue to her pipe setter. Fortunately her dyspnea on exertion has been [...] KNEE REPLACE KIDNEY STONE SURGERY 01/2017 PROCEDURE: ME NEPHROLITHOTOMY REMOVAL CALCULUS; COMMENT: Ureteroscopy/stone removal /stent [...] Description 06/23/2025 10:40 AM EST Office Visit [facility] [address] [place] [phone] Dante Ghotra NP [address] [place] [address] [place] [address] Health Maintenance Due [...] metabolic panel (06/25/2024 12:42 PM EST) Pathologist [facility] Glucose 85 70 - 99 mg/dL [facility] [...] 06/26/2024 4:07 AM EST Performed at: [address] [id number] Warp Trucker: Trudy Zamudio MD, Phone: [phone] Reshma Bartolucci DUMPCART DRIVER LAB BLOOD ORDERABLES Final R esult [facility] 1 from Last 3 Months or Most Recently Relevant to Health Maintenance Insurance MEDICARE [facility] Care Teams Photostat Operator Helper Relationship Specialty Start Date End Date Sherice John MD [address] [place] [id number] PCP - General Internal Medicine 01/10/19
--- OUTSIDE RECORDS SUMMARY | 2025-05-13 14:30 | XMS_ITS | Encounter Summary ---
Author Organization [facility] Address [address] [place] [address] [address] [place] [address] Phone Care Team Providers Care Enterprise Systems Engineer Name Role Phone Sherice John MD Primary Care Provider Deya Sotelo MD Unavailable Joni Deleon MD Unavailable Mikal Jones MD Unavailable Lulú Vizcaino [facility] Unavailable [phone] Encounter Details Date Type Department Care Team (Late st Contact Info) Description 09/26/2023 Procedure Pass [facility] [address] [facility], 5th Floor, [address] [place] [address] Social History Tobacco Use Types Packs/Day Years [...] PM EDT Office Visit [facility] [address] [place] [address] Rogelio Torrez DO [address] [place] [address] [email or web address] 12/10/2025 10:40 AM EDT Appointment [facility] 30 [place] [address] Lulú Vizcaino MBBS 30 [place] [address] [email or web address] 12/10/2025 11:40 AM EDT Office [facility] [address] [place] [address] Lulú Vizcaino MBBS [address] [place] [address] [email or web address] 03/03/2026 8:30 AM EDT Telemedicine [facility] Cardiac Arrhythmia Service [address] [facility], 5th Floor, [address] [place] [address] Angel Domínguez MD [address] [facility] [address] [place] [address] [email or web address] documented as of this encounter Visit Diagnoses Not on filedocumented in this encounter Care Teams Enterprise Systems Engineer Relationship Specialty Start Date End Date Sherice John MD [address] [place] [address] [email or web address] PCP - General Internal Medicine 03/08/18 Deya Sotelo MD [address] [address] [email or web address] Primary Oncologist Hematology and Oncology 11/27/2211/18 Joni Deleon MD [address] [place] [address] [place] [address] Pulmonary Disease 07/18/23 Mikal Jones MD [address] [place] [address] [address] [place] [address] Cardiology 07/23/23 Lulú Vizcaino MBBS [address] [place] [address] Center [address] [place] [address] [email or web address] Primary Oncologist Medical Oncology 11/29/23 documented as of this encounter Additional Source Comments The information contained in this document represents components of the legal health record. It is not the complete legal health record.[facility]
--- OUTSIDE RECORDS SUMMARY | 2025-05-13 14:30 | XMS_ITS | Encounter Summary ---
Author Organization [employer] Address [address] [facility] 7t [place] [address] Care Team Providers Care Manager Rental Name Role Phone Sherice John MD Primary Care Provider [phone] Encounter Details Date Type Department Care Team (Late st Contact Info) Description 05/02/2025 Orders Only [facility] [address] [place] [address] PcpGisela Unassigned Social History Tobacco Use Types [...] is your housing situation today? I have magdavetsa hoskins 01/01/[address] you [...] degree (e.g., DEVENDRA, MS, Luis Eduardo, MEd, SHRIMP CLEANER, MARLIN) 02/17/2025 Comments Unknown Sex and [...] Info) Description 06/15/2025 11:40 AM EDT Telemedicine [address] [address] Sherice John MD [address] [place] [address] 08/04/2025 9:30 AM EST Office Visit [address] [address] Sherice John MD [address] [place] [address] documented as of this encounter Procedures Procedure Name Priority Date/Time Associated Diagnosis Comments CT ANGIOGRAM CHEST INTERPRETATION Routine 04/14/2025 9:52 AM EDT documented in this encounter Results * CT angiogram chest interpretation (04/14/2025 9:52 AM EDT) Anatomical Region Laterality Modality Computed Tomogra phy [facility] Pcp IMG CT PROCEDURES Final Result documented in this encounter Visit Diagnoses Not on filedocumented in this encounter Care Teams Manager Rental Relationship Specialty Start Date End Date Sherice John MD [address] [place] [address] PCP - General Internal Medicine 08/08/22 documented as of this encounter
--- OUTSIDE RECORDS SUMMARY | 2025-05-13 14:30 | XMS_ITS | Encounter Summary ---
Author Organization [employer] Address [address] [facility] 7t [place] [address] Care Team Providers Care Metal Tank Erector Name Role Phone Sherice John MD Primary Care Provider [phone] Encounter Details Date Type Department Care Team (Late st Contact Info) Description 12/19/2023 Orders Only [facility] [address] [place] [address] Sherice John MD [address] [place] [address] Social History Tobacco Use Types Packs/Day Years [...] Info) Description 06/15/2025 11:40 AM EDT Telemedicine [address] [address] Sherice John MD [address] [place] [address] 08/04/2025 9:30 AM EST Office Visit [address] [address] Sherice John MD [address] [place] [address] documented as of this encounter Procedures Procedure [...] filedocumented in this encounter Care Teams Metal Tank Erector Relationship Specialty Start Date End Date Sherice John MD [address] [place] [address] PCP - General Internal Medicine 08/08/22 documented as of this encounter
--- OUTSIDE RECORDS SUMMARY | 2025-05-13 14:31 | XMS_ITS | Data Portability ---
Author Organization [place] [facility] Address [address] [address] Care Team Providers Care Lead Software Test Engineer Name Role Phone CARLOS CHILDERS Primary [...] Details Last Modified Time Details Appointments None record ed. Lab None record ed. Referral None record ed. Procedures None record ed. Surgeries None record ed. Imaging None record ed. Medication Orders None record ed. Patient TargetsNo targets recorded. Patient InstructionsNo instructions recorded. Reason for Referral None Reported. 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 2017 Postnasa l drip; Note: Date Diagnose d: 12/25/2017 2:12 PM (R09.82) Not Available [facility] 4 02:45:11 Allergic rhinitis 15723113 Active 2017 Allergic rhinitis , unspecif ied; Note: Date Diagnose d: 12/25/2017 2:12 PM (J30.9) Not Available [facility] 4 02:45:10 Headache 50059284 Active 2017 Headache ; Note: Date Diagnose d: 12/25/2017 2:12 PM (R51) Not Available [facility] 4 02:45:09 Cough 23113425 Active 2018 Cough; Note: Date Diagnose d: 09/24/2018 11:18 AM (R05) Not Available [facility] 4 02:45:09 Impacted cerumen of bilatera l ears 35883759634 66638 Active 2018 Impacted cerumen, bilatera l; Note: Date Diagnose d: 09/24/2018 11:18 AM (H61.23) Not Available [facility] 4 02:45:10 Otalgia of right ear 8725318250 Active 2018 Otalgia, right ear; Note: Date Diagnose d: 09/24/2018 12:52 PM (H92.01) Not Available [facility] 4 02:45:14 Cough variant asthma 093573742 Active 2018 Cough variant asthma; Note: Date Diagnose d: 11/19/2018 11:34 AM (J45.991 ) Not Available [facility] 4 02:45:09 Obstruct demarco sleep apnea syndrome 68724396 Active 2018 Obstruct demarco sleep apnea (adult) (pediatr ic); Note: Date Diagnose d: 9 11:20 AM (G47.33) Not Available [facility] 4 02:45:14 Acute serous otitis media of right ear 81962448730 [address] Completed 201903/21/2024 Acute serous otitis media, right ear; Note: Date Diagnose d: 0 2:34 PM (H65.01) Not Available [facility] 4 02:45:08 Sensorin eural hearing loss of bilatera l ears 843140708 Active 2019 Sensorin eural hearing loss, bilatera l; Note: Date Diagnose d: 0 2:40 PM (H90.3) Not Available [facility] 4 02:45:12 Disorder of right Eustachi an tube 47568313461 [address] Active 2019 Other specifie d disorder s of Eustachi an tube, right ear; Note: Date Diagnose d: 04/20/2020 4:01 PM (H69.81) Not Available [facility] 4 02:45:15 Impacted cerumen in right ear 84205615325 89671 Active 2022 Impacted cerumen, right ear; Note: Date Diagnose d: 3 11:11 AM (H61.21) Not Available [facility] 4 02:45:12 Itching of skin 891128702 Active 2023 Nata garcia [place] - [facility] 4 09:46:48 Problem Notes None recorded. Medical Equipment None Reported. Allergies Allergen ID Allergen Name Allergen Category Reaction Reaction Severity Criticality Documentation Date Start Date Code Code System Note Provider Name and Address Organization Details Recorded Time 77128 Substance with sulfonami de structure and antibacte rial mechanism of action (substanc e) medicatio n other Not available Not available 01/01/2024 59943 8003 SNOMED React ion: unkno wn, unspe cifie d;; Not Available [facility] 4 00:49:45 Medications Name Sig Start [...] mg tablet 02/02 completed Medicati on ID: [id number] D uration Value: 30 Brand Name: amlodipi [...] 5 mg tablet active Medicati on ID: [id number] B rand Name: bisoprol ol fumarate Send Method: E-Prescr ibed Sub s Allowed: subs OK Medic ationGen ericName : bisoprol ol fumarate Not Available Not Available Not Available alprazola m 0.5 mg tablet TAKE 1/2 TO 1 TABLET DAILY NEEDED FOR ANXIETY active Not Available Not Available No t Available gabapenti n 800 mg tablet 02/02 completed Medicati on ID: [id number] D uration Value: 30 Brand Name: gabapent in Send Method: E-Prescr ibed Sub s Allowed: subs OK Speci al Instruct ion: take 1 tablet by mouth at bedtime Medicati onGeneri cName: gabapent in Not Available Not Available Not Available meclizine 25 mg tablet 11/13 completed Medicati on ID: 122748 B rand Name: meclizin e Send Method: [...] mg tablet 02/02 completed Medicati on ID: [id number] D uration Value: 30 Brand Name: zolpidem [...] 24 hr 2020 active Medicati on ID: [id number] B rand Name: metoprol ol succinat e Send Method: E-Prescr ibed Sub s Allowed: subs OK Medic ationGen ericName : metoprol ol succinat e Not Available Not Available Not Available lotepredn ol etabonate 0.5 % eye drops,[facility] ADMINIST ER 1 DROP INTO BOTH EYES 4 TIMES DAILY FOR 14 DAYS. active Not Available Not Available No t Available zolpidem 10 mg tablet 2020 active Medicati on ID: [id number] B rand Name: zolpidem Send Method: E-Prescr ibed Sub s Allowed: subs OK Medic ationGen ericName : zolpidem Not Available Not Available Not Available fluticaso ne propionat e 50 mcg/actua tion nasal spray,advid pension 2020 active Medicati on ID: [id number] B rand Name: fluticas one propiona te [...] sustained -release 11/13 completed Medicati on ID: [id number] B rand Name: bupropio n HCl Send [...] aerosol inhaler 2020 active Medicati on ID: [id number] B rand Name: Flovent HFA Send Method: E-Prescr ibed Sub s Allowed: subs OK Medic ationGen ericName : Flovent HFA Not Available Not Available Not Available Flovent HFA 220 mcg/actua tion aerosol inhaler 11/13 completed Medicati on ID: [id number] B rand Name: Flovent HFA Send Method: [...] in dose pack active Medicati on ID: 263226 B rand Name: Eliquis DVT-PE Treat 30D [...] Updated DateTime 05/20/2024 162.56 cm 30 kg/m2 22110.66 g Ruperto Hull [place] - [facility] 05/20/2024 09:37:03 Social History None recorded. Functional Status None recorded. Mental Status None recorded. Family History Nothing Reported. Medical History No medical history recorded. Gynecological HistoryNo gynecological history recorded. Obstetrics History GPAL:G 0 P 0 0 0 0 Past Encounters Encounter ID Performer Location Encounter Start Date Encounter Closed Date Diagnosis/Indication Diagnosis SNOMED-CT Code Diagnosis ICD10 Code Diagnosis IMO Codes Diagnosis Note [id number] NATA GENAO PA-C [facility] [address] [place] [address] 05/20/2024 09:25:09 05/20/2024 09:48:11 Itching of skin 048734797 L29.9 Health Concerns Section Related Observation LastModified by Organization Detai ls LastModified Time None Recorded Concern Status LastModified by Organization Details LastModified Time None Recorded Advance Directives Directive None Recorded Payers Insurance Date Sequence Insurance Name Policy Number Policy Adan Covered Member ID Adan Member ID Guarantor Name 05/20/2024 1 [place]: [employer] Mary Delgado [id number] Mary Delgado 05/20/2024 2 [facility] - [facility] [id number] Mary Delgado [id number] Mary Delgado Notes Date Note Type Note Provider Name and Address Organization Details Recorded Time 05/20/2024 text/html ROS as noted in the HPI 74 year old female presents today for an ear cleaning.No specific concerns today. She does have some itching at the ear canal opening. No drainage or pain. HAYDEN BEARDEN MD [address] [place] [address], [phone], [facility] 05/20/2024 10:12:08 OBGyn Episode No OBEpisode recorded.
--- OUTSIDE RECORDS SUMMARY | 2025-05-13 14:31 | XMS_ITS | Encounter Summary ---
Author Organization [facility] Address [address] [facility] [address] [place] [address] Phone Care Team Providers Care Color Developer Name Role Phone Sherice John MD Primary Care Provider [phone] Joni Deleon MD Unavailable Mikal Jones MD Unavailable [phone] Luúl Vizcaino [facility] [place] Encounter Details Date Type Department Care Team (Late st Contact Info) Description 04/27/2025 Procedure Pass [facility] [address] [facility], 5th Floor, [address] [place] [address] Social History Tobacco Use Types Packs/Day Years [...] 1:00 PM EDT Office Visit [facility] [address] [place] [address] Rogelio Torrez DO 22 [place] [address] 12/10/2025 10:40 AM EDT Appointment [facility] 30 [place] [address] Lulú Vizcaino MBBS [address] [place] [address] [email or web address] 12/10/2025 11:40 AM EDT Office Visit [facility] [place] 30 [place] [address] Lulú Vizcaino MBBS 30 [place], [place] [id number] [email or web address] 03/03/2026 8:30 AM EDT Telemedicine [facility] Cardiac Arrhythmia Service [address] [facility], 5th Floor, [address] [place] [address] Angel Domínguez MD [address] [facility] [address] [place] [address] [email or web address] documented as of this encounter Visit Diagnoses Not on filedocumented in this encounter Care Teams Color Developer Relationship Specialty Start Date End Date Sherice John MD [address] [place] [address] [email or web address] PCP - General Internal Medicine 03/08/18 Joni Deleon MD [address] [place] [address] [place] [address] Pulmonary Disease 07/18/23 Mikal Jones MD [address] [place] [address] [address] [place] [address] Cardiology 07/23/23 Lulú Vizcaino MBBS [address] [place] [address] [address] [place] [address] [email or web address] Primary Oncologist Medical Oncology 11/29/23 documented as of this encounter Additional Source Comments The information contained in this document represents components of the legal health record. It is not the complete legal health record.[facility]
== END 2025-05-13 12:01 | disposition home or self-care (01) ==
LOC: HO.HKA 11:18
PROVIDERS: PCP Internal Medicine; Visit Provider Internal Medicine Nephrology
DX: I10 Essential (primary) hypertension (principal); N13.30 Unspecified hydronephrosis
CPT/HCPCS: 99214

== ENCOUNTER → 2025-05-13 14:58 | Outpatient (REF) | payer MEDICARE, OTHER, SELFPAY ==
--- NOTE | 2025-05-13 15:03 | CA_ITS ---
Transthoracic Echocardiogram Patient (Last, First, Middle): Mary Delgado S Gender: F Date of : 1950 Age: 75 Procedure Date: 05/13/2025 Procedure Type: Transthoracic Echocardiogram Location: OP Height: 162.56 cm Weight: 77.57 kg BSA: 1.83 m2 Heart Rate: bpm BP: 110 / 60 mmHg Chemist: VENECIA/JOSELITO Referring MD: Joni Deleon MD Coding Director: Sean Pichardo MD Symptoms: R01.1 - Cardiac murmur, unspecified Study Quality: Adequate ECG Rhythm: Sinus Conclusions: - 1. Hyperdynamic LV ejection fraction of greater than 70% with grade 1 diastolic dysfunction 2. Mild aortic stenosis 3. Normal RV systolic pressure 4. No gross pericardial effusion Findings Left Ventricle Normal left ventricular cavity size. There is normal left ventricular wall thickness. The left ventricular systolic function is hyperdynamic. The visually estimated ejection fraction is >70%. Spectral Doppler is indicative of an impaired relaxation filling pattern. E/E prime ratio is <8, consistent with normal filling pressures. Evidence suggests grade I (mild) diastolic dysfunction. There is mild septal asymmetric hypertrophy. increased flow through the LVOT, without any clear obstructive physiology or dynamic obstruction. Most likely suggestive of high stroke volume Right Ventricle Normal right ventricular cavity size and systolic function. Atria The left atrium is severely dilated. There is no evidence of interatrial shunt. The right atrium is mildly dilated. Aortic Valve The aortic valve was not well visualized. There is mild calcification of the aortic valve. There is mild aortic valve stenosis. The peak aortic gradient is 15 mmHg.The mean gradient is 8 mmHg. The aortic valve area is 1.93 cm2. There is no aortic valve regurgitation. Mitral Valve There is moderate anterior and mild posterior mitral leaflet thickening. There is moderate mitral annular calcification. There is trace mitral valve regurgitation. There is no mitral valve stenosis. Pulmonic Valve The pulmonic valve was not well visualized. Tricuspid Valve Likely normal tricuspid valve structure and function. There is trace tricuspid valve regurgitation. The right ventricular systolic pressure is normal. The right ventricular systolic pressure is 29 mmHg. Normal right atrial pressure. There is no evidence of pulmonary hypertension. Great Vessels All visible segments of the aorta are normal in size. The pulmonary artery was not well visualized. There is no dilatation of the ascending aorta measuring 2.70 cm. Venous The inferior vena cava is normal in size and collapses greater than 50% with inspiration. Pericardium/Pleural There is no evidence of pericardial effusion. Prior Study Comparison No significant change compared to prior study dated: 01/03/2024. Measurements 2D Linear Measurements IVSd: 0.74 0.6-0.9/0.6-1.0 cm LVIDd: 4.88 3.9-5.3/4.2-5.9 cm LVIDd Index: 2.67 2.4-3.2/2.2-3.1 cm/m2 LVIDs: 2.55 2.0-3.6 cm LVPWd: 0.75 0.7-1.1 cm LA Diam: 4.50 2.7-3.8/3.0-4.0 cm LAIDs Index: 2.46 1.5-2.3 cm/m2 LV Mass: 147.82 67-162/88-224 g LV Mass Index: 80.78 43-95/49-115 g/m2 LVOT Diam: 1.80 3.0+(-)1.3 cm 2D Systolic Function EF 4C: 72.00 >55% EF 2C: 72.20 >55% EF BiP: 71.50 >55% Mitral Valve MV Pk E: 0.92 MV PK A: 1.22 MV Decel Time: 197.00 E/A: 0.80 E'Lateral: 6.74 E'Medial: 8.49 E/E' Med: 10.90 E/E' Lat: 13.70 PHT: 58.00 MVA PHT: 3.79 Decel Troup: 4.67 Aortic Valve AoV Pk Gerardo: 1.94 AoV Mn Gerardo: 1.32 AoV VTI: 0.45 AoV Pk Grad: 15.00 Aov Mn Grad: 8.00 MIGUELITO Cont.VTI: 1.93 LVOT LVOT Pk Gerardo: 1.55 LVOT Mn Gerardo: 1.00 LVOT VTI: 0.34 LVOT Pk Grad: 10.00 LVOT Mn Grad: 5.00 LVOT Diam: 1.80 LVOT Area: 2.54 Diastolic Function MV Pk E: 0.92 MV Pk A: 1.22 E/A: 0.80 E'Medial: 8.49 E/E' Med: 10.90 E' Laterial: 6.74 E/E' Lat: 13.70 Right Ventricle TAPSE (mm): 30.40 TVS' Gerardo: 18.00 Tricuspid Valve TR Pk Gerardo: 2.56 TR Pk Grad: 26.00 RA Press: 3.00 RVSP: 29.00 Great Vessels Aorta Sinus of Valsalva: 3.02 2.0-3.[address] Ridge: 2.06 1.7-3.4 cm Ao Asc: 2.70 2.1-3.4 cm Pulmonary Veins Pulm Vein S/D 1.40 Pulmonary Valve PV Pk Gerardo: 0.80 Peak PV Grad: 3.00 Updated in Other Vendor System with Status of Final Saen Pichardo MD electronically signed on 05/13/2025 4:27:10 PM with status of Final
== END ==
LOC: HO.CARD 14:58
PROVIDERS: PCP Internal Medicine; Visit Provider Hospitalist
DX: I10 Essential (primary) hypertension (principal); R01.1 Cardiac murmur, unspecified; N13.30 Unspecified hydronephrosis; Z99.89 Dependence on other enabling machines and devices; Z79.01 Long term (current) use of anticoagulants
CPT/HCPCS: 93306; 99212

== ENCOUNTER → 2025-05-13 15:03 | Outpatient (BNV) | payer MEDICARE, OTHER, SELFPAY | PROVIDERS: PCP Internal Medicine; Visit Provider Internal Medicine Cardiovascular Disease | DX: I42.2 Other hypertrophic cardiomyopathy (principal); I35.0 Nonrheumatic aortic (valve) stenosis | CPT/HCPCS: 93306 ==

== ENCOUNTER 2025-06-15 09:21 | Outpatient (AMB) | payer MEDICARE, OTHER, SELFPAY ==
--- NOTE | 2025-06-15 09:24 | MHC.OFFVIS ---
Vital Signs 06/15/25 09:25 Height 5 ft 4 in Weight 167 lb BMI 28.7 BP 128/76 Blood Pressure Location Lt brachial Position Sitting Respiration 16 Pulse 71 Pulse Source Pulse Oximeter Pulse Oximetry (%) 95 Oxygen Delivery Method Room Air Intake Visit Reasons: FOLLOW UP Office Support Required: No Allergies hydromorphone (From Dilaudid) Allergy (Severe, Verified 06/15/25 09:27) Confusion Sulfa Drugs Allergy (Severe, Uncoded 06/15/25 09:27) Rash Medication List - Last Reconciled 06/15/25 by Kallie Triana LPN alprazolam 0.5 mg PO BID PRN apixaban (Eliquis) 5 mg PO BID azelaic acid 15% 1 appl topical BID benzonatate 200 mg PO BID PRN 30 days calcium citrate 250 mg PO DAILY cholecalciferol (vitamin D3) 25 mcg PO DAILY CPAP (CPAP Machine/Device) As directed cyclosporine 0.05% (Restasis) 1 drp ophthalmic (eye) BID diltiazem HCl CD 120 mg PO DAILY empagliflozin (Jardiance) 10 mg PO DAILY fluticasone propionate 50 mcg/actuation 2 sprays intranasal DAILY PRN furosemide (Lasix) 20 mg PO DAILY lansoprazole 30 mg PO DAILY levalbuterol HCl 1.25 mg (3 mL) inhalation DAILY 30 days levalbuterol tartrate 45 mcg/actuation (Xopenex HFA) 2 puffs inhalation Q6H PRN 30 days lisinopril 20 mg PO DAILY mexiletine 300 mg PO BID multivitamin 1 tab PO DAILY nebulizers As directed Oxygen Home Use As directed pregabalin 25 mg PO TID rosuvastatin 20 mg PO DAILY sertraline 150 mg PO DAILY tiotropium bromide 2.5 mcg/actuation (Spiriva Respimat) 2 puffs inhalation QAM trazodone 50 mg PO BEDTIME PRN 30 days Ventolin HFA 90 mcg/actuation (albuterol sulfate) 2 puffs inhalation QID PRN 30 days NS HPI HPI FOLLOW UP: Details: History of Present Illness The patient is a 75-year-old female presenting with lower back pain. The pain has been persistent and severe, affecting her posture and daily activities. She reports that sitting upright provides some relief, and there are no new fractures noted on recent imaging. The patient has a history of osteoporosis, which complicates her condition and limits surgical options such as hip replacement. She consulted an orthopedic surgeon who advised against hip replacement due to her osteoporosis. The patient also experiences hip pain, which she initially thought was related to her knee pain. However, imaging ruled out knee issues, and the pain is now attributed to her hip and lower back. Additionally, she has limited neck mobility, which affects her ability to perform certain activities. Pain Description - Onset: Persistent lower back pain - Quality: Severe pain affecting posture - Location: Primarily lower back, sometimes radiating to hip - Exacerbating factors: Standing and bending forward - Relieving factors: Sitting upright - Interference: Affects daily activities and posture Physical Exam - Musculoskeletal: Positive facet loading for lower back pain, limited extension Results - Imaging: No new fractures noted on recent X-ray - Imaging: Knee X-ray showed no abnormalities - Oswestry Disability index for lower back is 50% Pain Management - Affect: Pain significantly impacts daily activities and posture - Analgesia: Considering radiofrequency ablation for pain relief - Activities of Daily Living: Pain affects standing and bending, requiring adjustments [facility] Medical History (Updated 06/16/25 @ 14:03 by Ciro Chan MD) Chest pain Premature ventricular contraction Bradycardia SOB (shortness of breath) Palpitations Dilated cardiomyopathy Mitral regurgitation Aortic atherosclerosis Vitamin D deficiency CAD (coronary artery disease) Restless leg syndrome Migraine Nephrolithiasis Cataract Depression Hiatal hernia GERD (gastroesophageal reflux disease) Oxygen dependent On anticoagulant therapy Elevated cholesterol Atrial fibrillation HTN (hypertension) On home oxygen therapy Systolic murmur Insomnia CHF (congestive heart failure) JACKIE (obstructive sleep apnea) Asthma Pulmonary hypertension Pulmonary emboli Dyspnea Surgical History Hx of cataract extraction History of esophagogastroduodenoscopy (EGD) H/O colonoscopy Hx of lithotripsy History of total bilateral knee replacement (TKR) Social History Are you a primary healthcare financial analyst to a significant other at home: No Do you presently have visiting nurse or other home services: No Patient Tobacco Use Status: Never used Tobacco Physical Exam Vital Signs: Last Vital Signs Pulse 71 06/15/25 09:25 Resp 16 06/15/25 09:25 BP 128/76 06/15/25 09:25 Pulse Ox 95 06/15/25 09:25 Oxygen Delivery Method Room Air 06/15/25 09:25 BMI result Body Mass Index 28.7 Assessment & Plan Assessment & Plan (1) Osteoporosis: Code(s): M81.0 - Age-related osteoporosis without current pathological fracture Category: Medical (2) Compression fracture of body of thoracic vertebra: Code(s): S22.000A - Wedge compression fracture of unspecified thoracic vertebra, initial encounter for closed fracture Category: Medical (3) Lumbar spondylosis: Code(s): M47.816 - Spondylosis without myelopathy or radiculopathy, lumbar region Category: Medical Plan Plan Patient was informed and verbally consented to the use of an ambient scribe for clinic note documentation during this visit. 1. Lower Back Pain/Lumbar Spondylosis - Plan to perform diagnostic medial branch blocks at L2, L3, L4 to confirm facetogenic pain. - Consideration for radiofrequency ablation if diagnostic blocks are successful. 2. Osteoporosis - Continue management with purchaser, focus on bone health and calcium intake. 3. Hip Pain - Monitor pain and assess for any changes in symptoms or function. Discussion Notes We discussed the potential for radiofrequency ablation to manage the patient's lower back pain, explaining the process and the need for diagnostic medial branch blocks first. The risks and benefits of the procedure were outlined, and the patient was informed about the multiple visits required. We also reviewed the management of osteoporosis with the purchaser, emphasizing the importance of bone health and calcium intake. Patient Instructions - Follow up with the purchaser for osteoporosis management. - Consider dietary adjustments to increase calcium intake. - Prepare for potential diagnostic medial branch blocks for lower back pain assessment. Coding Level of Care Code Est Pt Level 4 (76435) Diagnoses Osteoporosis M81.0 Compression fracture of body of thoracic vertebra S22.000A Lumbar spondylosis M47.816
[2025-06-15 09:25] VITALS: BP 128/76; PULSE 71; RESP 16; O2SAT 95; BMI 28.7
--- OUTSIDE RECORDS SUMMARY | 2025-06-15 10:23 | XMS_ITS | Encounter Summary ---
Author Organization [employer] Address 75 [facility] 7t [place] [address] Care Team Providers Care Plastic Manager Name Role Phone Sherice John MD Primary Care Provider [phone] Encounter Details Date Type Department Care Team (Late st Contact Info) Description 04/15/2025 Orders Only [facility] [address] [place] [address] Sherice John MD [address] [place] [address] Social History Tobacco Use Types Packs/Day Years [...] degree (e.g., DEVENDRA, MS, Luis Eduardo, MEd, JAVA DEVELOPER, [place]) 02/17/2025 Comments Unknown Sex and Gender [...] Info) Description 06/15/2025 11:40 AM EDT Telemedicine [address] [address] Sherice John MD [address] [place] [address] 08/04/2025 9:30 AM EST Office Visit [address] [address] Sherice John MD [address] [place] [address] documented as of this encounter Procedures Procedure [...] filedocumented in this encounter Care Teams Plastic Manager Relationship Specialty Start Date End Date Sherice John MD [address] [place] [address] PCP - General Internal Medicine 08/08/22 documented as of this encounter
--- OUTSIDE RECORDS SUMMARY | 2025-06-15 10:23 | XMS_ITS | Encounter Summary ---
Author Organization [employer] Address 75 [facility] 7t [place] [address] Care Team Providers Care Teacher Citizenship Name Role Phone Sherice John MD Primary Care Provider [phone] Encounter Details Date Type Department Care Team (Late st Contact Info) Description 05/02/2025 Orders Only [facility] [address] [place] [address] PcpGisela Unassigned Social History Tobacco Use Types [...] housing situation today? I have magdavesta hoskins 01/01/[address] you [...] degree (e.g., DEVENDRA, MS, Luis Eduardo, MEd, HOOP RIVETING MACHINE OPERATOR HELPER, [place]LIN) 02/17/2025 Comments Unknown Sex and Gender [...] Info) Description 06/15/2025 11:40 AM EDT Telemedicine [address] [address] Sherice John MD [address] [place] [address] 08/04/2025 9:30 AM EST Office Visit [address] [address] Sherice John MD [address] [place] [address] documented as of this encounter Procedures Procedure Name Priority Date/Time Associated Diagnosis Comments CT ANGIOGRAM CHEST INTERPRETATION Routine 04/14/2025 9:52 AM EDT documented in this encounter Results * CT angiogram chest interpretation (04/14/2025 9:52 AM EDT) Anatomical Region Laterality Modality Computed Tomogra phy [facility] P[facility] IMG CT PROCEDURES Final Result documented in this encounter Visit Diagnoses Not on filedocumented in this encounter Care Teams Teacher Citizenship Relationship Specialty Start Date End Date Sherice John MD [address] [place] [address] PCP - General Internal Medicine 08/08/22 documented as of this encounter
--- OUTSIDE RECORDS SUMMARY | 2025-06-15 10:23 | XMS_ITS | Encounter Summary ---
Author Organization [employer] Address 75 [facility] 7t [place] [address] Care Team Providers Care Industrial Training Specialist Name Role Phone Sherice John MD Primary Care Provider [phone] Encounter Details Date Type Department Care Team (Late st Contact Info) Description 05/04/2025 Results Follow-Up [facility] MEDICAL [address] [place] [address] Sherice John MD [address] [place] [address] [place] RENAL BI Social History Tobacco Use [...] degree (e.g., DEVENDRA, MS, Luis Eduardo, MEd, GRAIN DISTRIBUTOR, MARLIN) 02/17/2025 Comments Unknown Sex and Gender [...] Info) Description 06/15/2025 11:40 AM EDT Telemedicine [address] [address] Sherice John MD [address] [place] [address] 08/04/2025 9:30 AM EST Office Visit [address] [address] Sherice John MD [address] [place] [address] documented as of this encounter Visit Diagnoses Not on filedocumented in this encounter Care Teams Industrial Training Specialist Relationship Specialty Start Date End Date Sherice John MD [address] [place] [address] PCP - General Internal Medicine 08/08/22 documented as of this encounter
--- OUTSIDE RECORDS SUMMARY | 2025-06-15 10:23 | XMS_ITS | Encounter Summary ---
Author Organization [employer] Address 75 [facility] 7t [place] [address] Care Team Providers Care Volleyball Coach Name Role Phone Sherice John MD Primary Care Provider [phone] Reason for Visit * Reason Onset Date Comments Rx needs clairification 04/22/2024 Gabapent in Rx needs clarification Encounter Details Date Type Department Care Team (Late st Contact Info) Description 04/22/2024 Refill Gisela [facility] MEDICAL [address] [place] [address] Sherice John MD [address] [place] [address] Primary insomnia Social History Tobacco Use Types [...] Info) Description 06/15/2025 11:40 AM EDT Telemedicine [facility] [address] [place] [address] Sherice John MD [address] [place] [address] 08/04/2025 9:30 AM EST Office Visit [facility] [address] [place] [address] Sherice John MD [address] [place] [address] documented as of this encounter Visit Diagnoses Diagnosis Primary insomnia Persistent disorder of initiating or maintaining sleep documented in this encounter Care Teams Volleyball Coach Relationship Specialty Start Date End Date Sherice John MD [address] [place] [address] PCP - General Internal Medicine 08/08/22 documented as of this encounter
--- OUTSIDE RECORDS SUMMARY | 2025-06-15 10:23 | XMS_ITS | Encounter Summary ---
Author Organization [employer] Address [address] [facility] [address] 7t [place] [address] Care Team Providers Care Dialysis Clinical Manager Name Role Phone Sherice John MD Primary Care Provider [phone] Encounter Details Date Type Department Care Team (Latest Contact Info) Description 06/14/2025 Travel Social History Tobacco Use Types Packs/Day [...] degree (e.g., DEVENDRA, MS, Luis Eduardo, MEd, BLASTING MINER, MARLIN) 02/17/2025 Comments Unknown Sex and Gender [...] Info) Description 06/15/2025 11:40 AM EDT Telemedicine [facility] [address] [place] [address] Sherice John MD [address] [place] [address] 08/04/2025 9:30 AM EST Office Visit [address] [address] Sherice John MD [address] [place] [address] documented as of this encounter Visit Diagnoses Not on filedocumented in this encounter Care Teams Dialysis Clinical Manager Relationship Specialty Start Date End Date Sherice John MD [address] [place] [address] PCP - General Internal Medicine 08/08/22 documented as of this encounter
--- OUTSIDE RECORDS SUMMARY | 2025-06-15 10:23 | XMS_ITS | Encounter Summary ---
Author Organization [employer] Address 75 [facility] 7t [place] [address] Care Team Providers Care Pediatric Cns Name Role Phone Sherice John MD Primary Care Provider [phone] Encounter Details Date Type Department Care Team (Late st Contact Info) Description 09/23/2024 Orders Only [facility] [address] [place] [address] Sherice John MD [address] [place] [address] Social History Tobacco Use Types Packs/Day Years [...] Info) Description 06/15/2025 11:40 AM EDT Telemedicine [address] [address] Sherice John MD [address] [place] [address] 08/04/2025 9:30 AM EST Office Visit [address] [address] Sherice John MD [address] [place] [address] documented as of this encounter Procedures Procedure Name Priority Date/Time Associated Diagnosis Comments HM COLONOSCOPY Routine 05/06/2024 1:27 PM EDT documented in this encounter Results * Hm Colonoscopy (05/06/2024 1:27 PM EDT) Sherice John MD HEALTH MAINTENANCE Final Result documented in this encounter Visit Diagnoses Not on filedocumented in this encounter Care Teams Pediatric Cns Relationship Specialty Start Date End Date Sherice John MD [address] [place] [address] PCP - General Internal Medicine 08/08/22 documented as of this encounter
--- OUTSIDE RECORDS SUMMARY | 2025-06-15 10:23 | XMS_ITS | Encounter Summary ---
Author Organization [employer] Address 75 [facility] 7t [place] [address] Care Team Providers Care Property Condition Assessor Name Role Phone Sherice John MD Primary Care Provider [phone] Encounter Details Date Type Department Care Team (Late st Contact Info) Description 07/31/2023 Orders Only [facility] [address] [place] [address] Sherice John MD [address] [place] [address] Social History Tobacco Use Types Packs/Day Years [...] Info) Description 06/15/2025 11:40 AM EDT Telemedicine [facility] MEDICAL [address] [place] [address] Sherice John MD [address] [place] [address] 08/04/2025 9:30 AM EST Office Visit [address] [address] Sherice John MD [address] [place] [address] documented as of this encounter Procedures Procedure Name Priority Date/Time Associated Diagnosis Comments TSH Routine 07/30/2023 documented in this encounter Results * TSH (07/30/2023) Blood Venous blood specimen / Unknown us Sherice John MD LAB BLOOD ORDERABLES Edited Resu lt - Final documented in this encounter Visit Diagnoses Not on filedocumented in this encounter Care Teams Property Condition Assessor Relationship Specialty Start Date End Date Sherice John MD [address] [place] [address] PCP - General Internal Medicine 08/08/22 documented as of this encounter
--- OUTSIDE RECORDS SUMMARY | 2025-06-15 10:23 | XMS_ITS | Encounter Summary ---
Author Organization [employer] Address 75 [facility] 7t [place] [address] Care Team Providers Care Security Site Supervisor Name Role Phone Sherice John MD Primary Care Provider [phone] Encounter Details Date Type Department Care Team (Late st Contact Info) Description 01/07/2024 Orders Only [facility] [address] [place] [address] Sherice John MD [address] [place] [address] Social History Tobacco Use Types Packs/Day Years [...] Info) Description 06/15/2025 11:40 AM EDT Telemedicine [address] [address] Sherice John MD [address] [place] [address] 08/04/2025 9:30 AM EST Office Visit [address] [address] Sherice John MD [address] [place] [address] documented as of this encounter Procedures Procedure [...] filedocumented in this encounter Care Teams Security Site Supervisor Relationship Specialty Start Date End Date Sherice John MD [address] [place] [address] PCP - General Internal Medicine 08/08/22 documented as of this encounter
--- OUTSIDE RECORDS SUMMARY | 2025-06-15 10:23 | XMS_ITS | Encounter Summary ---
Author Organization [employer] Address 75 [facility] 7t [place] [address] Care Team Providers Care Jet Worker Name Role Phone Sherice John MD Primary Care Provider [phone] Encounter Details Date Type Department Care Team (Late st Contact Info) Description 12/07/2023 Orders Only [facility] [address] [place] [address] Sherice John MD [address] [place] [address] Social History Tobacco Use Types Packs/Day Years [...] Info) Description 06/15/2025 11:40 AM EDT Telemedicine [address] [address] Sherice John MD [address] [place] [address] 08/04/2025 9:30 AM EST Office Visit [address] [address] Sherice John MD [address] [place] [address] documented as of this encounter Procedures Procedure [...] on filedocumented in this encounter Care Teams Jet Worker Relationship Specialty Start Date End Date Sherice John MD [address] [place] [address] PCP - General Internal Medicine 08/08/22 documented as of this encounter
--- OUTSIDE RECORDS SUMMARY | 2025-06-15 10:23 | XMS_ITS | Encounter Summary ---
Author Organization [employer] Address 75 [facility] 7t [place] [address] Care Team Providers Care Elder Counselor Name Role Phone Sherice John MD Primary Care Provider [phone] Encounter Details Date Type Department Care Team (Late st Contact Info) Description 08/25/2023 Orders Only [facility] [address] [place] [address] Sherice John MD [address] [place] [address] Social History Tobacco Use Types Packs/Day Years [...] Info) Description 06/15/2025 11:40 AM EDT Telemedicine [facility] MEDICAL [address] [place] [address] Sherice John MD [address] [place] [address] 08/04/2025 9:30 AM EST Office Visit [address] [address] Sherice John MD [address] [place] [address] documented as of this encounter Procedures Procedure Name Priority Date/Time Associated Diagnosis Comments XR CHEST 2 VIEWS Routine 08/17/2023 documented in this encounter Results * XR Chest 2 Views (08/17/2023) Anatomical Region Laterality Modality Chest Radiographic Tami ging Sherice John MD IMG XR PROCEDURES Edited Result - Final documented in this encounter Visit Diagnoses Not on filedocumented in this encounter Care Teams Elder Counselor Relationship Specialty Start Date End Date Sherice John MD [address] [place] [address] PCP - General Internal Medicine 08/08/22 documented as of this encounter
--- OUTSIDE RECORDS SUMMARY | 2025-06-15 10:23 | XMS_ITS | Encounter Summary ---
Author Organization [employer] Address 75 [facility] 7t [place] [address] Care Team Providers Care Sign Designer Name Role Phone Sherice John MD Primary Care Provider [phone] Encounter Details Date Type Department Care Team (Late st Contact Info) Description 02/24/2025 Orders Only [facility] [address] [place] [address] Sherice John MD [address] [place] [address] Social History Tobacco Use Types Packs/Day Years [...] degree (e.g., DEVENDRA, MS, Luis Eduardo, MEd, PARTY PLAN SALES CONSULTANT, [place]) 02/17/2025 Comments Unknown Sex and [...] Description 06/15/2025 11:40 AM EDT Telemedicine [address] [address] Sherice John MD [address] [place] [address] 08/04/2025 9:30 AM EST Office Visit [address] [address] Sherice John MD [address] [place] [address] documented as of this encounter Procedures Procedure [...] on filedocumented in this encounter Care Teams Sign Designer Relationship Specialty Start Date End Date Sherice John MD [address] [place] [address] PCP - General Internal Medicine 08/08/22 documented as of this encounter
--- OUTSIDE RECORDS SUMMARY | 2025-06-15 10:23 | XMS_ITS | Encounter Summary ---
Author Organization [employer] Address 75 [facility] 7t [place] [address] Care Team Providers Care Food Service Associate Name Role Phone Sherice John MD Primary Care Provider [phone] Encounter Details Date Type Department Care Team (Late st Contact Info) Description 10/01/2023 Orders Only [facility] [address] [place] [address] Sherice John MD [address] [place] [address] Social History Tobacco Use Types Packs/Day Years [...] Info) Description 06/15/2025 11:40 AM EDT Telemedicine [facility] MEDICAL [address] [place] [address] Sherice John MD [address] [place] [address] 08/04/2025 9:30 AM EST Office Visit [address] [address] Sherice John MD [address] [place] [address] documented as of this encounter Procedures Procedure Name Priority Date/Time Associated Diagnosis Comments CBC WITH AUTO DIFFERENTIAL Routine 10/01/2023 documented in this encounter Results * CBC auto differential (10/01/2023) Blood Venous blood specimen / Unknown Sherice John MD LAB BLOOD ORDERABLES Edited Resu lt - Final documented in this encounter Visit Diagnoses Not on filedocumented in this encounter Care Teams Food Service Associate Relationship Specialty Start Date End Date Sherice John MD [address] [place] [address] PCP - General Internal Medicine 08/08/22 documented as of this encounter
--- OUTSIDE RECORDS SUMMARY | 2025-06-15 10:23 | XMS_ITS | Clinical Summary ---
Author Organization [employer] Address [address] [facility] 7t [place] [address] Care Team Providers Care Landscape Technician Name Role Phone Sherice John MD Primary Care Provider [phone] Allergies Active Allergy Reactions Criticality Noted Date [...] wheezing. 72 mL 2 12/05/19 23 Active sertraline (Zoloft) 100 MG tablet [...] PUFFS IN THE MORNING 4 each 11 04/01/20 24 Active benzonatate (Tessalon) 200 MG capsule 04/24/20 [...] DAY 180 tablet 3 12/03/19 25 Active fluticasone (Flonase) 50 MCG/ACT nasal spray Administer 2 sprays into each nostril Once per day. 02/03/20 21 Active Suzetrigine (Journavx) 50 MG tablet TAKE 1 TABLET BY MOUTH TWICE A DAY FOR 28 DAYS Active rosuvastatin (Crestor) 20 MG tabletIndicatio ns:High cholesterol TAKE 1 TABLET BY MOUTH EVERY DAY 90 tablet 3 03/06/20 25 Active lisinopril 20 MG tabletIndicatio ns:Essential hypertension Take 1 tablet (20 mg) by mouth Once per day. 90 tablet 3 03/12/20 25 2025 Active Ventolin HFA 108 (90 Base) MCG/ACT inhaler 2 PUFF INHALED 4 TIMES A DAY NEEDED FOR SHORTNESS OF BREATH OR WHEEZING FOR 30 DAYS 04/13/20 25 Active furosemide (Lasix) 20 MG tablet TAKE 2 TABLETS ORALLY DAILY FOR EDEMA FOR 30 DAYS 03/26/20 25 Active guaiFENesin-cod eine (Robitussin-AC) 100-10 MG/5ML syrup TAKE 10 ML BY MOUTH EVERY 6 HOURS NEEDED FOR COUGH FOR 10 DAYS 04/14/20 25 Active pregabalin (Lyrica) 25 MG capsuleIndicati ons:Sciatica of right side Take 1 capsule (25 mg) by mouth 3 times daily. 90 capsule 5 05/01/20 25 2025 Active levalbuterol (Xopenex) 45 MCG/ACT inhalerIndicati ons:Moderate persistent asthma without complication Inhale 1 puff every 4 (four) hours if needed for wheezing. 15 g 1 05/01/20 25 2025 Active denosumab (Prolia) 60 MG/ML solution prefilled syringeIndicati ons:Age-related osteoporosis with current pathological fracture with delayed healing, subsequent encounter INJECT 1 SYRINGE UNDER THE SKIN ONCE EVERY 6 MONTHS 1 mL 06/02/20 25 Active denosumab (Prolia) 60 MG/ML solution prefilled syringeIndicati ons:Age-related osteoporosis with current pathological fracture with delayed healing, subsequent encounter Inject 1 mL (60 mg) under the skin 1 (one) time for 1 dose. 1 mL 12/19/19 25 2024 Discontinued Active Problems Problem Noted Date [...] will f/up with both her pulm and processing assistant , continue daily weights and report if greater than 2 lb wt gain day to day or 5 lbs in one week. Self monitor closely for any new open wounds or bleeding as she is taking Eliquis 5 mg PO BID d/t hx PE and pulm HTN, ?cardiomyopathy, ? CHF. Recommended schedule her pulm and processing assistant followup visits soon and agrees to do [...] EDT): Encouraged to keep current with her enterprise sales person and processing assistant given her multple complex pulm and cardio health diagnoses and history. Savannah's bp somewhat elevated and will self monitor bp/pulse and 02 sat daily and make/keep PCP, pulm and processing assistant followup visits and agrees to consult with reg shop assistant for dietary advice to help with her [...] CAD (coronary artery disease) 03/25/2019 Dilated cardiomyopathy (CMS/HCC) 03/25/2019 Overview (03/26/2023): 11/2018 CAIT: severly dilated Left atrium Cataract 03/25/2019 Overview (03/26/2023): Bilateral Bilateral Depression 03/25/2019 Mitral valve regurgitation 03/25/2019 Overview (03/26/2023): 11/2018 CAIT: Mild 11/2018 CAIT: Mild Osteoarthritis 03/25/2019 Overview (03/26/2023): Knees Knees Osteoporosis 03/25/2019 Total knee replacement status 03/25/2019 Overview (03/26/2023): 2018 Left 2018 Left Vitamin D deficiency 03/25/2019 Pulmonary hypertension (CMS/HCC) 02/07/2019 Overview (03/26/2023): Followed by cardiolgoy 11/22/18 [...] on the results of her echocardiogram from [facility] and discussed with her if there are actionable findings. I did encourage her to follow-up with her new enterprise sales person to determine if there are further investigations or treatment warranted for pulmonary hypertension. 11/22/18 CAIT: Mild Assessment & Plan (06/25/2024 8:30 PM EST): Followed by cardiology and also pulm HTN specialist in [place] Dr. Tangela Deleon. See HPI, encouraged to f/up both with her processing assistant who is prescribing her torsemide and with [...] Encounters Date Type Department Care Team Description 06/14/2025 Travel 06/02/[address] [address] Sherice John MD Age-related osteoporosis with current pathological fracture with delayed healing, subsequent encounter [address] [address] Sherice John MD 05/04/2025 Results Follow-Up [address] [address] Sherice John MD US RENAL BI 05/04/2025 Orders Only [facility] Information [address] [address] Sherice John MD 05/04/[address] [address] Sherice John MD Prior Authorization (pregabalin) 05/02/2025 Orders Only [facility] Information [address] [address] Pcp, [place] Unassigned 05/01/2025 10:00 AM EDT Office Visit [address] [address] Sherice John MD Closed fracture of sternum [...] Travel 04/30/2025 10:30 AM EDT Office Visit [facility] [address] [place] [address] Parris Torres, OD Glaucoma suspect of both eyes (Primary Dx); Keratitis sicca, bilateral; Presbyopia of both eyes 04/24/2025 Travel 04/24/[address] [address] Sherice John MD Primary insomnia 04/15/2025 Orders Only [facility] Information [address] [address] Sherice John MD 04/08/[address] [address] Sherice John MD ED visit 04/08/2025 Orders Only [facility] MEDICAL [address] [place] [address] ProviderKiersten MD 03/16/[address] [address] Sherice John MD tick bite on left shoulder from Last 3 Months Immunizations Immunization Administration [...] degree (e.g., MA, MS, Luis Eduardo, MEd, FRAMING MILL OPERATOR, MARLIN) 02/17/2025 Comments Unknown Sex and [...] Info) Description 06/15/2025 11:40 AM EDT Telemedicine [facility] MEDICAL [address] [place] [address] Sherice John MD [address] [place] [address] 08/04/2025 9:30 AM EST Office Visit [facility] [address] [place] [address] Sherice John MD [address] [place] [address] Health Maintenance Due Date Last Done Comments [...] Date/Time Associated Diagnosis Comments AMB REFERRAL TO CARDIOTHORACIC SURGERY Urgent 05/21/2025 Closed fracture of sternum with nonunion, unspecified portion of sternum, subsequent encounter AMB REFERRAL TO ENDOCRINOLOGY Routine 05/21/2025 Non-traumatic compression fracture of L4 lumbar vertebra with delayed healing, subsequent encounter Osteoporosis with current pathological fracture, unspecified osteoporosis type, sequela US RENAL BI Routine 05/04/2025 10:56 AM EDT OCT, OPTIC NERVE - OU - BOTH EYES Routine 04/30/2025 Glaucoma suspect of both eyes XR LUMBOSACRAL SPINE 1 VW Routine 04/14/2025 9:[address] ANGIOGRAM CHEST INTERPRETATION Routine 04/14/2025 9:52 AM EDT XR CHEST 2 VIEWS Routine 04/06/2025 11:2 8 AM EDT HM COLONOSCOPY Routine 05/06/2024 1:27 PM EDT BI MAMMOGRAM SCREENING TOMOSYNTHESIS BILATERAL Routine 01/01/2024 2:48 PM EDT LIPID PANEL, STANDARD Routine 09/07/2022 12:08 PM EST High cholesterol PAP SMEAR Routine 02/01/2016 12:00 AM EDT HEPATITIS C ANTIBODY (EXTERNAL RESULTS ONLY) Routine 08/20/2011 3:22 PM EST from Last 3 Months or Most Recently Relevant to Health Maintenance Results * Referral to Endocrinology (05/21/2025) us Sherice John MD OUTPATIENT REFERRAL ORDERABLES F inal Result * Referral to Cardiothoracic Surgery (05/21/2025) Result Candace John MD OUTPATIENT REFERRAL ORDERABLES F inal Result * US RENAL BI (05/04/2025 10:56 AM EDT) Anatomical Region Laterality Modality Abdomen Ultrasound us Sherice John MD IMG US PROCEDURES Final Result * OCT, Optic Nerve - OU - Both Eyes (04/30/2025) Impressions Parris Torres, OD - 04/30/2025 Right eye (OD): RNFL/GCC is normal; stable Left eye (OS): RNFL/GCC is normal; stable Result [facility] us Parris Torres OD OPHTH TOMOGRAPHY Final Result * XR LUMBOSACRAL SPINE 1 VW (04/14/2025 9:53 AM EDT) Anatomical Region Laterality Modality Radiographic Tami ging Result Candace John MD IMG XR PROCEDURES Final Result * CT angiogram chest interpretation (04/14/2025 9:52 AM EDT) Anatomical Region Laterality Modality Computed Tomogra phy us [place] Unassigned Pcp IMG CT PROCEDURES Final Result * XR Chest 2 Views (04/06/2025 11:28 AM EDT) Anatomical Region Laterality Modality Chest Radiographic Tami ging us Kiersten Dick MD IMG XR PROCEDURES Final R esult * Hm Colonoscopy (05/06/2024 1:27 PM EDT) Result Candace John MD HEALTH MAINTENANCE Final Result * BI Mammogram Screening Tomosynthesis Bilateral (01/01/2024 2:48 PM EDT) Anatomical Region Laterality Modality Breast Bilateral Mammography Result [facility] Sherice John MD IMG BI PROCEDURES Final Result * Lipid panel (09/07/2022 12:08 PM EST) Cholesterol, Total 164 (<200) MG/DL [facility] Triglyceride (mg/dL) in Serum/Plasma 83 (<150) MG/DL [facility] HDL Cholesterol 75 (>39) MG/DL [facility] LDL Cholesterol, Calculated 72 (0-130) MG/DL [facility] Non HDL Chol. (LDL+VLDL) 89 (<160) MG/DL [facility] Comment: Testing performed or reported by [facility], a Service of [facility], [address] [place] [address] Lulu Masters MD, Cable Tool Driller [facility]# [id number] Blood Venous blood specimen / Unknown 09/07/2022 12:08 PM EST 09/07/2022 12:10 PM EST Result [facility] Sherice John MD LAB BLOOD ORDERABLES Final Resul t [address] [address] * Pap Smear (02/01/2016 12:00 AM EDT) Swab Result [facility] Historical Provider LAB CYTOLOGY ORDERABLES F inal Result * Hepatitis C Antibody (08/20/2011 3:22 PM EST) Hepatitis C Antibody Nonreactive Blood 08/20/2011 3:22 PM EST Result [facility] Historical Provider POINT OF CARE TEST ENTER/ EDIT ORDERABLES Final Result from Last 3 Months or Most Recently Relevant to Health Maintenance Insurance [facility] MEDICARE REPLACEMENT Member Subscriber Plan / Payer (Ef fective 2024-Present) Name:Mary Delgado Relation to Subscriber:Self Name:Mary Delgado Payer ID:[id number] (NAIC) Type:Not on file Address: [place] [id number] [facility] MEDICARE REPLACEMENT Care Teams Landscape Technician Relationship Specialty Start Date End Date Sherice John MD [address] [place] [address] PCP - General Internal Medicine 08/08/22
--- OUTSIDE RECORDS SUMMARY | 2025-06-15 10:23 | XMS_ITS | Encounter Summary ---
Author Organization [employer] Address [address] [facility] 7t [place] [address] Care Team Providers Care Pipe Liner Name Role Phone Sherice John MD Primary Care Provider [phone] Encounter Details Date Type Department Care Team (Late st Contact Info) Description 05/04/2025 Orders Only [facility] [address] [place] [address] Sherice John MD [address] [place] [address] Social History Tobacco Use Types Packs/Day Years [...] degree you have received? Master's degree (e.g., EDVENDRA, MS, Luis Eduardo, MEd, MONTESSORI PARAPROFESSIONAL, MARLIN) 02/17/2025 Comments Unknown Sex and [...] Info) Description 06/15/2025 11:40 AM EDT Telemedicine [address] [address] Sherice John MD [address] [place] [address] 08/04/2025 9:30 AM EST Office Visit [address] [address] Sherice John MD [address] [place] [address] documented as of this encounter Procedures Procedure Name Priority Date/Time Associated Diagnosis Comments US RENAL BI Routine 05/04/2025 10:56 AM EDT documented in this encounter Results * US RENAL BI (05/04/2025 10:56 AM EDT) Anatomical Region Laterality Modality Abdomen Ultrasound us Sherice John MD IMG US PROCEDURES Final Result documented in this encounter Visit Diagnoses Not on filedocumented in this encounter Care Teams Pipe Liner Relationship Specialty Start Date End Date Sherice John MD [address] [place] [address] PCP - General Internal Medicine 08/08/22 documented as of this encounter
--- OUTSIDE RECORDS SUMMARY | 2025-06-15 10:23 | XMS_ITS | Encounter Summary ---
Author Organization [employer] Address 75 [facility] 7t [place] [address] Care Team Providers Care Civil Rights Representative Name Role Phone Sherice John MD Primary Care Provider [phone] Encounter Details Date Type Department Care Team (Late st Contact Info) Description 05/14/2024 Orders Only [facility] [address] [place] [address] Sherice John MD [address] [place] [address] Social History Tobacco Use Types Packs/Day Years [...] Info) Description 06/15/2025 11:40 AM EDT Telemedicine [address] [address] hSerice John MD [address] [place] [address] 08/04/2025 9:30 AM EST Office Visit [address] [address] Sherice John MD [address] [place] [address] documented as of this encounter Procedures Procedure Name Priority Date/Time Associated Diagnosis Comments PATHOLOGY REPORT (HISTOPATHOLOGY) Routine 05/06/2024 11:01 AM EDT PATHOLOGY REPORT (HISTOPATHOLOGY) Routine 05/05/2024 11:01 AM EDT documented in this encounter Results * Pathology Report (Histopathology) (05/06/2024 11:01 AM EDT) Tissue us Sherice Jonh MD LAB PATHOLOGY ORDERABLES Final R esult * Pathology Report (Histopathology) (05/05/2024 11:01 AM EDT) Tissue us Sherice John MD LAB PATHOLOGY ORDERABLES Final R esult documented in this encounter Visit Diagnoses Not on filedocumented in this encounter Care Teams Civil Rights Representative Relationship Specialty Start Date End Date Sherice John MD [address] [place] [address] PCP - General Internal Medicine 08/08/22 documented as of this encounter
--- OUTSIDE RECORDS SUMMARY | 2025-06-15 10:23 | XMS_ITS | Encounter Summary ---
Author Organization [employer] Address 75 [facility] 7t [place] [address] Care Team Providers Care Fabrication Supervisor Name Role Phone Sherice John MD Primary Care Provider [phone] Encounter Details Date Type Department Care Team (Late st Contact Info) Description 12/19/2023 Orders Only [facility] [address] [place] [address] Sherice John MD [address] [place] [address] Social History Tobacco Use Types Packs/Day Years [...] Info) Description 06/15/2025 11:40 AM EDT Telemedicine [address] [address] Sherice John MD [address] [place] [address] 08/04/2025 9:30 AM EST Office Visit [address] [address] Sherice John MD [address] [place] [address] documented as of this encounter Procedures Procedure [...] on filedocumented in this encounter Care Teams Fabrication Supervisor Relationship Specialty Start Date End Date Sherice John MD [address] [place] [address] PCP - General Internal Medicine 08/08/22 documented as of this encounter
--- OUTSIDE RECORDS SUMMARY | 2025-06-15 10:23 | XMS_ITS | Encounter Summary ---
Author Organization [employer] Address 75 [facility] 7t [place] [address] Care Team Providers Care Salesperson Meats Name Role Phone Sherice John MD Primary Care Provider [phone] Encounter Details Date Type Department Care Team (Late st Contact Info) Description 04/08/2025 Orders Only [facility] MEDICAL [address] [place] [address] Provider, MD Kiersten Social History Tobacco Use [...] degree (e.g., DEVENDRA, MS, Luis Eduardo, MEd, RADIAL DRILL OPERATOR FOR PLASTIC, MARLIN) 02/17/2025 Comments Unknown Sex and Gender [...] Info) Description 06/15/2025 11:40 AM EDT Telemedicine [address] [address] Sherice John MD [address] [place] [address] 08/04/2025 9:30 AM EST Office Visit [address] [address] Sherice John MD [address] [place] [address] documented as of this encounter Procedures Procedure [...] on filedocumented in this encounter Care Teams Salesperson Meats Relationship Specialty Start Date End Date Sherice John MD [address] [place] [address] PCP - General Internal Medicine 08/08/22 documented as of this encounter
--- OUTSIDE RECORDS SUMMARY | 2025-06-15 10:23 | XMS_ITS | Clinical Summary ---
Author Organization [facility] Address [address] [place] [address] Care Team Providers Care Plywood Scarfer Tender Name Role Phone Sherice John MD [...] - 2023-2 5 season) 2025 RSV Vaccine 50 years and old er and Patients (1 - 1-dose 75+ series) 2027 Hepatitis B Vaccines Aged Out No long er eligible based on patient's age to complete this topic Insurance MEDICARE PART A & B [facility] Care Teams Plywood Scarfer Tender Relationship Specialty Start Date End Date Sherice John MD [address] [place] [address] PCP - General 12/12/18
--- OUTSIDE RECORDS SUMMARY | 2025-06-15 10:23 | XMS_ITS | Encounter Summary ---
Author Organization [employer] Address 75 [facility] 7t [place] [address] Care Team Providers Care Gerontological Nurse Practitioner Name Role Phone Sherice John MD Primary Care Provider [phone] Encounter Details Date Type Department Care Team (Late st Contact Info) Description 12/22/2024 Orders Only [facility] [address] [place] [address] Sherice John MD [address] [place] [address] Social History Tobacco Use Types Packs/Day Years [...] Description 06/15/2025 11:40 AM EDT Telemedicine [address] [address] Sherice John MD [address] [place] [address] 08/04/2025 9:30 AM EST Office Visit [address] [address] Sherice John MD [address] [place] [address] documented as of this encounter Procedures Procedure [...] on filedocumented in this encounter Care Teams Gerontological Nurse Practitioner Relationship Specialty Start Date End Date Sherice John MD [address] [place] [address] PCP - General Internal Medicine 08/08/22 documented as of this encounter
--- OUTSIDE RECORDS SUMMARY | 2025-06-15 10:23 | XMS_ITS | Encounter Summary ---
Author Organization [employer] Address 75 [facility] 7t [place] [address] Care Team Providers Care Safety Companion Name Role Phone Sherice John MD Primary Care Provider [phone] Encounter Details Date Type Department Care Team (Late st Contact Info) Description 01/16/2024 Orders Only [facility] MEDICAL [address] [place] [address] Provider, MD Kiersten Social History Tobacco Use [...] Description 06/15/2025 11:40 AM EDT Telemedicine [address] [address] Sherice John MD [address] [place] [address] 08/04/2025 9:30 AM EST Office Visit [address] [address] Sherice John MD [address] [place] [address] documented as of this encounter Procedures Procedure Name Priority Date/Time Associated Diagnosis Comments TRANSTHORACIC ECHO (TTE) COMPLETE Routine 01/03/2024 4:27 AM EDT documented in this encounter Results * Transthoracic echo (TTE) complete (01/03/2024 4:27 AM EDT) us Historical Provider MD ZAMUDIO ECHO PROCEDURES Final Result documented in this encounter Visit Diagnoses Not on filedocumented in this encounter Care Teams Safety Companion Relationship Specialty Start Date End Date Sherice John MD [address] [place] [address] PCP - General Internal Medicine 08/08/22 documented as of this encounter
--- OUTSIDE RECORDS SUMMARY | 2025-06-15 10:24 | XMS_ITS | Encounter Summary ---
Author Organization [employer] Address 75 [facility] 7t [place] [address] Care Team Providers Care Environmental Services Aide Name Role Phone Pauline John MD Primary Care Provider [phone] Reason for Visit * Reason Onset Date Comments Medication Problem 05/25/2023 Encounter Details Date Type Department Care Team (Late st Contact Info) Description 05/25/[address] [facility] MEDICAL [address] [place] [address] Pauline John MD [address] [place] [address] Medication Problem Social History Tobacco Use Types [...] 11:50 AM EDT Had a apt with [place] on Sunday she was due to change medication she is taking not seeing any prescriptions in file. documented in this encounter Plan of Treatment Upcoming Encounters Date Type Department Care Team (Late st Contact Info) Description 06/15/2025 11:40 AM EDT Telemedicine [facility] [address] [place] [address] Pauline John MD [address] [place] [address] 08/04/2025 9:30 AM EST Office Visit [facility] [address] [place] [address] Pauline John MD [address] [place] [address] documented as of this encounter Visit Diagnoses Not on filedocumented in this encounter Care Teams Environmental Services Aide Relationship Specialty Start Date End Date Pauline John MD [address] [place] [address] PCP - General Internal Medicine 08/08/22 documented as of this encounter
--- OUTSIDE RECORDS SUMMARY | 2025-06-15 10:24 | XMS_ITS | Clinical Summary ---
Author Organization [facility] [employer] [facility] Address [address] [place] [address] Phone Care Team Providers Care Senior Information Security Analyst Name Role Phone Sherice John MD Primary Care Provider [phone] Allergies Active Allergy Reactions Criticality Noted Date [...] Continue diltiazem and mexiletine. [place] [facility] [place]. Seasonal allergies 11/07/2022 Moderate persistent [...] defer management of this issue to her fructose loader. Fortunately her dyspnea on exertion has been stable and is not significantly interfering with her quality of life. Mild persistent asthma 02/07/2019 GERD (gastroesophageal reflux disease) 9 Immunizations Immunization Administration Dates Next Due Influenza trivalent, 0.5mL, [...] KNEE REPLACE KIDNEY STONE SURGERY 01/2017 PROCEDURE: [place] NEPHROLITHOTOMY REMOVAL CALCULUS; COMMENT: Ureteroscopy/stone removal /stent [...] [facility] [address] [place] [id number] Dante Ghotra NP [address] [place] [address] [place] [address] Health Maintenance Due Date Last Done Comments Colorectal Cancer Screening: Colonoscopy 1950 Zoster Vaccines (1 of 2) 2002 DTaP,Tdap,and Td Vaccines (2 - Td or Tdap) 05/10/2022 05/10/2012 Falls Risk Assessment 07/29/2022 Hepatitis C Screening [...] metabolic panel (06/25/2024 12:42 PM EST) Pathologist [facility] Glucose 85 70 - 99 mg/dL [facility] [...] 06/26/2024 4:07 AM EST Performed at: [address] [id number] Border Inspector: Trudy Zamudio MD, Phone: [phone] Reshma Bartolucci SCIENCE AND OPERATIONS OFFICER LAB BLOOD ORDERABLES Final R esult [facility] 1 from Last 3 Months or Most Recently Relevant to Health Maintenance Insurance MEDICARE [facility] Care Teams Senior Information Security Analyst Relationship Specialty Start Date End Date Sherice John MD [address] [place] [address] PCP - General Internal Medicine 01/10/19
== END 2025-06-15 10:15 | disposition home or self-care (01) ==
LOC: HO.PMC 09:22
PROVIDERS: PCP Internal Medicine; Visit Provider Internal Medicine
DX: M81.0 Age-related osteoporosis without current pathological fracture (principal); S22.000A Wedge compression fracture of unspecified thoracic vertebra, initial encounter for closed fracture; M47.816 Spondylosis without myelopathy or radiculopathy, lumbar region
CPT/HCPCS: 99214

== ENCOUNTER → 2025-06-15 09:21 | Outpatient (BNVA) | payer MEDICARE, OTHER, SELFPAY | PROVIDERS: PCP Internal Medicine; Visit Provider Internal Medicine | DX: M47.816 Spondylosis without myelopathy or radiculopathy, lumbar region (principal); M81.0 Age-related osteoporosis without current pathological fracture; S22.000A Wedge compression fracture of unspecified thoracic vertebra, initial encounter for closed fracture; M25.559 Pain in unspecified hip | CPT/HCPCS: 99212 ==

== ENCOUNTER 2025-06-22 11:11 | Outpatient (AMB) | payer MEDICARE, OTHER, SELFPAY ==
--- OUTSIDE RECORDS SUMMARY | 2020-05-27 10:40 | XMS_ITS | Encounter Summary ---
Author Organization [facility] Address [address] [place] [address] [place] [address] Phone Care Team Providers Care Licensed Tax Consultant Name Role Phone Sherice John MD Primary Care Provider [phone] Encounter Details Date Type Department Care Team (Late st Contact Info) Description 05/27/2020 11:40 AM EDT Hospital Encounter [facility] Care 12 [place] [address] Guido Frankel PA [address] [place] [address] [email or web address] Social History Tobacco Use Types Packs/Day Years Used Date Smoking Tobacco: Never Smokeless Tobacco: Never Alcohol Use Standard Drinks/Week Comments Yes 2 (1 standard drink = 0.6 oz pur e alcohol) Socially 5x/week Education Answer Date Recorded Are you interested in more education? Not on leland e 12/15/2022 Are you concerned about learning? Not on file 12/15/2022 No 12/15/2022 No 12/15/2022 Digital Access Answer Date Recorded No 01/15/2023 No 01/15/2023 Reliable internet access at home? Not on file 01/15/2023 Device with a working camera? Not on file Intimate Partner Violence Answer Date R ecorded Are you denied basic needs s uch as food, clothing, or medical care? No 02/10/2025 In the past 12 months have y ou been in a relationship with a person who hurts, threatens, or tries to control you? No 02/10/2025 Are you denied basic needs s uch as food, clothing, or medical care? No 02/10/2025 In the past 12 months have y ou been in a relationship with a person who hurts, threatens, or tries to control you? No 02/10/2025 Comments No Sex and Gender Information Value Date Recorded Sex Assigned at Female 10/21/2019 7:29 PM EST Legal Sex Female 9:59 PM EDT Gender Identity Female 10/21/2019 7:29 PM EST Sexual Orientation Straight 05/01/2023 1: 58 PM EDT documented as of this encounter Functional Status * Calculated C-SSRS Risk Score (Lifetime/Recent) Answer Date of Assessment Author No Risk Indicated 02/10/2025 6:23 PM EDT Tami Jorge RN * [place] Suicide Severity Rating Scale (Screener/Recent Self-Report) Question Answer Date of Assessment Author 1. Wish to be (Past 1 Month) No 025 6:23 PM EDT Tami Jorge RN 2. Non-Specific Active Suici wendie Thoughts (Past 1 Month) No 02/10/2025 6:23 PM EDT Marek Jorge RN 6. Suicidal Behavior (Lifetime) No 5 6:23 PM EDT Tami Jorge RN documented as of this encounter Plan of Treatment Upcoming Encounters Date Type Department Care Team (Late st Contact Info) Description 09/28/2025 1:20 PM EST Office Visit [facility] [address] [place] [address] Rogelio Torrez DO [address] [place] [address] [email or web address] 11/25/2025 1:15 PM EDT Appointment [facility], Bone Density [address] [address] Rogelio Torrez DO [address] [place] [address] [email or web address] 12/10/2025 10:40 AM EDT Blood Draw [facility] 30 [place] [address] Lulú Vizcaino MBBS 30 [place] [address] [email or web address] 12/10/2025 11:40 AM EDT Office Visit [facility] [place] 30 [place] [address] Lulú Vizcaino MB 30 [place] [address] [email or web address] 03/03/2026 8:30 AM EDT Telemedicine [facility] [place] [facility]ia Service 32 [facility], 5th Floor, [address] [place] [address] Angel Domínguez MD 55 [facility] [address] [place] [address] [email or web address] documented as of this encounter Procedures Procedure Name Priority Date/Time Associated Diagnosis Comments XR TOES 2 OR MORE VIEWS (RIGHT) Urgent/patient waiting 05/27/2020 11:51 AM EDT Pain of right great toe documented in this encounter Results * XR Toes 2 or More (Right) (05/27/2020 11:51 AM EDT) Anatomical Region Laterality Modality Foot Right Radiographic Tami ging 05/27/2020 11:5 5 AM EDT Impressions 05/27/2020 11:57 AM EDT Nondisplaced distal phalangeal fracture or fractures POS [id number] Narrative 05/27/2020 11:57 AM EDT 3 views. No comparison There is a nondisplaced transverse fracture of the midportion of the distal phalanx of the first toe and questionably a tiny nondisplaced lateral corner fracture in the proximal pole of the distal phalanx of the first toe involving no more than 2 or 3 mm of the articular surface even if real. No other bony injury No opaque foreign bodies. 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 Procedure Note Clifton Charles MD - 05/27/2020 3 views. No comparison There is a nondisplaced transverse fracture of the midportion of thedistal phalanx of the first toe and questionably a tiny nondisplacedlateral corner fracture in the proximal pole of the distal phalanx of thefirst toe involving no more than 2 or 3 mm of the articular surface evenif real. No other bony injury No opaque foreign bodies. 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 IMPRESSION: Nondisplaced distal phalangeal fracture or fractures POS [id number] Guido MANZO IMG XR LOWER EXTREMITY Hailey l Result documented in this encounter Visit Diagnoses Not on filedocumented in this encounter Additional Health Concerns Infection Onset Date Last Indicated Resolved Time CoV-Risk 10/10/2020 10/10/2020 10/20/2020 1:24 AM EST CoV-Risk 11/04/2020 11/05/2020 11/14/2020 1:24 AM EDT CoV-Risk 03/13/2021 03/13/2021 03/23/2021 1:23 AM EDT CoV-Risk 05/27/2021 05/27/2021 06/06/2021 1:23 AM EDT CoV-Risk 06/16/2021 06/16/2021 06/26/2021 1:22 AM EDT CoV-Risk 07/04/2022 07/04/2022 07/15/2022 4:44 AM EST CoV-Risk 10/12/2022 10/12/2022 10/23/2022 1:22 AM EST CoV-Risk 10/25/2022 10/25/2022 11/05/2022 1:22 AM EDT CoV-Risk 11/24/2022 11/24/2022 12/05/2022 1:22 AM EDT documented as of this encounter Care Teams Licensed Tax Consultant Relationship Specialty Start Date End Date Sherice John MD [address] [place] [phone] [email or web address] PCP - General Internal Medicine 03/08/18 documented as of this encounter Additional Source Comments The information contained in this document represents components of the legal health record. It is not the complete legal health record.[facility]
--- OUTSIDE RECORDS SUMMARY | 2020-06-01 09:45 | XMS_ITS | Encounter Summary ---
Author Organization [facility] Address [address] [place] [address] [place] [address] Phone Care Team Providers Care Quarry Plant Crusher Operator Name Role Phone Sherice John MD Primary Care Provider [phone] Encounter Details Date Type Department Care Team (Late st Contact Info) Description 06/01/2020 10:45 AM EDT Hospital Encounter [facility] Ur[facility] Care 12 [place] [address] [place] SHOCK ABSORPTION FLOOR LAYER 12 [place] [address] [email or web address] Social History Tobacco Use Types Packs/Day Years [...] 6:23 PM EDT Tami Jorge RN * [place] Suicide Severity Rating Scale (Screener/Recent Self-Report) Question Answer Date of Assessment Author 1. Wish to be (Past 1 Month) No 02/10/2025 6:23 PM EDT Tami Jorge RN 2. Non-Specific Active Suici wendie Thoughts (Past 1 Month) No 02/10/2025 6:23 PM EDT Goldie Jorge cia, RN 6. Suicidal Behavior (Lifetime) No 6:23 PM EDT Tami Jorge RN documented as of this encounter Plan of Treatment Upcoming Encounters Date Type Department Care Team (Late st Contact Info) Description 09/28/2025 1:20 PM EST Office Visit [facility] [address] [place] [address] Rogelio Torrez DO [address] [place] [address] 11/25/2025 1:15 PM EDT Appointment [facility], Bone Density [address] [address] Rogelio Torrez DO [address] [place] [address] [email or web address] 12/10/2025 10:40 AM EDT Blood Draw [facility] 30 [place] [address] Lulú Vizcaino, BERNABE 30 [place] [address] [email or web address] 12/10/2025 11:40 AM EDT Office Visit [facility] [place] 30 [place] [address] Lulú Vizcaino, [facility] 30 [place] [address] [email or web address] 03/03/2026 8:30 AM EDT Telemedicine [facility] [place] Cardiac Arrhythmia Service 32 [facility], 5th Floor, [address] [place] [address] Angel Domínguez MD 55 [facility] [address] [place] [address] [email or web address] documented as of this encounter Procedures Procedure Name Priority Date/Time Associated Diagnosis Comments XR RIBS 2 VIEWS (RIGHT) Urgent/patient waiting 06/01/2020 10:52 AM EDT Fall from slip, trip, or stumble, initial encounter documented in this encounter Results * XR RIBS 2 VIEWS (RIGHT) (06/01/2020 10:52 AM EDT) Anatomical Region Laterality Modality Chest Radiographic Tami ging 06/01/2020 11:2 3 AM EDT Impressions 06/01/2020 11:24 AM EDT No acute bony abnormality. POS [id number] Narrative 06/01/2020 11:24 AM EDT A total of 3 views reveal no fracture or other significant bony abnormality. No abnormal pleural-based density is apparent. Procedure Note Angel Garcia MD - 06/01/2020 A total of 3 views reveal no fracture or other significant bonyabnormality. No abnormal pleural-based density is apparent. IMPRESSION: No acute bony abnormality. POS [id number] [place] SHOCK ABSORPTION FLOOR LAYER IMG XR CHEST Final Resul t documented in this encounter Visit Diagnoses Not [...] documented as of this encounter Care Teams Quarry Plant Crusher Operator Relationship Specialty Start Date End Date Sherice John MD [address] [place] [address] [email or web address] PCP - General Internal Medicine 03/08/18 documented as of this encounter Additional Source Comments The information contained in this document represents components of the legal health record. It is not the complete legal health record.[facility]
--- OUTSIDE RECORDS SUMMARY | 2021-04-29 13:22 | XMS_ITS | Encounter Summary ---
Author Organization [facility] Address [address] [place] [address] [place] [address] Phone Care Team Providers Care Advisor Advocate Angel Co Founder Name Role Phone Sherice John MD Primary Care Provider [phone] Encounter Details Date Type Department Care Team (Late st Contact Info) Description 04/29/2021 2:22 PM EDT Hospital Encounter [facility] 12 [place] [address] Francisca Baldwin, ANAIS [address] [address] [email or web address] Social History Tobacco Use Types Packs/Day Years [...] 6:23 PM EDT Tami Jorge RN * [place] Suicide Severity Rating Scale (Screener/Recent Self-Report) Question Answer Date of Assessment Author 1. Wish to be (Past 1 Month) No 025 6:23 PM EDT Tami Jorge RN 2. Non-Specific Active Suici wendie Thoughts (Past 1 Month) No 02/10/2025 6:23 PM EDT Marek Jorge RN 6. Suicidal Behavior (Lifetime) No 5 6:23 PM EDT Tami oJrge RN documented as of this encounter Plan of Treatment Upcoming Encounters Date Type Department Care Team (Late st Contact Info) Description 09/28/2025 1:20 PM EST Office Visit [facility] [address] [place] [address] [place] [address] Rogelio Torrez DO [address] [place] [address] 11/25/2025 1:15 PM EDT Appointment [facility], Bone Density [facility] 30 [place] [address] Rogelio Torrez DO [address] [place] [address] [email or web address] 12/10/2025 10:40 AM EDT Blood Draw [facility] 30 [place] [address] Lulú Vizcaino, BERNABE 30 [place] [address] [email or web address] 12/10/2025 11:40 AM EDT Office Visit [facility] Miguel Angel 30 [place] [address] Lulú Vizcaino, [address] [address] [email or web address] 03/03/2026 8:30 AM EDT Telemedicine [facility]ia Service 32 [facility], 5th Floor, [address] [place] [address] Angel Domínguez MD 55 [facility] [address] [place] [address] [email or web address] documented as of this encounter Procedures Procedure Name Priority Date/Time Associated Diagnosis Comments XR WRIST 3 OR MORE VIEWS (RIGHT) Urgent/patient waiting 04/29/2021 2:29 PM EDT Contusion of right wrist, initial encounter documented in this encounter Results * XR WRIST 3 OR MORE VIEWS (RIGHT) (04/29/2021 2:29 PM EDT) Anatomical Region Laterality Modality Wrist Right Computed Radiogr aphy 04/29/2021 2:53 PM EDT Impressions 04/29/2021 2:57 PM EDT No fracture or dislocation. ATTESTATION: I, Dorinda Leonard as teaching physician, have reviewed the images for this case and if necessary edited the report originally created by Truman Recio. Narrative 04/29/2021 2:57 PM EDT XR WRIST 3 OR MORE VIEWS (RIGHT) INDICATION: Anterior wrist pain and lump after blunt trauma. COMPARISON: None. FINDINGS: No fracture. The scaphoid bone appears intact. Normal alignment. Degenerative changes of the STT and first CMC joints. No soft tissue swelling. Procedure Note Dorinda Leonard MD - 04/29/2021 XR WRIST 3 OR MORE VIEWS (RIGHT) INDICATION: Anterior wrist pain and lump after blunt trauma. COMPARISON: None. FINDINGS: No fracture. The scaphoid bone appears intact. Normal alignment.Degenerative changes of the STT and first CMC joints. No soft tissueswelling. IMPRESSION: No fracture or dislocation. ATTESTATION: IDorinda as teaching physician, have reviewed theimages for this case and if necessary edited the report originally createdby Truman Recio. Francisca MANZO IMG XR UPPER EXTREMITY Final Result documented in this encounter Visit Diagnoses Not on filedocumented in this encounter Additional Health Concerns Infection Onset Date Last Indicated Resolved Time CoV-Risk 05/27/2021 05/27/2021 06/06/2021 1:23 AM EDT CoV-Risk 06/16/2021 06/16/2021 06/26/2021 1:22 AM EDT CoV-Risk 07/04/2022 07/04/2022 07/15/2022 4:44 AM EST CoV-Risk 10/12/2022 10/12/2022 10/23/2022 1:22 AM EST CoV-Risk 10/25/2022 10/25/2022 11/05/2022 1:22 AM EDT CoV-Risk 11/24/2022 11/24/2022 12/05/2022 1:22 AM EDT documented as of this encounter Care Teams Advisor Advocate Angel Co Founder Relationship Specialty Start Date End Date Sherice John MD [address] [place] [phone] (work) [email or web address] PCP - General Internal Medicine 03/08/18 documented as of this encounter Additional Source Comments The information contained in this document represents components of the legal health record. It is not the complete legal health record.[facility]
--- OUTSIDE RECORDS SUMMARY | 2021-12-21 11:40 | XMS_ITS | Encounter Summary ---
Author Organization [facility] Address [address] [place] [address] [place] [address] Phone Care Team Providers Care Indian Trader Name Role Phone Sherice John MD Primary Care Provider [phone] Encounter Details Date Type Department Care Team (Late st Contact Info) Description 12/21/2021 12:40 PM EDT Hospital Encounter [facility] Care [address] [place] [address] [place] NETWORKING TECHNICIAN 12 [place] [address] [email or web address] Social History Tobacco Use Types Packs/Day [...] 6:23 PM EDT Tami Jorge RN * [place] Suicide Severity Rating Scale (Screener/Recent Self-Report) Question [...] 1:20 PM EST Office Visit [facility] [address] [place] [address] Rogelio Torrez DO [address] [place] [address] [email or web address] 11/25/2025 1:15 PM EDT Appointment [facility], Bone Density [address] [address] Rogelio Torrez DO [address] [place] [address] [email or web address] 12/10/2025 10:40 AM EDT Blood Draw [facility] 30 [place] [address] Lulú Vizcaino MBBS 30 [place] [address] [email or web address] 12/10/2025 11:40 AM EDT Office Visit [facility] [place] 30 [place] [address] Lulú Vizcaino MB 30 [place] [address] [email or web address] 03/03/2026 8:30 AM EDT Telemedicine [facility] [place] [place] Cardiac Arrhythmia Service 32 [facility], 5th Floor, [address] [place] [address] Angel Domínguez MD 55 [facility] [address] [place] [address] [email or web address] documented as of this encounter Procedures Procedure Name Priority Date/Time Associated Diagnosis Comments XR FOOT 3 OR MORE VIEWS (LEFT) Urgent/patient waiting 12/21/2021 12:49 PM EDT Acute pain of left foot documented in this encounter Results * XR FOOT 3 OR MORE VIEWS (LEFT) (12/21/2021 12:49 PM EDT) Anatomical Region Laterality Modality Foot Left Computed Radiogr aphy 12/21/2021 12:5 9 PM EDT Impressions 12/21/2021 1:05 PM EDT No acute osseous abnormality. Narrative 12/21/2021 1:05 PM EDT XR FOOT 3 OR MORE VIEWS (LEFT) COMPARISON: Left foot radiographs 11/22/2021. FINDINGS: No acute fracture or dislocation. Degenerative changes of the great toe metatarsophalangeal joint. Intact soft tissues. Procedure Note Octavia Tate MD - 12/21/2021 XR FOOT 3 OR MORE VIEWS (LEFT) COMPARISON: Left foot radiographs 11/22/2021. FINDINGS: No acute fracture or dislocation. Degenerative changes of the great toemetatarsophalangeal joint. Intact soft tissues. IMPRESSION: No acute osseous abnormality. [place] NETWORKING TECHNICIAN IMG XR LOWER EXTREMITY Hailey l Result documented in this encounter Visit Diagnoses Not on filedocumented in this encounter Additional Health Concerns Infection Onset Date Last Indicated Resolved Time CoV-Risk 07/04/2022 07/04/2022 07/15/2022 4:44 AM EST CoV-Risk 10/12/2022 10/12/2022 10/23/2022 1:22 AM EST CoV-Risk 10/25/2022 10/25/2022 11/05/2022 1:22 AM EDT CoV-Risk 11/24/2022 11/24/2022 12/05/2022 1:22 AM EDT documented as of this encounter Care Teams Indian Trader Relationship Specialty Start Date End Date Sherice John MD [address] [place] [address] [email or web address] PCP - General Internal Medicine 03/08/18 documented as of this encounter Additional Source Comments The information contained in this document represents components of the legal health record. It is not the complete legal health record.[facility]
--- OUTSIDE RECORDS SUMMARY | 2022-10-12 11:54 | XMS_ITS | Encounter Summary ---
Author Organization [facility] Address [address] [place] [address] [place] [address] Phone Care Team Providers Care Correctional Lieutenant Name Role Phone Sherice John MD Primary Care Provider [phone] Encounter Details Date Type Department Care Team (Late st Contact Info) Description 10/12/2022 11:54 AM EST Hospital Encounter [facility] 12 [place] [address] Imelda Anders FNP 12 [place] [address] [email or web address] Social History Tobacco Use Types Packs/Day Years [...] 6:23 PM EDT Tami Jorge RN * [place] Suicide Severity Rating Scale (Screener/Recent Self-Report) Question [...] 1:20 PM EST Office Visit [facility] [address] [place] [address] [place] [address] Rogelio Torrez DO [address] [place] [address] 11/25/2025 1:15 PM EDT Appointment [facility], Bone [address] [address] Rogelio Torrez DO [address] [place] [address] [email or web address] 12/10/2025 10:40 AM EDT Blood Draw [facility] 30 [place] [address] Lulú Vizcaino, JORGE 30 [place] [address] [email or web address] 12/10/2025 11:40 AM EDT Office Visit [facility] [place] 30 [place] [address] Lulú Vizcaino, BERNABE 30 [place] [address] [email or web address] 03/03/2026 8:30 AM EDT Telemedicine [facility] Cardiac Arrhythmia Service 32 [facility], 5th Floor, [address] [place] [address] Angel Domínguez MD 55 [facility] [address] [place] [address] [email or web address] documented as of this encounter Procedures Procedure Name Priority Date/Time Associated Diagnosis Comments XR CHEST PA AND LATERAL 2 VIEWS Urgent/patient waiting 10/12/2022 11:59 AM EST Persistent cough documented in this encounter Results * XR CHEST PA AND LATERAL 2 VIEWS (10/12/2022 11:59 AM EST) Anatomical Region Laterality Modality Chest Computed Radiogr aphy 10/12/2022 12:0 2 PM EST Impressions 10/12/2022 12:05 PM EST Mild left basilar opacities may represent evolving pneumonia or atelectasis. Narrative 10/12/2022 12:05 PM EST XR CHEST PA AND LATERAL 2 VIEWS COMPARISON: XR CHEST PORTABLE FINDINGS: Devices/Tubes/Lines: None. Lungs: New mild left lower lung opacities. No evidence of pulmonary edema. Pleura: No pleural effusion or pneumothorax. Heart/Mediastinum: Similar mildly prominent cardiac silhouette. Bones/Soft Tissues: No acute abnormalities. Procedure Note Asha Flores MD - 10/12/2022 XR CHEST PA AND LATERAL 2 VIEWS COMPARISON: XR CHEST PORTABLE FINDINGS: Devices/Tubes/Lines: None. Lungs: New mild left lower lung opacities. No evidence of pulmonaryedema. Pleura: No pleural effusion or pneumothorax. Heart/Mediastinum: Similar mildly prominent cardiac silhouette. Bones/Soft Tissues: No acute abnormalities. IMPRESSION: Mild left basilar opacities may represent evolving pneumonia oratelectasis. Imelda Anders DIVERSIFIED CROPS I FARMWORKER IMG XR CHEST Final Resul t documented in this encounter Visit Diagnoses Not on filedocumented in this encounter Additional Health Concerns Infection Onset Date Last Indicated Resolved Time CoV-Risk 10/12/2022 10/12/2022 10/23/2022 1:22 AM EST CoV-Risk 10/25/2022 10/25/2022 11/05/2022 1:22 AM EDT CoV-Risk 11/24/2022 11/24/2022 12/05/2022 1:22 AM EDT documented as of this encounter Care Teams Correctional Lieutenant Relationship Specialty Start Date End Date Sherice John MD [address] [place] [address] [email or web address] PCP - General Internal Medicine 03/08/18 documented as of this encounter Additional Source Comments The information contained in this document represents components of the legal health record. It is not the complete legal health record.[facility]
--- OUTSIDE RECORDS SUMMARY | 2022-10-25 13:17 | XMS_ITS | Encounter Summary ---
Author Organization [facility] Address [address] [facility] [address] [place] [address] Phone Care Team Providers Care Assistant Cook Name Role Phone Sherice John MD Primary Care Provider [phone] Encounter Details Date Type Department Care Team (Late st Contact Info) Description 10/25/2022 1:[address] [facility] Hospital Encounter [facility] 12 [place] [address] Chaitanya Hall PA-C [address] [place] [address] [email or web address] Social History Tobacco Use Types [...] 6:23 PM EDT Tami Jorge RN * [place] Suicide Severity Rating Scale (Screener/Recent Self-Report) Question [...] 1:20 PM EST Office Visit [facility] [address] [place] [address] Rogelio Torrez DO [address] [place] [address] 11/25/2025 1:15 PM EDT Appointment [facility], [facility] 30 [place] [address] Rogelio Torrez DO [address] [place] [address] [email or web address] 12/10/2025 10:40 AM EDT Blood Draw [facility] 30 [place] [address] Lulú Vizcaino, BERNABE 30 [place] [address] [email or web address] 12/10/2025 11:40 AM EDT Office Visit [facility] [place] 30 [place] [address] Lulú Vizcaino, BERNABE 30 [place] [address] [email or web address] 03/03/2026 8:[address] [facility] Cardiac Arrhythmia Service 32 [facility], 5th Floor, [address] [place] [address] Angel Domínguez MD 55 [facility] [address] [place] [address] [email or web address] documented as of this encounter Procedures Procedure Name Priority Date/Time Associated Diagnosis Comments XR CHEST PA AND LATERAL 2 VIEWS Routine 10/25/2022 1:22 PM EST Shortness of breath documented in this encounter Results * XR CHEST PA AND LATERAL 2 VIEWS (10/25/2022 1:22 PM EST) Anatomical Region Laterality Modality Chest Computed Radiogr aphy 10/25/2022 1:30 PM EST Impressions 10/25/2022 1:32 PM EST No acute abnormality. Narrative 10/25/2022 1:32 PM EST XR CHEST PA AND LATERAL 2 VIEWS COMPARISON: Two-view chest radiograph from 10/12/2022 FINDINGS: Devices/Tubes/Lines: None. Lungs: Normal. The lungs are clear. No focal consolidation or pulmonary edema. Pleura: Normal. No pleural effusion or pneumothorax. Heart/Mediastinum: Normal heart and mediastinum. Bones/Soft Tissues: Normal. No significant skeletal abnormality. Procedure Note Silvana Puri MD - 10/25/2022 XR CHEST PA AND LATERAL 2 VIEWS COMPARISON: Two-view chest radiograph from 10/12/2022 FINDINGS: Devices/Tubes/Lines: None. Lungs: Normal. The lungs are clear. No focal consolidation or pulmonaryedema. Pleura: Normal. No pleural effusion or pneumothorax. Heart/Mediastinum: Normal heart and mediastinum. Bones/Soft Tissues: Normal. No significant skeletal abnormality. IMPRESSION: No acute abnormality. Chaitanya Hall PA-C IMG XR CHEST Final Result documented in this encounter Visit Diagnoses Not on filedocumented in this encounter Additional Health Concerns Infection Onset Date Last Indicated Resolved Time CoV-Risk 10/25/2022 10/25/2022 11/05/2022 1:22 AM EDT CoV-Risk 11/24/2022 11/24/2022 12/05/2022 1:22 AM EDT documented as of this encounter Care Teams Assistant Cook Relationship Specialty Start Date End Date Sherice John MD [address] [place] [address] [email or web address] PCP - General Internal Medicine 03/08/18 documented as of this encounter Additional Source Comments The information contained in this document represents components of the legal health record. It is not the complete legal health record.[facility]
[2025-06-22 11:15] VITALS: BP 138/76; PULSE 69; O2SAT 94; BMI 28.8
--- NOTE | 2025-06-22 11:15 | MHC.OFFVIS ---
Vital Signs 06/22/25 11:15 Height 5 ft 4 in Weight 167 lb 8.821 oz BMI 28.8 BP 138/76 Blood Pressure Location Lt brachial Position Sitting Pulse 69 Pulse Source Pulse Oximeter Pulse Oximetry (%) 94 Oxygen Delivery Method Room Air Intake Visit Reasons: Shortness of breath Broadcast Operations Engineer Required: No Accompanied by: Self / Same As Patient Allergies hydromorphone (From Dilaudid) Allergy (Severe, Verified 06/22/25 11:18) Confusion Sulfa Drugs Allergy (Severe, Uncoded 06/15/25 09:27) Rash HPI Comments Details: The patient is a 75 year woman who has been complaining of worsening shortness of breath for the last several years. Apparently back in 2018 the patient has significant shortness of breath and was evaluated in the hospital. She did have a full cardiac evaluation in addition to a CTA. No evidence of any blood clots at that time. The patient did have an echocardiogram demonstrating pulmonary hypertension. Because her ongoing symptoms in the pulmonary hypertension she was referred to [place] for further care. There she had a level 3 cardiopulmonary exercise tolerance test. Her pulmonary pressures increased minimally without any significant evidence of significant pulmonary hypertension. She was not placed on any medicines. She also had a full pulmonary function study done at that time. It appeared that a pulmonary capacity was within normal limits. Only had a mild diffusion impairment. The patient continues to have ongoing symptoms without a clear explanation. She was also started on CPAP in the meantime. Still no improvement. Then in October she was evaluated in [place] which she had a CTA demonstrating evidence of pulmonary emboli. The patient started on Eliquis. Echocardiogram afterwards demonstrated a moderate amount of pulmonary hypertension. She does have a porcelain mixer in that area. She is tolerating the anticoagulation well. She is still short of breath. During the visit we did go for 6 minutes walk test. We did go up an incline. The patient was visibly dyspneic and also she became hypoxic down to 88%. Not only that when she was hypoxic it was noted that she had more ectopy in some degree of bigeminy. Likely induced by the level of hypoxia. I we did try her on oxygen and 2 L did improve her oxygenation and her energy with activity. So therefore will go ahead and start the patient on oxygen as we try to continue to monitor and evaluate her for her ongoing dyspnea symptoms. In part we have to assess the possibility of underlying chronic thromboembolic disease. We will do further testing for this condition. 03/20/2023 the patient is here for a pulmonary follow-up visit. she continues to have significant dyspnea on exertion even with minimal activity. The oxygen supplementation has been helpful for her per in the meantime regarding her history of blood clots she is using her anticoagulation with good effect and she has good adherence. She did undergo a V/Q scan ruling out the possibility of chronic thromboembolic disease. She also has been using her CPAP regularly. Her machine had been adjusted and the overnight oximetry had improved. Will go ahead and repeat that again just to make sure. In addition to this we did review her cardiopulmonary exercise stop all rinse test which was a level 3 study done in [place]. 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 She also had excessive systemic hypertension during the study although the wedge pressure did not demonstrate any evidence of any left-sided heart failure that may have resulted in the pulmonary hypertension. Today we had her undergo a 6 minutes walk test and she still desaturating some although better than the last time that she was here. Still requires the oxygen specially to exercise. Patient did undergo pulmonary function studies and we personally reviewed. No significant obstructive nor restrictive disease although she has a low normal total lung capacity. The diffuse capacity is mildly decreased. 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 She did have an echocardiogram back in January which also demonstrated that her pulmonary pressures were elevated even at rest though. at this point the patient has pulmonary attention that appears to be symptomatic and would benefit from vasodilator therapy. 04/12/2023 the patient is here for pulmonary follow-up visit. Continues to have dyspnea on exertion moderate severity. The oxygen continues to be helpful. She continues on the Lasix 20 mg daily. She is not weighing herself daily at this time. We were trying to get her on sildenafil although her insurance denied it. We did send a prior approval for in order to get her on sildenafil for the pulmonary hypertension but they still denied it. We did review her level 3 CPET that she had about 4 years ago demonstrating exercise-induced pulmonary hypertension. Ultimately after that she ended up with the thromboembolic disease back in October 2022. We did perform a V/Q scan that was reassuring she will have another CTA ordered by her porcelain mixer to make sure that there is no further evidence of thrombolic disease. The patient had an echocardiogram demonstrating elevated pulmonary pressures in addition to that had a brain natretic peptide was significantly elevated at 1900. Therefore, the appears to be some degree of ardiac strain. I do believe the patient will benefit from vaso-dilatory therapy for her pulmonary hypertension. At this point she will require a referral back to [place] to further address the degree of pulmonary hypertension with a repeat evaluation. Currently she is within the [facility] system therefore will go ahead and refer her to [facility]. In the meantime she will increase her Lasix to 40 mg daily for about 5 days and then she will weigh herself daily and monitor for any weight gain and she will take additional Lasix if her weight increases to a certain degree. I did give her instructions. She continues on the Eliquis and she is adherent to the therapy. She will follow-up with the porcelain mixer regarding the thromboembolic disease and hyper hypercoagulable state. At this point it is considered to be unprovoked. Not clear if this is related to COVID or not. At this point she will follow up with porcelain mixer for further evaluation. 06/01/2023 the patient is here for a pulmonary follow-up visit. She is feeling more drowsy during the daytime. She says that she tends to fall asleep during the day. She has decreased energy. She has been also noticing she is been needing additional oxygen. She is wondering if that is related. Explained to her that is unlikely to be her oxygen. Although will go ahead and check a venous gas to make sure that his CO2 is okay. the patient did follow-up with cardiology. Her brain natriuretic peptide was elevated. She is already on Lasix. These recommended talking to pulmonary. The patient understands that this is likely due to significant straining to the right ventricle. She was given a referral to [facility] but there is a long delay. We will call them again to see if they can move up her appointment. In the meantime we will increase her diuretics if her brain atretic peptide continues be elevated and also if she is continues to be symptomatic. she continues use the oxygen with activity. We did go for brief walking oximetry and she actually did fairly well and there was reassuring for her. I encouraged her to stay active. Also did review her CT scan of the chest PE protocol demonstrating interval resolution her blood clots and otherwise stable findings. 07/05/2023 the patient is here for a pulmonary follow-up visit. The patient overall is doing about the same. She is using her portable oxygen concentrator. The therapy has been effective providing her with better portability outside of the home. She continues with her diuresis. The lower extremity edema is overall better. The patient did have the visit with [facility] pulmonary hypertension clinic. They did go ahead and order a level 3 cardiopulmonary exercise study. Although it is not till September. The patient continues to be symptomatic therefore, I am going to speak to her cardiology team to see if we can at least do a right heart catheterization locally in to see if we can get all the answers that we need. If the right heart catheterization is not helpful then she can proceed have her level 3 CPAP. The patient continues to be more symptomatic so I do believe that the her CT hopefully can give us enough information to start her on vasodilators carole therapy if does what she needs. 11/26/2023 the patient is here for a pulmonary follow-up visit. She continues to struggle with her breathing. Although it has improved to some degree. She did follow-up in [place]. She was placed on diltiazem for significant PVCs. It appears to be helping. She also has been using her oxygen with activity, but less. She did undergo a level 3 CPET in [place]. Demonstrated that she does have pulmonary vascular disease with exercise suggesting exercise-induced pulmonary hypertension. The patient did have a repeat 6 minutes walk test today with me. We did go up 4 flights of stairs. The patient did desaturate down to 89% heart rate went up to about 130 beats per minute. Her hypoxia worsened after rested. She did take around 2-3 minutes to recover. Therefore, will continue providing her with the oxygen with activity specially as we psych where his to start pulmonary rehabilitation. The patient was prescribed sildenafil based on her exercise-induced pulmonary hypertension and I did speak to her specialist in [place] and they did agree with the intervention. Will hoping to start on sildenafil soon with the help improvement her vascular resistance with exercise and improve her hypoxia and tachycardia. I did answer all her questions. We did talk about her inhalers. She is going to try to simplify them at this time specially since she has not seen a significant improvement on the improved. 12/11/2023 the patient is here for a sick visit. The patient ultimately started on sildenafil. She is started slow in a low dose half a tablet initially and then increase to full tablet 3 times a day. She was started to feel ?funny?. She started noticing some leg swelling. Although she did make anything of it. And ultimately she started developing worsening shortness of breath in noticed that she was more hypoxic requiring oxygen more regularly. At that point she did call us and also called [facility]. They stopped the sildenafil the patient has started taking her additional diuretic. She still feels like she has not her baseline she is still using the oxygen more regularly. Therefore we had a firemen. The patient did have a chest x-ray which I personally reviewed without any overt heart failure or any pulmonary edema which is reassuring. Her blood work is also reassuring with normal cardiac enzymes and a normal brain atretic peptide where it was elevated before. In addition to that we did go for brief walking oximetry the patient did desaturate down to 88% on room air. Although she maintain her pulse ox around 91% for most of the ambulation. She did have a portable oxygen concentrator and she had been wearing it. At this point we did review her previous echocardiogram from January of 2023 demonstrating normal EF although it did mentioned about the [id number] mitral regurgitation. From wondering if this could have resulted in worsening heart failure from full the mitral valve. In addition to that we talked about diastolic dysfunction and also veno-occlusive disease that is less likely. For now though she will stop the vasodilators therapy will continue with diuretic therapy as she is responding well. Will go ahead and request a repeat echocardiogram and she should follow-up with cardiology. 01/10/2024 the patient is here for a pulmonary follow-up visit. Overall she is feeling better. She did have a follow-up with her electrophysiology physician who will start her on antiarrhythmic agent for persistent abnormal findings on her Holter monitor. I do not have those results. In addition to that she did have an echocardiogram demonstrating some degree of diastolic dysfunction and also mitral valve regurgitation. The patient is wondering why she has difficulty with the medication. We and talked about the possibility of veno-occlusive disease and also talked about the possibility of the heart not been able to tolerate the increase in the blood return after the vasodilators was provided. The patient does have a follow-up with [facility] pulmonary to see if they have any further recommendations regarding the exercise-induced pulmonary hypertension. She continues on the Eliquis for history of pulmonary emboli although her V/Q scan was very reassuring that she does not have any residual clots. Her volume status is better. She continues on diuretics. She is having some issues with leg swelling and pain. Will go ahead and request blood work. The patient follow-up in 4 months. If he has any worsening symptoms she will call for 04/24/2024 the patient is here for a pulmonary follow-up visit. The patient has been having some difficulties with her sleep. She is having some insomnia. She is using the trazodone 100 mg at nighttime. In addition to that sometimes she uses a small dose of Ativan. Although she can only get about 3-4 hours asleep. The patient also has gabapentin. She is going to start taking the gabapentin more regularly. She uses her more her pain issues. The patient has a CPAP. She is having some difficulties tolerating the CPAP because of her insomnia. We did download her data. Seems like her AHI is less than 1. her pressure settings are adequate. Her average pressure is 11 cm of water. Will go ahead and decrease her maximum pressure from 16-13 to minimize significant elevations in the pressures. From a respiratory status she is doing better after completing pulmonary rehabilitation. She also continues with diuresis. She does continue to have the oxygen. She did have COVID and she was using the oxygen more regularly then. I am hopeful that when she comes back in 2-3 months we can do 6 minute walk test and see if we can hopefully discontinue the oxygen for her. She continues with her diuretics. Will plan to follow-up 2 months. If any issues arise prior to that she will call for an earlier assessment. 08/06/2024 the patient is here for a pulmonary follow-up visit. Overall the patient feels like she is getting worse. Feels like she is having more shortness of breath. She is having to use the oxygen more. In the meantime she has been using her CPAP. The CPAP therapy has been affecting beneficial and she does use it for more than 4 hours a night. We had done an overnight oximetry before she did not need oxygen but will go ahead and repeated again to make sure specially with the issue with the pulmonary hypertension. At this point it appears that her pulmonary hypertension is more related to her stiffen left ventricle and diastolic dysfunction specially since she could not tolerate the vasodilators therapy therapy resulting in flash edema. Veno-occlusive diseases less likely specially with her very severe dilated left atrium. The patient is currently on diuretics. She was placed on torsemide for moment but she develops significant reactions to that. She is going to be following up with the congestive Heart failure Clinic at [facility] which is believe is very good option for her. I did ask her to discuss Jardiance with the team there. In the meantime she is going to continue with the oxygen with activity. She was going to have the overnight oximetry test again. The patient will undergo blood work a couple weeks and we can check her electrolytes make sure that she is tolerating the diuresis. She is also having some chest congestion some sinus congestion. Will go ahead and start her on nasal prior and also started on Singulair she had before she seemed to tolerate okay. 11/25/2024 the patient is here for pulmonary follow-up visit. The patient continues to have dyspnea on exertion. Moderate severity. Substance now she is getting shortness of breath at rest. Still continues to need oxygen primarily with activity but she has also been noticing that her oxygen drop to 88% at rest. She did follow-up with the heart failure clinic at [facility]. She is being monitored very closely. She was placed on Jardiance that she feels is working better than the Lasix. She also underwent a MRI of the heart which ruled out any intrinsic or infiltrative cardiac disease. She does have Spiriva inhaler although she stopped using it because she felt like she was taken to any medications. I did request that she can restarted been maybe as every other day medication. Her last echocardiogram was back in May demonstrating that dilated left atrium. And also the MRI also picked up the severely dilated left atrium. On my cardiac exam today the patient did have 3/6 systolic murmur best heard at the right sternal border. Seem to radiate to the clavicle. The patient had does have a history of aortic valve disease. 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 I do believe that this may be in part affecting her cardiovascular function. She does continue with CPAP. The CPAP therapy affecting beneficial and she does use it for more than 4 hours a night. Based on the overnight oximetry the patient does benefit from oxygen with CPAP which she is using 2 L per minute with CPAP. She is having issue with the back pain. She was coughing all the sudden started developing severe back pain. She had x-rays done by primary care a [facility] which demonstrated a compression fracture. Seems like he was older although she may have a new compression fracture. She will also need to follow-up with pain management to see if we need vertebroplasty secondary to significant pain. She is also being looked at for hip replacement. At this point she should hold off until she is better before having elective surgery. 02/24/2025 the patient is here for pulmonary follow-up visit. Since we last spoke she started developing pleuritic discomfort of the chest substernal in location moderate to severe. This happened after having an incident with her cat where she had to quickly move the CAT and therefore by doing so straining herself or hurting herself causing significant pain. She was evaluated in an urgent care and she did have an x-ray. Apparently this was done a [facility]. We do not have those films. Although she was kept to make sure she did have any cardiac abnormalities more than anything else. She was discharged when she ruled out for any myocardial injury. This happened about 3 weeks so she still having significant pain although little bit better. She still has a hard time taking a deep breath in. She is on Eliquis because she has had a history of blood clots back in 2022 but those resolved therefore responding well to the Eliquis and she has not stopped the Eliquis at any point to suggest recurrent clots. Therefore will have her get a rib series and also treat her pain and her inflammation to see if they can provide some relief. If the patient continues to be uncomfortable and it if the x-rays on helpful then will go ahead and request a CT scan of the chest. In the meantime I did provide her an incentive spirometer for her to work on deep breathing exercises. She should use the oxygen to keep her pulse ox above 90%. And she is also using the CPAP at nighttime. The CPAP therapy continues to be affecting beneficial. And she does use it for more than 4 hours a night. She did have an echocardiogram scheduled but right now she will have to hold off because he has too much tenderness in costochondral area. 04/10/2025 the patient is here for a pulmonary follow-up visit. She had 1 event where she had some symptoms of shortness of breath in addition to left-sided chest pain and was noted to be hypoxic. Her symptoms were moderate to severe. She was dizzy and did not feel good. She did call our office and she was recommended to go to the ER. She should call the ambulance but she actually drove because she was starting to feel little bit better. She waited in the ER about 6 hours. She did have a chest x-ray which I personally reviewed demonstrating no acute disease and she also had blood work which is reassuring except for slightly elevated brain atretic peptide. The patient's symptoms felt like when she had a blood clot. Currently she is on Eliquis but does not been perfect. Therefore based on the fact that she developed significant hypoxia chest pain in the symptoms were similar to when she had a blood clot it will be very reasonable to order a CTA this time to rule out PE. Indeed the patient has been adherent to the Eliquis but the Eliquis is not 100% preventing blood clots. The patient also was having issues with cardiac arrhythmias in his have any additional ectopy. She is due for an echo and she needs to call to schedule. The patient is look into transfer her care over to [place] so therefore I will refer her also to Cardiology in order to be assessed from a cardiology standpoint as well. She may need a Holter. She does have a time study engineer from [place] that had been following her because of the irregular heart rhythm that was noted on previous testing. The patient also his having back issues. The x-ray demonstrated a new compression fracture. The CAT scan will help also delineate if any additional fractures that will need further interventions. She will continue to use the oxygen for now she is on the respiratory medications as prescribed. Will plan to follow-up in 6 weeks. If she has not issues prior to this she will call for an earlier assessment. 06/22/2025 the patient is here for pulmonary follow-up visit. The patient overall has been doing okay. She did have the issue with the chest pain she we did send her for CTA that demonstrated a fracture of the sternum. The patient did follow-up with primary care and subsequently did follow-up with thoracic surgery and was recommended just to treat it conservatively specially if he was not bothering her too much. In the meantime she suffers from osteopenia. He is currently working with endocrinology. She may need additional therapy specially since she has had multiple compression fractures and multiple fractures and general even as a child. So she will continue discussing that further with her retail branch manager. From a respiratory status he continues use the oxygen with good effect. Sometimes she notices that she gets short of breath and that is not true later when she sits down that her pulse ox drops after being involved in an activity. I explained to her that this is sluggish circulation and perfusion. Indeed she did have an echocardiogram demonstrating the diastolic dysfunction some minimal aortic valve stenosis and some slight asymmetry of hypertrophy of the septum. She will follow-up with Cardiology. Right now she is doing well from a respiratory status she will continue with the current therapy. She is not using any inhalers except for rescue inhaler. She will follow-up in 4-6 months if she has not issues prior to that she can always call for an earlier assessment or recommendations. [facility] Medical History (Updated 06/16/25 @ 14:03 by Ciro Chan MD) Chest pain Premature ventricular contraction Bradycardia SOB (shortness of breath) Palpitations Dilated cardiomyopathy Mitral regurgitation Aortic atherosclerosis Vitamin D deficiency CAD (coronary artery disease) Restless leg syndrome Migraine Nephrolithiasis Cataract Depression Hiatal hernia GERD (gastroesophageal reflux disease) Oxygen dependent On anticoagulant therapy Elevated cholesterol Atrial fibrillation HTN (hypertension) On home oxygen therapy Systolic murmur Insomnia CHF (congestive heart failure) JACKIE (obstructive sleep apnea) Asthma Pulmonary hypertension Pulmonary emboli Dyspnea Surgical History Hx of cataract extraction History of esophagogastroduodenoscopy (EGD) H/O colonoscopy Hx of lithotripsy History of total bilateral knee replacement (TKR) Social History Are you a primary director of career services to a significant other at home: No Do you presently have visiting nurse or other home services: No Patient Tobacco Use Status: Never used Tobacco Review of Systems Const Denies fever(s) Eyes Reports no additional complaints ENT Denies nasal congestion and Reports neck pain Card Reports chest pain, Reports chest pain with activity and Reports dyspnea on exertion Resp Reports pain on inspiration, Reports pain with cough, Reports dyspnea on exertion and Denies wheezing GI Reports no additional complaints Musc Reports as per HPI, Reports back pain, Reports loss of height, Reports neck pain, Reports radiating pain into limb and Reports tingling Skin/Breast Denies rash Neuro Reports no additional complaints and Reports tingling Endo Reports no additional complaints Cameron/Lymph Denies easy bleeding, Denies easy bruising and Denies lymphadenopathy Aller/Immun Denies wheezing Physical Exam Vital Signs: Last Vital Signs Pulse 69 06/22/25 11:15 BP 138/76 06/22/25 11:15 Pulse Ox 94 06/22/25 11:15 Oxygen Delivery Method Room Air 06/22/25 11:15 BMI result Body Mass Index 28.8 Const General: comfortable and no acute distress Orientation/consciousness: patient oriented x3 HEENT Head: Yes normocephalic Mouth: Normal oral and palatal mucosa present Eyes EOM: EOMs intact bilaterally Neck Neck: Yes supple Chest Chest palpation & inspection: no tenderness Resp Effort & Inspection: normal respiratory effort Auscultation: diminished lung sounds Cardio Jugular venous distension: no JVD Rate: regular rate Rhythm: regular rhythm Heart sounds: S1 normal heart sound present, S2 normal heart sound present and Murmur heart sound present systolic early, III/, with radiation and at the right sternal border GI Palpation (GI): Soft to palpation Auscultation: normal bowel sounds General: Yes no CVA tenderness Back/Spine/Pelvis Back: no CVA tenderness Skin General skin exam: no rashes or lesions noted Neuro General: patient oriented x3 and moves all extremities Extrem General: Yes no pedal edema Assessment & Plan Assessment & Plan (1) Pulmonary hypertension: Comment: Likely WHO 2>3, no evidence of CTED; Did not tolerate vasodilator therapy due to cardiogenic pulmonary edema Code(s): I27.20 - Pulmonary hypertension, unspecified Category: Medical (2) CHF (congestive heart failure): Comment: HFPEF Code(s): I50.9 - Heart failure, unspecified Category: Medical Qualifiers: Heart failure chronicity: chronic Heart failure type: diastolic Qualified Code(s): I50.32 - Chronic diastolic (congestive) heart failure (3) Dyspnea: Code(s): R06.00 - Dyspnea, unspecified Category: Medical Qualifiers: Dyspnea type: dyspnea on exertion Qualified Code(s): R06.09 - Other forms of dyspnea (4) Pulmonary emboli: Comment: No evidence of CTED Code(s): I26.99 - Other pulmonary embolism without acute cor pulmonale Category: Medical Qualifiers: Acute cor pulmonale presence: unspecified Chronicity: chronic Pulmonary embolism type: other Qualified Code(s): I27.82 - Chronic pulmonary embolism (5) Asthma: Code(s): J45.909 - Unspecified asthma, uncomplicated Category: Medical Qualifiers: Asthma complication type: uncomplicated Asthma persistence: persistent Asthma severity: moderate Qualified Code(s): J45.40 - Moderate persistent asthma, uncomplicated (6) JACKIE (obstructive sleep apnea): Comment: uses cpap Code(s): G47.33 - Obstructive sleep apnea (adult) (pediatric) Category: Medical (7) Insomnia: Code(s): G47.00 - Insomnia, unspecified Category: Medical Qualifiers: Insomnia type: primary Qualified Code(s): F51.01 - Primary insomnia (8) Back pain: Comment: New Compression fracture Code(s): M54.9 - Dorsalgia, unspecified Category: Medical Qualifiers: Back pain laterality: unspecified Back pain location: low back pain Chronicity: acute Sciatica presence: without sciatica Qualified Code(s): M54.50 - Low back pain, unspecified (9) Chest pain: Code(s): R07.9 - Chest pain, unspecified Category: Medical Qualifiers: Chest pain type: chest pain on breathing Qualified Code(s): R07.1 - Chest pain on breathing Plan Oxygen supplementation 2L/pulse with POC. Continue Eliquis BID daily weights continue CPAP therapy, adjusted 8-13 with 2L oxygen continue respiratory therapy with spiriva, ok every other day HARPAL as needed Lidoderm patch Trazodone 150mg QHS Lyrica F/U 4-6 months Coding Level of Care Code Est Pt Level 5 (80057) Complex EM visit Add On G2211 Diagnoses Pulmonary hypertension I27.20 Chronic diastolic congestive heart failure I50.32 Heart failure chronicity: chronic Heart failure type: diastolic Dyspnea on exertion R06.09 Dyspnea type: dyspnea on exertion Other chronic pulmonary embolism, unspecified whether acute cor pulmonale present I27.82 Acute cor pulmonale presence: unspecified Chronicity: chronic Pulmonary embolism type: other Moderate persistent asthma without complication J45.40 Asthma complication type: uncomplicated Asthma persistence: persistent Asthma severity: moderate JACKIE (obstructive sleep apnea) G47.33 Primary insomnia F51.01 Insomnia type: primary Acute low back pain without sciatica, unspecified back pain laterality M54.50 Back pain laterality: unspecified Back pain location: low back pain Chronicity: acute Sciatica presence: without sciatica Chest pain on breathing R07.1 Chest pain type: chest pain on breathing Time Spent (min) 45
--- OUTSIDE RECORDS SUMMARY | 2025-06-22 14:10 | XMS_ITS | Encounter Summary ---
Author Organization [facility] Address [address] [place] [address] Phone Care Team Providers Care Chemical Tank Worker Name Role Phone Sherice John MD Primary Care Provider Deya Sotelo MD Unavailable Joni Deleon MD Unavailable Mikal Jones MD Unavailable [phone] [facility] Unavailable [phone] Encounter Details Date Type Department Care Team (Late st Contact Info) Description 11/04/2020 Transcribe Orders Virtual Department 30 [place] [address] Mary Hamilton MD [address] [place] [address] Cough (Primary Dx) Social History Tobacco Use [...] 1:20 PM EST Office Visit [facility] 22 [place] [address] Rogelio Torrez [address] [address] [email or web address] 11/25/2025 1:15 PM EDT Appointment [facility], Bone [address] [address] Rogelio Torrez [address] [address] [email or web address] 12/10/2025 10:40 AM EDT Blood Draw [facility] [address] [place] [address] Lulú Vizcaino MBBS [address] [place] [address] [email or web address] 12/10/2025 11:40 AM EDT Office Visit [facility] at [address] [address] Lulú Vizcaino MBBS [address] [place] [address] [email or web address] 03/03/2026 8:30 AM EDT Telemedicine [facility] Cardiac Arrhythmia Service 32 [facility], 5th Floor, [address] [place] [address] Angel Domínguez MD 55 [facility] [address] [place] [address] [email or web address] documented as of this encounter Results * COVID-19 PCR Order (11/05/2020 9:15 AM EDT) COVID Testing Status Specimen received in analyzing lab. Results should be available within 24 to 48 hrs. [facility] Symptomatic? YES [facility] 11/05/2020 9:15 AM EDT 11/05/2020 12:39 PM EDT Mary Hamilton MD LAB GENERAL ORDERABLES Final Result [facility] [address] [place] [address] [facility] [address] [place] [address] documented in this encounter Visit Diagnoses Diagnosis [...] documented as of this encounter Care Teams Chemical Tank Worker Relationship Specialty Start Date End Date Sherice John MD [address] [place] [address] [email or web address] PCP - General Internal Medicine 03/08/18 Deya Sotelo MD [address] [address] [email or web address] Primary Oncologist Hematology and Oncology 11/27/2211/18 Joni Deleon MD [address] [place] [address] [place] [address] Pulmonary Disease 07/18/23 Mikal Jones MD 2 [facility] [address] [place] [address] Cardiology 07/23/23 Lulú Vizcaino MBBS [address] [place] [address] [address] [place] [address] [email or web address] Primary Oncologist Medical Oncology 11/29/23 documented as of this encounter Additional Source Comments The information contained in this document represents components of the legal health record. It is not the complete legal health record.[facility]
--- OUTSIDE RECORDS SUMMARY | 2025-06-22 14:10 | XMS_ITS | Encounter Summary ---
Author Organization [facility] Address [address] [place] [address] Phone Care Team Providers Care Fabric Finisher Name Role Phone Sherice John MD Primary Care Provider Deya Sotelo MD Unavailable Joni Deleon MD Unavailable Mikal Jones MD Unavailable Lulú Vizcaino Unavailable [phone] Encounter Details Date Type Department Care Team (Late st Contact Info) Description 10/01/2020 Procedure Pass [facility], [address] [address] Social History Tobacco Use Types Packs/Day Years [...] 1:20 PM EST Office Visit [facility] [address] [place] [address] Rogelio Torrez [address] [address] [email or web address] 11/25/2025 1:15 PM EDT Appointment [facility], Bone Density - [address] [address] Rogelio Torrez [address] [address] [email or web address] 12/10/2025 10:40 AM EDT Blood Draw [facility] Phleb [address] [address] Lulú Vizcaino MBBS [address] [place] [address] [email or web address] 12/10/2025 11:40 AM EDT Office [facility] at [address] [address] Lulú Vizcaino MBBS [address] [place] [address] [email or web address] 03/03/2026 8:30 AM EDT Telemedicine [facility] Cardiac Arrhythmia Service 32 [facility], 5th Floor, [address] [place] [address] Angel Domínguez MD 55 [facility] [address] [place] [address] [email or web address] documented as of this encounter [...] documented as of this encounter Care Teams Fabric Finisher Relationship Specialty Start Date End Date Sherice John MD [address] [place] [address] PCP - General Internal Medicine 03/08/18 Deya Sotelo MD [address] [place] [address] [email or web address] Primary Oncologist Hematology and Oncology 11/27/2211/18 Joni Deleon MD [address] [place] [address] [place] [address] Pulmonary Disease 07/18/23 Mikal Jones MD [address] [place] [address] [place] [address] Cardiology 07/23/23 Lulú Vizcaino, JORGE [address] [place] [address] [place] [address] [email or web address] Primary Oncologist Medical Oncology 11/29/23 documented as of this encounter Additional Source Comments The information contained in this document represents components of the legal health record. It is not the complete legal health record.[facility]
--- OUTSIDE RECORDS SUMMARY | 2025-06-22 14:10 | XMS_ITS | Encounter Summary ---
Author Organization [employer] Address 75 [facility] 7t [place] [address] Care Team Providers Care Die Presser Name Role Phone Sherice John MD Primary Care Provider [phone] Encounter Details Date Type Department Care Team (Late st Contact Info) Description 09/23/2024 Orders Only [facility] [address] [place] [address] Sherice John MD 73 [place] [address] Social History Tobacco Use Types Packs/Day Years [...] Care Team (Late st Contact Info) Description 08/04/2025 9:30 AM EST Office Visit [facility] MEDICAL 73 [place] [address] Sherice John MD [address] [place] [address] documented as of this encounter Procedures Procedure Name Priority Date/Time Associated Diagnosis Comments HM COLONOSCOPY Routine 05/06/2024 1:27 PM EDT documented in this encounter Results * Hm Colonoscopy (05/06/2024 1:27 PM EDT) Sherice John MD HEALTH MAINTENANCE Final Result documented in this encounter Visit Diagnoses Not on filedocumented in this encounter Care Teams Die Presser Relationship Specialty Start Date End Date Sherice John MD [address] [place] [address] PCP - General Internal Medicine 08/08/22 documented as of this encounter
--- OUTSIDE RECORDS SUMMARY | 2025-06-22 14:10 | XMS_ITS | Encounter Summary ---
Author Organization [employer] Address 75 [facility] 7t [place] [address] Care Team Providers Care Plate Washer Name Role Phone Sherice John MD Primary Care Provider [phone] Encounter Details Date Type Department Care Team (Late st Contact Info) Description 04/08/[address] [facility] MEDICAL [address] [place] [address] Provider, MD Kiersten Social History Tobacco Use [...] degree (e.g., DEVENDRA, MS, Luis Eduardo, MEd, SPORTS UMPIRE, MARLIN) 02/17/2025 Comments Unknown Sex and Gender [...] Description 08/04/2025 9:30 AM EST Office Visit [facility] MEDICAL [address] [place] [address] Sherice John MD [address] [place] [address] documented as of this encounter Procedures Procedure [...] on filedocumented in this encounter Care Teams Plate Washer Relationship Specialty Start Date End Date Sherice John MD [address] [place] [address] PCP - General Internal Medicine 08/08/22 documented as of this encounter
--- OUTSIDE RECORDS SUMMARY | 2025-06-22 14:10 | XMS_ITS | Encounter Summary ---
Author Organization [facility] Address [address] [place] [address] [address] [place] [address] Phone Care Team Providers Care Head Of History Name Role Phone Sherice John MD Primary Care Provider Deya Sotelo MD Unavailable Joni Deleon MD Unavailable Mikal Jones MD Unavailable Lulú Vizcaino [facility] Unavailable [phone] Encounter Details Date Type Department Care Team (Late st Contact Info) Description 07/25/2023 Procedure Pass [facility] Holter Lab 32 [facility], 5th Floor, [address] [place] [address] Social History Tobacco Use Types Packs/Day Years [...] 1:20 PM EST Office Visit [facility] [address] [place] [address] Rogelio Torrez [address] [address] [email or web address] 11/25/2025 1:15 PM EDT Appointment [facility], [address] [address] Rogelio Torrez [address] [address] [email or web address] 12/10/2025 10:40 AM EDT Blood Draw [facility] Phleb [address] [address] Lulú Vizcaino MBBS [address] [place] [address] [email or web address] 12/10/2025 11:40 AM EDT Office Visit [facility] at [address] [address] Lulú Vizcaino MBBS [address] [place] [address] [email or web address] 03/03/2026 8:30 AM EDT Telemedicine [facility] Cardiac Arrhythmia Service 32 [facility], 5th Floor, [address] [place] [address] Angel Domínguez MD [address] [place], [place] [address] [place] [address] [email or web address] documented as of this encounter Visit Diagnoses Not on filedocumented in this encounter Care Teams Head Of History Relationship Specialty Start Date End Date Sherice John MD [address] [place] [address] [email or web address] PCP - General Internal Medicine 03/08/18 Deya Sotelo MD [address] [address] [email or web address] Primary Oncologist Hematology and Oncology 11/27/2211/18 Joni Deleon MD [address] [place] [address] [place] [address] Pulmonary Disease 07/18/23 Mikal Jones MD 2 [facility] Center [address] [place] [address] Cardiology 07/23/23 Lulú Vizcaino MBBS 2 [facility] Center [address] [place] [address] [email or web address] Primary Oncologist Medical Oncology 11/29/23 documented as of this encounter Additional Source Comments The information contained in this document represents components of the legal health record. It is not the complete legal health record.[facility]
--- OUTSIDE RECORDS SUMMARY | 2025-06-22 14:10 | XMS_ITS | Encounter Summary ---
Author Organization [facility] Address [address] [place] [address] Phone Care Team Providers Care [employer] Founder Name Role Phone Sherice John MD Primary Care Provider Deya Sotelo MD Unavailable Joni Deleon MD Unavailable [phone] Mikal Jones MD Unavailable Lulú Vizcaino [facility] Unavailable [phone] Encounter Details Date Type Department Care Team (Late st Contact Info) Description 10/01/2020 Ancillary Orders Virtual Department 30 [place] [address] Sherice John MD [address] [place] [address] [email or web address] Breast screening Social History Tobacco Use Types [...] 1:20 PM EST Office Visit [facility] [address] [place] [address] Shan Rogelio [address] [address] [email or web address] 11/25/2025 1:15 PM EDT Appointment [facility], Bone Density - [address] [address] Rogelio Torrez [address] [address] [email or web address] 12/10/2025 10:40 AM EDT Blood Draw [facility] Ph[facility] [address] [place] [address] Lulú Vizcaino MBBS [address] [place] [address] [email or web address] 12/10/2025 11:40 AM EDT Office Visit [facility] at [address] [address] Lulú Vizcaino MBBS [address] [place] [address] [email or web address] 03/03/2026 8:30 AM EDT Telemedicine [facility] Cardiac Arrhythmia Service 32 [facility], 5th Floor, [address] [place] [address] Angel Domínguez MD 55 [facility] [address] [place] [address] [email or web address] documented as of this encounter Results [...] documented as of this encounter Care Teams [employer] Founder Relationship Specialty Start Date End Date Sherice John MD [address] [place] [address] PCP - General Internal Medicine 03/08/18 Deya Sotelo MD [facility] [address] [address] [email or web address] Primary Oncologist Hematology and Oncology 11/27/2211/18 Joni Deleon MD [address] [place] [address] [place] [address] Pulmonary Disease 07/18/23 Mikal Jones MD [address] [place] [address] [place] [address] [phone] Cardiology 07/23/23 Lulú Vizcaino MBBS [address] [place] [address] [place] [phone] [email or web address] Primary Oncologist Medical Oncology 11/29/23 documented as of this encounter Additional Source Comments The information contained in this document represents components of the legal health record. It is not the complete legal health record.[facility]
--- OUTSIDE RECORDS SUMMARY | 2025-06-22 14:10 | XMS_ITS | Encounter Summary ---
Author Organization [facility] Address [address] [place] [address] Phone Care Team Providers Care Pumping Station Supervisor Name Role Phone Sherice John MD Primary Care Provider Deya Sotelo MD Unavailable Joni Deleon MD Unavailable Mikal Jones MD Unavailable Lulú Vizcaino Unavailable [phone] Encounter Details Date Type Department Care Team (Late st Contact Info) Description 12/15/2020 Ancillary Orders [facility],Outside Imaging 30 [place], [place] [id number] System, Provider Not In, PhD Partners [address] [address] Social History Tobacco Use Types Packs/Day Years [...] 1:20 PM EST Office Visit [facility] [address] [place] [address] ShanRogelio, [address] [address] [email or web address] 11/25/2025 1:15 PM EDT Appointment [facility], Bone Density - [address] [address] Shan Rogelio [address] [address] [email or web address] 12/10/2025 10:40 AM EDT Blood Draw [facility] Phleb [address] [address] Lulú Vizcaino MBBS [address] [place] [address] [email or web address] 12/10/2025 11:40 AM EDT Office Visit [facility] at [address] [address] Lulú Vizcaino MBBS [address] [place] [address] [email or web address] 03/03/2026 8:30 AM EDT Telemedicine [facility] Cardiac Arrhythmia Service 32 [facility], 5th Floor, [address] [place] [address] Angel Domínguez MD [address] [facility] [address] [place] [address] [email or web address] documented as of this encounter [...] documented as of this encounter Care Teams Pumping Station Supervisor Relationship Specialty Start Date End Date Sherice John MD [address] [place] [address] [email or web address] PCP - General Internal Medicine 03/08/18 Deya Sotelo MD [address] [place] [address] [email or web address] Primary Oncologist Hematology and Oncology 11/27/2211/18 Joni Deleon MD [address] [place] [address] [place] [address] Pulmonary Disease 07/18/23 Mikal Jones MD [address] [place] [address] [place] [address] Cardiology 07/23/23 Lulú Vizcaino MBBS 2 [facility] [address] [place] [address] [email or web address] Primary Oncologist Medical Oncology 11/29/23 documented as of this encounter Additional Source Comments The information contained in this document represents components of the legal health record. It is not the complete legal health record.[facility]
--- OUTSIDE RECORDS SUMMARY | 2025-06-22 14:10 | XMS_ITS | Encounter Summary ---
Author Organization [facility] Address [address] [place] [address] Phone Care Team Providers Care Computer Graphic Artist Name Role Phone Sherice John MD Primary Care Provider [phone] Deya Sotelo MD Unavailable Joni Deleon MD Unavailable [phone] Mikal Jones MD Unavailable Lulú Vizcaino [facility] Unavailable [phone] Encounter Details Date Type Department Care Team (Latest Contact Info) Description 06/18/2020 Transcribe Orders Virtual Department 30 [place] [address] Sherice John MD [address] [place] [address] [email or web address] Closed fracture of multiple ribs of right [...] PM EST Office Visit [facility] 22 [place] [address] Rogelio Torrez DO 22 [place] [address] [email or web address] 11/25/2025 1:15 PM EDT Appointment [facility], Bone [address] [address] Rogelio Torrez [address] [address] [email or web address] 12/10/2025 10:40 AM EDT Blood Draw [facility] Phleb [facility] 30 [place] [address] Lulú Vizcaino MBBS [address] [place] [address] [email or web address] 12/10/2025 11:40 AM EDT Office Visit [facility] at [address] [address] Lulú Vizcaino MBBS [address] [place] [address] [email or web address] [place] 03/03/2026 8:30 AM EDT Telemedicine [facility] Cardiac Arrhythmia Service 32 [facility], 5th Floor, [address] [place] [address] Angel Domínguez MD 55 [facility] [address] [place] [address] [email or web address] documented as of this encounter Results [...] documented as of this encounter Care Teams Computer Graphic Artist Relationship Specialty Start Date End Date Sherice John MD [address] [place] [address] [email or web address] PCP - General Internal Medicine 03/08/18 Deya Sotelo MD [facility] [address] [address] [email or web address] Primary Oncologist Hematology and Oncology 11/27/2211/18 Joni Deleon MD [address] [place] [address] [place] [address] Pulmonary Disease 07/18/23 Mikal Jones MD [address] [place] [address] Center [address] [place] [address] Cardiology 07/23/23 Lulú Vizcaino MBBS 2 [facility] Center [address] [place] [address] [email or web address] .[email or web address] Primary Oncologist Medical Oncology 11/29/23 documented as of this encounter Additional Source Comments The information contained in this document represents components of the legal health record. It is not the complete legal health record.[facility]
--- OUTSIDE RECORDS SUMMARY | 2025-06-22 14:11 | XMS_ITS | Encounter Summary ---
Author Organization [facility] Address [address] [place] [address] Phone Care Team Providers Care Cash Applications Clerk Name Role Phone Sherice John MD Primary Care Provider [phone] Deya Sotelo MD Unavailable Joni Deleon MD Unavailable Mikal Jones MD Unavailable Lulú Vizcaino [facility] Unavailable [phone] Reason for Referral * MRI/CAT Scan - Closed Specialty Diagnoses / Procedures Referred By Contac t Referred To Contact Radiology Diagnoses Radicular pain in left arm Procedures MRI Cervical Spine Sherice John MD Phone: tel: fax: mailto:[email or web address] Referral ID Status Reason Start Date Expiration Date Visits Re quested Visits Authorized [id number] Closed 11/29/2018 11/29/2019 1 1 * MRI/CAT Scan - Closed Specialty Diagnoses / Procedures Referred By Contac t Referred To Contact Radiology Diagnoses Radicular pain in left arm Procedures MRI Thoracic Spine Sherice John MD Phone: tel: fax: mailto: Referral ID Status Reason Start Date Expiration Date Visits Re quested Visits Authorized [id number] Closed 11/29/2018 11/29/2019 1 1 Encounter Details Date Type Department Care Team (Latest Contact Info) Description 11/29/2018 Transcribe Orders Virtual Department [address] [place] [address] Sherice John MD [address] [place] [phone] [email or web address] [...] 1:20 PM EST Office Visit [facility] [address] [place] [address] Shan Rogelio [address] [address] 11/25/2025 1:15 PM EDT Appointment [facility], Bone Density [address] [address] Rogelio Torrez [address] [address] 12/10/2025 10:40 AM EDT Blood Draw [facility] Phleb [facility] 30 [place] [address] Lulú Vizcaino, MBBS [address] [place] [address] [email or web address] 12/10/2025 11:40 AM EDT Office Visit [facility] [place] 30 [place] [address] Lulú Vizcaino MBBS 30 [place] [address] [email or web address] 03/03/2026 8:30 AM EDT Telemedicine [facility] Cardiac Arrhythmia Service 32 [facility], 5th Floor, [address] [place] [address] Angel Domínguez MD 55 [facility] [address] [place] [address] [email or web address] documented as of this encounter Results [...] evidence for cord edema or myelomalacia. POS [id number] Edited by: Brandi Mosley on 12/13/2018 9:32 [...] without evidencefor cord edema or myelomalacia. POS [id number] Edited by: Brandi Mosley on 12/13/2018 9:32 AM Sherice John MD IMG MR XSPECIALTY [...] without any significant canal narrowing. POS - [id number] Edited by: Brandi Mosley on 12/13/2018 9:33 [...] of L1 and minimal disc bulging at G78-O8xyebilurd in mild canal stenosis. 2. No levels of any significant neural foraminal stenosis in the thoracicspine. 3. Tiny disc protrusions at T5-T6 and T7-T8 without any significant canalnarrowing. POS - [id number] Edited by: Brandi Molsey on 12/13/2018 9:33 AM Sherice John MD [...] documented as of this encounter Care Teams Cash Applications Clerk Relationship Specialty Start Date End Date Sherice John MD [address] [place] [address] [email or web address] PCP - General Internal Medicine 03/08/18 Deya Sotelo MD [address] [place] [address] [email or web address] Primary Oncologist Hematology and Oncology 11/27/2211/18 Joni Deleon MD [address] [place] [address] [place] [address] Pulmonary Disease 07/18/23 Mikal Jones MD [address] [place] [address] [place] [address] Cardiology 07/23/23 Lulú Vizcaino MBBS [address] [place] [address] [place] [address] [email or web address] Primary Oncologist Medical Oncology 11/29/23 documented as of this encounter Additional Source Comments The information contained in this document represents components of the legal health record. It is not the complete legal health record.[facility]
--- OUTSIDE RECORDS SUMMARY | 2025-06-22 14:11 | XMS_ITS | Encounter Summary ---
Author Organization [facility] Address [address] [place] [address] Phone Care Team Providers Care Customer Support Agent Name Role Phone Sherice John MD Primary Care Provider Deya Sotelo MD Unavailable [phone] Joni Deleon MD Unavailable Mikal Jones MD Unavailable Lulú Vizcaino [facility] Unavailable [phone] Encounter Details Date Type Department Care Team (Latest Contact Info) Description 06/10/2020 Transcribe Orders Virtual Department 30 [place] [address] Sherice John MD [address] [place] [address] [email or web address] Rib injury (Primary Dx) Social History Tobacco [...] PM EST Office Visit [facility] 22 [place] [address] Shan Rogelio [address] [address] [email or web address] 11/25/2025 1:15 PM EDT Appointment [facility], [address] [address] Rogelio Torrez [address] [address] [email or web address] [email or web address] 12/10/2025 10:40 AM EDT Blood Draw [facility] Phleb [facility] [address] [place] [address] Lulú Vizcaino MBBS [address] [place] [address] [email or web address] 12/10/2025 11:40 AM EDT Office Visit [facility] at [address] [address] Lulú Vizcaino MBBS [address] [place] [address] [email or web address] 03/03/2026 8:30 AM EDT Telemedicine [facility] Cardiac Arrhythmia Service 32 [facility], 5th Floor, [address] [place] [address] Angel Domínguez MD 55 [facility] [address] [place] [address] [email or web address] documented as of this encounter [...] documented as of this encounter Care Teams Customer Support Agent Relationship Specialty Start Date End Date Sherice John MD [address] [place] [address] [email or web address] PCP - General Internal Medicine 03/08/18 Deya Sotelo MD [facility] [address] [address] [email or web address] Primary Oncologist Hematology and Oncology 11/27/2211/18 Joni Deleon MD [address] [place] [address] [place] [address] Pulmonary Disease 07/18/23 Mikal Jones MD [address] [place] [address] Center [address] [place] [address] Cardiology 07/23/23 Lulú Vizcaino MBBS 2 [facility] Center [address] [place] [address] [email or web address] .[facility] Primary Oncologist Medical Oncology 11/29/23 documented as of this encounter Additional Source Comments The information contained in this document represents components of the legal health record. It is not the complete legal health record.[facility]
--- OUTSIDE RECORDS SUMMARY | 2025-06-22 14:11 | XMS_ITS | Encounter Summary ---
Author Organization [facility] Address [address] [place] [address] [place] [address] Phone Care Team Providers Care Vp Respiratory Name Role Phone Sherice John MD Primary Care Provider Joni Deleon MD Unavailable Mikal Jones MD Unavailable [phone] Lulú Vizcaino [facility] Unavailable [phone] Encounter Details Date Type Department Care Team (Late st Contact Info) Description 05/05/2024 Procedure Pass [facility] Endoscopy Admitting Dept Virtual Department 30 [place] [address] Social History Tobacco Use Types Packs/Day Years [...] 1:20 PM EST Office Visit [facility] [address] [place] [address] Rogelio Torrez [address] [address] 11/25/2025 1:15 PM EDT Appointment [facility], Bone [address] [address] Rogelio Torrez [address] [address] 12/10/2025 10:40 AM EDT Blood Draw [facility] Phleb [facility] [address] [place] [address] Lulú Vizcaino, BERNABEBS [address] [place] [address] [email or web address] 12/10/2025 11:40 AM EDT Office Visit [facility] at [address] [address] Lulú Vizcaino MBBS 30 [place] [address] [email or web address] 03/03/2026 8:30 AM EDT Telemedicine [facility] Cardiac Arrhythmia Service 32 [facility], 5th Floor, [address] [place] [address] Angel Domínguez MD 55 [facility] [address] [place] [address] [email or web address] documented as of this encounter Visit Diagnoses Not on filedocumented in this encounter Care Teams Vp Respiratory Relationship Specialty Start Date End Date Sherice John MD [address] [place] [address] [email or web address] PCP - General Internal Medicine 03/08/18 Joni Deleon MD [address] [place] [address] [place] [address] Pulmonary Disease 07/18/23 Mikal Jones MD [address] [place] [address] [address] [place] [address] Cardiology 07/23/23 Lulú Vizcaino MBBS [address] [place] [address] [address] [place] [address] [email or web address] Primary Oncologist Medical Oncology 11/29/23 documented as of this encounter Additional Source Comments The information contained in this document represents components of the legal health record. It is not the complete legal health record.[facility]
--- OUTSIDE RECORDS SUMMARY | 2025-06-22 14:11 | XMS_ITS | Encounter Summary ---
Author Organization [facility] Address [address] [place] [address] Phone Care Team Providers Care Computer Repair Technician Name Role Phone Sherice John MD Primary Care Provider [phone] Joni Deleon MD Unavailable Mikal Jones MD Unavailable Lulú Vizcaino [facility] Unavailable Encounter Details Date Type Department Care Team (Latest Contact Info) Description 05/30/2024 Transcribe Orders Virtual Department 30 [place] [address] Sherice John MD 73 [place] [address] [email or web address] Right foot pain (Primary Dx) Social History [...] 1:20 PM EST Office Visit [facility] [address] [place] [address] Rogelio Torrez [address] [address] 11/25/2025 1:15 PM EDT Appointment [facility], Bone Density - [address] [address] Rogelio Torrez DO [address] [place] [address] 12/10/2025 10:40 AM EDT Blood Draw [facility] Phleb [facility] [address] [place] [address] Lulú Vizcaino, JORGE [address] [place] [address] [email or web address] 12/10/2025 11:40 AM EDT Office Visit [facility] [place] Miguel Angel 30 [place] [address] Lulú Vizcaino MBBS 30 [place] [address] [email or web address] 03/03/2026 8:30 AM EDT Telemedicine [facility] Cardiac Arrhythmia Service 32 [facility], 5th Floor, [address] [place] [address] Angel Domínguez MD 55 [facility] [address] [place] [address] [email or web address] documented as of this encounter Visit Diagnoses Diagnosis Right foot pain- Primary Pain in soft tissues of limb documented in this encounter Care Teams Computer Repair Technician Relationship Specialty Start Date End Date Sherice John MD [address] [place] [address] [email or web address] PCP - General Internal Medicine 03/08/18 Joni Deleon MD [address] [place] [address] [place] [address] Pulmonary Disease 07/18/23 Mikal Jones MD [address] [place] [address] [place] [address] Cardiology 07/23/23 Lulú Vizcaino MBBS 2 [facility] [address] [place] [address] [email or web address] Primary Oncologist Medical Oncology 11/29/23 documented as of this encounter Additional Source Comments The information contained in this document represents components of the legal health record. It is not the complete legal health record.[facility]
--- OUTSIDE RECORDS SUMMARY | 2025-06-22 14:11 | XMS_ITS | Encounter Summary ---
Author Organization [facility] Address [address] [place] [address] Phone Care Team Providers Care Food Counselor Name Role Phone Sherice John MD Primary Care Provider Deya Sotelo MD Unavailable Joni Deleon MD Unavailable [phone] Mikal Jones MD Unavailable Lulú Vizcaino [facility] Unavailable [phone] Encounter Details Date Type Department Care Team (Late st Contact Info) Description 03/08/2018 Ancillary Orders Virtual Department 30 [place] [address] Juana Woody MD [address] [address] [email or web address] Cal[facility] ureter Social History Tobacco Use [...] 1:20 PM EST Office Visit [facility] [address] [place] [address] Shan Rogelio [address] [address] [email or web address] 11/25/2025 1:15 PM EDT Appointment [facility], Bone Density - [address] [address] Rogelio Torrez [address] [address] [email or web address] 12/10/2025 10:40 AM EDT Blood Draw [facility] Phleb [facility] [address] [place] [address] Lulú Vizcaino MBBS [address] [place] [address] [email or web address] 12/10/2025 11:40 AM EDT Office Visit [facility] at [address] [address] Lulú Vizcaino MBBS [address] [place] [address] [email or web address] 03/03/2026 8:30 AM EDT Telemedicine [facility] Cardiac Arrhythmia Service 32 [facility], 5th Floor, [address] [place] [address] Angel Domínguez MD 55 [facility] [address] [place] [address] [email or web address] documented as of this encounter [...] documented as of this encounter Care Teams Food Counselor Relationship Specialty Start Date End Date Sherice John MD [address] [place] [address] PCP - General Internal Medicine 03/08/18 Deya Sotelo MD [facility] [address] [address] [email or web address] Primary Oncologist Hematology and Oncology 11/27/2211/18 Joni Deleon MD [address] [place] [address] [place] [address] Pulmonary Disease 07/18/23 Mikal Jones MD [address] [place] [address] [place] [address] Cardiology 07/23/23 Lulú Vizcaino MBBS [address] [place] [address] [place] [address] [place] [address] [email or web address] Primary Oncologist Medical Oncology 11/29/23 documented as of this encounter Additional Source Comments The information contained in this document represents components of the legal health record. It is not the complete legal health record.[facility]
--- OUTSIDE RECORDS SUMMARY | 2025-06-22 14:11 | XMS_ITS | Encounter Summary ---
Author Organization [facility] Address [address] [place] [address] [place] [address] Phone Care Team Providers Care Ramp Jockey Name Role Phone Sherice Paulino MD Primary Care Provider Joni Deleon MD Unavailable Mikal Jones MD Unavailable Lulú Vizcaino [facility] Unavailable Encounter Details Date Type Department Care Team (Latest Contact Info) Description 06/20/2024 Transcribe Orders Virtual Department 30 [place] [address] Sherice Paulino MD 73 [place] [address] Osteoporosis with current pathological fracture, unspecified osteoporosis [...] PM EST Office Visit [facility] [address] [place] [address] Rogelio Torrez [address] [address] 11/25/2025 1:15 PM EDT Appointment [facility], Bone Density - [address] [address] Rogelio Torrez [address] [address] 12/10/2025 10:40 AM EDT Blood Draw [facility] Phleb [facility] [address] [place] [address] Lulú Vizcaino, JORGE [address] [place] [address] [email or web address] 12/10/2025 11:40 AM EDT Office Visit [facility] [place] 30 [place] [address] Lulú Vizcaino MBBS 30 [place] [address] [email or web address] 03/03/2026 8:30 AM EDT Telemedicine [facility] Cardiac Arrhythmia Service 32 [facility], 5th Floor, [address] [place] [address] Angel Domínguez MD 55 [facility] [address] [place] [address] [email or web address] documented as of this encounter Results * BD DXA AXIAL (SPINE) WITH HIP (11/24/2024 2:28 PM EDT) Anatomical Region Laterality Modality Bone Density Bone Density 11/24/2024 2:16 PM EDT Impressions 11/25/2024 12:54 PM EDT Interpretation: Osteopenia. Narrative 11/25/2024 12:54 PM EDT Referred By: SHERICE PAULINO Indications: Osteoporosis Scanner: HoloDeed A with serial# of [id number] located at [facility] Bone Density Scan (DXA) 11/24/24 Details [...] -2.5), or Osteoporosis (T-score <= -2.5). At [facility], T-scores are compared to peak bone [...] and prior bone density results. Procedure Note aJnis Sahu MD - 11/25/2024 Referred By: SHERICE PAULINO Indications: Osteoporosis Scanner: [employer] A with serial# of [id number] located at [facility] Bone Density Scan (DXA) 11/24/24 Details of [...] -2.5), or Osteoporosis (T-score <= -2.5). At [facility], T-scores are compared to peak bone [...] andprior bone density results. IMPRESSION: Interpretation: Osteopenia. Sherice Paulino MD [facility] BONE DENSITY DEXA Final Result documented in this encounter Visit Diagnoses Diagnosis Osteoporosis with current pathological fracture, unspecified osteoporosis type, sequela- Primary Osteoporosis with current pathological fracture, unspecified osteoporosis type, sequela documented in this encounter Care Teams Ramp Jockey Relationship Specialty Start Date End Date Sherice Paulino MD [address] [place] [address] [email or web address] PCP - General Internal Medicine 03/08/18 Joni Deleon MD [address] [place] [address] [place] [address] Pulmonary Disease 07/18/23 Mikal Jones MD 2 [facility] [address] [place] [address] Cardiology 07/23/23 Lulú Vizcaino MBBS [address] [place] [address] [address] [place] [address] [email or web address] Primary Oncologist Medical Oncology 11/29/23 documented as of this encounter Additional Source Comments The information contained in this document represents components of the legal health record. It is not the complete legal health record.[facility]
--- OUTSIDE RECORDS SUMMARY | 2025-06-22 14:11 | XMS_ITS | Clinical Summary ---
Author Organization [employer] Address [address] [facility] 7t [place] [address] Care Team Providers Care Preschool Assistant Teacher Name Role Phone Sherice John MD Primary Care Provider [phone] Allergies Active Allergy Reactions Criticality Noted Date [...] will f/up with both her pulm and endless track vehicle mechanic , continue daily weights and report if greater than 2 lb wt gain day to day or 5 lbs in one week. Self monitor closely for any new open wounds or bleeding as she is taking Eliquis 5 mg PO BID d/t hx PE and pulm HTN, ?cardiomyopathy, ? CHF. Recommended schedule her pulm and endless track vehicle mechanic followup visits soon and agrees to do [...] EDT): Encouraged to keep current with her tube washer and endless track vehicle mechanic given her multple complex pulm and cardio health diagnoses and history. Savannah's bp somewhat elevated and will self monitor bp/pulse and 02 sat daily and make/keep PCP, pulm and endless track vehicle mechanic followup visits and agrees to consult with reg admissions clerk for dietary advice to help with [...] on the results of her echocardiogram from [facility] and discussed with her if there are actionable findings. I did encourage her to follow-up with her new tube washer to determine if there are further investigations or treatment warranted for pulmonary hypertension. 11/22/18 CAIT: Mild Assessment & Plan (06/25/2024 8:30 PM EST): Followed by cardiology and also pulm HTN specialist in [place] Dr. Tangela Deleon. See HPI, encouraged to f/up both with her endless track vehicle mechanic who is prescribing her torsemide and with [...] Encounters Date Type Department Care Team Description 06/15/2025 11:40 AM EDT Telemedicine [address] [address] Sherice John MD 06/14/2025 Travel 06/02/[address] [address] Sherice John MD Age-related osteoporosis with current pathological fracture with delayed healing, subsequent encounter [address] [address] Sherice John MD 05/04/2025 Results Follow-Up [address] [place] [address] Sherice John MD US RENAL BI 05/04/2025 Orders Only [facility] Information [address] [address] Sherice John MD 05/04/[address] [address] Sherice John MD Prior Authorization (pregabalin) 05/02/2025 Orders Only [facility] Information [address] [address] Pcp, [place] Unassigned 05/01/2025 10:00 AM EDT Office Visit [address] [address] Sherice John MD Closed fracture of sternum [...] Travel 04/30/2025 10:30 AM EDT Office Visit [facility] OPTOMETRY [address] [place] [address] Parris Torres, OD Glaucoma suspect of both eyes (Primary Dx); Keratitis sicca, bilateral; Presbyopia of both eyes 04/24/2025 Travel 04/24/[address] [address] Sherice John MD Primary insomnia 04/15/2025 Orders Only [facility] Information [address] [address] Sherice John MD 04/08/2025 Telephone [facility] MEDICAL [address] [place] [address] Sherice John MD ED visit 04/08/2025 Orders Only [facility] MEDICAL [address] [place] [address] Provider, MD Kiersten from Last 3 Months Immunizations Immunization Administration [...] degree (e.g., MA, MS, Luis Eduardo, MEd, LEGAL ADMINISTRATOR, MARLIN) 02/17/2025 Comments Unknown Sex and Gender [...] Description 08/04/2025 9:30 AM EST Office Visit [facility] MEDICAL [address] [place] [address] Sherice John MD [address] [place] [address] Health Maintenance Due Date Last Done Comments [...] eye (OS): RNFL/GCC is normal; stable us Nye Melissa OD OPHTH TOMOGRAPHY Final Result * XR [...] PM EST) Cholesterol, Total 164 (<200) MG/DL [facility] Triglyceride (mg/dL) in Serum/Plasma 83 (<150) MG/DL [facility] HDL Cholesterol 75 (>39) MG/DL [facility] LDL Cholesterol, Calculated 72 (0-130) MG/DL [facility] Non HDL Chol. (LDL+VLDL) 89 (<160) MG/DL [facility] Comment: Testing performed or reported by [facility], [facility], a Service of [facility], [address] [place] [address] Lulu Masters MD, Group Burner Machine [facility]# [id number] Blood Venous blood specimen / Unknown 09/07/2022 12:08 PM EST 09/07/2022 12:10 PM EST Sherice John MD LAB BLOOD ORDERABLES Final Resul t [address] [address] * Pap Smear (02/01/2016 12:00 AM EDT) Swab Historical Provider LAB CYTOLOGY ORDERABLES F inal Result * Hepatitis C Antibody (08/20/2011 3:22 PM EST) Hepatitis C Antibody Nonreactive Blood 08/20/2011 3:22 PM EST Historical Provider POINT OF CARE TEST ENTER/ EDIT ORDERABLES Final Result from Last 3 Months or Most Recently Relevant to Health Maintenance Insurance [facility] MEDICARE REPLACEMENT [facility] [place] [id number] [place] [id number] Care Teams Preschool Assistant Teacher Relationship Specialty Start Date End Date Sherice John MD [address] [place] [address] PCP - General Internal Medicine 08/08/22
--- OUTSIDE RECORDS SUMMARY | 2025-06-22 14:11 | XMS_ITS | Encounter Summary ---
Author Organization [facility] Address [address] [place] [address] Phone Care Team Providers Care Signals Analyst Name Role Phone Sherice John MD Primary Care Provider [phone] Deya Sotelo MD Unavailable [phone] Joni Deleon MD Unavailable Mikal Jones MD Unavailable Lulú Vizcaino Unavailable [phone] Encounter Details Date Type Department Care Team (Late st Contact Info) Description 10/25/2023 Procedure Pass [facility], [address] [address] Social History Tobacco Use Types Packs/Day Years [...] 1:20 PM EST Office Visit [facility] [address] [place] [address] Rogelio Torrez [address] [address] [email or web address] 11/25/2025 1:15 PM EDT Appointment [facility], [address] [address] Rogelio Torrez [address] [address] [email or web address] 12/10/2025 10:40 AM EDT Blood Draw [facility] Phleb [address] [address] Lulú Vizcaino MBBS [address] [place] [address] [email or web address] 12/10/2025 11:40 AM EDT Office Visit [facility] at [address] [address] Lulú Vizcaino MBBS [address] [place] [address] [email or web address] 03/03/2026 8:30 AM EDT Telemedicine [facility] Cardiac Arrhythmia Service 32 [facility], 5th Floor, [address] [place] [address] Angel Domínguez MD [address] [place], [place] [address] [place] [address] [email or web address] documented as of this encounter Visit Diagnoses Not on filedocumented in this encounter Care Teams Signals Analyst Relationship Specialty Start Date End Date Sherice John MD [address] [place] [address] [email or web address] PCP - General Internal Medicine 03/08/18 Deya Sotelo MD [address] [address] [email or web address] Primary Oncologist Hematology and Oncology 11/27/2211/18 Joni Deleon MD [address] [place] [address] [place] [address] Pulmonary Disease 07/18/23 Mikal Jones MD 2 [facility] [address] [place] [address] Cardiology 07/23/23 Lulú Vizcaino MBBS [address] [facility] [address] [place] [address] [email or web address] Primary Oncologist Medical Oncology 11/29/23 documented as of this encounter Additional Source Comments The information contained in this document represents components of the legal health record. It is not the complete legal health record.[facility]
--- OUTSIDE RECORDS SUMMARY | 2025-06-22 14:11 | XMS_ITS | Encounter Summary ---
Author Organization [facility] Address [address] [place] [address] [address] [place] [address] Phone Care Team Providers Care Life Skills Coordinator Volunteer Name Role Phone Sherice John MD Primary Care Provider Deya Sotelo MD Unavailable [phone] Joni Deleon MD Unavailable Mikal Jones MD Unavailable [phone] Lulú Vizcaino [facility] Unavailable [phone] Encounter Details Date Type Department Care Team (Late st Contact Info) Description 06/07/2023 Procedure Pass [facility] Holter Lab 32 [facility], 5th Floor, [address] [place] [address] Social History Tobacco Use Types Packs/Day Years [...] PM EST Office Visit [facility] [address] [place] [address] Rogelio Torrez [address] [address] [email or web address] 11/25/2025 1:15 PM EDT Appointment [facility], [address] [address] Rogelio Torrez [address] [address] [email or web address] 12/10/2025 10:40 AM EDT Blood Draw [facility] Phleb [address] [address] Lulú Vizcaino MBBS [address] [place] [address] [email or web address] 12/10/2025 11:40 AM EDT Office Visit [facility] at [address] [address] Lulú Vizcaino MBBS [address] [place] [address] [email or web address] 03/03/2026 8:30 AM EDT Telemedicine [facility] Cardiac Arrhythmia Service 32 [facility], 5th Floor, [address] [place] [address] Angel Domínguez MD [address] [place], [place] [address] [place] [address] [email or web address] documented as of this encounter Visit Diagnoses Not on filedocumented in this encounter Care Teams Life Skills Coordinator Volunteer Relationship Specialty Start Date End Date Sherice John MD [address] [place] [address] [email or web address] PCP - General Internal Medicine 03/08/18 Deya Sotelo MD [address] [address] [email or web address] Primary Oncologist Hematology and Oncology 11/27/2211/18 Joni Deleon MD [address] [place] [address] [place] [address] Pulmonary Disease 07/18/23 Mikal Jones MD 2 [facility] [address] [place] [address] Cardiology 07/23/23 Lulú Vizcaino MBBS 2 [facility] [address] [place] [address] [email or web address] Primary Oncologist Medical Oncology 11/29/23 documented as of this encounter Additional Source Comments The information contained in this document represents components of the legal health record. It is not the complete legal health record.[facility]
--- OUTSIDE RECORDS SUMMARY | 2025-06-22 14:11 | XMS_ITS | Encounter Summary ---
Author Organization [facility] Address [address] [place] [address] Phone Care Team Providers Care Elevator Troubleshooter Name Role Phone Sherice John MD Primary Care Provider Deya Sotelo MD Unavailable Joni Deleon MD Unavailable [phone] Mikal Jones MD Unavailable Lulú Vizcaino Unavailable [phone] Encounter Details Date Type Department Care Team (Late st Contact Info) Description 01/31/2023 Procedure Pass [facility], Ct Scan - [address] [address] Social History Tobacco Use Types Packs/Day Years [...] PM EST Office Visit [facility] [address] [place] [address] Rogelio Torrez [address] [address] [email or web address] 11/25/2025 1:15 PM EDT Appointment [address] [address] Rogelio Torrez [address] [address] [email or web address] 12/10/2025 10:40 AM EDT Blood Draw [facility] Phleb [address] [address] Lulú Vizcaino MBBS [address] [place] [address] [email or web address] 12/10/2025 11:40 AM EDT Office Visit [facility] at [address] [address] Lulú Vizcaino MBBS [address] [place] [address] [email or web address] 03/03/2026 8:30 AM EDT Telemedicine [facility] Cardiac Arrhythmia Service 32 [facility], 5th Floor, [address] [place] [address] Angel Domínguez MD [address] [place], [place] [address] [place] [address] [email or web address] documented as of this encounter Visit Diagnoses Not on filedocumented in this encounter Care Teams Elevator Troubleshooter Relationship Specialty Start Date End Date Sherice John MD [address] [place] [address] [email or web address] PCP - General Internal Medicine 03/08/18 [place] [address] [place] [address] [email or web address] Primary Oncologist Hematology and Oncology 11/27/2211/18 Joni Deleon MD [address] [place] [address] [place] [address] Pulmonary Disease 07/18/23 Mikal Jones MD 2 [facility] [address] [place] [address] Cardiology 07/23/23 Lulú Vizcaino MBBS 2 [facility] [address] [place] [address] [email or web address] Primary Oncologist Medical Oncology 11/29/23 documented as of this encounter Additional Source Comments The information contained in this document represents components of the legal health record. It is not the complete legal health record.[facility]
--- OUTSIDE RECORDS SUMMARY | 2025-06-22 14:11 | XMS_ITS | Encounter Summary ---
Author Organization [facility] Address [address] [place] [address] Phone Care Team Providers Care Supervisor Cigar Processing Name Role Phone Sherice Jonh MD Primary Care Provider Deya Sotelo MD Unavailable Joni Deleon MD Unavailable Mikal Jones MD Unavailable Lulú Vizcaino Unavailable [phone] Encounter Details Date Type Department Care Team (Late st Contact Info) Description 05/10/2022 Procedure Pass [facility], Ct Scan - [address] [address] Social History Tobacco Use Types Packs/Day Years [...] 11:35 AM EDT Elaine Wray RN * Sully Suicide Severity Rating Scale (Screener/Recent Self-Report) Question [...] PM EST Office Visit [facility] [address] [place] [phone] Rogelio Torrez [address] [address] 11/25/2025 1:15 PM EDT Appointment [address] [address] Rogelio Torrez [address] [address] 12/10/2025 10:40 AM EDT Blood Draw [facility] Phleb [address] [address] Lulú Vizcaino MBBS [address] [place] [address] [email or web address] 12/10/2025 11:40 AM EDT Office Visit [facility] at [address] [address] Lulú Vizcaino MBBS [address] [place] [address] [email or web address] 03/03/2026 8:30 AM EDT Telemedicine [facility] Cardiac Arrhythmia Service 32 [facility], 5th Floor, [address] [place] [address] Angel Domínguez MD [address] [facility] [address] [place] [address] [email or web address] documented as of this encounter Visit Diagnoses Not on filedocumented in this encounter Additional Health Concerns Infection Onset Date Last Indicated Resolved Time CoV-Risk 07/04/2022 07/04/2022 07/15/2022 4:44 AM EST CoV-Risk 10/12/2022 10/12/2022 10/23/2022 1:22 AM EST CoV-Risk 10/25/2022 10/25/2022 11/05/2022 1:22 AM EDT CoV-Risk 11/24/2022 11/24/2022 12/05/2022 1:22 AM EDT documented as of this encounter Care Teams Supervisor Cigar Processing Relationship Specialty Start Date End Date Sherice John MD [address] [place] [address] [email or web address] PCP - General Internal Medicine 03/08/18 Deya Sotelo MD [facility] [address] [address] [email or web address] Primary Oncologist Hematology and Oncology 11/27/2211/18 Joni Deleon MD [address] [place] [address] [place] [address] Pulmonary Disease 07/18/23 Mikal Jones MD [address] [place] [address] Center [address] [place] [address] Cardiology 07/23/23 Lulú Vizcaino MBBS [address] [place] [address] [address] [place] [address] [email or web address] Primary Oncologist Medical Oncology 11/29/23 documented as of this encounter Additional Source Comments The information contained in this document represents components of the legal health record. It is not the complete legal health record.[facility]
--- OUTSIDE RECORDS SUMMARY | 2025-06-22 14:11 | XMS_ITS | Encounter Summary ---
Author Organization [facility] Address [address] [place] [address] Phone Care Team Providers Care Refrigerator Tester Name Role Phone Sherice John MD Primary Care Provider Deya Sotelo MD Unavailable Joni Deleon MD Unavailable Mikal Jones MD Unavailable Lulú Vizcaino Unavailable [phone] Encounter Details Date Type Department Care Team (Late st Contact Info) Description 11/29/2018 Procedure Pass [facility], [address] [address] Social History Tobacco Use Types Packs/Day Years [...] 1:20 PM EST Office Visit [facility] [address] [place] [address] [place] [address] Rogelio Torrez DO [address] [place] [address] [email or web address] 11/25/2025 1:15 PM EDT Appointment [facility], Bone Density - [address] [address] BremenRogelio, DO [address] [place] [address] [email or web address] 12/10/2025 10:40 AM EDT Blood Draw [facility] Phleb [address] [address] Lulú Vizcaino MBBS [address] [place] [address] [email or web address] 12/10/2025 11:40 AM EDT Office Visit [facility] at [address] [address] Lulú Vizcaino MBBS [address] [place] [address] [email or web address] 03/03/2026 8:30 AM EDT Telemedicine [facility] Cardiac Arrhythmia Service 32 [facility], 5th Floor, [address] [place] [address] Angel Domínguez MD [address] [facility] [address] [place] [address] [email or web address] documented as of this encounter Visit Diagnoses [...] documented as of this encounter Care Teams Refrigerator Tester Relationship Specialty Start Date End Date Sherice John MD [address] [place] [address] [email or web address] PCP - General Internal Medicine 03/08/18 Deya Sotelo MD [address] [place] [address] [email or web address] Primary Oncologist Hematology and Oncology 11/27/2211/18 Joni Deleon MD [address] [place] [address] [place] [address] Pulmonary Disease 07/18/23 Mikal Jones MD 2 [facility] [address] [place] [address] Cardiology 07/23/23 Lulú Vizcaino MBBS 2 [facility] [address] [place] [address] [email or web address] Primary Oncologist Medical Oncology 11/29/23 documented as of this encounter Additional Source Comments The information contained in this document represents components of the legal health record. It is not the complete legal health record.[facility]
--- OUTSIDE RECORDS SUMMARY | 2025-06-22 14:11 | XMS_ITS | Encounter Summary ---
Author Organization [facility] Address [address] [place] [address] [place] [address] Phone Care Team Providers Care Emt I/99 Name Role Phone Sherice John MD Primary Care Provider [phone] Joni Deleon MD Unavailable Mikal Jones MD Unavailable [phone] Lulú Vizcaino [facility] Unavailable [phone] Encounter Details Date Type Department Care Team (Late st Contact Info) Description 01/01/2024 Procedure Pass [facility] Holter Lab 32 [facility], 5th Floor, [address] [place] [address] Social History Tobacco Use Types Packs/Day Years [...] 1:20 PM EST Office Visit [facility] [address] [place] [address] Rogelio Torrez [address] [address] [email or web address] 11/25/2025 1:15 PM EDT Appointment [facility], [address] [address] Rogelio Torrez [address] [address] [email or web address] 12/10/2025 10:40 AM EDT Blood Draw [facility] Phleb [facility] [address] [place] [address] Lulú Vizcaino MBBS [address] [place] [address] [email or web address] 12/10/2025 11:40 AM EDT Office Visit [facility] at [address] [address] Lulú Vizcaino MBBS [address] [place] [address] [email or web address] 03/03/2026 8:30 AM EDT Telemedicine [facility] Cardiac Arrhythmia Service 32 [facility], 5th Floor, [address] [place] [address] Angel Domínguez MD [address] [facility] [address] [place] [address] [email or web address] documented as of this encounter Visit Diagnoses Not on filedocumented in this encounter Care Teams Emt I/99 Relationship Specialty Start Date End Date Sherice John MD [address] [place] [address] [email or web address] PCP - General Internal Medicine 03/08/18 Joni Deleon MD [address] [place] [address] [place] [address] Pulmonary Disease 07/18/23 Mikal Jones MD [address] [place] [address] [place] [address] Cardiology 07/23/23 Lulú Vizcaino, JORGE [address] [place] [address] [place] [address] [email or web address] Primary Oncologist Medical Oncology 11/29/23 documented as of this encounter Additional Source Comments The information contained in this document represents components of the legal health record. It is not the complete legal health record.[facility]
--- OUTSIDE RECORDS SUMMARY | 2025-06-22 14:11 | XMS_ITS | Encounter Summary ---
Author Organization [facility] Address [address] [place] [address] Phone Care Team Providers Care Entertainment Dancer Name Role Phone Sherice John MD Primary Care Provider [phone] Joni Deleon MD Unavailable [phone] Mikal Jones MD Unavailable Lulú Vizcaino [facility] Unavailable Reason for Referral * MRI/CAT Scan - Closed Specialty Diagnoses / Procedures Referred By Tyler yeung Referred To Contact Radiology Diagnoses Syncope, unspecified syncope type Procedures MRI Brain Sherice John MD Phone: tel: fax: [email or web address] Referral ID Status Reason Start Date Expiration Date Visits Re quested Visits Authorized [id number] Closed 09/24/2024 09/24/2025 1 1 Encounter Details Date Type Department Care Team (Latest Contact Info) Description 09/24/2024 Transcribe Orders Virtual Department 30 [place] [address] Sherice John MD 73 [place] [address] Syncope, unspecified syncope type (Primary Dx) Social [...] 1:20 PM EST Office Visit [facility] [address] [place] [address] Rogelio Torrez DO [address] [place] [address] 11/25/2025 1:15 PM EDT Appointment [facility], Bone [address] [address] Rogelio Torrez DO 22 [place] [address] [email or web address] 12/10/2025 10:40 AM EDT Blood Draw [facility] Phleb MG 30 [place] [address] Lulú Vizcaino MBBS 30 [place] [address] [email or web address] 12/10/2025 11:40 AM EDT Office [facility] [place] 30 [place] [address] Lulú Vizcaino [address] [address] [email or web address] 03/03/2026 8:30 AM EDT Telemedicine [facility] Cardiac Arrhythmia Service 32 [facility], 5th Floor, [address] [place] [address] Angel Domínguez MD 55 [facility] [place] [address] [email or web address] documented as of this encounter Results [...] indication for this examination in [facility]:Outside Radiology Order; Syncope, unspecified syncope type TECHNIQUE: [...] type documented in this encounter Care Teams Entertainment Dancer Relationship Specialty Start Date End Date Sherice John MD [address] [place] [address] PCP - General Internal Medicine 03/08/18 Joni Deleon MD [address] [place] [address] [place] [address] Pulmonary Disease 07/18/23 Mikal Jones MD [address] [place] [address] [place] [address] Cardiology 07/23/23 Lulú Vizcaino MBBS [address] [place] [address] [address] [place] [address] [email or web address] Primary Oncologist Medical Oncology 11/29/23 documented as of this encounter Additional Source Comments The information contained in this document represents components of the legal health record. It is not the complete legal health record.[facility]
--- OUTSIDE RECORDS SUMMARY | 2025-06-22 14:11 | XMS_ITS | Encounter Summary ---
Author Organization [facility] Address [address] [place] [address] Phone Care Team Providers Care Truck Packer Name Role Phone Sherice John MD Primary Care Provider Deya Sotelo MD Unavailable [phone] Joni Deleon MD Unavailable Mikal Jones MD Unavailable [phone] Lulú Vizcaino [facility] Unavailable [phone] Encounter Details Date Type Department Care Team (Late st Contact Info) Description 10/22/2018 Ancillary Orders Virtual Department 30 [place] [address] Sherice John MD [address] [place] [address] [email or web address] Shortness of breath Social History Tobacco Use [...] Department Care Team (Late Contact Info) Description 09/28/2025 1:20 PM EST Office Visit [facility] [address] [place] [address] Rogelio Torrez [address] [address] [email or web address] 11/25/2025 1:15 PM EDT Appointment [facility], Bone Density - [address] [address] Rogelio Torrez [address] [address] [email or web address] 12/10/2025 10:40 AM EDT Blood Draw [facility] Phleb [address] [address] Lulú Vizcaino MBBS [address] [place] [address] [email or web address] 12/10/2025 11:40 AM EDT Office Visit [facility] Cancer Center at [address] [address] Lulú Vizcaino MBBS [address] [place] [address] [email or web address] 03/03/2026 8:30 AM EDT Telemedicine [facility] Cardiac Arrhythmia Service 32 [facility], 5th Floor, [address] [place] [address] Angel Domínguez MD 55 [facility] [place] [address] [email or web address] documented as of this encounter [...] documented as of this encounter Care Teams Truck Packer Relationship Specialty Start Date End Date Sherice John MD [address] [place] [address] PCP - General Internal Medicine 03/08/18 Deya Sotelo MD [address] [address] [email or web address] Primary Oncologist Hematology and Oncology 11/27/2211/18 Joni Deleon MD [address] [place] [address] [place] [address] Pulmonary Disease 07/18/23 Mikal Jones MD [address] [place] [address] [place] [address] Cardiology 07/23/23 Lulú Vizcaino MBBS [address] [place] [address] [place] [address] [email or web address] Primary Oncologist Medical Oncology 11/29/23 documented as of this encounter Additional Source Comments The information contained in this document represents components of the legal health record. It is not the complete legal health record.[facility]
--- OUTSIDE RECORDS SUMMARY | 2025-06-22 14:11 | XMS_ITS | Encounter Summary ---
Author Organization [facility] Address [address] [place] [address] Phone Care Team Providers Care Crate Tier Name Role Phone Sherice John MD Primary Care Provider Deya Sotelo MD Unavailable Joni Deleon MD Unavailable [phone] Mikal Jones MD Unavailable [phone] Lulú Vizcaino Unavailable [phone] Encounter Details Date Type Department Care Team (Late st Contact Info) Description 10/25/2022 Procedure Pass [facility], Ct Scan - [address] [address] Social History Tobacco Use Types Packs/Day Years [...] No Risk Indicated 10/25/2022 2:41 PM Rhea Ordaz RN * [place] Suicide Severity Rating Scale (Screener/Recent Self-Report) Question [...] 1:20 PM EST Office Visit [facility] [address] [place] [address] Rogelio Torrez [address] [address] 11/25/2025 1:15 PM EDT Appointment [address] [address] Rogelio Torrez [address] [address] 12/10/2025 10:40 AM EDT Blood Draw [facility] Phleb [address] [address] Lulú Vizcaino MBBS [address] [place] [address] [email or web address] 12/10/2025 11:40 AM EDT Office Visit [facility] at [address] [address] Lulú Vizcaino MBBS [address] [place] [address] [email or web address] 03/03/2026 8:30 AM EDT Telemedicine [place] Cardiac Arrhythmia Service 32 [facility], 5th Floor, [address] [place] [address] Angel Domínguez MD 55 [facility] GRB[address] [place] [address] [email or web address] documented as of this encounter Visit Diagnoses Not on filedocumented in this encounter Additional Health Concerns Infection Onset Date Last Indicated Resolved Time CoV-Risk 10/25/2022 10/25/2022 11/05/2022 1:22 AM EDT CoV-Risk 11/24/2022 11/24/2022 12/05/2022 1:22 AM EDT documented as of this encounter Care Teams Crate Tier Relationship Specialty Start Date End Date Sherice John MD [address] [place] [address] [email or web address] PCP - General Internal Medicine 03/08/18 Deya Sotelo MD [address] [place] [address] [email or web address] Primary Oncologist Hematology and Oncology 11/27/2211/18 Joni Deleon MD [address] [place] [address] [place] [address] Pulmonary Disease 07/18/23 Mikal Jones MD 2 [facility] [address] [place] [address] Cardiology 07/23/23 Lulú Vizcaino MBBS 2 [facility] [address] [place] [address] [email or web address] Primary Oncologist Medical Oncology 11/29/23 documented as of this encounter Additional Source Comments The information contained in this document represents components of the legal health record. It is not the complete legal health record.[facility]
--- OUTSIDE RECORDS SUMMARY | 2025-06-22 14:11 | XMS_ITS | Encounter Summary ---
Author Organization [facility] Address [address] [place] [address] Phone Care Team Providers Care Telephone Diaphragm Assembler Name Role Phone Sherice John MD Primary Care Provider [phone] Deya Sotelo MD Unavailable Joni Dleeon MD Unavailable Mikal Jones MD Unavailable Lulú Vizcaino Unavailable Encounter Details Date Type Department Care Team (Late st Contact Info) Description 11/29/2018 Procedure Pass [facility], [address] [address] Social History Tobacco Use Types Packs/Day Years [...] 1:20 PM EST Office Visit [facility] [address] [place] [address] [place] [address] Rogelio Torrez DO 22 [place] [address] [email or web address] 11/25/2025 1:15 PM EDT Appointment [facility], Bone Density - [address] [address] ErieRogelio, DO 22 [place] [address] [email or web address] 12/10/2025 10:40 AM EDT Blood Draw [facility] Phleb [address] [address] Lulú Vizcaino MBBS [address] [place] [address] [email or web address] 12/10/2025 11:40 AM EDT Office Visit [facility] at [address] [address] Lulú Vizcaino MBBS [address] [place] [address] [email or web address] 03/03/2026 8:30 AM EDT Telemedicine [facility] Cardiac Arrhythmia Service 32 [facility], 5th Floor, [address] [place] [address] Angel Domínguez MD 55 [facility] GRB[facility] [place] [address] [email or web address] documented as of this encounter [...] documented as of this encounter Care Teams Telephone Diaphragm Assembler Relationship Specialty Start Date End Date Sherice John MD [address] [place] [address] [email or web address] PCP - General Internal Medicine 03/08/18 Deya Sotelo MD [address] [place] [address] [email or web address] Primary Oncologist Hematology and Oncology 11/27/2211/18 Joni Deleon MD [address] [place] [address] [place] [address] Pulmonary Disease 07/18/23 Mikal Jones MD 2 [facility] [address] [place] [address] Cardiology 07/23/23 Lulú Vizcaino MBBS 2 [facility] [address] [place] [address] [email or web address] .[email or web address] Primary Oncologist Medical Oncology 11/29/23 documented as of this encounter Additional Source Comments The information contained in this document represents components of the legal health record. It is not the complete legal health record.[facility]
--- OUTSIDE RECORDS SUMMARY | 2025-06-22 14:11 | XMS_ITS | Encounter Summary ---
Author Organization [facility] Address [address] [place] [address] Phone Care Team Providers Care Gray Tender Name Role Phone Sherice John MD Primary Care Provider Deya Sotelo MD Unavailable [phone] Joni Deleon MD Unavailable Mikal Jones MD Unavailable Lulú Vizcaino [facility] Unavailable [phone] Encounter Details Date Type Department Care Team (Latest Contact Info) Description 11/04/2019 Transcribe Orders Virtual Department 30 [place] [address] Sherice John MD [address] [place] [address] [email or web address] Pneumonia due to infectious organism, unspecified laterality, [...] 1:20 PM EST Office Visit [facility] [address] [place] [address] Rogelio Torrez DO [address] [place] [address] [email or web address] 11/25/2025 1:15 PM EDT Appointment [facility], Bone [address] [address] Rogelio Torrez [address] [address] [email or web address] 12/10/2025 10:40 AM EDT Blood Draw [facility] Phleb [facility] [address] [place] [address] Lulú Vizcaino MBBS [address] [place] [address] [email or web address] 12/10/2025 11:40 AM EDT Office Visit [facility] Center at [address] [address] Lulú Vizcaino MBBS [address] [place] [address] [email or web address] 03/03/2026 8:30 AM EDT Telemedicine [facility] Cardiac Arrhythmia Service 32 [facility], 5th Floor, [address] [place] [address] Angel Domínguez MD 55 [facility] GRB[facility] [place] [address] [email or web address] documented as of this encounter Visit [...] documented as of this encounter Care Teams Gray Tender Relationship Specialty Start Date End Date Sherice John MD [address] [place] [address] [email or web address] PCP - General Internal Medicine 03/08/18 Deya Sotelo MD [address] [place] [address] [email or web address] Primary Oncologist Hematology and Oncology 11/27/2211/18 Joni Deleon MD [address] [place] [address] [place] [address] Pulmonary Disease 07/18/23 Mikal Jones MD [address] [place] [address] [place] [address] Cardiology 07/23/23 Lulú Vizcaino MBBS [address] [place] [address] [address] [place] [address] [email or web address] Primary Oncologist Medical Oncology 11/29/23 documented as of this encounter Additional Source Comments The information contained in this document represents components of the legal health record. It is not the complete legal health record.[facility]
--- OUTSIDE RECORDS SUMMARY | 2025-06-22 14:11 | XMS_ITS | Encounter Summary ---
Author Organization [employer] Address 75 [facility] 7t [place] [address] Care Team Providers Care Impregnator Name Role Phone Sherice John MD Primary Care Provider [phone] Encounter Details Date Type Department Care Team (Late st Contact Info) Description 02/24/2025 Orders Only [facility] [address] [place] [address] Sherice John MD 73 [place] [address] Social History Tobacco Use Types Packs/Day Years [...] degree (e.g., DEVENDRA, MS, Luis Eduardo, MEd, KENO ATTENDANT, MARLIN) 02/17/2025 Comments Unknown Sex and Gender [...] Description 08/04/2025 9:30 AM EST Office Visit [facility] MEDICAL 73 [place] [address] Sherice John MD 73 [place] [address] documented as of this encounter Procedures Procedure [...] on filedocumented in this encounter Care Teams Impregnator Relationship Specialty Start Date End Date Sherice John MD 73 [place] [address] PCP - General Internal Medicine 08/08/22 documented as of this encounter
--- OUTSIDE RECORDS SUMMARY | 2025-06-22 14:11 | XMS_ITS | Encounter Summary ---
Author Organization [facility] Address [address] [place] [address] [place] [address] Phone Care Team Providers Care Name Plate Stamper Name Role Phone Sherice John MD Primary Care Provider Joni Deleon MD Unavailable Mikal Jones MD Unavailable [phone] Lulú Vizcaino [facility] Unavailable Encounter Details Date Type Department Care Team (Late st Contact Info) Description 05/06/2024 Procedure Pass [facility] Endoscopy Admitting Dept Virtual Department 30 [place] [address] Social History Tobacco Use Types Packs/Day Years [...] PM EST Office Visit [facility] [address] [place] [address] Rogelio Torrez [address] [address] 11/25/2025 1:15 PM EDT Appointment [facility], Bone [address] [address] Rogelio Torrez [address] [address] 12/10/2025 10:40 AM EDT Blood Draw [facility] Phleb [facility] [address] [place] [address] Lulú Vizcaino, BERNABEBS [address] [place] [address] [email or web address] 12/10/2025 11:40 AM EDT Office Visit [facility] at [address] [address] Lulú Vizcaino MBBS 30 [place] [address] [email or web address] 03/03/2026 8:30 AM EDT Telemedicine [facility] Cardiac Arrhythmia Service 32 [facility], 5th Floor, [address] [place] [address] Angel Domínguez MD 55 [facility] GRB[address] [place] [address] [email or web address] documented as of this encounter Visit Diagnoses Not on filedocumented in this encounter Care Teams Name Plate Stamper Relationship Specialty Start Date End Date Sherice John MD [address] [place] [address] [email or web address] PCP - General Internal Medicine 03/08/18 Joni Deleon MD [address] [place] [address] [place] [address] Pulmonary Disease 07/18/23 Mikal Jones MD [address] [place] [address] [address] [place] [address] Cardiology 07/23/23 Lulú Vizcaino MBBS [address] [place] [address] [address] [place] [address] [email or web address] Primary Oncologist Medical Oncology 11/29/23 documented as of this encounter Additional Source Comments The information contained in this document represents components of the legal health record. It is not the complete legal health record.[facility]
--- OUTSIDE RECORDS SUMMARY | 2025-06-22 14:12 | XMS_ITS | Encounter Summary ---
Author Organization [facility] Address [address] [place] [address] Phone Care Team Providers Care Business Continuity Strategy Director Name Role Phone Sherice John MD Primary Care Provider Deya Sotelo MD Unavailable Joni Deleon MD Unavailable [phone] Mikal Jones MD Unavailable Lulú Vizcaino Unavailable [phone] Encounter Details Date Type Department Care Team (Latest Contact Info) Description 11/22/2021 Transcribe Orders Virtual Department 30 [place] [address] Fide Tatum PA [address] [place] [address]. [place], [place] [phone] [email or web address] Left foot pain (Primary Dx) Social [...] PM EST Office Visit [facility] 22 [place] [address] Rogelio Torrez DO [address] [place] [address] [email or web address] 11/25/2025 1:15 PM EDT Appointment [facility], Bone [address] [address] Rogelio Torrez [address] [address] [email or web address] 12/10/2025 10:40 AM EDT Blood Draw [facility] Phleb [facility] [address] [place] [address] Lulú Vizcaino MBBS [address] [place] [address] [email or web address] 12/10/2025 11:40 AM EDT Office Visit [facility] Cancer Center at [address] [address] Lulú Vizcaino MBBS [address] [place] [address] [email or web address] 03/03/2026 8:30 AM EDT Telemedicine [facility] Cardiac Arrhythmia Service 32 [facility], 5th Floor, [address] [place] [address] Angel Domínguez MD 55 [facility] GRB[address] [place] [address] [email or web address] .[facility] documented as of this encounter Results [...] changes. Small-moderate sizeplantar calcaneal spur. Fide MANZO IMLeah XR LOWER EXTREMITY Final Result documented in [...] documented as of this encounter Care Teams Business Continuity Strategy Director Relationship Specialty Start Date End Date Sherice John MD 73 [place] [address] [email or web address] PCP - General Internal Medicine 03/08/18 Deya Sotelo MD [facility] [address] [address] [email or web address] Primary Oncologist Hematology and Oncology 11/27/2211/18 Joni Deleon MD [address] [place] [address] [place] [address] Pulmonary Disease 07/18/23 Mikal Jones MD [address] [place] [address] [place] [address] Cardiology 07/23/23 Lulú Vizcaino MBBS [address] [place] [address] [place] [address] [email or web address] .[email or web address] Primary Oncologist Medical Oncology 11/29/23 documented as of this encounter Additional Source Comments The information contained in this document represents components of the legal health record. It is not the complete legal health record.[facility]
--- OUTSIDE RECORDS SUMMARY | 2025-06-22 14:12 | XMS_ITS | Encounter Summary ---
Author Organization [employer] [facility] Address 75 [facility] 7t [place] [address] Care Team Providers Care Atg Architect Name Role Phone Sherice John MD Primary Care Provider [phone] Encounter Details Date Type Department Care Team (Late st Contact Info) Description 01/16/2024 Orders Only [facility] MEDICAL [address] [place] [address] Provider, MD Kiersten Social History Tobacco Use [...] Description 08/04/2025 9:30 AM EST Office Visit [facility] MEDICAL 73 [place] [address] Sherice John MD 73 [place] [address] documented as of this encounter Procedures Procedure Name Priority Date/Time Associated Diagnosis Comments TRANSTHORACIC ECHO (TTE) COMPLETE Routine 01/03/2024 4:27 AM EDT documented in this encounter Results * Transthoracic echo (TTE) complete (01/03/2024 4:27 AM EDT) us Historical Provider MD ZAMUDIO ECHO PROCEDURES Final Result documented in this encounter Visit Diagnoses Not on filedocumented in this encounter Care Teams Atg Architect Relationship Specialty Start Date End Date Sherice John MD 73 [place] [address] PCP - General Internal Medicine 08/08/22 documented as of this encounter
--- OUTSIDE RECORDS SUMMARY | 2025-06-22 14:12 | XMS_ITS | Encounter Summary ---
Author Organization [employer] Address 75 [facility] 7t [place] [address] Care Team Providers Care Cotton Bag Sewer Name Role Phone Sherice John MD Primary Care Provider [phone] Reason for Visit * Reason Onset Date Comments Rx needs clairification 04/22/2024 Gabapent in Rx needs clarification Encounter Details Date Type Department Care Team (Late st Contact Info) Description 04/22/2024 Refill [address] [facility] MED[facility] [address] [place] [address] Sherice John MD 73 [place] [address] Primary insomnia Social History Tobacco Use Types [...] Description 08/04/2025 9:30 AM EST Office Visit [facility] MED[facility] [address] [place] [address] Sherice John MD 73 [place] [address] documented as of this encounter Visit Diagnoses Diagnosis Primary insomnia Persistent disorder of initiating or maintaining sleep documented in this encounter Care Teams Cotton Bag Sewer Relationship Specialty Start Date End Date Sherice John MD 73 [place] [address] PCP - General Internal Medicine 08/08/22 documented as of this encounter
--- OUTSIDE RECORDS SUMMARY | 2025-06-22 14:12 | XMS_ITS | Encounter Summary ---
Author Organization [employer] Address 75 [facility] 7t [place] [address] Care Team Providers Care Contract Technical Writer Name Role Phone Sherice John MD Primary Care Provider [phone] Encounter Details Date Type Department Care Team (Late st Contact Info) Description 01/07/2024 Orders Only [facility] [address] [place] [address] Sherice John MD 73 [place] [address] Social History Tobacco Use Types Packs/Day Years [...] Description 08/04/2025 9:30 AM EST Office Visit [facility] MEDICAL 73 [place] [address] Sherice John MD [address] [place] [address] documented as of this encounter Procedures Procedure [...] on filedocumented in this encounter Care Teams Contract Technical Writer Relationship Specialty Start Date End Date Sherice John MD [address] [place] [address] PCP - General Internal Medicine 08/08/22 documented as of this encounter
--- OUTSIDE RECORDS SUMMARY | 2025-06-22 14:12 | XMS_ITS | Clinical Summary ---
Author Organization [facility] Address [address] [place] [address] Care Team Providers Care President Finance Company Name Role Phone Sherice John MD Primary Care Provider [phone] Allergies Active Allergy Reactions Criticality Noted Date [...] Insurance MEDICARE PART A & B [facility] Care Teams President Finance Company Relationship Specialty Start Date End Date Sherice John MD [address] [place] [address] PCP - General 12/12/18
--- OUTSIDE RECORDS SUMMARY | 2025-06-22 14:12 | XMS_ITS | Encounter Summary ---
Author Organization [employer] Address 75 [facility] 7t [place] [address] Care Team Providers Care Tire Servicer Name Role Phone Sherice John MD Primary Care Provider [phone] Encounter Details Date Type Department Care Team (Late st Contact Info) Description 12/07/2023 Orders Only [facility] [address] [place] [address] Sherice John MD 73 [place] [address] Social History Tobacco Use Types Packs/Day Years [...] 9:30 AM EST Office Visit [facility] MEDICAL 73 [place] [address] Sherice John MD [address] [place] [address] documented as of this encounter Procedures Procedure [...] filedocumented in this encounter Care Teams Tire Servicer Relationship Specialty Start Date End Date Sherice John MD [address] [place] [address] PCP - General Internal Medicine 08/08/22 documented as of this encounter
--- OUTSIDE RECORDS SUMMARY | 2025-06-22 14:12 | XMS_ITS | Encounter Summary ---
Author Organization [employer] Address 75 [facility] 7t [place] [address] Care Team Providers Care Telephone Supervisor Name Role Phone Sherice John MD Primary Care Provider [phone] Encounter Details Date Type Department Care Team (Late st Contact Info) Description 05/14/2024 Orders Only [facility] [address] [place] [address] Sherice John MD 73 [place] [address] Social History Tobacco Use Types Packs/Day Years [...] 9:30 AM EST Office Visit [facility] MED[facility] 73 [place] [address] Sherice John MD [address] [address] documented as of this encounter Procedures Procedure [...] on filedocumented in this encounter Care Teams Telephone Supervisor Relationship Specialty Start Date End Date Sherice John MD [address] [place] [address] PCP - General Internal Medicine 08/08/22 documented as of this encounter
--- OUTSIDE RECORDS SUMMARY | 2025-06-22 14:12 | XMS_ITS | Encounter Summary ---
Author Organization [employer] Address 75 [facility] 7t [place] [address] Care Team Providers Care Reproductive Healthcare Assistant Name Role Phone Sherice John MD Primary Care Provider [phone] Encounter Details Date Type Department Care Team (Late st Contact Info) Description 12/19/2023 Orders Only [facility] 58 [place] [address] Sherice John MD 73 [place] [address] Social History Tobacco Use Types Packs/Day Years [...] Description 08/04/2025 9:30 AM EST Office Visit [facility] MEDICAL 73 [place] [address] Sherice John MD [address] [place] [address] documented as of this encounter Procedures Procedure [...] on filedocumented in this encounter Care Teams Reproductive Healthcare Assistant Relationship Specialty Start Date End Date Sherice John MD [address] [place] [address] PCP - General Internal Medicine 08/08/22 documented as of this encounter
--- OUTSIDE RECORDS SUMMARY | 2025-06-22 14:12 | XMS_ITS | Encounter Summary ---
Author Organization [employer] Address 75 [facility] 7t [place] [address] Care Team Providers Care Regional Program Manager Name Role Phone Sherice John MD Primary Care Provider [phone] Encounter Details Date Type Department Care Team (Late st Contact Info) Description 12/22/2024 Orders Only [facility] [address] [place] [address] Sherice John MD 73 [place] [address] Social History Tobacco Use Types Packs/Day Years [...] 08/04/2025 9:30 AM EST Office Visit [facility] MEDICAL 73 [place] [address] Sherice John MD [address] [place] [address] documented as of this encounter Procedures Procedure [...] on filedocumented in this encounter Care Teams Regional Program Manager Relationship Specialty Start Date End Date Sherice John MD [address] [place] [address] PCP - General Internal Medicine 08/08/22 documented as of this encounter
--- OUTSIDE RECORDS SUMMARY | 2025-06-22 14:12 | XMS_ITS | Encounter Summary ---
Author Organization [facility] Address [address] [place] [address] [address] [place] [address] Phone Care Team Providers Care Claim Clinician Name Role Phone Sherice John MD Primary Care Provider Deya Sotelo MD Unavailable [phone] Joni Deleon MD Unavailable Mikal Jones MD Unavailable [phone] Lulú Vizcaino [facility] Unavailable [phone] Encounter Details Date Type Department Care Team (Late st Contact Info) Description 09/26/2023 Procedure Pass [facility] [address] [facility], 5th Floor, [address] [place] [address] Social History Tobacco Use Types Packs/Day Years [...] 1:20 PM EST Office Visit [facility] [address] [place] [address] Rogelio Torrez [address] [address] [email or web address] 11/25/2025 1:15 PM EDT Appointment [facility], [address] [address] Rogelio Torrez [address] [address] [email or web address] 12/10/2025 10:40 AM EDT Blood Draw [facility] Phleb [address] [address] Lulú Vizcaino MBBS [address] [place] [address] [email or web address] 12/10/2025 11:40 AM EDT Office Visit [facility] at [address] [address] Lulú Vizcaino MBBS [address] [place] [address] [email or web address] 03/03/2026 8:30 AM EDT Telemedicine [facility] Cardiac Arrhythmia Service [address] [facility], 5th Floor, [address] [place] [address] Angel Domínguez MD [address] [place], [place] [address] [place] [address] [email or web address] documented as of this encounter Visit Diagnoses Not on filedocumented in this encounter Care Teams Claim Clinician Relationship Specialty Start Date End Date Sherice John MD 73 [place] [address] [email or web address] PCP - General Internal Medicine 03/08/18 Deya Sotelo MD [address] [address] [email or web address] Primary Oncologist Hematology and Oncology 11/27/2211/18 Joni Deleon MD [address] [place] [address] [place] [address] Pulmonary Disease 07/18/23 Mikal Jones MD 2 [facility] [address] [place] [address] Cardiology 07/23/23 Lulú Vizcaino MBBS 2 [facility] [address] [place] [address] [email or web address] Primary Oncologist Medical Oncology 11/29/23 documented as of this encounter Additional Source Comments The information contained in this document represents components of the legal health record. It is not the complete legal health record.[facility]
--- OUTSIDE RECORDS SUMMARY | 2025-06-22 14:12 | XMS_ITS | Encounter Summary ---
Author Organization [facility] Address [address] [place] [address] Phone Care Team Providers Care Steel Pourer Helper Name Role Phone Sherice John MD Primary Care Provider Deya Sotelo MD Unavailable [phone] Joni Deleon MD Unavailable Mikal Jones MD Unavailable Lulú Vizcaino Unavailable [phone] Encounter Details Date Type Department Care Team (Late st Contact Info) Description 12/07/2021 Procedure Pass [facility], [address] [address] Social History Tobacco Use Types Packs/Day Years [...] 1:20 PM EST Office Visit [facility] [address] [place] [address] Rogelio Torrez [address] [address] [email or web address] 11/25/2025 1:15 PM EDT Appointment [facility], Bone Density - [address] [address] Rogelio Torrez [address] [address] [email or web address] 12/10/2025 10:40 AM EDT Blood Draw [facility] Phleb [address] [address] Lulú Vizcaino MBBS [address] [place] [address] [email or web address] 12/10/2025 11:40 AM EDT Office Visit [facility] at [address] [address] Lulú Vizcaino MBBS [address] [place] [address] [email or web address] 03/03/2026 8:30 AM EDT Telemedicine [facility]hythmia Service 32 [facility], 5th Floor, [address] [place] [address] Angel Domínguez MD 55 [facility] [address] [place] [address] [email or web address] documented as of this encounter Visit Diagnoses Not on filedocumented in this encounter Additional Health Concerns Infection Onset Date Last Indicated Resolved Time CoV-Risk 07/04/2022 07/04/2022 07/15/2022 4:44 AM EST CoV-Risk 10/12/2022 10/12/2022 10/23/2022 1:22 AM EST CoV-Risk 10/25/2022 10/25/2022 11/05/2022 1:22 AM EDT CoV-Risk 11/24/2022 11/24/2022 12/05/2022 1:22 AM EDT documented as of this encounter Care Teams Steel Pourer Helper Relationship Specialty Start Date End Date Sherice John MD [address] [place] [address] [email or web address] PCP - General Internal Medicine 03/08/18 Deya Sotelo MD [address] [place] [address] [email or web address] Primary Oncologist Hematology and Oncology 11/27/2211/18 Joni Deleon MD [address] [place] [address] [place] [address] Pulmonary Disease 07/18/23 Mikal Jones MD 2 [facility] [address] [place] [address] Cardiology 07/23/23 Lulú Vizcaino MBBS 2 [facility] [address] [place] [address] [email or web address] Primary Oncologist Medical Oncology 11/29/23 documented as of this encounter Additional Source Comments The information contained in this document represents components of the legal health record. It is not the complete legal health record.[facility]
--- OUTSIDE RECORDS SUMMARY | 2025-06-22 14:13 | XMS_ITS | Encounter Summary ---
Author Organization [facility] Address [address] [place] [address] [place] [address] Phone Care Team Providers Care Environmental Lead Name Role Phone Sherice John MD Primary Care Provider [phone] Joni Deleon MD Unavailable Mikal Jones MD Unavailable [phone] L[facility] Unavailable [phone] Encounter Details Date Type Department Care Team (Late st Contact Info) Description 09/24/2024 Procedure Pass [facility], [address] [address] Social History Tobacco Use Types Packs/Day Years [...] PM EST Office Visit [facility] [address] [place] [address] Rogelio Torrez [address] [address] 11/25/2025 1:15 PM EDT Appointment [facility], [address] [address] Rogelio Torrez [address] [address] 12/10/2025 10:40 AM EDT Blood Draw [facility] [address] [place] [address] Lulú Vizcaino, JORGE [address] [place] [address] [email or web address] 12/10/2025 11:40 AM EDT Office Visit [facility] at [address] [address] Lluú Vizcaino MBBS 30 [place] [address] [email or web address] 03/03/2026 8:30 AM EDT Telemedicine [facility] Cardiac Arrhythmia Service 32 [facility], 5th Floor, [address] [place] [address] Angel Domínguez MD 55 [facility] [address] [place] [address] [email or web address] documented as of this encounter Visit Diagnoses Not on filedocumented in this encounter Care Teams Environmental Lead Relationship Specialty Start Date End Date Sherice John MD [address] [place] [address] [email or web address] PCP - General Internal Medicine 03/08/18 Joni Deleon MD [address] [place] [address] [place] [address] Pulmonary Disease 07/18/23 Mikal Jones MD [address] [place] [address] [address] [place] [address] Cardiology 07/23/23 Lulú Vizcaino MBBS [address] [place] [address] [address] [place] [address] [email or web address] Primary Oncologist Medical Oncology 11/29/23 documented as of this encounter Additional Source Comments The information contained in this document represents components of the legal health record. It is not the complete legal health record.[facility]
--- OUTSIDE RECORDS SUMMARY | 2025-06-22 14:13 | XMS_ITS | Encounter Summary ---
Author Organization [employer] Address 75 [facility] 7t [place] [address] Care Team Providers Care Counterintelligence Agent Name Role Phone Sherice John MD Primary Care Provider [phone] Encounter Details Date Type Department Care Team (Late st Contact Info) Description 07/31/2023 Orders Only [facility] [address] [place] [address] Sherice John MD 73 [place] [address] Social History Tobacco Use Types Packs/Day Years [...] Description 08/04/2025 9:30 AM EST Office Visit [facility] MEDICAL 73 [place] [address] Sherice John MD 73 [place] [address] documented as of this encounter Procedures Procedure Name Priority Date/Time Associated Diagnosis Comments TSH Routine 07/30/2023 documented in this encounter Results * TSH (07/30/2023) Blood Venous blood specimen / Unknown us Sherice John MD LAB BLOOD ORDERABLES Edited Resu lt - Final documented in this encounter Visit Diagnoses Not on filedocumented in this encounter Care Teams Counterintelligence Agent Relationship Specialty Start Date End Date Sherice John MD [address] [place] [address] PCP - General Internal Medicine 08/08/22 documented as of this encounter
--- OUTSIDE RECORDS SUMMARY | 2025-06-22 14:13 | XMS_ITS | Clinical Summary ---
Author Organization [facility] Address [address] [place] [address] Phone Care Team Providers Care It Operations Specialist Name Role Phone Sherice John MD Primary Care Provider [phone] Allergies Active Allergy Reactions Criticality Noted Date [...] Continue diltiazem and mexiletine. Appreciate management from [facility] electrophysiology. Seasonal allergies 11/07/2022 Moderate persistent [...] defer management of this issue to her ship/rec/doc control. Fortunately her dyspnea on exertion has been [...] KNEE REPLACE KIDNEY STONE SURGERY 01/2017 PROCEDURE: MI NEPHROLITHOTOMY REMOVAL CALCULUS; COMMENT: Ureteroscopy/stone removal /stent [...] 02/07/2019 DX:Pulmonary hypertension (H CC); COMMENT: 11/22/18 CATI: Mild Primary insomnia DX:Primary inso mnia Seasonal [...] 12/01/2024 1:32 PM EDT Plan of Treatment Health Maintenance Due [...] AM EST Performed at: 01 - [facility] [address] [id number] Plodding Machine Operator: Trudy Zamudio MD, Phone: [phone] us Reshma Valderrama SLAB DEPILER OPERATOR LAB BLOOD ORDERABLES Final R esult [facility] 1 from Last 3 Months or Most Recently Relevant to Health Maintenance Insurance MEDICARE [employer] Care Teams It Operations Specialist Relationship Specialty Start Date End Date Sherice John MD [address] [place] [address] PCP - General Internal Medicine 01/10/19
--- OUTSIDE RECORDS SUMMARY | 2025-06-22 14:13 | XMS_ITS | Clinical Summary ---
Author Organization [facility] Address [address] [place] [address] Phone Care Team Providers Care Birthing Nurse Name Role Phone Sherice Paulino MD Primary Care Provider Joni Deleon MD Unavailable Mikal Jones MD Unavailable [phone] Lulú Vizcaino [facility] Unavailable Allergies Active Allergy Reactions Criticality Noted Date Comments Hydromorphone GI Upset,Mental Status Change 11/06/2019 Other reaction(s): hives and nausea pt states she has had hives and nausea after reciveing this medication in the past Patient has confusion on this medication. Mold 03/25/2019 Sulfa (Sulfonamide Antibiotics) Rash Low 02/07/2019 Other reaction(s): Flu-like symptoms Medications sertraline (ZOLOFT) 100 MG tablet Take 100 [...] tablet by mouth daily. Active ID-denosumab <PROLIA> (65-298) 60 mg/mL subcutaneous injection Inject under the [...] 200 MG capsule PRN 04/24/20 24 Active JARDIANCE 10 mg tablet 09/05/19 25 Active traZODone (DESYREL) 50 MG tablet TAKE 1 TABLET ORALLY BEDTIME NEEDED FOR SLEEP FOR 30 DAYS Active ELIQUIS 5 mg tablet Take 1 tablet by mouth 2 (two) times a day. Active dilTIAZem (CARDIZEM CD) 120 MG 24 hr capsuleIndicatio ns:Palpitations TAKE 1 CAPSULE BY MOUTH EVERY DAY 90 capsule 3 03/27/20 25 Active mexiletine (MEXITIL) 150 MG capsuleIndicatio ns:PVC (premature ventricular contraction) TAKE 1 CAPSULE BY MOUTH TWICE A DAY 180 capsule 1 03/27/20 25 Active rosuvastatin (CRESTOR) 20 MG tablet Take 20 mg by mouth daily. 03/06/20 25 Active fluticasone propion-salmeter oL (ADVAIR DISKUS) [...] (03/16/2023): Psych prescriber: Rabia Gillespie; Therapist Rc Last Assessment & Plan: Doing well weaning zoloft. [...] Osteoarthritis 03/25/2019 Overview (06/01/2020): Knees Osteoporosis 03/25/2019 Assessment & Plan (05/21/2025 1:57 PM EDT): 75-year-old woman with history of osteopenia possibly diagnosed in her early 50s. She eventually progressed to osteoporosis unclear why and since I do not have these records. She has had multiple fragility fractures, including L1, L2, L3, L4, T6, T11, T12, 8th and 10th rib fractures, toe fractures, sternal fracture. She has lost at least 1.5 inches in height. Risk factors for osteoporosis include age, menopause, family history, use of proton pump inhibitors for 15 years, SSRIs for 30 years, gabapentin for 5 years, use of intra-articular corticosteroids quarterly for 2 years, and possibly history of vitamin D deficiency. FRAX score for hip fracture is 6%. She has used Prolia for approximately 6 years but missed 1 injection and developed multiple vertebral fractures but she also had aged indeterminate fractures. It seems that she was failing therapy with Prolia. She administered Prolia last in January but does not otherwise activate. So it is possible that intact PTH of checked now may be elevated since Prolia does increase PTH levels. She has history of nephrolithiasis but unclear if she has hyperparathyroidism. I will request biochemical workup for further evaluation of osteoporosis. At this point it is difficult to determine how to proceed. Possibly she will proceed on Prolia administration but if she is not doing well with Prolia ministration because she continues to fracture then it should be stopped. However there is no drug holiday with Prolia that means that she has to be placed on zoledronic acid. After 1 therapy of zoledronic acid we can consider other medication such as romosozumab which is 2 injections monthly for period of 1 year and then we can follow it up again with zoledronic acid. Romosozumab therapy can be repeated if required. This potentially may be the best therapy plan. It is unfortunate that we cannot go straight to romosozumab because discontinue of Prolia has to be followed with zoledronic acid or alendronate. It would be great if she can repeat DXA scan again by 11/24/2025. Medicare will cover yearly DXA scan if she is on therapy. So I asked her to contact the radiology department at [facility] and try to schedule a DXA scan for 11/24/2025. This may not be possible since they are 1 year behind but she should try. Restless leg syndrome 03/25/2019 Vitamin D deficiency 03/25/2019 Total knee replacement status 03/25/2019 Overview (06/01/2020): 2018 Left GERD (gastroesophageal reflux disease) 9 Mild persistent asthma 02/07/2019 JACKIE (obstructive sleep apnea) 02/07/2019 Pulmonary hypertension 02/07/2019 Overview (06/01/2020): 11/22/18 CAIT: Mild Pneumonia of left lower lobe due to infectious o rganism Encounters Date Type Department Care Team Description 06/08/2025 Telephone [facility] [address] [place] [address] Rogelio Torrez DO Results (Lab results inquiry) 05/28/2025 2:36 PM EDT - 05/28/2025 11:59 PM EDT Hospital Encounter [facility] [address] [place] [address] Rogelio Torrez, Discharge Disposition: Home or Self Care 05/28/2025 11:02 AM EDT - 05/28/2025 11:59 PM EDT Hospital Encounter [facility] [place] [address] [place] [address] Rogelio Torrez, Discharge Disposition: Home or Self Care 05/27/2025 2:36 PM EDT - 05/27/2025 11:59 PM EDT Hospital Encounter [facility] [place] [address] [place] [address] Rogelio Torrez DO Discharge Disposition: Home or Self Care 05/21/2025 1:00 PM EDT Office Visit [facility] [address] [place] [address] Rogelio Torrez, Other osteoporosis without current pathological fracture (Primary Dx) 04/28/2025 1:00 PM EDT - 04/28/2025 11:59 PM EDT Hospital Encounter [facility] [address], [address], [address] [place] [address] Angel Domínguez MD Discharge Disposition: Home or Self Care 04/27/2025 Procedure Pass [facility] [address], [address] Floor, [address] [place] [address] 04/27/2025 Orders Only [facility] Arrhythmia Service [address], [address], [address] [place] [address] Silvana Gupta, NAREN PVC (premature ventricular contraction) (Primary Dx); Palpitations 03/25/2025 Refill [facility]ia [facility] [address], [address], [address] [place] [address] Angel Domínguez MD Medication Refill from Last 3 Months Immunizations Immunization Administration [...] Patient Refused),10/22/2019(Deferred: Patient Refused),10/22/2019(Deferred: Not Available From Outgoing Inspector),07/14/2019 Pneumococcal polysaccharide PPSV23 08/24/2017 RSV Vaccine (monovalent, [...] Sign Reading Time Taken Comments Blood Pressure 138/82 05/21/2025 12:51 PM EDT Pulse 74 05/21/2025 12:51 PM EDT Temperature 36.3 C (97.4 F) [...] 1:20 PM EST Office Visit [facility] [address] [place] [address] Rogelio Torrez [address] [address] 11/25/2025 1:15 PM EDT Appointment [facility], Bone Density - [address] [address] Rogelio Torrez [address] [address] 12/10/2025 10:40 AM EDT Blood Draw [facility] [address] [place] [address] Lulú Vizcaino, JORGE [address] [place] [address] [email or web address] 12/10/2025 11:40 AM EDT Office Visit [facility] Miguel Angel [address] [place] [address] Lulú Vizcaino MBBS [address] [place] [address] [email or web address] 03/03/2026 8:30 AM EDT Telemedicine [facility] Cardiac Arrhythmia Service [address], [address], [address] [place] [address] Angel Domínguez MD [address] [facility] [address] [place] [address] [email or web address] Health Maintenance Due Date Last Done Comments DEPRESSION SCREENING 1964 HEPATITIS C SCREENING 1970 COLOGUARD 1997 FIT TEST 1997 FOBT 1997 SIGMOIDOSCOPY 1997 VIRTUAL COLONOSCOPY 1997 ZOSTER VACCINES (1 of 2) 2002 INFLUENZA VACCINE (#1) 2025 , 05/18/2023, 06/27/2022, Additional history exists COVID-19 VACCINE ( season) 2025 07/25/2024, 12/04/2023, 05/18/2023, Additional history exists BLOOD PRESSURE 11/19/2025 05/21/2025 MAMMOGRAM 12/31/2025 01/01/2024, 06/0 10/2021, 01/20/2022, Additional history exists CREATININE LEVEL 05/28/2026 05/28/2025, 04/2025, 02/10/2025, Additional history exists POTASSIUM LEVEL 05/28/2026 05/28/2025, 01/19, 12/06/2023, Additional history exists COLONOSCOPY 05/06/2034 05/06/2024, 05/05/2024 COLORECTAL CANCER SCREENING 05/06/2034 Adult Td,Tdap Booster 01/29/2035 01/29/2025, 012 PNEUMOCOCCAL VACCINES (50+ years) Completed 07/14/2019, 08/24/2017 RSV VACCINE Completed 05/21/2024 OSTEOPOROSIS SCREENING INITIAL (ONE-TIME) Completed 11/24/2024 SMOKING STATUS SCREENING (Once After 26 Yrs) Completed 05/21/2025 HEPATITIS A VACCINES Aged Out No long [...] this topic Medical Devices Implanted Type Area Outgoing Inspector Device Identifier Shelf Expiration Date Model / Serial / Lot Prosthetic Joint Prosthetic Joint Bilatera l: Knee Procedures Procedure Name Priority Date/Time Associated Diagnosis Comments CORTISOL, SALIVA Routine 05/28/2025 11:5 0 PM EDT Other osteoporosis without current pathological fracture 25-OH VITAMIN D Routine 05/28/2025 11:14 AM EDT Other osteoporosis without current pathological fracture COMPREHENSIVE METABOLIC PANEL (CMP) Routine 05/28/2025 11:14 AM EDT Other osteoporosis without current pathological fracture PARATHYROID HORMONE (PTH) Routine 05/28/2025 11:14 AM EDT Other osteoporosis without current pathological fracture TSH WITH REFLEX Routine 05/28/2025 11:14 AM EDT Other osteoporosis without current pathological fracture HOMOCYSTEINE Routine 05/28/2025 11:14 AM EDT Other osteoporosis without current pathological fracture TRYPTASE Routine 05/28/2025 11:14 AM EDT Other osteoporosis without current pathological fracture PHOSPHORUS Routine 05/28/2025 11:14 AM EDT Other osteoporosis without current pathological fracture MAGNESIUM Routine 05/28/2025 11:14 AM EDT Other osteoporosis without current pathological fracture TIMED URINE DATA Routine 05/28/2025 8:00 AM EDT Phosphorus, 24 hr urine Routine 05/28/2025 8:00 AM EDT Other osteoporosis without current pathological fracture CALCIUM, 24 HOUR URINE Routine 05/28/2025 8:00 AM EDT Other osteoporosis without current pathological fracture CREATININE, 24 HR URINE Routine 05/28/2025 8:00 AM EDT Other osteoporosis without current pathological fracture CORTISOL, SALIVA Routine 05/27/2025 11:0 0 PM EDT Other osteoporosis without current pathological fracture PATCH MONITOR UP TO 7 DAYS Routine 05/18/2025 11:57 AM EDT PVC (premature ventricular contraction) Palpitations BD DXA AXIAL (SPINE) WITH HIP Routine 11/24/2024 2:28 PM EDT Osteoporosis with current pathological fracture, unspecified osteoporosis type, sequela ENDOSCOPY, COLON 05/06/2024 11:1 4 AM EDT BI MAMMOGRAM SCREENING WITH TOMOSYNTHESIS WITH CAD (BILATERAL) Routine 01/01/2024 11:41 AM EDT Breast screening from Last 3 Months or Most Recently Relevant to Health Maintenance Results * Cortisol, saliva (05/28/2025 11:50 PM EDT) Only the most recent of2 resultswithin the time period is included. CORTISOL,SALIVA Test component not applicable or not reported. ng/dL [facility] MED[facility]PATH [address] AM CORTISOL Test component not applicable or not reported. ng/dL [facility]PATH [address] PM CORTISOL Test component not applicable or not reported. ng/dL [facility]PATH [address] MIDNIGHT CORTISOL <50 <100 ng/dL [facility] [address] Comment: (NOTE) ADDITIONAL INFORMATION This test was developed and its performance characteristics determined by [facility] in a manner consistent with CLIA requirements. This test has not been cleared or approved by the U.S. Food and Drug Administration. Other (Oral) 05/28/2025 11:5 0 PM EDT 05/29/2025 3:26 PM EDT us Rogelio Torrez DO BODY FLUIDS AND STOOLS ORDERABLE S Final Result [facility] MED[facility] [address] [place] [address] * Comprehensive metabolic panel (05/28/2025 11:14 AM EDT) SODIUM 142 133 - 146 mmol/L [facility] POTASSIUM 4.0 3.3 - 5.1 mmol/L [facility] CHLORIDE 105 96 - 108 mmol/L [facility] CO2 27 21 - 35 mmol/L [facility] BUN 18 6 - 19 mg/dL [facility] CREATININE 0.70 0.5 - 1.5 mg/dL [facility] GLUCOSE 96 70 - 99 mg/dL [facility] ALBUMIN 4.3 3.9 - 4.8 g/dL [facility] TOTAL PROTEIN 6.9 6.5 - 8.0 g/dL [facility] CALCIUM 8.7 8.4 - 10.3 mg/dL [facility] ALKALINE PHOSPHATASE 54 39 - 117 U/L [facility] TOTAL BILIRUBIN 0.6 0.0 - 1.2 mg/dL [facility] AST 18 0 - 37 U/L [facility] ALT 15 0 - 40 U/L [facility] GLOBULIN 2.6 1 - 4.8 g/dL [facility] EGFR 91 >59 mL/min/1.7 3m2 [facility] Comment:Estimated glomerular filtration rate calculated using the CKD-EPI refit equation. ANION GAP 14 10 - 20 mmol/L [facility] Blood 05/28/2025 11:1 4 AM EDT 05/28/2025 11:26 AM EDT Rogelio Torrez [facility] BLOOD BKR ORDERABLES Final R esult Performing Organization Address City/[facility]/ZIP Co de Phone Number [address] [address] * TSH with reflex (05/28/2025 11:14 AM EDT) TSH 1.81 0.27 - 4.20 uIU/mL [facility] Blood 05/28/2025 11:1 4 AM EDT 05/28/2025 11:26 AM EDT [facility]LES Final R esult Performing Organization Address [facility] Co de Phone Number [address] [address] * Tryptase (05/28/2025 11:14 AM EDT) TRYPTASE 3.1 <11.5 ng/mL [facility] [place] Blood 05/28/2025 11:1 4 AM EDT 05/28/2025 11:27 AM EDT Rogelio Torrez LAB BLOOD ORDERABLES Final Resul t Performing Organization Address City/[facility] Co de Phone Number [facility] MED/[facility] [address] [place] [address] * 25-OH vitamin D (05/28/2025 11:14 AM EDT) 25 OH VIT D (TOTAL) 42 30 - 60 ng/mL [facility] Blood 05/28/2025 11:1 4 AM EDT 05/28/2025 11:26 AM EDT Rogelio Torrez DO LAB BLOOD BKR ORDERABLES Final R esult [address] [address] * Phosphorus (05/28/2025 11:14 AM EDT) PHOSPHORUS 2.9 2.7 - 4.5 mg/dL [facility] Blood 05/28/2025 11:1 4 AM EDT 05/28/2025 11:26 AM EDT us Rogelio Torrez DO LAB BLOOD BKR ORDERABLES Final R esult Performing Organization Address [facility] Co de Phone Number [address] [address] * (ABNORMAL) Parathyroid hormone (PTH) (05/28/2025 11:14 AM EDT) PARATHYROID HORMONE 124(H) 15 - 65 pg/mL [facility] Blood 05/28/2025 11:1 4 AM EDT 05/28/2025 11:27 AM EDT us Rogelio Torrez DO LAB BLOOD BKR ORDERABLES Final R esult Performing Organization Address [facility]/ZIP Co de Phone Number [address] [address] * Magnesium (05/28/2025 11:14 AM EDT) MAGNESIUM 2.3 1.6 - 2.6 mg/dL [facility] Blood 05/28/2025 11:1 4 AM EDT 05/28/2025 11:26 AM EDT us Rogelio Torrez DO LAB BLOOD BKR ORDERABLES Final R esult Performing Organization Address City/[facility]/ZIP Co de Phone Number [address] [address] * Homocysteine (05/28/2025 11:14 AM EDT) HOMOCYSTEINE, TOTAL 10.6 0 - 14.2 umol/L [facility] Blood 05/28/2025 11:1 4 AM EDT 05/28/2025 11:26 AM EDT us Rogelio Torrez DO LAB BLOOD BKR ORDERABLES Final R esult Performing Organization Address City/[facility]/ZIP Co de Phone Number [address] [address] * Timed urine data (05/28/2025 8:00 AM EDT) COLLECTION DATA 24 [facility] TOTAL VOLUME 1,550 mL [facility] 05/28/2025 8:00 AM EDT 05/28/2025 11:26 AM EDT Rogelio Torrez DO URINE ORDERABLES Final Result Performing Organization Address [facility] Co de Phone Number [address] [address] * Phosphorus, 24 hr urine (05/28/2025 8:00 AM EDT) URINE PHOSPHORUS 38.5 mg/dL [facility] PHOSPHORUS OUTPUT 596.8 400 - 1,300 mg/total output [facility] Urine (Urine) 05/28/2025 8:0 0 AM EDT 05/28/2025 11:26 AM EDT us [employer] Shan RIOS URINE ORDERABLES Final Result Performing Organization Address City/[facility] de Phone Number [address] [address] * (ABNORMAL) Calcium, 24 hour urine (05/28/2025 8:00 AM EDT) URINE CALCIUM 4.3 mg/dL [facility] CALCIUM OUTPUT 67(L) 100 - 300 mg/total output [facility] Urine (Urine) 05/28/2025 8:0 0 AM EDT 05/28/2025 11:26 AM EDT [employer] DO URINE ORDERABLES Final Result Performing Organization Address City/[facility]/ZIP Co de Phone Number [address] [address] * Creatinine, 24 hr urine (05/28/2025 8:00 AM EDT) URINE CREATININE 60 mg/dL [facility] CREATININE OUTPUT 930 600 - 1,800 mg/total output [facility] Urine (Urine) 05/28/2025 8:0 0 AM EDT 05/28/2025 11:26 AM EDT Rogelio Milan LAB URINE ORDERABLES Final Resul t Performing Organization Address [facility] de Phone Number [address] [address] * Patch Monitor up to 7 Days (05/18/2025 11:57 AM EDT) Anatomical Region Laterality Modality Heart Other Narrative 05/18/2025 12:58 PM EDT Enrollment period: 05/01/25, 03:59am to 05/08/25, 10:36pm, Analysis Time: 7 days 17 hours Predominant rhythm: Sinus. Average heart rate: 70 bpm. 58 Supraventricular Tachycardia runs occurred, the run with the fastest interval lasting 11.0 secs with a max rate of 207 bpm (avg 158 bpm); the run with the fastest interval was also the longest. Some episodes of Supraventricular Tachycardia conducted with possible aberrancy. VT: none found. Pauses: none found. AV Block: none found. AF: none found. Isolated SVEs were occasional (1.4%, [address]), SVE Couplets were rare (<1.0%, 110), and SVE Triplets were rare (<1.0%, 41). Isolated VEs were rare (<1.0%, 260), and no VE Couplets or VE Triplets were present. Patient triggered events correlated with: Sinus 58-95 bpm SVE(s) VE(s) us Angel Domínguez MD [facility] KARAN CHEN Final Result * BD DXA AXIAL (SPINE) WITH HIP (11/24/2024 2:28 PM EDT) Anatomical Region Laterality Modality Bone Density Bone Density 11/24/2024 2:16 PM EDT Impressions 11/25/2024 12:54 PM EDT Interpretation: Osteopenia. Narrative 11/25/2024 12:54 PM EDT Referred By: SHERICE PAULINO Indications: Osteoporosis Scanner: Veebox A with serial# of [id number] located at [facility] Bone Density Scan (DXA) 11/24/24 Details of [...] -2.5), or Osteoporosis (T-score <= -2.5). At [facility], T-scores are compared to peak bone density [...] Referred By: SHERICE PAULINO Indications: Osteoporosis Scanner: Veebox A with serial# of [id number] located at [facility] Bone Density Scan (DXA) 11/24/24 Details [...] -2.5), or Osteoporosis (T-score <= -2.5). At [facility], T-scores are compared to peak bone density [...] IMPRESSION: Interpretation: Osteopenia. us Sherice Paulino MD IM BD BONE DENSITY DEXA Final Result * ENDOSCOPY, COLON (05/06/2024 11:14 AM EDT) Narrative Transcriptions Michel Dailey MD - 05/06/2024 11:14 AM EDT [facility] Patient Name: Danny Benitez MD:: MICHEL DAILEY MD, , Procedure Date: 05/06/2024 11:14 AM Date of : 1950 Age: 73 Admit Type: Outpatient Gender: Female Room: [place] [address] Referring MD: Sherice Paulino MD Exam Type: [...] monitored continuously. The Olympus adult variable colonoscope [id number] #7 was introduced through the anus and advanced to the cecum, identified by appendiceal orifice andileocecal valve. The colonoscopy was performed withdifficulty due to significant looping. Successful completionof the procedure was aided by applying abdominal pressure. The patient tolerated the procedure well. The quality of the bowel preparation was excellent. The quality of the bowel preparation was evaluated using the BBPS ([place] Bowel Preparation Scale)with scores of: Right Colon [...] 11:14 AM Procedure Code(s): --- Professional --- 97228, Colonoscopy, flexible; with removal of tumor(s), polyp(s), or other lesion(s) by snare technique --- Technical --- 19826, Colonoscopy, flexible; with removal of tumor(s), polyp(s), [...] or abscess without bleeding CPT copyright 2021 [employer]. All rights reserved. The codes documented in this report are preliminary and upon hvac installer reviewmay be revised to meet current compliance requirements. Procedure Date: 05/06/2024 11:14:[address] [place] [id number] Sherice Paulino MD GI PROCEDURE ORDERABLES [...] of the results and recommendations. us Sherice Paulino MD IMG MG EXAMS Final Result from Last 3 Months or Most Recently Relevant to Health Maintenance Insurance MEDICARE PART A & B [facility] [employer]ENSION MEDICARE SUPPLEMENT MEDICARE PART A & B Member Subscriber Plan / Payer ( fective 2017-Present) Name:Mary Delgado Member ID:[id number] Relation to Subscriber:Self Name:Mary Delgado Subscriber ID:[id number] Payer ID:[id number] Group ID:Not on file Type:Medicare Address: [employer] [address] [employer] EXTENSION MEDICARE SUPPLEMENT MEDICARE PART A & B Member Subscriber Plan / Payer ( fective 2017-Present) Name:Mary Delgado Member ID:[id number] Relation to Subscriber:Self Name:Mary Delgado Subscriber ID:[id number] Payer ID:[id number] Group ID:Not on file Type:Medicare Address: [employer] [address] [place] [address] [employer] EXTENSION MEDICARE SUPPLEMENT MEDICARE PART A & B Member Subscriber Plan / Payer ( fective 2017-Present) Name:Mary Delgado Member ID:[id number] Relation to Subscriber:Self Name:Mary Delgado Subscriber ID:[id number] Payer ID:[id number] Group ID:Not on file Type:Medicare Address: [employer] [address] [place] [address] [employer] MEDICARE SUPPLEMENT MEDICARE PART A & B Member Subscriber Plan / Payer ( fective 2017-Present) Name:Mary Delgado Member ID:[id number] Relation to Subscriber:Self Name:Mary Delgado Subscriber ID:[id number] Payer ID:[id number] Group ID:Not on file Type:Medicare Address: [employer] [address] [place] [phone] [employer] MEDICARE SUPPLEMENT MEDICARE PART A & B Member Subscriber Plan / Payer ( fective 2017-Present) Name:Mary Delgado Member ID:[id number] Relation to Subscriber:Self Name:Mary Delgado Subscriber ID:[id number] Payer ID:[id number] Group ID:Not on file Type:Medicare Address: [employer] [address] [place] [phone] [employer] MEDICARE SUPPLEMENT MEDICARE PART A & B Member Subscriber Plan / Payer ( fective 2017-Present) Name:Mary Delgado Member ID:[id number] Relation to Subscriber:Self Name:Mary Delgado Subscriber ID:[id number] Payer ID:[id number] Group ID:Not on file Type:Medicare Address: [employer] [address] [place] [phone] [employer] MEDICARE SUPPLEMENT MEDICARE PART A & B Member Subscriber Plan / Payer ( fective 2017-Present) Name:Mary Delgado Member ID:[id number] Relation to Subscriber:Self Name:Mary Delgado Subscriber ID:[id number] Payer ID:[id number] Group ID:Not on file Type:Medicare Address: [employer] [address] [place] [phone] [facility] EX[employer]ION MEDICARE SUPPLEMENT MEDICARE PART A & B Member Subscriber Plan / Payer ( fective 2017-Present) Name:Mary Delgado Member ID:[id number] Relation to Subscriber:Self Name:Mary Delgado Subscriber ID:[id number] Payer ID:[id number] Group ID:Not on file Type:Medicare Address: [employer] [address] [place] [phone] [employer] [facility] [facility] MEDICARE SUPPLEMENT DEVENDRA DALE [address] Advance Directives For more information, please contact: [phone] (9AM - 5PM [place], Sunday-Sunday) * Full Code (Presumed) (Latest Code Status on File) Date Activated Date Inactivated Comments 10/22/2019 5:26 AM 10/24/2019 6:33 PM * Full Code (Presumed) Date Activated Date Inactivated Comments 10/22/2019 12:40 AM 10/22/2019 5:26 AM Care Teams Birthing Nurse Relationship Specialty Start Date End Date Sherice Paulino MD [address] [place] [address] [email or web address] PCP - General Internal Medicine 03/08/18 Joni Deleon MD [address] [place] [address] [place] [address] Pulmonary Disease 07/18/23 Mikal Jones MD [address] [place] [address] [place] [address] Cardiology 07/23/23 Lulú Vizcaino MBBS 2 [facility] [address] [place] [address] [email or web address] Primary Oncologist Medical Oncology 11/29/23 Additional Source Comments The information contained in this document represents components of the legal health record. It is not the complete legal health record.[facility]
--- OUTSIDE RECORDS SUMMARY | 2025-06-22 14:13 | XMS_ITS | Encounter Summary ---
Author Organization [facility] Address [address] [place] [address] Phone Care Team Providers Care Claims Service Adjustor Name Role Phone Sherice John MD Primary Care Provider [phone] Deya Sotelo MD Unavailable Joni Deleon MD Unavailable Mikal Jones MD Unavailable Lulú Vizcaino [facility] Unavailable [phone] Encounter Details Date Type Department Care Team (Latest Contact Info) Description 10/25/2023 Transcribe Orders Virtual Department 30 [place] [address] Sherice John MD [address] [place] [address] [email or web address] Breast [...] 1:20 PM EST Office Visit [facility] [address] [place] [address] Rogelio Torrez [address] [address] 11/25/2025 1:15 PM EDT Appointment [facility], Bone [address] [address] Rogelio Torrez [address] [address] [email or web address] 12/10/2025 10:40 AM EDT Blood Draw [facility] Phleb [address] [address] Lulú Vizcaino MBBS [address] [place] [address] [email or web address] 12/10/2025 11:40 AM EDT Office Visit [facility] at [address] [address] Lulú Vizcaino MBBS [address] [place] [address] [email or web address] 03/03/2026 8:30 AM EDT Telemedicine [facility] [place] Cardiac Arrhythmia Service [address] [facility], 5th Floor, [address] [place] [address] Angel Domínguez MD [address] [facility] [address] [place] [address] [email or web address] documented as of this [...] notified of the results and recommendations. Sherice John MD [facility] Final Result documented in this encounter Visit Diagnoses Diagnosis Breast screening- Primary Breast screening, unspecified Breast screening Breast screening, unspecified documented in this encounter Care Teams Claims Service Adjustor Relationship Specialty Start Date End Date Sherice John MD [address] [place] [address] [email or web address] PCP - General Internal Medicine 03/08/18 Deya Sotelo MD [address] [address] [email or web address] Primary Oncologist Hematology and Oncology 11/27/2211/18 Joni Deleon MD [address] [place] [address] [place] [address] Pulmonary Disease 07/18/23 Mikal Jones MD [address] [place] [address] Center [address] [place] [address] Cardiology 07/23/23 Lulú Vizcaino MBBS 2 [facility] Center [address] [place] [address] [email or web address] Primary Oncologist Medical Oncology 11/29/23 documented as of this encounter Additional Source Comments The information contained in this document represents components of the legal health record. It is not the complete legal health record.[facility]
--- OUTSIDE RECORDS SUMMARY | 2025-06-22 14:13 | XMS_ITS | Encounter Summary ---
Author Organization [employer] [employer] Address 75 [facility] 7t [place] [address] Care Team Providers Care Cat Tender Name Role Phone Sherice John MD Primary Care Provider [phone] Encounter Details Date Type Department Care Team (Late st Contact Info) Description 08/25/2023 Orders Only [facility] 58 [place] [address] Sherice John MD [address] [place] [address] Social History Tobacco Use Types Packs/Day Years [...] Description 08/04/2025 9:30 AM EST Office Visit [facility] MEDICAL 73 [place] [address] Sherice John MD [address] [place] [address] documented as of this encounter Procedures Procedure Name Priority Date/Time Associated Diagnosis Comments XR CHEST 2 VIEWS Routine 08/17/2023 documented in this encounter Results * XR Chest 2 Views (08/17/2023) Anatomical Region Laterality Modality Chest Radiographic Tami ging Sherice John MD IMG XR PROCEDURES Edited Result - Final documented in this encounter Visit Diagnoses Not on filedocumented in this encounter Care Teams Cat Tender Relationship Specialty Start Date End Date Sherice John MD [address] [place] [address] PCP - General Internal Medicine 08/08/22 documented as of this encounter
--- OUTSIDE RECORDS SUMMARY | 2025-06-22 14:13 | XMS_ITS | Data Portability ---
Author Organization [place] [facility], Allergy Address [address] [address] Care Team Providers Care Economic Analyst Name Role Phone CARLOS CHILDERS Primary Care Provider [phone] Assessment Encounter Date Assessment Date Assessment LastModified [...] Details Recorded Time Posterio r rhinorrh ea 54717696 Active 2017 Postnasa l drip; Note: Date Diagnose d: 12/25/2017 2:12 PM (R09.82) Not Available [facility] 4 02:45:11 Allergic rhinitis 82752585 Active 2017 Allergic rhinitis , unspecif ied; Note: Date Diagnose d: 12/25/2017 2:12 PM (J30.9) Not Available [facility] 4 02:45:10 Headache 07859800 Active 2017 Headache ; Note: Date Diagnose d: 12/25/2017 2:12 PM (R51) Not Available [facility] 4 02:45:09 Cough 52988684 Active 2018 Cough; Note: Date Diagnose d: 09/24/2018 11:18 AM (R05) Not Available [facility] 4 02:45:09 Impacted cerumen of bilatera l ears 83571971528 [address] Active 2018 Impacted cerumen, bilatera l; Note: Date Diagnose d: 09/24/2018 11:18 AM (H61.23) Not Available [facility] 4 02:45:10 Otalgia of right ear 5219735266 Active 2018 Otalgia, right ear; Note: Date Diagnose d: 09/24/2018 12:52 PM (H92.01) Not Available [facility] 4 02:45:14 Cough variant asthma 523508173 Active 2018 Cough variant asthma; Note: Date Diagnose d: 11/19/2018 11:34 AM (J45.991 ) Not Available [facility] 4 02:45:09 Obstruct demarco sleep apnea syndrome 05973036 Active 2018 Obstruct demarco sleep apnea (adult) (pediatr ic); Note: Date Diagnose d: 9 11:20 AM (G47.33) Not Available [facility] 4 02:45:14 Acute serous otitis media of right ear 07277060795 44747 Completed 201903/21/2024 Acute serous otitis media, right ear; Note: Date Diagnose d: 0 2:34 PM (H65.01) Not Available [facility] 4 02:45:08 Sensorin eural hearing loss of bilatera l ears 625519309 Active 2019 Sensorin eural hearing loss, bilatera l; Note: Date Diagnose d: 0 2:40 PM (H90.3) Not Available [facility] 4 02:45:12 Disorder of right Eustachi an tube 75467001201 24378 Active 2019 Other specifie d disorder s of Eustachi an tube, right ear; Note: Date Diagnose d: 04/20/2020 4:01 PM (H69.81) Not Available [facility] 4 02:45:15 Impacted cerumen in right ear 01121147518 74780 Active 2022 Impacted cerumen, right ear; Note: Date Diagnose d: 3 11:11 AM (H61.21) Not Available [facility] 4 02:45:12 Itching of skin 596796078 Active 2023 Nata garcia [place] - [facility] 4 09:46:48 Problem Notes None recorded. Medical Equipment None Reported. Allergies Allergen ID Allergen Name Allergen Category Reaction Reaction Severity Criticality Documentation Date Start Date Code Code System Note Provider Name and Address Organization Details Recorded Time 43169 Substance with sulfonami de structure and antibacte rial mechanism of action (substanc e) medicatio n other Not available Not available 01/01/2024 78144 8003 SNOMED React ion: unkno wn, unspe cifie d;; Not Available [facility] 4 00:49:45 Medications Name Sig Start Date [...] mg tablet 02/02 completed Medicati on ID: [id number] D uration Value: 30 Brand Name: amlodipi [...] 5 mg tablet active Medicati on ID: [id number] B rand Name: bisoprol ol fumarate Send Method: E-Prescr ibed Sub s Allowed: subs OK Medic ationGen ericName : bisoprol ol fumarate Not Available Not Available Not Available alprazola m 0.5 mg tablet TAKE 1/2 TO 1 TABLET DAILY NEEDED FOR ANXIETY active Not Available Not Available No t Available gabapenti n 800 mg tablet 02/02 completed Medicati on ID: 127761 D uration Value: 30 Brand Name: gabapent in Send Method: E-Prescr ibed Sub s Allowed: subs [place] Speci al Instruct ion: take 1 tablet by mouth at bedtime Medicati onGeneri cName: gabapent in Not Available Not Available Not Available meclizine 25 mg tablet 11/13 completed Medicati on ID: [id number] B rand Name: meclizin e Send Method: [...] mg tablet 02/02 completed Medicati on ID: [id number] D uration Value: 30 Brand Name: zolpidem [...] 24 hr 2020 active Medicati on ID: 154834 B rand Name: metoprol ol succinat e Send Method: E-Prescr ibed Sub s Allowed: subs [place] Medic ationGen ericName : metoprol ol succinat e Not Available Not Available Not Available lotepredn ol etabonate 0.5 % eye drops,[facility] ADMIN[facility] ER 1 DROP INTO BOTH EYES 4 TIMES DAILY FOR 14 DAYS. active Not Available Not Available No t Available zolpidem 10 mg tablet 2020 active Medicati on ID: [id number] B rand Name: zolpidem Send Method: E-Prescr ibed Sub s Allowed: subs [place] Medic ationGen ericName : zolpidem Not Available Not Available Not Available fluticaso ne propionat e 50 mcg/actua tion nasal spray,david pension 2020 active Medicati on ID: 591382 B rand Name: fluticas one propiona te [...] sustained -release 11/13 completed Medicati on ID: [id number] B rand Name: bupropio n HCl Send [...] aerosol inhaler 2020 active Medicati on ID: [id number] B rand Name: Flovent HFA Send Method: E-Prescr ibed Sub s Allowed: subs OK Medic ationGen ericName : Flovent HFA Not Available Not Available Not Available Flovent HFA 220 mcg/actua tion aerosol inhaler 11/13 completed Medicati on ID: [id number] B rand Name: Flovent HFA Send Method: [...] in dose pack active Medicati on ID: 459177 B rand Name: Eliquis DVT-PE Treat 30D [...] Updated DateTime 05/20/2024 162.56 cm 30 kg/m2 05881.66 g Ruperto [place] - [facility] 05/20/2024 09:37:03 Social History None recorded. Functional Status None recorded. Mental Status None recorded. Family History Nothing Reported. Medical History No medical history recorded. Gynecological HistoryNo gynecological history recorded. Obstetrics History GPAL:G 0 P 0 0 0 0 Past Encounters Encounter ID Performer Location Encounter Start Date Encounter Closed Date Diagnosis/Indication Diagnosis SNOMED-CT Code Diagnosis ICD10 Code Diagnosis IMO Codes Diagnosis Note [id number] NATA GENAO PA-C [facility] on [address] [place] [address] 05/20/2024 09:25:09 05/20/2024 09:48:11 Itching of skin [id number] L29.9 Health Concerns Section Related Observation LastModified by Organization Detai ls LastModified Time None Recorded Concern Status LastModified by Organization Details LastModified Time None Recorded Advance Directives Directive None Recorded Payers Insurance Date Sequence Insurance Name Policy Number Policy Adan Covered Member ID Adan Member ID Guarantor Name 05/20/2024 1 MEDICARE [place]: [id number] ([email or web address]) SERVICES Mary Delgado [id number] Mary Delgado 05/20/2024 2 [facility] INDEMNITY PLAN (INDEMNITY) [id number] Mary Delgado [id number] Mary Delgado Notes Date Note Type Note Provider Name and Address Organization Details Recorded Time 05/20/2024 text/html ROS as noted in the HPI 74 year old female presents today for an ear cleaning.No specific concerns today. She does have some itching at the ear canal opening. No drainage or pain. HAYDEN BEARDEN MD [address] [place] [address], [phone], [facility] 05/20/2024 10:12:08 OBGyn Episode No OBEpisode recorded.
--- OUTSIDE RECORDS SUMMARY | 2025-06-22 14:13 | XMS_ITS | Encounter Summary ---
Author Organization [employer] Address 75 [facility] 7t [place] [address] Care Team Providers Care Third Shift Lieutenant Name Role Phone Sherice John MD Primary Care Provider [phone] Encounter Details Date Type Department Care Team (Late st Contact Info) Description 10/01/2023 Orders Only [place] [facility] 58 [place] [address] Sherice John MD [address] [place] [address] Social History Tobacco Use Types Packs/Day Years [...] 08/04/2025 9:30 AM EST Office Visit [facility] MEDICAL [address] [place] [address] Sherice John MD 73 [place] [address] documented as of this encounter Procedures Procedure Name Priority Date/Time Associated Diagnosis Comments CBC WITH AUTO DIFFERENTIAL Routine 10/01/2023 documented in this encounter Results * CBC auto differential (10/01/2023) Blood Venous blood specimen / Unknown us Sherice John MD LAB BLOOD ORDERABLES Edited Resu lt - Final documented in this encounter Visit Diagnoses Not on filedocumented in this encounter Care Teams Third Shift Lieutenant Relationship Specialty Start Date End Date Sherice John MD [address] [place] [address] PCP - General Internal Medicine 08/08/22 documented as of this encounter
--- OUTSIDE RECORDS SUMMARY | 2025-06-22 14:13 | XMS_ITS | Encounter Summary ---
Author Organization [facility] Address [address] [place] [address] [place] [address] Phone Care Team Providers Care E Commerce Manager Name Role Phone Sherice John MD Primary Care Provider Joni Deleon MD Unavailable [phone] Mikal Jones MD Unavailable Lulú Vizcaino [facility] Unavailable Encounter Details Date Type Department Care Team (Latest Contact Info) Description 11/23/2024 Transcribe Orders Virtual Department 30 [place] [address] Sherice John MD 73 [place] [address] [email or web address] Acute midline low back pain without sciatica [...] 1:20 PM EST Office Visit [facility] [address] [place] [address] Rogelio Torrez [address] [address] 11/25/2025 1:15 PM EDT Appointment [facility], Bone Density - [address] [address] Rogelio Torrez DO [address] [place] [address] 12/10/2025 10:40 AM EDT Blood Draw [facility] Phleb [facility] [address] [place] [address] Lulú Vizcaino, JORGE [address] [place] [address] [email or web address] 12/10/2025 11:40 AM EDT Office Visit [facility] [place] [address] [place] [address] Lulú Vizcaino MBBS 30 [place] [address] [email or web address] 03/03/2026 8:30 AM EDT Telemedicine [facility] Cardiac Arrhythmia Service 32 [facility], 5th Floor, [address] [place] [address] Angel Domínguez MD 55 [facility] [address] [place] [address] [email or web address] Scheduled Orders Name Type Priority Associated Diagnoses Orde r Schedule XR Lumbar Spine Imaging Routine Acute midline low back pain without sciatica Expected: 11/23/2024, Expires: 11/23/2025 documented as of this encounter Visit Diagnoses Diagnosis Acute midline low back pain without sciatica- Primary documented in this encounter Care Teams E Commerce Manager Relationship Specialty Start Date End Date Sherice John MD [address] [place] [address] [email or web address] PCP - General Internal Medicine 03/08/18 Joni Deleon MD [address] [place] [address] [place] [address] Pulmonary Disease 07/18/23 Mikal Jones MD 2 [facility] [address] [place] [address] Cardiology 07/23/23 Lulú Vizcaino MBBS 2 [facility] [address] [place] [address] [email or web address] Primary Oncologist Medical Oncology 11/29/23 documented as of this encounter Additional Source Comments The information contained in this document represents components of the legal health record. It is not the complete legal health record.[facility]
--- OUTSIDE RECORDS SUMMARY | 2025-06-22 14:13 | XMS_ITS | Encounter Summary ---
Author Organization [employer] Address [address] [facility] 7t [place] [address] Care Team Providers Care Engineering Supplies Sales Name Role Phone Sherice John MD Primary Care Provider [phone] Encounter Details Date Type Department Care Team (Late st Contact Info) Description 05/04/2025 Results Follow-Up [facility] MEDICAL [address] [place] [address] Sherice John MD 73 [place] [address] [place] RENAL BI Social History Tobacco Use [...] degree (e.g., MA, MS, Luis Eduardo, MEd, CASING WRINGER OPERATOR, [place]) 02/17/2025 Comments Unknown Sex and [...] 9:30 AM EST Office Visit [facility] MEDICAL [address] [place] [address] Sherice John MD [address] [place] [address] documented as of this encounter Visit Diagnoses Not on filedocumented in this encounter Care Teams Engineering Supplies Sales Relationship Specialty Start Date End Date Sherice John MD [address] [place] [address] PCP - General Internal Medicine 08/08/22 documented as of this encounter
--- OUTSIDE RECORDS SUMMARY | 2025-06-22 14:13 | XMS_ITS | Encounter Summary ---
Author Organization [facility] Address [address] [facility] [address] [place] [address] Phone Care Team Providers Care Nail Artist Name Role Phone Sherice John MD Primary Care Provider [phone] Joni Deleon MD Unavailable Mikal Jones MD Unavailable Lulú Vizcaino [facility] Unavailable [phone] Encounter Details Date Type Department Care Team (Late st Contact Info) Description 04/27/2025 Procedure Pass [facility] 32 [facility], 5th Floor, [address] [place] [address] Social History Tobacco Use Types Packs/Day Years [...] 1:20 PM EST Office Visit [facility] [address] [place] [address] Rogelio Torrez [address] [address] 11/25/2025 1:15 PM EDT Appointment [facility], Bone Density [address] [address] Rogelio Torrez [address] [address] 12/10/2025 10:40 AM EDT Blood Draw [facility] Phleb [facility] [address] [place] [address] Lulú Vizcaino, JORGE [address] [place] [address] [email or web address] 12/10/2025 11:40 AM EDT Office Visit [facility] at [address] [address] Lulú Vizcaino MBBS 30 [place] [address] [email or web address] 03/03/2026 8:30 AM EDT Telemedicine [place] 32 [facility], 5th Floor, [address] [place] [address] Angel Domínguez MD 55 [facility] [address] [place] [address] [email or web address] documented as of this encounter Visit Diagnoses Not on filedocumented in this encounter Care Teams Nail Artist Relationship Specialty Start Date End Date Sherice John MD [address] [place] [address] [email or web address] PCP - General Internal Medicine 03/08/18 Joni Deleon MD [address] [place] [address] [place] [address] Pulmonary Disease 07/18/23 Mikal Jones MD [address] [place] [address] [place] [address] Cardiology 07/23/23 Lulú Vizcaino MBBS [address] [place] [address] [place] [address] [email or web address] Primary Oncologist Medical Oncology 11/29/23 documented as of this encounter Additional Source Comments The information contained in this document represents components of the legal health record. It is not the complete legal health record.[facility]
--- OUTSIDE RECORDS SUMMARY | 2025-06-22 14:13 | XMS_ITS | Encounter Summary ---
Author Organization [employer] Address 75 [facility] 7t [place] [address] Care Team Providers Care Trust Manager Name Role Phone Sherice John MD Primary Care Provider [phone] Encounter Details Date Type Department Care Team (Late st Contact Info) Description 05/02/2025 Orders Only [facility] [address] [place] [address] PcpGisela Unassigned Social History Tobacco Use Types [...] degree (e.g., DEVENDRA, MS, Luis Eduardo, MEd, IMMERSION METALCLEANER, MARLIN) 02/17/2025 Comments Unknown Sex and Gender [...] Description 08/04/2025 9:30 AM EST Office Visit [facility] MEDICAL [address] [place] [address] Sherice John MD [address] [place] [address] documented as of this encounter Procedures Procedure Name Priority Date/Time Associated Diagnosis Comments CT ANGIOGRAM CHEST INTERPRETATION Routine 04/14/2025 9:52 AM EDT documented in this encounter Results * CT angiogram chest interpretation (04/14/2025 9:52 AM EDT) Anatomical Region Laterality Modality Computed Tomogra phy Result [facility] IMG CT PROCEDURES Final Result documented in this encounter Visit Diagnoses Not on filedocumented in this encounter Care Teams Trust Manager Relationship Specialty Start Date End Date Sherice John MD [address] [place] [address] PCP - General Internal Medicine 08/08/22 documented as of this encounter
--- OUTSIDE RECORDS SUMMARY | 2025-06-22 14:13 | XMS_ITS | Encounter Summary ---
Author Organization [facility] Address [address] [place] [address] Phone Care Team Providers Care Placer Miner Name Role Phone Sherice John MD Primary Care Provider Deya Sotelo MD Unavailable Joni Deleon MD Unavailable Mikal Jones MD Unavailable Lulú Vizcaino Unavailable Encounter Details Date Type Department Care Team (Late st Contact Info) Description 10/15/2023 Procedure Pass [facility] Cardiac Technical Operations Specialist [address] [facility], [address] 9, [address] [place] [address] Social History Tobacco Use Types [...] 1:20 PM EST Office Visit [facility] [address] [place] [address] Rogelio Torrez [address] [address] [email or web address] 11/25/2025 1:15 PM EDT Appointment [facility], Bone [address] [address] Rogelio Torrez [address] [address] [email or web address] 12/10/2025 10:40 AM EDT Blood Draw [facility] Phleb [address] [address] Lulú Vizcaino MBBS [address] [place] [address] [email or web address] 12/10/2025 11:40 AM EDT Office Visit [facility] at [address] [address] Lulú Vizcaino MBBS [address] [place] [address] [email or web address] 03/03/2026 8:30 AM EDT Telemedicine [facility] Cardiac Arrhythmia Service [address] [facility], 5th Floor, [address] [place] [address] Angel Domínguez MD [address] [place], [place] [address] [place] [address] [email or web address] documented as of this encounter Visit Diagnoses Not on filedocumented in this encounter Care Teams Placer Miner Relationship Specialty Start Date End Date Sherice John MD [address] [place] [address] [email or web address] PCP - General Internal Medicine 03/08/18 Deya Sotelo MD [facility] [address] [address] [email or web address] Primary Oncologist Hematology and Oncology 11/27/2211/18 Joni Deleon MD [address] [place] [address] [place] [address] Pulmonary Disease 07/18/23 Mikal Jones MD [address] [facility] [address] [place] [address] Cardiology 07/23/23 Lulú Vizcaino MBBS [address] [facility] [address] [place] [address] [email or web address] Medical Oncology 11/29/23 documented as of this encounter Additional Source Comments The information contained in this document represents components of the legal health record. It is not the complete legal health record.[facility]
--- OUTSIDE RECORDS SUMMARY | 2025-06-22 14:13 | XMS_ITS | Encounter Summary ---
Author Organization [facility] Address [address] [place] [phone] Phone Care Team Providers Care Laboratory Machinist Name Role Phone Sherice John MD Primary Care Provider [phone] Joni Deleon MD Unavailable Mikal Jones MD Unavailable Lulú Vizcaino [facility] Unavailable [phone] Reason for Referral * Outpatient Procedure - Closed Specialty Diagnoses / Procedures Referred By Tyler yeung Referred To Contact Radiology Diagnoses Syncope, unspecified syncope type Procedures US Carotid Duplex Complete (Bilateral) Sherice John MD Phone: tel: fax: mailto:[email or web address] Referral ID Status Reason Start Date Expiration Date Visits Re quested Visits Authorized [id number] Closed 11/03/2024 11/03/2025 1 1 Encounter Details Date Type Department Care Team (Latest Contact Info) Description 11/03/2024 Transcribe Orders Virtual Department [address] [place] [address] Sherice John MD [address] [place] [address] Syncope, unspecified syncope type (Primary Dx) Social [...] 1:20 PM EST Office Visit [facility] [address] [place] [address] [place] [address] Rogelio Torrez DO [address] [place] [address] 11/25/2025 1:15 PM EDT Appointment [facility], Bone Density - [address] [address] Rogelio Torrez DO [address] [place] [address] [email or web address] 12/10/2025 10:40 AM EDT Blood Draw [facility] Phleb [facility] [address] [place] [address] Lulú Vizcaino MBBS [address] [place] [address] [email or web address] 12/10/2025 11:40 AM EDT Office Visit [facility] [place] [address] [place] [address] Lulú Vizcaino MB [address] [place] [address] [email or web address] 03/03/2026 8:[address] [facility] Cardiac Arrhythmia Service [address] [facility], 5th Floor, [address] [place] [address] Angel Domínguez MD [address] [facility] [place] [address] [email or web address] documented as of this [...] the gilbert are parallel represents the denominator. Sherice John MD [facility] NEUROVASCULAR Final Resu lt documented in this encounter Visit Diagnoses Diagnosis Syncope, unspecified syncope type- Primary Syncope, unspecified syncope type documented in this encounter Care Teams Laboratory Machinist Relationship Specialty Start Date End Date Sherice John MD [address] [place] [address] [email or web address] PCP - General Internal Medicine 03/08/18 Joni Deleon MD [address] [place] [address] [place] [address] Pulmonary Disease 07/18/23 Mikal Jones MD [address] [place] [address] [place] [address] Cardiology 07/23/23 Lulú Vizcaino MBBS [address] [place] [address] [address] [place] [address] [email or web address] Primary Oncologist Medical Oncology 11/29/23 documented as of this encounter Additional Source Comments The information contained in this document represents components of the legal health record. It is not the complete legal health record.[facility]
--- OUTSIDE RECORDS SUMMARY | 2025-06-22 14:13 | XMS_ITS | Encounter Summary ---
Author Organization [employer] Address [address] [facility] 7t [place] [address] Care Team Providers Care Lime Kiln Tender Name Role Phone Sherice John MD Primary Care Provider [phone] Encounter Details Date Type Department Care Team (Late st Contact Info) Description 04/15/2025 Orders Only [facility] [address] [place] [address] Sherice John MD [address] [place] [address] Social History Tobacco Use Types Packs/Day Years [...] degree (e.g., DEVENDRA, MS, Luis Eduardo, MEd, LEADITE WORKER, MAR[employer]) 02/17/2025 Comments Unknown Sex and Gender [...] Office Visit [facility] MEDICAL [address] [place] [address] Sherice John MD [address] [place] [address] documented as of this encounter Procedures Procedure [...] on filedocumented in this encounter Care Teams Lime Kiln Tender Relationship Specialty Start Date End Date Sherice John MD [address] [place] [address] PCP - General Internal Medicine 08/08/22 documented as of this encounter
--- OUTSIDE RECORDS SUMMARY | 2025-06-22 14:13 | XMS_ITS | Encounter Summary ---
Author Organization [employer] Address [address] [facility] 7t [place] [address] Care Team Providers Care Front Desk Receptionist Name Role Phone Sherice John MD Primary Care Provider [phone] Encounter Details Date Type Department Care Team (Late st Contact Info) Description 05/04/2025 Orders Only [place] [facility] [address] [place] [address] Sherice John MD [address] [place] [address] Social History Tobacco Use Types Packs/Day Years [...] degree (e.g., [place], MS, Luis Eduardo, MEd, STREET VENDOR, MARLIN) 02/17/2025 Comments Unknown Sex and Gender [...] Description 08/04/2025 9:30 AM EST Office Visit [facility] MEDICAL [address] [place] [address] Sherice John MD [address] [place] [address] documented as of this encounter Procedures Procedure Name Priority Date/Time Associated Diagnosis Comments US RENAL BI Routine 05/04/2025 10:56 AM EDT documented in this encounter Results * US RENAL BI (05/04/2025 10:56 AM EDT) Anatomical Region Laterality Modality Abdomen Ultrasound us Sherice John MD IMG US PROCEDURES Final Result documented in this encounter Visit Diagnoses Not on filedocumented in this encounter Care Teams Front Desk Receptionist Relationship Specialty Start Date End Date Sherice John MD [address] [place] [address] PCP - General Internal Medicine 08/08/22 documented as of this encounter
--- OUTSIDE RECORDS SUMMARY | 2025-06-22 14:13 | XMS_ITS | Encounter Summary ---
Author Organization [employer] Address [address] [facility] 7t [place] [address] Care Team Providers Care Fishing Captain Name Role Phone Pauline John MD Primary Care Provider [phone] Reason for Visit * Reason Onset Date Comments Medication Problem 05/25/2023 Encounter Details Date Type Department Care Team (Late st Contact Info) Description 05/25/2023 Telephone [facility] MEDICAL [address] [place] [address] Pauline John MD [address] [place] [address] Medication Problem Social History Tobacco Use Types [...] 08/04/2025 9:30 AM EST Office Visit [facility] MEDICAL [address] [place] [address] Pauline John MD [address] [place] [address] documented as of this encounter Visit Diagnoses Not on filedocumented in this encounter Care Teams Fishing Captain Relationship Specialty Start Date End Date Pauline John MD [address] [place] [address] PCP - General Internal Medicine 08/08/22 documented as of this encounter
== END 2025-06-22 11:47 | disposition home or self-care (01) ==
LOC: HO.HPS 11:12
PROVIDERS: PCP Internal Medicine; Visit Provider Hospitalist
DX: I27.20 Pulmonary hypertension, unspecified (principal); I50.32 Chronic diastolic (congestive) heart failure; R06.09 Other forms of dyspnea; I27.82 Chronic pulmonary embolism; J45.40 Moderate persistent asthma, uncomplicated; G47.33 Obstructive sleep apnea (adult) (pediatric); F51.01 Primary insomnia; M54.50 Low back pain, unspecified; R07.1 Chest pain on breathing
CPT/HCPCS: 99215; G2211

== ENCOUNTER → 2025-06-22 11:11 | Outpatient (BNVA) | payer MEDICARE, OTHER, SELFPAY | PROVIDERS: PCP Internal Medicine; Visit Provider Hospitalist | DX: I50.32 Chronic diastolic (congestive) heart failure (principal); R06.09 Other forms of dyspnea; I27.20 Pulmonary hypertension, unspecified; Z79.01 Long term (current) use of anticoagulants; Z99.81 Dependence on supplemental oxygen; I27.82 Chronic pulmonary embolism; G47.33 Obstructive sleep apnea (adult) (pediatric); Z99.89 Dependence on other enabling machines and devices; M54.50 Low back pain, unspecified | CPT/HCPCS: 99212 ==